=== PATIENT | male | born 1960 | race Caucasian/White ===

== ENCOUNTER 2020-12-25 01:26 | Emergency (ER) | payer MEDICARE, SELFPAY ==
[2020-12-25 01:39] VITALS: BP 120/80; BP 136/82; PULSE 70; PULSE 89; RESP 18; TEMP 37.1; O2SAT 96; O2SAT 98; BMI 26.6
--- NOTE | 2020-12-25 02:12 | ED_ITS ---
HPI - Wound/Laceration General Chief Complaint: Wound/Laceration Stated Complaint: head lac Time Seen by Provider: 12/25/20 02:12 Source: patient and EMS Mode of arrival: EMS History of Present Illness HPI narrative: This is a 60-year-old male who arrives from [facility] via EMS. Patient got out of bed, and was walking and struck his head on the wall without LOC. as per EMS patient is at baseline and ambulated with a steady gait. Patient does not take blood thinners and has no complaints. Related Data Allergies Allergy/AdvReac Type Severity Reaction Status Date / Time No Known Allergies Allergy Unverified 04/05/20 19:36 [No Known Allergies*] Review of Systems Review of Systems: Pertinent positives and negatives as stated in HPI and 10 point review of systems is otherwise negative. 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 Cognitive impairment COPD (chronic obstructive pulmonary disease) COVID-19 Dementia Drug induced subacute dyskinesia Dysphagia Encephalopathy Essential (primary) hypertension Exotropia, alternating, with A pattern Hyperlipidemia Hypermetropia of both eyes Hypothyroidism Palsy (spasm) of conjugate gaze Paranoid schizophrenia Personal history of transient ischemic attack (TIA), and cerebral infarction without residual deficits Ptosis of right eyelid Type 2 diabetes mellitus Surgical History Presence of aortocoronary bypass graft Social History Social History Advance Directives: No Physical Exam Vital Signs: Vital Signs: Last Vital Signs Temp 98.7 F 12/25/20 01:39 Pulse 89 12/25/20 01:39 Resp 18 12/25/20 01:39 BP 136/82 12/25/20 01:39 Pulse Ox 96 12/25/20 01:39 Body Mass Index 26.6 VITAL SIGNS: Reviewed. GENERAL: Well developed, well nourished, in no acute distress. HEAD: Normocephalic/3 cm laceration to the right forehead, hemostatic EYES: PERRLA, EOMI EARS: Ext canals without abnormality NOSE: Nares patent bilateral OROPHARYNX: no oral lesions noted, posterior pharynx clear LUNGS: Normal breath sounds. No adventitious sounds or accessory muscle use. SpO2<96> CARDIOVASCULAR: Regular rate and rhythm without noted murmurs ABDOMEN: Soft, non-tender, non-distended with bowel sounds. NEUROLOGIC: Alert and oriented x 4. Strength and sensation to light touch were grossly intact x 4, noted facial asymmetry with right-sided droop is at baseline, no pronator drift Course Course Course Narrative: This is a 60-year-old male with history and clinical presentation consistent with minor laceration to the right forehead that is hemostatic and was repaired with sutures without complications. He was then discharged back to [facility]. Patient received Tdap. Procedures Laceration Laceration 1: Site: face Side (If applicable): right Size (cm): 3 Description: linear Depth: simple, single layer Local Anesthetic: lidocaine 1% Amount of anesthesia used (mL): 2 Pre-repair: wound explored, irrigated extensively and deep structures intact Skin layer closed with: nylon Size (cm): 4-0 Number of sutures: 6 Technique: simple, interrupted Discharge Plan Discharge Clinical Impression: Laceration Patient Disposition: Home, Self-Care Instructions: Care For Your Stitches (ED), Facial Laceration (ED) Additional Instructions: 1. Resume all home medications as prescribed. 2. May use [id number] Tylenol/ibuprofen as needed for pain control. 3. Sutures should be removed in 5-7 days. May cleanse gently with soap and water and blot dry 4. Follow-up with your primary care provider in next 2-3 days for re-evaluation. Return to the ER for any worsening symptoms. Referrals: Lamonte Jenkins DO [Primary Care Provider] - 2 days (Need suture removal (6))
[2020-12-25 04:00] VITALS: BP 138/71; PULSE 67; RESP 16; O2SAT 98
[2020-12-25] MEDS: Lidocaine HCl 1 % MPF 5 ML VIAL SUBCUT (04:01)
[2020-12-25] MEDS: Diphth,Pertus(ACell),Tet Adult 0.5 ML SYRINGE IM (04:01)
== END 2020-12-25 06:06 | disposition home or self-care (01) ==
PROVIDERS: Emergency Provider Student in an Organized Health Care Education/Training Program; PCP Hospitalist
DX: S01.81XA Laceration without foreign body of other part of head, initial encounter (principal); W22.09XA Striking against other stationary object, initial encounter; I10 Essential (primary) hypertension; E11.9 Type 2 diabetes mellitus without complications; E78.5 Hyperlipidemia, unspecified; Y93.01 Activity, walking, marching and hiking; Y92.129 Unspecified place in nursing home as the place of occurrence of the external cause; Y99.9 Unspecified external cause status; Z86.73 Personal history of transient ischemic attack (TIA), and cerebral infarction without residual deficits
CPT/HCPCS: 12013; 90471; 90715; 99284

== ENCOUNTER 2021-12-13 10:29 | Inpatient (IN) | payer MEDICARE, MEDICAID, SELFPAY ==
[2021-12-13] VITALS (9 sets, daily range): BP systolic 98–136; BP diastolic 50–84; PULSE 75–111; RESP 16–24; TEMP 36.2–36.8; O2SAT 94–99; BMI 25.8; BMI 27.2
--- NOTE | ~2021-12-13 | CT_ITS ---
EXAMINATION: CT CERVICAL SPINE WITHOUT CONTRAST CLINICAL INFORMATION: Fall COMPARISON: None TECHNIQUE: Axial images through the cervical spine without contrast. Sagittal and coronal reconstructions on the technologist workstation were performed. This CT examination was performed using dose optimization techniques as appropriate, variously including the following: *Automated exposure control *Adjustment of mA and/or kV according to patient size (this includes techniques or standardized protocols for targeted exams where dose is matched to indication/reason for exam; i.e. extremities or head) *Use of iterative reconstruction technique DLP: 469 mGy-cm FINDINGS: There is curvature of the lower cervical spine to the left and upper thoracic spine to the right. Bone alignment is otherwise normal. No fracture or dislocation. There is multilevel degenerative spondylosis. Disc spaces are normal. Prevertebral soft tissues are normal. There is atelectasis or consolidation in the posterior right upper lobe. There is evidence of mild emphysema. CT/CT cervical spine wo con IMPRESSION: Degenerative changes. No fracture or dislocation seen. Atelectasis or consolidation in the posterior right upper lobe. Fleischner guidelines were followed.
--- NOTE | ~2021-12-13 | CT_ITS ---
EXAMINATION: CT HEAD WITHOUT CONTRAST CLINICAL INFORMATION: Unwitnessed fall. Lethargy. COMPARISON: None TECHNIQUE: Contiguous axial imaging was performed from the skull base to vertex without intravenous administration of contrast. This CT examination was performed using dose optimization techniques as appropriate, variously including the following: *Automated exposure control *Adjustment of mA and/or kV according to patient size (this includes techniques or standardized protocols for targeted exams where dose is matched to indication/reason for exam; i.e. extremities or head) *Use of iterative reconstruction technique DLP: 692 mGy-cm FINDINGS: There is no evidence of an extra-axial collection. There is no evidence of intra-axial or extra-axial hemorrhage. There is an old left occipital infarct. There is low-attenuation seen at the base of both frontal lobes questionable for changes related to previous trauma, old infarcts or postprocedure changes. [place]-white matter differentiation is normal. No mass or mass effect is seen. Review at bone windows demonstrates no skull fracture. There are mild inflammatory changes in the right maxillary sinus. CT/CT head/brain wo con IMPRESSION: No acute findings. Old left occipital lobe infarct. Low-attenuation seen at the base of both frontal lobes questionable for changes related to previous trauma, old infarcts or postprocedure changes.
--- NOTE | ~2021-12-13 | XR_ITS ---
EXAMINATION: XR CHEST CLINICAL INFORMATION: Shortness of breath. COMPARISON: 11/12/2019 TECHNIQUE: Frontal view of the chest was obtained. FINDINGS: Lungs are symmetrically hypoinflated and grossly clear. No pulmonary edema, consolidation or pleural effusion. No pneumothorax. Cardiac silhouette is normal in size, status post coronary artery bypass graft surgery and coronary artery stenting. The sternotomy wires are intact. The mild gaseous distention of colon is similar in appearance compared to 11/12/2019. XR/XR chest 1V IMPRESSION: No acute pulmonary disease compared to 11/12/2019.
--- NOTE | 2021-12-13 10:59 | ECG_ITS ---
Test Reason : fall Blood Pressure : / mmHG Vent. Rate : 102 BPM Atrial Rate : 000 BPM P-R Int : 000 ms QRS Dur : 092 ms QT Int : 322 ms P-R-T Axes : 000 032 110 degrees QTc Int : 419 ms Atrial fibrillation with rapid ventricular response Nonspecific T wave changes Abnormal ECG When compared with ECG of 12-NOV-2019 11:24, Atrial fibrillation has replaced Sinus rhythm Nonspecific T wave abnormality, improved in Inferior leads Nonspecific T wave abnormality now evident in Lateral leads Referred By: Patricia Andrade Electronically Signed By:Jeb Silveira
--- NOTE | 2021-12-13 11:05 | ED.FALL ---
HPI - Fall General Chief Complaint: Fall Stated Complaint: Fall T-1 Time Seen by Provider: 12/13/21 10:52 Source: EMS, RN notes reviewed and old records reviewed Mode of arrival: EMS Limitations: altered mental status History of Present Illness HPI Narrative: 61 yo male with history of dementia, COPD, DM2, presbyopia, dysphagia, dyskinesia, anemia, hypothyroidism, paranoid schizophrenia, CAD s/p CABG, hx TIA, HLD who presents to the ER from [facility] for evaluation of an unwitnessed fall last night, unknown time. SNF reporting he fell forward out of his wheelchair and patient reported he fell out of his bed. He is lethargic and unable to provide further details. He denies any pain anywhere but has visible abrasions on his head and right wrist. SNF reports this is his baseline mental status. He is not on anticoagulation. complaint: fall Onset (ago): unknown Fall from: out of bed Fall witnessed: no Place fall occurred: long term/SNF Loss of consciousness: unsure Prolonged down time: unclear Location of injury: head Location of injury - extremities: right: forearm and hand Associated symptoms (after fall): denies Related Data Allergies Allergy/AdvReac Type Severity Reaction Status Date / Time No Known Allergies Allergy Unverified 04/05/20 19:36 [No Known Allergies*] Review of Systems Review of Systems: Yes Unobtainable due to mental condition and Unobtainable due to mental status PMFSH Past Medical History Medical History Altered mental status Amblyopia, left eye Anemia 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 Cognitive impairment COPD (chronic obstructive pulmonary disease) COVID-19 Dementia Drug induced subacute dyskinesia Dysphagia Encephalopathy Essential (primary) hypertension Exotropia, alternating, with A pattern Hyperlipidemia Hypermetropia of both eyes Hypothyroidism Palsy (spasm) of conjugate gaze Paranoid schizophrenia Personal history of transient ischemic attack (TIA), and cerebral infarction without residual deficits Ptosis of right eyelid Type 2 diabetes mellitus Surgical History Presence of aortocoronary bypass graft Social History Social History Patient Tobacco Use Status: Tobacco use Unknown Advance Directives: Yes Advance Directives Information Provided: No Advance Directives on File: No Physical Exam Vital Signs: Vital Signs: Last Vital Signs Temp 97.2 F 12/13/21 10:55 Pulse 100 12/13/21 13:00 Resp 17 12/13/21 13:00 BP 99/65 12/13/21 13:00 Pulse Ox 98 12/13/21 13:00 BMI result Body Mass Index 27.2 Appearance: Lethargic elderly male laying in stretcher, c-collar in place. No acute distress. Eyes: Pupils equal, round and reactive to light. left eye deviation ENT: Pharynx normal. Neck: C collar in place, no midline tenderness CVS: tachycardic, irregularly irregular rhythm. Pulses normal. Respiratory: No respiratory distress. Breath sounds normal. Abdomen: Soft and nontender. +BS x4 Skin: Skin warm and dry. Normal skin color. Normal skin turgor. No rashes. Extremities: right dorsal distal forearm and posterior hand with minor abrasions, no joint swelling or point tenderness. No lower extremity edema. No LE trauma visible. Pelvis stable and nontender. Neuro: Oriented X 1. Moves all extremities, follows basic commands intermittently. Course Course Course Narrative: 61 y/o male with history of dementia, paranoid schizophrenia who comes from [facility] for evaluation of an unwitnessed fall. On examination he has minor abrasions to his forehead and scalp, right wrist and hand. He denies any pain. He is lethargic but this is reportedly is baseline mental status. He is found to be new onset AFib with rapid ventricular response, heart rate 1 teens. The blood pressure stable [address] head and neck to rule out traumatic injury, lab workup. Reevaluation(s) Reevaluation #1: Critical result of troponin 466.2. He has a history of CABG, unknown when and where and on what vessel. He denies any shortness of breath or chest pain at this time. Awaiting CT head and neck results prior to initiating heparin for NSTEMI. Given 5 mg IV lopressor with improvement in heart rates to 90s. Blood pressure remained stable. Dr. Silveira has been tired texted for consultation. lactic 2.4. patient not septic at this time. low suspicion for acute infection. UA is still pending, patient currently refusing. IVF infusing, repeat lactic ordered. BP stable. Reevaluation #2: Dr. Silveira agrees with medical management. CT head/neck without acute traumatic findings. IV heparin ordered as well as additional metoprolol, HR back up 110s. Dr. Arguello TT for admission for NSTEMI and new onset afib. Reevaluation #3: 2:30 - converted to NSR. HR 80s. repeat EKG and troponin pending. Consultations Consultation #1: Cardiology - Dr. Silveira [facility] - [facility] Medical Records Attestation: I reviewed the patient's medical records. Lab Data Attestation: I reviewed the patient's lab results. Result diagrams: 12/13/21 11:24 12/13/21 11:24 Labs: Lab Results 12/13/21 12/13/21 12/13/21 Range/Units 11:05 11:23 11:24 WBC 13.8 H (4.8-10.8) X10*3/uL RBC 4.94 (4.60-5.80) X10*6/uL Hgb 14.1 (14.0-18.0) g/dl Hct 42.2 (42.0-52.0) % MCV 85.4 (80.0-98.0) fL MCH 28.5 (27.0-33.0) pg MCHC 33.4 (31.0-36.0) g/dl RDW 15.0 (11.0-16.0) % Plt Count 194 (160-400) X10*3/uL MPV 10.4 (9.4-12.4) fL Immature Gran % (Auto) 0.4 (0.0-0.4) % Neut % (Auto) 75.8 H (45-73) % Lymph % (Auto) 11.7 L (20-40) % [place] % (Auto) 11.9 H (2-11) % Eos % (Auto) 0.1 (0-4) % Baso % (Auto) 0.1 (0-2) % Lymph # (Auto) 1.6 (1.2-4.9) X10*3/uL [place] # (Auto) 1.6 H (0.1-1.2) X10*3/uL Eos # (Auto) 0.0 (0.0-0.4) X10*3/uL Baso # (Auto) 0.0 (0.0-0.2) X10*3/uL Abs Immat Gran (auto) 0.06 H (0.00-0.03) X10*3/uL Absolute Neuts (auto) 10.5 H (2.0-8.3) x10*3/uL Absolute Nucleated RBC 0.000 (0.0-0.012) X10*3/uL Nucleated RBC % (auto) 0.0 (0.0-0.2) /100WBC Smear Tech's Comments VERIFIED PT (9.9-13.0) SEC INR (0.9-1.1) APTT (24.1-38.0) SEC Sodium (135-145) mmol/L Potassium (3.3-5.1) mmol/L Chloride (96-108) mmol/L Carbon Dioxide (22-29) mmol/L Anion Gap (12-20) BUN (9-16) mg/dL Creatinine (0.5-1.4) mg/dL Estim Creat Clear Calc Estimated GFR POC Glucose 148 H (60-115) mg/dL Random Glucose (60-115) mg/dL Lactic Acid (0.5-2.0) mmol/L Calcium (8.4-10.2) mg/dL Magnesium (1.6-2.6) mg/dL Total Bilirubin (0.0-1.0) mg/dL Direct Bilirubin (0.0-0.5) mg/dL AST (5-37) U/L ALT (0-40) U/L Alkaline Phosphatase (39-117) U/L Ammonia 19 (13-55) umol/L Troponin I High Sens (<3.5-35.0) ng/L B-Natriuretic Peptide (<100) pg/mL Total Protein (6.5-8.0) g/dL Albumin (3.5-5.0) g/dL TSH (0.32-4.0) uIU/mL COVID-19 (NEEMA) (Negative) COVID-19 Clin Com Influenza Type A (JORGE L) (Negative) Influenza Type B (JORGE L) (Negative) Influenza A & B Note 12/13/21 12/13/21 12/13/21 Range/Units 11:24 11:24 11:24 WBC (4.8-10.8) X10*3/uL RBC (4.60-5.80) X10*6/uL Hgb (14.0-18.0) g/dl Hct (42.0-52.0) % MCV (80.0-98.0) fL MCH (27.0-33.0) pg MCHC (31.0-36.0) g/dl RDW (11.0-16.0) % Plt Count (160-400) X10*3/uL MPV (9.4-12.4) fL Immature Gran % (Auto) (0.0-0.4) % Neut % (Auto) (45-73) % Lymph % (Auto) (20-40) % [place] % (Auto) (2-11) % Eos % (Auto) (0-4) % Baso % (Auto) (0-2) % Lymph # (Auto) (1.2-4.9) X10*3/uL [place] # (Auto) (0.1-1.2) X10*3/uL Eos # (Auto) (0.0-0.4) X10*3/uL Baso # (Auto) (0.0-0.2) X10*3/uL Abs Immat Gran (auto) (0.00-0.03) X10*3/uL Absolute Neuts (auto) (2.0-8.3) x10*3/uL Absolute Nucleated RBC (0.0-0.012) X10*3/uL Nucleated RBC % (auto) (0.0-0.2) /100WBC Smear Tech's Comments PT 13.5 H (9.9-13.0) SEC INR 1.2 H (0.9-1.1) APTT 35.1 (24.1-38.0) SEC Sodium 136 (135-145) mmol/L Potassium 4.1 (3.3-5.1) mmol/L Chloride 102 (96-108) mmol/L Carbon Dioxide 25 (22-29) mmol/L Anion Gap 13 (12-20) BUN 13 (9-16) mg/dL Creatinine 0.93 (0.5-1.4) mg/dL Estim Creat Clear Calc 79.6 Estimated GFR > 60 POC Glucose (60-115) mg/dL Random Glucose 151 H (60-115) mg/dL Lactic Acid (0.5-2.0) mmol/L Calcium 9.6 (8.4-10.2) mg/dL Magnesium 1.8 (1.6-2.6) mg/dL Total Bilirubin 0.9 (0.0-1.0) mg/dL Direct Bilirubin 0.4 (0.0-0.5) mg/dL AST 58 H (5-37) U/L ALT 25 (0-40) U/L Alkaline Phosphatase 115 (39-117) U/L Ammonia (13-55) umol/L Troponin I High Sens 466.2 H* (<3.5-35.0) ng/L B-Natriuretic Peptide 79 (<100) pg/mL Total Protein 6.8 (6.5-8.0) g/dL Albumin 4.0 (3.5-5.0) g/dL TSH (0.32-4.0) uIU/mL COVID-19 (NEEMA) (Negative) COVID-19 Clin Com Influenza Type A (JORGE L) (Negative) Influenza Type B (JORGE L) (Negative) Influenza A & B Note 12/13/21 12/13/21 12/13/21 Range/Units 11:24 11:25 11:39 WBC (4.8-10.8) X10*3/uL RBC (4.60-5.80) X10*6/uL Hgb (14.0-18.0) g/dl Hct (42.0-52.0) % MCV (80.0-98.0) fL MCH (27.0-33.0) pg MCHC (31.0-36.0) g/dl RDW (11.0-16.0) % Plt Count (160-400) X10*3/uL MPV (9.4-12.4) fL Immature Gran % (Auto) (0.0-0.4) % Neut % (Auto) (45-73) % Lymph % (Auto) (20-40) % [place] % (Auto) (2-11) % Eos % (Auto) (0-4) % Baso % (Auto) (0-2) % Lymph # (Auto) (1.2-4.9) X10*3/uL [place] # (Auto) (0.1-1.2) X10*3/uL Eos # (Auto) (0.0-0.4) X10*3/uL Baso # (Auto) (0.0-0.2) X10*3/uL Abs Immat Gran (auto) (0.00-0.03) X10*3/uL Absolute Neuts (auto) (2.0-8.3) x10*3/uL Absolute Nucleated RBC (0.0-0.012) X10*3/uL Nucleated RBC % (auto) (0.0-0.2) /100WBC Smear Tech's Comments PT (9.9-13.0) SEC INR (0.9-1.1) APTT (24.1-38.0) SEC Sodium (135-145) mmol/L Potassium (3.3-5.1) mmol/L Chloride (96-108) mmol/L Carbon Dioxide (22-29) mmol/L Anion Gap (12-20) BUN (9-16) mg/dL Creatinine (0.5-1.4) mg/dL Estim Creat Clear Calc Estimated GFR POC Glucose (60-115) mg/dL Random Glucose (60-115) mg/dL Lactic Acid 2.4 H* (0.5-2.0) mmol/L Calcium (8.4-10.2) mg/dL Magnesium (1.6-2.6) mg/dL Total Bilirubin (0.0-1.0) mg/dL Direct Bilirubin (0.0-0.5) mg/dL AST (5-37) U/L ALT (0-40) U/L Alkaline Phosphatase (39-117) U/L Ammonia (13-55) umol/L Troponin I High Sens (<3.5-35.0) ng/L B-Natriuretic Peptide (<100) pg/mL Total Protein (6.5-8.0) g/dL Albumin (3.5-5.0) g/dL TSH 0.42 (0.32-4.0) uIU/mL COVID-19 (NEEMA) Negative (Negative) COVID-19 Clin Com See Note Influenza Type A (JORGE L) (Negative) Influenza Type B (JORGE L) (Negative) Influenza A & B Note 12/13/21 Range/Units 11:39 WBC (4.8-10.8) X10*3/uL RBC (4.60-5.80) X10*6/uL Hgb (14.0-18.0) g/dl Hct (42.0-52.0) % MCV (80.0-98.0) fL MCH (27.0-33.0) pg MCHC (31.0-36.0) g/dl RDW (11.0-16.0) % Plt Count (160-400) X10*3/uL MPV (9.4-12.4) fL Immature Gran % (Auto) (0.0-0.4) % Neut % (Auto) (45-73) % Lymph % (Auto) (20-40) % [place] % (Auto) (2-11) % Eos % (Auto) (0-4) % Baso % (Auto) (0-2) % Lymph # (Auto) (1.2-4.9) X10*3/uL [place] # (Auto) (0.1-1.2) X10*3/uL Eos # (Auto) (0.0-0.4) X10*3/uL Baso # (Auto) (0.0-0.2) X10*3/uL Abs Immat Gran (auto) (0.00-0.03) X10*3/uL Absolute Neuts (auto) (2.0-8.3) x10*3/uL Absolute Nucleated RBC (0.0-0.012) X10*3/uL Nucleated RBC % (auto) (0.0-0.2) /100WBC Smear Tech's Comments PT (9.9-13.0) SEC INR (0.9-1.1) APTT (24.1-38.0) SEC Sodium (135-145) mmol/L Potassium (3.3-5.1) mmol/L Chloride (96-108) mmol/L Carbon Dioxide (22-29) mmol/L Anion Gap (12-20) BUN (9-16) mg/dL Creatinine (0.5-1.4) mg/dL Estim Creat Clear Calc Estimated GFR POC Glucose (60-115) mg/dL Random Glucose (60-115) mg/dL Lactic Acid (0.5-2.0) mmol/L Calcium (8.4-10.2) mg/dL Magnesium (1.6-2.6) mg/dL Total Bilirubin (0.0-1.0) mg/dL Direct Bilirubin (0.0-0.5) mg/dL AST (5-37) U/L ALT (0-40) U/L Alkaline Phosphatase (39-117) U/L Ammonia (13-55) umol/L Troponin I High Sens (<3.5-35.0) ng/L B-Natriuretic Peptide (<100) pg/mL Total Protein (6.5-8.0) g/dL Albumin (3.5-5.0) g/dL TSH (0.32-4.0) uIU/mL COVID-19 (NEEMA) (Negative) COVID-19 Clin Com Influenza Type A (JORGE L) Negative (Negative) Influenza Type B (JORGE L) Negative (Negative) Influenza A & B Note See Note ECG Data Attestation: I personally reviewed and interpreted this ECG as follows: ECG interpretation date: 12/13/21 ECG interpretation time: 11:43 Prior ECG tracings: available for review Interpretation: 1st - afib with RVR, HR 102 bpm, no ST segment elevations or depressions, new onset afib from 2019 2nd @ 2:39 - sinus rhythm with sinus arrhythmia, heart rate 75 beats per minute, P-waves present with short run of ?AFib buried within, no ST segment elevations or depressions. Critical Care Time Critical Care Time Critical Care Time: Yes Total Critical Care Time: 48 Attestation: I have personally provided critical care time exclusive of time spent on separately billable procedures. Time includes review of lab data, radiology results, discussion with consultants, and monitoring for potential decompensation. Intervention performed as documented. Discharge Plan Discharge Clinical Impression: Non-ST elevation [place] (NSTEMI), Atrial fibrillation, new onset Patient Disposition: Admitted As Inpatient
[2021-12-13 11:09] LABS: Glucose, Whole Blood 148 mg/dL (60-115)
[2021-12-13] MEDS: 0.9 % Sodium Chloride 1,000 ML 999 ML IVCONT (11:27)
--- NOTE | 2021-12-13 11:30 | PC.NURSE ---
pt very sleepy but does wake up to touch, pt does not open his eyes on his own, when lids lifted pupils pinpoint but reactive to light, abrasions to his right/frontal hear area, but not answering questions will just grunt at this time, pt also slightly tachy cardic around 110-113 a-fib
[2021-12-13 11:32] LABS: Basophils Percent Auto 0.1 % (0-2); Eosinophils Percent Auto 0.1 % (0-4); Hematocrit 42.2 % (42.0-52.0); Hemoglobin 14.1 g/dl (14.0-18.0); Imm Gran Abs Auto 0.06 X10*3/uL (0.00-0.03); Imm Gran Pct Auto 0.4 % (0.0-0.4); Lymphocytes Absolute Auto 1.6 X10*3/uL (1.2-4.9); Lymphocytes Percent Auto 11.7 % (20-40); MANUAL DIFF FLAG SCAN; Mean Corpuscular HGB Conc 33.4 g/dl (31.0-36.0); Mean Corpuscular Hemoglobin 28.5 pg (27.0-33.0); Mean Corpuscular Volume 85.4 fL (80.0-98.0); Mean Platelet Volume 10.4 fL (9.4-12.4); Monocytes Absolute Auto 1.6 X10*3/uL (0.1-1.2); Monocytes Percent Auto 11.9 % (2-11); Neutrophils Absolute Auto 10.5 x10*3/uL (2.0-8.3); Neutrophils Percent Auto 75.8 % (45-73); Platelet Count 194 X10*3/uL (160-400); Red Blood Count 4.94 X10*6/uL (4.60-5.80); SCAN SMEAR FLAG 1; White Blood Count 13.8 X10*3/uL (4.8-10.8)
[2021-12-13 11:37] LABS: INTERNATIONAL NORM RATIO 1.2 (0.9-1.1); Prothrombin Time 13.5 SEC (9.9-13.0)
[2021-12-13 11:38] LABS: Ammonia 19 umol/L (13-55)
[2021-12-13 11:40] LABS: Partial Thromboplastin Time 35.1 SEC (24.1-38.0)
[2021-12-13 11:48] LABS: Alanine Aminotransferase 25 U/L (0-40); Alkaline Phosphatase 115 U/L (39-117); Anion Gap 13 (12-20); Aspartate Amino Transferase 58 U/L (5-37); Bilirubin Direct 0.4 mg/dL (0.0-0.5); Bilirubin Total 0.9 mg/dL (0.0-1.0); Blood Urea Nitrogen 13 mg/dL (9-16); Calcium 9.6 mg/dL (8.4-10.2); Carbon Dioxide 25 mmol/L (22-29); Chloride 102 mmol/L (96-108); Creatinine Clr Calc Pharmacy 79.6; Estimated Glomerular Filt Rate > 60; Glucose Random 151 mg/dL (60-115); Magnesium 1.8 mg/dL (1.6-2.6); Potassium 4.1 mmol/L (3.3-5.1); Sodium 136 mmol/L (135-145); Total Protein 6.8 g/dL (6.5-8.0)
[2021-12-13 11:49] LABS: SLIDE REVIEW VERIFIED
[2021-12-13 11:55] LABS: Troponin-I High Sensitivity 466.2 ng/L (<3.5-35.0)
[2021-12-13 11:56] LABS: Lactic Acid 2.4 mmol/L (0.5-2.0)
[2021-12-13 12:07] LABS: IDNOW Serial# 9DB6401D; Influenza A Negative (Negative); Influenza B2 Negative (Negative)
[2021-12-13 12:09] LABS: COVID-19 Test Negative (Negative); IDNOW Serial# 55D5AD1C
[2021-12-13 12:09] LABS: TSH reflex Free T4 0.42 uIU/mL (0.32-4.0)
[2021-12-13] MEDS: Metoprolol Tartrate 5 MG/5 ML VIAL IVPUSH (12:11)
--- NOTE | 2021-12-13 12:15 | PC.NURSE ---
attempting to strey cath the pt, pt becomes very agitated and combative swinging at this rn aware that unable to obtain a urine sample at this time
[2021-12-13 12:35] LABS: B Type Natriuretic Peptide 79 pg/mL (<100)
[2021-12-13 13:28] LABS: Reflex Lactate? Lactic Acid Added
--- NOTE | 2021-12-13 14:30 | PC.NURSE ---
pt broke the a-fib and is in normal sinus
--- NOTE | 2021-12-13 14:32 | ECG_ITS ---
Test Reason : weakness Blood Pressure : / mmHG Vent. Rate : 075 BPM Atrial Rate : 075 BPM P-R Int : 234 ms QRS Dur : 088 ms QT Int : 346 ms P-R-T Axes : 044 021 066 degrees QTc Int : 386 ms Sinus rhythm Premature atrial complexes with 1st degree A-V block Otherwise normal ECG When compared with ECG of 13-DEC-2021 11:18, Sinus rhythm has replaced Atrial fibrillation Referred By: Patricia Andrade Electronically Signed By:Jeb Silveira
--- NOTE | 2021-12-13 14:57 | P.HPHOSP_ITS ---
History of Present Illness Date of Service: 12/13/21 Chief Complaint: Fall, new Afib 61 yo male from [facility] with history of dementia, paranoid schizophrenia, COPD, DM2, presbyopia, dysphagia, dyskinesia, anemia, hypothyroidism, enia, CAD s/p CABG, hx TIA, HLD brought to ED to be evaluated for an night with unclear circumstance, but believed that he fell forward as he has injury to the forhead while in a wheelchair, although the patient states that he fell out of a bed but he is a very unreliable historian as he is not able to elaborate on any detail. He is found to be in AFIB with RVR given IV metoprolol 5 mg coverted to sinus but then went back into it. His initial troponin is 466, he denies chest pain , ECG show no obvious ischemic changes. Review of Systems Review of Systems: no chest pain baseline confusion no palpitation Yes all other systems are reviewed and are negative ON LICENSE OF [facility] Medical History Altered mental status Amblyopia, left eye Anemia Atherosclerotic heart disease of [place] coronary artery without angina pectoris Boutonniere deformity of finger Cognitive impairment COPD (chronic obstructive pulmonary disease) COVID-19 Dementia Drug induced subacute dyskinesia Dysphagia Encephalopathy Essential (primary) hypertension Exotropia, alternating, with A pattern Hyperlipidemia Hypermetropia of both eyes Hypothyroidism Palsy (spasm) of conjugate gaze Paranoid schizophrenia Personal history of transient ischemic attack (TIA), and cerebral infarction without residual deficits Ptosis of right eyelid Type 2 diabetes mellitus Surgical History Presence of aortocoronary bypass graft Social History Patient Tobacco Use Status: Tobacco use Unknown Advance Directives: Yes Advance Directives Information Provided: No Advance Directives on File: No service: No Current occupational status: disabled Meds Allergies Allergy/AdvReac Type Severity Reaction Status Date / Time No Known Allergies Allergy Unverified 04/05/20 19:36 [No Known Allergies*] Active Medications: Current Medications Heparin Sodium (Porcine) (Heparin Sodium,Porcine 5,000 Unit/Ml Vial) 3,300 unit 40 unit/kg (3300 unit) IVPUSH PROTOCOL BOLUS PRN; Protocol PRN Reason: 40 unit/kg - Heparin Protocol Heparin Sodium (Porcine) (Heparin Sodium,Porcine 5,000 Unit/Ml Vial) 6,500 unit 80 unit/kg (6500 unit) IVPUSH PROTOCOL BOLUS PRN; Protocol PRN Reason: 80 unit/kg - Heparin Protocol Heparin Sodium/Sodium Chloride () 25,000 unit in 250 mls @ 0 mls/hr IVCONT .Q0M COLIN; Protocol Home Medications Medication Instructions Recorded Confirmed Last Taken Type aspirin 81 mg chewable tablet 81 mg PO DAILY 12/13/21 12/13/21 12/12/21 History atorvastatin 80 mg tablet 1 tab PO DAILY 12/13/21 12/13/21 12/12/21 History canagliflozin 100 mg tablet 1 tab PO DAILY 12/13/21 12/13/21 12/12/21 History (Invokana) clozapine 200 mg tablet 1 tab PO BEDTIME 12/13/21 12/13/21 12/12/21 History dulaglutide 0.75 mg/0.5 mL 0.5 ml SUBCUT WE 12/13/21 12/13/21 12/12/21 History subcutaneous pen injector (Trulicity) ferrous sulfate 325 mg (65 mg 325 mg PO DAILY 12/13/21 12/13/21 12/12/21 History iron) tablet insulin glargine 100 unit/mL (3 20 unit SUBCUT BID 12/13/21 12/13/21 12/12/21 History mL) subcutaneous pen (Lantus Solostar U-100 Insulin) lactulose 10 gram/15 mL oral 30 ml PO DAILY 12/13/21 12/13/21 12/12/21 History solution levothyroxine 75 mcg tablet 1 tab PO DAILY 12/13/21 12/13/21 12/12/21 History linagliptin 5 mg tablet (Tradjenta) 1 tab PO DAILY 12/13/21 12/13/21 12/12/21 History metformin 1,000 mg tablet 1 tab PO BID 12/13/21 12/13/21 12/12/21 History omega 3-vma-gpx-fish oil 1,000 mg 1 cap PO BID 12/13/21 12/13/21 12/12/21 History (120 mg-180 mg) capsule (Fish Oil) pantoprazole 40 mg tablet,delayed 1 tab PO BID 12/13/21 12/13/21 12/12/21 History release Physical Exam Vital Signs and Narrative: Vital Signs: Last Vital Signs Temp 97.2 F 12/13/21 10:55 Pulse 100 12/13/21 13:00 Resp 17 12/13/21 13:00 BP 99/65 12/13/21 13:00 Pulse Ox 98 12/13/21 13:00 BMI result Body Mass Index 27.2 Const: Other: Constitutional: Alert, in no distress, overweight. Mental Status: Oriented to person, place and time. Eyes: Pupils are equal, round and reactive to light. Ear, Nose and Throat: Oropharynx clear, mucous membranes moist. Ears and nose without eformities. Trachea midline. Respiratory: Clear to auscultation. No wheezing, rales or rhonchi. Cardiovascular: S1 S2 iregul irregular. No murmurs, rubs or gallops. Gastrointestinal: Abdomen soft, non-tender, non-distended. Normal bowel sounds.? Neurologic: Cranial nerves II-XII grossly intact. No focal neurological deficits. Moves all extremities spontaneously.? Skin: No rashes or lesions.? Musculoskeletal: No cyanosis or clubbing. Psychiatric: Normal mood and affect? Results Labs CBC and Chem 7: 12/13/21 11:24 12/13/21 11:24 Labs: Laboratory Results - last 24 hr 12/13/21 12/13/21 12/13/21 11:05 11:23 11:24 MCV 85.4 MCH 28.5 MCHC 33.4 RDW 15.0 Plt Count 194 MPV 10.4 Immature Gran % (Auto) 0.4 Neut % (Auto) 75.8 H Lymph % (Auto) 11.7 L [place] % (Auto) 11.9 H Eos % (Auto) 0.1 Baso % (Auto) 0.1 Lymph # (Auto) 1.6 [place] # (Auto) 1.6 H Eos # (Auto) 0.0 Baso # (Auto) 0.0 Abs Immat Gran (auto) 0.06 H Absolute Neuts (auto) 10.5 H Absolute Nucleated RBC 0.000 Nucleated RBC % (auto) 0.0 Smear Tech's Comments VERIFIED PT INR APTT Anion Gap Estim Creat Clear Calc Estimated GFR POC Glucose 148 H Random Glucose Lactic Acid Calcium Magnesium Total Bilirubin Direct Bilirubin AST ALT Alkaline Phosphatase Ammonia 19 Troponin I High Sens B-Natriuretic Peptide Total Protein Albumin TSH COVID-19 (NEEMA) COVID-19 Clin Com Influenza Type A (JORGE L) Influenza Type B (JORGE L) Influenza A & B Note 12/13/21 12/13/21 12/13/21 11:24 11:24 11:24 MCV MCH MCHC RDW Plt Count MPV Immature Gran % (Auto) Neut % (Auto) Lymph % (Auto) [place] % (Auto) Eos % (Auto) Baso % (Auto) Lymph # (Auto) [place] # (Auto) Eos # (Auto) Baso # (Auto) Abs Immat Gran (auto) Absolute Neuts (auto) Absolute Nucleated RBC Nucleated RBC % (auto) Smear Tech's Comments PT 13.5 H INR 1.2 H APTT 35.1 Anion Gap 13 Estim Creat Clear Calc 79.6 Estimated GFR > 60 POC Glucose Random Glucose 151 H Lactic Acid Calcium 9.6 Magnesium 1.8 Total Bilirubin 0.9 Direct Bilirubin 0.4 AST 58 H ALT 25 Alkaline Phosphatase 115 Ammonia Troponin I High Sens 466.2 H* B-Natriuretic Peptide 79 Total Protein 6.8 Albumin 4.0 TSH COVID-19 (NEEMA) COVID-19 Clin Com Influenza Type A (JORGE L) Influenza Type B (JORGE L) Influenza A & B Note 12/13/21 12/13/21 12/13/21 11:24 11:25 11:39 MCV MCH MCHC RDW Plt Count MPV Immature Gran % (Auto) Neut % (Auto) Lymph % (Auto) [place] % (Auto) Eos % (Auto) Baso % (Auto) Lymph # (Auto) [place] # (Auto) Eos # (Auto) Baso # (Auto) Abs Immat Gran (auto) Absolute Neuts (auto) Absolute Nucleated RBC Nucleated RBC % (auto) Smear Tech's Comments PT INR APTT Anion Gap Estim Creat Clear Calc Estimated GFR POC Glucose Random Glucose Lactic Acid 2.4 H* Calcium Magnesium Total Bilirubin Direct Bilirubin AST ALT Alkaline Phosphatase Ammonia Troponin I High Sens B-Natriuretic Peptide Total Protein Albumin TSH 0.42 COVID-19 (NEEMA) Negative COVID-19 Clin Com See Note Influenza Type A (JORGE L) Influenza Type B (JORGE L) Influenza A & B Note 12/13/21 11:39 MCV MCH MCHC RDW Plt Count MPV Immature Gran % (Auto) Neut % (Auto) Lymph % (Auto) [place] % (Auto) Eos % (Auto) Baso % (Auto) Lymph # (Auto) [place] # (Auto) Eos # (Auto) Baso # (Auto) Abs Immat Gran (auto) Absolute Neuts (auto) Absolute Nucleated RBC Nucleated RBC % (auto) Smear Tech's Comments PT INR APTT Anion Gap Estim Creat Clear Calc Estimated GFR POC Glucose Random Glucose Lactic Acid Calcium Magnesium Total Bilirubin Direct Bilirubin AST ALT Alkaline Phosphatase Ammonia Troponin I High Sens B-Natriuretic Peptide Total Protein Albumin TSH COVID-19 (NEEMA) COVID-19 Clin Com Influenza Type A (JORGE L) Negative Influenza Type B (JORGE L) Negative Influenza A & B Note See Note Imaging Radiologist's Impressions: Impressions Cervical Spine CT 12/13/21 12:35 IMPRESSION: Degenerative changes. No fracture or dislocation seen. Atelectasis or consolidation in the posterior right upper lobe. Fleischner guidelines were followed. Head CT 12/13/21 12:35 IMPRESSION: No acute findings. Old left occipital lobe infarct. Low-attenuation seen at the base of both frontal lobes questionable for changes related to previous trauma, old infarcts or postprocedure changes. Assessment and Plan (1) Non-ST elevation [place] (NSTEMI): Status: Acute (2) Atrial fibrillation, new onset: Status: Acute Plan 61 yo male from [facility] with history of dementia, paranoid schizophrenia, COPD, DM2, presbyopia, dysphagia, dyskinesia, anemia, hypothyroidism, enia, CAD s/p CABG, hx TIA, HLD being admitted for new onset AFIB, and NSTEMMI and ? syncope #AFIB with RVR--improved with IV metoprolol, will add oral Metoprolol 25 q6, echo tomorrow, anticoagulation with heparin #NSTEMI--Medical management with Heparin, ASA, BB, statin and cardiology to assess #? 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
[2021-12-13] MEDS: Heparin Sodium,Porcine/1/2NS 25,000 UNIT/250 ML IV.SOLN 9.76 UNIT IVCONT (15:20)
--- NOTE | 2021-12-13 15:34 | PC.NURSE ---
mariah perez delayed because pt pulled out his original iv out, hard stick finally gained another iv access pt is back in a-fib but rate controlled in the '
[2021-12-13 15:35] LABS: ~Lactic Acid-LAB USE ONLY 1.7 mmol/L (0.5-2.0)
[2021-12-13] MEDS: 0.9 % Sodium Chloride Flush 3 ML SYRINGE IVFLUSH (15:37)
[2021-12-13 15:47] LABS: Troponin-I High Sensitivity 367.3 ng/L (<3.5-35.0)
[2021-12-13] MEDS: Metoprolol Tartrate 25 MG TABLET PO ×2 (16:27→21:20)
--- NOTE | 2021-12-13 17:03 | PC.NURSE ---
PATIENT WAS INC OF URINE ,CARE WAS GIVEN AND BEDDING CHANGED .
[2021-12-13 17:12] LABS: Glucose, Whole Blood 98 mg/dL (60-115)
--- NOTE | 2021-12-13 17:13 | PHA.MEDREC ---
Pharmacy Consult ? Medication Reconciliation Pharmacy has completed the medication reconciliation. LAST CLOZAPINE DOSE 12/12
[2021-12-13 17:36] LABS: Appearance Urine CLEAR; Color Urine YELLOW; Glucose Urine UA >=1000 MG/DL (NEG); Leukocyte Esterase Urine NEG (NEG); Nitrite Urine NEG (NEG); PH 5.5 (5.0-8.0); UACC Culture Trigger NO; Urine Blood TRACE (NEG); Urine Ketones NEG (NEG); Urine Protein NEG (NEG-TRACE)
[2021-12-13 17:45] LABS: Squamous Epithelial Cell Urine 1+ /LPF; WBC Urine 0 /HPF (0-4)
[2021-12-13] MEDS: Atorvastatin Calcium 40 MG TABLET PO (21:21)
[2021-12-13] MEDS: Docusate Sodium 100 MG CAPSULE PO (21:21)
[2021-12-13 22:13] LABS: PTT Heparin Drip 72.9 SEC (53-77.9)
--- NOTE | 2021-12-13 23:46 | PC.NURSE ---
pt provided perineal care & linen change
[2021-12-14] VITALS (9 sets, daily range): BP systolic 96–122; BP diastolic 56–82; PULSE 77–87; RESP 12–19; TEMP 35.9–36.4; O2SAT 96–100
--- NOTE | 2021-12-14 02:43 | PC.NURSE ---
pt note secondary to pt care, pt found standing out of bed, pt found to have defecated on floor, pt assisted back to bed and provided perineal care, no safety issues,
[2021-12-14 03:55] LABS: PTT Heparin Drip 80.4 SEC (53-77.9)
--- NOTE | 2021-12-14 04:29 | PC.NURSE ---
MD aware of pt BP, plan to hold metoprolol at this time
[2021-12-14] MEDS: Docusate Sodium 100 MG CAPSULE PO ×2 (07:26→21:24)
[2021-12-14] MEDS: Aspirin Enteric Coated 81 MG TABLET.DR PO (07:26)
[2021-12-14] MEDS: 0.9 % Sodium Chloride Flush 3 ML SYRINGE IVFLUSH ×3 (07:26→21:25)
--- NOTE | 2021-12-14 07:32 | PC.NURSE ---
Pt resting in hospital bed. sleeping between care. VSS. no c/o pain. pt took meds whole with water.
--- NOTE | 2021-12-14 09:43 | MHC.CM.PN ---
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
[2021-12-14 09:51] LABS: PTT Heparin Drip 51.1 SEC (53-77.9)
[2021-12-14] MEDS: Heparin Sodium,Porcine 5,000 UNIT/ML VIAL 3300 UNIT IVPUSH (10:05)
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
--- NOTE | 2021-12-14 11:25 | PC.NURSE ---
Heparin gtt stopped per verbal order of Dr. Andersen
--- NOTE | 2021-12-14 11:43 | PM.CNCAR ---
History of Present Illness History of Present Illness Date of Service: 12/14/21 Requesting physician: Yandel Andersen Chief complaint: NSTEMI, AFib with RVR Narrative: 61-year-old gentleman who is from [facility]. We are consulted for new onset atrial fibrillation and NSTEMI. No history is possible from the patient. By chart review he has history of dementia, paranoid schizophrenia, COPD, diabetes, presbyopia, dysphagia, dyskinesis, anemia, hypothyroidism, coronary disease with previous CABG, TIA and hyperlipidemia. It appears he was admitted with a fall with some injury to his forehead. Patient is unable to give any history and is quite agitated when woken up. He was noted to have mildly abnormal high sensitivity troponin levels. He was also noted to have new onset atrial fibrillation. No symptoms reported by patient and is currently back in sinus rhythm. [facility] Past Medical History Medical History Altered mental status Amblyopia, left eye Anemia Atherosclerotic heart disease of [place] coronary artery without angina pectoris Boutonniere deformity of finger Cognitive impairment COPD (chronic obstructive pulmonary disease) COVID-19 Dementia Drug induced subacute dyskinesia Dysphagia Encephalopathy Essential (primary) hypertension Exotropia, alternating, with A pattern Hyperlipidemia Hypermetropia of both eyes Hypothyroidism Palsy (spasm) of conjugate gaze Paranoid schizophrenia Personal history of transient ischemic attack (TIA), and cerebral infarction without residual deficits Ptosis of right eyelid Type 2 diabetes mellitus Surgical History Surgical History Presence of aortocoronary bypass graft Social History Social History Patient Tobacco Use Status: Tobacco use Unknown Advance Directives: Yes Advance Directives Information Provided: No Advance Directives on File: No service: No Current occupational status: disabled Meds Allergies Allergy/AdvReac Type Severity Reaction Status Date / Time No Known Allergies Allergy Unverified 04/05/20 19:36 [No Known Allergies*] Active Medications: Current Medications Acetaminophen (Acetaminophen 325 Mg Tablet) 650 mg PO Q6H PRN PRN Reason: Pain, Mild (Pain Scale 1-3) Aspirin (Aspirin Enteric Coated 81 Mg Tablet.) 81 mg PO DAILY COLIN Last Admin: 12/14/21 07:26 Dose: 81 mg Documented by: Atorvastatin Calcium (Atorvastatin Calcium 40 Mg Tablet) 40 mg PO BEDTIME [facility] Last Admin: 12/13/21 21:21 Dose: 40 mg Documented by: Docusate Sodium (Docusate Sodium 100 Mg Capsule) 100 mg PO BID [facility] Last Admin: 12/14/21 07:26 Dose: 100 mg Documented by: Heparin Sodium (Porcine) (Heparin Sodium,Porcine 5,000 Unit/Ml Vial) 3,300 unit 40 unit/kg (3300 unit) IVPUSH PROTOCOL BOLUS PRN; Protocol PRN Reason: 40 unit/kg - Heparin Protocol Last Admin: 12/14/21 10:05 Dose: 3,300 unit Documented by: Heparin Sodium (Porcine) (Heparin Sodium,Porcine 5,000 Unit/Ml Vial) 6,500 unit 80 unit/kg (6500 unit) IVPUSH PROTOCOL BOLUS PRN; Protocol PRN Reason: 80 unit/kg - Heparin Protocol Heparin Sodium/Sodium Chloride () 25,000 unit in 250 mls @ 0 mls/hr IVCONT .Q0M [facility]; Protocol Last Titration: 12/14/21 11:22 Dose: 0 units/kg/hr, 0 mls/hr Documented by: Magnesium Hydroxide (Milk Of Magnesia 30 Ml Oral.Susp) 30 ml PO DAILY PRN PRN Reason: Constipation Melatonin (Melatonin 3 Mg Tablet) 6 mg PO BEDTIME PRN PRN Reason: Insomnia Metoprolol Tartrate (Metoprolol Tartrate 25 Mg Tablet) 25 mg PO Q6H [facility]; Protocol Last Admin: 12/14/21 10:14 Dose: Not Given Documented by: Sodium Chloride (0.9 % Sodium Chloride Flush 3 Ml Syringe) 3 ml IVFLUSH QSHIFT [facility] Last Admin: 12/14/21 07:26 Dose: 3 ml Documented by: Home Medications Medication Instructions Recorded Confirmed Last Taken Type aspirin 81 mg chewable tablet 81 mg PO DAILY 12/13/21 12/13/21 12/12/21 History atorvastatin 80 mg tablet 1 tab PO DAILY 12/13/21 12/13/21 12/12/21 History canagliflozin 100 mg tablet 1 tab PO DAILY 12/13/21 12/13/21 12/12/21 History (Invokana) clozapine 200 mg tablet 1 tab PO BEDTIME 12/13/21 12/13/21 12/12/21 History dulaglutide 0.75 mg/0.5 mL 0.5 ml SUBCUT WE 12/13/21 12/13/21 12/12/21 History subcutaneous pen injector (Trulicity) ferrous sulfate 325 mg (65 mg 325 mg PO DAILY 12/13/21 12/13/21 12/12/21 History iron) tablet insulin glargine 100 unit/mL (3 20 unit SUBCUT BID 12/13/21 12/13/21 12/12/21 History mL) subcutaneous pen (Lantus Solostar U-100 Insulin) lactulose 10 gram/15 mL oral 30 ml PO DAILY 12/13/21 12/13/21 12/12/21 History solution levothyroxine 75 mcg tablet 1 tab PO DAILY 12/13/21 12/13/21 12/12/21 History linagliptin 5 mg tablet (Tradjenta) 1 tab PO DAILY 12/13/21 12/13/21 12/12/21 History metformin 1,000 mg tablet 1 tab PO BID 12/13/21 12/13/21 12/12/21 History omega 6-nna-edw-fish oil 1,000 mg 1 cap PO BID 12/13/21 12/13/21 12/12/21 History (120 mg-180 mg) capsule (Fish Oil) pantoprazole 40 mg tablet,delayed 1 tab PO BID 12/13/21 12/13/21 12/12/21 History release Physical Exam Vital Signs: Vital Signs: Last Vital Signs Temp 97.9 F 12/13/21 22:27 Pulse 86 12/14/21 10:00 Resp 16 12/14/21 10:00 BP 115/76 12/14/21 10:00 Pulse Ox 100 12/14/21 10:00 BMI result Body Mass Index 27.2 GENERAL APPEARANCE: in no acute distress. NECK: no carotid bruit, no jugular venous distention. SKIN: no suspicious lesions, warm and dry. Three wounds on the forehead. HEART: no murmurs, regular rate and rhythm. LUNGS: clear to auscultation bilaterally. ABDOMEN: soft, nontender. EXTREMITIES: no edema. PERIPHERAL PULSES: equal. Objective Labs and Meds Result diagrams: 12/13/21 11:24 12/13/21 11:24 Lab results: Laboratory Results - last 24 hr 12/13/21 12/13/21 12/13/21 11:24 11:24 11:24 Immature Gran % (Auto) 0.4 Neut % (Auto) 75.8 H Lymph % (Auto) 11.7 L [place] % (Auto) 11.9 H Eos % (Auto) 0.1 Baso % (Auto) 0.1 Lymph # (Auto) 1.6 [place] # (Auto) 1.6 H Eos # (Auto) 0.0 Baso # (Auto) 0.0 Abs Immat Gran (auto) 0.06 H Absolute Neuts (auto) 10.5 H Absolute Nucleated RBC 0.000 Nucleated RBC % (auto) 0.0 Smear Tech's Comments VERIFIED aPTT Heparin Protocol Sodium 136 Potassium 4.1 Chloride 102 Carbon Dioxide 25 Anion Gap 13 BUN 13 Creatinine 0.93 Estim Creat Clear Calc 79.6 Estimated GFR > 60 POC Glucose Random Glucose 151 H Lactic Acid Lactic Acid F/U @ 2Hr Calcium 9.6 Magnesium 1.8 Total Bilirubin 0.9 Direct Bilirubin 0.4 AST 58 H ALT 25 Alkaline Phosphatase 115 Troponin I High Sens 466.2 H* B-Natriuretic Peptide 79 Total Protein 6.8 Albumin 4.0 TSH Urine Color Urine Appearance Urine pH Ur Specific [place] Urine Protein Urine Glucose (UA) Urine Ketones Urine Blood Urine Nitrite Ur Leukocyte Esterase Urine RBC Urine WBC Ur Squamous Epith Cells Urine Bacteria COVID-19 (NEEMA) COVID-19 Clin Com Influenza Type A (JORGE L) Influenza Type B (JORGE L) Influenza A & B Note 12/13/21 12/13/21 12/13/21 11:24 11:25 11:39 Immature Gran % (Auto) Neut % (Auto) Lymph % (Auto) [place] % (Auto) Eos % (Auto) Baso % (Auto) Lymph # (Auto) [place] # (Auto) Eos # (Auto) Baso # (Auto) Abs Immat Gran (auto) Absolute Neuts (auto) Absolute Nucleated RBC Nucleated RBC % (auto) Smear Tech's Comments aPTT Heparin Protocol Sodium Potassium Chloride Carbon Dioxide Anion Gap BUN Creatinine Estim Creat Clear Calc Estimated GFR POC Glucose Random Glucose Lactic Acid 2.4 H* Lactic Acid F/U @ 2Hr Calcium Magnesium Total Bilirubin Direct Bilirubin AST ALT Alkaline Phosphatase Troponin I High Sens B-Natriuretic Peptide Total Protein Albumin TSH 0.42 Urine Color Urine Appearance Urine pH Ur Specific [place] Urine Protein Urine Glucose (UA) Urine Ketones Urine Blood Urine Nitrite Ur Leukocyte Esterase Urine RBC Urine WBC Ur Squamous Epith Cells Urine Bacteria COVID-19 (NEEMA) Negative COVID-19 Clin Com See Note Influenza Type A (JORGE L) Influenza Type B (JORGE L) Influenza A & B Note 12/13/21 12/13/21 12/13/21 11:39 15:17 15:18 Immature Gran % (Auto) Neut % (Auto) Lymph % (Auto) [place] % (Auto) Eos % (Auto) Baso % (Auto) Lymph # (Auto) [place] # (Auto) Eos # (Auto) Baso # (Auto) Abs Immat Gran (auto) Absolute Neuts (auto) Absolute Nucleated RBC Nucleated RBC % (auto) Smear Tech's Comments aPTT Heparin Protocol Sodium Potassium Chloride Carbon Dioxide Anion Gap BUN Creatinine Estim Creat Clear Calc Estimated GFR POC Glucose Random Glucose Lactic Acid Lactic Acid F/U @ 2Hr 1.7 Calcium Magnesium Total Bilirubin Direct Bilirubin AST ALT Alkaline Phosphatase Troponin I High Sens 367.3 H* B-Natriuretic Peptide Total Protein Albumin TSH Urine Color Urine Appearance Urine pH Ur Specific [place] Urine Protein Urine Glucose (UA) Urine Ketones Urine Blood Urine Nitrite Ur Leukocyte Esterase Urine RBC Urine WBC Ur Squamous Epith Cells Urine Bacteria COVID-19 (NEEMA) COVID-19 Clin Com Influenza Type A (JORGE L) Negative Influenza Type B (JORGE L) Negative Influenza A & B Note See Note 12/13/21 12/13/21 12/13/21 17:01 17:09 21:12 Immature Gran % (Auto) Neut % (Auto) Lymph % (Auto) [place] % (Auto) Eos % (Auto) Baso % (Auto) Lymph # (Auto) [place] # (Auto) Eos # (Auto) Baso # (Auto) Abs Immat Gran (auto) Absolute Neuts (auto) Absolute Nucleated RBC Nucleated RBC % (auto) Smear Tech's Comments aPTT Heparin Protocol 72.9 Sodium Potassium Chloride Carbon Dioxide Anion Gap BUN Creatinine Estim Creat Clear Calc Estimated GFR POC Glucose 98 Random Glucose Lactic Acid Lactic Acid F/U @ 2Hr Calcium Magnesium Total Bilirubin Direct Bilirubin AST ALT Alkaline Phosphatase Troponin I High Sens B-Natriuretic Peptide Total Protein Albumin TSH Urine Color YELLOW Urine Appearance CLEAR Urine pH 5.5 Ur Specific [place] 1.010 Urine Protein NEG Urine Glucose (UA) >=1000 H Urine Ketones NEG Urine Blood TRACE Urine Nitrite NEG Ur Leukocyte Esterase NEG Urine RBC 5-9 H Urine WBC 0 Ur Squamous Epith Cells 1+ Urine Bacteria NONE COVID-19 (NEEMA) COVID-19 Clin Com Influenza Type A (JORGE L) Influenza Type B (JORGE L) Influenza A & B Note 12/14/21 12/14/21 03:43 09:28 Immature Gran % (Auto) Neut % (Auto) Lymph % (Auto) [place] % (Auto) Eos % (Auto) Baso % (Auto) Lymph # (Auto) [place] # (Auto) Eos # (Auto) Baso # (Auto) Abs Immat Gran (auto) Absolute Neuts (auto) Absolute Nucleated RBC Nucleated RBC % (auto) Smear Tech's Comments aPTT Heparin Protocol 80.4 H 51.1 L D Sodium Potassium Chloride Carbon Dioxide Anion Gap BUN Creatinine Estim Creat Clear Calc Estimated GFR POC Glucose Random Glucose Lactic Acid Lactic Acid F/U @ 2Hr Calcium Magnesium Total Bilirubin Direct Bilirubin AST ALT Alkaline Phosphatase Troponin I High Sens B-Natriuretic Peptide Total Protein Albumin TSH Urine Color Urine Appearance Urine pH Ur Specific [place] Urine Protein Urine Glucose (UA) Urine Ketones Urine Blood Urine Nitrite Ur Leukocyte Esterase Urine RBC Urine WBC Ur Squamous Epith Cells Urine Bacteria COVID-19 (NEEMA) COVID-19 Clin Com Influenza Type A (JORGE L) Influenza Type B (JORGE L) Influenza A & B Note Imaging Radiologist's impression: Impressions Cervical Spine CT 12/13/21 12:35 IMPRESSION: Degenerative changes. No fracture or dislocation seen. Atelectasis or consolidation in the posterior right upper lobe. Fleischner guidelines were followed. Head CT 12/13/21 12:35 IMPRESSION: No acute findings. Old left occipital lobe infarct. Low-attenuation seen at the base of both frontal lobes questionable for changes related to previous trauma, old infarcts or postprocedure changes. Chest X-Ray 12/13/21 14:40 IMPRESSION: No acute pulmonary disease compared to 11/12/2019. Assessment and Plan (1) Non-ST elevation [place] (NSTEMI): Status: Acute (2) Atrial fibrillation, new onset: Status: Acute Plan 61-year-old gentleman with significant psych issues as well as dementia and has background of bypass surgery who is here for new onset atrial fibrillation. Labs and imaging was reviewed. EKG was also reviewed. High sensitivity troponin level of 466 and 367. By telemetry he is back in sinus rhythm. We should document this with an EKG. Add metoprolol XL 25 mg once a day. Should be anticoagulated for atrial fibrillation as he has high stroke risk. Please stop the baby aspirin once Eliquis or Xarelto is added. Troponins are elevated due to AFib with RVR. Thank you for allowing me to participate in the care of your patient. Please feel free to contact me if you have any questions. Procedures Date of Service Date of Service: 12/14/21
[2021-12-14] MEDS: Apixaban 5 MG TABLET PO ×2 (12:34→21:24)
--- NOTE | 2021-12-14 15:39 | HO.PM.IMPN ---
Subjective Subjective Date of Service: 12/14/21 Interval History: f/u on new onset afib rith rvr interval history: rvr resolved, seem confused Review of Systems confused no palpitations Physical Exam Vital Signs: Vital Signs: Last Vital Signs Temp 97.6 F 12/14/21 12:48 Pulse 81 12/14/21 12:48 Resp 17 12/14/21 12:48 BP 122/82 12/14/21 12:48 Pulse Ox 100 12/14/21 12:48 BMI result Body Mass Index 27.2 Const: Other: General: AO X 1, no acute distress Resp: CTA bilateral CVS: S1,S2,RRR GI: +BS, NT, no distention Skin: No rash Neuro: motor grossly intact Psych: appropriate affect Objective Data Active Medications Acetaminophen (Acetaminophen 325 Mg Tablet) 650 mg PO Q6H PRN PRN Reason: Pain, Mild (Pain Scale 1-3) Apixaban (Apixaban 5 Mg Tablet) 5 mg PO BID [facility] Last Admin: 12/14/21 12:34 Dose: 5 mg Documented by: KAILEE Aspirin (Aspirin Enteric Coated 81 Mg Tablet.Dr) 81 mg PO DAILY [facility] Last Admin: 12/14/21 07:26 Dose: 81 mg Documented by: KAILEE Atorvastatin Calcium (Atorvastatin Calcium 40 Mg Tablet) 40 mg PO BEDTIME [facility] Last Admin: 12/13/21 21:21 Dose: 40 mg Documented by: TEDDY Docusate Sodium (Docusate Sodium 100 Mg Capsule) 100 mg PO BID [facility] Last Admin: 12/14/21 07:26 Dose: 100 mg Documented by: KAILEE Magnesium Hydroxide (Milk Of Magnesia 30 Ml Oral.Susp) 30 ml PO DAILY PRN PRN Reason: Constipation Melatonin (Melatonin 3 Mg Tablet) 6 mg PO BEDTIME PRN PRN Reason: Insomnia Metoprolol Tartrate (Metoprolol Tartrate 25 Mg Tablet) 25 mg PO Q6H [facility]; Protocol Last Admin: 12/14/21 10:14 Dose: Not Given Documented by: KAILEE Non-Admin Reason: Patient Refused Sodium Chloride (0.9 % Sodium Chloride Flush 3 Ml Syringe) 3 ml IVFLUSH QSHIFT [facility] Last Admin: 12/14/21 07:26 Dose: 3 ml Documented by: KAILEE Labs CBC & Chem 7: 12/13/21 11:24 12/13/21 11:24 Labs: Laboratory Results - last 24 hr 12/13/21 12/13/21 12/13/21 15:17 17:01 17:09 aPTT Heparin Protocol POC Glucose 98 Troponin I High Sens 367.3 H* Urine Color YELLOW Urine Appearance CLEAR Urine pH 5.5 Ur Specific [place] 1.010 Urine Protein NEG Urine Glucose (UA) >=1000 H Urine Ketones NEG Urine Blood TRACE Urine Nitrite NEG Ur Leukocyte Esterase NEG Urine RBC 5-9 H Urine WBC 0 Ur Squamous Epith Cells 1+ Urine Bacteria NONE 12/13/21 12/14/21 12/14/21 21:12 03:43 09:28 aPTT Heparin Protocol 72.9 80.4 H 51.1 L D POC Glucose Troponin I High Sens Urine Color Urine Appearance Urine pH Ur Specific [place] Urine Protein Urine Glucose (UA) Urine Ketones Urine Blood Urine Nitrite Ur Leukocyte Esterase Urine RBC Urine WBC Ur Squamous Epith Cells Urine Bacteria Microbiology Microbiology Results: Microbiology 12/13/21 12:03 Blood Culture - Preliminary Blood - Venous No growth after 24 hours. 12/13/21 11:24 Blood Culture - Preliminary Blood - Venous No growth after 24 hours. Assessment and Plan (1) Non-ST elevation [place] (NSTEMI): Status: Acute (2) Atrial fibrillation, new onset: Status: Acute Plan 61 yo male from [facility] with history of dementia, paranoid schizophrenia, COPD, DM2, presbyopia, dysphagia, dyskinesia, anemia, hypothyroidism, enia, CAD s/p CABG, hx TIA, HLD being admitted for new onset AFIB, and NSTEMMI and ? syncope #AFIB with RVR--improved with IV metoprolol, will add oral Metoprolol 25 q6, echo tomorrow, anticoagulation with heparin #NSTEMI--Medical management with Heparin, ASA, BB, statin and cardiology to assess #? Syncoe vs mechanical fall, school bus monitor for arrythmia #Leukocytosis--check UA, rule out UTI #Chronic medical and Psychiatric issues-- to address once med rec completed Inaptient d/t afib with RVR, rat controlled med being adjusted. Quality Stroke Does the patient have a stroke diagnosis?: No VTE Prior VTE?: No VTE Risk Level:: Medical - moderate - high VTE Device Contraindication: Treatment Not Indicated VTE Drug Contraindication: N/A - Med Ordered
[2021-12-14 16:29] LABS: PTT Heparin Drip 40.1 SEC (53-77.9)
[2021-12-14] MEDS: Aspirin 81 MG TAB.CHEW PO (18:28)
[2021-12-14] MEDS: Levothyroxine Sodium 75 MCG TABLET PO (18:28)
[2021-12-14] MEDS: Metoprolol Tartrate 25 MG TABLET PO (18:28)
[2021-12-14] MEDS: Lactulose 20 GM/30 ML SOLUTION PO (18:28)
[2021-12-14 19:35] LABS: Glucose, Whole Blood 128 mg/dL (60-115)
[2021-12-14] MEDS: cloZAPine 100 MG TABLET 200 MG PO (21:24)
[2021-12-14] MEDS: Atorvastatin Calcium 40 MG TABLET PO (21:24)
[2021-12-14] MEDS: metFORMIN HCl 1,000 MG TABLET 1000 MG PO (21:24)
[2021-12-14] MEDS: Insulin Glargine,Hum.rec.anlog 100 UNIT/ML 10 ML VIAL 20 UNIT SUBCUT (21:24)
[2021-12-14] MEDS: Omeprazole 20 MG CAPSULE.DR PO (21:25)
[2021-12-15 03:14] VITALS: BP 100/65; PULSE 76; RESP 20; TEMP 36.4; O2SAT 97
[2021-12-15] MEDS: Levothyroxine Sodium 75 MCG TABLET PO (04:38)
[2021-12-15] MEDS: Metoprolol Tartrate 25 MG TABLET PO (04:38)
[2021-12-15 07:46] VITALS: BP 80/51; PULSE 71; RESP 17; TEMP 36.3; O2SAT 98
[2021-12-15 08:11] LABS: Glucose, Whole Blood 98 mg/dL (60-115)
[2021-12-15] MEDS: metFORMIN HCl 1,000 MG TABLET 1000 MG PO ×2 (09:42→20:48)
[2021-12-15] MEDS: 0.9 % Sodium Chloride Flush 3 ML SYRINGE IVFLUSH ×3 (09:42→20:48)
[2021-12-15] MEDS: Aspirin Enteric Coated 81 MG TABLET.DR PO (09:42)
[2021-12-15] MEDS: Insulin Glargine,Hum.rec.anlog 100 UNIT/ML 10 ML VIAL 20 UNIT SUBCUT ×2 (09:42→20:48)
[2021-12-15] MEDS: Lactulose 20 GM/30 ML SOLUTION PO (09:42)
[2021-12-15] MEDS: Ferrous Sulfate 324 MG TABLET.DR PO (09:43)
[2021-12-15] MEDS: Aspirin 81 MG TAB.CHEW PO (09:43)
[2021-12-15] MEDS: Docusate Sodium 100 MG CAPSULE PO ×2 (09:43→20:48)
[2021-12-15] MEDS: Atorvastatin Calcium 80 MG TABLET PO (09:43)
[2021-12-15] MEDS: Apixaban 5 MG TABLET PO ×2 (09:43→20:48)
[2021-12-15] MEDS: Omeprazole 20 MG CAPSULE.DR PO ×2 (09:43→20:48)
[2021-12-15] MEDS: 0.9 % Sodium Chloride 1,000 ML 999 ML IVCONT (09:57)
--- NOTE | 2021-12-15 10:48 | HO.PM.IMPN ---
Subjective Subjective Date of Service: 12/15/21 Interval History: f/u on new onset afib rith rvr interval history: rvr resolved, drowsy this morning with low BP and being given fluid bolus Review of Systems lethargic, no sob, no palipation Physical Exam Vital Signs: Vital Signs: Last Vital Signs Temp 97.4 F 12/15/21 07:46 Pulse 71 12/15/21 07:46 Resp 17 12/15/21 07:46 BP 80/51 L 12/15/21 07:46 Pulse Ox 98 12/15/21 07:46 BMI result Body Mass Index 27.2 Const: Other: General: AO X 1, no acute distress Resp: CTA bilateral CVS: S1,S2,RRR GI: +BS, NT, no distention Skin: No rash Neuro: motor grossly intact Psych: appropriate affect Objective Data Active Medications Acetaminophen (Acetaminophen 325 Mg Tablet) 650 mg PO Q6H PRN PRN Reason: Pain, Mild (Pain Scale 1-3) Apixaban (Apixaban 5 Mg Tablet) 5 mg PO BID [facility] Last Admin: 12/15/21 09:43 Dose: 5 mg Documented by: ADELA Aspirin (Aspirin Enteric Coated 81 Mg Tablet.) 81 mg PO DAILY [facility] Last Admin: 12/15/21 09:42 Dose: 81 mg Documented by: ADELA Atorvastatin Calcium (Atorvastatin Calcium 40 Mg Tablet) 40 mg PO BEDTIME [facility] Last Admin: 12/14/21 21:24 Dose: 40 mg Documented by: VANESSA Atorvastatin Calcium (Atorvastatin Calcium 80 Mg Tablet) 80 mg PO DAILY [facility] Last Admin: 12/15/21 09:43 Dose: 80 mg Documented by: ADELA Clozapine (Clozapine 100 Mg Tablet) 200 mg PO BEDTIME [facility] Last Admin: 12/14/21 21:24 Dose: 200 mg Documented by: VANESSA Docusate Sodium (Docusate Sodium 100 Mg Capsule) 100 mg PO BID [facility] Last Admin: 12/15/21 09:43 Dose: 100 mg Documented by: ADELA Ferrous Sulfate (Ferrous Sulfate 324 Mg Tablet.) 324 mg PO DAILY [facility] Last Admin: 12/15/21 09:43 Dose: 324 mg Documented by: ADELA Sodium Chloride (Ns) 1,000 mls @ 999 mls/hr IVCONT .Q1H1M [facility] Stop: 12/15/21 11:00 Last Admin: 12/15/21 09:57 Dose: 999 mls/hr Documented by: ADELA Insulin Glargine (Insulin Glargine,Hum.Rec.Anlog 100 Unit/Ml 10 Ml Vial) 20 unit SUBCUT BID [facility] Last Admin: 12/15/21 09:42 Dose: 20 unit Documented by: ADELA Lactulose (Lactulose 20 Gm/30 Ml Solution) 20 gm PO DAILY [facility] Last Admin: 12/15/21 09:42 Dose: 20 gm Documented by: ADELA Levothyroxine Sodium (Levothyroxine Sodium 75 Mcg Tablet) 75 mcg PO DAILY@0600 [facility] Last Admin: 12/15/21 04:38 Dose: 75 mcg Documented by: ABEL Magnesium Hydroxide (Milk Of Magnesia 30 Ml Oral.Susp) 30 ml PO DAILY PRN PRN Reason: Constipation Melatonin (Melatonin 3 Mg Tablet) 6 mg PO BEDTIME PRN PRN Reason: Insomnia Metformin HCl (Metformin Hcl 1,000 Mg Tablet) 1,000 mg PO BID [facility] Last Admin: 12/15/21 09:42 Dose: 1,000 mg Documented by: ADELA Metoprolol Tartrate (Metoprolol Tartrate 25 Mg Tablet) 25 mg PO BID [facility]; Protocol Nicotine Polacrilex (Nicotine Polacrilex 2 Mg Gum) 2 mg BUCCAL Q2H PRN PRN Reason: Nicotine Cravings Omeprazole (Omeprazole 20 Mg Capsule.Dr) 20 mg PO BID [facility] Last Admin: 12/15/21 09:43 Dose: 20 mg Documented by: ADELA Sodium Chloride (0.9 % Sodium Chloride Flush 3 Ml Syringe) 3 ml IVFLUSH QSHIFT [facility] Last Admin: 12/15/21 09:42 Dose: 3 ml Documented by: ADELA Labs CBC & Chem 7: 12/13/21 11:24 12/13/21 11:24 Labs: Laboratory Results - last 24 hr 12/14/21 12/14/21 12/15/21 16:12 19:32 07:50 aPTT Heparin Protocol 40.1 L D POC Glucose 128 H 98 Microbiology Microbiology Results: Microbiology 12/13/21 12:03 Blood Culture - Preliminary Blood - Venous No growth after 24 hours. 12/13/21 11:24 Blood Culture - Preliminary Blood - Venous No growth after 24 hours. Assessment and Plan (1) Non-ST elevation CT (NSTEMI): Status: Acute (2) Atrial fibrillation, new onset: Status: Acute (3) Hypotension: Status: Acute Plan 61 yo male from [facility] with history of dementia, paranoid schizophrenia, COPD, DM2, presbyopia, dysphagia, dyskinesia, anemia, hypothyroidism, enia, CAD s/p CABG, hx TIA, HLD being admitted for new onset AFIB, and NSTEMMI and ? syncope #AFIB with RVR- in sinus rythm, continue oral metoprolol if BP allows, eliquis for anticoagulation #Elevated troponin-- related to afib, no further testing per cardiology #? Syncoe vs mechanical fall, ekg monitor for arrythmia #Leukocytosis--check UA, rule out UTI--repeat CBC, #HypOtension--not due to sepsis, proably from lack intake, fluid bolus and reassess #Chronic medical and Psychiatric issues-- to address once med rec completed Inaptient d/t afib with RVR, rat controlled med being adjusted. Now hypotension that need moniting Quality Stroke Does the patient have a stroke diagnosis?: No VTE Prior VTE?: No VTE Risk Level:: Medical - moderate - high VTE Device Contraindication: Treatment Not Indicated VTE Drug Contraindication: N/A - Med Ordered
[2021-12-15 11:17] LABS: Hematocrit 40.6 % (42.0-52.0); Hemoglobin 13.1 g/dl (14.0-18.0); Mean Corpuscular HGB Conc 32.3 g/dl (31.0-36.0); Mean Corpuscular Hemoglobin 27.6 pg (27.0-33.0); Mean Corpuscular Volume 85.7 fL (80.0-98.0); Mean Platelet Volume 10.3 fL (9.4-12.4); Platelet Count 191 X10*3/uL (160-400); Red Blood Count 4.74 X10*6/uL (4.60-5.80); White Blood Count 8.6 X10*3/uL (4.8-10.8)
[2021-12-15 11:24] VITALS: BP 92/61; PULSE 78; RESP 15; TEMP 36.4; O2SAT 99
[2021-12-15 11:33] LABS: Glucose, Whole Blood 186 mg/dL (60-115)
[2021-12-15 11:37] LABS: Anion Gap 12 (12-20); Blood Urea Nitrogen 15 mg/dL (9-16); Calcium 8.9 mg/dL (8.4-10.2); Carbon Dioxide 25 mmol/L (22-29); Chloride 107 mmol/L (96-108); Creatinine Clr Calc Pharmacy 86.1; Estimated Glomerular Filt Rate > 60; Glucose Random 234 mg/dL (60-115); Potassium 3.8 mmol/L (3.3-5.1); Sodium 140 mmol/L (135-145)
[2021-12-15 15:28] VITALS: BP 94/55; PULSE 82; RESP 17; TEMP 36.6; O2SAT 97
[2021-12-15 16:51] LABS: Glucose, Whole Blood 104 mg/dL (60-115)
[2021-12-15 19:43] VITALS: BP 86/65; PULSE 81; RESP 17; TEMP 37; O2SAT 98
[2021-12-15] MEDS: cloZAPine 100 MG TABLET 200 MG PO (20:48)
[2021-12-15] MEDS: Atorvastatin Calcium 40 MG TABLET PO (20:48)
[2021-12-15 21:22] LABS: Glucose, Whole Blood 168 mg/dL (60-115)
[2021-12-16] VITALS: BP 99/64; PULSE 82; RESP 20; TEMP 36.5; O2SAT 96
[2021-12-16 04:00] VITALS: BP 95/60; PULSE 79; RESP 20; TEMP 36.6; O2SAT 97
[2021-12-16] MEDS: Levothyroxine Sodium 75 MCG TABLET PO (05:38)
[2021-12-16 07:46] VITALS: BP 99/66; PULSE 84; RESP 17; TEMP 36.4; O2SAT 98
[2021-12-16 07:58] LABS: Glucose, Whole Blood 100 mg/dL (60-115)
--- NOTE | 2021-12-16 09:54 | PM.DS ---
DS: Providers Provider Date of Service: 12/16/21 Date of admission: 12/13/21 15:17 Primary care physician: Lamonte Jenkins DO Consults: 12/13/21 13:32 Consult to Cardiology Stat Consulting Provider: Jeb Silveira Reason for consultation: NSTEMI, new onset afib Has provider been notified: Yes DS: Diagnosis Discharge Diagnosis (1) Non-ST elevation PA (NSTEMI): Status: Acute (2) Atrial fibrillation, new onset: Status: Acute (3) Hypotension: Status: Acute DS: Summary Hospital Course Hospital Course: Chief Complaint: Fall, new Afib 61 yo male from [facility]? with history of dementia, paranoid schizophrenia, COPD, DM2, presbyopia, dysphagia, dyskinesia, anemia, hypothyroidism, enia, CAD s/p CABG, hx TIA, HLD brought? to ED to be evaluated for an? night with unclear circumstance, but believed that he fell forward as he has injury to the forhead while in a wheelchair, although the patient states that he fell out of a bed but he is a very unreliable historian as he is not able to elaborate on any detail.? He is found to be in AFIB with RVR given IV metoprolol 5 mg coverted to sinus but then went back into it. ? His initial troponin is 466, he denies chest pain , ECG show no obvious ischemic changes. Hospital course: Patient presented with fall that was mechanical in nature and was found to be in AFIB with RVR and appear to be assymptomatic with this. Troponin I level was elevated and initially raised concern of NSTEMI but went down quickly 466 to 367 and never had chest pain or shortness of breath.. Initially treated with heparin, BB, ASA, Statin for presumed PA but cardiology evaluated and thought rise in troponin was due to AFIB with RVR. AFIB was treated with IV Metoprolol and converted to sinus rythm and cardiology advised Metoprolol 25 bid and elquis for anticoagulation.. He need close supervision to prevent fall and bleeding complications.. PCP aware and he will be on 1: 1 and it is believed that the fall was mechanical in nature and if becomes frequent anticoagulation should discontinued. Had an episode of hpotension on 12/15 given IV and there is no evidence of sepis. BP is presently 99/66, WBC normal, no fever. Negative blood cultures over 48 hours. Time Spent with Patient Time attestation: Total time spent providing and/or coordinating discharge services: Discharge coordination time: Greater than 30 minutes Quality: Safe Use of Opioids Does Pt have an Active Cancer Diagnosis on the Problem List?: No Quality: Stroke Does the patient have a stroke diagnosis?: No Physical Exam Vital Signs: Vital Signs: Last Vital Signs Temp 97.6 F 12/16/21 07:46 Pulse 84 12/16/21 07:46 Resp 17 12/16/21 07:46 BP 99/66 12/16/21 07:46 Pulse Ox 98 12/16/21 07:46 BMI result Body Mass Index 27.2 General: AO X 2, no acute distress Resp: CTA bilateral CVS: S1,S2,RRR GI: +BS, NT, no distention Skin: No rash--bruses on forhead Neuro: motor grossly intact Psych: appropriate affect DS: Data Data Completed and Pending Labs on day of discharge: Laboratory Results - last 24 hr 12/15/21 12/15/21 12/15/21 10:58 10:58 11:26 WBC 8.6 RBC 4.74 Hgb 13.1 L Hct 40.6 L MCV 85.7 MCH 27.6 MCHC 32.3 RDW 15.0 Plt Count 191 MPV 10.3 Absolute Nucleated RBC 0.000 Nucleated RBC % (auto) 0.0 Sodium 140 Potassium 3.8 Chloride 107 Carbon Dioxide 25 Anion Gap 12 BUN 15 Creatinine 0.86 Estim Creat Clear Calc 86.1 Estimated GFR > 60 POC Glucose 186 H Random Glucose 234 H D Calcium 8.9 D 12/15/21 12/15/21 12/16/21 16:34 21:18 07:48 WBC RBC Hgb Hct MCV MCH MCHC RDW Plt Count MPV Absolute Nucleated RBC Nucleated RBC % (auto) Sodium Potassium Chloride Carbon Dioxide Anion Gap BUN Creatinine Estim Creat Clear Calc Estimated GFR POC Glucose 104 168 H 100 Random Glucose Calcium Preliminary micro results at discharge 12/13/21 12:03 Blood Culture - Preliminary Blood - Venous No growth after 48 hours. 12/13/21 11:24 Blood Culture - Preliminary Blood - Venous No growth after 48 hours. Discharge Plan Discharge Anticipated Discharge Date/Time: 12/16/21 09:40 Patient Disposition: Xfer SNF Discharge Diagnosis: AFIB with RVE, Referrals: Lamonte Jenkins DO [Primary Care Provider] - 1 Week Discharge Medications: New Eliquis 5 mg Tablet 5 mg PO BID Qty: 60 0RF metoprolol tartrate 25 mg Tablet 25 mg PO BID Qty: 60 0RF Protocol: Hold for SBP/HR < HOLD for SBP < : 90 HOLD for HR < : 60 Continued atorvastatin 80 mg tablet 1 tab PO DAILY 0RF levothyroxine 75 mcg tablet 1 tab PO DAILY 0RF pantoprazole 40 mg tablet,delayed release (DR/EC) 1 tab PO BID 0RF ferrous sulfate 325 mg (65 mg iron) Tablet 325 mg PO DAILY 0RF metformin 1,000 mg tablet 1 tab PO BID 0RF aspirin 81 mg Tablet,Chewable 81 mg PO DAILY 0RF lactulose 10 gram/15 mL solution 30 ml PO DAILY 0RF clozapine 200 mg tablet 1 tab PO BEDTIME 0RF Lantus Solostar U-100 Insulin 100 unit/mL (3 mL) insulin pen 20 unit subcut BID 0RF omega 3-bxi-nde-fish oil [Fish Oil] 1,000 mg (120 mg-180 mg) Capsule 1 cap PO BID 0RF Tradjenta 5 mg tablet 1 tab PO DAILY 0RF Invokana 100 mg tablet 1 tab PO DAILY 0RF Trulicity 0.75 mg/0.5 mL pen injector 0.5 ml subcut WE 0RF Discharge Orders: Discharge Order (Routine); Ordered 12/16/21 Ordered By: Yandel Andersen Diet: advance to usual diet Activity on Discharge: As tolerated Stand Alone Forms: Patient Portal Discharge page Care Plan Goals: Control of AFIB and stroke prevention with Eliquis Health Concerns: AFIB, fall Plan of Treatment: Take Metoprolol for AFIB and eliquis to prevent stroke Assessment: above
[2021-12-16] MEDS: Aspirin Enteric Coated 81 MG TABLET.DR PO (10:03)
[2021-12-16] MEDS: metFORMIN HCl 1,000 MG TABLET 1000 MG PO (10:03)
[2021-12-16] MEDS: Ferrous Sulfate 324 MG TABLET.DR PO (10:03)
[2021-12-16] MEDS: Docusate Sodium 100 MG CAPSULE PO (10:03)
[2021-12-16] MEDS: Metoprolol Tartrate 25 MG TABLET PO (10:03)
[2021-12-16] MEDS: Omeprazole 20 MG CAPSULE.DR PO (10:03)
[2021-12-16] MEDS: Atorvastatin Calcium 80 MG TABLET PO (10:04)
[2021-12-16] MEDS: Insulin Glargine,Hum.rec.anlog 100 UNIT/ML 10 ML VIAL 20 UNIT SUBCUT (10:04)
[2021-12-16] MEDS: Apixaban 5 MG TABLET PO (10:04)
[2021-12-16] MEDS: 0.9 % Sodium Chloride Flush 3 ML SYRINGE IVFLUSH (10:04)
[2021-12-16] MEDS: Lactulose 20 GM/30 ML SOLUTION PO (10:04)
--- NOTE | 2021-12-16 10:10 | MHC.CM.PN ---
Addendum entered by Ashia Lozano 12/16/21 10:42: [facility] HAS INDICATED THEY ARE ABLE TO TAKE PT BACK AT ANY TIME. REFERRAL SENT TO [facility] REQUESTING TRANSPORT AT 1130 OR NEXT AVAILABLE Original Note: CM INFORMED PT IS READY TO DC. UPDATES AND INTENT TO DC SENT TO [facility] [place]. AWAITING RESPONSE
== END 2021-12-16 12:39 | disposition skilled nursing facility (03) | DRG 309 ==
LOC: HO.ED 13:40 → HO.EDOVER 15:25 → HO.IMC 12-14 14:39
PROVIDERS: Hospitalist; Physician Assistant; Admitting Provider Internal Medicine; Emergency Provider Emergency Medicine; PCP Hospitalist; Visit Provider Internal Medicine
DX: I48.91 Unspecified atrial fibrillation (principal); F20.0 Paranoid schizophrenia; F03.90 Unspecified dementia, unspecified severity, without behavioral disturbance, psychotic disturbance, mood disturbance, and anxiety; I25.10 Atherosclerotic heart disease of native coronary artery without angina pectoris; M20.029 Boutonniere deformity of unspecified finger(s); E03.9 Hypothyroidism, unspecified; Z86.73 Personal history of transient ischemic attack (TIA), and cerebral infarction without residual deficits; Z95.1 Presence of aortocoronary bypass graft; E78.5 Hyperlipidemia, unspecified; D72.829 Elevated white blood cell count, unspecified; I95.9 Hypotension, unspecified; F17.210 Nicotine dependence, cigarettes, uncomplicated; Z71.6 Tobacco abuse counseling; Z20.822 Contact with and (suspected) exposure to COVID-19; Z79.4 Long term (current) use of insulin; Z79.01 Long term (current) use of anticoagulants; Z79.82 Long term (current) use of aspirin; Z79.84 Long term (current) use of oral hypoglycemic drugs; Z79.890 Hormone replacement therapy; Z79.899 Other long term (current) drug therapy
CPT/HCPCS: 36415; 70450; 71045; 72125; 80048; 80076; 81001; 82140; 82947; 83605; 83735; 83880; 84443; 84484; 85025; 85027; 85610; 85730; 87040; 87502; 87635; 93005; 96361; 96365; 96375; 99285; 99291

== ENCOUNTER 2022-12-27 04:04 | Inpatient (IN) | payer MEDICARE, MEDICAID, SELFPAY ==
--- NOTE | ~2022-12-27 | CT_ITS ---
EXAMINATION: NONCONTRAST HEAD CT NONCONTRAST MAXILLOFACIAL CT NONCONTRAST CERVICAL SPINE CT INDICATION INFORMATION: Fall COMPARISON: 12/13/2021 TECHNIQUE: Separate noncontrast CT examinations of the head, maxillofacial bones, and cervical spine were performed. Coronal and sagittal images were created for each examination at the technologist workstation. This CT examination was performed using dose optimization techniques as appropriate, variously including the following: *Automated exposure control *Adjustment of mA and/or kV according to patient size (this includes techniques or standardized protocols for targeted exams where dose is matched to indication/reason for exam; i.e. extremities or head) *Use of iterative reconstruction technique DLP: 1199 mGy-cm FINDINGS: Head: There is no evidence of acute intracranial hemorrhage or territorial infarction. No abnormal mass effect or midline shift is seen. Multiple chronic infarcts involving both frontal lobes in the left occipital lobe. [place] to white matter differentiation is otherwise well preserved. No extra-axial fluid collections are identified. No hydrocephalus. Proportional prominence of the ventricles and sulcal spaces is consistent with mild volume loss. Patchy periventricular and deep white matter hypoattenuation is consistent with mild small vessel ischemic changes. No acute soft tissue abnormality. No calvarial fracture. The mastoid air cells are well aerated. Maxillofacial: Soft tissue swelling over the nose. There is a significantly comminuted nasal bone fracture. Multiple bony fragments are present with impaction as well. There is a buckling fracture of the nasal septum. The pterygoid plates are intact. The lamina papyracea are intact. Zygomatic arches are intact. The orbital rims are intact. The mandible is intact. Mild mucoperiosteal thickening throughout the paranasal sinuses. Partial left infundibulum occlusion. The meati are patent. The mandibular heads are well-seated in the condylar fossa. The orbits demonstrate a normal appearance bilaterally. The globes are intact, and there are no suspicious findings to suggest retrobulbar hemorrhage. There is soft tissue swelling the right periorbital region. Cervical spine: There is anatomic alignment of the vertebral bodies and posterior elements. The atlantoaxial and atlantooccipital articulations are intact. Vertebral body heights are maintained. There is multilevel intervertebral disc space narrowing with endplate osteophyte formation and facet arthropathy. Prominent anterior bridging of osteophytes. Right facet bony fusion at C2-C3. No evidence of acute fracture. No prevertebral soft tissue swelling. Mild centrilobular emphysema at the lung apices. The thyroid gland is unremarkable. CT/CT cervical spine wo IV con IMPRESSION: 1. No acute intracranial finding. 2. Comminuted nasal bone fracture. Buckling fracture of the nasal septum. 3. No acute fracture or malalignment of the cervical spine. Moderate degenerative change.
[2022-12-27 04:17] VITALS: BP 106/68; PULSE 74; RESP 12; TEMP 36.7; O2SAT 97; BMI 27.4
--- NOTE | 2022-12-27 04:17 | ED_ITS ---
HPI - Fall General Chief Complaint: Fall Stated Complaint: Fall Time Seen by Provider: 12/27/22 04:06 Source: EMS Mode of arrival: EMS Limitations: other History of Present Illness HPI Narrative: Patient comes to the emergency room from [facility]. Ring to EMS, the Patient is known to have night terrors, patient got out of bed abruptly, started running, ran into a door. Then, patient continue running, tripped , face planted, landed on the ground. Patient is on blood thinners, Eliquis for AFib. Of note, patient has ecchymosis on the right side of the eyelid, staff reported to EMS that the patient had a ptosis procedure done about a week ago. Related Data Home Medications Medication Instructions Recorded Confirmed aspirin 81 mg chewable tablet 81 mg PO DAILY 12/13/21 12/13/21 atorvastatin 80 mg tablet 1 tab PO DAILY 12/13/21 12/13/21 canagliflozin 100 mg tablet 1 tab PO DAILY 12/13/21 12/13/21 (Invokana) clozapine 200 mg tablet 1 tab PO BEDTIME 12/13/21 12/13/21 dulaglutide 0.75 mg/0.5 mL 0.5 ml subcut WE 12/13/21 12/13/21 subcutaneous pen injector (Trulicity) ferrous sulfate 325 mg (65 mg 325 mg PO DAILY 12/13/21 12/13/21 iron) tablet insulin glargine 100 unit/mL (3 20 unit subcut BID 12/13/21 12/13/21 mL) subcutaneous pen (Lantus Solostar U-100 Insulin) lactulose 10 gram/15 mL oral 30 ml PO DAILY 12/13/21 12/13/21 solution levothyroxine 75 mcg tablet 1 tab PO DAILY 12/13/21 12/13/21 linagliptin 5 mg tablet (Tradjenta) 1 tab PO DAILY 12/13/21 12/13/21 metformin 1,000 mg tablet 1 tab PO BID 12/13/21 12/13/21 omega 7-nkl-boc-fish oil 1,000 mg 1 cap PO BID 12/13/21 12/13/21 (120 mg-180 mg) capsule (Fish Oil) pantoprazole 40 mg tablet,delayed 1 tab PO BID 12/13/21 12/13/21 release Previous Rx's Medication Instructions Recorded apixaban 5 mg tablet (Eliquis) 5 mg PO BID #60 tabs 12/16/21 metoprolol tartrate 25 mg tablet 25 mg PO BID #60 tabs 12/16/21 Allergies Allergy/AdvReac Type Severity Reaction Status Date / Time No Known Allergies Allergy Unverified 04/05/20 19:36 [No Known Allergies*] Review of Systems Review of Systems: Yes Unobtainable due to mental condition PMFSH Past Medical History Medical History Altered mental status Amblyopia, left eye Anemia Atherosclerotic heart disease of [place] coronary artery without angina pectoris Boutonniere deformity of finger Cognitive impairment COPD (chronic obstructive pulmonary disease) COVID-19 Dementia Drug induced subacute dyskinesia Dysphagia Encephalopathy Essential (primary) hypertension Exotropia, alternating, with A pattern Hyperlipidemia Hypermetropia of both eyes Hypothyroidism Palsy (spasm) of conjugate gaze Paranoid schizophrenia Personal history of transient ischemic attack (TIA), and cerebral infarction without residual deficits Ptosis of right eyelid Type 2 diabetes mellitus Surgical History Presence of aortocoronary bypass graft Social History Social History Household Members: Other Household Members Other:: [facility] Housing: [facility] Unable to assess alcohol history related to: Refusing to respond Patient Tobacco Use Status: Current everyday Tobacco user Tobacco use type: Cigarette Years Smoked: SURAJ Advance Directives: Yes Advance Directives on File: Yes Advance Directives Date on File: 12/14/21 service: No Current occupational status: disabled Physical Exam Vital Signs: Vital Signs: Last Vital Signs Temp 98.0 F 12/27/22 04:17 Pulse 77 12/27/22 05:48 Resp 18 12/27/22 05:48 BP 107/76 12/27/22 05:48 Pulse Ox 97 12/27/22 05:48 O2 Del Method Room Air 12/27/22 05:48 BMI result Body Mass Index 27.4 Const: Other: Appearance: Alert. No acute distress. Eyes: Pupils equal, round and reactive to light. Swollen right eyelid with ecchymosis, healing, no cellulitis, ptosis and mild swelling on the right eye from previous surgery ENT: Patient is bleeding profusely from the right [place], the nasal septum is deviated completely to the left side, there is a slow bleed from the left [place], obstructing the view, possibly developing an septal hematoma on the left? There is a laceration on the nasal bridge, likely an open fracture Neck: In C-spine precautions, no palpable step-offs, no C-spine tenderness CVS: Normal heart rate and rhythm. Pulses normal. Normal S1 and S2 Respiratory: No respiratory distress. Breath sounds normal. No Wheezing. No rales Abdomen: Soft and nontender. No rigidity. No distention. Skin: Skin warm and dry. Normal skin color. Normal skin turgor. Extremities: No lower extremity edema. No Lacerations. No Rash Neuro: Oriented X 3. No motor deficit. No sensory deficit. Moving all extremities. No slurred speech. CN 2 through 12 grossly intact Psych: calm, cooperative, normal affect Course Course Course Narrative: -Afrin was applied to both nostrils, the epistaxis stopped on the left nostril. However, there is perfuse bleeding on the right near. TXA was inserted with a gauze in the nostril. This was unsuccessful, patient continued bleeding profusely. Patient needed a rhino rocket. Rhino rocket of the right nostril. The bleeding, likely an anterior bleed. -the nasal septum is deviated almost completely to the left wall of the [place], questionably there is a septal hematoma on the left, scant bleeding on the left near after the above-mentioned treatment -patient has a laceration on the nose, patient has nasal fracture, we will treat as an exposed fracture. Patient getting IV fluids, cefepime 2 g, fentanyl for p ain control, blood pressure on the softer side, 107/76, heart rate 77 -patient's white blood cell count 13.7, likely reactive leukocytosis, H and H stable -I discussed the patient with Dr. Srinivasan from [facility] ED trauma, we are waiting for ENT to call back,. Likely patient will be transferred from ED to ED, 2nd call back pending -I was connected with [facility]illofacial [facility] Dr. Villagran, who recommended talking to ENT -I spoke to ENT doctor Audrey Carr, we discussed the patient, rec ommendations: Close nasal bridge laceration, send the patient on pain medications and Augmentin back to [facility], follow-up on Thursday, patient already has an appointment. -I discussed the patient with Dr. Jenkins, patient will likely need good pain control, patient has significant fractures and a nasal pack on top of it. We will admit the patient here for pain control, patient has an appointment on Thursday at [facility] with ENT -patient has 3 stitches in the nasal bridge, need to be removed between January 03 and January 06. -also, patient's heart rate anywhere between 110 and 130, patient in atrial fibrillation with RVR. Blood pressure still remains a bit soft, given IV push of digoxin 0.125 mg -patient being admitted by Dr. jenkins on the hospitalist team Medications Administered Discontinued Medications Generic Name Dose Route Start Last Admin Trade Name Richard PRN Reason Stop Dose Admin Fentanyl 50 mcg 12/27/22 05:57 12/27/22 06:15 Fentanyl Citrate/Pf 100 Mcg/2 Ml Vial IVPUSH 12/27/22 05:58 50 mcg ONCE ONE Administration Protocol Fentanyl 50 mcg 12/27/22 06:45 12/27/22 07:20 Fentanyl Citrate/Pf 100 Mcg/2 Ml Vial IVPUSH 12/27/22 06:46 Not Given ONCE ONE Protocol Tranexamic Acid 1,000 mg/ 60 mls @ 360 mls/hr 12/27/22 05:28 12/27/22 07:16 Sodium Chloride IV 12/27/22 05:37 Infused ONCE ONE Infusion Cefazolin Sodium/Dextrose 2 gm in 50 mls @ 100 mls/hr 12/27/22 05:56 12/27/22 07:15 Ancef IV 12/27/22 06:25 Infused ONCE ONE Infusion Oxymetazoline HCl 2 spray 12/27/22 04:17 12/27/22 04:29 Oxymetazoline Hcl 0.05 % Nasal 15 Ml [place] NOSTRIL-B 12/27/22 04:18 2 spray ONCE ONE Administration Procedures Laceration Laceration 1: Site: face Size (cm): 1 Description: linear Depth: simple, single layer Local Anesthetic: lidocaine 1% Amount of anesthesia used (mL): 2 Pre-repair: wound explored Skin layer closed with: nylon Size (cm): 5-0 Number of sutures: 3 Medical Decision Making Admission/Observation Consideration of admission/observation: Escalation of care including admission/observation considered Consult Healthcare Provider Management of the patient was discussed with: Hospitalist and [employer] Security Administrator Lab Data MDM Lab Attestation statement: I reviewed the patient's lab results. 12/27/22 06:03 12/27/22 06:03 Labs: Lab Results 12/27/22 12/27/22 12/27/22 Range/Units 06:03 06:03 06:03 WBC 13.7 H (4.8-10.8) X10*3/uL RBC 4.94 (4.60-5.80) X10*6/uL Hgb 14.0 (14.0-18.0) g/dl Hct 42.9 (42.0-52.0) % MCV 86.8 (80.0-98.0) fL MCH 28.3 (27.0-33.0) pg MCHC 32.6 (31.0-36.0) g/dl RDW 14.4 (11.0-16.0) % Plt Count 166 (160-400) X10*3/uL MPV 10.8 (9.4-12.4) fL Immature Gran % (Auto) 0.3 (0.0-0.4) % Neut % (Auto) 67.5 (45-73) % Lymph % (Auto) 22.2 (20-40) % [place] % (Auto) 8.5 (2-11) % Eos % (Auto) 1.1 (0-4) % Baso % (Auto) 0.4 (0-2) % Lymph # (Auto) 3.1 (1.2-4.9) X10*3/uL [place] # (Auto) 1.2 (0.1-1.2) X10*3/uL Eos # (Auto) 0.2 (0.0-0.4) X10*3/uL Baso # (Auto) 0.1 (0.0-0.2) X10*3/uL Abs Immat Gran (auto) 0.04 H (0.00-0.03) X10*3/uL Absolute Neuts (auto) 9.3 H (2.0-8.3) x10*3/uL Absolute Nucleated RBC 0.000 (0.0-0.012) X10*3/uL Nucleated RBC % (auto) 0.0 (0.0-0.2) /100WBC PT 14.6 H (10.0-13.1) SEC INR 1.3 H (0.9-1.1) APTT 39.4 H (26.0-36.4) SEC Sodium 142 (135-145) mmol/L Potassium 4.1 (3.3-5.1) mmol/L Chloride 105 (96-108) mmol/L Carbon Dioxide 27 (22-29) mmol/L Anion Gap 14 (12-20) BUN 15 (9-16) mg/dL Creatinine 0.93 (0.5-1.4) mg/dL Estim Creat Clear Calc 78.6 Estimated GFR > 60 Random Glucose 149 H (60-115) mg/dL Calcium 9.3 (8.4-10.2) mg/dL Radiology Impression Discussion of test interpretation with radiology: I have reviewed the radiologist's reading. Radiologist Impression: FINDINGS: Head: There is no evidence of acute intracranial hemorrhage or territorial infarction. No abnormal mass effect or midline shift is seen. Multiple chronic infarcts involving both frontal lobes in the left occipital lobe. [place] to white matter differentiation is otherwise well preserved. No extra-axial fluid collections are identified. No hydrocephalus. Proportional prominence of the ventricles and sulcal spaces is consistent with mild volume loss. Patchy periventricular and deep white matter hypoattenuation is consistent with mild small vessel ischemic changes. No acute soft tissue abnormality. No calvarial fracture. The mastoid air cells are well aerated. Maxillofacial: Soft tissue swelling over the nose. There is a significantly comminuted nasal bone fracture. Multiple bony fragments are present with impaction as well. There is a buckling fracture of the nasal septum. The pterygoid plates are intact. The lamina papyracea are intact. Zygomatic arches are intact. The orbital rims are intact. The mandible is intact. Mild mucoperiosteal thickening throughout the paranasal sinuses. Partial left infundibulum occlusion. The meati are patent. The mandibular heads are well-seated in the condylar fossa. The orbits demonstrate a normal appearance bilaterally. The globes are intact, and there are no suspicious findings to suggest retrobulbar hemorrhage. There is soft tissue swelling the right periorbital region. Cervical spine: There is anatomic alignment of the vertebral bodies and posterior elements. The atlantoaxial and atlantooccipital articulations are intact. Vertebral body heights are maintained. There is multilevel intervertebral disc space narrowing with endplate osteophyte formation and facet arthropathy. Prominent anterior bridging of osteophytes. Right facet bony fusion at C2-C3. No evidence of acute fracture. No prevertebral soft tissue swelling. Mild centrilobular emphysema at the lung apices. The thyroid gland is unremarkable. CT/CT head/brain wo IV con IMPRESSION: 1.? No acute intracranial finding. 2.? Comminuted nasal bone fracture. Buckling fracture of the nasal septum. 3.? No acute fracture or malalignment of the cervical spine. Moderate degenerative change. ? Critical Care Time Critical Care Time Critical Care Time: Yes Total Critical Care Time: 120 Attestation: I have personally provided critical care time. Time includes review of lab data, radiology results, discussion with consultants, and monitoring for potential decompensation. Intervention performed as documented. Discharge Plan Discharge Clinical Impression: Open displaced fracture of nasal bone, Fracture of nasal septum, Fall, Atrial fibrillation with RVR Patient Disposition: Admitted As Inpatient
[2022-12-27] MEDS: Oxymetazoline HCl 0.05 % Nasal 15 ML SPRAY 2 SPRAY NOSTRIL-B (04:29)
[2022-12-27] MEDS: Tranexamic Acid 1,000 MG in 0.9 % Sodium Chloride 50 ML 360 MG IV (05:43)
[2022-12-27 05:48] VITALS: BP 107/76; PULSE 77; RESP 18; O2SAT 97
[2022-12-27 06:08] LABS: MANUAL DIFF FLAG NO
[2022-12-27 06:12] LABS: Basophils Absolute Auto 0.1 X10*3/uL (0.0-0.2); Basophils Percent Auto 0.4 % (0-2); Eosinophils Absolute Auto 0.2 X10*3/uL (0.0-0.4); Eosinophils Percent Auto 1.1 % (0-4); Hematocrit 42.9 % (42.0-52.0); Imm Gran Abs Auto 0.04 X10*3/uL (0.00-0.03); Imm Gran Pct Auto 0.3 % (0.0-0.4); Lymphocytes Absolute Auto 3.1 X10*3/uL (1.2-4.9); Lymphocytes Percent Auto 22.2 % (20-40); Mean Corpuscular HGB Conc 32.6 g/dl (31.0-36.0); Mean Corpuscular Hemoglobin 28.3 pg (27.0-33.0); Mean Corpuscular Volume 86.8 fL (80.0-98.0); Mean Platelet Volume 10.8 fL (9.4-12.4); Monocytes Absolute Auto 1.2 X10*3/uL (0.1-1.2); Monocytes Percent Auto 8.5 % (2-11); Neutrophils Absolute Auto 9.3 x10*3/uL (2.0-8.3); Neutrophils Percent Auto 67.5 % (45-73); Platelet Count 166 X10*3/uL (160-400); Red Blood Count 4.94 X10*6/uL (4.60-5.80); Red Cell Distribution Width 14.4 % (11.0-16.0); White Blood Count 13.7 X10*3/uL (4.8-10.8)
[2022-12-27] MEDS: fentaNYL citrate/PF 100 MCG/2 ML VIAL 50 MCG IVPUSH (06:15)
[2022-12-27] MEDS: ceFAZolin Sodium/Dextrose,Iso 2 GM/50 ML PIGGYBACK IV ×3 (06:16→22:04)
[2022-12-27 06:19] LABS: INTERNATIONAL NORM RATIO 1.3 (0.9-1.1); Prothrombin Time 14.6 SEC (10.0-13.1)
--- NOTE | 2022-12-27 06:21 | PC.NURSE ---
pt assessed, right nare bleeding, Dr. Chaidez in to assess and placed a rhino rocket in right nare.
[2022-12-27 06:22] LABS: Partial Thromboplastin Time 39.4 SEC (26.0-36.4)
[2022-12-27 06:29] LABS: Anion Gap 14 (12-20); Blood Urea Nitrogen 15 mg/dL (9-16); Calcium 9.3 mg/dL (8.4-10.2); Carbon Dioxide 27 mmol/L (22-29); Chloride 105 mmol/L (96-108); Creatinine Clr Calc Pharmacy 78.6; Estimated Glomerular Filt Rate > 60; Glucose Random 149 mg/dL (60-115); Potassium 4.1 mmol/L (3.3-5.1); Sodium 142 mmol/L (135-145)
--- NOTE | 2022-12-27 06:43 | MHC.EDTECH ---
Call out to [facility]'s [place] line @ [phone] spoke with Dariana gave patient info,awaiting a call back. Md [place]
--- NOTE | 2022-12-27 07:08 | MHC.EDTECH ---
@[phone] [facility] called back. They requested to speak with Dr. Chaidez regarding the transfer. Dr. Chaidez takes the call right away. Dr. Chaidez notifies me they are reaching out to another specialist. We are now waiting for another call back.
--- NOTE | 2022-12-27 07:35 | ECG_ITS ---
Test Reason : FALL Blood Pressure : / mmHG Vent. Rate : 079 BPM Atrial Rate : 079 BPM P-R Int : 242 ms QRS Dur : 092 ms QT Int : 372 ms P-R-T Axes : 058 030 064 degrees QTc Int : 426 ms Sinus rhythm with 1st degree A-V block with occasional Premature ventricular complexes Nonspecific T wave abnormality Abnormal ECG When compared with ECG of 13-DEC-2021 14:28, Premature ventricular complexes are now Present Premature atrial complexes are no longer Present Nonspecific T wave abnormality now evident in Lateral leads Referred By: Lynn Chaidez Electronically Signed By:ANDREW DAVIS MD
--- NOTE | 2022-12-27 08:33 | PM.IMHP ---
History of Present Illness Date of Service: 12/27/22 Chief Complaint: nasal fracture 62-year-old male resident of [facility] with known night terrors awoke abruptly tripped and fell falling flat on his face. Facility denies loss of consciousness. Patient is on Eliquis for history of AFib. In the emergency room workup was consistent with a comminuted nasal fracture treated as exposed fracture. Call placed to [facility] trauma who referred to maxillofacial surgeon who recommended ENT. ENT said they will see patient Thursday as an outpatient. 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 Cognitive impairment COPD (chronic obstructive pulmonary disease) COVID-19 Dementia Drug induced subacute dyskinesia Dysphagia Encephalopathy Essential (primary) hypertension Exotropia, alternating, with A pattern Hyperlipidemia Hypermetropia of both eyes Hypothyroidism Palsy (spasm) of conjugate gaze Paranoid schizophrenia Personal history of transient ischemic attack (TIA), and cerebral infarction without residual deficits Ptosis of right eyelid Type 2 diabetes mellitus Surgical History Presence of aortocoronary bypass graft Social History Household Members: Other Household Members Other:: [facility] Housing: [facility] Unable to assess alcohol history related to: Refusing to respond Patient Tobacco Use Status: Current everyday Tobacco user Tobacco use type: Cigarette Years Smoked: SURAJ Advance Directives: Yes Advance Directives on File: Yes Advance Directives Date on File: 12/14/21 service: No Current occupational status: disabled Meds Allergies Allergy/AdvReac Type Severity Reaction Status Date / Time No Known Allergies Allergy Unverified 04/05/20 19:36 [No Known Allergies*] Active Medications: Current Medications Cefazolin Sodium/Dextrose (Ancef) 2 gm in 50 mls @ 100 mls/hr IV Q8H COLIN Morphine Sulfate (Morphine Sulfate 4 Mg/Ml Cartridge) 4 mg IVPUSH Q4H COLIN; Protocol Pharmacy Consult (Consult Rx Perform Med Rec) 1 each MISCELLANE ONCE PRN PRN Reason: Consult order Sodium Chloride (0.9 % Sodium Chloride Flush 3 Ml Syringe) 3 ml IVFLUSH QSHIFT [facility] Home Medications Medication Instructions Recorded Confirmed Last Taken Type aspirin 81 mg chewable tablet 81 mg PO DAILY 12/13/21 12/13/21 12/12/21 History atorvastatin 80 mg tablet 1 tab PO DAILY 12/13/21 12/13/21 12/12/21 History canagliflozin 100 mg tablet 1 tab PO DAILY 12/13/21 12/13/21 12/12/21 History (Invokana) clozapine 200 mg tablet 1 tab PO BEDTIME 12/13/21 12/13/21 12/12/21 History dulaglutide 0.75 mg/0.5 mL 0.5 ml subcut WE 12/13/21 12/13/21 12/12/21 History subcutaneous pen injector (Trulicity) ferrous sulfate 325 mg (65 mg 325 mg PO DAILY 12/13/21 12/13/21 12/12/21 History iron) tablet insulin glargine 100 unit/mL (3 20 unit subcut BID 12/13/21 12/13/21 12/12/21 History mL) subcutaneous pen (Lantus Solostar U-100 Insulin) lactulose 10 gram/15 mL oral 30 ml PO DAILY 12/13/21 12/13/21 12/12/21 History solution levothyroxine 75 mcg tablet 1 tab PO DAILY 12/13/21 12/13/21 12/12/21 History linagliptin 5 mg tablet (Tradjenta) 1 tab PO DAILY 12/13/21 12/13/21 12/12/21 History metformin 1,000 mg tablet 1 tab PO BID 12/13/21 12/13/21 12/12/21 History omega 8-iyr-tkb-fish oil 1,000 mg 1 cap PO BID 12/13/21 12/13/21 12/12/21 History (120 mg-180 mg) capsule (Fish Oil) pantoprazole 40 mg tablet,delayed 1 tab PO BID 12/13/21 12/13/21 12/12/21 History release Physical Exam Vital Signs and Narrative: Vital Signs: Last Vital Signs Temp 98.0 F 12/27/22 04:17 Pulse 77 12/27/22 05:48 Resp 18 12/27/22 05:48 BP 107/76 12/27/22 05:48 Pulse Ox 97 12/27/22 05:48 O2 Del Method Room Air 12/27/22 05:48 BMI result Body Mass Index 27.4 Const: Other: Awake alert uncomfortable appearing HEENT: Other: Laceration to bridge of nose sutured in ER. Rhino rocket in place Resp: Other: Clear to auscultation bilaterally no rales rhonchi or wheezes Cardio: Other: No S4; positive S1-S2; no S3 murmurs rubs or gallops GI: Other: Soft nontender nondistended normoactive bowel sounds Extrem: Other: No edema bilaterally Results Labs 12/27/22 06:03 12/27/22 06:03 Labs: Laboratory Results - last 24 hr 12/27/22 12/27/22 12/27/22 06:03 06:03 06:03 MCV 86.8 MCH 28.3 MCHC 32.6 RDW 14.4 Plt Count 166 MPV 10.8 Immature Gran % (Auto) 0.3 Neut % (Auto) 67.5 Lymph % (Auto) 22.2 [place] % (Auto) 8.5 Eos % (Auto) 1.1 Baso % (Auto) 0.4 Lymph # (Auto) 3.1 [place] # (Auto) 1.2 Eos # (Auto) 0.2 Baso # (Auto) 0.1 Abs Immat Gran (auto) 0.04 H Absolute Neuts (auto) 9.3 H Absolute Nucleated RBC 0.000 Nucleated RBC % (auto) 0.0 PT 14.6 H INR 1.3 H APTT 39.4 H Anion Gap 14 Estim Creat Clear Calc 78.6 Estimated GFR > 60 Random Glucose 149 H Calcium 9.3 Imaging Radiologist's Impressions: Impressions Cervical Spine CT 12/27/22 05:09 IMPRESSION: 1. No acute intracranial finding. 2. Comminuted nasal bone fracture. Buckling fracture of the nasal septum. 3. No acute fracture or malalignment of the cervical spine. Moderate degenerative change. Face CT 12/27/22 05:09 IMPRESSION: 1. No acute intracranial finding. 2. Comminuted nasal bone fracture. Buckling fracture of the nasal septum. 3. No acute fracture or malalignment of the cervical spine. Moderate degenerative change. Head CT 12/27/22 05:09 IMPRESSION: 1. No acute intracranial finding. 2. Comminuted nasal bone fracture. Buckling fracture of the nasal septum. 3. No acute fracture or malalignment of the cervical spine. Moderate degenerative change. Assessment and Plan (1) Open displaced fracture of nasal bone: Status: Acute (2) Atrial fibrillation with RVR: Status: Acute (3) Paranoid schizophrenia: Status: Acute (4) Essential (primary) hypertension: Status: Acute Plan 62-year-old male resident of [facility] with history of night terrors awoke suddenly tripped and fell directly on face. ER workup consistent with openly displaced fracture of the nasal bone. In ER, developed a rapid ventricular response rate secondary to AFib 1. Open displaced fracture of nasal bone -will cover with cefazolin 2 g q.8 hours given rhino rocket -pain control with morphine; titrate as indicated -has appointment with ENT at [facility] 12/29/2022... Will arrange through [facility] 2. Atrial fibrillation with rapid ventricular response -given dose of digoxin in ER. .. Follow response -treat rate as indicated -telemetry -hold Eliquis in light of displaced fracture of nasal bone 3. Paranoid schizophrenia -has been stable on closet oral at [facility] -behavior should be stable off clozaril for 48 hours -treat as indicated 4. Hypertension -acceptable control off therapies -add back as clinically appropriate Full code Sequentials Patient will require 2 midnights inpatient stay for pain management of open displaced fracture of nasal bone and to monitor for development of septal hematoma. This cannot be achieved a lesser acute setting Time Spent With Patient Time: Total time managing care of this patient today ____ minutes. Quality Stroke Does the patient have a stroke diagnosis?: No VTE Prior VTE?: No VTE Risk Level:: Medical - moderate - high VTE Device Contraindication: N/A - Device Ordered VTE Drug Contraindication: Treatment Not Indicated
--- NOTE | 2022-12-27 08:43 | PC.NURSE ---
assumed care of this pt at 0700. pt a&o, pleasant, calm, and cooperative. pt denied additional pain meds due to previous pain relief and documented per mar. rating 2/10 pain. pt given 3 stitches to bridge of nose by Dr. Chaidez, tolerated well. Admitted for observation with Dr. Jenkins to whom the pt sees at [facility]. pt walked with walker and one assist to bathroom. currently resting quietly on stretcher in no apparent distress. rr even/unlabored. awaiting bed assignment. wctm
[2022-12-27] MEDS: Digoxin 0.5 MG/2 ML AMPUL 0.125 MG IVPUSH ×2 (09:05→11:04)
--- NOTE | 2022-12-27 09:23 | PC.NURSE ---
pt primary nurse from [facility] called and spoke with this RN. update given and phone number taken down, said could call with any questions. TAWANA Flores cell: [phone]
[2022-12-27] MEDS: Lidocaine HCl 1 % MPF 2 ML VIAL INFILTRATI (09:28)
--- NOTE | 2022-12-27 11:16 | PHA.MEDREC ---
Pharmacy Consult ? Medication Reconciliation Pharmacy has completed the medication reconciliation. used list from [facility] in [place] and claim history. Called them to verify levothyroxine and the day that Trulicity is given ().
[2022-12-27 12:00] VITALS: BP 117/66; PULSE 116; RESP 20; TEMP 36.4; O2SAT 98
[2022-12-27] MEDS: Morphine Sulfate 4 MG/ML CARTRIDGE IVPUSH (14:36)
[2022-12-27] MEDS: 0.9 % Sodium Chloride Flush 3 ML SYRINGE IVFLUSH ×2 (14:36→20:21)
--- NOTE | 2022-12-27 15:04 | PC.NURSE ---
Patient arrived to unit approx 1145 oriented to room, call hagen system and staff. Alert to self and hospital only although unsure of which. Follows commands pleasant and cooperative. LING to command 4/5 generalized weakness OOB to bathroom with walker 1 assist very unsteady gait. Denies pain on arrival to unit. Sutures to bridge of nose intact, rhino rocket to right nare. Old dried blood to mouth/nares no active bleeding noted. Right eye orbit with edema/ecchymosis pt able to open eye slightly pupils PERRLA 2B. Lung sounds clear, dim no shortness of breath or chest pain, Afib on tele 100-140. Approx 1345 pt noted to have pulled rhino rocket from nare no bleeding noted at this time, Dr Jenkins notified via [employer]. c/o pain in afternoon IV morphine given with effect, HR remains 100-140 Dr Jenkins notified plan to order Lopressor. IV antibiotics infusing per order. Will continue to monitor and report changes
[2022-12-27 15:12] VITALS: BP 100/59; PULSE 129; RESP 20; TEMP 36.7; O2SAT 97
[2022-12-27] MEDS: Metoprolol Tartrate 5 MG/5 ML VIAL IVPUSH (15:31)
[2022-12-27 19:04] VITALS: BP 100/57; PULSE 101; RESP 20; TEMP 37.1; O2SAT 97
[2022-12-28] VITALS: BP 110/58; PULSE 64; RESP 18; TEMP 37; O2SAT 97
[2022-12-28 04:00] VITALS: BP 112/56; PULSE 86; RESP 18; TEMP 36.8; O2SAT 98
[2022-12-28] MEDS: ceFAZolin Sodium/Dextrose,Iso 2 GM/50 ML PIGGYBACK IV (05:52)
[2022-12-28 07:27] VITALS: BP 126/65; PULSE 79; RESP 20; TEMP 36.1; O2SAT 98
--- NOTE | 2022-12-28 09:38 | PC.NURSE ---
patient has no access, he pulled iv from left hand.
[2022-12-28 11:37] VITALS: BP 122/67; PULSE 85; RESP 20; TEMP 36.6; O2SAT 98
--- NOTE | 2022-12-28 12:18 | MHC.CM.PN ---
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
--- NOTE | 2022-12-28 12:57 | P.DS_ITS ---
DS: Providers Provider Date of Service: 12/28/22 Date of admission: 12/27/22 08:26 Date of discharge: 12/28/22 Primary care physician: Unknown Physician DS: Diagnosis Discharge Diagnosis (1) Open displaced fracture of nasal bone: Status: Acute (2) Atrial fibrillation with RVR: Status: Acute (3) Paranoid schizophrenia: Status: Acute (4) Essential (primary) hypertension: Status: Acute DS: Summary Hospital Course Hospital Course: 62-year-old male resident of [facility] with known night terrors awoke abruptly tripped and fell falling flat on his face.? Facility denies loss of consciousness.? Patient is on Eliquis for history of AFib.? In the emergency room workup was consistent with a comminuted nasal fracture treated as exposed fracture.? Call placed to [facility] trauma who referred to maxillofacial surgeon who recommended ENT.? ENT said they will see patient Thursday as an outpatient.? Given the extent of his injury he will be admitted for pain control and monitoring of septal injury Hospital Course Admitted to general medical floor. The 1st 24 hours he removed his rhino rocket packing without incident. He continued to do well without significant utilization of pain meds. At this point in time he be discharged back to [facility]. Spoke with covered ENT and office will call [facility] in a.m. with appointment time likely in the afternoon. A disc was made with his CT scan that needs to go with him to the ENT appointment Time Spent with Patient Time attestation: Total time managing care of this patient today ____ minutes. Discharge coordination time: Greater than 30 minutes Quality: Safe Use of Opioids Does Pt have an Active Cancer Diagnosis on the Problem List?: No Quality: Stroke Does the patient have a stroke diagnosis?: No Physical Exam Vital Signs: Vital Signs: Last Vital Signs Temp 97.8 F 12/28/22 11:37 Pulse 85 12/28/22 11:37 Resp 20 12/28/22 11:37 BP 122/67 12/28/22 11:37 Pulse Ox 98 12/28/22 11:37 O2 Del Method Room Air 12/28/22 11:37 BMI result Body Mass Index 27.4 Const: Other: Awake alert uncomfortable appearing HEENT: Other: Laceration to bridge of nose sutured in ER. Resp: Other: Clear to auscultation bilaterally no rales rhonchi or wheezes Cardio: Other: No S4; positive S1-S2; no S3 murmurs rubs or gallops GI: Other: Soft nontender nondistended normoactive bowel sounds Extrem: Other: No edema bilaterally Discharge Plan Discharge Anticipated Discharge Date/Time: 12/28/22 12:45 Patient Disposition: er [facility] Discharge Diagnosis: Open displaced fracture of nasal bone Referrals: [facility] [Outside] - 1 Week Physician,Unknown J [Primary Care Provider] - 1 Week Discharge Medications: Continued atorvastatin 80 mg tablet 1 tab PO DAILY levothyroxine 75 mcg tablet 1 tab PO DAILY pantoprazole 40 mg tablet,delayed release (DR/EC) 1 tab PO BID ferrous sulfate 325 mg (65 mg iron) Tablet 325 mg PO DAILY aspirin 81 mg Tablet,Chewable 81 mg PO DAILY lactulose 10 gram/15 mL solution 30 ml PO DAILY clozapine 200 mg tablet 1 tab PO BEDTIME insulin glargine [Lantus Solostar U-100 Insulin] 100 unit/mL (3 mL) insulin pen 20 unit subcut BID omega 3-qhz-yru-fish oil [Fish Oil] 1,000 mg (120 mg-180 mg) Capsule 1 cap PO BID Tradjenta 5 mg tablet 1 tab PO DAILY Invokana 100 mg tablet 1 tab PO DAILY Trulicity 0.75 mg/0.5 mL pen injector 0.5 ml subcut TH Eliquis 5 mg Tablet 5 mg PO BID Qty: 60 0RF metoprolol tartrate 25 mg Tablet 25 mg PO BID Qty: 60 0RF Protocol: Hold for SBP/HR < HOLD for SBP < : 90 HOLD for HR < : 60 metformin 500 mg tablet 500 mg PO BID sennosides [senna] 8.6 mg Tablet 8.6 mg PO DAILY PRN (Reason: Constipation) nystatin 100,000 unit/gram Powder 1 appl TOPICAL DAILY Rx Instructions: apply to heels/bottom of feet nicotine 7 mg/24 hr Patch 24 Hour 1 patch TRANSDERMAL Q24H PRN (Reason: Smoking Cessation) Discharge Orders: Discharge Order (Routine); Ordered 12/28/22 Ordered By: Lamonte Jenkins Diet: Advance to usual diet Activity on Discharge: As tolerated Stand Alone Forms: Patient Portal Discharge page Care Plan Goals: Follow-up with Dr. Carr ;office will call in am with time Health Concerns: Continue Keflex 500 t.i.d. as ordered Plan of Treatment: Further plans as per ENT Assessment: See discharge summary
== END 2022-12-28 15:13 | DRG 155 ==
LOC: HO.ED 08:24 → HO.EDOVER 08:37 → HO.IMC 10:20
PROVIDERS: Admitting Provider Hospitalist; Emergency Provider Emergency Medicine; PCP Hospitalist; Visit Provider Hospitalist
DX: S02.2XXB Fracture of nasal bones, initial encounter for open fracture (principal); F20.0 Paranoid schizophrenia; W22.8XXA Striking against or struck by other objects, initial encounter; I10 Essential (primary) hypertension; Z87.891 Personal history of nicotine dependence; Z79.4 Long term (current) use of insulin; Z79.01 Long term (current) use of anticoagulants; Z79.82 Long term (current) use of aspirin; Z79.84 Long term (current) use of oral hypoglycemic drugs; Z79.899 Other long term (current) drug therapy; I48.91 Unspecified atrial fibrillation
CPT/HCPCS: 36415; 70450; 70486; 72125; 80048; 85025; 85610; 85730; 93005; 96365; 96366; 96368; 96375; 99285; J0690; J1160; J2270; J3010

== ENCOUNTER 2023-02-18 09:03 | Outpatient (REF) | payer MEDICARE, MEDICAID, SELFPAY ==
--- NOTE | ~2023-02-18 | XR_ITS ---
EXAMINATION: XR chest 1V XR abdomen 1V CLINICAL INFORMATION: Reason for Exam VOMITING COMPARISON: 12/13/2021 TECHNIQUE: Portable AP view of the chest AP supine views of the abdomen FINDINGS: Low lung volumes and bibasilar streaky opacities, likely subsegmental atelectasis. There is a streaky opacity in right midlung which could represent atelectasis or infiltrate. No pleural effusion or pneumothorax. Cardiac silhouette s. No acute osseous abnormalities. Massively distended sigmoid colon compatible with sigmoid volvulus. No pneumatosis or supine radiographic evidence of intraperitoneal free air. Moderate constipation. XR/XR abdomen 1V IMPRESSION: * Low lung volumes and bibasilar subsegmental atelectasis. * Right midlung streaky opacity could represent atelectasis or infiltrate. * Sigmoid volvulus. * No pneumatosis or supine radiographic evidence of intraperitoneal free air. This critical result was discussed with Dr Jansen at 02/20/2023 3:19 AM and it was ascertained that the content and urgency of the report was understood at the time of direct communication.
== END 2023-02-18 09:04 | disposition home or self-care (01) ==
LOC: HO.XRAY 09:03
PROVIDERS: PCP Hospitalist; Visit Provider Hospitalist
DX: Z13.89 Encounter for screening for other disorder (principal)
CPT/HCPCS: 74018

== ENCOUNTER 2023-02-20 01:43 | Inpatient (IN) | payer MEDICARE, MEDICAID, SELFPAY ==
[2023-02-20] VITALS (18 sets, daily range): BP systolic 89–151; BP diastolic 52–119; PULSE 68–162; RESP 18–39; TEMP 36.1–37.8; O2SAT 90–99; BMI 24.7
--- NOTE | ~2023-02-20 | XR_ITS ---
EXAMINATION: XR CHEST CLINICAL INFORMATION: Enteric tube placement. COMPARISON: Chest radiograph 03/08/2023. TECHNIQUE: Frontal view of the chest was obtained. FINDINGS: Enteric tube is located more proximally compared to the most recent prior with the side-port at the level of the gastroesophageal junction/gastric fundus. Stable appearance of the cardiomediastinal silhouette with redemonstration of sternal wires and mediastinal surgical clips. Multifocal airspace opacities in the right lung are not significantly changed. No pleural effusion or pneumothorax. No acute osseous abnormalities. XR/XR chest 1V IMPRESSION: 1. Enteric tube is located more proximally compared to the most recent prior with the side-port at the level of the gastroesophageal junction/gastric fundus. Recommend advancement. 2. Unchanged multifocal airspace opacities in the right lung.
--- NOTE | ~2023-02-20 | CT_ITS ---
EXAMINATION: CT ABDOMEN AND PELVIS WITHOUT CONTRAST CLINICAL INFORMATION: Altered mentation. Metabolic acidosis. COMPARISON: Previous CT of the abdomen and pelvis 03/03/2020 TECHNIQUE: Multidetector volumetric imaging was performed from the superior aspect of the liver through the pubic symphysis. Sagittal and coronal reformatted images were obtained on the technologist's workstation. This CT examination was performed using dose optimization techniques as appropriate, variously including the following: *Automated exposure control *Adjustment of mA and/or kV according to patient size (this includes techniques or standardized protocols for targeted exams where dose is matched to indication/reason for exam; i.e. extremities or head) *Use of iterative reconstruction technique DLP: 602 mGy-cm FINDINGS: LUNG BASES: There are small bilateral pleural effusions and bilateral lower lobe atelectasis/pneumonia right greater than left. The visualized thoracic esophagus appears dilated and fluid-filled. There is severe coronary artery calcification. There are median sternotomy wires. LIVER, GALLBLADDER, AND BILIARY TREE: The liver is normal in size, shape, and attenuation. No focal hepatic lesion or biliary ductal dilatation is present. The gallbladder is unremarkable with no evidence of radiopaque gallstones, gallbladder wall thickening, or obvious pericholecystic inflammatory changes. PANCREAS: Unremarkable. SPLEEN: Unremarkable. ADRENAL GLANDS: Unremarkable. KIDNEYS AND URETERS: The kidneys are normal in size, shape, and attenuation. No hydronephrosis, hydroureter, or calculi seen. No perinephric stranding. BLADDER: Bladder is well-distended. The bladder wall is slightly thickened and trabeculated. There is air seen in the bladder. There is air seen outside the bladder adjacent to the left anterior bladder wall. GASTROINTESTINAL TRACT: There are postsurgical changes following Parks pouch and left lower quadrant colostomy. The proximal colon, the right colon and transverse colon, is dilated and filled with stool. The more distal colon, the left colon proximal to the colostomy demonstrates mild wall thickening and appears less dilated. No fluid collection at or adjacent to the the colostomy There is a new G-tube. There is a new small amount of free intraperitoneal air. It is uncertain whether free air is related to interval G-tube placement. Clinical correlation recommended. Trace ascites. ABDOMINAL WALL: There is a irregularly-shaped high attenuation seen deep to the abdominal wall for example axial image 62 series 3, coronal reconstructed image 37 and sagittal reconstructed image 99. Clinical correlation i.e. was mesh placed in the abdominal wall is recommended. Retained foreign body/surgical spines should also be considered. There is a large heterogeneous partially high attenuation low abdominal wall mass or collection. This contains a small amount of air. This is a new finding from preoperative CT 02/20/2023. Extravesicular air adjacent to the bladder abuts this region. High attenuation is questionable for hemorrhage. Fistula either to the bowel or bladder and possible infected hematoma should also be considered. LYMPH NODES: Normal. VASCULAR: Atherosclerotic disease. No aneurysm. PELVIC VISCERA: The prostate gland is slightly enlarged. OSSEOUS STRUCTURES: Degenerative changes of the spine. CT/CT abdomen pelvis wo IV con IMPRESSION: Multiple significant findings. New small amount of free intraperitoneal air. There is a new G-tube. It is uncertain whether the air could be related to G-tube placement. Irregularly-shaped high attenuation material deep to the abdominal wall. Clinically correlate for previous hernia repair with mesh. Retained surgical foreign body/sponge cannot be excluded. Dilated stool-filled proximal colon. Mild wall thickening of the more distal left colon just proximal to the ostomy. Possible colitis and partial large bowel obstruction should be considered. No fluid collection at the ostomy. Slightly thickened trabeculated bladder wall. Air in the bladder and small amount of extravesicular air adjacent to the left anterior bladder wall. Infection, fistula and injury to the bladder should be considered. Large heterogeneous partially high attenuation low midline abdominal wall mass. This contains a small amount of air. Differential would include post operative hemorrhage. Given small amount of air, possible fistula to the bowel or bladder and infected hematoma should also be considered. Bilateral lower lobe atelectasis/small pneumonia and pleural effusions, right greater than left. Fleischner guidelines were followed. Findings will be communicated by the [place] work flow inspector bicycle.
--- NOTE | ~2023-02-20 | XR_ITS ---
EXAMINATION: XR ABDOMEN KUB CLINICAL INDICATION: Follow-up signal involving the COMPARISON: Earlier same date TECHNIQUE: AP view of the abdomen. XR/XR KUB FINDINGS/IMPRESSION: No change in appearance of the sigmoid volvulus with markedly dilated hollow viscus in the right hemiabdomen. Is this a left lateral decubitus image ? No free air. Moderate stool throughout the remainder of the colon upstream from the volvulus. Enteric tube terminates in the stomach.
--- NOTE | ~2023-02-20 | XR_ITS ---
EXAMINATION: XR CHEST CLINICAL INFORMATION: NG tube placement COMPARISON: None available. TECHNIQUE: Frontal view of the chest was obtained. FINDINGS: The tip of the NG tube is beyond the [id number] although the side port is in the proximal body indicative of the fact that the tip is probably in the gastric antrum. Patient status post median sternotomy. Right lung infiltrates and left basilar infiltrate unchanged. XR/XR chest 1V IMPRESSION: The tip of the NG tube is probably in the gastric antrum.
--- NOTE | ~2023-02-20 | XR_ITS ---
EXAMINATION: XR chest 1V XR abdomen 1V CLINICAL INFORMATION: Reason for Exam VOMITING COMPARISON: 12/13/2021 TECHNIQUE: Portable AP view of the chest AP supine views of the abdomen FINDINGS: Low lung volumes and bibasilar streaky opacities, likely subsegmental atelectasis. There is a streaky opacity in right midlung which could represent atelectasis or infiltrate. No pleural effusion or pneumothorax. Cardiac silhouette s. No acute osseous abnormalities. Massively distended sigmoid colon compatible with sigmoid volvulus. No pneumatosis or supine radiographic evidence of intraperitoneal free air. Moderate constipation. XR/XR chest 1V IMPRESSION: * Low lung volumes and bibasilar subsegmental atelectasis. * Right midlung streaky opacity could represent atelectasis or infiltrate. * Sigmoid volvulus. * No pneumatosis or supine radiographic evidence of intraperitoneal free air. This critical result was discussed with Dr Jansen at 02/20/2023 3:19 AM and it was ascertained that the content and urgency of the report was understood at the time of direct communication.
--- NOTE | ~2023-02-20 | XR_ITS ---
EXAMINATION: XR CHEST CLINICAL INFORMATION: NG tube placement COMPARISON: 03/09/2023 TECHNIQUE: Frontal view of the chest was obtained. FINDINGS: Enteric tube tip lies in the region of the body of the stomach. Sternal wires are noted. Lung volumes are symmetric. Mild patchy opacities are noted in the mid to lower right lung. No evidence of pneumothorax or overt pulmonary edema. No appreciable right pneumothorax. The left apex is not fully included on this exam. The cardiomediastinal contour is unremarkable. No acute osseous findings are seen. XR/XR chest 1V IMPRESSION: Enteric tube tip in the region of the body of the stomach. Mild patchy mid to lower right lung opacities.
--- NOTE | ~2023-02-20 | XR_ITS ---
EXAMINATION: XR CHEST CLINICAL INFORMATION: Dyspnea COMPARISON: 03/02/2023 TECHNIQUE: Frontal view of the chest was obtained. FINDINGS: Median sternotomy wires appear intact. Cardiac leads overlie the chest. Lung volumes are low. Increased patchy opacities of the right mid to lower lung. No pleural effusion or pneumothorax. The cardiomediastinal silhouette is unchanged. XR/XR chest 1V IMPRESSION: Increased patchy opacities of the right mid to lower lung could be infectious or inflammatory.
--- NOTE | ~2023-02-20 | XR_ITS ---
EXAMINATION: XR ABDOMEN KUB CLINICAL INDICATION: Sigmoid volvulus. COMPARISON: CT scan of the abdomen and pelvis dated 02/20/2023. TECHNIQUE: AP view of the abdomen. FINDINGS: Again seen is marked gaseous distention of the colon with similar appearance. No significantly dilated loops small bowel. XR/XR KUB IMPRESSION: Persistent marked gaseous distention of the colon correlating with previous CT findings most consistent with sigmoid volvulus.
--- NOTE | ~2023-02-20 | XR_ITS ---
EXAMINATION: XR CHEST CLINICAL INFORMATION: Fever COMPARISON: 03/09/2023 TECHNIQUE: Frontal view of the chest was obtained. FINDINGS: The lungs are mildly hypoinflated. Mild patchy bibasilar opacities appear similar to slightly increased from prior. No evidence of pneumothorax or significant pleural effusion. The cardiomediastinal silhouette is stable. Sternal wires are present. No acute osseous findings are seen. XR/XR chest 1V IMPRESSION: Mild patchy bibasilar opacities appear similar to slightly increased from prior.
--- NOTE | ~2023-02-20 | XR_ITS ---
EXAMINATION: XR CHEST CLINICAL INFORMATION: Coughing. COMPARISON: 02/20/2023 chest radiograph. TECHNIQUE: Frontal view of the chest was obtained. FINDINGS: Hazy opacities are seen inferiorly in the right upper lobe and right perihilar region. The left lung is clear. The heart and mediastinal structures are unremarkable. XR/XR chest 1V IMPRESSION: Hazy opacities in the right upper lobe and right perihilar region appear mildly increased in the previous study suggesting increasing atelectasis/infiltrate.
--- NOTE | ~2023-02-20 | XR_ITS ---
EXAMINATION: XR CHEST CLINICAL INFORMATION: NG tube placement involving disc levels and COMPARISON: Chest x-ray 03/08/2023 at 11:24 AM TECHNIQUE: Frontal view of the chest was obtained. FINDINGS: The enteric tube tip is in distal stomach.. The lungs are expanded with patchy slowly resolving infiltrates in the right lung. Heart size and perivascular is normal. No gross bony abnormality seen there are median sternotomy sutures. XR/XR chest 1V IMPRESSION: Tip of enteric tube has been advanced and lies in the distal stomach. No change in the right lung airspace opacity from early exam.
--- NOTE | ~2023-02-20 | XR_ITS ---
EXAMINATION: XR CHEST CLINICAL INFORMATION: Enteric tube placement COMPARISON: Multiple priors TECHNIQUE: Frontal view of the chest was obtained. FINDINGS: Nasogastric tube terminates below the diaphragm, in the mid abdomen likely within the distal stomach. Persistent colonic dilatation as previously seen. Low lung volumes with left basilar subsegmental atelectasis. Patchy opacities redemonstrated in the right lung, similar to prior remain concerning for multifocal infiltrates. Normal heart size and pulmonary vascularity. No acute osseous abnormalities. XR/XR chest 1V IMPRESSION: * Nasogastric tube terminates within the mid abdomen likely within the distal stomach. * Persistent colonic dilatation. * Stable patchy opacities within the right lung.
--- NOTE | ~2023-02-20 | XR_ITS ---
EXAMINATION: XR CHEST CLINICAL INFORMATION: Fever, rule out aspiration. COMPARISON: Chest radiographs dated 02/22/2023. TECHNIQUE: Frontal view of the chest was obtained. FINDINGS: Support devices: Interval removal of enteric tube. Multilevel sternotomy wires are intact. Mild linear markings are again seen in the right midlung. The left lung is clear. The heart and mediastinal structures are unremarkable. XR/XR chest 1V IMPRESSION: Mild linear atelectasis/scarring without significant change. If symptoms persist or worsen, short-term PA and lateral views of chest are recommended.
--- NOTE | ~2023-02-20 | XR_ITS ---
EXAMINATION: XR CHEST CLINICAL INFORMATION: NG tube placement COMPARISON: Chest radiograph couple of hours ago TECHNIQUE: Frontal view of the chest was obtained. FINDINGS: The NG tube has its tip in the gastric body. No other interval change. XR/XR chest 1V IMPRESSION: NG tube with tip in gastric body.
--- NOTE | ~2023-02-20 | XR_ITS ---
EXAMINATION: XR CHEST CLINICAL INFORMATION: NG tube placement COMPARISON: None available. TECHNIQUE: Frontal view of the chest was obtained. FINDINGS: The lungs are well-expanded with right lower lobe resolving infiltrate. Heart size is normal. Pulmonary vascularity is within normal limits. There is an enteric tube with its tip at the GE junction and needs to be advanced. There is elevated right hemidiaphragm. There are median sternotomy sutures from previous intervention. No gross bony abnormality. XR/XR chest 1V IMPRESSION: Tip of enteric tube at GE junction and needs to be advanced at least by 8 to 10 cm. Slowly resolving right lower lobe infiltrate.
--- NOTE | ~2023-02-20 | CT_ITS ---
EXAMINATION: CT ABDOMEN AND PELVIS WITH CONTRAST CLINICAL INFORMATION: Altered mentation, metabolic acidosis. COMPARISON: CT abdomen and pelvis without IV contrast 02/20/2023. TECHNIQUE: Multidetector volumetric images were obtained from the superior aspect of the liver through the pubic symphysis following administration 85 mL of Omnipaque 350 intravenous contrast. Sagittal and coronal reformatted images were obtained on the technologist's workstation. Oral Contrast: No. This CT examination was performed using dose optimization techniques as appropriate, variously including the following: *Automated exposure control. *Adjustment of mA and/or kV according to patient size (this includes techniques or standardized protocols for targeted exams where dose is matched to indication/reason for exam; i.e. extremities or head). *Use of iterative reconstruction technique. DLP: 1022 mGy-cm FINDINGS: LUNG BASES: Heart size is normal with coronary artery calcifications. There is a right lower lobe infiltrate and likely small left lower lobe infiltrate. There is bilateral small pleural effusions. Suspect small hiatal hernia. LIVER, GALLBLADDER, AND BILIARY TREE: The liver is normal in size, shape, and attenuation. No focal hepatic lesion or biliary ductal dilatation is present. The gallbladder is unremarkable with no evidence of radiopaque gallstones, gallbladder wall thickening, or obvious pericholecystic inflammatory changes. PANCREAS: Unremarkable. SPLEEN: Unremarkable. ADRENAL GLANDS: Unremarkable. KIDNEYS AND URETERS: The kidneys are normal in size, shape, and attenuation. No hydronephrosis, hydroureter, or calculi seen. No perinephric stranding. BLADDER: There is diffuse bladder wall thickening with air-fluid level. This could be secondary to instrumentation or inflammatory process. The prostate gland is normal. GASTROINTESTINAL TRACT: There is large amount of stool in the left transverse, splenic flexure and proximal descending colon extending into the colostomy. This could be secondary to stasis. There is probably sigmoid resection. The small bowel loops are unremarkable. The stomach is nondistended. ABDOMINAL WALL: There is a left lower quadrant colostomy. There is soft tissue heterogeneous density in the midline lower anterior abdominal wall likely previous hernia repair with mesh in place. Inferior to that is diffuse thickening of the abdominal wall, question hematoma. It is best visualized on sagittal images 63/8. It measures approximately 12 cm in craniocaudad length, 8.4 cm wide and 4.22 cm in AP dimension on axial image 83/3. It is new since the last exam. LYMPH NODES: Normal. VASCULAR: Unremarkable. PELVIC VISCERA: There is a small amount of free fluid in the pelvis and right paracolic gutter. The prostate gland appears normal. No inguinal hernia or lymph nodes seen. OSSEOUS STRUCTURES: Mild ventral spondylosis at L2-L3 disc level. No aggressive lytic or sclerotic process seen. There are median sternotomy sutures. CT/CT abdomen pelvis w IV con IMPRESSION: 1. Large amount of stool in the left transverse, splenic flexure and proximal descending colon extending into the left lower quadrant colostomy. This could be secondary to stasis. 2. Diffuse bladder wall thickening with air-fluid level. Question inflammatory process or instrumentation. 3. Bilateral lower lobe infiltrates, right greater than left, with bilateral small pleural effusions. 4. Heterogeneous soft tissue density along lower anterior abdominal wall likely at the site of hernia repair but below the mesh. This is suspicious for hematoma. 5. There is a small amount of free fluid in the pelvis and right paracolic gutter. . 6. Right lower lobe infiltrate with small bilateral pleural effusions. Fleischner guidelines were followed.
--- NOTE | ~2023-02-20 | XR_ITS ---
EXAMINATION: XR CHEST CLINICAL INFORMATION: Fever. COMPARISON: 02/22/2023 TECHNIQUE: Frontal view of the chest was obtained. FINDINGS: The cardiomediastinal silhouette is stable. There as been a previous median sternotomy. Streaky linear densities are seen within the bilateral mid to lower lung davila. There is also mild diffuse increased interstitial markings lower lung davila. There is no focal consolidation or pleural effusion. The bony structures and soft tissues are unremarkable. XR/XR chest 1V IMPRESSION: Streaky linear densities bilateral mid to lower lung field suggests atelectasis and/or scarring. There is also mild increased markings in the lower lung davila suspected to be chronic as similar change was seen previously. There is no definitive active infiltrate or significant pleural effusion.
--- NOTE | ~2023-02-20 | CT_ITS ---
EXAMINATION: CT ABDOMEN AND PELVIS WITHOUT CONTRAST CLINICAL INFORMATION: Abdominal distention. COMPARISON: Abdominal plain films from 02/18/2023 TECHNIQUE: Multidetector volumetric imaging was performed from the superior aspect of the liver through the pubic symphysis. Sagittal and coronal reformatted images were obtained on the technologist's workstation. This CT examination was performed using dose optimization techniques as appropriate, variously including the following: *Automated exposure control *Adjustment of mA and/or kV according to patient size (this includes techniques or standardized protocols for targeted exams where dose is matched to indication/reason for exam; i.e. extremities or head) *Use of iterative reconstruction technique DLP: 827 mGy-cm FINDINGS: LUNG BASES: Images are degraded by motion artifact. There are scattered patchy opacities, which predominate dependently and have a nodular bronchocentric appearance suggestive of aspiration. LIVER, GALLBLADDER, AND BILIARY TREE: The liver is normal in size, shape, and attenuation. No focal hepatic lesion or biliary ductal dilatation is present. Cholelithiasis. PANCREAS: Unremarkable. SPLEEN: Unremarkable. ADRENAL GLANDS: Unremarkable. KIDNEYS AND URETERS: The kidneys are normal in size, shape, and attenuation. No hydronephrosis, hydroureter, or calculi seen. No perinephric stranding. BLADDER: Unremarkable. GASTROINTESTINAL TRACT: There is a sigmoid volvulus with massive dilatation of the involved sigmoid colon measuring up to 12.4 cm in diameter, associated with a large bowel obstruction with large volume stool throughout the ascending and transverse colon. There is no pericolic fat stranding or pneumatosis. No free intraperitoneal free air or portal venous gas. The stomach has been decompressed by a nasogastric tube. Small bowel is nondilated. Normal appendix. ABDOMINAL WALL: No significant hernia is appreciated. LYMPH NODES: Normal. VASCULAR: Aorta mildly atherosclerotic but normal caliber. PELVIC VISCERA: Unremarkable. OSSEOUS STRUCTURES: No acute or suspicious osseous abnormalities. CT/CT abdomen pelvis wo IV con IMPRESSION: * Sigmoid volvulus with massive dilatation of the involved sigmoid colon measuring up to 12.4 cm in diameter, associated with large bowel obstruction. * No evidence of bowel ischemia at this time. * Cholelithiasis. * Dependently predominant patchy pulmonary parenchymal opacity suspicious for aspiration. Multifocal pneumonia could also have this appearance. This critical result was discussed with Dr Jansen at 02/20/2023 3:19 AM and it was ascertained that the content and urgency of the report was understood at the time of direct communication.
[2023-02-20 02:00] LABS: Glucose, Whole Blood 273 mg/dL (60-115)
--- NOTE | 2023-02-20 02:01 | ECG_ITS ---
Test Reason : TACHY/SOB Blood Pressure : / mmHG Vent. Rate : 182 BPM Atrial Rate : 220 BPM P-R Int : 000 ms QRS Dur : 084 ms QT Int : 270 ms P-R-T Axes : 000 062 073 degrees QTc Int : 469 ms Artifact in tracing Undetermined rhythm ; possibly atrial fibrillation with rapid rate Minimal voltage criteria for LVH, may be normal variant ( Edwin product ) Abnormal ECG When compared with ECG of 27-DEC-2022 04:09, rhythm change; increase in ventricular rate Referred By: Generic ED Physician Electronically Signed By:AKTHY RECIO
[2023-02-20 02:14] LABS: MANUAL DIFF FLAG NO
[2023-02-20] MEDS: Metoprolol Tartrate 5 MG/5 ML VIAL IVPUSH ×3 (02:15→09:03)
[2023-02-20 02:16] LABS: Basophils Absolute Auto 0.1 X10*3/uL (0.0-0.2); Basophils Percent Auto 0.3 % (0-2); Eosinophils Absolute Auto 0.1 X10*3/uL (0.0-0.4); Eosinophils Percent Auto 0.3 % (0-4); Hematocrit 45.2 % (42.0-52.0); Hemoglobin 14.7 g/dl (14.0-18.0); Imm Gran Abs Auto 0.12 X10*3/uL (0.00-0.03); Imm Gran Pct Auto 0.6 % (0.0-0.4); Lymphocytes Absolute Auto 1.6 X10*3/uL (1.2-4.9); Lymphocytes Percent Auto 8.3 % (20-40); Mean Corpuscular HGB Conc 32.5 g/dl (31.0-36.0); Mean Corpuscular Hemoglobin 27.4 pg (27.0-33.0); Mean Corpuscular Volume 84.2 fL (80.0-98.0); Mean Platelet Volume 10.9 fL (9.4-12.4); Monocytes Absolute Auto 1.3 X10*3/uL (0.1-1.2); Monocytes Percent Auto 6.9 % (2-11); Neutrophils Absolute Auto 16.1 x10*3/uL (2.0-8.3); Neutrophils Percent Auto 83.6 % (45-73); Platelet Count 307 X10*3/uL (160-400); Red Blood Count 5.37 X10*6/uL (4.60-5.80); Red Cell Distribution Width 15.7 % (11.0-16.0); White Blood Count 19.2 X10*3/uL (4.8-10.8)
[2023-02-20 02:19] LABS: Venous Blood Gas Refer to POC result
[2023-02-20 02:20] LABS: VBG Base Excess -6.3 mmol/L; VBG HCO3 17 mmol/L (22-26); VBG pCO2 28 mmHg; VBG pH 7.38 (7.32-7.43); VBG pO2 71 mmHg
[2023-02-20 02:23] LABS: INTERNATIONAL NORM RATIO 1.7 (0.9-1.1); Prothrombin Time 20.3 SEC (11.1-13.3)
[2023-02-20 02:25] LABS: D Dimer High Sensitivity 237 NG/ML
--- NOTE | 2023-02-20 02:30 | ED_ITS ---
HPI - General Adult General Chief complaint: Dyspnea Stated complaint: ABD DISTENTION,SOB 93% 4LPM FROM SNF PER EMS Time Seen by Provider: 02/20/23 02:12 Source: EMS, RN notes reviewed and old records reviewed Mode of arrival: EMS Limitations: no limitations History of Present Illness HPI narrative: 62-year-old male came in from [facility] for evaluation of distended abdomen and hypoxia. Patient with history of dementia, non historian, COPD, dm 2, dysphagia, dyskinesia, anemia, hypothyroidism, paranoid schizophrenia, CAD s/p CABG, history of TIA. Patient found in the emergency room with abdominal distension, and patient also been having difficulty breathing which is likely secondary to severe abdominal distension and hypoxia, patient with known history of atrial fibrillation and heart rate of 180s. Related Data Home Medications Medication Instructions Recorded Confirmed aspirin 81 mg chewable tablet 81 mg PO DAILY 12/13/21 12/27/22 atorvastatin 80 mg tablet 1 tab PO DAILY 12/13/21 12/27/22 canagliflozin 100 mg tablet 1 tab PO DAILY 12/13/21 12/27/22 (Invokana) clozapine 200 mg tablet 1 tab PO BEDTIME 12/13/21 12/27/22 dulaglutide 0.75 mg/0.5 mL 0.5 ml subcut TH 12/13/21 12/27/22 subcutaneous pen injector (Trulicity) ferrous sulfate 325 mg (65 mg 325 mg PO DAILY 12/13/21 12/27/22 iron) tablet insulin glargine 100 unit/mL (3 20 unit subcut BID 12/13/21 12/27/22 mL) subcutaneous pen (Lantus Solostar U-100 Insulin) lactulose 10 gram/15 mL oral 30 ml PO DAILY 12/13/21 12/27/22 solution levothyroxine 75 mcg tablet 1 tab PO DAILY 12/13/21 12/27/22 linagliptin 5 mg tablet (Tradjenta) 1 tab PO DAILY 12/13/21 12/27/22 omega 3-jwn-dhp-fish oil 1,000 mg 1 cap PO BID 12/13/21 12/27/22 (120 mg-180 mg) capsule (Fish Oil) pantoprazole 40 mg tablet,delayed 1 tab PO BID 12/13/21 12/27/22 release metformin 500 mg tablet 500 mg PO BID 12/27/22 12/27/22 nicotine 7 mg/24 hr daily 1 patch transdermal Q24H PRN 12/27/22 12/27/22 transdermal patch Smoking Cessation nystatin 100,000 unit/gram topical 1 appl topical DAILY 12/27/22 12/27/22 powder sennosides 8.6 mg tablet (senna) 8.6 mg PO DAILY PRN Constipation 12/27/22 12/27/22 Previous Rx's Medication Instructions Recorded apixaban 5 mg tablet (Eliquis) 5 mg PO BID #60 tabs 12/16/21 metoprolol tartrate 25 mg tablet 25 mg PO BID #60 tabs 12/16/21 Allergies Allergy/AdvReac Type Severity Reaction Status Date / Time No Known Allergies Allergy Unverified 04/05/20 19:36 [No Known Allergies*] Review of Systems Review of Systems: Yes Unobtainable due to mental condition PMFSH Past Medical History Medical History Altered mental status Amblyopia, left eye Anemia Atherosclerotic heart disease of [place] coronary artery without angina pectoris Boutonniere deformity of finger Cognitive impairment COPD (chronic obstructive pulmonary disease) COVID-19 Dementia Drug induced subacute dyskinesia Dysphagia Encephalopathy Essential (primary) hypertension Exotropia, alternating, with A pattern Hyperlipidemia Hypermetropia of both eyes Hypothyroidism Palsy (spasm) of conjugate gaze Paranoid schizophrenia Personal history of transient ischemic attack (TIA), and cerebral infarction without residual deficits Ptosis of right eyelid Type 2 diabetes mellitus Surgical History Presence of aortocoronary bypass graft Social History Social History Household Members: None Household Members Other:: [facility] Housing: [facility] Do you presently have visiting nurse or other home services: No Unable to assess alcohol history related to: Refusing to respond Patient Tobacco Use Status: Former Tobacco user Tobacco use type: Cigarette Years Smoked: SURAJ Advance Directives: Yes Advance Directives on File: Yes Advance Directives Date on File: 12/14/21 service: No Current occupational status: disabled Physical Exam ED Vital Signs: Vital Signs - 24 hr 02/20/23 01:52 02/20/23 02:24 08/04/23 02:35 Temperature 96.9 F Pulse Rate 68 162 H 108 H Respiratory Rate 34 H 39 H 39 H Blood Pressure 89/61 L 151/119 H 109/85 Pulse Oximetry 90 L 94 Oxygen Delivery Method Nasal Cannula Non-Rebreather Mask Oxygen Flow Rate 6 02/20/23 04:03 02/20/23 04:11 Temperature 100 F 100.0 F Pulse Rate 117 H Respiratory Rate 30 H Blood Pressure 93/69 Pulse Oximetry 92 Oxygen Delivery Method Non-Rebreather Mask Oxygen Flow Rate BMI result Body Mass Index 24.7 Vital signs have been reviewed as appeared to be correct. Blood pressure elevated. Heart rate normal. Respiration rate normal. Temperature normal. Oxygen saturation normal. Appearance: Non historian,. No acute distress. Head: Normal external exam. Normocephalic. Atraumatic. No Waterman signs noted. No raccoon eyes noted Eyes: PERRLA. EOMI. Conjunctiva and sclera normal. Eyelids normal. ENT: TM's Normal. Pharynx normal. Uvula midline. Moist mucous membranes. No trismus noted. No drooling noted. No muffled voice noted. Neck: Normal inspection. Neck supple. FROM. No adenopathy. Thyroid Normal. No meningeal signs. No neck mass noted. CVS: Normal heart rate and rhythm. Heart sound normal. No murmurs noted. Pulses normal throughout. Respiratory: No respiratory distress. Painless inspiration. Breath sounds normal. Diffuse rales. Chest nontender. No accessory muscle usage noted or decreased air movement noted. Abdomen: Severe distension, mild diffuse abdominal tenderness, no guarding, no rebound tenderness.. Bowel sounds are hyperactive in all 4 quadrants. No organomegaly noted. No visible injury noted. Back: No CVA tenderness. Full range of motion noted. Skin: Skin warm and dry. Normal skin color. Normal skin turgor. No rashes/lesions/lacerations noted. Extremities: No lower extremity edema. Extremities exhibit normal range of mot ion. Extremities nontender. Course Reevaluation(s) Reevaluation #1: 62-year-old male with code status of full code came in from [facility] for evaluation of severely distended abdomen for the past 2 days. Lactic acidosis, sigmoid volvulus, UTI that will enroll the patient into criteria for septic shock now, received a dose of Zosyn,and 1 bolus of 250 cc of normal saline patient cannot get 30 cc/kg in congestive heart failure and acute respiratory distress and tachypnea refer to fluid bolus exclusion form. Rapid atrial fibrillation and shortness of breath with congestive heart failure heart rate was controlled by metoprolol 5 mg IV x2. Two days of abdominal distension CT/x-ray is showing sigmoid volvulus with no obvious ischemic change the case discussed with Dr. Mensah/and Dr. Gill and the plan is to take the patient to the OR for attempt of colonoscopic reduction of the volvulus , NG tube was placed with over a L of gastric content. Case discussed with Dr. Friedman to be admitted to the medical service. Time: 03:30 Reevaluation #2: Focused exam: Patient has looked better, better control of heart rate, and pain. Patient will be going to the OR for emergent colonoscopy in attempt to de torsion the sigmoid colon. With improvement of lactic acidosis, and blood pressure. Time: 05:45 Medications Administered Discontinued Medications Generic Name Dose Route Start Last Admin Trade Name Freq PRN Reason Stop Dose Admin Aspirin 325 mg 02/20/23 02:12 02/20/23 03:41 Aspirin Enteric Coated 325 Mg Tablet.Dr LUGO 02/20/23 02:13 Not Given ONCE ONE Sodium Chloride 250 mls @ 999 mls/hr 02/20/23 03:00 02/20/23 03:20 Ns IV 02/20/23 03:15 Infused .Q16M COLIN Infusion Piperacillin Sod/Tazobactam 50 mls @ 100 mls/hr 02/20/23 03:03 02/20/23 04:16 Sod 3.375 gm/ Sodium Chloride IV 02/20/23 03:32 Infused ONCE ONE Infusion Metoprolol Tartrate 5 mg 02/20/23 02:12 02/20/23 02:15 Metoprolol Tartrate 5 Mg/5 Ml Vial IVPUSH 02/20/23 02:13 5 mg ONCE ONE Administration Metoprolol Tartrate 5 mg 02/20/23 02:23 02/20/23 02:24 Metoprolol Tartrate 5 Mg/5 Ml Vial IVPUSH 02/20/23 02:24 5 mg ONCE ONE Administration Morphine Sulfate 1 mg 02/20/23 04:26 02/20/23 05:03 Morphine Sulfate 2 Mg/Ml Cartridge IVPUSH 02/20/23 04:27 Not Given ONCE ONE Protocol Pantoprazole Sodium 40 mg 02/20/23 03:04 02/20/23 03:41 Pantoprazole Sodium 40 Mg/10 Ml Vial IVPUSH 02/20/23 03:05 40 mg ONCE ONE Administration Medical Decision Making Differential Diagnosis Differential Diagnoses: The differential diagnosis associated with the presentation includes (Small-bowel obstruction, volvulus, ischemic bowel, rapid atrial fibrillation, ACS, congestive heart failure, pneumonia, pleural effusion, severe anemia, electrolyte abnormality, UTI..) Admission/Observation Consideration of admission/observation: Escalation of care including admission/observation considered Consult Healthcare Provider Management of the patient was discussed with: Hospitalist (Dr. Friedman) and Wellness Guide (Dr. Mensah/ Dr. Gill.) Lab Data MDM Lab Attestation statement: I reviewed the patient's lab results. 02/20/23 02:07 02/20/23 02:07 Labs: Lab Results 02/20/23 02/20/23 02/20/23 Range/Units 01:56 02:07 02:07 WBC 19.2 H (4.8-10.8) X10*3/uL RBC 5.37 (4.60-5.80) X10*6/uL Hgb 14.7 (14.0-18.0) g/dl Hct 45.2 (42.0-52.0) % MCV 84.2 (80.0-98.0) fL MCH 27.4 (27.0-33.0) pg MCHC 32.5 (31.0-36.0) g/dl RDW 15.7 (11.0-16.0) % Plt Count 307 D (160-400) X10*3/uL MPV 10.9 (9.4-12.4) fL Immature Gran % (Auto) 0.6 H (0.0-0.4) % Neut % (Auto) 83.6 H (45-73) % Lymph % (Auto) 8.3 L (20-40) % [place] % (Auto) 6.9 (2-11) % Eos % (Auto) 0.3 (0-4) % Baso % (Auto) 0.3 (0-2) % Lymph # (Auto) 1.6 (1.2-4.9) X10*3/uL [place] # (Auto) 1.3 H (0.1-1.2) X10*3/uL Eos # (Auto) 0.1 (0.0-0.4) X10*3/uL Baso # (Auto) 0.1 (0.0-0.2) X10*3/uL Abs Immat Gran (auto) 0.12 H (0.00-0.03) X10*3/uL Absolute Neuts (auto) 16.1 H (2.0-8.3) x10*3/uL Absolute Nucleated RBC 0.000 (0.0-0.012) X10*3/uL Nucleated RBC % (auto) 0.0 (0.0-0.2) /100WBC PT (11.1-13.3) SEC INR (0.9-1.1) D-Dimer High Sensitivty 237 NG/ML VBG pH (7.32-7.43) VBG pCO2 mmHg VBG pO2 mmHg VBG HCO3 (22-26) mmol/L VBG O2 Saturation % VBG Base Excess mmol/L Sodium (135-145) mmol/L Potassium (3.3-5.1) mmol/L Chloride (96-108) mmol/L Carbon Dioxide (22-29) mmol/L Anion Gap (12-20) BUN (9-16) mg/dL Creatinine (0.5-1.4) mg/dL Estim Creat Clear Calc Estimated GFR POC Glucose 273 H (60-115) mg/dL Random Glucose (60-115) mg/dL Lactic Acid (0.5-2.0) mmol/L Lactic Acid F/U @ 2Hr (0.5-2.0) mmol/L Calcium (8.4-10.2) mg/dL Total Bilirubin (0.0-1.0) mg/dL AST (5-37) U/L ALT (0-40) U/L Alkaline Phosphatase (39-117) U/L Troponin I High Sens (<3.5-35.0) ng/L B-Natriuretic Peptide (<100) pg/mL Total Protein (6.5-8.0) g/dL Albumin (3.5-5.0) g/dL Urine Color Urine Appearance Urine pH (5.0-9.0) Ur Specific Center Line (1.005-1.025) Urine Protein (Neg-Trace) mg/dL Urine Glucose (UA) (Negative) mg/dL Urine Ketones (Negative) mg/dL Urine Blood (Negative) Urine Nitrite (Negative) Ur Leukocyte Esterase (Negative) Urine RBC (0-2) /HPF Urine WBC (0-5) /HPF Ur Squamous Epith Cells (0-2) /HPF Urine Bacteria (None Seen) Hyaline Casts (0-2) /LPF Urine Yeast 02/20/23 02/20/23 02/20/23 Range/Units 02:07 02:07 02:07 WBC (4.8-10.8) X10*3/uL RBC (4.60-5.80) X10*6/uL Hgb (14.0-18.0) g/dl Hct (42.0-52.0) % MCV (80.0-98.0) fL MCH (27.0-33.0) pg MCHC (31.0-36.0) g/dl RDW (11.0-16.0) % Plt Count (160-400) X10*3/uL MPV (9.4-12.4) fL Immature Gran % (Auto) (0.0-0.4) % Neut % (Auto) (45-73) % Lymph % (Auto) (20-40) % [place] % (Auto) (2-11) % Eos % (Auto) (0-4) % Baso % (Auto) (0-2) % Lymph # (Auto) (1.2-4.9) X10*3/uL [place] # (Auto) (0.1-1.2) X10*3/uL Eos # (Auto) (0.0-0.4) X10*3/uL Baso # (Auto) (0.0-0.2) X10*3/uL Abs Immat Gran (auto) (0.00-0.03) X10*3/uL Absolute Neuts (auto) (2.0-8.3) x10*3/uL Absolute Nucleated RBC (0.0-0.012) X10*3/uL Nucleated RBC % (auto) (0.0-0.2) /100WBC PT (11.1-13.3) SEC INR (0.9-1.1) D-Dimer High Sensitivty NG/ML VBG pH (7.32-7.43) VBG pCO2 mmHg VBG pO2 mmHg VBG HCO3 (22-26) mmol/L VBG O2 Saturation % VBG Base Excess mmol/L Sodium 141 (135-145) mmol/L Potassium 4.1 (3.3-5.1) mmol/L Chloride 108 (96-108) mmol/L Carbon Dioxide 16 L (22-29) mmol/L Anion Gap 21 H (12-20) BUN 40 H (9-16) mg/dL Creatinine 1.27 (0.5-1.4) mg/dL Estim Creat Clear Calc 63.4 Estimated GFR 57 POC Glucose (60-115) mg/dL Random Glucose 296 H (60-115) mg/dL Lactic Acid 5.4 H* (0.5-2.0) mmol/L Lactic Acid F/U @ 2Hr (0.5-2.0) mmol/L Calcium 10.6 H D (8.4-10.2) mg/dL Total Bilirubin 0.7 (0.0-1.0) mg/dL AST 13 (5-37) U/L ALT 14 (0-40) U/L Alkaline Phosphatase 110 (39-117) U/L Troponin I High Sens < 2.7 (<3.5-35.0) ng/L B-Natriuretic Peptide (<100) pg/mL Total Protein 7.6 (6.5-8.0) g/dL Albumin 4.3 (3.5-5.0) g/dL Urine Color Urine Appearance Urine pH (5.0-9.0) Ur Specific Center Line (1.005-1.025) Urine Protein (Neg-Trace) mg/dL Urine Glucose (UA) (Negative) mg/dL Urine Ketones (Negative) mg/dL Urine Blood (Negative) Urine Nitrite (Negative) Ur Leukocyte Esterase (Negative) Urine RBC (0-2) /HPF Urine WBC (0-5) /HPF Ur Squamous Epith Cells (0-2) /HPF Urine Bacteria (None Seen) Hyaline Casts (0-2) /LPF Urine Yeast 02/20/23 02/20/23 02/20/23 Range/Units 02:07 02:07 02:10 WBC (4.8-10.8) X10*3/uL RBC (4.60-5.80) X10*6/uL Hgb (14.0-18.0) g/dl Hct (42.0-52.0) % MCV (80.0-98.0) fL MCH (27.0-33.0) pg MCHC (31.0-36.0) g/dl RDW (11.0-16.0) % Plt Count (160-400) X10*3/uL MPV (9.4-12.4) fL Immature Gran % (Auto) (0.0-0.4) % Neut % (Auto) (45-73) % Lymph % (Auto) (20-40) % [place] % (Auto) (2-11) % Eos % (Auto) (0-4) % Baso % (Auto) (0-2) % Lymph # (Auto) (1.2-4.9) X10*3/uL [place] # (Auto) (0.1-1.2) X10*3/uL Eos # (Auto) (0.0-0.4) X10*3/uL Baso # (Auto) (0.0-0.2) X10*3/uL Abs Immat Gran (auto) (0.00-0.03) X10*3/uL Absolute Neuts (auto) (2.0-8.3) x10*3/uL Absolute Nucleated RBC (0.0-0.012) X10*3/uL Nucleated RBC % (auto) (0.0-0.2) /100WBC PT 20.3 H (11.1-13.3) SEC INR 1.7 H (0.9-1.1) D-Dimer High Sensitivty NG/ML VBG pH 7.38 (7.32-7.43) VBG pCO2 28 mmHg VBG pO2 71 mmHg VBG HCO3 17 L (22-26) mmol/L VBG O2 Saturation 90.0 % VBG Base Excess -6.3 mmol/L Sodium (135-145) mmol/L Potassium (3.3-5.1) mmol/L Chloride (96-108) mmol/L Carbon Dioxide (22-29) mmol/L Anion Gap (12-20) BUN (9-16) mg/dL Creatinine (0.5-1.4) mg/dL Estim Creat Clear Calc Estimated GFR POC Glucose (60-115) mg/dL Random Glucose (60-115) mg/dL Lactic Acid (0.5-2.0) mmol/L Lactic Acid F/U @ 2Hr (0.5-2.0) mmol/L Calcium (8.4-10.2) mg/dL Total Bilirubin (0.0-1.0) mg/dL AST (5-37) U/L ALT (0-40) U/L Alkaline Phosphatase (39-117) U/L Troponin I High Sens (<3.5-35.0) ng/L B-Natriuretic Peptide 60 (<100) pg/mL Total Protein (6.5-8.0) g/dL Albumin (3.5-5.0) g/dL Urine Color Urine Appearance Urine pH (5.0-9.0) Ur Specific Center Line (1.005-1.025) Urine Protein (Neg-Trace) mg/dL Urine Glucose (UA) (Negative) mg/dL Urine Ketones (Negative) mg/dL Urine Blood (Negative) Urine Nitrite (Negative) Ur Leukocyte Esterase (Negative) Urine RBC (0-2) /HPF Urine WBC (0-5) /HPF Ur Squamous Epith Cells (0-2) /HPF Urine Bacteria (None Seen) Hyaline Casts (0-2) /LPF Urine Yeast 02/20/23 02/20/23 Range/Units 03:27 04:22 WBC (4.8-10.8) X10*3/uL RBC (4.60-5.80) X10*6/uL Hgb (14.0-18.0) g/dl Hct (42.0-52.0) % MCV (80.0-98.0) fL MCH (27.0-33.0) pg MCHC (31.0-36.0) g/dl RDW (11.0-16.0) % Plt Count (160-400) X10*3/uL MPV (9.4-12.4) fL Immature Gran % (Auto) (0.0-0.4) % Neut % (Auto) (45-73) % Lymph % (Auto) (20-40) % [place] % (Auto) (2-11) % Eos % (Auto) (0-4) % Baso % (Auto) (0-2) % Lymph # (Auto) (1.2-4.9) X10*3/uL [place] # (Auto) (0.1-1.2) X10*3/uL Eos # (Auto) (0.0-0.4) X10*3/uL Baso # (Auto) (0.0-0.2) X10*3/uL Abs Immat Gran (auto) (0.00-0.03) X10*3/uL Absolute Neuts (auto) (2.0-8.3) x10*3/uL Absolute Nucleated RBC (0.0-0.012) X10*3/uL Nucleated RBC % (auto) (0.0-0.2) /100WBC PT (11.1-13.3) SEC INR (0.9-1.1) D-Dimer High Sensitivty NG/ML VBG pH (7.32-7.43) VBG pCO2 mmHg VBG pO2 mmHg VBG HCO3 (22-26) mmol/L VBG O2 Saturation % VBG Base Excess mmol/L Sodium (135-145) mmol/L Potassium (3.3-5.1) mmol/L Chloride (96-108) mmol/L Carbon Dioxide (22-29) mmol/L Anion Gap (12-20) BUN (9-16) mg/dL Creatinine (0.5-1.4) mg/dL Estim Creat Clear Calc Estimated GFR POC Glucose (60-115) mg/dL Random Glucose (60-115) mg/dL Lactic Acid (0.5-2.0) mmol/L Lactic Acid F/U @ 2Hr 4.3 H* (0.5-2.0) mmol/L Calcium (8.4-10.2) mg/dL Total Bilirubin (0.0-1.0) mg/dL AST (5-37) U/L ALT (0-40) U/L Alkaline Phosphatase (39-117) U/L Troponin I High Sens (<3.5-35.0) ng/L B-Natriuretic Peptide (<100) pg/mL Total Protein (6.5-8.0) g/dL Albumin (3.5-5.0) g/dL Urine Color Yellow Urine Appearance Cloudy Urine pH 5.5 (5.0-9.0) Ur Specific Center Line >= 1.030 H (1.005-1.025) Urine Protein Negative (Neg-Trace) mg/dL Urine Glucose (UA) >=1000 H (Negative) mg/dL Urine Ketones Negative (Negative) mg/dL Urine Blood Negative (Negative) Urine Nitrite Negative (Negative) Ur Leukocyte Esterase Negative (Negative) Urine RBC 6-10 H (0-2) /HPF Urine WBC 11-20 H (0-5) /HPF Ur Squamous Epith Cells 0-2 (0-2) /HPF Urine Bacteria None Seen (None Seen) Hyaline Casts 0-2 (0-2) /LPF Urine Yeast Present Independent Interpretation I performed an independent interpretation of an: CT Scan (Abdomen and pelvis: Sigmoid volvulus.) Radiology Impression Discussion of test interpretation with radiology: I have reviewed the radiologist's reading. (Sigmoid volvulus with massive dilatation of the involved sigmoid colon measuring up to 12.4 cm in diameter, associated with large bowel obstruction. * No evidence of bowel ischemia at this time. * Cholelithiasis. * Dependently predominant patchy pulmonary parenchymal opacity suspicious for aspira) Critical Care Time Critical Care Time Critical Care Time: Yes Total Critical Care Time: 60 Attestation: I spent 60 minutes providing critical care service to the patient, this including time spent at the bedside to evaluate the patient, reassess the patient, monitoring vital signs, review labs, and radiographic studies, counseling the patient/family, discussing the case with consultants, disposition the patient. Discharge Plan Discharge Clinical Impression: Volvulus of sigmoid colon Patient Disposition: Admitted As Inpatient
[2023-02-20 02:32] LABS: Alanine Aminotransferase 14 U/L (0-40); Albumin Level 4.3 g/dL (3.5-5.0); Alkaline Phosphatase 110 U/L (39-117); Anion Gap 21 (12-20); Aspartate Amino Transferase 13 U/L (5-37); Bilirubin Total 0.7 mg/dL (0.0-1.0); Blood Urea Nitrogen 40 mg/dL (9-16); Calcium 10.6 mg/dL (8.4-10.2); Carbon Dioxide 16 mmol/L (22-29); Chloride 108 mmol/L (96-108); Creatinine Clr Calc Pharmacy 63.4; Estimated Glomerular Filt Rate 57; Glucose Random 296 mg/dL (60-115); Potassium 4.1 mmol/L (3.3-5.1); Sodium 141 mmol/L (135-145); Total Protein 7.6 g/dL (6.5-8.0)
[2023-02-20 02:35] LABS: Troponin-I High Sensitivity < 2.7 ng/L (<3.5-35.0)
--- NOTE | 2023-02-20 02:35 | ECG_ITS ---
Test Reason : REPEAT Blood Pressure : / mmHG Vent. Rate : 108 BPM Atrial Rate : 108 BPM P-R Int : 182 ms QRS Dur : 088 ms QT Int : 320 ms P-R-T Axes : 044 -16 016 degrees QTc Int : 428 ms Artifact in tracing Sinus tachycardia Inferior infarct , age undetermined Abnormal ECG When compared with ECG of 20-FEB-2023 02:10, Sinus rhythm has replaced Atrial fibrillation Vent. rate has decreased BY 70 BPM Inferior infarct is now Present Referred By: Anita Jansen Electronically Signed By:KATHY RECIO
[2023-02-20 02:36] LABS: Lactic Acid 5.4 mmol/L (0.5-2.0)
[2023-02-20] MEDS: 0.9 % Sodium Chloride 250 ML 999 ML IV (02:59)
[2023-02-20 03:33] LABS: Appearance Urine Cloudy; Color Urine Yellow; Glucose Urine UA >=1000 mg/dL (Negative); Leukocyte Esterase Urine Negative (Negative); Nitrite Urine Negative (Negative); PH 5.5 (5.0-9.0); Specific Gravity - Urine >= 1.030 (1.005-1.025); UMIC TRIGGER UACC YES; Urine Blood Negative (Negative); Urine Ketones Negative (Negative); Urine Protein Negative (Neg-Trace)
[2023-02-20 03:39] LABS: B Type Natriuretic Peptide 60 pg/mL (<100)
[2023-02-20] MEDS: Pantoprazole Sodium 40 MG/10 ML VIAL IVPUSH (03:41)
[2023-02-20] MEDS: Piperacillin Sodium/Tazobactam 3.375 GM in 0.9 % Sodium Chloride 50 ML IV ×4 (03:41→22:15)
[2023-02-20 03:46] LABS: Bacteria Urine None Seen (None Seen); Hyaline Casts Urine 0-2 /LPF (0-2); Squamous Epithelial Cell Urine 0-2 /HPF (0-2); UACC Culture Trigger YES
--- NOTE | 2023-02-20 03:47 | PC.NURSE ---
Addendum entered by Ayleen Sauceda RN 02/20/23 05:00: Urine output was 600ml not 800ml. Original Note: Assumed care of pt at approximately 0145, [facility] with c/o abdominal distention, SOB, O2 sats 80's on room air. upon arrival sats were 91-94% on 4L NC, pt Hr 160-180's, 2 IV lines placed,labs drawn, IV push metoprolol 5mg given X2 with positive effect, HR improved 100-110's f/u EKG showed ST, BP stable see vitals, PT has audible rhonchi and abdomen is round, hard and distended. MD ordered CXR and NG tube which was placed with coffee ground emesis drained initially 1100ml. Pt went to CT, and placed on non rebreather sats improved 96-98%. Major cath placed with initially drained 800ml. Red fungal area to groin, and red blanchable buttocks. Per pt is going for colonoscopy with , Lactic elevated, given IV fluids and antibiotics as well as pantoprazole.
[2023-02-20 04:12] LABS: Reflex Lactate? Lactic Acid Added
--- NOTE | 2023-02-20 04:27 | PC.NURSE ---
Patient appears uncomfortable, moaning. Patient confused, unable to rate his pain. RR 16. Dr. Jansen informed, verbal order obtained for Morphine 1 mg IV push.
[2023-02-20 04:41] LABS: ~Lactic Acid-LAB USE ONLY 4.3 mmol/L (0.5-2.0)
--- NOTE | 2023-02-20 04:44 | PM.GICN ---
History of Present Illness Data of Consult Service Date: 02/20/23 Requesting physician: Anita Jansen Primary Care Provider: Unknown Physician HPI Reason for consult: Sigmoid volvulus 62 YM with dementia, COPD, dm 2, dysphagia, dyskinesia, anemia, hypothyroidism, paranoid schizophrenia, CAD s/p CABG, history of TIA?sent from [facility] [place] [facility] [place] for evaluation of distended abdomen, SOB and hypoxia. Patient has a history of dementia and unable to provide any history, COPD, dm 2, dysphagia, dyskinesia, anemia, hypothyroidism, paranoid schizophrenia, CAD s/p CABG, history of TIA. Patient found in the emergency room with a markedly ditended abdomen with difficulty breathing and hypoxia, Patient with known history of atrial fibrillation with heart rate of 180s - controlled with IV metoprolol. Labs showed elevated WBC count of 19 K and elevated lactic acid levels. NG tube was passed and large amount of dark fluid was aspirated. 02/20/[address] SCAN SHOWED; *? Sigmoid volvulus with massive dilatation of the involved sigmoid colon measuring up to 12.4 cm in diameter, associated with large bowel obstruction. *? No evidence of bowel ischemia at this time. *? Cholelithiasis. *? Dependently predominant patchy pulmonary parenchymal opacity suspicious for aspiration. Multifocal pneumonia could also have this appearance. Review of Systems Review of Systems: Yes Unobtainable due to mental status Neurologic: Reports confusion Psychiatric: Psychiatric: Reports confusion [facility] Past Medical History Medical History (Updated 02/26/23 @ 10:31 by Galen Patton MD) Altered mental status Amblyopia, left eye Anemia Atherosclerotic heart disease of [place] coronary artery without angina pectoris Boutonniere deformity of finger Cognitive impairment COPD (chronic obstructive pulmonary disease) COVID-19 Dementia Drug induced subacute dyskinesia Dysphagia Encephalopathy Essential (primary) hypertension Exotropia, alternating, with A pattern Hyperlipidemia Hypermetropia of both eyes Hypothyroidism Palsy (spasm) of conjugate gaze Paranoid schizophrenia Personal history of transient ischemic attack (TIA), and cerebral infarction without residual deficits Ptosis of right eyelid Type 2 diabetes mellitus Surgical History Surgical History (Updated 02/24/23 @ 08:04 by Alanna Vargas PA-C) Presence of aortocoronary bypass graft Social History Social History Household Members: Unknown / Unable to assess Household Members Other:: [facility] Housing: Other Housing Other:: [facility] Do you presently have visiting nurse or other home services: No Unable to assess alcohol history related to: Unknown Patient Tobacco Use Status: Former Tobacco user Tobacco use type: Cigarette Years Smoked: SURAJ Use of substances other than those prescribed or required for medical reasons: No Currently Displaying Signs/Symptoms of Drug Intoxication Withdrawal: No Are you DNR?: No Advance Directives: Yes Advance Directives on File: Yes Advance Directives Date on File: 12/14/21 Do you have thoughts of harming others: None Do you have a plan to hurt others: No Plan service: No Current occupational status: disabled Meds Allergies Allergy/AdvReac Type Severity Reaction Status Date / Time No Known Allergies Allergy Unverified 04/05/20 19:36 [No Known Allergies*] Home Medications Medication Instructions Recorded Confirmed Last Taken Type aspirin 81 mg chewable tablet 81 mg PO DAILY 12/13/21 02/20/23 12/12/21 History atorvastatin 80 mg tablet 1 tab PO BEDTIME 12/13/21 02/20/23 12/12/21 History canagliflozin 100 mg tablet 1 tab PO DAILY 12/13/21 02/20/23 12/12/21 History (Invokana) clozapine 200 mg tablet 1 tab PO BEDTIME 12/13/21 02/20/23 12/12/21 History ferrous sulfate 325 mg (65 mg 325 mg PO DAILY@1700 12/13/21 02/20/23 12/12/21 History iron) tablet insulin glargine 100 unit/mL (3 20 unit subcut BEDTIME 12/13/21 02/20/23 12/12/21 History mL) subcutaneous pen (Lantus Solostar U-100 Insulin) lactulose 10 gram/15 mL oral 30 ml PO DAILY 12/13/21 02/20/23 12/12/21 History solution levothyroxine 75 mcg tablet 1 tab PO DAILY@0600 12/13/21 02/20/23 12/12/21 History linagliptin 5 mg tablet (Tradjenta) 1 tab PO DAILY 12/13/21 02/20/23 12/12/21 History omega 4-qhy-cnd-fish oil 1,000 mg 1 cap PO BID 12/13/21 02/20/23 12/12/21 History (120 mg-180 mg) capsule (Fish Oil) pantoprazole 40 mg tablet,delayed 1 tab PO BID@0630,1630 12/13/21 02/20/23 12/12/21 History release metformin 500 mg tablet 1,000 mg PO BID 12/27/22 02/20/23 Unknown History nicotine 7 mg/24 hr daily 1 patch transdermal Q24H PRN 12/27/22 02/20/23 Unknown History transdermal patch Smoking Cessation nystatin 100,000 unit/gram topical 1 appl topical BID 12/27/22 02/20/23 Unknown History powder sennosides 8.6 mg tablet (senna) 8.6 mg PO DAILY PRN Constipation 12/27/22 02/20/23 Unknown History metoprolol tartrate 25 mg tablet 12.5 mg PO BID 02/20/23 02/20/23 Unknown History zinc oxide 1 appl topical QSHIFT 02/20/23 02/20/23 Unknown History Physical Exam Vital Signs: Vital Signs: Last Vital Signs Temp 100.0 F 02/20/23 04:11 Pulse 117 H 02/20/23 04:03 Resp 30 H 02/20/23 04:03 BP 93/69 02/20/23 04:03 Pulse Ox 92 02/20/23 04:03 O2 Del Method Non-Rebreather Ma sk 02/20/23 04:03 O2 Flow Rate 6 02/20/23 02:24 BMI result Body Mass Index 24.7 Const: General: no acute distress, confusion, ill appearing and lethargic Nutritional Appearance: average body habitus Orientation/consciousness: confusion and lethargic Limitations: altered mental status and physical limitations HEENT: Head: Yes normal to inspection Eyes: Sclerae: sclerae normal Pupils: Equal, round and reactive pupils present Neck: Neck: Yes normal visual inspection Chest: Chest palpation & inspection: normal inspection of the chest Resp: Effort & Inspection: normal respiratory effort Auscultation: clear to auscultation bilaterally Cardio: Palpation: normal PMI Rate: regular rate Rhythm: regular rhythm Heart sounds: S1 normal heart sound present, S2 normal heart sound present and no murmurs GI: Inspection: Yes distended Palpation (GI): No hepatosplenomegaly present Auscultation: Hypoactive bowel sounds present Rectal Exam - Male: Yes deferred Skin: General skin exam: no rashes or lesions noted Neuro: General: confusion Cranial nerves: Yes Equal, round and reactive pupils present Psych: Appearance: disheveled Results Labs 02/20/23 02:07 02/20/23 02:07 Labs: Short CBC 02/20/23 Range/Units 02:07 WBC 19.2 H (4.8-10.8) X10*3/uL Hgb 14.7 (14.0-18.0) g/dl Hct 45.2 (42.0-52.0) % Plt Count 307 D (160-400) X10*3/uL BMP 02/20/23 02:07 Sodium 141 Potassium 4.1 Chloride 108 Carbon Dioxide 16 L BUN 40 H Creatinine 1.27 Calcium 10.6 H D Liver Function 02/20/23 Range/Units 02:07 Total Bilirubin 0.7 (0.0-1.0) mg/dL AST 13 (5-37) U/L ALT 14 (0-40) U/L Alkaline Phosphatase 110 (39-117) U/L Albumin 4.3 (3.5-5.0) g/dL Urine 02/20/23 Range/Units 03:27 Urine Color Yellow Urine Appearance Cloudy Urine pH 5.5 (5.0-9.0) Ur Specific [place] >= 1.030 H (1.005-1.025) Urine Protein Negative (Neg-Trace) mg/dL Urine Glucose (UA) >=1000 H (Negative) mg/dL Assessment and Plan (1) Volvulus of sigmoid colon: Status: Acute Plan 62 YM sent from [facility] [place] [facility] [place] for evaluation of distended abdomen, SOB and hypoxia. Patient has a history of dementia and unable to provide any history, COPD, dm 2, dysphagia, dyskinesia, anemia, hypothyroidism, paranoid schizophrenia, CAD s/p CABG, history of TIA. Patient found in the emergency room with a markedly ditended abdomen with difficulty breathing and hypoxia, NG tube was passed and large amount of dark fluid was aspirated. 02/20/[address] SCAN SHOWED; *? Sigmoid volvulus with massive dilatation of the involved sigmoid colon measuring up to 12.4 cm in diameter, associated with large bowel obstruction. *? No evidence of bowel ischemia at this time. *? Cholelithiasis. *? Dependently predominant patchy pulmonary parenchymal opacity suspicious for aspiration. Multifocal pneumonia could also have this appearance. RECOMMENDATIONS: 1. Proceed with urgent colonoscopy for reduction of sigmoid volvulus. Indications for the procedure and potential complications of bleeding, perforation, reaction to medications and missed diagnosis were discussed with Ke Shetty, patient's brother and HCP over the phone and informed verbal consent was obtained. Time Spent With Patient Time: Total time managing care of this patient today ____ minutes. Procedures Date of Service Date of Service: 02/26/23
--- NOTE | 2023-02-20 05:01 | PC.NURSE ---
Report given to DISPUTE RESOLUTION ANALYST. This RN will bring pt to OR. Pt resting will hold Morphine due to patient going to OR and will also receive anesthesia meds. Discussed with Dr. Gill and agreed to hold Morphine at this time.
--- NOTE | 2023-02-20 05:05 | P.CONAN_ITS ---
HPI - Anesthesia Eval Consult details Narrative: Sigmoid volvulus PMFSH Active Problems Active Problems: All Active Problems (Updated 01/05/23 @ 00:06 by Background Daemon) Open displaced fracture of nasal bone (Acute) Fracture of nasal septum (Acute) Past Medical History Medical History Altered mental status Amblyopia, left eye Anemia Atherosclerotic heart disease of [place] coronary artery without angina pectoris Boutonniere deformity of finger Cognitive impairment COPD (chronic obstructive pulmonary disease) COVID-19 Dementia Drug induced subacute dyskinesia Dysphagia Encephalopathy Essential (primary) hypertension Exotropia, alternating, with A pattern Hyperlipidemia Hypermetropia of both eyes Hypothyroidism Palsy (spasm) of conjugate gaze Paranoid schizophrenia Personal history of transient ischemic attack (TIA), and cerebral infarction without residual deficits Ptosis of right eyelid Type 2 diabetes mellitus Family History Family history of problems with anesthesia: No Surgical History Surgical History Presence of aortocoronary bypass graft History of Problems with Anesthesia: No Social History Social History Household Members: None Household Members Other:: [facility] Housing: [facility] Do you presently have visiting nurse or other home services: No Unable to assess alcohol history related to: Refusing to respond Patient Tobacco Use Status: Former Tobacco user Tobacco use type: Cigarette Years Smoked: SURAJ Advance Directives: Yes Advance Directives on File: Yes Advance Directives Date on File: 12/14/21 service: No Current occupational status: disabled Meds Allergies Allergy/AdvReac Type Severity Reaction Status Date / Time No Known Allergies Allergy Unverified 04/05/20 19:36 [No Known Allergies*] Home Medications Medication Instructions Recorded Confirmed Last Taken Type aspirin 81 mg chewable tablet 81 mg PO DAILY 12/13/21 12/27/22 12/12/21 History atorvastatin 80 mg tablet 1 tab PO DAILY 12/13/21 12/27/22 12/12/21 History canagliflozin 100 mg tablet 1 tab PO DAILY 12/13/21 12/27/22 12/12/21 History (Invokana) clozapine 200 mg tablet 1 tab PO BEDTIME 12/13/21 12/27/22 12/12/21 History dulaglutide 0.75 mg/0.5 mL 0.5 ml subcut TH 12/13/21 12/27/22 12/12/21 History subcutaneous pen injector (Trulicity) ferrous sulfate 325 mg (65 mg 325 mg PO DAILY 12/13/21 12/27/22 12/12/21 History iron) tablet insulin glargine 100 unit/mL (3 20 unit subcut BID 12/13/21 12/27/22 12/12/21 History mL) subcutaneous pen (Lantus Solostar U-100 Insulin) lactulose 10 gram/15 mL oral 30 ml PO DAILY 12/13/21 12/27/22 12/12/21 History solution levothyroxine 75 mcg tablet 1 tab PO DAILY 12/13/21 12/27/22 12/12/21 History linagliptin 5 mg tablet (Tradjenta) 1 tab PO DAILY 12/13/21 12/27/22 12/12/21 History omega 9-gpn-utd-fish oil 1,000 mg 1 cap PO BID 12/13/21 12/27/22 12/12/21 History (120 mg-180 mg) capsule (Fish Oil) pantoprazole 40 mg tablet,delayed 1 tab PO BID 12/13/21 12/27/22 12/12/21 History release metformin 500 mg tablet 500 mg PO BID 12/27/22 12/27/22 Unknown History nicotine 7 mg/24 hr daily 1 patch transdermal Q24H PRN 12/27/22 12/27/22 Unknown History transdermal patch Smoking Cessation nystatin 100,000 unit/gram topical 1 appl topical DAILY 12/27/22 12/27/22 Unknown History powder sennosides 8.6 mg tablet (senna) 8.6 mg PO DAILY PRN Constipation 12/27/22 12/27/22 Unknown History Exam Exam Date and Time: February 20, 2023 0505 Height,Weight and Vital Signs: Height 5 ft 11 in Weight 80.4 kg Last Vital Signs Temp 100.0 F 02/20/23 04:11 Pulse 117 H 02/20/23 04:03 Resp 30 H 02/20/23 04:03 BP 93/69 02/20/23 04:03 Pulse Ox 92 02/20/23 04:03 O2 Del Method Non-Rebreather Mask 02/20/23 04:03 O2 Flow Rate 6 02/20/23 02:24 Pertinent Lab Results Pertinent Lab Results: Laboratory Tests 02/20/23 02/20/23 02/20/23 01:56 02:07 02:07 WBC 19.2 H RBC 5.37 Hgb 14.7 Hct 45.2 MCV 84.2 MCH 27.4 MCHC 32.5 RDW 15.7 Plt Count 307 D MPV 10.9 Immature Gran % (Auto) 0.6 H Neut % (Auto) 83.6 H Lymph % (Auto) 8.3 L [place] % (Auto) 6.9 Eos % (Auto) 0.3 Baso % (Auto) 0.3 Lymph # (Auto) 1.6 [place] # (Auto) 1.3 H Eos # (Auto) 0.1 Baso # (Auto) 0.1 Abs Immat Gran (auto) 0.12 H Absolute Neuts (auto) 16.1 H Absolute Nucleated RBC 0.000 Nucleated RBC % (auto) 0.0 PT INR D-Dimer High Sensitivty 237 VBG pH VBG pCO2 VBG pO2 VBG HCO3 VBG O2 Saturation VBG Base Excess Sodium Potassium Chloride Carbon Dioxide Anion Gap BUN Creatinine Estim Creat Clear Calc Estimated GFR POC Glucose 273 H Random Glucose Lactic Acid Lactic Acid F/U @ 2Hr Calcium Total Bilirubin AST ALT Alkaline Phosphatase Troponin I High Sens B-Natriuretic Peptide Total Protein Albumin Urine Color Urine Appearance Urine pH Ur Specific [place] Urine Protein Urine Glucose (UA) Urine Ketones Urine Blood Urine Nitrite Ur Leukocyte Esterase Urine RBC Urine WBC Ur Squamous Epith Cells Urine Bacteria Hyaline Casts Urine Yeast 02/20/23 02/20/23 02/20/23 02:07 02:07 02:07 WBC RBC Hgb Hct MCV MCH MCHC RDW Plt Count MPV Immature Gran % (Auto) Neut % (Auto) Lymph % (Auto) [place] % (Auto) Eos % (Auto) Baso % (Auto) Lymph # (Auto) [place] # (Auto) Eos # (Auto) Baso # (Auto) Abs Immat Gran (auto) Absolute Neuts (auto) Absolute Nucleated RBC Nucleated RBC % (auto) PT INR D-Dimer High Sensitivty VBG pH VBG pCO2 VBG pO2 VBG HCO3 VBG O2 Saturation VBG Base Excess Sodium 141 Potassium 4.1 Chloride 108 Carbon Dioxide 16 L Anion Gap 21 H BUN 40 H Creatinine 1.27 Estim Creat Clear Calc 63.4 Estimated GFR 57 POC Glucose Random Glucose 296 H Lactic Acid 5.4 H* Lactic Acid F/U @ 2Hr Calcium 10.6 H D Total Bilirubin 0.7 AST 13 ALT 14 Alkaline Phosphatase 110 Troponin I High Sens < 2.7 B-Natriuretic Peptide Total Protein 7.6 Albumin 4.3 Urine Color Urine Appearance Urine pH Ur Specific [place] Urine Protein Urine Glucose (UA) Urine Ketones Urine Blood Urine Nitrite Ur Leukocyte Esterase Urine RBC Urine WBC Ur Squamous Epith Cells Urine Bacteria Hyaline Casts Urine Yeast 02/20/23 02/20/23 02/20/23 02:07 02:07 02:10 WBC RBC Hgb Hct MCV MCH MCHC RDW Plt Count MPV Immature Gran % (Auto) Neut % (Auto) Lymph % (Auto) [place] % (Auto) Eos % (Auto) Baso % (Auto) Lymph # (Auto) [place] # (Auto) Eos # (Auto) Baso # (Auto) Abs Immat Gran (auto) Absolute Neuts (auto) Absolute Nucleated RBC Nucleated RBC % (auto) PT 20.3 H INR 1.7 H D-Dimer High Sensitivty VBG pH 7.38 VBG pCO2 28 VBG pO2 71 VBG HCO3 17 L VBG O2 Saturation 90.0 VBG Base Excess -6.3 Sodium Potassium Chloride Carbon Dioxide Anion Gap BUN Creatinine Estim Creat Clear Calc Estimated GFR POC Glucose Random Glucose Lactic Acid Lactic Acid F/U @ 2Hr Calcium Total Bilirubin AST ALT Alkaline Phosphatase Troponin I High Sens B-Natriuretic Peptide 60 Total Protein Albumin Urine Color Urine Appearance Urine pH Ur Specific [place] Urine Protein Urine Glucose (UA) Urine Ketones Urine Blood Urine Nitrite Ur Leukocyte Esterase Urine RBC Urine WBC Ur Squamous Epith Cells Urine Bacteria Hyaline Casts Urine Yeast 02/20/23 02/20/23 03:27 04:22 WBC RBC Hgb Hct MCV MCH MCHC RDW Plt Count MPV Immature Gran % (Auto) Neut % (Auto) Lymph % (Auto) [place] % (Auto) Eos % (Auto) Baso % (Auto) Lymph # (Auto) [place] # (Auto) Eos # (Auto) Baso # (Auto) Abs Immat Gran (auto) Absolute Neuts (auto) Absolute Nucleated RBC Nucleated RBC % (auto) PT INR D-Dimer High Sensitivty VBG pH VBG pCO2 VBG pO2 VBG HCO3 VBG O2 Saturation VBG Base Excess Sodium Potassium Chloride Carbon Dioxide Anion Gap BUN Creatinine Estim Creat Clear Calc Estimated GFR POC Glucose Random Glucose Lactic Acid Lactic Acid F/U @ 2Hr 4.3 H* Calcium Total Bilirubin AST ALT Alkaline Phosphatase Troponin I High Sens B-Natriuretic Peptide Total Protein Albumin Urine Color Yellow Urine Appearance Cloudy Urine pH 5.5 Ur Specific [place] >= 1.030 H Urine Protein Negative Urine Glucose (UA) >=1000 H Urine Ketones Negative Urine Blood Negative Urine Nitrite Negative Ur Leukocyte Esterase Negative Urine RBC 6-10 H Urine WBC 11-20 H Ur Squamous Epith Cells 0-2 Urine Bacteria None Seen Hyaline Casts 0-2 Urine Yeast Present Airway Mallampati Class: II TM Dist: >3cm Neck ROM: Full Heart: RRR Lungs: CTA Assessment and Plan Assessment Anesthesia Assessment: Anesthesia Plan Discussed and Chart Reviewed Final Anesthetic Review Family History of Problems with Anesthesia: No History of Problems with Anesthesia: No NPO: No ASA Class: III and Emergency Final Preanesthetic Review: No Changes in Pt Med Stat, Meds/Allgs Chart Reviewed, Consent Obtained/Reviewed and Anes Risks/Benef Reviewed Patient Risk: High Procedure Risk: Low Anesthetic Plan Anesthetic Plan: GA Disposition: Standard PACU
--- NOTE | 2023-02-20 05:16 | PC.NURSE ---
Pt brought to [facility] in the OR.
--- NOTE | 2023-02-20 06:03 | W.PM.OPN ---
Operative Note Operative Note Date of Service: 02/20/23 Narrative: COLONOSCOPY TILL TRANSVERSE COLON WITH DETORSION OF SIGMOID VOVULUS Pre-op diagnosis: Abdominal distension due to sigmoid volvulus on CT scan Post-op diagnosis:?sigmoid volvulus, hemorrhoids Endoscopist:? Callie Gill MD Anesthesia:?MAC Consent: Indications for the procedure and potential complications of bleeding, perforation, reaction to medications and missed diagnosis were discussed with Ke Shetty, patient's brother and HCP over the phone and informed verbal consent was obtained. Instrument: Olympus CF H 190 L variable stiffness adult colonoscope Monitoring: Vital signs and clinical assessment, intermittent blood pressure monitoring, continuous EKG monitoring, Pulse oximetry and Carbon Dioxide monitoring were done throughout the procedure. Please see anesthesia flowsheet. Procedure: The patient was placed in the left lateral decubitis position and pre-procedure medications were administered. After a digital rectal examination of the ano-rectum, the video colonoscope was inserted into the rectum and advanced through the colon to 90 cms into the distal transverse colon. The colonoscope was slowly withdrawn in a retrograde panoramic fashion and the colon was suctioned and mucosa was examined including a retroflexed view of the rectum. 440 cc of cloudy fluid was suctioned. Findings and interventions are described below. Procedure Difficulty: LLQ pressure was applied to intubate the transverse colon Findings: Transverse Colon: Dilated colon with normal mucosa. Solid stools visualized in the proximal transverse colon. Descending Colon: Dilated colon with normal mucosa Sigmoid Colon: A twist in the colon noted at 22 cms in the distal sigmoid colon - detorsion was performed with gentle pressure of the colonoscope. Colon above the volvulus appeared dilated with air and fluid which was suctioned. Rectum: Normal Ano-rectum: Small internal hemorrhoids Colon preparation: Good Impression and Post Procedure Diagnosis: Colonoscopy Findings: A twist in the colon noted at 22 cms in the distal sigmoid colon - detorsion was performed with gentle pressure of the colonoscope. Colon above the volvulus appeared dilated with air and fluid which was suctioned. Small hemorrhoids on retroflexed exam. Plan: KUB ordered. Pt is being admitted to the Telemetry unit. Surgical evaluation for sigmoid resection to prevent recurrent volvulus in the future. Above findings were reviewed with the patient's brother, Ke Shetty at [phone].
--- NOTE | 2023-02-20 06:19 | PM.SEPSBOL4 ---
Sepsis Bolus Exclusion Sepsis Bolus Exclusion Date of Occurrence: 02/20/23 This patient met severe sepsis criteria due to the following condition(s):: Hypotension and Lactate>=4mmol/L In my clinical judgement the administration of 30 ml/kg of crystalloid would be detrimental to this patient due to the patient's following conditions:: NYHA class III or IV Heart Failure(symptoms with low exertion or rest) and Concern for fluid overload Replace the 30 mls/kg with (*zero amount not acceptable): *Note: One of the davila must be documented Crystalloids amount given in mls: (rate must be at least 150cc/hr): 250 At a rate of (must be > 125 cchr):: 250
[2023-02-20 06:26] LABS: Reflex Lactate? 2 Y
--- NOTE | 2023-02-20 08:11 | P.CONGS_ITS ---
History of Present Illness Consult details Consult date: 02/20/23 <Alanna Vargas PA-C - Last Filed: 02/20/23 13:19> Reason for consult: other (sigmoid volvulus) <Alanna Vargas PA-C - Last Filed: 02/20/23 13:19> Narrative: History obtained from EMR. 62-year-old male with extensive PMH of dementia, COPD, dm 2, dysphagia, dyskinesia, anemia, hypothyroidism, paranoid schizophrenia, CAD s/p CABG, history of TIA came in from [facility] for evaluation of distended abdomen and hypoxia. Patient was found in the emergency room to have significant abdominal distension and difficulty breathing, hypoxia secondary to severe abdominal distension. Work up included a CT scan which showed sigmoid volvulus with massive dilatation of the involved sigmoid colon measuring up to 12.4 cm in diameter, associated with large bowel obstruction with lactic acidosis of 5.4. NGT was inserted for decompression. He was admitted to the medical service and underwent emergent colonoscopy with detorsion of the sigmoid volvulus. He was also found to have severe sepsis, acute hypoxic respiratory failure and acute metabolic encephalopathy due to aspiration pneumonia. IV zosyn has been initiated. Surgery is consulted for possible sigmoid resection to prevent recurrence. Patient evaluated on the floor following colonoscopy. Remains obtunded and unable to answer questions, obtain ROS. <Alanna Vargas PA-C - Last Filed: 02/20/23 13:19> [facility] Past Medical History Medical History: Medical History Altered mental status Amblyopia, left eye Anemia Atherosclerotic heart disease of [place] coronary artery without angina pectoris Boutonniere deformity of finger Cognitive impairment COPD (chronic obstructive pulmonary disease) COVID-19 Dementia Drug induced subacute dyskinesia Dysphagia Encephalopathy Essential (primary) hypertension Exotropia, alternating, with A pattern Hyperlipidemia Hypermetropia of both eyes Hypothyroidism Palsy (spasm) of conjugate gaze Paranoid schizophrenia Personal history of transient ischemic attack (TIA), and cerebral infarction without residual deficits Ptosis of right eyelid Type 2 diabetes mellitus <Alanna Vargas PA-C - Last Filed: 02/20/23 13:19> Surgical History Surgical History: Surgical History Presence of aortocoronary bypass graft <COLTON Puentes Last Filed: 02/20/23 13:19> Social History Social History: Social History Household Members: Unknown / Unable to assess Household Members Other:: [facility] Housing: Other Housing Other:: [facility] Do you presently have visiting nurse or other home services: No Unable to assess alcohol history related to: Unknown Patient Tobacco Use Status: Former Tobacco user Tobacco use type: Cigarette Years Smoked: SURAJ Use of substances other than those prescribed or required for medical reasons: Unable to respond Advance Directives: Yes Advance Directives on File: Yes Advance Directives Date on File: 12/14/21 Do you have thoughts of harming others: None Do you have a plan to hurt others: No Plan service: No Current occupational status: disabled <COLTON Puentes Last Filed: 02/20/23 13:19> Meds Allergies/Adverse reactions: Allergies Allergy/AdvReac Type Severity Reaction Status Date / Time No Known Allergies Allergy Unverified 04/05/20 19:36 [No Known Allergies*] <COLTON Puentes Last Filed: 02/20/23 13:19> Active Medications: Current Medications Dextrose (Dextrose 50 % 25 Gm/50 Ml Syringe) 25 gm IVPUSH Q15M PRN; Protocol PRN Reason: per Hypoglycemia Standing Ord. Fentanyl (Fentanyl Citrate/Pf 100 Mcg/2 Ml Vial) 25 mcg IVPUSH Q5M PRN; Protocol PRN Reason: Pain, Moderate(Pain Scale 4-6) Glucose (Glucose Gel 15 Gm Gel..Gram.) 15 gm PO Q15M PRN; Protocol PRN Reason: per Hypoglycemia Standing Ord. Insulin Human Lispro (Insulin Lispro 100 Unit/Ml 3 Ml Vial) 0 unit SUBCUT QIDACHS [facility]; Protocol Ondansetron HCl (Ondansetron Hcl 4 Mg/2 Ml Vial) 4 mg IVPUSH ONCE PRN PRN Reason: Nausea and Vomiting Pharmacy Consult (Consult Rx Perform Med Rec) 1 each MISCELLANE ONCE PRN PRN Reason: Consult order <COLTON Puentes Last Filed: 02/20/23 13:19> Home medications: Home Medications Medication Instructions Recorded Confirmed Last Taken Type aspirin 81 mg chewable tablet 81 mg PO DAILY 12/13/21 02/20/23 12/12/21 History atorvastatin 80 mg tablet 1 tab PO BEDTIME 12/13/21 02/20/23 12/12/21 History canagliflozin 100 mg tablet 1 tab PO DAILY 12/13/21 02/20/23 12/12/21 History (Invokana) clozapine 200 mg tablet 1 tab PO BEDTIME 12/13/21 02/20/23 12/12/21 History ferrous sulfate 325 mg (65 mg 325 mg PO DAILY@1700 12/13/21 02/20/23 12/12/21 History iron) tablet insulin glargine 100 unit/mL (3 20 unit subcut BEDTIME 12/13/21 02/20/23 12/12/21 History mL) subcutaneous pen (Lantus Solostar U-100 Insulin) lactulose 10 gram/15 mL oral 30 ml PO DAILY 12/13/21 02/20/23 12/12/21 History solution levothyroxine 75 mcg tablet 1 tab PO DAILY@0600 12/13/21 02/20/23 12/12/21 History linagliptin 5 mg tablet (Tradjenta) 1 tab PO DAILY 12/13/21 02/20/23 12/12/21 History omega 0-zep-aen-fish oil 1,000 mg 1 cap PO BID 12/13/21 02/20/23 12/12/21 History (120 mg-180 mg) capsule (Fish Oil) pantoprazole 40 mg tablet,delayed 1 tab PO BID@0630,1630 12/13/21 02/20/23 12/12/21 History release metformin 500 mg tablet 1,000 mg PO BID 12/27/22 02/20/23 Unknown History nicotine 7 mg/24 hr daily 1 patch transdermal Q24H PRN 12/27/22 02/20/23 Unknown History transdermal patch Smoking Cessation nystatin 100,000 unit/gram topical 1 appl topical BID 12/27/22 02/20/23 Unknown History powder sennosides 8.6 mg tablet (senna) 8.6 mg PO DAILY PRN Constipation 12/27/22 02/20/23 Unknown History metoprolol tartrate 25 mg tablet 12.5 mg PO BID 02/20/23 02/20/23 Unknown History zinc oxide 1 appl topical QSHIFT 02/20/23 02/20/23 Unknown History <COLTON Puentes Last Filed: 02/20/23 13:19> Physical Exam Vital Signs: Vital Signs: Last Vital Signs Temp 97.5 F 02/20/23 06:15 Pulse 103 H 02/20/23 07:00 Resp 23 H 02/20/23 07:00 BP 115/72 02/20/23 07:00 Pulse Ox 94 02/20/23 07:00 O2 Del Method Nasal Cannula wit h Capnography 02/20/23 07:00 O2 Flow Rate 4 02/20/23 07:00 BMI result Body Mass Index 24.7 <Alanna Vargas PA-C - Last Filed: 02/20/23 13:19> Const: General: no acute distress <COLTON Puentes Last Filed: 02/20/23 13:19> Resp: Effort & Inspection: normal respiratory effort <COLTON Puentes Last Filed: 02/20/23 13:19> Cardio: Rate: tachycardic <COLTON Puentes Last Filed: 02/20/23 13:19> GI: Inspection: Yes distended and Yes scar (umbilicus, consistent with hx of umbilical hernia repair ) <COLTON Puentes Last Filed: 02/20/23 13:19> Palpation (GI): Soft to palpation, nontender, no guarding and not rigid <COLTON Puentes Last Filed: 02/20/23 13:19> Percussion: Yes tympanic to percussion <COLTON Puentes Last Filed: 02/20/23 13:19> Skin: General skin exam: no rashes or lesions noted <COLTON Puentes Last Filed: 02/20/23 13:19> Extrem: General: Yes no clubbing, cyanosis or edema <COLTON Puentes Last Filed: 02/20/23 13:19> Results Labs Result diagrams: 02/20/23 02:07 02/20/23 02:07 <Alanna Vargas PA-C - Last Filed: 02/20/23 13:19> Labs: Abnormal lab results 02/20/23 02/20/23 02/20/23 Range/Units 01:56 02:07 02:07 WBC 19.2 H (4.8-10.8) X10*3/uL Immature Gran % (Auto) 0.6 H (0.0-0.4) % Neut % (Auto) 83.6 H (45-73) % Lymph % (Auto) 8.3 L (20-40) % [place] # (Auto) 1.3 H (0.1-1.2) X10*3/uL Abs Immat Gran (auto) 0.12 H (0.00-0.03) X10*3/uL Absolute Neuts (auto) 16.1 H (2.0-8.3) x10*3/uL PT (11.1-13.3) SEC INR (0.9-1.1) VBG HCO3 (22-26) mmol/L Carbon Dioxide 16 L (22-29) mmol/L Anion Gap 21 H (12-20) BUN 40 H (9-16) mg/dL POC Glucose 273 H (60-115) mg/dL Random Glucose 296 H (60-115) mg/dL Lactic Acid (0.5-2.0) mmol/L Lactic Acid F/U @ 2Hr (0.5-2.0) mmol/L Calcium 10.6 H D (8.4-10.2) mg/dL Ur Specific Ross (1.005-1.025) Urine Glucose (UA) (Negative) mg/dL Urine RBC (0-2) /HPF Urine WBC (0-5) /HPF 02/20/23 02/20/23 02/20/23 Range/Units 02:07 02:07 02:10 WBC (4.8-10.8) X10*3/uL Immature Gran % (Auto) (0.0-0.4) % Neut % (Auto) (45-73) % Lymph % (Auto) (20-40) % [place] # (Auto) (0.1-1.2) X10*3/uL Abs Immat Gran (auto) (0.00-0.03) X10*3/uL Absolute Neuts (auto) (2.0-8.3) x10*3/uL PT 20.3 H (11.1-13.3) SEC INR 1.7 H (0.9-1.1) VBG HCO3 17 L (22-26) mmol/L Carbon Dioxide (22-29) mmol/L Anion Gap (12-20) BUN (9-16) mg/dL POC Glucose (60-115) mg/dL Random Glucose (60-115) mg/dL Lactic Acid 5.4 H* (0.5-2.0) mmol/L Lactic Acid F/U @ 2Hr (0.5-2.0) mmol/L Calcium (8.4-10.2) mg/dL Ur Specific Ross (1.005-1.025) Urine Glucose (UA) (Negative) mg/dL Urine RBC (0-2) /HPF Urine WBC (0-5) /HPF 02/20/23 02/20/23 Range/Units 03:27 04:22 WBC (4.8-10.8) X10*3/uL Immature Gran % (Auto) (0.0-0.4) % Neut % (Auto) (45-73) % Lymph % (Auto) (20-40) % [place] # (Auto) (0.1-1.2) X10*3/uL Abs Immat Gran (auto) (0.00-0.03) X10*3/uL Absolute Neuts (auto) (2.0-8.3) x10*3/uL PT (11.1-13.3) SEC INR (0.9-1.1) VBG HCO3 (22-26) mmol/L Carbon Dioxide (22-29) mmol/L Anion Gap (12-20) BUN (9-16) mg/dL POC Glucose (60-115) mg/dL Random Glucose (60-115) mg/dL Lactic Acid (0.5-2.0) mmol/L Lactic Acid F/U @ 2Hr 4.3 H* (0.5-2.0) mmol/L Calcium (8.4-10.2) mg/dL Ur Specific Ross >= 1.030 H (1.005-1.025) Urine Glucose (UA) >=1000 H (Negative) mg/dL Urine RBC 6-10 H (0-2) /HPF Urine WBC 11-20 H (0-5) /HPF Short CBC 02/20/23 Range/Units 02:07 WBC 19.2 H (4.8-10.8) X10*3/uL Hgb 14.7 (14.0-18.0) g/dl Hct 45.2 (42.0-52.0) % Plt Count 307 D (160-400) X10*3/uL BMP 02/20/23 02:07 Sodium 141 Potassium 4.1 Chloride 108 Carbon Dioxide 16 L BUN 40 H Creatinine 1.27 Calcium 10.6 H D Liver Function 02/20/23 Range/Units 02:07 Total Bilirubin 0.7 (0.0-1.0) mg/dL AST 13 (5-37) U/L ALT 14 (0-40) U/L Alkaline Phosphatase 110 (39-117) U/L Albumin 4.3 (3.5-5.0) g/dL Urine 02/20/23 Range/Units 03:27 Urine Color Yellow Urine Appearance Cloudy Urine pH 5.5 (5.0-9.0) Ur Specific Ross >= 1.030 H (1.005-1.025) Urine Protein Negative (Neg-Trace) mg/dL Urine Glucose (UA) >=1000 H (Negative) mg/dL All other labs normal. <Alanna Vargas PA-C - Last Filed: 02/20/23 13:19> Imaging Abdomen CT scan report/results: report reviewed and image reviewed <COLTON Puentes Last Filed: 02/20/23 13:19> Assessment and Plan (1) Volvulus of sigmoid colon: Status: Acute <Alanna Vargas PA-C - Last Filed: 02/20/23 13:19> 62-year-old male with extensive PMH from [facility] for evaluation of distended abdomen and hypoxia found to have sigmoid volvulus, severe sepsis, acute hypoxic respiratory failure and acute metabolic encephalopathy from aspiration PNA. He is now s/p colonoscopy, detorsion of sigmoid volvuvus. Abdomen remains distended but benign without any peritoneal signs. If patient recurs or if family would like, can consider sigmoid resection with end colostomy. Because the patient is senior care bound, this actually may prove to be more hygienic in that the patient will not soil himself and also will not have a recurrence of the sigmoid volvulus. <Alanna Vargas PA-C - Last Filed: 02/20/23 13:19> 62-year-old male with extensive PMH from [facility] for evaluation of distended abdomen and hypoxia found to have sigmoid volvulus, severe sepsis, acute hypoxic respiratory failure and acute metabolic encephalopathy from aspiration PNA. He is now s/p colonoscopy, detorsion of sigmoid volvuvus. Abdomen remains distended but benign without any peritoneal signs. If patient recurs or if family would like, can not consideration can be had for resection with end colostomy. Because the patient is senior care bound, this actually may prove to be more hygienic in that the patient will not soil himself and also will not have a recurrence of the sigmoid volvulus. <Tim Mensah MD - Last Filed: 02/20/23 12:13> Time Spent With Patient Time: Total time managing care of this patient today ____ minutes. <Alanna Vargas PA-C - Last Filed: 02/20/23 13:19> Procedures Date of Service Date of Service: 02/20/23 <Alanna Vargas PA-C - Last Filed: 02/20/23 13:19> 02/20/23 <Tim Mensah MD - Last Filed: 02/20/23 12:13>
[2023-02-20 08:14] LABS: Glucose, Whole Blood 152 mg/dL (60-115)
--- NOTE | 2023-02-20 08:47 | MHC.CM.PN ---
PATIENT IS ASLEEP AND NOT WAKING TO ATTEMPTS TO SPEAK WITH. CALL TO HCP/DAD, LISA @ [phone] (ON FILE AND VERIFIED) PATIENT LIVES AT [facility]. PLAN IS FOR POSSIBLE RESECTION AND THEN RETURN TO FACILITY. REFERRAL PLACED FOR FACILITY TO FOLLOW. IMM 02/20 DISCUSSED. COPY IN CHART AND ORIGINAL TO RETURN TO FACILITY WITH PATIENT (PER DISCUSSION).
--- NOTE | 2023-02-20 08:56 | PM.IMHP ---
History of Present Illness Date of Service: 02/20/23 Chief Complaint: abd pain 62M PMH CAD s/p CABG, paroxysmal afib, COPD, DM2, paranoid schizophrenia, hypothyroid, [facility] presented with abdominal pain, distension, hypoxia. patient unable to provide history. was brought in by ambulance after noticing abdominal distension by staff. hypoxia with o2 sats in the high 80s, in ED noted to have sigmoid volvulus, was taken to OR for sigmoidoscopy, detorsion performed. Review of Systems Review of Systems: Yes Unobtainable due to mental condition [facility] Medical History Altered mental status Amblyopia, left eye Anemia Atherosclerotic heart disease of [place] coronary artery without angina pectoris Boutonniere deformity of finger Cognitive impairment COPD (chronic obstructive pulmonary disease) COVID-19 Dementia Drug induced subacute dyskinesia Dysphagia Encephalopathy Essential (primary) hypertension Exotropia, alternating, with A pattern Hyperlipidemia Hypermetropia of both eyes Hypothyroidism Palsy (spasm) of conjugate gaze Paranoid schizophrenia Personal history of transient ischemic attack (TIA), and cerebral infarction without residual deficits Ptosis of right eyelid Type 2 diabetes mellitus Surgical History Presence of aortocoronary bypass graft Social History Household Members: Unknown / Unable to assess Household Members Other:: [facility] Housing: Other Housing Other:: [facility] Do you presently have visiting nurse or other home services: No Unable to assess alcohol history related to: Unknown Patient Tobacco Use Status: Former Tobacco user Tobacco use type: Cigarette Years Smoked: SURAJ Use of substances other than those prescribed or required for medical reasons: Unable to respond Advance Directives: Yes Advance Directives on File: Yes Advance Directives Date on File: 12/14/21 Do you have thoughts of harming others: None Do you have a plan to hurt others: No Plan service: No Current occupational status: disabled Meds Allergies Allergy/AdvReac Type Severity Reaction Status Date / Time No Known Allergies Allergy Unverified 04/05/20 19:36 [No Known Allergies*] Active Medications: Current Medications Dextrose (Dextrose 50 % 25 Gm/50 Ml Syringe) 25 gm IVPUSH Q15M PRN; Protocol PRN Reason: per Hypoglycemia Standing Ord. Glucose (Glucose Gel 15 Gm Gel..Gram.) 15 gm PO Q15M PRN; Protocol PRN Reason: per Hypoglycemia Standing Ord. Piperacillin Sod/Tazobactam (Sod 3.375 gm/ Sodium Chloride) 50 mls @ 100 mls/hr IV Q6H [facility] Insulin Human Lispro (Insulin Lispro 100 Unit/Ml 3 Ml Vial) 0 unit SUBCUT QIDACHS [facility]; Protocol Metoprolol Tartrate (Metoprolol Tartrate 5 Mg/5 Ml Vial) 5 mg IVPUSH Q6H PRN PRN Reason: Heart Rate >100 Ondansetron HCl (Ondansetron Hcl 4 Mg/2 Ml Vial) 4 mg IVPUSH ONCE PRN PRN Reason: Nausea and Vomiting Pharmacy Consult (Consult Rx Perform Med Rec) 1 each MISCELLANE ONCE PRN PRN Reason: Consult order Sodium Chloride (0.9 % Sodium Chloride Flush 3 Ml Syringe) [facility] Medications Medication Instructions Recorded Confirmed Last Taken Type aspirin 81 mg chewable tablet 81 mg PO DAILY 12/13/21 12/27/22 12/12/21 History atorvastatin 80 mg tablet 1 tab PO DAILY 12/13/21 12/27/22 12/12/21 History canagliflozin 100 mg tablet 1 tab PO DAILY 12/13/21 12/27/22 12/12/21 History (Invokana) clozapine 200 mg tablet 1 tab PO BEDTIME 12/13/21 12/27/22 12/12/21 History dulaglutide 0.75 mg/0.5 mL 0.5 ml subcut TH 12/13/21 12/27/22 12/12/21 History subcutaneous pen injector (Trulicity) ferrous sulfate 325 mg (65 mg 325 mg PO DAILY 12/13/21 12/27/22 12/12/21 History iron) tablet insulin glargine 100 unit/mL (3 20 unit subcut BID 12/13/21 12/27/22 12/12/21 History mL) subcutaneous pen (Lantus Solostar U-100 Insulin) lactulose 10 gram/15 mL oral 30 ml PO DAILY 12/13/21 12/27/22 12/12/21 History solution levothyroxine 75 mcg tablet 1 tab PO DAILY 12/13/21 12/27/22 12/12/21 History linagliptin 5 mg tablet (Tradjenta) 1 tab PO DAILY 12/13/21 12/27/22 12/12/21 History omega 1-hba-gug-fish oil 1,000 mg 1 cap PO BID 12/13/21 12/27/22 12/12/21 History (120 mg-180 mg) capsule (Fish Oil) pantoprazole 40 mg tablet,delayed 1 tab PO BID 12/13/21 12/27/22 12/12/21 History release metformin 500 mg tablet 500 mg PO BID 12/27/22 12/27/22 Unknown History nicotine 7 mg/24 hr daily 1 patch transdermal Q24H PRN 12/27/22 12/27/22 Unknown History transdermal patch Smoking Cessation nystatin 100,000 unit/gram topical 1 appl topical DAILY 12/27/22 12/27/22 Unknown History powder sennosides 8.6 mg tablet (senna) 8.6 mg PO DAILY PRN Constipation 12/27/22 12/27/22 Unknown History Physical Exam Vital Signs and Narrative: Vital Signs: Last Vital Signs Temp 97.1 F 02/20/23 08:00 Pulse 102 H 02/20/23 08:00 Resp 20 02/20/23 08:00 BP 136/69 02/20/23 08:00 Pulse Ox 91 L 02/20/23 08:00 O2 Del Method Nasal Cannula 02/20/23 08:00 O2 Flow Rate 4 02/20/23 08:00 BMI result Body Mass Index 24.7 obtunded, non verbal, crackles bilateral, rapid rhthyem, ngt in place, abd distended Results Labs 02/20/23 02:07 02/20/23 02:07 Labs: Laboratory Results - last 24 hr 02/20/23 02/20/23 02/20/23 01:56 02:07 02:07 MCV 84.2 MCH 27.4 MCHC 32.5 RDW 15.7 Plt Count 307 D MPV 10.9 Immature Gran % (Auto) 0.6 H Neut % (Auto) 83.6 H Lymph % (Auto) 8.3 L [place] % (Auto) 6.9 Eos % (Auto) 0.3 Baso % (Auto) 0.3 Lymph # (Auto) 1.6 [place] # (Auto) 1.3 H Eos # (Auto) 0.1 Baso # (Auto) 0.1 Abs Immat Gran (auto) 0.12 H Absolute Neuts (auto) 16.1 H Absolute Nucleated RBC 0.000 Nucleated RBC % (auto) 0.0 PT INR D-Dimer High Sensitivty 237 VBG pH VBG pCO2 VBG pO2 VBG HCO3 VBG O2 Saturation VBG Base Excess Anion Gap Estim Creat Clear Calc Estimated GFR POC Glucose 273 H Random Glucose Lactic Acid Lactic Acid F/U @ 2Hr Calcium Total Bilirubin AST ALT Alkaline Phosphatase B-Natriuretic Peptide Total Protein Albumin Urine Color Urine Appearance Urine pH Ur Specific Fletcher Urine Protein Urine Glucose (UA) Urine Ketones Urine Blood Urine Nitrite Ur Leukocyte Esterase Urine RBC Urine WBC Ur Squamous Epith Cells Urine Bacteria Hyaline Casts Urine Yeast 02/20/23 02/20/23 02/20/23 02:07 02:07 02:07 MCV MCH MCHC RDW Plt Count MPV Immature Gran % (Auto) Neut % (Auto) Lymph % (Auto) [place] % (Auto) Eos % (Auto) Baso % (Auto) Lymph # (Auto) [place] # (Auto) Eos # (Auto) Baso # (Auto) Abs Immat Gran (auto) Absolute Neuts (auto) Absolute Nucleated RBC Nucleated RBC % (auto) PT 20.3 H INR 1.7 H D-Dimer High Sensitivty VBG pH VBG pCO2 VBG pO2 VBG HCO3 VBG O2 Saturation VBG Base Excess Anion Gap 21 H Estim Creat Clear Calc 63.4 Estimated GFR 57 POC Glucose Random Glucose 296 H Lactic Acid 5.4 H* Lactic Acid F/U @ 2Hr Calcium 10.6 H D Total Bilirubin 0.7 AST 13 ALT 14 Alkaline Phosphatase 110 B-Natriuretic Peptide Total Protein 7.6 Albumin 4.3 Urine Color Urine Appearance Urine pH Ur Specific Fletcher Urine Protein Urine Glucose (UA) Urine Ketones Urine Blood Urine Nitrite Ur Leukocyte Esterase Urine RBC Urine WBC Ur Squamous Epith Cells Urine Bacteria Hyaline Casts Urine Yeast 02/20/23 02/20/23 02/20/23 02:07 02:10 03:27 MCV MCH MCHC RDW Plt Count MPV Immature Gran % (Auto) Neut % (Auto) Lymph % (Auto) [place] % (Auto) Eos % (Auto) Baso % (Auto) Lymph # (Auto) [place] # (Auto) Eos # (Auto) Baso # (Auto) Abs Immat Gran (auto) Absolute Neuts (auto) Absolute Nucleated RBC Nucleated RBC % (auto) PT INR D-Dimer High Sensitivty VBG pH 7.38 VBG pCO2 28 VBG pO2 71 VBG HCO3 17 L VBG O2 Saturation 90.0 VBG Base Excess -6.3 Anion Gap Estim Creat Clear Calc Estimated GFR POC Glucose Random Glucose Lactic Acid Lactic Acid F/U @ 2Hr Calcium Total Bilirubin AST ALT Alkaline Phosphatase B-Natriuretic Peptide 60 Total Protein Albumin Urine Color Yellow Urine Appearance Cloudy Urine pH 5.5 Ur Specific Fletcher >= 1.030 H Urine Protein Negative Urine Glucose (UA) >=1000 H Urine Ketones Negative Urine Blood Negative Urine Nitrite Negative Ur Leukocyte Esterase Negative Urine RBC 6-10 H Urine WBC 11-20 H Ur Squamous Epith Cells 0-2 Urine Bacteria None Seen Hyaline Casts 0-2 Urine Yeast Present 02/20/23 02/20/23 04:22 08:11 MCV MCH MCHC RDW Plt Count MPV Immature Gran % (Auto) Neut % (Auto) Lymph % (Auto) [place] % (Auto) Eos % (Auto) Baso % (Auto) Lymph # (Auto) [place] # (Auto) Eos # (Auto) Baso # (Auto) Abs Immat Gran (auto) Absolute Neuts (auto) Absolute Nucleated RBC Nucleated RBC % (auto) PT INR D-Dimer High Sensitivty VBG pH VBG pCO2 VBG pO2 VBG HCO3 VBG O2 Saturation VBG Base Excess Anion Gap Estim Creat Clear Calc Estimated GFR POC Glucose 152 H Random Glucose Lactic Acid Lactic Acid F/U @ 2Hr 4.3 H* Calcium Total Bilirubin AST ALT Alkaline Phosphatase B-Natriuretic Peptide Total Protein Albumin Urine Color Urine Appearance Urine pH Ur Specific Fletcher Urine Protein Urine Glucose (UA) Urine Ketones Urine Blood Urine Nitrite Ur Leukocyte Esterase Urine RBC Urine WBC Ur Squamous Epith Cells Urine Bacteria Hyaline Casts Urine Yeast Imaging Radiologist's Impressions: Impressions Chest X-Ray 02/20/23 02:20 IMPRESSION: * Low lung volumes and bibasilar subsegmental atelectasis. * Right midlung streaky opacity could represent atelectasis or infiltrate. * Sigmoid volvulus. * No pneumatosis or supine radiographic evidence of intraperitoneal free air. This critical result was discussed with Dr Jansen at 02/20/2023 3:19 AM and it was ascertained that the content and urgency of the report was understood at the time of direct communication. Abdomen/Pelvis CT 02/20/23 03:26 IMPRESSION: * Sigmoid volvulus with massive dilatation of the involved sigmoid colon measuring up to 12.4 cm in diameter, associated with large bowel obstruction. * No evidence of bowel ischemia at this time. * Cholelithiasis. * Dependently predominant patchy pulmonary parenchymal opacity suspicious for aspiration. Multifocal pneumonia could also have this appearance. This critical result was discussed with Dr Jansen at 02/20/2023 3:19 AM and it was ascertained that the content and urgency of the report was understood at the time of direct communication. KUB X-Ray 02/20/23 06:36 FINDINGS/IMPRESSION: No change in appearance of the sigmoid volvulus with markedly dilated hollow viscus in the right hemiabdomen. Is this a left lateral decubitus image ? No free air. Moderate stool throughout the remainder of the colon upstream from the volvulus. Enteric tube terminates in the stomach. Assessment and Plan (1) Volvulus of sigmoid colon: Status: Acute Plan 62M PMH CAD s/p CABG, paroxysmal afib, COPD, DM2, paranoid schizophrenia, hypothyroid, [facility] presented with abdominal pain, distension, hypoxia acute sigmoid volvulus s/p detorsion NGT, ivf, surgery eval severe sepsis and acute hypoxic respiratory failure and acute metabolic encephalopathy due to aspiration pneumonia iv zosyn, wean o2 as tolerated paroxysmal afib with rvr iv lopressor holding eliquis for now DM insulin CAD holding eliquis for possible surgery asa and statin when taking po hypothryoid synthroid paranoid schizophrenia holding meds while obtunded dvt prophylaxis - lovenox while holding eliquis for possible surgery full code patient with multiple severe acute conditions including hypoxia, sepsis, vollvulus, likely to require atleast 2 midnights inpatient Time Spent With Patient Time: Total time managing care of this patient today ____ minutes. Quality Stroke Does the patient have a stroke diagnosis?: No VTE Prior VTE?: No VTE Risk Level:: Medical - moderate - high VTE Device Contraindication: Treatment Not Indicated VTE Drug Contraindication: N/A - Med Ordered
[2023-02-20] MEDS: Insulin Lispro 100 UNIT/ML 3 ML VIAL SUBCUT (09:03)
--- NOTE | 2023-02-20 10:45 | PHA.MEDREC ---
Pharmacy Consult ? Medication Reconciliation Pharmacy has completed the medication reconciliation. Med rec complete using list from [facility].
[2023-02-20] MEDS: 0.9 % Sodium Chloride 1,000 ML 50 ML IVCONT (11:05)
[2023-02-20 11:13] LABS: Glucose, Whole Blood 117 mg/dL (60-115)
[2023-02-20] MEDS: dilTIAZem HCL 125 MG in 0.9 % Sodium Chloride 100 ML 10 MG IVCONT (14:46)
[2023-02-20] MEDS: 0.9 % Sodium Chloride Flush 3 ML SYRINGE IVFLUSH (14:58)
[2023-02-20 16:08] LABS: Glucose, Whole Blood 88 mg/dL (60-115)
[2023-02-20 19:54] LABS: Glucose, Whole Blood 80 mg/dL (60-115)
[2023-02-21] VITALS (7 sets, daily range): BP systolic 81–112; BP diastolic 54–65; PULSE 78–109; RESP 17–20; TEMP 36.1–37.3; O2SAT 93–96
[2023-02-21] MEDS: dilTIAZem HCL 125 MG in 0.9 % Sodium Chloride 100 ML 10 MG IVCONT (00:36)
[2023-02-21] MEDS: Piperacillin Sodium/Tazobactam 3.375 GM in 0.9 % Sodium Chloride 50 ML IV ×4 (04:34→21:43)
[2023-02-21] MEDS: 0.9 % Sodium Chloride 1,000 ML 50 ML IVCONT (05:21)
[2023-02-21 07:46] LABS: Glucose, Whole Blood 67 mg/dL (60-115)
[2023-02-21] MEDS: Dextrose 50 % 25 GM/50 ML SYRINGE IVPUSH (07:53)
[2023-02-21] MEDS: 0.9 % Sodium Chloride Flush 3 ML SYRINGE IVFLUSH ×3 (07:53→19:49)
--- NOTE | 2023-02-21 07:59 | HO.POSTANES ---
Post Anesthesia Evaluation Post Anesthesia Evaluation Date of Service: 02/21/23 Vital Signs: Vital Signs Temp Pulse Resp BP Pulse Ox O2 Del Method O2 Flow Rate 02/21/23 07:13 97.3 F 95 18 111/65 94 Nasal Cannula 2 02/21/23 03:29 97.0 F 92 20 101/62 93 Nasal Cannula 2 02/20/23 23:51 97.1 F 102 H 20 98/53 L 92 Nasal Cannula 2 02/21/23 05:06 93 Nasal Cannula 02/20/23 22:35 110 H Anesthesia: General Endotracheal-GETA Mental Status: Awake Pain Control: Satisfactory Nausea/Vomiting: None Hydration: Adequate Anesthesia-Related Issues: No Anes. Related Issues
[2023-02-21] MEDS: Enoxaparin Sodium 40 MG/0.4 ML SYRINGE SUBCUT (09:19)
[2023-02-21 09:22] LABS: Glucose, Whole Blood 149 mg/dL (60-115)
[2023-02-21] MEDS: Metoprolol Tartrate 12.5 MG HALFTAB PO ×2 (10:44→19:48)
[2023-02-21 11:57] LABS: Glucose, Whole Blood 104 mg/dL (60-115)
[2023-02-21] MEDS: Ferrous Sulfate 324 MG TABLET.DR PO (16:06)
[2023-02-21] MEDS: Insulin Lispro 100 UNIT/ML 3 ML VIAL SUBCUT ×2 (16:06→20:39)
[2023-02-21] MEDS: Omeprazole 20 MG CAPSULE.DR PO (16:06)
[2023-02-21 16:18] LABS: Glucose, Whole Blood 237 mg/dL (60-115)
--- NOTE | 2023-02-21 16:41 | PC.NURSE ---
Addendum entered by Edelmira Aguilar RN 02/21/23 17:49: Pt removed own NGT while eating dinner. aware, OK to leave out. HR beginning to increase into 110-120s, aware. Original Note: Diet ordered this morning. Tolerating liquid diet. NGT clamped at 1045. Pt denies nausea or abdominal pain. Positive bowel sounds in all quadrants. Cardizem gtt was d/c and pt was started on PO lopressor. Pt remains in A Fib, rate controlled. Pt continues on 2L NC. Major catheter remains in place.
[2023-02-21] MEDS: Atorvastatin Calcium 80 MG TABLET PO (19:48)
[2023-02-21] MEDS: cloZAPine 100 MG TABLET 200 MG PO (19:48)
[2023-02-21] MEDS: Apixaban 5 MG TABLET PO (19:49)
[2023-02-21 20:26] LABS: Glucose, Whole Blood 308 mg/dL (60-115)
[2023-02-21] MEDS: Insulin Glargine,Hum.rec.anlog 100 UNIT/ML 10 ML VIAL 20 UNIT SUBCUT (20:40)
[2023-02-22] VITALS (9 sets, daily range): BP systolic 101–114; BP diastolic 54–74; PULSE 58–117; RESP 17–20; TEMP 36.3–37.6; O2SAT 92–97
[2023-02-22] MEDS: 0.9 % Sodium Chloride 1,000 ML 999 ML IV (00:14)
--- NOTE | 2023-02-22 00:25 | PC.NURSE ---
Assumed care at 1900. Pt in bed. Awake and conversant, watching TV. No symptoms. 2214, pt converted to NSR with HR at 90s-100's. notified. BP was slightly low at midnight. 81/60. Pt is arousable. 1 L of NS given. Will recheck after an hour.
[2023-02-22] MEDS: Piperacillin Sodium/Tazobactam 3.375 GM in 0.9 % Sodium Chloride 50 ML IV ×4 (03:40→22:27)
[2023-02-22] MEDS: Omeprazole 20 MG CAPSULE.DR PO (05:20)
[2023-02-22] MEDS: Levothyroxine Sodium 75 MCG TABLET PO (05:20)
[2023-02-22 07:54] LABS: Glucose, Whole Blood 115 mg/dL (60-115)
--- NOTE | 2023-02-22 08:04 | HO.PM.IMPN ---
Subjective Subjective Date of Service: 02/22/23 Interval History: confused, Physical Exam Vital Signs: Vital Signs: Last Vital Signs Temp 97.4 F 02/22/23 07:19 Pulse 98 02/22/23 07:19 Resp 18 02/22/23 07:19 BP 110/74 02/22/23 07:19 Pulse Ox 97 02/22/23 07:19 O2 Del Method Nasal Cannula 02/22/23 07:19 O2 Flow Rate 2 02/22/23 07:19 Oxygen Flow Rate 2 02/22/23 05:00 BMI result Body Mass Index 24.7 Const: General: no acute distress Resp: Effort & Inspection: normal respiratory effort Cardio: Rate: tachycardic GI: Inspection: Yes distended and Yes scar (umbilicus, consistent with hx of umbilical hernia repair ) Palpation (GI): Soft to palpation, nontender, no guarding and not rigid Percussion: Yes tympanic to percussion Skin: General skin exam: no rashes or lesions noted Extrem: General: Yes no clubbing, cyanosis or edema Objective Data Active Medications Apixaban (Apixaban 5 Mg Tablet) 5 mg PO BID [facility] Last Admin: 02/21/23 19:49 Dose: 5 mg Documented By: DANIEL Aspirin (Aspirin 81 Mg Tab.Chew) 81 mg PO DAILY [facility] Atorvastatin Calcium (Atorvastatin Calcium 80 Mg Tablet) 80 mg PO BEDTIME [facility] Last Admin: 02/21/23 19:48 Dose: 80 mg Documented By: DANIEL Clozapine (Clozapine 100 Mg Tablet) 200 mg PO BEDTIME [facility] Last Admin: 02/21/23 19:48 Dose: 200 mg Documented By: DANIEL Dextrose (Dextrose 50 % 25 Gm/50 Ml Syringe) 25 gm IVPUSH Q15M PRN; Protocol PRN Reason: per Hypoglycemia Standing Ord. Last Admin: 02/21/23 07:53 Dose: 25 gm Documented By: PORTIA Comments: bg 67 Ferrous Sulfate (Ferrous Sulfate 324 Mg Tablet.) 324 mg PO DAILY@1700 [facility] Last Admin: 02/21/23 16:06 Dose: 324 mg Documented By: PORTIA Glucose (Glucose Gel 15 Gm Gel..Gram.) 15 gm PO Q15M PRN; Protocol PRN Reason: per Hypoglycemia Standing Ord. Piperacillin Sod/Tazobactam (Sod 3.375 gm/ Sodium Chloride) 50 mls @ 100 mls/hr IV Q6H [facility] Last Infusion: 02/22/23 04:16 Dose: 0 mls/hr Documented By: DANIEL Insulin Glargine (Insulin Glargine,Hum.Rec.Anlog 100 Unit/Ml 10 Ml Vial) 20 unit SUBCUT BEDTIME [facility] Last Admin: 02/21/23 20:40 Dose: 20 unit Documented By: DANIEL Insulin Human Lispro (Insulin Lispro 100 Unit/Ml 3 Ml Vial) 0 unit SUBCUT QIDACHS [facility]; Protocol Last Admin: 02/21/23 20:39 Dose: 8 unit Documented By: DANIEL Lactulose (Lactulose 20 Gm/30 Ml Solution) 20 gm PO DAILY [facility] Levothyroxine Sodium (Levothyroxine Sodium 75 Mcg Tablet) 75 mcg PO DAILY@0600 [facility] Last Admin: 02/22/23 05:20 Dose: 75 mcg Documented By: DANIEL Metoprolol Tartrate (Metoprolol Tartrate 5 Mg/5 Ml Vial) 5 mg IVPUSH Q6H PRN PRN Reason: Heart Rate >100 Last Admin: 02/20/23 09:03 Dose: 5 mg Documented By: MARILYNN Metoprolol Tartrate (Metoprolol Tartrate 12.5 Mg Halftab) 12.5 mg PO BID [facility]; Protocol Last Admin: 02/21/23 19:48 Dose: 12.5 mg Documented By: DANIEL Omeprazole (Omeprazole 20 Mg Christiano.) 20 mg PO BID@0630,1630 [facility] Last Admin: 02/22/23 05:20 Dose: 20 mg Documented By: DANIEL Ondansetron HCl (Ondansetron Hcl 4 Mg/2 Ml Vial) 4 mg IVPUSH ONCE PRN PRN Reason: Nausea and Vomiting Pharmacy Consult (Consult Rx Perform Med Rec) 1 each MISCELLANE ONCE PRN PRN Reason: Consult order Sodium Chloride (0.9 % Sodium Chloride Flush 3 Ml Syringe) 3 ml IVFLUSH QSHIFT [facility] Last Admin: 02/21/23 19:49 Dose: 3 ml Documented By: DANIEL Labs 02/20/23 02:07 02/20/23 02:07 Labs: Laboratory Results - last 24 hr 02/21/23 02/21/23 02/21/23 09:17 11:06 16:00 POC Glucose 149 H 104 237 H 02/21/23 02/22/23 20:22 07:21 POC Glucose 308 H 115 Microbiology Microbiology Results: Microbiology 02/20/23 02:07 Blood Culture - Preliminary Blood - Venous No growth after 48 hours. 02/20/23 02:07 Blood Culture - Preliminary Blood - Venous No growth after 48 hours. 02/20/23 Unknown Urine Culture - Preliminary Urine Catheterized - Straight Catheter Yeast Assessment and Plan (1) Volvulus of sigmoid colon: Status: Acute Plan 62M PMH CAD s/p CABG, paroxysmal afib, COPD, DM2, paranoid schizophrenia, hypothyroid, from [facility] presented with abdominal pain, distension, hypoxia acute sigmoid volvulus s/p detorsion now with NGT removed, started on clears follow up KUB severe sepsis and acute hypoxic respiratory failure and acute metabolic encephalopathy due to aspiration pneumonia iv zosyn, wean o2 as tolerated paroxysmal afib with rvr lopressor, eliquis, better controlled DM insulin CAD asa, statin, eliquis hypothryoid synthroid paranoid schizophrenia clozaril dvt prophylaxis -eliquis full code reason for continued hospitalization:awaiting return of gi function Time Spent With Patient Time: Total time managing care of this patient today ____ minutes. Quality Stroke Does the patient have a stroke diagnosis?: No VTE Prior VTE?: No VTE Risk Level:: Medical - moderate - high VTE Device Contraindication: Treatment Not Indicated VTE Drug Contraindication: N/A - Med Ordered
[2023-02-22] MEDS: Aspirin 81 MG TAB.CHEW PO (08:43)
[2023-02-22] MEDS: Metoprolol Tartrate 12.5 MG HALFTAB PO (08:43)
[2023-02-22] MEDS: Apixaban 5 MG TABLET PO (08:43)
[2023-02-22] MEDS: Lactulose 20 GM/30 ML SOLUTION PO (08:43)
[2023-02-22] MEDS: 0.9 % Sodium Chloride Flush 3 ML SYRINGE IVFLUSH ×3 (08:50→21:01)
[2023-02-22 12:06] LABS: Glucose, Whole Blood 148 mg/dL (60-115)
[2023-02-22] MEDS: Metoprolol Tartrate 5 MG/5 ML VIAL IVPUSH ×2 (12:28→21:01)
[2023-02-22 17:06] LABS: Glucose, Whole Blood 205 mg/dL (60-115)
[2023-02-22] MEDS: Acetaminophen 325 MG TABLET 650 MG PO (18:35)
--- NOTE | 2023-02-22 18:38 | PC.NURSE ---
Patient alert to self and hospital, speech mumbled. Right eye ptosis noted. LS rhonchi this am, patient noted to be coughing with breakfast liquid diet. Dr Ward notified off unit for KUB and chest xray. Again coughing with lunch liquid diet food held at this time. NPO order placed and speech eval ordered. Heart rate afib in am up to 110-150's at lunchtime IV metoprolol given per order with some effect. Elevated again at 1600 to early to give metoprolol Dr Ward notified on unit to see patient. Abdomen distended NG tube placed to right nare per order for decompression xray completed awaiting results. Quinn cath with some blood tinged urine pt pulling at [facility] in afternoon. Temp [address] Ward notified tylenol ordered and given. Will continue to monitor and report changes
[2023-02-22] MEDS: Enoxaparin Sodium 80 MG/0.8 ML SYRINGE SUBCUT (21:00)
[2023-02-22] MEDS: Insulin Glargine,Hum.rec.anlog 100 UNIT/ML 10 ML VIAL 20 UNIT SUBCUT (21:00)
[2023-02-22 22:33] LABS: Glucose, Whole Blood 105 mg/dL (60-115)
[2023-02-23] VITALS (26 sets, daily range): BP systolic 92–121; BP diastolic 46–72; PULSE 90–125; RESP 14–30; TEMP 36.1–37.3; O2SAT 94–99
[2023-02-23] MEDS: Piperacillin Sodium/Tazobactam 3.375 GM in 0.9 % Sodium Chloride 50 ML IV ×4 (03:32→22:26)
--- NOTE | 2023-02-23 03:56 | PC.NURSE ---
NGT in place to the right nare. CXR report results to . NGT placed to LWS, abdomen continues to be distended and firm.
[2023-02-23 07:02] LABS: Hemoglobin 13.4 g/dl (14.0-18.0); Mean Corpuscular HGB Conc 31.9 g/dl (31.0-36.0); Mean Corpuscular Hemoglobin 27.5 pg (27.0-33.0); Mean Corpuscular Volume 86.1 fL (80.0-98.0); Mean Platelet Volume 11.4 fL (9.4-12.4); Platelet Count 184 X10*3/uL (160-400); Red Blood Count 4.88 X10*6/uL (4.60-5.80); Red Cell Distribution Width 15.4 % (11.0-16.0); White Blood Count 12.8 X10*3/uL (4.8-10.8)
[2023-02-23 07:36] LABS: Anion Gap 22 (12-20); Blood Urea Nitrogen 15 mg/dL (9-16); Calcium 9.1 mg/dL (8.4-10.2); Carbon Dioxide 16 mmol/L (22-29); Chloride 115 mmol/L (96-108); Creatinine Clr Calc Pharmacy 113.4; Estimated Glomerular Filt Rate > 60; Glucose Fasting 77 mg/dL (60-99); Potassium 2.6 mmol/L (3.3-5.1); Sodium 150 mmol/L (135-145)
[2023-02-23 07:41] LABS: Glucose, Whole Blood 67 mg/dL (60-115)
--- NOTE | 2023-02-23 08:50 | HO.PM.IMPN ---
Subjective Subjective Date of Service: 02/23/23 Interval History: reports wanting to eat, but abd still distended Physical Exam Vital Signs: Vital Signs: Last Vital Signs Temp 97.5 F 02/23/23 07:10 Pulse 108 H 02/23/23 07:10 Resp 16 02/23/23 07:10 BP 107/66 02/23/23 07:10 Pulse Ox 96 02/23/23 07:10 O2 Del Method Nasal Cannula 02/23/23 07:10 O2 Flow Rate 2 02/23/23 07:10 Oxygen Flow Rate 2 02/23/23 05:00 BMI result Body Mass Index 24.7 alert, talkative, poor insight, ill appearign, ngt in place with minimal yellowish output abd distended, non tender Objective Data Active Medications Acetaminophen (Acetaminophen 325 Mg Tablet) 650 mg PO Q6H PRN PRN Reason: fever, mild pain Last Admin: 02/22/23 18:35 Dose: 650 mg Documented By: MICHAEL Aspirin (Aspirin 81 Mg Tab.Chew) 81 mg PO DAILY [facility] Last Admin: 02/22/23 08:43 Dose: 81 mg Documented By: MICHAEL Atorvastatin Calcium (Atorvastatin Calcium 80 Mg Tablet) 80 mg PO BEDTIME [facility] Last Admin: 02/22/23 20:34 Dose: Not Given Documented By: JOSEPH Non-Admin Reason: NPO Clozapine (Clozapine 100 Mg Tablet) 200 mg PO BEDTIME [facility] Last Admin: 02/22/23 20:56 Dose: Not Given Documented By: JOSEPH Non-Admin Reason: NPO Dextrose (Dextrose 50 % 25 Gm/50 Ml Syringe) 25 gm IVPUSH Q15M PRN; Protocol PRN Reason: per Hypoglycemia Standing Ord. Last Admin: 02/21/23 07:53 Dose: 25 gm Documented By: PORTIA Comments: bg 67 Enoxaparin Sodium (Enoxaparin Sodium 80 Mg/0.8 Ml Syringe) 80 mg 1 mg/kg (80 mg) SUBCUT Q12H [facility] Last Admin: 02/22/23 21:00 Dose: 80 mg Documented By: JOSEPH Ferrous Sulfate (Ferrous Sulfate 324 Mg Tablet.Dr) 324 mg PO DAILY@1700 [facility] Last Admin: 02/22/23 17:37 Dose: Not Given Documented By: MICHAEL Non-Admin Reason: NPO Glucose (Glucose Gel 15 Gm Gel..Gram.) 15 gm PO Q15M PRN; Protocol PRN Reason: per Hypoglycemia Standing Ord. Piperacillin Sod/Tazobactam (Sod 3.375 gm/ Sodium Chloride) 50 mls @ 100 mls/hr IV Q6H [facility] Last Infusion: 02/23/23 04:20 Dose: 0 mls/hr Documented By: JOSEPH Potassium Chloride (Potassium Chloride/H20) 10 meq in 100 mls @ 100 mls/hr IV Q1H [facility] Stop: 02/23/23 12:59 Dextrose/Sodium Chloride (D51/2ns) 1,000 mls @ 125 mls/hr IVCONT .Q8H [facility] Insulin Glargine (Insulin Glargine,Hum.Rec.Anlog 100 Unit/Ml 10 Ml Vial) 20 unit SUBCUT BEDTIME [facility] Last Admin: 02/22/23 21:00 Dose: 10 unit Documented By: JOSEPH Comments: per MD BETANCOURT give 1/2 dose as pt is NPO Insulin Human Lispro (Insulin Lispro 100 Unit/Ml 3 Ml Vial) 0 unit SUBCUT QIDACHS [facility]; Protocol Last Admin: 02/22/23 20:56 Dose: Not Given Documented By: JOSEPH Non-Admin Reason: NPO Lactulose (Lactulose 20 Gm/30 Ml Solution) 20 gm PO DAILY [facility] Last Admin: 02/22/23 08:43 Dose: 20 gm Documented By: MICHAEL Levothyroxine Sodium (Levothyroxine Sodium 75 Mcg Tablet) 75 mcg PO DAILY@0600 [facility] Last Admin: 02/23/23 05:07 Dose: Not Given Documented By: JOSEPH Non-Admin Reason: NPO Metoprolol Tartrate (Metoprolol Tartrate 5 Mg/5 Ml Vial) 5 mg IVPUSH Q6H PRN PRN Reason: Heart Rate >100 Last Admin: 02/22/23 21:01 Dose: 5 mg Documented By: JOSEPH Metoprolol Tartrate (Metoprolol Tartrate 12.5 Mg Halftab) 12.5 mg PO BID [facility]; Protocol Last Admin: 02/22/23 20:56 Dose: Not Given Documented By: JOSEPH Non-Admin Reason: NPO Omeprazole (Omeprazole 20 Mg Capsule.Dr) 20 mg PO BID@1881,6340 [facility] Last Admin: 02/23/23 05:07 Dose: Not Given Documented By: JOSEPH Non-Admin Reason: NPO Ondansetron HCl (Ondansetron Hcl 4 Mg/2 Ml Vial) 4 mg IVPUSH ONCE PRN PRN Reason: Nausea and Vomiting Pharmacy Consult (Consult Rx Perform Med Rec) 1 each MISCELLANE ONCE PRN PRN Reason: Consult order Sodium Chloride (0.9 % Sodium Chloride Flush 3 Ml Syringe) 3 ml IVFLUSH QSHIFT [facility] Last Admin: 02/22/23 21:01 Dose: 3 ml Documented By: JOSEPH Labs 02/23/23 06:03 02/23/23 06:03 Labs: Laboratory Results - last 24 hr 02/22/23 02/22/23 02/22/23 11:20 16:39 21:26 MCV MCH MCHC RDW Plt Count MPV Absolute Nucleated RBC Nucleated RBC % (auto) Anion Gap Estim Creat Clear Calc Estimated GFR POC Glucose 148 H 205 H 105 Fasting Glucose Calcium 02/23/23 02/23/23 02/23/23 06:03 06:03 07:37 MCV 86.1 MCH 27.5 MCHC 31.9 RDW 15.4 Plt Count 184 D MPV 11.4 Absolute Nucleated RBC 0.000 Nucleated RBC % (auto) 0.0 Anion Gap 22 H Estim Creat Clear Calc 113.4 Estimated GFR > 60 POC Glucose 67 Fasting Glucose 77 Calcium 9.1 D Microbiology Microbiology Results: Microbiology 02/20/23 Unknown Urine Culture - Preliminary Urine Catheterized - Straight Catheter Yeast Assessment and Plan (1) Volvulus of sigmoid colon: Status: Acute Plan 62M PMH CAD s/p CABG, paroxysmal afib, COPD, DM2, paranoid schizophrenia, hypothyroid, from [facility] presented with abdominal pain, distension, hypoxia acute sigmoid volvulus s/p detorsion NGT replaced for ongoing distension surgery following severe sepsis and acute hypoxic respiratory failure and acute metabolic encephalopathy due to aspiration pneumonia iv zosyn, wean o2 as tolerated hypernatremia d51/2ns, monitor paroxysmal afib with rvr lopressor, therapeutic lovenox, better controlled DM insulin CAD asa, statin hypothryoid synthroid paranoid schizophrenia clozaril dvt prophylaxis -lovenox full code reason for continued hospitalization:awaiting return of gi function Time Spent With Patient Time: Total time managing care of this patient today ____ minutes. Quality Stroke Does the patient have a stroke diagnosis?: No VTE Prior VTE?: No VTE Risk Level:: Medical - moderate - high VTE Device Contraindication: Treatment Not Indicated VTE Drug Contraindication: N/A - Med Ordered
[2023-02-23] MEDS: Dextrose 5 % and 0.45 % NaCl 1,000 ML 125 ML IVCONT (09:19)
[2023-02-23] MEDS: Potassium Chloride/H20 10 MEQ/100 ML PIGGYBACK 100 MEQ IV ×8 (09:26→20:47)
--- NOTE | 2023-02-23 09:32 | P.PNGS_ITS ---
Subjective Subjective Date of Service: 02/23/23 Interval history: Patient became increasingly distended yesterday per RN and abdomen was hard by the end of shift. No vomiting. NGT therefore reinserted by hospitalist. No flatus or BM since decompression. Physical Exam Vital Signs: Vital Signs: Last Vital Signs Temp 97.5 F 02/23/23 07:10 Pulse 108 H 02/23/23 07:10 Resp 16 02/23/23 07:10 BP 107/66 02/23/23 07:10 Pulse Ox 96 02/23/23 07:10 O2 Del Method Nasal Cannula 02/23/23 07:10 O2 Flow Rate 2 02/23/23 07:10 Oxygen Flow Rate 2 02/23/23 05:00 BMI result Body Mass Index 24.7 Const: General: comfortable, no acute distress and alert Orientation/consciousness: patient oriented x3 Resp: Effort & Inspection: normal respiratory effort GI: Inspection: Yes distended (markedly) Palpation (GI): Soft to palpation, nontender, no guarding and not rigid Percussion: Yes tympanic to percussion Skin: General skin exam: no rashes or lesions noted Neuro: General: patient oriented x3 and moves all extremities Objective Data Active Medications Acetaminophen (Acetaminophen 325 Mg Tablet) 650 mg PO Q6H PRN PRN Reason: fever, mild pain Last Admin: 02/22/23 18:35 Dose: 650 mg Documented By: MICHAEL Aspirin (Aspirin 81 Mg Tab.Chew) 81 mg PO DAILY [facility] Last Admin: 02/23/23 09:19 Dose: Not Given Documented By: MICHAEL Non-Admin Reason: NPO Atorvastatin Calcium (Atorvastatin Calcium 80 Mg Tablet) 80 mg PO BEDTIME [facility] Last Admin: 02/22/23 20:34 Dose: Not Given Documented By: JOSEPH Non-Admin Reason: NPO Clozapine (Clozapine 100 Mg Tablet) 200 mg PO BEDTIME [facility] Last Admin: 02/22/23 20:56 Dose: Not Given Documented By: JOSEPH Non-Admin Reason: NPO Dextrose (Dextrose 50 % 25 Gm/50 Ml Syringe) 25 gm IVPUSH Q15M PRN; Protocol PRN Reason: per Hypoglycemia Standing Ord. Last Admin: 02/21/23 07:53 Dose: 25 gm Documented By: PORTIA Comments: bg 67 Enoxaparin Sodium (Enoxaparin Sodium 80 Mg/0.8 Ml Syringe) 80 mg 1 mg/kg (80 mg) SUBCUT Q12H [facility] Last Admin: 02/22/23 21:00 Dose: 80 mg Documented By: JOSEPH Ferrous Sulfate (Ferrous Sulfate 324 Mg Tablet.Dr) 324 mg PO DAILY@1700 [facility] Last Admin: 02/22/23 17:37 Dose: Not Given Documented By: MICHAEL Non-Admin Reason: NPO Glucose (Glucose Gel 15 Gm Gel..Gram.) 15 gm PO Q15M PRN; Protocol PRN Reason: per Hypoglycemia Standing Ord. Piperacillin Sod/Tazobactam (Sod 3.375 gm/ Sodium Chloride) 50 mls @ 100 mls/hr IV Q6H [facility] Last Admin: 02/23/23 09:27 Dose: 100 mls/hr Documented By: MICHAEL Potassium Chloride (Potassium Chloride/H20) 10 meq in 100 mls @ 100 mls/hr IV Q1H [facility] Stop: 02/23/23 12:59 Last Admin: 02/23/23 09:26 Dose: 100 mls/hr Documented By: MICHAEL Dextrose/Sodium Chloride (D51/2ns) 1,000 mls @ 125 mls/hr IVCONT .Q8H [facility] Last Admin: 02/23/23 09:19 Dose: 125 mls/hr Documented By: MICHAEL Insulin Glargine (Insulin Glargine,Hum.Rec.Anlog 100 Unit/Ml 10 Ml Vial) 20 unit SUBCUT BEDTIME [facility] Last Admin: 02/22/23 21:00 Dose: 10 unit Documented By: JOSEPH Comments: per MD BETANCOURT give 1/2 dose as pt is NPO Insulin Human Lispro (Insulin Lispro 100 Unit/Ml 3 Ml Vial) 0 unit SUBCUT QIDAC HS [facility]; Protocol Last Admin: 02/23/23 09:18 Dose: Not Given Documented By: MICHAEL Non-Admin Reason: No Insulin Coverage Lactulose (Lactulose 20 Gm/30 Ml Solution) 20 gm PO DAILY [facility] Last Admin: 02/23/23 09:19 Dose: Not Given Documented By: MICHAEL Non-Admin Reason: NPO Levothyroxine Sodium (Levothyroxine Sodium 75 Mcg Tablet) 75 mcg PO DAILY@0600 [facility] Last Admin: 02/23/23 05:07 Dose: Not Given Documented By: JOSEPH Non-Admin Reason: NPO Metoprolol Tartrate (Metoprolol Tartrate 5 Mg/5 Ml Vial) 5 mg IVPUSH Q6H PRN PRN Reason: Heart Rate >100 Last Admin: 02/22/23 21:01 Dose: 5 mg Documented By: JOSEPH Metoprolol Tartrate (Metoprolol Tartrate 12.5 Mg Halftab) 12.5 mg PO BID [facility]; Protocol Last Admin: 02/23/23 09:19 Dose: Not Given Documented By: MICHAEL Non-Admin Reason: NPO Omeprazole (Omeprazole 20 Mg Capsule.Dr) 20 mg PO BID@0630,1630 [facility] Last Admin: 02/23/23 05:07 Dose: Not Given Documented By: JOSEPH Non-Admin Reason: NPO Ondansetron HCl (Ondansetron Hcl 4 Mg/2 Ml Vial) 4 mg IVPUSH ONCE PRN PRN Reason: Nausea and Vomiting Pharmacy Consult (Consult Rx Perform Med Rec) 1 each MISCELLANE ONCE PRN PRN Reason: Consult order Sodium Chloride (0.9 % Sodium Chloride Flush 3 Ml Syringe) 3 ml IVFLUSH QSHIFT [facility] Last Admin: 02/23/23 09:15 Dose: Not Given Documented By: MICHAEL Non-Admin Reason: IV Running Labs 02/23/23 06:03 02/23/23 06:03 Labs: Laboratory Results - last 24 hr 02/22/23 02/22/23 02/22/23 11:20 16:39 21:26 MCV MCH MCHC RDW Plt Count MPV Absolute Nucleated RBC Nucleated RBC % (auto) Anion Gap Estim Creat Clear Calc Estimated GFR POC Glucose 148 H 205 H 105 Fasting Glucose Calcium 02/23/23 02/23/23 02/23/23 06:03 06:03 07:37 MCV 86.1 MCH 27.5 MCHC 31.9 RDW 15.4 Plt Count 184 D MPV 11.4 Absolute Nucleated RBC 0.000 Nucleated RBC % (auto) 0.0 Anion Gap 22 H Estim Creat Clear Calc 113.4 Estimated GFR > 60 POC Glucose 67 Fasting Glucose 77 Calcium 9.1 D Microbiology Microbiology Results: Microbiology 02/20/23 Unknown Urine Culture - Preliminary Urine Catheterized - Straight Catheter Yeast Procedures Date of Service Date of Service: 02/23/23 Progress Note: A&P Assessment and plan (1) Volvulus of sigmoid colon: Status: Acute Plan 62 year old male who was admitted for sigmoid volvulus s/p colonoscopy, sigmoid detorsion on 02/20/23. He was initially doing well following and his NGT was removed and started on clear liquids however he had increasing abdominal distention yesterday requiring NGT reinsertion. Sigmoid volvulus likely recurred. His abdomen is markedly distended but soft and this is likely from NGT decompression rather than detorsion. It was therefore recommended to proceed with sigmoid resection, end colostomy today. Arrangements will be made for this. Time Spent With Patient Time: Total time managing care of this patient today ____ minutes. Quality Stroke Does the patient have a stroke diagnosis?: No VTE Prior VTE?: No VTE Risk Level:: Medical - moderate - high VTE Device Contraindication: Treatment Not Indicated VTE Drug Contraindication: N/A - Med Ordered
--- NOTE | 2023-02-23 10:27 | MHC.SLORD ---
Addendum entered and electronically signed by Jesika Diaz MA, CCC-MANAGER EPIC 02/24/23 13:50: Discussed w/ Dr. Rodriguez. Order still deferred until pt is cleared to have PO, as pt is recovering from colostomy, s/p removal of sigmoid. Original Note: Speech Language Pathology Order Status: Order received for bedside swallow. Pt had NGT placed for ongoing distention. On 02/21 pt removed his NGT, was started on a liquid diet. RN noted on 02/22 pt was coughing with breakfast and lunch liquid diet, made NPO and speech consulted. Pt was seen by General Surgery and was recommended to proceed with sigmoid resection, end colostomy today. Discussed w/ Dr. Ward. Pt to be kept NPO for this procedure and MANAGER EPIC consult deferred until after procedure.
--- NOTE | 2023-02-23 10:38 | MHC.CM.PN ---
Per ROUNDS discussion, Patient is not yet medically cleared for dc (IV Zosyn); Returning to SNF/LTC is the goal and CM will continue to follow.
--- NOTE | 2023-02-23 11:17 | PC.NURSE ---
Pt started on IV fluids this am as well as IV potassium replacement per order. NG tube in place to right nare to low wall suction with minimal bile colored output. Abdomen distended semi firm patient denies pain/discomfort. BS hypoactive patient no passing flatus or stool. Lung sounds remain rhonchi all davila continues on 2L oxygen via nasal cannula. NPO since 02/22 afternoon. Major cath with rust colored urine pt occasionally pulling at tubing cath secure replaced. Lovenox held this am patient off unit for surgery at 1100. Will continue to monitor and report changes
[2023-02-23 11:34] LABS: Glucose, Whole Blood 111 mg/dL (60-115)
--- NOTE | 2023-02-23 12:48 | HO.ANESPROP2 ---
HPI - Anesthesia Eval Consult details Narrative: 62 yo M presenting for sigmoid resection due to volvulus of sigmoid colon. Na 150, getting D5 1/2NS on the floor. K was 2.6, getting 40 units of IV repletion. 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 Cognitive impairment COPD (chronic obstructive pulmonary disease) COVID-19 Dementia Drug induced subacute dyskinesia Dysphagia Encephalopathy Essential (primary) hypertension Exotropia, alternating, with A pattern Hyperlipidemia Hypermetropia of both eyes Hypothyroidism Palsy (spasm) of conjugate gaze Paranoid schizophrenia Personal history of transient ischemic attack (TIA), and cerebral infarction without residual deficits Ptosis of right eyelid Type 2 diabetes mellitus Family History Family history of problems with anesthesia: No Surgical History Surgical History Presence of aortocoronary bypass graft History of Problems with Anesthesia: No Social History Social History Household Members: Unknown / Unable to assess Household Members Other:: [facility] Housing: Other Housing Other:: [facility] Do you presently have visiting nurse or other home services: No Unable to assess alcohol history related to: Unknown Patient Tobacco Use Status: Former Tobacco user Tobacco use type: Cigarette Years Smoked: SURAJ Use of substances other than those prescribed or required for medical reasons: No Currently Displaying Signs/Symptoms of Drug Intoxication Withdrawal: No Are you DNR?: No Advance Directives: Yes Advance Directives on File: Yes Advance Directives Date on File: 12/14/21 Do you have thoughts of harming others: None Do you have a plan to hurt others: No Plan service: No Current occupational status: disabled Meds Allergies Allergy/AdvReac Type Severity Reaction Status Date / Time No Known Allergies Allergy Unverified 04/05/20 19:36 [No Known Allergies*] Active Medications: Current Medications Acetaminophen (Acetaminophen 325 Mg Tablet) 650 mg PO Q6H PRN PRN Reason: fever, mild pain Last Admin: 02/22/23 18:35 Dose: 650 mg Aspirin (Aspirin 81 Mg Tab.Chew) 81 mg PO DAILY [facility] Last Admin: 02/23/23 09:19 Dose: Not Given Atorvastatin Calcium (Atorvastatin Calcium 80 Mg Tablet) 80 mg PO BEDTIME [facility] Last Admin: 02/22/23 20:34 Dose: Not Given Clozapine (Clozapine 100 Mg Tablet) 200 mg PO BEDTIME [facility] Last Admin: 02/22/23 20:56 Dose: Not Given Dextrose (Dextrose 50 % 25 Gm/50 Ml Syringe) 25 gm IVPUSH Q15M PRN; Protocol PRN Reason: per Hypoglycemia Standing Ord. Last Admin: 02/21/23 07:53 Dose: 25 gm Enoxaparin Sodium (Enoxaparin Sodium 80 Mg/0.8 Ml Syringe) 80 mg 1 mg/kg (80 mg) SUBCUT Q12H [facility] Last Admin: 02/23/23 10:50 Dose: Not Given Ferrous Sulfate (Ferrous Sulfate 324 Mg Tablet.) 324 mg PO DAILY@1700 [facility] Last Admin: 02/22/23 17:37 Dose: Not Given Glucose (Glucose Gel 15 Gm Gel..Gram.) 15 gm PO Q15M PRN; Protocol PRN Reason: per Hypoglycemia Standing Ord. Piperacillin Sod/Tazobactam (Sod 3.375 gm/ Sodium Chloride) 50 mls @ 100 mls/hr IV Q6H [facility] Last Infusion: 02/23/23 10:00 Dose: Infused Potassium Chloride (Potassium Chloride/H20) 10 meq in 100 mls @ 100 mls/hr IV Q1H [facility] Stop: 02/23/23 12:59 Last Admin: 02/23/23 10:54 Dose: 100 mls/hr Dextrose/Sodium Chloride (D51/2ns) 1,000 mls @ 125 mls/hr IVCONT .Q8H [facility] Last Admin: 02/23/23 09:19 Dose: 125 mls/hr Insulin Glargine (Insulin Glargine,Hum.Rec.Anlog 100 Unit/Ml 10 Ml Vial) 20 unit SUBCUT BEDTIME [facility] Last Admin: 02/22/23 21:00 Dose: 10 unit Insulin Human Lispro (Insulin Lispro 100 Unit/Ml 3 Ml Vial) 0 unit SUBCUT QIDACHS [facility]; Protocol Last Admin: 02/23/23 09:18 Dose: Not Given Lactulose (Lactulose 20 Gm/30 Ml Solution) 20 gm PO DAILY [facility] Last Admin: 02/23/23 09:19 Dose: Not Given Levothyroxine Sodium (Levothyroxine Sodium 75 Mcg Tablet) 75 mcg PO DAILY@0600 [facility] Last Admin: 02/23/23 05:07 Dose: Not Given Metoprolol Tartrate (Metoprolol Tartrate 5 Mg/5 Ml Vial) 5 mg IVPUSH Q6H PRN PRN Reason: Heart Rate >100 Last Admin: 02/22/23 21:01 Dose: 5 mg Metoprolol Tartrate (Metoprolol Tartrate 12.5 Mg Halftab) 12.5 mg PO BID [facility]; Protocol Last Admin: 02/23/23 09:19 Dose: Not Given Omeprazole (Omeprazole 20 Mg Capsule.Dr) 20 mg PO BID@0630,1630 [facility] Last Admin: 02/23/23 05:07 Dose: Not Given Ondansetron HCl (Ondansetron Hcl 4 Mg/2 Ml Vial) 4 mg IVPUSH ONCE PRN PRN Reason: Nausea and Vomiting Pharmacy Consult (Consult Rx Perform Med Rec) 1 each MISCELLANE ONCE PRN PRN Reason: Consult order Sodium Chloride (0.9 % Sodium Chloride Flush 3 Ml Syringe) 3 ml IVFLUSH QSHIFT [facility] Last Admin: 02/23/23 09:15 Dose: Not Given Home Medications Medication Instructions Recorded Confirmed Last Taken Type aspirin 81 mg chewable tablet 81 mg PO DAILY 12/13/21 02/20/23 12/12/21 History atorvastatin 80 mg tablet 1 tab PO BEDTIME 12/13/21 02/20/23 12/12/21 History canagliflozin 100 mg tablet 1 tab PO DAILY 12/13/21 02/20/23 12/12/21 History (Invokana) clozapine 200 mg tablet 1 tab PO BEDTIME 12/13/21 02/20/23 12/12/21 History ferrous sulfate 325 mg (65 mg 325 mg PO DAILY@1700 12/13/21 02/20/23 12/12/21 History iron) tablet insulin glargine 100 unit/mL (3 20 unit subcut BEDTIME 12/13/21 02/20/23 12/12/21 History mL) subcutaneous pen (Lantus Solostar U-100 Insulin) lactulose 10 gram/15 mL oral 30 ml PO DAILY 12/13/21 02/20/23 12/12/21 History solution levothyroxine 75 mcg tablet 1 tab PO DAILY@0600 12/13/21 02/20/23 12/12/21 History linagliptin 5 mg tablet (Tradjenta) 1 tab PO DAILY 12/13/21 02/20/23 12/12/21 History omega [id number]-xzf-nhl-fish oil 1,000 mg 1 cap PO BID 12/13/21 02/20/23 12/12/21 History (120 mg-180 mg) capsule (Fish Oil) pantoprazole 40 mg tablet,delayed 1 tab PO BID@0630,1630 12/13/21 02/20/23 12/12/21 History release metformin 500 mg tablet 1,000 mg PO BID 12/27/22 02/20/23 Unknown History nicotine 7 mg/24 hr daily 1 patch transdermal Q24H PRN 12/27/22 02/20/23 Unknown History transdermal patch Smoking Cessation nystatin 100,000 unit/gram topical 1 appl topical BID 12/27/22 02/20/23 Unknown History powder sennosides 8.6 mg tablet (senna) 8.6 mg PO DAILY PRN Constipation 12/27/22 02/20/23 Unknown History metoprolol tartrate 25 mg tablet 12.5 mg PO BID 02/20/23 02/20/23 Unknown History zinc oxide 1 appl topical QSHIFT 02/20/23 02/20/23 Unknown History Exam Exam Date and Time: February 23, 2023 1115 Height,Weight and Vital Signs: Height 5 ft 11 in Weight 80.4 kg Last Vital Signs Temp 97.8 F 02/23/23 11:20 Pulse 125 H 02/23/23 11:20 Resp 16 02/23/23 11:20 BP 107/70 02/23/23 11:20 Pulse Ox 95 02/23/23 11:20 O2 Del Method Nasal Cannula 02/23/23 11:20 O2 Flow Rate 2 02/23/23 11:20 Oxygen Flow Rate 2 02/23/23 05:00 Pertinent Lab Results Pertinent Lab Results: Laboratory Tests 02/20/23 02/20/23 02/20/23 01:56 02:07 02:07 WBC 19.2 H RBC 5.37 Hgb 14.7 Hct 45.2 MCV 84.2 MCH 27.4 MCHC 32.5 RDW 15.7 Plt Count 307 D MPV 10.9 Immature Gran % (Auto) 0.6 H Neut % (Auto) 83.6 H Lymph % (Auto) 8.3 L [place] % (Auto) 6.9 Eos % (Auto) 0.3 Baso % (Auto) 0.3 Lymph # (Auto) 1.6 [place] # (Auto) 1.3 H Eos # (Auto) 0.1 Baso # (Auto) 0.1 Abs Immat Gran (auto) 0.12 H Absolute Neuts (auto) 16.1 H Absolute Nucleated RBC 0.000 Nucleated RBC % (auto) 0.0 PT INR D-Dimer High Sensitivty 237 VBG pH VBG pCO2 VBG pO2 VBG HCO3 VBG O2 Saturation VBG Base Excess Sodium Potassium Chloride Carbon Dioxide Anion Gap BUN Creatinine Estim Creat Clear Calc Estimated GFR POC Glucose 273 H Random Glucose Fasting Glucose Lactic Acid Lactic Acid F/U @ 2Hr Lactic Acid F/U @ 4Hr Calcium Total Bilirubin AST ALT Alkaline Phosphatase Troponin I High Sens B-Natriuretic Peptide Total Protein Albumin Urine Color Urine Appearance Urine pH Ur Specific [place] Urine Protein Urine Glucose (UA) Urine Ketones Urine Blood Urine Nitrite Ur Leukocyte Esterase Urine RBC Urine WBC Ur Squamous Epith Cells Urine Bacteria Hyaline Casts Urine Yeast Blood Type Antibody Screen 02/20/23 02/20/23 02/20/23 02:07 02:07 02:07 WBC RBC Hgb Hct MCV MCH MCHC RDW Plt Count MPV Immature Gran % (Auto) Neut % (Auto) Lymph % (Auto) [place] % (Auto) Eos % (Auto) Baso % (Auto) Lymph # (Auto) [place] # (Auto) Eos # (Auto) Baso # (Auto) Abs Immat Gran (auto) Absolute Neuts (auto) Absolute Nucleated RBC Nucleated RBC % (auto) PT INR D-Dimer High Sensitivty VBG pH VBG pCO2 VBG pO2 VBG HCO3 VBG O2 Saturation VBG Base Excess Sodium 141 Potassium 4.1 Chloride 108 Carbon Dioxide 16 L Anion Gap 21 H BUN 40 H Creatinine 1.27 Estim Creat Clear Calc 63.4 Estimated GFR 57 POC Glucose Random Glucose 296 H Fasting Glucose Lactic Acid 5.4 H* Lactic Acid F/U @ 2Hr Lactic Acid F/U @ 4Hr Calcium 10.6 H D Total Bilirubin 0.7 AST 13 ALT 14 Alkaline Phosphatase 110 Troponin I High Sens < 2.7 B-Natriuretic Peptide Total Protein 7.6 Albumin 4.3 Urine Color Urine Appearance Urine pH Ur Specific [place] Urine Protein Urine Glucose (UA) Urine Ketones Urine Blood Urine Nitrite Ur Leukocyte Esterase Urine RBC Urine WBC Ur Squamous Epith Cells Urine Bacteria Hyaline Casts Urine Yeast Blood Type Antibody Screen 02/20/23 02/20/23 02/20/23 02:07 02:07 02:10 WBC RBC Hgb Hct MCV MCH MCHC RDW Plt Count MPV Immature Gran % (Auto) Neut % (Auto) Lymph % (Auto) [place] % (Auto) Eos % (Auto) Baso % (Auto) Lymph # (Auto) [place] # (Auto) Eos # (Auto) Baso # (Auto) Abs Immat Gran (auto) Absolute Neuts (auto) Absolute Nucleated RBC Nucleated RBC % (auto) PT 20.3 H INR 1.7 H D-Dimer High Sensitivty VBG pH 7.38 VBG pCO2 28 VBG pO2 71 VBG HCO3 17 L VBG O2 Saturation 90.0 VBG Base Excess -6.3 Sodium Potassium Chloride Carbon Dioxide Anion Gap BUN Creatinine Estim Creat Clear Calc Estimated GFR POC Glucose Random Glucose Fasting Glucose Lactic Acid Lactic Acid F/U @ 2Hr Lactic Acid F/U @ 4Hr Calcium Total Bilirubin AST ALT Alkaline Phosphatase Troponin I High Sens B-Natriuretic Peptide 60 Total Protein Albumin Urine Color Urine Appearance Urine pH Ur Specific [place] Urine Protein Urine Glucose (UA) Urine Ketones Urine Blood Urine Nitrite Ur Leukocyte Esterase Urine RBC Urine WBC Ur Squamous Epith Cells Urine Bacteria Hyaline Casts Urine Yeast Blood Type Antibody Screen 02/20/23 02/20/23 02/20/23 03:27 04:22 08:11 WBC RBC Hgb Hct MCV MCH MCHC RDW Plt Count MPV Immature Gran % (Auto) Neut % (Auto) Lymph % (Auto) [place] % (Auto) Eos % (Auto) Baso % (Auto) Lymph # (Auto) [place] # (Auto) Eos # (Auto) Baso # (Auto) Abs Immat Gran (auto) Absolute Neuts (auto) Absolute Nucleated RBC Nucleated RBC % (auto) PT INR D-Dimer High Sensitivty VBG pH VBG pCO2 VBG pO2 VBG HCO3 VBG O2 Saturation VBG Base Excess Sodium Potassium Chloride Carbon Dioxide Anion Gap BUN Creatinine Estim Creat Clear Calc Estimated GFR POC Glucose 152 H Random Glucose Fasting Glucose Lactic Acid Lactic Acid F/U @ 2Hr 4.3 H* Lactic Acid F/U @ 4Hr Calcium Total Bilirubin AST ALT Alkaline Phosphatase Troponin I High Sens B-Natriuretic Peptide Total Protein Albumin Urine Color Yellow Urine Appearance Cloudy Urine pH 5.5 Ur Specific [place] >= 1.030 H Urine Protein Negative Urine Glucose (UA) >=1000 H Urine Ketones Negative Urine Blood Negative Urine Nitrite Negative Ur Leukocyte Esterase Negative Urine RBC 6-10 H Urine WBC 11-20 H Ur Squamous Epith Cells 0-2 Urine Bacteria None Seen Hyaline Casts 0-2 Urine Yeast Present Blood Type Antibody Screen 02/20/23 02/20/23 02/20/23 08:33 11:05 16:03 WBC RBC Hgb Hct MCV MCH MCHC RDW Plt Count MPV Immature Gran % (Auto) Neut % (Auto) Lymph % (Auto) [place] % (Auto) Eos % (Auto) Baso % (Auto) Lymph # (Auto) [place] # (Auto) Eos # (Auto) Baso # (Auto) Abs Immat Gran (auto) Absolute Neuts (auto) Absolute Nucleated RBC Nucleated RBC % (auto) PT INR D-Dimer High Sensitivty VBG pH VBG pCO2 VBG pO2 VBG HCO3 VBG O2 Saturation VBG Base Excess Sodium Potassium Chloride Carbon Dioxide Anion Gap BUN Creatinine Estim Creat Clear Calc Estimated GFR POC Glucose 117 H 88 Random Glucose Fasting Glucose Lactic Acid Lactic Acid F/U @ 2Hr Lactic Acid F/U @ 4Hr 3.0 H* Calcium Total Bilirubin AST ALT Alkaline Phosphatase Troponin I High Sens B-Natriuretic Peptide Total Protein Albumin Urine Color Urine Appearance Urine pH Ur Specific [place] Urine Protein Urine Glucose (UA) Urine Ketones Urine Blood Urine Nitrite Ur Leukocyte Esterase Urine RBC Urine WBC Ur Squamous Epith Cells Urine Bacteria Hyaline Casts Urine Yeast Blood Type Antibody Screen 02/20/23 02/21/23 02/21/23 19:38 07:16 09:17 WBC RBC Hgb Hct MCV MCH MCHC RDW Plt Count MPV Immature Gran % (Auto) Neut % (Auto) Lymph % (Auto) [place] % (Auto) Eos % (Auto) Baso % (Auto) Lymph # (Auto) [place] # (Auto) Eos # (Auto) Baso # (Auto) Abs Immat Gran (auto) Absolute Neuts (auto) Absolute Nucleated RBC Nucleated RBC % (auto) PT INR D-Dimer High Sensitivty VBG pH VBG pCO2 VBG pO2 VBG HCO3 VBG O2 Saturation VBG Base Excess Sodium Potassium Chloride Carbon Dioxide Anion Gap BUN Creatinine Estim Creat Clear Calc Estimated GFR POC Glucose 80 67 149 H Random Glucose Fasting Glucose Lactic Acid Lactic Acid F/U @ 2Hr Lactic Acid F/U @ 4Hr Calcium Total Bilirubin AST ALT Alkaline Phosphatase Troponin I High Sens B-Natriuretic Peptide Total Protein Albumin Urine Color Urine Appearance Urine pH Ur Specific [place] Urine Protein Urine Glucose (UA) Urine Ketones Urine Blood Urine Nitrite Ur Leukocyte Esterase Urine RBC Urine WBC Ur Squamous Epith Cells Urine Bacteria Hyaline Casts Urine Yeast Blood Type Antibody Screen 02/21/23 02/21/23 02/21/23 11:06 16:00 20:22 WBC RBC Hgb Hct MCV MCH MCHC RDW Plt Count MPV Immature Gran % (Auto) Neut % (Auto) Lymph % (Auto) [place] % (Auto) Eos % (Auto) Baso % (Auto) Lymph # (Auto) [place] # (Auto) Eos # (Auto) Baso # (Auto) Abs Immat Gran (auto) Absolute Neuts (auto) Absolute Nucleated RBC Nucleated RBC % (auto) PT INR D-Dimer High Sensitivty VBG pH VBG pCO2 VBG pO2 VBG HCO3 VBG O2 Saturation VBG Base Excess Sodium Potassium Chloride Carbon Dioxide Anion Gap BUN Creatinine Estim Creat Clear Calc Estimated GFR POC Glucose 104 237 H 308 H Random Glucose Fasting Glucose Lactic Acid Lactic Acid F/U @ 2Hr Lactic Acid F/U @ 4Hr Calcium Total Bilirubin AST ALT Alkaline Phosphatase Troponin I High Sens B-Natriuretic Peptide Total Protein Albumin Urine Color Urine Appearance Urine pH Ur Specific [place] Urine Protein Urine Glucose (UA) Urine Ketones Urine Blood Urine Nitrite Ur Leukocyte Esterase Urine RBC Urine WBC Ur Squamous Epith Cells Urine Bacteria Hyaline Casts Urine Yeast Blood Type Antibody Screen 02/22/23 02/22/23 02/22/23 07:21 11:20 16:39 WBC RBC Hgb Hct MCV MCH MCHC RDW Plt Count MPV Immature Gran % (Auto) Neut % (Auto) Lymph % (Auto) [place] % (Auto) Eos % (Auto) Baso % (Auto) Lymph # (Auto) [place] # (Auto) Eos # (Auto) Baso # (Auto) Abs Immat Gran (auto) Absolute Neuts (auto) Absolute Nucleated RBC Nucleated RBC % (auto) PT INR D-Dimer High Sensitivty VBG pH VBG pCO2 VBG pO2 VBG HCO3 VBG O2 Saturation VBG Base Excess Sodium Potassium Chloride Carbon Dioxide Anion Gap BUN Creatinine Estim Creat Clear Calc Estimated GFR POC Glucose 115 148 H 205 H Random Glucose Fasting Glucose Lactic Acid Lactic Acid F/U @ 2Hr Lactic Acid F/U @ 4Hr Calcium Total Bilirubin AST ALT Alkaline Phosphatase Troponin I High Sens B-Natriuretic Peptide Total Protein Albumin Urine Color Urine Appearance Urine pH Ur Specific [place] Urine Protein Urine Glucose (UA) Urine Ketones Urine Blood Urine Nitrite Ur Leukocyte Esterase Urine RBC Urine WBC Ur Squamous Epith Cells Urine Bacteria Hyaline Casts Urine Yeast Blood Type Antibody Screen 02/22/23 02/23/23 02/23/23 21:26 06:03 06:03 WBC 12.8 H RBC 4.88 Hgb 13.4 L Hct 42.0 MCV 86.1 MCH 27.5 MCHC 31.9 RDW 15.4 Plt Count 184 D MPV 11.4 Immature Gran % (Auto) Neut % (Auto) Lymph % (Auto) [place] % (Auto) Eos % (Auto) Baso % (Auto) Lymph # (Auto) [place] # (Auto) Eos # (Auto) Baso # (Auto) Abs Immat Gran (auto) Absolute Neuts (auto) Absolute Nucleated RBC 0.000 Nucleated RBC % (auto) 0.0 PT INR D-Dimer High Sensitivty VBG pH VBG pCO2 VBG pO2 VBG HCO3 VBG O2 Saturation VBG Base Excess Sodium 150 H Potassium 2.6 L D Chloride 115 H Carbon Dioxide 16 L Anion Gap 22 H BUN 15 Creatinine 0.71 Estim Creat Clear Calc 113.4 Estimated GFR > 60 POC Glucose 105 Random Glucose Fasting Glucose 77 Lactic Acid Lactic Acid F/U @ 2Hr Lactic Acid F/U @ 4Hr Calcium 9.1 D Total Bilirubin AST ALT Alkaline Phosphatase Troponin I High Sens B-Natriuretic Peptide Total Protein Albumin Urine Color Urine Appearance Urine pH Ur Specific [place] Urine Protein Urine Glucose (UA) Urine Ketones Urine Blood Urine Nitrite Ur Leukocyte Esterase Urine RBC Urine WBC Ur Squamous Epith Cells Urine Bacteria Hyaline Casts Urine Yeast Blood Type Antibody Screen 02/23/23 02/23/23 02/23/23 07:37 11:31 11:52 WBC RBC Hgb Hct MCV MCH MCHC RDW Plt Count MPV Immature Gran % (Auto) Neut % (Auto) Lymph % (Auto) [place] % (Auto) Eos % (Auto) Baso % (Auto) Lymph # (Auto) [place] # (Auto) Eos # (Auto) Baso # (Auto) Abs Immat Gran (auto) Absolute Neuts (auto) Absolute Nucleated RBC Nucleated RBC % (auto) PT INR D-Dimer High Sensitivty VBG pH VBG pCO2 VBG pO2 VBG HCO3 VBG O2 Saturation VBG Base Excess Sodium Potassium Chloride Carbon Dioxide Anion Gap BUN Creatinine Estim Creat Clear Calc Estimated GFR POC Glucose 67 111 Random Glucose Fasting Glucose Lactic Acid Lactic Acid F/U @ 2Hr Lactic Acid F/U @ 4Hr Calcium Total Bilirubin AST ALT Alkaline Phosphatase Troponin I High Sens B-Natriuretic Peptide Total Protein Albumin Urine Color Urine Appearance Urine pH Ur Specific [place] Urine Protein Urine Glucose (UA) Urine Ketones Urine Blood Urine Nitrite Ur Leukocyte Esterase Urine RBC Urine WBC Ur Squamous Epith Cells Urine Bacteria Hyaline Casts Urine Yeast Blood Type O Positive Antibody Screen NEGATIVE Airway Mallampati Class: II TM Dist: >3cm Heart: S1S2 Lungs: Bilateral crackles Other: Edentulous Assessment and Plan Assessment Anesthesia Assessment: Anesthesia Plan Discussed and Chart Reviewed Final Anesthetic Review Family History of Problems with Anesthesia: No History of Problems with Anesthesia: No NPO: Yes ASA Class: III and Emergency Final Preanesthetic Review: No Changes in Pt Med Stat, Meds/Allgs Chart Reviewed, Consent Obtained/Reviewed and Anes Risks/Benef Reviewed Patient Risk: Intermediate Procedure Risk: Intermediate Anesthetic Plan Anesthetic Plan: GA and Agree w/ Assess. and Plan Disposition: Standard PACU
--- NOTE | 2023-02-23 13:24 | P.OP_ITS ---
Operative Note Operative Note Date of Service: 02/23/23 Narrative: Preoperative diagnosis: [] sigmoid volvulus, recurrent postop diagnosis same Procedure [] exploratory laparotomy, De torsion of sigmoid volvulus, sigmoid resection, end colostomy, Hafsa's pouch Surgeon: [] Rodrick Splitting Machine Operator: [] angela Vargas Type of Anesthesia: [] general Indication for surgery: [] patient presents with recurrent persistent sigmoid volvulus. Intraoperative findings demonstrated massively dilated and torsion of sigmoid colon. Diameter measured approximately 25-30 cm of sigmoid colon. Patient had a competent ileocecal valve and had dilation to large diameter of his entire colon with decompression into the small bowel. Findings: [] patient is brought to the operating room, placed on the operative table in a supine position, after adequate level of general anesthesia was induced, the patient's abdomen was prepped and draped in usual sterile fashion. Using a lower midline incision, this was carried down through skin, subcutaneous tissue and linea alba. Posterior fascia and peritoneum were opened and extended along the length of incision . Packs and retractors were placed to enhance exposure. Patient had massively dilated entire colon. He had a volvulus involving profoundly massively dilated sigmoid colon where it was literally the size of a truck tire inner tube sigmoid colon with was twisted upon itself at the base of its mesentery. Dissection down to the rectosigmoid was undertaken where a SUNSHINE stapler was used to transect the bowel at this site. Next the sigmoid colon was with much difficulty untwisted and brought onto the field. No other gross abdominal pathology was identified with exploration aside from the markedly dilated colon throughout.. Massively dilated abnormal sigmoid colon mesentery was then taken down using double firing of ligature device on the bowel/ mesenteric border. This was performed up to the sigmoid/descending colon junction. Proximal bowel was then transected using SUNSHINE staplers and the specimen sent to pathology. With adequately mobilized proximal descending colon, a ostomy site was performed in the left lower quadrant using muscle-splitting incision. Abdominal cavity was irrigated secured hemostasis. Ostomy was appropriately oriented and brought out through the ostomy site. Midline wound was closed using running 0. PDS suture followed by interrupted inverted dermal 3-0 Vicryl sutures and Steri-Strips and dressing. Markedly dilated Ostomy was then secured to the ostomy site using seromuscular 2 dermal interrupted 3-0 Vicryl sutures. Because of the significant dilation, this was not fully matured. A completion procedure, ostomy was pink and viable. Ostomy appliance was then placed. Sponge, needle, instrument counts reported correct. Patient tolerated the procedure and emerged from anesthesia stable condition to continue restorative measures. EBL minimal his home off on the weekend were friend was intact I and nurse was sent as or she has a 30 days she is well with the ICU factors have left kidney challenging my shortness then your 10 year genna Fisher used Ativan early
[2023-02-23 13:53] LABS: Anion Gap 23 (12-20); Blood Urea Nitrogen 16 mg/dL (9-16); Calcium 9.1 mg/dL (8.4-10.2); Carbon Dioxide 16 mmol/L (22-29); Chloride 115 mmol/L (96-108); Creatinine Clr Calc Pharmacy 99.4; Estimated Glomerular Filt Rate > 60; Glucose Random 108 mg/dL (60-115); Potassium 3.1 mmol/L (3.3-5.1); Sodium 151 mmol/L (135-145)
--- NOTE | 2023-02-23 16:29 | PM.CCN ---
Critical Care Event Note Summary Date of Service: 02/23/23 Code activated: No Narrative: 62-year-old gentleman with underlying CAD status post CABG, AFib, COPD, diabetes mellitus, hypothyroidism, schizophrenia from [facility] admitted on 02/20/2023 with abdominal distention and hypoxemia secondary to sigmoid volvulus to hospitalist service, initially managed conservatively, now status post sigmoidectomy a with colostomy being monitored in the intensive care unit in the immediate postop period. Critical Care Time (minutes): 0
[2023-02-23] MEDS: Dextrose 5 % and Lactated Ring 1,000 ML 150 ML IVCONT (17:14)
[2023-02-23] MEDS: Acetaminophen 1,000 MG/100 ML PIGGYBACK 400 MG IV ×2 (17:14→22:27)
[2023-02-23] MEDS: 0.9 % Sodium Chloride Flush 3 ML SYRINGE IVFLUSH (17:14)
[2023-02-23 17:46] LABS: Glucose, Whole Blood 125 mg/dL (60-115)
[2023-02-23 20:06] LABS: Glucose, Whole Blood 174 mg/dL (60-115)
[2023-02-23 22:04] LABS: MANUAL DIFF FLAG NO
[2023-02-23 22:09] LABS: Basophils Percent Auto 0.2 % (0-2); Hematocrit 35.2 % (42.0-52.0); Hemoglobin 11.5 g/dl (14.0-18.0); Imm Gran Abs Auto 0.07 X10*3/uL (0.00-0.03); Imm Gran Pct Auto 0.5 % (0.0-0.4); Lymphocytes Absolute Auto 0.6 X10*3/uL (1.2-4.9); Lymphocytes Percent Auto 4.5 % (20-40); Mean Corpuscular HGB Conc 32.7 g/dl (31.0-36.0); Mean Corpuscular Hemoglobin 27.6 pg (27.0-33.0); Mean Corpuscular Volume 84.4 fL (80.0-98.0); Mean Platelet Volume 10.4 fL (9.4-12.4); Monocytes Absolute Auto 0.7 X10*3/uL (0.1-1.2); Monocytes Percent Auto 5.4 % (2-11); Neutrophils Percent Auto 89.4 % (45-73); Platelet Count 192 X10*3/uL (160-400); Red Blood Count 4.17 X10*6/uL (4.60-5.80); Red Cell Distribution Width 15.6 % (11.0-16.0); White Blood Count 13.5 X10*3/uL (4.8-10.8)
[2023-02-23 22:09] LABS: VBG Base Excess -4.7 mmol/L; VBG HCO3 17 mmol/L (22-26); VBG pCO2 22 mmHg; VBG pH 7.47 (7.32-7.43); VBG pO2 112 mmHg
[2023-02-23 22:10] LABS: Venous Blood Gas Refer to POC result
[2023-02-23 22:24] LABS: Alanine Aminotransferase 15 U/L (0-40); Albumin Level 2.8 g/dL (3.5-5.0); Alkaline Phosphatase 67 U/L (39-117); Anion Gap 17 (12-20); Aspartate Amino Transferase 22 U/L (5-37); Bilirubin Total 0.8 mg/dL (0.0-1.0); Blood Urea Nitrogen 16 mg/dL (9-16); Calcium 8.5 mg/dL (8.4-10.2); Carbon Dioxide 18 mmol/L (22-29); Chloride 117 mmol/L (96-108); Creatinine Clr Calc Pharmacy 93.6; Estimated Glomerular Filt Rate > 60; Glucose Random 201 mg/dL (60-115); Potassium 4.2 mmol/L (3.3-5.1); Sodium 148 mmol/L (135-145); Total Protein 5.5 g/dL (6.5-8.0)
[2023-02-24] VITALS (18 sets, daily range): BP systolic 101–132; BP diastolic 60–83; PULSE 92–120; RESP 13–28; TEMP 36–36.9; O2SAT 91–97
[2023-02-24] MEDS: Piperacillin Sodium/Tazobactam 3.375 GM in 0.9 % Sodium Chloride 50 ML IV ×4 (04:28→21:23)
[2023-02-24 04:54] LABS: MANUAL DIFF FLAG NO
[2023-02-24 04:56] LABS: Basophils Percent Auto 0.3 % (0-2); Eosinophils Percent Auto 0.3 % (0-4); Hematocrit 34.8 % (42.0-52.0); Hemoglobin 11.2 g/dl (14.0-18.0); Imm Gran Abs Auto 0.04 X10*3/uL (0.00-0.03); Imm Gran Pct Auto 0.4 % (0.0-0.4); Lymphocytes Percent Auto 10.5 % (20-40); Mean Corpuscular HGB Conc 32.2 g/dl (31.0-36.0); Mean Corpuscular Hemoglobin 27.4 pg (27.0-33.0); Mean Corpuscular Volume 85.1 fL (80.0-98.0); Mean Platelet Volume 10.5 fL (9.4-12.4); Monocytes Absolute Auto 0.9 X10*3/uL (0.1-1.2); Monocytes Percent Auto 8.9 % (2-11); Neutrophils Absolute Auto 7.7 x10*3/uL (2.0-8.3); Neutrophils Percent Auto 79.6 % (45-73); Platelet Count 180 X10*3/uL (160-400); Red Blood Count 4.09 X10*6/uL (4.60-5.80); Red Cell Distribution Width 15.5 % (11.0-16.0); White Blood Count 9.6 X10*3/uL (4.8-10.8)
[2023-02-24 05:01] LABS: VBG Base Excess -0.4 mmol/L; VBG HCO3 21 mmol/L (22-26); VBG pCO2 25 mmHg; VBG pH 7.52 (7.32-7.43); VBG pO2 64 mmHg
[2023-02-24 05:05] LABS: Venous Blood Gas Refer to POC result
[2023-02-24 05:15] LABS: Alanine Aminotransferase 14 U/L (0-40); Albumin Level 2.8 g/dL (3.5-5.0); Alkaline Phosphatase 65 U/L (39-117); Anion Gap 14 (12-20); Aspartate Amino Transferase 20 U/L (5-37); Bilirubin Total 0.8 mg/dL (0.0-1.0); Blood Urea Nitrogen 14 mg/dL (9-16); Carbon Dioxide 21 mmol/L (22-29); Chloride 119 mmol/L (96-108); Creatinine Clr Calc Pharmacy 101.9; Estimated Glomerular Filt Rate > 60; Glucose Fasting 209 mg/dL (60-99); Glucose Random 209 mg/dL (60-115); Magnesium 1.7 mg/dL (1.6-2.6); Phosphorus 2.1 mg/dL (2.7-4.5); Potassium 3.8 mmol/L (3.3-5.1); Sodium 150 mmol/L (135-145); Total Protein 5.6 g/dL (6.5-8.0)
[2023-02-24] MEDS: Acetaminophen 1,000 MG/100 ML PIGGYBACK 400 MG IV ×3 (05:33→16:30)
[2023-02-24] MEDS: Potassium Phosphate/NS 15 MMOL/250 ML PLAST..BAG 62.5 MMOL IV (05:33)
[2023-02-24] MEDS: Dextrose 5 % and Lactated Ring 1,000 ML 150 ML IVCONT ×2 (05:34)
[2023-02-24] MEDS: Albumin Human 25 % 100 ML IV ×4 (05:34→22:36)
[2023-02-24] MEDS: Insulin Lispro 100 UNIT/ML 3 ML VIAL SUBCUT (05:50)
--- NOTE | 2023-02-24 08:00 | PM.PNGS ---
Subjective Subjective Date of Service: 02/24/23 Interval history: Transferred to ICU following sigmoid resection for correction of metabolic imbalances. No events overnight. Patient denies pain this morning. Physical Exam Vital Signs: Vital Signs: Last Vital Signs Temp 98.0 F 02/24/23 01:00 Pulse 96 02/24/23 07:00 Resp 20 02/24/23 07:00 BP 110/64 02/24/23 07:00 Pulse Ox 94 02/24/23 07:00 O2 Del Method Room Air 02/24/23 07:00 O2 Flow Rate 2 02/23/23 15:21 Oxygen Flow Rate 2 02/23/23 05:00 BMI result Body Mass Index 24.7 Const: General: comfortable and no acute distress Resp: Effort & Inspection: normal respiratory effort Cardio: Rate: regular rate GI: Other: ostomy pink, no stool or gas output Inspection: No distended and Yes incision (dressing c/d/i) Palpation (GI): Soft to palpation, Tenderness to palpation present (GI) (incisional), no guarding and not rigid Percussion: Yes tympanic to percussion (mild, improved) Skin: General skin exam: no rashes or lesions noted Neuro: General: moves all extremities Objective Data Active Medications Dextrose (Dextrose 50 % 25 Gm/50 Ml Syringe) 25 gm IVPUSH Q15M PRN; Protocol PRN Reason: per Hypoglycemia Standing Ord. Last Admin: 02/21/23 07:53 Dose: 25 gm Documented By: PORTAI Comments: bg 67 Glucose (Glucose Gel 15 Gm Gel..Gram.) 15 gm PO Q15M PRN; Protocol PRN Reason: per Hypoglycemia Standing Ord. Hydromorphone HCl (Hydromorphone Hcl 0.5 Mg/0.5 Ml Syringe) 0.5 mg IVPUSH Q3H PRN; Protocol PRN Reason: Pain, Severe (Pain Scale 7-10) Piperacillin Sod/Tazobactam (Sod 3.375 gm/ Sodium Chloride) 50 mls @ 100 mls/hr IV Q6H [facility] Last Infusion: 02/24/23 04:40 Dose: 0 mls/hr Documented By: MILO Acetaminophen (Ofirmev) 1,000 mg in 100 mls @ 400 mls/hr IV Q6H [facility] Last Infusion: 02/24/23 05:48 Dose: 0 mls/hr Documented By: MILO Potassium Phosphate (Kphos) 15 mmol in 250 mls @ 62.5 mls/hr IV ONCE ONE Stop: 02/24/23 09:21 Last Admin: 02/24/23 05:33 Dose: 62.5 mls/hr Documented By: MILO Albumin Human (Kedbumin 25 %) 100 mls @ 100 mls/hr IV Q6H [facility] Stop: 02/25/23 00:29 Last Infusion: 02/24/23 06:02 Dose: 0 mls/hr Documented By: MILO Dextrose (D5w) 1,000 mls @ 150 mls/hr IVCONT .Q6H40M [facility] Insulin Human Lispro (Insulin Lispro 100 Unit/Ml 3 Ml Vial) 0 unit SUBCUT Q6H [facility]; Protocol Last Admin: 02/24/23 05:50 Dose: 4 unit Documented By: MILO Metoprolol Tartrate (Metoprolol Tartrate 5 Mg/5 Ml Vial) 5 mg IVPUSH Q6H PRN PRN Reason: Heart Rate >100 Last Admin: 02/22/23 21:01 Dose: 5 mg Documented By: JOSEPH Pharmacy Consult (Consult Rx Perform Med Rec) 1 each MISCELLANE ONCE PRN PRN Reason: Consult order Sodium Chloride (0.9 % Sodium Chloride Flush 3 Ml Syringe) [facility] Last Admin: 02/24/23 07:31 Dose: Not Given Documented By: EYAD Non-Admin Reason: IV Running Labs 02/24/23 04:39 02/24/23 04:39 Labs: Laboratory Results - last 24 hr 02/23/23 02/23/23 02/23/23 11:31 11:52 11:52 MCV MCH MCHC RDW Plt Count MPV Immature Gran % (Auto) Neut % (Auto) Lymph % (Auto) [place] % (Auto) Eos % (Auto) Baso % (Auto) Lymph # (Auto) [place] # (Auto) Eos # (Auto) Baso # (Auto) Abs Immat Gran (auto) Absolute Neuts (auto) Absolute Nucleated RBC Nucleated RBC % (auto) VBG pH VBG pCO2 VBG pO2 VBG HCO3 VBG O2 Saturation VBG Base Excess Anion Gap 23 H Estim Creat Clear Calc 99.4 Estimated GFR > 60 POC Glucose 111 Random Glucose 108 Fasting Glucose Calcium 9.1 Phosphorus Magnesium Total Bilirubin AST ALT Alkaline Phosphatase Total Protein Albumin Blood Type O Positive Antibody Screen NEGATIVE 02/23/23 02/23/23 02/23/23 17:34 20:02 21:59 MCV 84.4 MCH 27.6 MCHC 32.7 RDW 15.6 Plt Count 192 MPV 10.4 Immature Gran % (Auto) 0.5 H Neut % (Auto) 89.4 H Lymph % (Auto) 4.5 L [place] % (Auto) 5.4 Eos % (Auto) 0.0 Baso % (Auto) 0.2 Lymph # (Auto) 0.6 L [place] # (Auto) 0.7 Eos # (Auto) 0.0 Baso # (Auto) 0.0 Abs Immat Gran (auto) 0.07 H Absolute Neuts (auto) 12.0 H Absolute Nucleated RBC 0.000 Nucleated RBC % (auto) 0.0 VBG pH VBG pCO2 VBG pO2 VBG HCO3 VBG O2 Saturation VBG Base Excess Anion Gap Estim Creat Clear Calc Estimated GFR POC Glucose 125 H 174 H Random Glucose Fasting Glucose Calcium Phosphorus Magnesium Total Bilirubin AST ALT Alkaline Phosphatase Total Protein Albumin Blood Type Antibody Screen 02/23/23 02/23/23 02/24/23 21:59 22:02 04:39 MCV MCH MCHC RDW Plt Count MPV Immature Gran % (Auto) Neut % (Auto) Lymph % (Auto) [place] % (Auto) Eos % (Auto) Baso % (Auto) Lymph # (Auto) [place] # (Auto) Eos # (Auto) Baso # (Auto) Abs Immat Gran (auto) Absolute Neuts (auto) Absolute Nucleated RBC Nucleated RBC % (auto) VBG pH 7.47 H VBG pCO2 22 VBG pO2 112 VBG HCO3 17 L VBG O2 Saturation 100.0 VBG Base Excess -4.7 Anion Gap 17 14 Estim Creat Clear Calc 93.6 101.9 Estimated GFR > 60 > 60 POC Glucose Random Glucose 201 H 209 H Fasting Glucose 209 H Calcium 8.5 D 9.0 Phosphorus 2.1 L Magnesium 1.7 Total Bilirubin 0.8 0.8 AST 22 20 ALT 15 14 Alkaline Phosphatase 67 65 Total Protein 5.5 L 5.6 L Albumin 2.8 L 2.8 L Blood Type Antibody Screen 02/24/23 02/24/23 04:39 04:49 MCV 85.1 MCH 27.4 MCHC 32.2 RDW 15.5 Plt Count 180 MPV 10.5 Immature Gran % (Auto) 0.4 Neut % (Auto) 79.6 H Lymph % (Auto) 10.5 L [place] % (Auto) 8.9 Eos % (Auto) 0.3 Baso % (Auto) 0.3 Lymph # (Auto) 1.0 L [place] # (Auto) 0.9 Eos # (Auto) 0.0 Baso # (Auto) 0.0 Abs Immat Gran (auto) 0.04 H Absolute Neuts (auto) 7.7 Absolute Nucleated RBC 0.000 Nucleated RBC % (auto) 0.0 VBG pH 7.52 H VBG pCO2 25 VBG pO2 64 VBG HCO3 21 L VBG O2 Saturation 92.0 VBG Base Excess -0.4 Anion Gap Estim Creat Clear Calc Estimated GFR POC Glucose Random Glucose Fasting Glucose Calcium Phosphorus Magnesium Total Bilirubin AST ALT Alkaline Phosphatase Total Protein Albumin Blood Type Antibody Screen Microbiology Microbiology Results: Microbiology 02/20/23 Unknown Urine Culture - Final Urine Catheterized - Straight Catheter Jessica glabrata Procedures Date of Service Date of Service: 02/24/23 Progress Note: A&P Assessment and plan (1) Volvulus of sigmoid colon: Status: Acute (2) S/P colectomy: Status: Acute Plan 62 year old male admitted with sigmoid volvulus now POD #1 s/p exploratory laparotomy,?detorsion of sigmoid volvulus, sigmoid resection, end colostomy, Hafsa's pouch. Patient doing well post op. Abd less distended this am, dressing c/d/i, ostomy viable appearing. Continue pain control. Await colostomy output. OOB, IS use. Can trial clear liquids. Electrolytes being corrected. Remainder of care per ICU team, likely to telemetry today. Time Spent With Patient Time: Total time managing care of this patient today ____ minutes. Quality Stroke Does the patient have a stroke diagnosis?: No VTE Prior VTE?: No VTE Risk Level:: Medical - moderate - high VTE Device Contraindication: Treatment Not Indicated VTE Drug Contraindication: N/A - Med Ordered
[2023-02-24] MEDS: Dextrose 5 % 1,000 ML 150 ML IVCONT ×3 (08:06→21:29)
--- NOTE | 2023-02-24 09:05 | P.PNCC_ITS ---
Subjective Subjective Date of Service: 02/24/23 Interval History: 62-year-old gentleman with underlying CAD status post CABG, AFib, COPD, diabetes mellitus, hypothyroidism, schizophrenia from [facility] admitted on 02/20/2023 with abdominal distention and hypoxemia secondary to sigmoid volvulus to hospitalist service, initially managed conservatively, now POD #1 status post sigmoidectomy a with colostomy being monitored in the intensive care unit in the immediate postop period, recovering well. No events overnight. Critical Care Time (minutes): 0 Physical Exam Vital Signs: Vital Signs: Last Vital Signs Temp 98.5 F 02/24/23 08:00 Pulse 96 02/24/23 09:00 Resp 25 H 02/24/23 09:00 BP 121/70 02/24/23 09:00 Pulse Ox 94 02/24/23 09:00 O2 Del Method Room Air 02/24/23 09:00 O2 Flow Rate 2 02/23/23 15:21 Oxygen Flow Rate 2 02/23/23 05:00 BMI result Body Mass Index 24.7 Const: General: no acute distress, alert and awake Eyes: Sclerae: sclerae normal EOM: EOMs intact bilaterally Neck: Neck: Yes no lymphadenopathy, Yes trachea midline and Yes supple Resp: Effort & Inspection: normal respiratory effort and no respiratory dis tress Auscultation: clear to auscultation bilaterally Cardio: Rate: regular rate Rhythm: regular rhythm Heart sounds: no gallops, no murmurs and no rubs GI: Palpation (GI): Soft to palpation and Other GI palpation findings present ( Nontender, ostomy with serosanguineous output) Auscultation: Hypoactive bowel sounds present Extrem: General: Yes no pedal edema, No clubbing and No cyanosis Objective Data Labs 02/24/23 04:39 02/24/23 04:39 Labs: Laboratory Results - last 24 hr 02/23/23 02/23/23 02/23/23 11:31 11:52 11:52 WBC RBC Hgb Hct MCV MCH MCHC RDW Plt Count MPV Immature Gran % (Auto) Neut % (Auto) Lymph % (Auto) [place] % (Auto) Eos % (Auto) Baso % (Auto) Lymph # (Auto) [place] # (Auto) Eos # (Auto) Baso # (Auto) Abs Immat Gran (auto) Absolute Neuts (auto) Absolute Nucleated RBC Nucleated RBC % (auto) VBG pH VBG pCO2 VBG pO2 VBG HCO3 VBG O2 Saturation VBG Base Excess Sodium 151 H Potassium 3.1 L Chloride 115 H Carbon Dioxide 16 L Anion Gap 23 H BUN 16 Creatinine 0.81 Estim Creat Clear Calc 99.4 Estimated GFR > 60 POC Glucose 111 Random Glucose 108 Fasting Glucose Calcium 9.1 Phosphorus Magnesium Total Bilirubin AST ALT Alkaline Phosphatase Total Protein Albumin Blood Type O Positive Antibody Screen NEGATIVE 02/23/23 02/23/23 02/23/23 17:34 20:02 21:59 WBC 13.5 H RBC 4.17 L Hgb 11.5 L Hct 35.2 L MCV 84.4 MCH 27.6 MCHC 32.7 RDW 15.6 Plt Count 192 MPV 10.4 Immature Gran % (Auto) 0.5 H Neut % (Auto) 89.4 H Lymph % (Auto) 4.5 L [place] % (Auto) 5.4 Eos % (Auto) 0.0 Baso % (Auto) 0.2 Lymph # (Auto) 0.6 L [place] # (Auto) 0.7 Eos # (Auto) 0.0 Baso # (Auto) 0.0 Abs Immat Gran (auto) 0.07 H Absolute Neuts (auto) 12.0 H Absolute Nucleated RBC 0.000 Nucleated RBC % (auto) 0.0 VBG pH VBG pCO2 VBG pO2 VBG HCO3 VBG O2 Saturation VBG Base Excess Sodium Potassium Chloride Carbon Dioxide Anion Gap BUN Creatinine Estim Creat Clear Calc Estimated GFR POC Glucose 125 H 174 H Random Glucose Fasting Glucose Calcium Phosphorus Magnesium Total Bilirubin AST ALT Alkaline Phosphatase Total Protein Albumin Blood Type Antibody Screen 02/23/23 02/23/23 02/24/23 21:59 22:02 04:39 WBC RBC Hgb Hct MCV MCH MCHC RDW Plt Count MPV Immature Gran % (Auto) Neut % (Auto) Lymph % (Auto) [place] % (Auto) Eos % (Auto) Baso % (Auto) Lymph # (Auto) [place] # (Auto) Eos # (Auto) Baso # (Auto) Abs Immat Gran (auto) Absolute Neuts (auto) Absolute Nucleated RBC Nucleated RBC % (auto) VBG pH 7.47 H VBG pCO2 22 VBG pO2 112 VBG HCO3 17 L VBG O2 Saturation 100.0 VBG Base Excess -4.7 Sodium 148 H 150 H Potassium 4.2 D 3.8 Chloride 117 H 119 H Carbon Dioxide 18 L 21 L Anion Gap 17 14 BUN 16 14 Creatinine 0.86 0.79 Estim Creat Clear Calc 93.6 101.9 Estimated GFR > 60 > 60 POC Glucose Random Glucose 201 H 209 H Fasting Glucose 209 H Calcium 8.5 D 9.0 Phosphorus 2.1 L Magnesium 1.7 Total Bilirubin 0.8 0.8 AST 22 20 ALT 15 14 Alkaline Phosphatase 67 65 Total Protein 5.5 L 5.6 L Albumin 2.8 L 2.8 L Blood Type Antibody Screen 02/24/23 02/24/23 04:39 04:49 WBC 9.6 RBC 4.09 L Hgb 11.2 L Hct 34.8 L MCV 85.1 MCH 27.4 MCHC 32.2 RDW 15.5 Plt Count 180 MPV 10.5 Immature Gran % (Auto) 0.4 Neut % (Auto) 79.6 H Lymph % (Auto) 10.5 L [place] % (Auto) 8.9 Eos % (Auto) 0.3 Baso % (Auto) 0.3 Lymph # (Auto) 1.0 L [place] # (Auto) 0.9 Eos # (Auto) 0.0 Baso # (Auto) 0.0 Abs Immat Gran (auto) 0.04 H Absolute Neuts (auto) 7.7 Absolute Nucleated RBC 0.000 Nucleated RBC % (auto) 0.0 VBG pH 7.52 H VBG pCO2 25 VBG pO2 64 VBG HCO3 21 L VBG O2 Saturation 92.0 VBG Base Excess -0.4 Sodium Potassium Chloride Carbon Dioxide Anion Gap BUN Creatinine Estim Creat Clear Calc Estimated GFR POC Glucose Random Glucose Fasting Glucose Calcium Phosphorus Magnesium Total Bilirubin AST ALT Alkaline Phosphatase Total Protein Albumin Blood Type Antibody Screen Microbiology Microbiology Results: Microbiology 02/20/23 Unknown Urine Catheterized - Straight Catheter Urine Culture - Final Jessica glabrata 02/20/23 02:07 Blood - Venous Blood Culture - Preliminary No growth after 48 hours. 02/20/23 02:07 Blood - Venous Blood Culture - Preliminary No growth after 48 hours. Progress Note: A&P Assessment and plan (1) S/P colectomy: Status: Acute (2) Volvulus of sigmoid colon: Status: Acute (3) Paranoid schizophrenia: Status: Acute (4) Cognitive impairment: Status: Acute (5) Type 2 diabetes mellitus: Status: Acute (6) CAD (coronary artery disease): Status: Acute (7) Afib: Status: Acute Plan Assessment: 62-year-old gentleman admitted with abdominal distention secondary to sigmoid volvulus, now postop day 1 after sigmoidectomy, recovering well Plan: Neuro: No acute issues. Cardiac: No acute issues. Underlying CAD and AFib. Continue beta-blockers. Pulmonary: No acute issues. Renal: No acute issues. Endo: No acute issues. GI: Sigmoid volvulus status post sigmoidectomy ond ostomy. General surgery service care appreciated. Pending return of bowel function. ID: No acute issues. 48 hours of perioperative empiric antibiotics. Heme/Onc: No acute issues. Psych: No acute issues. underlying schizophrenia, restart Clozaril as appro priate Miscellaneous: No acute issues. Prophylaxis: heparin Diet: per general surgery Quality Stroke Does the patient have a stroke diagnosis?: No VTE Prior VTE?: No VTE Risk Level:: Medical - moderate - high VTE Device Contraindication: Treatment Not Indicated VTE Drug Contraindication: N/A - Med Ordered
--- NOTE | 2023-02-24 09:10 | HO.POSTANES ---
Post Anesthesia Evaluation Post Anesthesia Evaluation Date of Service: 02/24/23 Vital Signs: Vital Signs Temp Pulse Resp BP Pulse Ox O2 Del Method 02/24/23 09:00 96 25 H 121/70 94 Room Air 02/24/23 08:00 98.5 F 93 21 H 115/64 94 Room Air 02/24/23 07:00 96 20 110/64 94 Room Air 02/24/23 06:00 103 H 23 H 111/67 96 Room Air 02/24/23 05:00 99 24 H 102/70 96 Room Air 02/24/23 04:00 99 22 H 116/68 96 Room Air 02/24/23 03:00 101 H 19 101/65 96 Room Air 02/24/23 02:00 99 18 105/63 96 Room Air 02/24/23 01:00 98.0 F 102 H 17 102/60 95 Room Air 02/24/23 00:00 97 13 97 Room Air 02/23/23 23:00 103 H 19 121/55 L 98 Room Air 02/23/23 22:00 98.0 F 105 H 14 104/57 L 95 Room Air Anesthesia: General Endotracheal-GETA Mental Status: Awake Pain Control: Satisfactory Nausea/Vomiting: None Hydration: Adequate Anesthesia-Related Issues: No Anes. Related Issues
[2023-02-24] MEDS: Heparin Sodium,Porcine 5,000 UNIT/ML VIAL 5000 UNIT SUBCUT ×2 (11:35→17:04)
[2023-02-24 12:21] LABS: Glucose, Whole Blood 176 mg/dL (60-115)
[2023-02-24] MEDS: 0.9 % Sodium Chloride Flush 3 ML SYRINGE IVFLUSH (15:46)
[2023-02-24 18:00] LABS: Glucose, Whole Blood 180 mg/dL (60-115)
[2023-02-24] MEDS: Metoprolol Tartrate 5 MG/5 ML VIAL IVPUSH (19:42)
[2023-02-24 23:48] LABS: Glucose, Whole Blood 158 mg/dL (60-115)
[2023-02-25] MEDS: 0.9 % Sodium Chloride Flush 3 ML SYRINGE IVFLUSH ×4 (00:39→19:59)
[2023-02-25] MEDS: Heparin Sodium,Porcine 5,000 UNIT/ML VIAL 5000 UNIT SUBCUT ×3 (02:27→19:37)
[2023-02-25 04:00] VITALS: BP 93/53; PULSE 113; RESP 18; TEMP 36.8; O2SAT 96
[2023-02-25] MEDS: Piperacillin Sodium/Tazobactam 3.375 GM in 0.9 % Sodium Chloride 50 ML IV ×4 (04:21→19:58)
[2023-02-25] MEDS: Dextrose 5 % 1,000 ML 150 ML IVCONT ×2 (04:22→11:05)
[2023-02-25] MEDS: Acetaminophen 1,000 MG/100 ML PIGGYBACK 400 MG IV ×4 (05:21→23:49)
[2023-02-25 05:28] LABS: Glucose, Whole Blood 167 mg/dL (60-115)
[2023-02-25 07:08] VITALS: BP 104/61; PULSE 109; RESP 16; TEMP 36.9; O2SAT 91
[2023-02-25 07:29] LABS: MANUAL DIFF FLAG NO
[2023-02-25 07:34] LABS: Basophils Percent Auto 0.3 % (0-2); Eosinophils Absolute Auto 0.1 X10*3/uL (0.0-0.4); Eosinophils Percent Auto 1.2 % (0-4); Hematocrit 30.7 % (42.0-52.0); Hemoglobin 10.1 g/dl (14.0-18.0); Imm Gran Abs Auto 0.08 X10*3/uL (0.00-0.03); Imm Gran Pct Auto 0.7 % (0.0-0.4); Lymphocytes Absolute Auto 1.6 X10*3/uL (1.2-4.9); Lymphocytes Percent Auto 13.6 % (20-40); Mean Corpuscular HGB Conc 32.9 g/dl (31.0-36.0); Mean Corpuscular Hemoglobin 27.2 pg (27.0-33.0); Mean Corpuscular Volume 82.7 fL (80.0-98.0); Mean Platelet Volume 10.4 fL (9.4-12.4); Monocytes Absolute Auto 0.8 X10*3/uL (0.1-1.2); Monocytes Percent Auto 6.9 % (2-11); Neutrophils Absolute Auto 9.1 x10*3/uL (2.0-8.3); Neutrophils Percent Auto 77.3 % (45-73); Platelet Count 159 X10*3/uL (160-400); Red Blood Count 3.71 X10*6/uL (4.60-5.80); Red Cell Distribution Width 15.5 % (11.0-16.0); White Blood Count 11.8 X10*3/uL (4.8-10.8)
[2023-02-25 07:48] LABS: Albumin Level 3.5 g/dL (3.5-5.0); Anion Gap 14 (12-20); Blood Urea Nitrogen 8 mg/dL (9-16); Carbon Dioxide 22 mmol/L (22-29); Chloride 109 mmol/L (96-108); Estimated Glomerular Filt Rate > 60; Glucose Random 171 mg/dL (60-115); Magnesium 1.6 mg/dL (1.6-2.6); Potassium 3.1 mmol/L (3.3-5.1); Sodium 142 mmol/L (135-145)
--- NOTE | 2023-02-25 08:39 | P.PNGS_ITS ---
Subjective Subjective Date of Service: 02/25/23 <Alanna Vargas PA-C - Last Filed: 02/25/23 08:43> 02/25/23 <Tim Mensah MD - Last Filed: 02/25/23 08:48> Interval history: Transferred from ICU to telemetry yesterday. No events overnight. Denies pain or nausea this morning. <Alanna Vargas PA-C - Last Filed: 02/25/23 08:43> Physical Exam Vital Signs: Vital Signs: Last Vital Signs Temp 98.5 F 02/25/23 07:08 Pulse 109 H 02/25/23 07:08 Resp 16 02/25/23 07:08 BP 104/61 02/25/23 07:08 Pulse Ox 91 L 02/25/23 07:08 O2 Del Method Room Air 02/25/23 07:08 O2 Flow Rate 2 02/23/23 15:21 Oxygen Flow Rate 2 02/23/23 05:00 BMI result Body Mass Index 24.7 <Alanna Vargas PA-C - Last Filed: 02/25/23 08:43> Const: General: comfortable, no acute distress and other (drowsy) <COLTON Puentes Last Filed: 02/25/23 08:43> Resp: Effort & Inspection: normal respiratory effort <COLTON Puentes Last Filed: 02/25/23 08:43> GI: Other: ostomy pink, no output in appliance <COLTON Puentes Last Filed: 02/25/23 08:43> Inspection: No distended and Yes incision (clean, steris intact) <COLTON Puentes Last Filed: 02/25/23 08:43> Palpation (GI): Soft to palpation, nontender, no guarding and not rigid <COLTON Puentes Last Filed: 02/25/23 08:43> Skin: General skin exam: no rashes or lesions noted <COLTON Puentes Last Filed: 02/25/23 08:43> Objective Data Active Medications Dextrose (Dextrose 50 % 25 Gm/50 Ml Syringe) 25 gm IVPUSH Q15M PRN; Protocol PRN Reason: per Hypoglycemia Standing Ord. Last Admin: 02/21/23 07:53 Dose: 25 gm Documented By: PORTIA Comments: bg 67 Glucose (Glucose Gel 15 Gm Gel..Gram.) 15 gm PO Q15M PRN; Protocol PRN Reason: per Hypoglycemia Standing Ord. Heparin Sodium (Porcine) (Heparin Sodium,Porcine 5,000 Unit/Ml Vial) 5,000 unit SUBCUT Q8H [facility] Last Admin: 02/25/23 02:27 Dose: 5,000 unit Documented By: TARA Hydromorphone HCl (Hydromorphone Hcl 0.5 Mg/0.5 Ml Syringe) 0.5 mg IVPUSH Q3H PRN; Protocol PRN Reason: Pain, Severe (Pain Scale 7-10) Piperacillin Sod/Tazobactam (Sod 3.375 gm/ Sodium Chloride) 50 mls @ 100 mls/hr IV Q6H [facility] Last Infusion: 02/25/23 05:24 Dose: 0 mls/hr Documented By: TARA Acetaminophen (Ofirmev) 1,000 mg in 100 mls @ 400 mls/hr IV Q6H [facility] Last Infusion: 02/25/23 05:43 Dose: 0 mls/hr Documented By: TARA Dextrose (D5w) 1,000 mls @ 150 mls/hr IVCONT .Q6H40M [facility] Last Admin: 02/25/23 04:22 Dose: 150 mls/hr Documented By: AYLEEN Insulin Human Lispro (Insulin Lispro 100 Unit/Ml 3 Ml Vial) 0 unit SUBCUT Q6H [facility]; Protocol Last Admin: 02/25/23 06:25 Dose: Not Given Documented By: TARA Non-Admin Reason: pt npo Metoprolol Tartrate (Metoprolol Tartrate 5 Mg/5 Ml Vial) 5 mg IVPUSH Q6H PRN PRN Reason: Heart Rate >100 Last Admin: 02/24/23 19:42 Dose: 5 mg Documented By: AYLEEN Pharmacy Consult (Consult Rx Perform Med Rec) 1 each MISCELLANE ONCE PRN PRN Reason: Consult order Sodium Chloride (0.9 % Sodium Chloride Flush 3 Ml Syringe) 3 ml IVFLUSH QSHIFT [facility] Last Admin: 02/25/23 00:39 Dose: 3 ml Documented By: TARA <Alanna Vargas PA-C - Last Filed: 02/25/23 08:43> Labs CBC & Chem 7: 02/25/23 07:15 02/25/23 07:15 <Alanna Vargas PA-C - Last Filed: 02/25/23 08:43> Labs: Laboratory Results - last 24 hr 02/24/23 02/24/23 02/24/23 12:18 17:54 23:38 MCV MCH MCHC RDW Plt Count MPV Immature Gran % (Auto) Neut % (Auto) Lymph % (Auto) [place] % (Auto) Eos % (Auto) Baso % (Auto) Lymph # (Auto) [place] # (Auto) Eos # (Auto) Baso # (Auto) Abs Immat Gran (auto) Absolute Neuts (auto) Absolute Nucleated RBC Nucleated RBC % (auto) Anion Gap Estim Creat Clear Calc Estimated GFR POC Glucose 176 H 180 H 158 H Random Glucose Calcium Phosphorus Magnesium Albumin 02/25/23 02/25/23 02/25/23 05:25 07:15 07:15 MCV 82.7 MCH 27.2 MCHC 32.9 RDW 15.5 Plt Count 159 L MPV 10.4 Immature Gran % (Auto) 0.7 H Neut % (Auto) 77.3 H Lymph % (Auto) 13.6 L [place] % (Auto) 6.9 Eos % (Auto) 1.2 Baso % (Auto) 0.3 Lymph # (Auto) 1.6 [place] # (Auto) 0.8 Eos # (Auto) 0.1 Baso # (Auto) 0.0 Abs Immat Gran (auto) 0.08 H Absolute Neuts (auto) 9.1 H Absolute Nucleated RBC 0.000 Nucleated RBC % (auto) 0.0 Anion Gap 14 Estim Creat Clear Calc 115.0 Estimated GFR > 60 POC Glucose 167 H Random Glucose 171 H Calcium 9.0 Phosphorus 2.0 L Magnesium 1.6 Albumin 3.5 <Alanna Vargas PA-C - Last Filed: 02/25/23 08:43> Microbiology Microbiology Results: Microbiology 02/20/23 02:07 Blood Culture - Final Blood - Venous No growth after 5 days. 02/20/23 02:07 Blood Culture - Final Blood - Venous No growth after 5 days. <Alanna Vargas PA-C - Last Filed: 02/25/23 08:43> Procedures Date of Service Date of Service: 02/25/23 <Alanna Vargas PA-C - Last Filed: 02/25/23 08:43> 02/25/23 <Tim Mensah MD - Last Filed: 02/25/23 08:48> Progress Note: A&P Assessment and plan (1) S/P colectomy: Status: Acute <Alanna Vargas PA-C - Last Filed: 02/25/23 08:43> Assessment and Plan: 62 year old male admitted with sigmoid volvulus now POD #2 s/p exploratory laparotomy, detorsion of sigmoid volvulus, sigmoid resection, end colostomy, Hafsa's pouch. Patient doing well from surgical standpoint. Abd benign with viable appearing colostomy, clean incision. Await output. Was awaiting swallow eval prior to surgery. Will order for today. If ok, can begin clears and advance as tolerated. <Alanna Vargas PA-C - Last Filed: 02/25/23 08:43> 62 year old male admitted with sigmoid volvulus now POD #2 s/p exploratory laparotomy, detorsion of sigmoid volvulus, sigmoid resection, end colostomy, Hafsa's pouch. Patient doing well from surgical standpoint. Abd benign with viable appearing colostomy, clean incision. Await output. Was awaiting swallow eval prior to surgery. Will order for today. If ok, can begin clears and advance as tolerated. Electrolytes much improved. Starting initial output in ostomy. Patient feels clinically much better since surgery. <Tim Mensah MD - Last Filed: 02/25/23 08:48> Time Spent With Patient Time: Total time managing care of this patient today ____ minutes. <Alanna Vargas PA-C - Last Filed: 02/25/23 08:43> Quality Stroke Does the patient have a stroke diagnosis?: No <Alanna Vargas PA-C - Last Filed: 02/25/23 08:43> VTE Prior VTE?: No <Alanna Vargas PA-C - Last Filed: 02/25/23 08:43> VTE Risk Level:: Medical - moderate - high <Alanna Vargas PA-C - Last Filed: 02/25/23 08:43> VTE Device Contraindication: Treatment Not Indicated <Alanna Vargas PA-C - Last Filed: 02/25/23 08:43> VTE Drug Contraindication: N/A - Med Ordered <Alanna Vargas PA-C - Last Filed: 02/25/23 08:43>
--- NOTE | 2023-02-25 09:23 | MHC.SLORD ---
Speech Language Pathology Order Status: Per hospitalist, pt is not yet cleared for PO by surgeon. [employer] will continue to follow.
--- NOTE | 2023-02-25 11:01 | P.PNIM_ITS ---
Subjective Subjective Date of Service: 02/25/23 Interval History: Seen and evaluated more alert and interactive reports pain under fair control colostomy still with no output waiting swallowing evaluation Review of Systems Review of Systems: Yes all other systems are reviewed and are negative Physical Exam Vital Signs: Vital Signs: Last Vital Signs Temp 98.5 F 02/25/23 07:08 Pulse 109 H 02/25/23 07:08 Resp 16 02/25/23 07:08 BP 104/61 02/25/23 07:08 Pulse Ox 91 L 02/25/23 07:08 O2 Del Method Room Air 02/25/23 07:08 O2 Flow Rate 2 02/23/23 15:21 Oxygen Flow Rate 2 02/23/23 05:00 BMI result Body Mass Index 24.7 Const: Other: Constitutional : Awake with stimulation, interactive, not in distress Neck : Normal inspection, Supple Cardiovascular : RRR, no JVP, no lower extremity edema Respiratory : good bilateral air entry, no crackles, wheezes or rhonchi Gastrointestinal: soft, lax, decreased bowel sounds, Non tender, Ostomy place clean with no drainage Skin : Warm, Dry Neurological : Alert & disoriented to place and time, No focal deficit Objective Data Active Medications Dextrose (Dextrose 50 % 25 Gm/50 Ml Syringe) 25 gm IVPUSH Q15M PRN; Protocol PRN Reason: per Hypoglycemia Standing Ord. Last Admin: 02/21/23 07:53 Dose: 25 gm Documented By: PORTIA Comments: bg 67 Glucose (Glucose Gel 15 Gm Gel..Gram.) 15 gm PO Q15M PRN; Protocol PRN Reason: per Hypoglycemia Standing Ord. Heparin Sodium (Porcine) (Heparin Sodium,Porcine 5,000 Unit/Ml Vial) 5,000 unit SUBCUT Q8H [facility] Last Admin: 02/25/23 09:25 Dose: 5,000 unit Documented By: GERTRUDIS Hydromorphone HCl (Hydromorphone Hcl 0.5 Mg/0.5 Ml Syringe) 0.5 mg IVPUSH Q3H PRN; Protocol PRN Reason: Pain, Severe (Pain Scale 7-10) Piperacillin Sod/Tazobactam (Sod 3.375 gm/ Sodium Chloride) 50 mls @ 100 mls/hr IV Q6H [facility] Last Admin: 02/25/23 09:25 Dose: 100 mls/hr Documented By: GERTRUDIS Acetaminophen (Ofirmev) 1,000 mg in 100 mls @ 400 mls/hr IV Q6H [facility] Last Admin: 02/25/23 09:22 Dose: 400 mls/hr Documented By: GERTRUDIS Dextrose (D5w) 1,000 mls @ 150 mls/hr IVCONT .Q6H40M [facility] Last Admin: 02/25/23 04:22 Dose: 150 mls/hr Documented By: AYLEEN Insulin Human Lispro (Insulin Lispro 100 Unit/Ml 3 Ml Vial) 0 unit SUBCUT Q6H [facility]; Protocol Last Admin: 02/25/23 06:25 Dose: Not Given Documented By: TARA Non-Admin Reason: pt npo Metoprolol Tartrate (Metoprolol Tartrate 5 Mg/5 Ml Vial) 5 mg IVPUSH Q6H PRN PRN Reason: Heart Rate >100 Last Admin: 02/24/23 19:42 Dose: 5 mg Documented By: AYLEEN Pharmacy Consult (Consult Rx Perform Med Rec) 1 each MISCELLANE ONCE PRN PRN Reason: Consult order Sodium Chloride (0.9 % Sodium Chloride Flush 3 Ml Syringe) 3 ml IVFLUSH QSHIFT [facility] Last Admin: 02/25/23 09:24 Dose: 3 ml Documented By: GERTRUDIS Labs 02/25/23 07:15 02/25/23 07:15 Labs: Laboratory Results - last 24 hr 02/24/23 02/24/23 02/24/23 12:18 17:54 23:38 MCV MCH MCHC RDW Plt Count MPV Immature Gran % (Auto) Neut % (Auto) Lymph % (Auto) [place] % (Auto) Eos % (Auto) Baso % (Auto) Lymph # (Auto) [place] # (Auto) Eos # (Auto) Baso # (Auto) Abs Immat Gran (auto) Absolute Neuts (auto) Absolute Nucleated RBC Nucleated RBC % (auto) Anion Gap Estim Creat Clear Calc Estimated GFR POC Glucose 176 H 180 H 158 H Random Glucose Calcium Phosphorus Magnesium Albumin 02/25/23 02/25/23 02/25/23 05:25 07:15 07:15 MCV 82.7 MCH 27.2 MCHC 32.9 RDW 15.5 Plt Count 159 L MPV 10.4 Immature Gran % (Auto) 0.7 H Neut % (Auto) 77.3 H Lymph % (Auto) 13.6 L [place] % (Auto) 6.9 Eos % (Auto) 1.2 Baso % (Auto) 0.3 Lymph # (Auto) 1.6 [place] # (Auto) 0.8 Eos # (Auto) 0.1 Baso # (Auto) 0.0 Abs Immat Gran (auto) 0.08 H Absolute Neuts (auto) 9.1 H Absolute Nucleated RBC 0.000 Nucleated RBC % (auto) 0.0 Anion Gap 14 Estim Creat Clear Calc 115.0 Estimated GFR > 60 POC Glucose 167 H Random Glucose 171 H Calcium 9.0 Phosphorus 2.0 L Magnesium 1.6 Albumin 3.5 Microbiology Microbiology Results: Microbiology 02/20/23 02:07 Blood Culture - Final Blood - Venous No growth after 5 days. 02/20/23 02:07 Blood Culture - Final Blood - Venous No growth after 5 days. Assessment and Plan (1) Atrial fibrillation with RVR: Status: Resolved (2) Volvulus of sigmoid colon: Status: Acute (3) S/P colectomy: Status: Acute (4) Cognitive impairment: Status: Acute Plan 62M PMH CAD s/p CABG, paroxysmal afib, COPD, DM2, paranoid schizophrenia, hypothyroid, [facility] presented with abdominal pain, distension, hypoxia acute sigmoid volvulus POD #4 post s/p exploratory laparotomy, detorsion of sigmoid volvulus, sigmoid resection, end colostomy, Hafsa's pouch. 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 following severe sepsis and acute hypoxic respiratory failure and acute metabolic e ncephalopathy due to aspiration pneumonia continue iv zosyn, change to po once able to tolerate weaned o2 to RA hypernatremia resolved continue D5 until he can eat Hypokalemia K 3.1, give replacement and follow BMP paroxysmal afib with rvr still running fast 100-110s IV Metoprolol for now continue therapeutic lovenox DM insulin CAD asa, statin hypothryoid synthroid paranoid schizophrenia clozaril dvt prophylaxis Lovenox full code reason for continued hospitalization: awaiting return of gi function and tolerance to diet Time Spent With Patient Time: Total time managing care of this patient today ____ minutes. Quality Stroke Does the patient have a stroke diagnosis?: No VTE Prior VTE?: No VTE Risk Level:: Medical - moderate - high VTE Device Contraindication: Treatment Not Indicated VTE Drug Contraindication: N/A - Med Ordered
[2023-02-25 11:06] VITALS: BP 100/64; PULSE 105; RESP 16; TEMP 36.9; O2SAT 92
[2023-02-25 11:14] LABS: Glucose, Whole Blood 159 mg/dL (60-115)
--- NOTE | 2023-02-25 12:05 | MHC.CM.PN ---
EMR reviewed and per MD rounds, pt is not medically cleared for D/C due to awaiting return of GI function and tolerance to diet. CM will continue to follow.
[2023-02-25] MEDS: Potassium Chloride/H20 10 MEQ/100 ML PIGGYBACK 100 MEQ IV (13:27)
[2023-02-25] MEDS: Metoprolol Tartrate 5 MG/5 ML VIAL IVPUSH ×3 (13:36→23:50)
--- NOTE | 2023-02-25 13:50 | MHC.SL.SWA ---
Speech Pathologist Impression: Oropharyngeal Dysphagia Risk of Aspiration Due to: Lethargy Neurological Condition Dysphasia Diet Status: UPGRADE to clear liquids (per MD/surgeon) Liquid Consistency and Strategies for Safe Swallow: Liquid Intake Recommendation: Thin Liquid Intake Strategies: Unrestricted Solid Food Consistency: Dietary Recommendations: Pureed (NDD1) Oral Medication Intake: Crushed with Puree Please contact the pharmacy regarding appropriate crushable or liquid drug formulations that are available whenever modified delivery is recommended. Compensatory Strategies and Precautions to be Taken for Safe Swallow: Sitting Upright (90 deg) Small Bites and Sips Alternate Liquids/Solids Rate of Ingestion Change Supervision While Eating and Drinking for Safe Swallow: Total Supervision (1:1) Swallowing Recommended Treatments: Compens. Strategy Educat. Recommendation for Speech: Inpatient Speech Therapy Comment: Recommend PUREE solids (NDD1) and THIN liquids when cleared by MD/surgeon s/p surgery. Per MD, pt is cleared for clear liquid diet at this time. Recommend full 1-1 supervision d/t observed impulsiveness when feeding and [facility] reports that pt requires cues to slow rate of ingestion. Monitor for s/s of aspiration (i.e. coughing, throat clearing, red in face). MD, RN, RD notified via GPal. Recommendations written on pt's board. [facility] baseline is regular solids cut into bite sized pieces w/ thin liquids, meds crushed, and reminders to slow rate of ingestion. Internal Carver Clinican/Clinical Fellow: No Supervisory Statement: I have reviewed and agree with the student/clinical fellow's documentation: No Speech Language Pathologist: Irina Mclaughlin M.A., CCC-CAMP COORDINATOR
[2023-02-25 14:48] VITALS: BP 106/58; PULSE 88; RESP 20; TEMP 36.3; O2SAT 95
[2023-02-25 18:16] LABS: Glucose, Whole Blood 238 mg/dL (60-115)
[2023-02-25 18:56] VITALS: BP 103/52; PULSE 93; RESP 20; TEMP 36.7; O2SAT 92
[2023-02-25] MEDS: Dextrose 5 % 1,000 ML 100 ML IVCONT (19:59)
[2023-02-25 23:43] VITALS: BP 114/66; PULSE 90; RESP 18; TEMP 37.1; O2SAT 93
[2023-02-26] VITALS (7 sets, daily range): BP systolic 87–142; BP diastolic 56–76; PULSE 70–124; RESP 14–18; TEMP 36.1–36.8; O2SAT 92–95
[2023-02-26 00:01] LABS: Glucose, Whole Blood 151 mg/dL (60-115)
[2023-02-26] MEDS: Heparin Sodium,Porcine 5,000 UNIT/ML VIAL 5000 UNIT SUBCUT ×2 (00:56→16:40)
[2023-02-26] MEDS: Piperacillin Sodium/Tazobactam 3.375 GM in 0.9 % Sodium Chloride 50 ML IV ×4 (04:02→22:31)
[2023-02-26] MEDS: Acetaminophen 1,000 MG/100 ML PIGGYBACK 400 MG IV ×2 (04:26→16:42)
[2023-02-26] MEDS: Metoprolol Tartrate 5 MG/5 ML VIAL IVPUSH ×4 (04:26→22:31)
[2023-02-26] MEDS: Dextrose 5 % 1,000 ML 100 ML IVCONT ×2 (06:04→16:04)
[2023-02-26 06:05] LABS: Glucose, Whole Blood 173 mg/dL (60-115)
[2023-02-26] MEDS: Insulin Lispro 100 UNIT/ML 3 ML VIAL SUBCUT ×3 (06:05→17:14)
[2023-02-26 06:39] LABS: Hematocrit 35.3 % (42.0-52.0); Hemoglobin 11.7 g/dl (14.0-18.0); Mean Corpuscular HGB Conc 33.1 g/dl (31.0-36.0); Mean Corpuscular Hemoglobin 27.3 pg (27.0-33.0); Mean Corpuscular Volume 82.5 fL (80.0-98.0); Mean Platelet Volume 10.6 fL (9.4-12.4); Platelet Count 199 X10*3/uL (160-400); Red Blood Count 4.28 X10*6/uL (4.60-5.80); Red Cell Distribution Width 15.3 % (11.0-16.0); White Blood Count 11.1 X10*3/uL (4.8-10.8)
[2023-02-26 06:58] LABS: Anion Gap 13 (12-20); Blood Urea Nitrogen 8 mg/dL (9-16); Calcium 9.4 mg/dL (8.4-10.2); Carbon Dioxide 22 mmol/L (22-29); Chloride 112 mmol/L (96-108); Creatinine Clr Calc Pharmacy 107.3; Estimated Glomerular Filt Rate > 60; Glucose Random 168 mg/dL (60-115); Potassium 3.3 mmol/L (3.3-5.1); Sodium 144 mmol/L (135-145)
--- NOTE | 2023-02-26 08:38 | P.PNGS_ITS ---
Subjective Subjective Date of Service: 02/26/23 Interval history: Denies pain, nausea. Physical Exam Vital Signs: Vital Signs: Last Vital Signs Temp 97.3 F 02/26/23 07:12 Pulse 100 02/26/23 07:12 Resp 18 02/26/23 07:12 BP 116/68 02/26/23 07:12 Pulse Ox 92 02/26/23 07:12 O2 Del Method Room Air 02/26/23 07:12 O2 Flow Rate 2 02/23/23 15:21 Oxygen Flow Rate 2 02/23/23 05:00 BMI result Body Mass Index 24.7 Const: General: comfortable, no acute distress and alert Resp: Effort & Inspection: normal respiratory effort GI: Other: ostomy pink, no stool output Inspection: No distended and Yes incision (clean) Palpation (GI): Soft to palpation, nontender, no guarding and not rigid Skin: General skin exam: no rashes or lesions noted and no jaundice Neuro: General: moves all extremities Objective Data Active Medications Dextrose (Dextrose 50 % 25 Gm/50 Ml Syringe) 25 gm IVPUSH Q15M PRN; Protocol PRN Reason: per Hypoglycemia Standing Ord. Last Admin: 02/21/23 07:53 Dose: 25 gm Documented By: PORTIA Comments: bg 67 Glucose (Glucose Gel 15 Gm Gel..Gram.) 15 gm PO Q15M PRN; Protocol PRN Reason: per Hypoglycemia Standing Ord. Heparin Sodium (Porcine) (Heparin Sodium,Porcine 5,000 Unit/Ml Vial) 5,000 unit SUBCUT Q8H [facility] Last Admin: 02/26/23 00:56 Dose: 5,000 unit Documented By: VANESSA Hydromorphone HCl (Hydromorphone Hcl 0.5 Mg/0.5 Ml Syringe) 0.5 mg IVPUSH Q3H PRN; Protocol PRN Reason: Pain, Severe (Pain Scale 7-10) Piperacillin Sod/Tazobactam (Sod 3.375 gm/ Sodium Chloride) 50 mls @ 100 mls/hr IV Q6H [facility] Last Infusion: 02/26/23 04:32 Dose: 0 mls/hr Documented By: VANESSA Acetaminophen (Ofirmev) 1,000 mg in 100 mls @ 400 mls/hr IV Q6H [facility] Last Infusion: 02/26/23 04:42 Dose: 0 mls/hr Documented By: VANESSA Dextrose (D5w) 1,000 mls @ 100 mls/hr IVCONT .Q10H [facility] Last Admin: 02/26/23 06:04 Dose: 100 mls/hr Documented By: VANESSA Insulin Human Lispro (Insulin Lispro 100 Unit/Ml 3 Ml Vial) 0 unit SUBCUT Q6H [facility]; Protocol Last Admin: 02/26/23 06:05 Dose: 2 unit Documented By: VANESSA Metoprolol Tartrate (Metoprolol Tartrate 5 Mg/5 Ml Vial) 5 mg IVPUSH Q6H [facility]; Protocol Last Admin: 02/26/23 04:26 Dose: 5 mg Documented By: VANESSA Pharmacy Consult (Consult Rx Perform Med Rec) 1 each MISCELLANE ONCE PRN PRN Reason: Consult order Sodium Chloride (0.9 % Sodium Chloride Flush 3 Ml Syringe) 3 ml IVFLUSH QSHIFT [facility] Last Admin: 02/25/23 19:59 Dose: 3 ml Documented By: VANESSA Labs 02/26/23 06:20 02/26/23 06:20 Labs: Laboratory Results - last 24 hr 02/25/23 02/25/23 02/25/23 11:08 18:13 23:44 MCV MCH MCHC RDW Plt Count MPV Absolute Nucleated RBC Nucleated RBC % (auto) Anion Gap Estim Creat Clear Calc Estimated GFR POC Glucose 159 H 238 H 151 H Random Glucose Calcium 02/26/23 02/26/23 02/26/23 05:59 06:20 06:20 MCV 82.5 MCH 27.3 MCHC 33.1 RDW 15.3 Plt Count 199 D MPV 10.6 Absolute Nucleated RBC 0.000 Nucleated RBC % (auto) 0.0 Anion Gap 13 Estim Creat Clear Calc 107.3 Estimated GFR > 60 POC Glucose 173 H Random Glucose 168 H Calcium 9.4 Procedures Date of Service Date of Service: 02/26/23 Progress Note: A&P Assessment and plan (1) S/P colectomy: Status: Acute (2) Volvulus of sigmoid colon: Status: Acute Plan 62 year old male admitted with sigmoid volvulus now POD #3 s/p exploratory laparotomy, detorsion of sigmoid volvulus, sigmoid resection, end colostomy, Hafsa's pouch. Patient continues to do well from surgical standpoint. Diet as tolerated. Abd benign with viable appearing colostomy, clean incision. Await stool output. Unclear baseline function but if he is able to ambulate this should be encouraged to promote GI function. Time Spent With Patient Time: Total time managing care of this patient today ____ minutes. Quality Stroke Does the patient have a stroke diagnosis?: No VTE Prior VTE?: No VTE Risk Level:: Medical - moderate - high VTE Device Contraindication: Treatment Not Indicated VTE Drug Contraindication: N/A - Med Ordered
--- NOTE | 2023-02-26 10:29 | HO.PM.IMPN ---
Subjective Subjective Date of Service: 02/26/23 Interval History: Seen and evaluated alert and interactive but overall confused pulled out the bag of his colostomy pain under fair control tolerating clears Review of Systems Review of Systems: Yes all other systems are reviewed and are negative Physical Exam Vital Signs: Vital Signs: Last Vital Signs Temp 97.3 F 02/26/23 07:12 Pulse 100 02/26/23 07:12 Resp 18 02/26/23 07:12 BP 116/68 02/26/23 07:12 Pulse Ox 92 02/26/23 07:12 O2 Del Method Room Air 02/26/23 07:12 O2 Flow Rate 2 02/23/23 15:21 Oxygen Flow Rate 2 02/23/23 05:00 BMI result Body Mass Index 24.7 Const: Other: Constitutional : Awake with stimulation, interactive, not in distress Neck : Normal inspection, Supple Cardiovascular : RRR, no JVP, no lower extremity edema Respiratory : good bilateral air entry, no crackles, wheezes or rhonchi Gastrointestinal: soft, lax, decreased bowel sounds, Non tender, Ostomy place clean with no drainage Skin : Warm, Dry Neurological : Alert & disoriented to place and time, No focal deficit Objective Data Active Medications Dextrose (Dextrose 50 % 25 Gm/50 Ml Syringe) 25 gm IVPUSH Q15M PRN; Protocol PRN Reason: per Hypoglycemia Standing Ord. Last Admin: 02/21/23 07:53 Dose: 25 gm Documented By: PORTIA Comments: bg 67 Glucose (Glucose Gel 15 Gm Gel..Gram.) 15 gm PO Q15M PRN; Protocol PRN Reason: per Hypoglycemia Standing Ord. Heparin Sodium (Porcine) (Heparin Sodium,Porcine 5,000 Unit/Ml Vial) 5,000 unit SUBCUT Q8H [facility] Last Admin: 02/26/23 00:56 Dose: 5,000 unit Documented By: VANESSA Hydromorphone HCl (Hydromorphone Hcl 0.5 Mg/0.5 Ml Syringe) 0.5 mg IVPUSH Q3H PRN; Protocol PRN Reason: Pain, Severe (Pain Scale 7-10) Piperacillin Sod/Tazobactam (Sod 3.375 gm/ Sodium Chloride) 50 mls @ 100 mls/hr IV Q6H [facility] Last Infusion: 02/26/23 04:32 Dose: 0 mls/hr Documented By: VANESSA Acetaminophen (Ofirmev) 1,000 mg in 100 mls @ 400 mls/hr IV Q6H [facility] Last Infusion: 02/26/23 04:42 Dose: 0 mls/hr Documented By: VANESSA Dextrose (D5w) 1,000 mls @ 100 mls/hr IVCONT .Q10H [facility] Last Admin: 02/26/23 06:04 Dose: 100 mls/hr Documented By: VANESSA Insulin Human Lispro (Insulin Lispro 100 Unit/Ml 3 Ml Vial) 0 unit SUBCUT Q6H [facility]; Protocol Last Admin: 02/26/23 06:05 Dose: 2 unit Documented By: VANESSA Metoprolol Tartrate (Metoprolol Tartrate 5 Mg/5 Ml Vial) 5 mg IVPUSH Q6H [facility]; Protocol Last Admin: 02/26/23 04:26 Dose: 5 mg Documented By: VANESSA Pharmacy Consult (Consult Rx Perform Med Rec) 1 each MISCELLANE ONCE PRN PRN Reason: Consult order Sodium Chloride (0.9 % Sodium Chloride Flush 3 Ml Syringe) 3 ml IVFLUSH QSHIFT [facility] Last Admin: 02/25/23 19:59 Dose: 3 ml Documented By: VANESSA Labs 02/26/23 06:20 02/26/23 06:20 Labs: Laboratory Results - last 24 hr 02/25/23 02/25/23 02/25/23 11:08 18:13 23:44 MCV MCH MCHC RDW Plt Count MPV Absolute Nucleated RBC Nucleated RBC % (auto) Anion Gap Estim Creat Clear Calc Estimated GFR POC Glucose 159 H 238 H 151 H Random Glucose Calcium 02/26/23 02/26/23 02/26/23 05:59 06:20 06:20 MCV 82.5 MCH 27.3 MCHC 33.1 RDW 15.3 Plt Count 199 D MPV 10.6 Absolute Nucleated RBC 0.000 Nucleated RBC % (auto) 0.0 Anion Gap 13 Estim Creat Clear Calc 107.3 Estimated GFR > 60 POC Glucose 173 H Random Glucose 168 H Calcium 9.4 Assessment and Plan (1) Acute hypokalemia: Status: Acute (2) Volvulus of sigmoid colon: Status: Acute (3) S/P colectomy: Status: Acute (4) Acute hypernatremia: Status: Acute Plan 62M PMH CAD s/p CABG, paroxysmal afib, COPD, DM2, paranoid schizophrenia, hypothyroid, [facility] presented with abdominal pain, distension, hypoxia acute sigmoid volvulus POD #4 post s/p exploratory laparotomy, detorsion of sigmoid volvulus, sigmoid resection, end colostomy, Hafsa's pouch. 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 surgery following severe sepsis and acute hypoxic respiratory failure and acute metabolic encephalopathy due to aspiration pneumonia continue iv zosyn, change to po once able to tolerate weaned o2 to RA hypernatremia resolved continue D5 until he can eat Hypokalemia K 3.1, give replacement and follow BMP paroxysmal afib with rvr still running fast 100-110s IV Metoprolol for now continue therapeutic lovenox DM insulin CAD asa, statin hypothryoid synthroid paranoid schizophrenia clozaril dvt prophylaxis Lovenox full code reason for continued hospitalization: awaiting return of gi function and tolerance to diet Time Spent With Patient Time: Total time managing care of this patient today ____ minutes. Quality Stroke Does the patient have a stroke diagnosis?: No VTE Prior VTE?: No VTE Risk Level:: Medical - moderate - high VTE Device Contraindication: Treatment Not Indicated VTE Drug Contraindication: N/A - Med Ordered
--- NOTE | 2023-02-26 10:58 | PC.NURSE ---
pt removed his own colostomy bag. Blood noted on sheets and surrounding tissue, oozing from stoma. Stoma very edematous and red. Surgical PA and HCP notified and called to bedside. New colostomy appliance placed. Pt now has 1:1 sitter. WIll continue to monitor
[2023-02-26 11:36] LABS: Glucose, Whole Blood 176 mg/dL (60-115)
[2023-02-26] MEDS: 0.9 % Sodium Chloride Flush 3 ML SYRINGE IVFLUSH ×2 (11:37→16:07)
--- NOTE | 2023-02-26 13:14 | MHC.SL.SWA ---
Speech Pathologist Impression: Risk of Aspiration Due to: Lethargy Neurological Condition Dysphasia Diet Status: Recommend DOWNGRADE liquids to NECTAR THICK, if allowed by Clear Liquid diet. Recommend 1-1 feeding with liquids by tsp only. If/when cleared by GI for diet advancement, recommend Puree (NDD1) with [place] Thick liquids, pills crushed in puree. Liquid Consistency and Strategies for Safe Swallow: Liquid Intake Recommendation: [place] Thick Liquid Intake Strategies: Liquids by Teaspoon Only Solid Food Consistency: Dietary Recommendations: Pureed (NDD1) Additional Modifications to Solid Foods: Oral Medication Intake: Crushed with Puree Please contact the pharmacy regarding appropriate crushable or liquid drug formulations that are available whenever modified delivery is recommended. Compensatory Strategies and Precautions to be Taken for Safe Swallow: Sitting Upright (90 deg) No Straw Liquids from Spoon Small Bites and Sips Rate of Ingestion Change Supervision While Eating and Drinking for Safe Swallow: Total Assistance (1:1) Foods to Avoid: Avoid hard and tough to chew foods Swallowing Recommended Treatments: Compens. Strategy Educat. Recommendation for Speech: Inpatient Speech Therapy Comment: Patient was seen during lunch. Patient currently on clear liquid diet with thin liquids, which NIGHT ASSISTANT had indicated was appropriate in assessment yesterday. Patient was sitting up in bed with lunch tray in front of him and sitter present in room. At onset, patient had just finished chugging soup from bowl, which was followed by a repeated coughing after swallow. Patient noted to have some upper airway noise, and noted to be coughing on and off throughout meal, but often after swallowing liquids on tray. Patient given broth transferred to cup as a trial for some independent controlled sips. Patient took two quick sips from cup, then again coughed after swallow. Patient given nectar thick juice also initially from controlled cup sip, again noted to cough after swallow. When given nectar thick juice by tsp, patient noted to produce swallow with mildly reduced laryngeal elevation, no coughing or upper airway noise on single and repeat presentations. Patient given jello by spoon, with timely oral phase, timely swallow but reduced laryngeal elevation palpated. Patient did not evidence coughing on this consistency, and consumed entire cup with 1-1 assistance. On [place] ice, when given spoonful, patient again evidenced when cough after swallow (with consistency likely to have dissolved). Per RN coughing on liquids has been chronically observed. Recommend DOWNGRADE liquids to NECTAR THICK, if allowed by Clear Liquid diet. Recommend 1-1 feeding with liquids by tsp only. If/when cleared by GI for diet advancement, recommend Puree (NDD1) with [place] Thick liquids, pills crushed in puree. Communicated recommendation by secure text with MD, discussed in person with RN, white board in patient's room adjusted to reflect recommendations. [facility] baseline is regular solids cut into bite sized pieces w/ thin liquids, meds crushed, and reminders to slow rate of ingestion. Frequency/Duration: Date Range for Service Req: Timeline to reassess: Commercial Artist Clinican/Clinical Fellow: No Supervisory Statement: I have reviewed and agree with the student/clinical fellow's documentation: N/A Speech Language Pathologist: Kierra Johnson M.A., CCC-NIGHT ASSISTANT
[2023-02-26 15:55] LABS: Glucose, Whole Blood 272 mg/dL (60-115)
[2023-02-26 17:47] LABS: Glucose, Whole Blood 297 mg/dL (60-115)
[2023-02-27] VITALS (8 sets, daily range): BP systolic 91–119; BP diastolic 56–76; PULSE 87–137; RESP 14–20; TEMP 36.1–36.9; O2SAT 93–96
[2023-02-27 00:37] LABS: Glucose, Whole Blood 179 mg/dL (60-115)
[2023-02-27] MEDS: Heparin Sodium,Porcine 5,000 UNIT/ML VIAL 5000 UNIT SUBCUT ×2 (01:43→09:21)
[2023-02-27] MEDS: Piperacillin Sodium/Tazobactam 3.375 GM in 0.9 % Sodium Chloride 50 ML IV ×4 (04:19→21:55)
[2023-02-27] MEDS: Dextrose 5 % 1,000 ML 100 ML IVCONT (04:19)
[2023-02-27] MEDS: Metoprolol Tartrate 5 MG/5 ML VIAL IVPUSH ×2 (05:11→12:00)
[2023-02-27] MEDS: Insulin Lispro 100 UNIT/ML 3 ML VIAL SUBCUT ×3 (06:34→18:06)
[2023-02-27 06:37] LABS: Glucose, Whole Blood 227 mg/dL (60-115)
--- NOTE | 2023-02-27 08:31 | P.PNGS_ITS ---
Subjective Subjective Date of Service: 02/27/23 Interval history: Denies pain. Tolerating diet without nausea. Has not been OOB. States he sometimes walks at his facility. Physical Exam Vital Signs: Vital Signs: Last Vital Signs Temp 97.2 F 02/27/23 07:09 Pulse 101 H 02/27/23 08:15 Resp 18 02/27/23 07:09 BP 114/66 02/27/23 08:15 Pulse Ox 94 02/27/23 08:15 O2 Del Method Room Air 02/27/23 07:09 O2 Flow Rate 2 02/23/23 15:21 Oxygen Flow Rate 2 02/23/23 05:00 BMI result Body Mass Index 24.7 Const: General: comfortable, no acute distress and alert Resp: Effort & Inspection: normal respiratory effort GI: Other: ostomy remains edematous but pink, no flatus or stool output Inspection: Yes distended and Yes incision (clean) Palpation (GI): Soft to palpation, nontender, no guarding and not rigid Skin: General skin exam: no rashes or lesions noted Neuro: General: moves all extremities Objective Data Active Medications Dextrose (Dextrose 50 % 25 Gm/50 Ml Syringe) 25 gm IVPUSH Q15M PRN; Protocol PRN Reason: per Hypoglycemia Standing Ord. Last Admin: 02/21/23 07:53 Dose: 25 gm Documented By: PORTIA Comments: bg 67 Glucose (Glucose Gel 15 Gm Gel..Gram.) 15 gm PO Q15M PRN; Protocol PRN Reason: per Hypoglycemia Standing Ord. Heparin Sodium (Porcine) (Heparin Sodium,Porcine 5,000 Unit/Ml Vial) 5,000 unit SUBCUT Q8H [facility] Last Admin: 02/27/23 01:43 Dose: 5,000 unit Documented By: FITO Hydromorphone HCl (Hydromorphone Hcl 0.5 Mg/0.5 Ml Syringe) 0.5 mg IVPUSH Q3H PRN; Protocol PRN Reason: Pain, Severe (Pain Scale 7-10) Piperacillin Sod/Tazobactam (Sod 3.375 gm/ Sodium Chloride) 50 mls @ 100 mls/hr IV Q6H [facility] Last Infusion: 02/27/23 04:49 Dose: 0 mls/hr Documented By: FITO Dextrose (D5w) 1,000 mls @ 100 mls/hr IVCONT .Q10H [facility] Last Admin: 02/27/23 04:19 Dose: 100 mls/hr Documented By: FITO Insulin Human Lispro (Insulin Lispro 100 Unit/Ml 3 Ml Vial) 0 unit SUBCUT Q6H [facility]; Protocol Last Admin: 02/27/23 06:34 Dose: 4 unit Documented By: FITO Metoprolol Tartrate (Metoprolol Tartrate 5 Mg/5 Ml Vial) 5 mg IVPUSH Q6H [facility]; Protocol Last Admin: 02/27/23 05:11 Dose: 5 mg Documented By: FITO Pharmacy Consult (Consult Rx Perform Med Rec) 1 each MISCELLANE ONCE PRN PRN Reason: Consult order Sodium Chloride (0.9 % Sodium Chloride Flush 3 Ml Syringe) 3 ml IVFLUSH QSHIFT [facility] Last Admin: 02/26/23 23:35 Dose: Not Given Documented By: FITO Non-Admin Reason: IV Running Labs 02/26/23 06:20 02/26/23 06:20 Labs: Laboratory Results - last 24 hr 02/26/23 02/26/23 02/26/23 11:29 15:47 17:38 POC Glucose 176 H 272 H 297 H 02/27/23 02/27/23 00:27 06:28 POC Glucose 179 H 227 H Procedures Date of Service Date of Service: 02/27/23 Progress Note: A&P Assessment and plan (1) S/P colectomy: Status: Acute (2) Volvulus of sigmoid colon: Status: Acute Plan 62 year old male admitted with sigmoid volvulus now POD #4 s/p exploratory laparotomy, detorsion of sigmoid volvulus, sigmoid resection, end colostomy, Hafsa's pouch. Patient continues to do well from surgical standpoint. Diet as tolerated. Abd benign with viable appearing colostomy, clean incision. Await ostomy function. Discussed with RN getting patient OOB/ambulating to promote GI function. Time Spent With Patient Time: Total time managing care of this patient today ____ minutes. Quality Stroke Does the patient have a stroke diagnosis?: No VTE Prior VTE?: No VTE Risk Level:: Medical - moderate - high VTE Device Contraindication: Treatment Not Indicated VTE Drug Contraindication: N/A - Med Ordered
[2023-02-27] MEDS: 0.9 % Sodium Chloride Flush 3 ML SYRINGE IVFLUSH ×2 (09:22→12:07)
--- NOTE | 2023-02-27 09:24 | PC.NURSE ---
removed quinn cath at 09:12. pt tolerated procedure well. An external cath was placed on patient as he is typiically incontinent. Pt due to void by 15:12
[2023-02-27 11:09] LABS: Glucose, Whole Blood 178 mg/dL (60-115)
--- NOTE | 2023-02-27 11:58 | HO.PM.IMPN ---
Subjective Subjective Date of Service: 02/27/23 Interval History: Seen and evaluated alert and interactive but overall confused await colostomy function pain under fair control tolerating clears Review of Systems Review of Systems: Yes all other systems are reviewed and are negative Physical Exam Vital Signs: Vital Signs: Last Vital Signs Temp 97.0 F 02/27/23 11:16 Pulse 137 H 02/27/23 11:16 Resp 20 02/27/23 11:16 BP 97/69 02/27/23 11:16 Pulse Ox 94 02/27/23 11:16 O2 Del Method Room Air 02/27/23 11:16 O2 Flow Rate 2 02/23/23 15:21 Oxygen Flow Rate 2 02/23/23 05:00 BMI result Body Mass Index 24.7 Const: Other: Constitutional : Awake with stimulation, interactive, not in distress Neck : Normal inspection, Supple Cardiovascular : RRR, no JVP, no lower extremity edema Respiratory : good bilateral air entry, no crackles, wheezes or rhonchi Gastrointestinal: soft, lax, decreased bowel sounds, Non tender, Ostomy place clean with no drainage Skin : Warm, Dry Neurological : Alert & disoriented to place and time, No focal deficit Objective Data Active Medications Dextrose (Dextrose 50 % 25 Gm/50 Ml Syringe) 25 gm IVPUSH Q15M PRN; Protocol PRN Reason: per Hypoglycemia Standing Ord. Last Admin: 02/21/23 07:53 Dose: 25 gm Documented By: PORTIA Comments: bg 67 Glucose (Glucose Gel 15 Gm Gel..Gram.) 15 gm PO Q15M PRN; Protocol PRN Reason: per Hypoglycemia Standing Ord. Heparin Sodium (Porcine) (Heparin Sodium,Porcine 5,000 Unit/Ml Vial) 5,000 unit SUBCUT Q8H [facility] Last Admin: 02/27/23 09:21 Dose: 5,000 unit Documented By: MATHEUS Hydromorphone HCl (Hydromorphone Hcl 0.5 Mg/0.5 Ml Syringe) 0.5 mg IVPUSH Q3H PRN; Protocol PRN Reason: Pain, Severe (Pain Scale 7-10) Piperacillin Sod/Tazobactam (Sod 3.375 gm/ Sodium Chloride) 50 mls @ 100 mls/hr IV Q6H [facility] Last Infusion: 02/27/23 10:25 Dose: 0 mls/hr Documented By: EVANGELIST Dextrose (D5w) 1,000 mls @ 100 mls/hr IVCONT .Q10H [facility] Last Admin: 02/27/23 04:19 Dose: 100 mls/hr Documented By: FITO Insulin Human Lispro (Insulin Lispro 100 Unit/Ml 3 Ml Vial) 0 unit SUBCUT Q6H [facility]; Protocol Last Admin: 02/27/23 06:34 Dose: 4 unit Documented By: FITO Metoprolol Tartrate (Metoprolol Tartrate 5 Mg/5 Ml Vial) 5 mg IVPUSH Q6H [facility]; Protocol Last Admin: 02/27/23 05:11 Dose: 5 mg Documented By: FITO Pharmacy Consult (Consult Rx Perform Med Rec) 1 each MISCELLANE ONCE PRN PRN Reason: Consult order Sodium Chloride (0.9 % Sodium Chloride Flush 3 Ml Syringe) 3 ml IVFLUSH QSHIFT [facility] Last Admin: 02/27/23 09:22 Dose: 3 ml Documented By: MATHEUS Labs 02/26/23 06:20 02/26/23 06:20 Labs: Laboratory Results - last 24 hr 02/26/23 02/26/23 02/27/23 15:47 17:38 00:27 POC Glucose 272 H 297 H 179 H 02/27/23 02/27/23 06:28 11:06 POC Glucose 227 H 178 H Assessment and Plan (1) Acute hypernatremia: Status: Acute (2) Acute hypokalemia: Status: Acute (3) Cognitive impairment: Status: Acute (4) Volvulus of sigmoid colon: Status: Acute Plan 62M PMH CAD s/p CABG, paroxysmal afib, COPD, DM2, paranoid schizophrenia, hypothyroid, [facility] presented with abdominal pain, distension, hypoxia acute sigmoid volvulus POD #4 post s/p exploratory laparotomy, detorsion of sigmoid volvulus, sigmoid resection, end colostomy, Hafsa's pouch. METROLOGY SPECIALIST eval, NDD1 w nectar thick liquids surgery following severe sepsis and acute hypoxic respiratory failure and acute metabolic encephalopathy due to aspiration pneumonia continue iv zosyn, change to po once able to tolerate weaned o2 to RA hypernatremia resolved continue D5 until he can eat Hypokalemia Resolved, give replacement and follow BMP paroxysmal afib with rvr Start PO Metoprolol IV Metoprolol for now restart Eliquis DM insulin CAD asa, statin hypothryoid synthroid paranoid schizophrenia clozaril dvt prophylaxis Eliquis full code reason for continued hospitalization: awaiting return of gi function and tolerance to diet Time Spent With Patient Time: Total time managing care of this patient today ____ minutes. Quality Stroke Does the patient have a stroke diagnosis?: No VTE Prior VTE?: No VTE Risk Level:: Medical - moderate - high VTE Device Contraindication: Treatment Not Indicated VTE Drug Contraindication: N/A - Med Ordered
--- NOTE | 2023-02-27 12:06 | MHC.CM.PN ---
EMR reviewed and per MD round,s pt is not medically cleared for D/C today due to pts diet advancing, awaiting return of GI function, and tolerance to diet. CM will continue to follow.
[2023-02-27] MEDS: Apixaban 5 MG TABLET PO ×2 (13:06→21:54)
[2023-02-27] MEDS: Levothyroxine Sodium 75 MCG TABLET PO (13:06)
--- NOTE | 2023-02-27 13:33 | MHC.SL.SWA ---
Speech Pathologist Impression: Risk of aspiration, oropharyngeal dysphagia Risk of Aspiration Due to: Lethargy Neurological Condition Dysphasia Diet Status: Recommend NECTAR THICK liquids, if allowed by Clear Liquid diet. Recommend 1-1 feeding with liquids by tsp only. If/when cleared by GI for diet advancement, recommend Puree (NDD1) with [place] Thick liquids, pills crushed in puree. Liquid Consistency and Strategies for Safe Swallow: Liquid Intake Recommendation: [place] Thick Liquid Intake Strategies: Liquids by Teaspoon Only Solid Food Consistency: Dietary Recommendations: Pureed (NDD1) Additional Modifications to Solid Foods: Pt coughing on thin liquid Oral Medication Intake: Crushed with Puree Please contact the pharmacy regarding appropriate crushable or liquid drug formulations that are available whenever modified delivery is recommended. Compensatory Strategies and Precautions to be Taken for Safe Swallow: Sitting Upright (90 deg) No Straw Liquids from Spoon Small Bites and Sips Rate of Ingestion Change Supervision While Eating and Drinking for Safe Swallow: Total Assistance (1:1) Foods to Avoid: Avoid hard and tough to chew foods Swallowing Recommended Treatments: Compens. Strategy Educat. Recommendation for Speech: Inpatient Speech Therapy [facility] baseline is regular solids cut into bite sized pieces w/ thin liquids, meds crushed, and reminders to slow rate of ingestion. Diesel Locomotive Crane Operator Clinican/Clinical Fellow: No Supervisory Statement: I have reviewed and agree with the student/clinical fellow's documentation: N/A Speech Language Pathologist: Jesika Diaz M.A., CCC-PHERESIS SPECIALIST
[2023-02-27 16:52] LABS: Glucose, Whole Blood 321 mg/dL (60-115)
[2023-02-27] MEDS: Metoprolol Tartrate 12.5 MG HALFTAB PO (21:54)
[2023-02-27] MEDS: cloZAPine 25 MG TABLET 12.5 MG PO (21:54)
[2023-02-28] VITALS (9 sets, daily range): BP systolic 90–110; BP diastolic 54–66; PULSE 84–145; RESP 18–22; TEMP 36.1–36.8; O2SAT 92–96
[2023-02-28] MEDS: 0.9 % Sodium Chloride Flush 3 ML SYRINGE IVFLUSH ×3 (00:22→22:50)
[2023-02-28 00:37] LABS: Glucose, Whole Blood 178 mg/dL (60-115)
[2023-02-28] MEDS: Piperacillin Sodium/Tazobactam 3.375 GM in 0.9 % Sodium Chloride 50 ML IV ×4 (03:03→22:50)
[2023-02-28 06:10] LABS: Glucose, Whole Blood 155 mg/dL (60-115)
[2023-02-28] MEDS: Levothyroxine Sodium 75 MCG TABLET PO (06:15)
[2023-02-28 07:31] LABS: Anion Gap 14 (12-20); Blood Urea Nitrogen 10 mg/dL (9-16); Calcium 9.2 mg/dL (8.4-10.2); Carbon Dioxide 22 mmol/L (22-29); Chloride 109 mmol/L (96-108); Creatinine Clr Calc Pharmacy 103.2; Estimated Glomerular Filt Rate > 60; Glucose Random 157 mg/dL (60-115); Potassium 4.3 mmol/L (3.3-5.1); Sodium 141 mmol/L (135-145)
[2023-02-28] MEDS: Metoprolol Tartrate 12.5 MG HALFTAB PO (09:39)
[2023-02-28] MEDS: Apixaban 5 MG TABLET PO ×2 (09:39→19:38)
[2023-02-28 11:39] LABS: Glucose, Whole Blood 178 mg/dL (60-115)
--- NOTE | 2023-02-28 12:04 | HO.PM.IMPN ---
Subjective Subjective Date of Service: 02/28/23 Interval History: Seen and evaluated alert and interactive but overall confused tolerating clears colostomy function still not as targeted pain under fair control tolerating clears Review of Systems Review of Systems: Yes all other systems are reviewed and are negative Physical Exam Vital Signs: Vital Signs: Last Vital Signs Temp 97.8 F 02/28/23 11:33 Pulse 85 02/28/23 11:33 Resp 20 02/28/23 11:33 BP 110/62 02/28/23 11:33 Pulse Ox 95 02/28/23 11:33 O2 Del Method Room Air 02/28/23 11:33 O2 Flow Rate 2 02/23/23 15:21 Oxygen Flow Rate 2 02/23/23 05:00 BMI result Body Mass Index 24.7 Const: Other: Constitutional : Awake with stimulation, interactive, not in distress Neck : Normal inspection, Supple Cardiovascular : RRR, no JVP, no lower extremity edema Respiratory : good bilateral air entry, no crackles, wheezes or rhonchi Gastrointestinal: soft, lax, decreased bowel sounds, Non tender, Ostomy place clean with no drainage Skin : Warm, Dry Neurological : Alert & disoriented to place and time, No focal deficit Objective Data Active Medications Apixaban (Apixaban 5 Mg Tablet) 5 mg PO BID [facility] Last Admin: 02/28/23 09:39 Dose: 5 mg Documented By: ROHIT Clozapine (Clozapine 25 Mg Tablet) 50 mg PO BEDTIME [facility] Stop: 02/28/23 21:01 Clozapine (Clozapine 100 Mg Tablet) 100 mg PO BEDTIME [facility] Stop: 03/01/23 21:01 Clozapine (Clozapine 100 Mg Tablet) 200 mg PO BEDTIME [facility] Dextrose (Dextrose 50 % 25 Gm/50 Ml Syringe) 25 gm IVPUSH Q15M PRN; Protocol PRN Reason: per Hypoglycemia Standing Ord. Last Admin: 02/21/23 07:53 Dose: 25 gm Documented By: PORTIA Comments: bg 67 Glucose (Glucose Gel 15 Gm Gel..Gram.) 15 gm PO Q15M PRN; Protocol PRN Reason: per Hypoglycemia Standing Ord. Hydromorphone HCl (Hydromorphone Hcl 0.5 Mg/0.5 Ml Syringe) 0.5 mg IVPUSH Q3H PRN; Protocol PRN Reason: Pain, Severe (Pain Scale 7-10) Piperacillin Sod/Tazobactam (Sod 3.375 gm/ Sodium Chloride) 50 mls @ 100 mls/hr IV Q6H [facility] Last Infusion: 02/28/23 10:16 Dose: 0 mls/hr Documented By: ROHIT Insulin Human Lispro (Insulin Lispro 100 Unit/Ml 3 Ml Vial) 0 unit SUBCUT Q6H [facility]; Protocol Last Admin: 02/28/23 11:47 Dose: Not Given Documented By: ROHIT Non-Admin Reason: poor PO intake Levothyroxine Sodium (Levothyroxine Sodium 75 Mcg Tablet) 75 mcg PO DAILY@0600 [facility] Last Admin: 02/28/23 06:15 Dose: 75 mcg Documented By: AYLEEN Metoprolol Tartrate (Metoprolol Tartrate 12.5 Mg Halftab) 12.5 mg PO BID [facility]; Protocol Last Admin: 02/28/23 09:39 Dose: 12.5 mg Documented By: ROHIT Metoprolol Tartrate (Metoprolol Tartrate 5 Mg/5 Ml Vial) 5 mg IVPUSH Q6H PRN; Protocol PRN Reason: HR> 120 Pharmacy Consult (Consult Rx Perform Med Rec) 1 each MISCELLANE ONCE PRN PRN Reason: Consult order Sodium Chloride (0.9 % Sodium Chloride Flush 3 Ml Syringe) 3 ml IVFLUSH QSHIFT [facility] Last Admin: 02/28/23 09:39 Dose: 3 ml Documented By: ROHIT Labs 02/26/23 06:20 02/28/23 06:41 Labs: Laboratory Results - last 24 hr 02/27/23 02/28/23 02/28/23 16:47 00:32 06:06 Anion Gap Estim Creat Clear Calc Estimated GFR POC Glucose 321 H 178 H 155 H Random Glucose Calcium 02/28/23 02/28/23 06:41 11:35 Anion Gap 14 Estim Creat Clear Calc 103.2 Estimated GFR > 60 POC Glucose 178 H Random Glucose 157 H Calcium 9.2 Assessment and Plan (1) Acute hypernatremia: Status: Acute (2) Acute hypokalemia: Status: Acute (3) Afib: Status: Acute (4) S/P colectomy: Status: Acute (5) Volvulus of sigmoid colon: Status: Acute Plan 62M PMH CAD s/p CABG, paroxysmal afib, COPD, DM2, paranoid schizophrenia, hypothyroid, [facility] presented with abdominal pain, distension, hypoxia acute sigmoid volvulus POD #5 post s/p exploratory laparotomy, detorsion of sigmoid volvulus, sigmoid resection, end colostomy, Hafsa's pouch. 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 MACHINE OPERATOR eval, NDD1 w nectar thick liquids surgery following severe sepsis and acute hypoxic respiratory failure and acute metabolic encephalopathy due to aspiration pneumonia continue iv zosyn, change to po once able to tolerate weaned o2 to RA hypernatremia resolved DC IVF Hypokalemia Resolved, give replacement and follow BMP paroxysmal afib with rvr PO Metoprolol IV Metoprolol for now as needed restart Eliquis DM insulin CAD asa, statin hypothryoid synthroid paranoid schizophrenia clozaril dvt prophylaxis Eliquis full code reason for continued hospitalization: awaiting return of gi function and tolerance to diet Time Spent With Patient Time: Total time managing care of this patient today ____ minutes. Quality Stroke Does the patient have a stroke diagnosis?: No VTE Prior VTE?: No VTE Risk Level:: Medical - moderate - high VTE Device Contraindication: Treatment Not Indicated VTE Drug Contraindication: N/A - Med Ordered
--- NOTE | 2023-02-28 14:26 | ECG_ITS ---
Test Reason : sinus tachycardia Blood Pressure : / mmHG Vent. Rate : 117 BPM Atrial Rate : 000 BPM P-R Int : 000 ms QRS Dur : 084 ms QT Int : 332 ms P-R-T Axes : 000 056 -82 degrees QTc Int : 463 ms Atrial fibrillation with rapid ventricular response ST & T wave abnormality, consider inferior ischemia Abnormal ECG When compared with ECG of 20-FEB-2023 02:36, Atrial fibrillation has replaced Sinus rhythm Criteria for Inferior infarct are no longer Present Referred By: Galen Patton Electronically Signed By:Jeb Silveira
[2023-02-28 14:53] LABS: Glucose, Whole Blood 175 mg/dL (60-115)
[2023-02-28] MEDS: 0.9 % Sodium Chloride 1,000 ML 999 ML IV ×2 (14:55→16:43)
[2023-02-28] MEDS: Magnesium Sulfate/H2O 2 GM/50 ML PIGGYBACK IV (15:18)
[2023-02-28] MEDS: Digoxin 0.5 MG/2 ML AMPUL 0.25 MG IVPUSH ×2 (15:18→19:35)
[2023-02-28 18:07] LABS: Glucose, Whole Blood 141 mg/dL (60-115)
[2023-02-28] MEDS: Metoprolol Tartrate 5 MG/5 ML VIAL IVPUSH (19:36)
[2023-02-28] MEDS: cloZAPine 25 MG TABLET 50 MG PO (19:38)
[2023-03-01] VITALS: BP 92/54; PULSE 117; RESP 20; TEMP 37; O2SAT 93
[2023-03-01 00:28] LABS: Glucose, Whole Blood 151 mg/dL (60-115)
[2023-03-01 03:08] VITALS: BP 103/59; PULSE 91; RESP 18; TEMP 36.1; O2SAT 95
[2023-03-01] MEDS: Digoxin 0.5 MG/2 ML AMPUL 0.25 MG IVPUSH (03:50)
[2023-03-01] MEDS: Piperacillin Sodium/Tazobactam 3.375 GM in 0.9 % Sodium Chloride 50 ML IV ×4 (03:51→21:54)
[2023-03-01 05:18] LABS: Glucose, Whole Blood 133 mg/dL (60-115)
[2023-03-01] MEDS: Levothyroxine Sodium 75 MCG TABLET PO (05:19)
[2023-03-01 07:18] LABS: Hematocrit 33.9 % (42.0-52.0); Hemoglobin 10.9 g/dl (14.0-18.0); Mean Corpuscular HGB Conc 32.2 g/dl (31.0-36.0); Mean Corpuscular Hemoglobin 27.3 pg (27.0-33.0); Mean Corpuscular Volume 84.8 fL (80.0-98.0); Mean Platelet Volume 10.2 fL (9.4-12.4); Platelet Count 226 X10*3/uL (160-400); Red Cell Distribution Width 15.8 % (11.0-16.0); White Blood Count 13.4 X10*3/uL (4.8-10.8)
[2023-03-01 07:19] VITALS: BP 104/63; PULSE 101; RESP 20; TEMP 36.4; O2SAT 94
[2023-03-01 07:47] LABS: Anion Gap 16 (12-20); Blood Urea Nitrogen 11 mg/dL (9-16); Calcium 8.6 mg/dL (8.4-10.2); Carbon Dioxide 19 mmol/L (22-29); Chloride 113 mmol/L (96-108); Creatinine Clr Calc Pharmacy 108.8; Estimated Glomerular Filt Rate > 60; Glucose Random 143 mg/dL (60-115); Potassium 3.9 mmol/L (3.3-5.1); Sodium 144 mmol/L (135-145)
[2023-03-01 07:51] LABS: Magnesium 1.8 mg/dL (1.6-2.6)
[2023-03-01 08:06] LABS: Thyroid Stimulating Hormone 2.28 uIU/mL (0.32-4.0)
[2023-03-01] MEDS: Apixaban 5 MG TABLET PO ×2 (08:41→21:53)
[2023-03-01] MEDS: Metoprolol Tartrate 25 MG TABLET PO ×2 (08:42→21:53)
[2023-03-01] MEDS: 0.9 % Sodium Chloride Flush 3 ML SYRINGE IVFLUSH ×3 (08:45→21:54)
[2023-03-01 11:04] VITALS: BP 107/63; PULSE 95; RESP 20; TEMP 36.8; O2SAT 94
[2023-03-01 11:15] LABS: Glucose, Whole Blood 208 mg/dL (60-115)
--- NOTE | 2023-03-01 11:16 | P.PNIM_ITS ---
Subjective Subjective Date of Service: 03/01/23 Interval History: Seen and evaluated alert and interactive tolerating clears colostomy functioning well overnight pain under fair control Heart rate better controlled Review of Systems Review of Systems: Yes all other systems are reviewed and are negative Physical Exam Vital Signs: Vital Signs: Last Vital Signs Temp 98.2 F 03/01/23 11:04 Pulse 95 03/01/23 11:04 Resp 20 03/01/23 11:04 BP 107/63 03/01/23 11:04 Pulse Ox 94 03/01/23 11:04 O2 Del Method Room Air 03/01/23 11:04 O2 Flow Rate 2 02/23/23 15:21 Oxygen Flow Rate 2 02/23/23 05:00 BMI result Body Mass Index 24.7 Const: Other: Constitutional : Awake with stimulation, interactive, not in distress Neck : Normal inspection, Supple Cardiovascular : irregular irregular, no JVP, no lower extremity edema Respiratory : good bilateral air entry, no crackles, wheezes or rhonchi Gastrointestinal: soft, lax, fair bowel sounds, Non tender, Ostomy place clean with water dark secretion Skin : Warm, Dry Neurological : Alert & disoriented to place and time, No focal deficit Objective Data Active Medications Apixaban (Apixaban 5 Mg Tablet) 5 mg PO BID [facility] Last Admin: 03/01/23 08:41 Dose: 5 mg Documented By: NATHALY Clozapine (Clozapine 100 Mg Tablet) 100 mg PO BEDTIME [facility] Stop: 03/01/23 21:01 Clozapine (Clozapine 100 Mg Tablet) 200 mg PO BEDTIME [facility] Dextrose (Dextrose 50 % 25 Gm/50 Ml Syringe) 25 gm IVPUSH Q15M PRN; Protocol PRN Reason: per Hypoglycemia Standing Ord. Last Admin: 02/21/23 07:53 Dose: 25 gm Documented By: PORTIA Comments: bg 67 Glucose (Glucose Gel 15 Gm Gel..Gram.) 15 gm PO Q15M PRN; Protocol PRN Reason: per Hypoglycemia Standing Ord. Hydromorphone HCl (Hydromorphone Hcl 0.5 Mg/0.5 Ml Syringe) 0.5 mg IVPUSH Q3H PRN; Protocol PRN Reason: Pain, Severe (Pain Scale 7-10) Piperacillin Sod/Tazobactam (Sod 3.375 gm/ Sodium Chloride) 50 mls @ 100 mls/hr IV Q6H [facility] Last Infusion: 03/01/23 04:39 Dose: 0 mls/hr Documented By: TARA Insulin Human Lispro (Insulin Lispro 100 Unit/Ml 3 Ml Vial) 0 unit SUBCUT Q6H [facility]; Protocol Last Admin: 03/01/23 05:22 Dose: Not Given Documented By: TARA Non-Admin Reason: No Insulin Coverage Levothyroxine Sodium (Levothyroxine Sodium 75 Mcg Tablet) 75 mcg PO DAILY@0600 [facility] Last Admin: 03/01/23 05:19 Dose: 75 mcg Documented By: TARA Metoprolol Tartrate (Metoprolol Tartrate 5 Mg/5 Ml Vial) 5 mg IVPUSH Q6H [facility]; Protocol PRN Reason: HR> 120 Last Admin: 02/28/23 19:36 Dose: 5 mg Documented By: AYLEEN Metoprolol Tartrate (Metoprolol Tartrate 25 Mg Tablet) 25 mg PO BID [facility]; Protocol Last Admin: 03/01/23 08:42 Dose: 25 mg Documented By: NATHALY Pharmacy Consult (Consult Rx Perform Med Rec) 1 each MISCELLANE ONCE PRN PRN Reason: Consult order Sodium Chloride (0.9 % Sodium Chloride Flush 3 Ml Syringe) 3 ml IVFLUSH QSHIFT [facility] Last Admin: 03/01/23 08:45 Dose: 3 ml Documented By: NATHALY Labs 03/01/23 06:39 03/01/23 06:39 Labs: Laboratory Results - last 24 hr 02/28/23 02/28/23 02/28/23 11:35 14:49 18:04 MCV MCH MCHC RDW Plt Count MPV Absolute Nucleated RBC Nucleated RBC % (auto) Anion Gap Estim Creat Clear Calc Estimated GFR POC Glucose 178 H 175 H 141 H Random Glucose Calcium Magnesium TSH 03/01/23 03/01/23 03/01/23 00:24 05:15 06:39 MCV 84.8 MCH 27.3 MCHC 32.2 RDW 15.8 Plt Count 226 MPV 10.2 Absolute Nucleated RBC 0.000 Nucleated RBC % (auto) 0.0 Anion Gap Estim Creat Clear Calc Estimated GFR POC Glucose 151 H 133 H Random Glucose Calcium Magnesium TSH 03/01/23 03/01/23 03/01/23 06:39 06:39 11:05 MCV MCH MCHC RDW Plt Count MPV Absolute Nucleated RBC Nucleated RBC % (auto) Anion Gap 16 Estim Creat Clear Calc 108.8 Estimated GFR > 60 POC Glucose 208 H Random Glucose 143 H Calcium 8.6 D Magnesium 1.8 TSH 2.28 Assessment and Plan (1) Acute hypernatremia: Status: Acute (2) Acute hypokalemia: Status: Acute (3) S/P colectomy: Status: Acute (4) Volvulus of sigmoid colon: Status: Acute (5) Swallowing problem: Status: Acute Plan 62M PMH CAD s/p CABG, paroxysmal afib, COPD, DM2, paranoid schizophrenia, hypothyroid, from [facility] presented with abdominal pain, distension, hypoxia acute sigmoid volvulus POD #6 post s/p exploratory laparotomy, detorsion of sigmoid volvulus, sigmoid resection, end colostomy, Hafsa's pouch. 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 Quality Stroke Does the patient have a stroke diagnosis?: No VTE Prior VTE?: No VTE Risk Level:: Medical - moderate - high VTE Device Contraindication: Treatment Not Indicated VTE Drug Contraindication: N/A - Med Ordered
[2023-03-01] MEDS: Insulin Lispro 100 UNIT/ML 3 ML VIAL SUBCUT ×2 (12:04→17:57)
--- NOTE | 2023-03-01 12:20 | P.CONCA_ITS ---
History of Present Illness History of Present Illness Date of Service: 03/01/23 Chief complaint: Paroxysmal atrial fibrillation. Narrative: 62-year-old gentleman who we have been asked to assess for paroxysmal atrial fibrillation. He has history of coronary disease status post bypass surgery, paroxysmal atrial fibrillation, COPD, diabetes, schizophrenia, hypothyroid who came to hospital with abdominal pain, distension and hypoxia. He was diagnosed with acute sigmoid volvulus and is status post exploratory laparotomy with sigmoid resection and end colostomy with Hafsa pouch. Also had severe sepsis and has been on antibiotics. He was noticed to be in AFib with RVR and we were asked to help management. It appears he has reverted back to sinus rhythm at this point. His known history of AFib. He is on metoprolol 12.5 mg b.i.d. at home. He is on apixaban which was probably had during the surgery. He is denying any chest discomfort or shortness of breath. Denying any abdominal pain. He looks quite sick due to ongoing medical issues as described above. 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 Cognitive impairment COPD (chronic obstructive pulmonary disease) COVID-19 Dementia Drug induced subacute dyskinesia Dysphagia Encephalopathy Essential (primary) hypertension Exotropia, alternating, with A pattern Hyperlipidemia Hypermetropia of both eyes Hypothyroidism Palsy (spasm) of conjugate gaze Paranoid schizophrenia Personal history of transient ischemic attack (TIA), and cerebral infarction without residual deficits Ptosis of right eyelid Type 2 diabetes mellitus Surgical History Surgical History Presence of aortocoronary bypass graft Social History Social History Household Members: Unknown / Unable to assess Household Members Other:: [facility] Housing: Other Housing Other:: [facility] Do you presently have visiting nurse or other home services: No Unable to assess alcohol history related to: Unknown Patient Tobacco Use Status: Former Tobacco user Tobacco use type: Cigarette Years Smoked: SURAJ Use of substances other than those prescribed or required for medical reasons: No Currently Displaying Signs/Symptoms of Drug Intoxication Withdrawal: No Are you DNR?: No Advance Directives: Yes Advance Directives on File: Yes Advance Directives Date on File: 12/14/21 Do you have thoughts of harming others: None Do you have a plan to hurt others: No Plan service: No Current occupational status: disabled Meds Allergies Allergy/AdvReac Type Severity Reaction Status Date / Time No Known Allergies Allergy Unverified 04/05/20 19:36 [No Known Allergies*] Active Medications: Current Medications Apixaban (Apixaban 5 Mg Tablet) 5 mg PO BID [facility] Last Admin: 03/01/23 08:41 Dose: 5 mg Clozapine (Clozapine 100 Mg Tablet) 100 mg PO BEDTIME [facility] Stop: 03/01/23 21:01 Clozapine (Clozapine 100 Mg Tablet) 200 mg PO BEDTIME [facility] Dextrose (Dextrose 50 % 25 Gm/50 Ml Syringe) 25 gm IVPUSH Q15M PRN; Protocol PRN Reason: per Hypoglycemia Standing Ord. Last Admin: 02/21/23 07:53 Dose: 25 gm Glucose (Glucose Gel 15 Gm Gel..Gram.) 15 gm PO Q15M PRN; Protocol PRN Reason: per Hypoglycemia Standing Ord. Hydromorphone HCl (Hydromorphone Hcl 0.5 Mg/0.5 Ml Syringe) 0.5 mg IVPUSH Q3H PRN; Protocol PRN Reason: Pain, Severe (Pain Scale 7-10) Piperacillin Sod/Tazobactam (Sod 3.375 gm/ Sodium Chloride) 50 mls @ 100 mls/hr IV Q6H [facility] Last Infusion: 03/01/23 12:07 Dose: Infused Insulin Human Lispro (Insulin Lispro 100 Unit/Ml 3 Ml Vial) 0 unit SUBCUT Q6H [facility]; Protocol Last Admin: 03/01/23 12:04 Dose: 4 unit Levothyroxine Sodium (Levothyroxine Sodium 75 Mcg Tablet) 75 mcg PO DAILY@0600 [facility] Last Admin: 03/01/23 05:19 Dose: 75 mcg Metoprolol Tartrate (Metoprolol Tartrate 5 Mg/5 Ml Vial) 5 mg IVPUSH Q6H PRN; Protocol PRN Reason: HR> 120 Last Admin: 02/28/23 19:36 Dose: 5 mg Metoprolol Tartrate (Metoprolol Tartrate 25 Mg Tablet) 25 mg PO BID [facility]; Protocol Last Admin: 03/01/23 08:42 Dose: 25 mg Pharmacy Consult (Consult Rx Perform Med Rec) 1 each MISCELLANE ONCE PRN PRN Reason: Consult order Sodium Chloride (0.9 % Sodium Chloride Flush 3 Ml Syringe) [facility] Last Admin: 03/01/23 08:45 Dose: 3 ml Home Medications Medication Instructions Recorded Confirmed Last Taken Type aspirin 81 mg chewable tablet 81 mg PO DAILY 12/13/21 02/20/23 12/12/21 History atorvastatin 80 mg tablet 1 tab PO BEDTIME 12/13/21 02/20/23 12/12/21 History canagliflozin 100 mg tablet 1 tab PO DAILY 12/13/21 02/20/23 12/12/21 History (Invokana) clozapine 200 mg tablet 1 tab PO BEDTIME 12/13/21 02/20/23 12/12/21 History ferrous sulfate 325 mg (65 mg 325 mg PO DAILY@1700 12/13/21 02/20/23 12/12/21 History iron) tablet insulin glargine 100 unit/mL (3 20 unit subcut BEDTIME 12/13/21 02/20/23 12/12/21 History mL) subcutaneous pen (Lantus Solostar U-100 Insulin) lactulose 10 gram/15 mL oral 30 ml PO DAILY 12/13/21 02/20/23 12/12/21 History solution levothyroxine 75 mcg tablet 1 tab PO DAILY@0600 12/13/21 02/20/23 12/12/21 History linagliptin 5 mg tablet (Tradjenta) 1 tab PO DAILY 12/13/21 02/20/23 12/12/21 History omega 1-ahu-tjm-fish oil 1,000 mg 1 cap PO BID 12/13/21 02/20/23 12/12/21 History (120 mg-180 mg) capsule (Fish Oil) pantoprazole 40 mg tablet,delayed 1 tab PO BID@0630,1630 12/13/21 02/20/23 12/12/21 History release metformin 500 mg tablet 1,000 mg PO BID 12/27/22 02/20/23 Unknown History nicotine 7 mg/24 hr daily 1 patch transdermal Q24H PRN 12/27/22 02/20/23 Unknown History transdermal patch Smoking Cessation nystatin 100,000 unit/gram topical 1 appl topical BID 12/27/22 02/20/23 Unknown History powder sennosides 8.6 mg tablet (senna) 8.6 mg PO DAILY PRN Constipation 12/27/22 02/20/23 Unknown History metoprolol tartrate 25 mg tablet 12.5 mg PO BID 02/20/23 02/20/23 Unknown History zinc oxide 1 appl topical QSHIFT 02/20/23 02/20/23 Unknown History Physical Exam Vital Signs: Vital Signs: Last Vital Signs Temp 98.2 F 03/01/23 11:04 Pulse 95 03/01/23 11:04 Resp 20 03/01/23 11:04 BP 107/63 03/01/23 11:04 Pulse Ox 94 03/01/23 11:04 O2 Del Method Room Air 03/01/23 11:04 O2 Flow Rate 2 02/23/23 15:21 Oxygen Flow Rate 2 02/23/23 05:00 BMI result Body Mass Index 24.7 GENERAL APPEARANCE: Ill-appearing. NECK: no carotid bruit, no jugular venous distention. SKIN: no suspicious lesions, warm and dry. HEART: no murmurs, regular rate and rhythm. LUNGS: clear to auscultation bilaterally. ABDOMEN: soft, abdominal binder in place. EXTREMITIES: no edema. PERIPHERAL PULSES: equal. NEUROLOGIC: No gross deficits, AAO X 3 Objective Labs and Meds 03/01/23 06:39 03/01/23 06:39 Lab results: Laboratory Results - last 24 hr 02/28/23 02/28/23 03/01/23 14:49 18:04 00:24 WBC RBC Hgb Hct MCV MCH MCHC RDW Plt Count MPV Absolute Nucleated RBC Nucleated RBC % (auto) Sodium Potassium Chloride Carbon Dioxide Anion Gap BUN Creatinine Estim Creat Clear Calc Estimated GFR POC Glucose 175 H 141 H 151 H Random Glucose Calcium Magnesium TSH 03/01/23 03/01/23 03/01/23 05:15 06:39 06:39 WBC 13.4 H RBC 4.00 L Hgb 10.9 L Hct 33.9 L MCV 84.8 MCH 27.3 MCHC 32.2 RDW 15.8 Plt Count 226 MPV 10.2 Absolute Nucleated RBC 0.000 Nucleated RBC % (auto) 0.0 Sodium 144 Potassium 3.9 Chloride 113 H Carbon Dioxide 19 L Anion Gap 16 BUN 11 Creatinine 0.74 Estim Creat Clear Calc 108.8 Estimated GFR > 60 POC Glucose 133 H Random Glucose 143 H Calcium 8.6 D Magnesium TSH 03/01/23 03/01/23 06:39 11:05 WBC RBC Hgb Hct MCV MCH MCHC RDW Plt Count MPV Absolute Nucleated RBC Nucleated RBC % (auto) Sodium Potassium Chloride Carbon Dioxide Anion Gap BUN Creatinine Estim Creat Clear Calc Estimated GFR POC Glucose 208 H Random Glucose Calcium Magnesium 1.8 TSH 2.28 Assessment and Plan (1) Afib: Status: Acute Plan Pleasant 62 year gentleman with multiple medical issues who presented with sigmoid volvulus now status post surgery. He has severe sepsis and has been on antibiotics. Has known history of paroxysmal atrial fibrillation. Not unusual for him to develop AFib in this setting with Soma stress on his body. If he is able to take oral metoprolol then that can be given to him at 25 mg b.i.d.. Otherwise IV metoprolol can be given to him. If no bleeding concerns and no plan to go back to or then Eliquis should be continued. Thank you for allowing me to participate in the care of your patient. Please feel free to contact me if you have any questions. Time Spent With Patient Time: Total time managing care of this patient today ____ minutes. Procedures Date of Service Date of Service: 03/01/23
[2023-03-01 14:46] VITALS: BP 110/71; PULSE 102; RESP 20; TEMP 36.7; O2SAT 92
[2023-03-01 16:11] LABS: Glucose, Whole Blood 189 mg/dL (60-115)
[2023-03-01 19:38] VITALS: BP 130/74; PULSE 86; RESP 16; TEMP 36.3; O2SAT 93
[2023-03-01] MEDS: cloZAPine 100 MG TABLET PO (21:53)
[2023-03-01] MEDS: Metoprolol Tartrate 5 MG/5 ML VIAL IVPUSH (22:50)
[2023-03-02] VITALS (17 sets, daily range): BP systolic 90–125; BP diastolic 50–68; PULSE 88–138; RESP 16–36; TEMP 35.7–38.2; O2SAT 90–100
[2023-03-02] MEDS: Lactated Ringers 1,000 ML 999 ML IV (00:41)
[2023-03-02] MEDS: Albuterol/Iprat 2.5/0.5MG 3 ML AMPUL.NEB INHALE (00:44)
[2023-03-02] MEDS: dilTIAZem HCL 50 MG/10 ML VIAL IVPUSH (00:45)
[2023-03-02 00:59] LABS: Glucose, Whole Blood 289 mg/dL (60-115)
[2023-03-02] MEDS: Insulin Lispro 100 UNIT/ML 3 ML VIAL SUBCUT ×2 (01:07→05:42)
--- NOTE | 2023-03-02 03:23 | PC.NURSE ---
03/01/23 2250 IV lopressor 5mg given for HR 150's-160's. HR came down low 100's.0045 HR went back up 140's-160's BP-103/57. notified ordered cardizem 5mg iv and LR 1000cc bolus.Also pt has congested non productive cough resp tx's ordered and given with good effect.HR back down low 100's.pt asymptomatic.
[2023-03-02] MEDS: Piperacillin Sodium/Tazobactam 3.375 GM in 0.9 % Sodium Chloride 50 ML IV ×2 (03:56→09:20)
[2023-03-02] MEDS: Metoprolol Tartrate 5 MG/5 ML VIAL IVPUSH ×2 (04:59→07:31)
[2023-03-02 05:38] LABS: Glucose, Whole Blood 160 mg/dL (60-115)
[2023-03-02] MEDS: Acetaminophen 325 MG TABLET 650 MG PO (05:42)
[2023-03-02] MEDS: Levothyroxine Sodium 75 MCG TABLET PO (05:42)
--- NOTE | 2023-03-02 05:58 | PM.EVENT ---
Event Note Date of Service: 03/02/23 Event Note: Patient febrile, will obtain blood cultures, chest x-ray and UA Time Spent With Patient Time: Total time managing care of this patient today ____ minutes.
--- NOTE | 2023-03-02 06:12 | PC.NURSE ---
0500 HR back up 140's-150's IV lopressor 5mg given.0525 temperature 100.8 rectally notified.order tylenol given at 0540 stat CXR,lactic ,blood cultures and ua +c+s.
[2023-03-02] MEDS: 0.9 % Sodium Chloride Flush 3 ML SYRINGE IVFLUSH ×3 (07:31→21:12)
[2023-03-02 08:38] LABS: Lactic Acid 0.8 mmol/L (0.5-2.0)
[2023-03-02] MEDS: Metoprolol Tartrate 25 MG TABLET PO (09:16)
[2023-03-02] MEDS: Apixaban 5 MG TABLET PO (09:16)
[2023-03-02 09:24] LABS: Glucose, Whole Blood 155 mg/dL (60-115)
--- NOTE | 2023-03-02 10:50 | PM.PNCARD ---
Subjective Subjective Date of Service: 03/02/23 Principal diagnosis: Atrial fibrillation Interval history: Patient continues to have intermittent episode of atrial fibrillation requiring intermittent p.r.n. IV parenteral metoprolol dose with conversion. Had episode overnight and did receive metoprolol this morning. Currently in sinus rhythm. Patient not able to provide any history and appears confused. Review of Systems Review of Systems Yes Unobtainable due to mental status Physical Exam Vital Signs: Last Vital Signs Temp 97.0 F 03/02/23 07:10 Pulse 124 H 03/02/23 07:10 Resp 17 03/02/23 07:10 BP 109/63 03/02/23 07:10 Pulse Ox 94 03/02/23 07:10 O2 Del Method Room Air 03/02/23 07:10 O2 Flow Rate 2 02/23/23 15:21 Oxygen Flow Rate 2 02/23/23 05:00 BMI result Body Mass Index 24.7 GENERAL APPEARANCE: Ill-appearing. NECK: no carotid bruit, no jugular venous distention. SKIN: no suspicious lesions, warm and dry. HEART: no murmurs, regular rate and rhythm. LUNGS: clear to auscultation bilaterally. ABDOMEN: soft, abdominal binder in place. EXTREMITIES: no edema. PERIPHERAL PULSES: equal. NEUROLOGIC: No gross deficits, AAO X 3 Objective Labs and Meds 03/01/23 06:39 03/01/23 06:39 Lab results: Laboratory Results - last 24 hr 03/01/23 03/01/23 03/02/23 11:05 16:06 00:53 POC Glucose 208 H 189 H 289 H Lactic Acid 03/02/23 03/02/23 03/02/23 05:33 08:16 09:21 POC Glucose 160 H 155 H Lactic Acid 0.8 Imaging Radiologist's impression: Impressions Chest X-Ray 03/02/23 05:45 IMPRESSION: Streaky linear densities bilateral mid to lower lung field suggests atelectasis and/or scarring. There is also mild increased markings in the lower lung davila suspected to be chronic as similar change was seen previously. There is no definitive active infiltrate or significant pleural effusion. Chest X-Ray 03/02/23 10:34 IMPRESSION: Mild linear atelectasis/scarring without significant change. If symptoms persist or worsen, short-term PA and lateral views of chest are recommended. Progress Note: A&P Assessment and plan (1) Paroxysmal atrial fibrillation: Status: Acute Assessment and Plan: Paroxysmal atrial fibrillation, with recurrent episodes most likely triggered by acute medical/surgical illness. Continues to have intermittent episodes. Consider use of antiarrhythmic drug, can use Multaq 400 mg b.i.d. to suppress atrial fibrillation episode. If surgically okay, could also consider using oral anticoagulation given his significant multiple risk factors and prior history of atrial fibrillation as well. Consider Eliquis 5 mg b.i.d. and can discontinue aspirin therapy. Continue to provide supportive care and treatment for his underlying medical/surgical illness. Will follow with you Time Spent With Patient Time: Total time managing care of this patient today ____ minutes. Progress Note: Quality Stroke Does the patient have a stroke diagnosis?: No Procedures Date of Service Date of Service: 03/02/23
[2023-03-02] MEDS: 0.9 % Sodium Chloride 1,000 ML 999 ML IV ×4 (11:00→17:18)
[2023-03-02 11:06] LABS: Glucose, Whole Blood 136 mg/dL (60-115)
--- NOTE | 2023-03-02 11:13 | HO.PM.IMPN ---
Subjective Subjective Date of Service: 03/02/23 Interval History: Seen and evaluated more sleepy and lethargic, spiked fever overnight tolerating NDD2 colostomy functioning well pain under fair control Heart rate still going up to 130-150s Review of Systems Review of Systems: Yes Unobtainable due to mental status Physical Exam Vital Signs: Vital Signs: Last Vital Signs Temp 97.0 F 03/02/23 07:10 Pulse 124 H 03/02/23 07:10 Resp 17 03/02/23 07:10 BP 109/63 03/02/23 07:10 Pulse Ox 94 03/02/23 07:10 O2 Del Method Room Air 03/02/23 07:10 O2 Flow Rate 2 02/23/23 15:21 Oxygen Flow Rate 2 02/23/23 05:00 BMI result Body Mass Index 24.7 Const: Other: Constitutional : Altered, Awakes with stimulation, not in distress Neck : Normal inspection, Supple Cardiovascular : irregular irregular, tachycardia, no JVP, no lower extremity edema Respiratory : good bilateral air entry, basal crackles Gastrointestinal: soft, lax, fair bowel sounds, Non tender, Ostomy place clean with water dark secretion Skin : Warm, Dry Neurological : Alert & disoriented to place and time, No focal deficit Objective Data Active Medications Acetaminophen (Acetaminophen 325 Mg Tablet) 650 mg PO Q8H PRN PRN Reason: fever Last Admin: 03/02/23 05:42 Dose: 650 mg Documented By: SARAH Albuterol/Ipratropium (Albuterol/Iprat 2.5/0.5mg 3 Ml Ampul.Neb) 3 ml INHALE RQ4H PRN PRN Reason: Shortness of Breath/Wheezing Last Admin: 03/02/23 00:44 Dose: 3 ml Documented By: ADONAY Apixaban (Apixaban 5 Mg Tablet) 5 mg PO BID [facility] Last Admin: 03/02/23 09:16 Dose: 5 mg Documented By: MP Clozapine (Clozapine 100 Mg Tablet) 100 mg PO BEDTIME [facility] Dextrose (Dextrose 50 % 25 Gm/50 Ml Syringe) 25 gm IVPUSH Q15M PRN; Protocol PRN Reason: per Hypoglycemia Standing Ord. Last Admin: 02/21/23 07:53 Dose: 25 gm Documented By: PORTIA Comments: bg 67 Glucose (Glucose Gel 15 Gm Gel..Gram.) 15 gm PO Q15M PRN; Protocol PRN Reason: per Hypoglycemia Standing Ord. Hydromorphone HCl (Hydromorphone Hcl 0.5 Mg/0.5 Ml Syringe) 0.5 mg IVPUSH Q3H PRN; Protocol PRN Reason: Pain, Severe (Pain Scale 7-10) Sodium Chloride (Ns) 1,000 mls @ 999 mls/hr IV .Q1H1M [facility] Stop: 03/02/23 13:15 Ampicillin Sodium/Sulbactam (Sodium 3 gm/ Sodium Chloride) 100 mls @ 200 mls/hr IV Q8H [facility] Insulin Human Lispro (Insulin Lispro 100 Unit/Ml 3 Ml Vial) 0 unit SUBCUT Q6H [facility]; Protocol Last Admin: 03/02/23 05:42 Dose: 2 unit Documented By: SARAH Levothyroxine Sodium (Levothyroxine Sodium 75 Mcg Tablet) 75 mcg PO DAILY@0600 [facility] Last Admin: 03/02/23 05:42 Dose: 75 mcg Documented By: SARAH Metoprolol Tartrate (Metoprolol Tartrate 5 Mg/5 Ml Vial) 5 mg IVPUSH Q6H PRN; Protocol PRN Reason: HR> 120 Last Admin: 03/02/23 07:31 Dose: 5 mg Documented By: MP Metoprolol Tartrate (Metoprolol Tartrate 25 Mg Tablet) 25 mg PO BID [facility]; Protocol Last Admin: 03/02/23 09:16 Dose: 25 mg Documented By: MP Pharmacy Consult (Consult Rx Perform Med Rec) 1 each MISCELLANE ONCE PRN PRN Reason: Consult order Pharmacy Consult (Consult Rx Vancomycin Dosing) 1 each MISCELLANE DAILY PRN PRN Reason: Consult order Sodium Chloride (0.9 % Sodium Chloride Flush 3 Ml Syringe) 3 ml IVFLUSH QSHIFT [facility] Last Admin: 03/02/23 07:31 Dose: 3 ml Documented By: MP Labs 03/01/23 06:39 03/01/23 06:39 Labs: Laboratory Results - last 24 hr 03/01/23 03/01/23 03/02/23 11:05 16:06 00:53 POC Glucose 208 H 189 H 289 H Lactic Acid 03/02/23 03/02/23 03/02/23 05:33 08:16 09:21 POC Glucose 160 H 155 H Lactic Acid 0.8 03/02/23 11:03 POC Glucose 136 H Lactic Acid Assessment and Plan (1) Paroxysmal atrial fibrillation: Status: Acute (2) Swallowing problem: Status: Acute (3) Severe sepsis: Status: Acute (4) Pneumonia: Status: Acute (5) Volvulus of sigmoid colon: Status: Acute Plan 62M PMH CAD s/p CABG, paroxysmal afib, COPD, DM2, paranoid schizophrenia, hypothyroid, [facility] presented with abdominal pain, distension, hypoxia Sepsis 2/2 Pneumonia Seen on CXR this morning Blood cx pending Start broad spectrum of Vancomycin and Unasyn Toxic metabolic encephalopathy could be 2/2 infection, medications Treat with Abx Decrease Clozapine to 100 mg at bedtime recurrent reorientation acute sigmoid volvulus POD #7 post s/p exploratory laparotomy, detorsion of sigmoid volvulus, sigmoid resection, end colostomy, Hafsa's pouch. Ostomy functioning Advance diet to NDD1 now surgery following severe sepsis and acute hypoxic respiratory failure and acute metabolic encephalopathy due to aspiration pneumonia Early during admission, Hypoxia resolved Finished 10 days of Zosyn Swallowing problem COAT AGENT eval, NDD1 w nectar thick liquids hypernatremia resolved DC IVF Hypokalemia Resolved, give replacement and follow BMP paroxysmal afib with rvr better controlled PO Metoprolol Start PO Multaq, QTc 460 IV Metoprolol for now as needed restart Eliquis Cardiology input appreciated DM insulin CAD asa, statin hypothryoid synthroid paranoid schizophrenia clozaril dvt prophylaxis Eliquis full code reason for continued hospitalization: awaiting return of gi function and tolerance to diet Time Spent With Patient Time: Total time managing care of this patient today ____ minutes. Quality Stroke Does the patient have a stroke diagnosis?: No VTE Prior VTE?: No VTE Risk Level:: Medical - moderate - high VTE Device Contraindication: Treatment Not Indicated VTE Drug Contraindication: N/A - Med Ordered
[2023-03-02] MEDS: Ampicillin Sodium/Sulbactam Na 3 GM in 0.9 % Sodium Chloride 100 ML IV ×2 (12:36→21:14)
--- NOTE | 2023-03-02 12:41 | MHC.SLORD ---
Speech Language Pathology Order Status: Attempted to see patient at lunch, patient somnambulant, per RN only intermittently awake, taking very little PO. Not appropriate for PO trials. Over weekend patient was advanced from [place] Thick clear liquids to NDD1 with [place] Thick liquids by TSP only, 1-1 feeding per CYTOGENETIC TECHNICIAN recommendations. Patient currently presenting with fever, change in respiratory status. Recommend NPO at this time, CYTOGENETIC TECHNICIAN will re-assess swallow 03/03, MD notified by secure text.
[2023-03-02] MEDS: vancomycin/NS 2,000 MG/500 ML PLAST..BAG 250 MG IV (13:13)
[2023-03-02] MEDS: Dronedarone HCl 400 MG TABLET PO (13:14)
--- NOTE | 2023-03-02 13:37 | PM.PNGS ---
Subjective Subjective Date of Service: 03/02/23 Interval history: No events over the weekend but developed low grade temp this morning. Ostomy functioning well. Patient actively coughing, seems more lethargic. Physical Exam Vital Signs: Vital Signs: Last Vital Signs Temp 99.1 F 03/02/23 12:40 Pulse 88 03/02/23 11:23 Resp 18 03/02/23 11:23 BP 125/57 L 03/02/23 12:40 Pulse Ox 97 03/02/23 12:40 O2 Del Method Room Air 03/02/23 11:23 O2 Flow Rate 2 02/23/23 15:21 Oxygen Flow Rate 2 02/23/23 05:00 BMI result Body Mass Index 24.7 Const: General: ill appearing and lethargic Orientation/consciousness: lethargic Resp: Effort & Inspection: normal respiratory effort and Actively coughing GI: Other: ostomy pink, soft brown stool in appliance Inspection: Yes distended (minimally) and Yes incision (clean) Palpation (GI): Soft to palpation, nontender, no guarding and not rigid Skin: General skin exam: no rashes or lesions noted and no jaundice Objective Data Active Medications Acetaminophen (Acetaminophen 325 Mg Tablet) 650 mg PO Q8H PRN PRN Reason: fever Last Admin: 03/02/23 05:42 Dose: 650 mg Documented By: SARAH Albuterol/Ipratropium (Albuterol/Iprat 2.5/0.5mg 3 Ml Ampul.Neb) 3 ml INHALE RQ4H PRN PRN Reason: Shortness of Breath/Wheezing Last Admin: 03/02/23 00:44 Dose: 3 ml Documented By: ADONAY Apixaban (Apixaban 5 Mg Tablet) 5 mg PO BID [facility] Last Admin: 03/02/23 09:16 Dose: 5 mg Documented By: MP Clozapine (Clozapine 100 Mg Tablet) 100 mg PO BEDTIME [facility] Dextrose (Dextrose 50 % 25 Gm/50 Ml Syringe) 25 gm IVPUSH Q15M PRN; Protocol PRN Reason: per Hypoglycemia Standing Ord. Last Admin: 02/21/23 07:53 Dose: 25 gm Documented By: PORTIA Comments: bg 67 Dronedarone (Dronedarone Hcl 400 Mg Tablet) 400 mg PO BID [facility] Last Admin: 03/02/23 13:14 Dose: 400 mg Documented By: MP Glucose (Glucose Gel 15 Gm Gel..Gram.) 15 gm PO Q15M PRN; Protocol PRN Reason: per Hypoglycemia Standing Ord. Hydromorphone HCl (Hydromorphone Hcl 0.5 Mg/0.5 Ml Syringe) 0.5 mg IVPUSH Q3H PRN; Protocol PRN Reason: Pain, Severe (Pain Scale 7-10) Ampicillin Sodium/Sulbactam (Sodium 3 gm/ Sodium Chloride) 100 mls @ 200 mls/hr IV Q8H [facility] Last Infusion: 03/02/23 13:14 Dose: 0 mls/hr Documented By: MP Vancomycin HCl (Vancomycin/Ns) 2,000 mg in 500 mls @ 250 mls/hr IV ONCE ONE Stop: 03/02/23 13:51 Last Admin: 03/02/23 13:13 Dose: 250 mls/hr Documented By: MP Insulin Human Lispro (Insulin Lispro 100 Unit/Ml 3 Ml Vial) 0 unit SUBCUT Q6H [facility]; Protocol Last Admin: 03/02/23 11:44 Dose: Not Given Documented By: MARGO Non-Admin Reason: Glucose out of range, POC 136 Levothyroxine Sodium (Levothyroxine Sodium 75 Mcg Tablet) 75 mcg PO DAILY@0600 [facility] Last Admin: 03/02/23 05:42 Dose: 75 mcg Documented By: SARAH Metoprolol Tartrate (Metoprolol Tartrate 5 Mg/5 Ml Vial) 5 mg IVPUSH Q6H PRN; Protocol PRN Reason: HR> 120 Last Admin: 03/02/23 07:31 Dose: 5 mg Documented By: MP Metoprolol Tartrate (Metoprolol Tartrate 25 Mg Tablet) 25 mg PO BID [facility]; Protocol Last Admin: 03/02/23 09:16 Dose: 25 mg Documented By: MP Pharmacy Consult (Consult Rx Perform Med Rec) 1 each MISCELLANE ONCE PRN PRN Reason: Consult order Pharmacy Consult (Consult Rx Vancomycin Dosing) 1 each MISCELLANE DAILY PRN PRN Reason: Consult order Sodium Chloride (0.9 % Sodium Chloride Flush 3 Ml Syringe) 3 ml IVFLUSH QSHIFT [facility] Last Admin: 03/02/23 13:14 Dose: 3 ml Documented By: MP Labs 03/01/23 06:39 03/01/23 06:39 Labs: Laboratory Results - last 24 hr 03/01/23 03/02/23 03/02/23 16:06 00:53 05:33 POC Glucose 189 H 289 H 160 H Lactic Acid 03/02/23 03/02/23 03/02/23 08:16 09:21 11:03 POC Glucose 155 H 136 H Lactic Acid 0.8 Procedures Date of Service Date of Service: 03/02/23 Progress Note: A&P Assessment and plan (1) Pneumonia: Status: Acute (2) Severe sepsis: Status: Acute (3) S/P colectomy: Status: Acute (4) Volvulus of sigmoid colon: Status: Acute Plan s/p ex lap, sigmoid resection end colostomy for sigmoid volvulus. No acute surgical issues. Abdomen very benign today- soft, NTND, ostomy viable appearing and functioning well. Fever likely secondary to PNA, ?aspiration. Started on IV vanco. Encouraged OOB/ambulation as tolerated and IS use to reduce atelectasis. Time Spent With Patient Time: Total time managing care of this patient today ____ minutes. Quality Stroke Does the patient have a stroke diagnosis?: No VTE Prior VTE?: No VTE Risk Level:: Medical - moderate - high VTE Device Contraindication: Treatment Not Indicated VTE Drug Contraindication: N/A - Med Ordered
[2023-03-02] MEDS: Dextrose 5 % and Lactated Ring 1,000 ML 100 ML IVCONT (16:00)
[2023-03-02 16:14] LABS: Glucose, Whole Blood 132 mg/dL (60-115)
[2023-03-02] MEDS: Albumin Human 25 % 100 ML 133.33 ML IV ×2 (16:29→17:18)
[2023-03-02 16:55] LABS: Creatinine Clr Calc Pharmacy 127.8; Estimated Glomerular Filt Rate > 60
[2023-03-02 17:04] LABS: VBG Base Excess -7.7 mmol/L; VBG HCO3 15 mmol/L (22-26); VBG pCO2 22 mmHg; VBG pH 7.42 (7.32-7.43); VBG pO2 107 mmHg
[2023-03-02 17:04] LABS: Venous Blood Gas Refer to POC result
[2023-03-02 17:23] LABS: Alanine Aminotransferase 13 U/L (0-40); Albumin Level 2.7 g/dL (3.5-5.0); Alkaline Phosphatase 66 U/L (39-117); Anion Gap 12 (12-20); Aspartate Amino Transferase 18 U/L (5-37); Bilirubin Direct 0.4 mg/dL (0.0-0.5); Bilirubin Total 0.7 mg/dL (0.0-1.0); Blood Urea Nitrogen 14 mg/dL (9-16); Calcium 7.7 mg/dL (8.4-10.2); Carbon Dioxide 17 mmol/L (22-29); Chloride 121 mmol/L (96-108); Creatinine Clr Calc Pharmacy 127.8; Estimated Glomerular Filt Rate > 60; Glucose Random 143 mg/dL (60-115); Phosphorus 1.7 mg/dL (2.7-4.5); Potassium 3.3 mmol/L (3.3-5.1); Sodium 147 mmol/L (135-145); Total Protein 5.3 g/dL (6.5-8.0)
--- NOTE | 2023-03-02 17:37 | PHA.PROG ---
Admission Date/Time: February 20, 2023 06:16 Indication: Sepsis Weight in k.4 kg Adjusted body weight in Kg: [place] body weight in Kg: Obesity Dosing Indication % IBW: Serum Creatinine - Last 168 Hours 02/23/23 02/24/23 02/25/23 21:59 04:39 07:15 Creatinine 0.86 0.79 0.70 02/26/23 02/28/23 03/01/23 06:20 06:41 06:39 Creatinine 0.75 0.78 0.74 03/02/23 03/02/23 14:58 16:54 Creatinine 0.63 0.63 Estimated CrCl and GFR - Last 168 Hours 02/23/23 02/24/23 02/25/23 21:59 04:39 07:15 Estim Creat Clear Calc 93.6 101.9 115.0 Estimated GFR > 60 > 60 > 60 02/26/23 02/28/23 03/01/23 06:20 06:41 06:39 Estim Creat Clear Calc 107.3 103.2 108.8 Estimated GFR > 60 > 60 > 60 03/02/23 03/02/23 14:58 16:54 Estim Creat Clear Calc 127.8 127.8 Estimated GFR > 60 > 60 Vancomycin Loading Dose: 2000mg x1 Current Vancomycin Dosing Regimen: 1250mg Q12H Vancomycin Monitoring using AUC goal of 400 - 600 range with trough as surrogate marker: 503 mg/L Date and Time for next Vancomycin Level to be drawn: 03/03/23 @2100 Pharmacist Comments on Vancomycin Plan: Predicted trough of 14.9 mg/L Vancomycin dosing will take advantage of [facility] as a clinical decision support tool that uses Bayesian modeling to calculate individual patient's pharmacokinetic parameters and forecast the patient's drug concentration time course with the target goal AUC 24 range of 400 - 600 mg/L/hr.
--- NOTE | 2023-03-02 18:04 | PM.EVENT ---
Event Note Date of Service: 03/02/23 Event Note: Pt timo Time Spent With Patient Time: Total time managing care of this patient today ____ minutes.
[2023-03-02] MEDS: Albumin Human 25 % 100 ML IV ×2 (18:06→18:58)
--- NOTE | 2023-03-02 18:46 | P.CONCC_ITS ---
History of Present Illness Data of Consult Service Date: 03/02/23 Requesting physician: Angelica Alonzo Primary Care Provider: DO CEFERINO Jorge Reason for consult: Level of care 62-year-old gentleman with underlying CAD status post CABG, AFib, COPD, diabetes mellitus, hypothyroidism, [facility]23 with abdominal distention and hypoxemia secondary to sigmoid volvulus to hospitalist service, initially managed conservatively, now POD #7 status post sigmoidectomy with colostomy being monitored on the telemetry garnica. Overnight patient with worsening lethargy and hypotension. Patient evaluate at 16:[address] Patton request - on my exam, SBP 80's, lethargic arousable to sternal rub. No laboratory studies available. BMP, VBG,, albumin level, emp iric albumin supplementaation ordered. VBG essentially normal. Laboratory studies significant for hypophosphatemia and hypoalbuminemia. Of note, patient is also on increasing clozapine dosage. After albumin SBP improved to 100's. Review of Systems Review of Systems: Yes Unobtainable due to mental condition [facility] Past Medical History Medical History (Updated 03/02/23 @ 19:03 by Kevin Rodriguez MD) Altered mental status Amblyopia, left eye Anemia Atherosclerotic heart disease of [place] coronary artery without angina pectoris [place] deformity of finger Cognitive impairment COPD (chronic obstructive pulmonary disease) COVID-19 Dementia Drug induced subacute dyskinesia Dysphagia Encephalopathy Essential (primary) hypertension Exotropia, alternating, with A pattern Hyperlipidemia Hypermetropia of both eyes Hypothyroidism Palsy (spasm) of conjugate gaze Paranoid schizophrenia Personal history of transient ischemic attack (TIA), and cerebral infarction without residual deficits Ptosis of right eyelid Type 2 diabetes mellitus Surgical History Surgical History Presence of aortocoronary bypass graft Social History Social History Household Members: Unknown / Unable to assess Household Members Other:: [facility] Housing: Other Housing Other:: [facility] Do you presently have visiting nurse or other home services: No Unable to assess alcohol history related to: Unknown Patient Tobacco Use Status: Former Tobacco user Tobacco use type: Cigarette Years Smoked: SURAJ Use of substances other than those prescribed or required for medical reasons: No Currently Displaying Signs/Symptoms of Drug Intoxication Withdrawal: No Are you DNR?: No Advance Directives: Yes Advance Directives on File: Yes Advance Directives Date on File: 12/14/21 Do you have thoughts of harming others: None Do you have a plan to hurt others: No Plan service: No Current occupational status: disabled Meds Allergies Allergy/AdvReac Type Severity Reaction Status Date / Time No Known Allergies Allergy Unverified 04/05/20 19:36 [No Known Allergies*] Active Medications: Current Medications Acetaminophen (Acetaminophen 325 Mg Tablet) 650 mg PO Q8H PRN PRN Reason: fever Last Admin: 03/02/23 05:42 Dose: 650 mg Albuterol/Ipratropium (Albuterol/Iprat 2.5/0.5mg 3 Ml Ampul.Neb) 3 ml INHALE RQ4H PRN PRN Reason: Shortness of Breath/Wheezing Last Admin: 03/02/23 00:44 Dose: 3 ml Apixaban (Apixaban 5 Mg Tablet) 5 mg PO BID [facility] Last Admin: 03/02/23 09:16 Dose: 5 mg Clozapine (Clozapine 100 Mg Tablet) 100 mg PO BEDTIME [facility] Dextrose (Dextrose 50 % 25 Gm/50 Ml Syringe) 25 gm IVPUSH Q15M PRN; Protocol PRN Reason: per Hypoglycemia Standing Ord. Last Admin: 02/21/23 07:53 Dose: 25 gm Dronedarone (Dronedarone Hcl 400 Mg Tablet) 400 mg PO BID [facility] Last Admin: 03/02/23 13:14 Dose: 400 mg Glucose (Glucose Gel 15 Gm Gel..Gram.) 15 gm PO Q15M PRN; Protocol PRN Reason: per Hypoglycemia Standing Ord. Hydromorphone HCl (Hydromorphone Hcl 0.5 Mg/0.5 Ml Syringe) 0.5 mg IVPUSH Q3H PRN; Protocol PRN Reason: Pain, Severe (Pain Scale 7-10) Ampicillin Sodium/Sulbactam (Sodium 3 gm/ Sodium Chloride) 100 mls @ 200 mls/hr IV Q8H [facility] Last Infusion: 03/02/23 13:14 Dose: Infused Dextrose/Lactated Ringer's (D5lr) 1,000 mls @ 100 mls/hr IVCONT .Q10H [facility] Last Admin: 03/02/23 16:00 Dose: 100 mls/hr Caspofungin 70 mg/ Sodium (Chloride) 250 mls @ 250 mls/hr IV ONCE ONE Stop: 03/02/23 19:59 Caspofungin 50 mg/ Sodium (Chloride) 250 mls @ 250 mls/hr IV Q24H [facility] Vancomycin HCl 1,250 mg/ (Sodium Chloride) 250 mls @ 166.667 mls/hr IV Q12H [facility] Albumin Human (Kedbumin 25 %) 100 mls @ 100 mls/hr IV Q1H [facility] Stop: 03/02/23 19:59 Last Admin: 03/02/23 18:06 Dose: 100 mls/hr Potassium Phosphate (Kphos) 15 mmol in 250 mls @ 62.5 mls/hr IV Q4H [facility] Stop: 03/03/23 03:59 Insulin Human Lispro (Insulin Lispro 100 Unit/Ml 3 Ml Vial) 0 unit SUBCUT Q6H [facility]; Protocol Last Admin: 03/02/23 15:59 Dose: Not Given Levothyroxine Sodium (Levothyroxine Sodium 75 Mcg Tablet) 75 mcg PO DAILY@0600 [facility] Last Admin: 03/02/23 05:42 Dose: 75 mcg Metoprolol Tartrate (Metoprolol Tartrate 5 Mg/5 Ml Vial) 5 mg IVPUSH Q6H PRN; Protocol PRN Reason: HR> 120 Last Admin: 03/02/23 07:31 Dose: 5 mg Metoprolol Tartrate (Metoprolol Tartrate 25 Mg Tablet) 25 mg PO BID [facility]; Protocol Last Admin: 03/02/23 09:16 Dose: 25 mg Pharmacy Consult (Consult Rx Perform Med Rec) 1 each MISCELLANE ONCE PRN PRN Reason: Consult order Pharmacy Consult (Consult Rx Vancomycin Dosing) 1 each MISCELLANE DAILY PRN PRN Reason: Consult order Sodium Chloride (0.9 % Sodium Chloride Flush 3 Ml Syringe) [facility] Admin: 03/02/23 13:14 Dose: 3 ml Home Medications Medication Instructions Recorded Confirmed Last Taken Type aspirin 81 mg chewable tablet 81 mg PO DAILY 12/13/21 02/20/23 12/12/21 History atorvastatin 80 mg tablet 1 tab PO BEDTIME 12/13/21 02/20/23 12/12/21 History canagliflozin 100 mg tablet 1 tab PO DAILY 12/13/21 02/20/23 12/12/21 History (Invokana) clozapine 200 mg tablet 1 tab PO BEDTIME 12/13/21 02/20/23 12/12/21 History ferrous sulfate 325 mg (65 mg 325 mg PO DAILY@1700 12/13/21 02/20/23 12/12/21 History iron) tablet insulin glargine 100 unit/mL (3 20 unit subcut BEDTIME 12/13/21 02/20/23 12/12/21 History mL) subcutaneous pen (Lantus Solostar U-100 Insulin) lactulose 10 gram/15 mL oral 30 ml PO DAILY 12/13/21 02/20/23 12/12/21 History solution levothyroxine 75 mcg tablet 1 tab PO DAILY@0600 12/13/21 02/20/23 12/12/21 History linagliptin 5 mg tablet (Tradjenta) 1 tab PO DAILY 12/13/21 02/20/23 12/12/21 History omega 1-dqx-zhl-fish oil 1,000 mg 1 cap PO BID 12/13/21 02/20/23 12/12/21 History (120 mg-180 mg) capsule (Fish Oil) pantoprazole 40 mg tablet,delayed 1 tab PO BID@0630,1630 12/13/21 02/20/23 12/12/21 History release metformin 500 mg tablet 1,000 mg PO BID 12/27/22 02/20/23 Unknown History nicotine 7 mg/24 hr daily 1 patch transdermal Q24H PRN 12/27/22 02/20/23 Unknown History transdermal patch Smoking Cessation nystatin 100,000 unit/gram topical 1 appl topical BID 12/27/22 02/20/23 Unknown History powder sennosides 8.6 mg tablet (senna) 8.6 mg PO DAILY PRN Constipation 12/27/22 02/20/23 Unknown History metoprolol tartrate 25 mg tablet 12.5 mg PO BID 02/20/23 02/20/23 Unknown History zinc oxide 1 appl topical QSHIFT 02/20/23 02/20/23 Unknown History Physical Exam Vital Signs: Vital Signs: Last Vital Signs Temp 98.5 F 03/02/23 18:36 Pulse 92 03/02/23 18:36 Resp 20 03/02/23 16:00 BP 98/58 L 03/02/23 18:36 Pulse Ox 94 03/02/23 18:36 O2 Del Method Room Air 03/02/23 18:36 O2 Flow Rate 2 02/23/23 15:21 Oxygen Flow Rate 2 02/23/23 05:00 BMI result Body Mass Index 24.7 Const: General: no acute distress and lethargic (arousable) Orientation/consciousness: lethargic (arousable) Eyes: Sclerae: sclerae normal EOM: EOMs intact bilaterally Neck: Neck: Yes no lymphadenopathy, Yes trachea midline and Yes supple Resp: Effort & Inspection: normal respiratory effort and no respiratory distress Auscultation: clear to auscultation bilaterally Cardio: Rate: regular rate Rhythm: regular rhythm Heart sounds: no gallops, no murmurs and no rubs GI: Inspection: Yes other (ostomy with output) Palpation (GI): Soft to palpation and Other GI palpation findings present ( Nontender) Auscultation: normal bowel sounds Extrem: General: No clubbing, No cyanosis and Yes edema (trace bilateral) Results Labs 03/01/23 06:39 03/02/23 16:54 Labs: BMP 03/02/23 03/02/23 14:58 16:54 Sodium 147 H Potassium 3.3 Chloride 121 H Carbon Dioxide 17 L BUN 14 Creatinine 0.63 0.63 Calcium 7.7 L D Liver Function 03/02/23 Range/Units 16:54 Total Bilirubin 0.7 (0.0-1.0) mg/dL Direct Bilirubin 0.4 (0.0-0.5) mg/dL AST 18 (5-37) U/L ALT 13 (0-40) U/L Alkaline Phosphatase 66 (39-117) U/L Albumin 2.7 L (3.5-5.0) g/dL Microbiology Microbiology Results: Microbiology 02/20/23 02:07 Blood - Venous Blood Culture - Final No growth after 5 days. 02/20/23 02:07 Blood - Venous Blood Culture - Final No growth after 5 days. 02/20/23 Unknown Urine Catheterized - Straight Catheter Urine Culture - Final Jessica glabrata Assessment and Plan (1) Hypophosphatemia: Status: Acute (2) Hypoalbuminemia: Status: Acute (3) Intravascular volume depletion: Status: Acute (4) Adverse effect of clozapine: Status: Acute Plan Impression 62 year-old gentleman with underlying paranoid schizophrenia hospitalized with sigmoid volvulus, now POD #7 after sigmoidectomy with ostomy \, now with intravascular volume depletion secondary to hypoalbuminemia and poor PO intake further exacerbated by malnutrition with hypophosphatemia and lethargy from increased clozapine dosage. Hypotension improving with albumin support. Jessica glabrata in urine from 02/18/2023 appars to be of little clinical significance. Recommendations: Continue colloidal support with additional 2 bottles of albumin. Replace phosphorus. Stop clozapine. Hold metoprolol until BP improves. At this time patient does not require intensive care level of monitoring, please notify for re-evaluation if patient's condition changes. Time Spent With Patient Time: Total time managing care of this patient today ____ minutes.
[2023-03-02] MEDS: Caspofungin Acetate 70 MG in 0.9 % Sodium Chloride 250 ML 250 MG IV (21:14)
[2023-03-02] MEDS: Potassium Phosphate/NS 15 MMOL/250 ML PLAST..BAG 62.5 MMOL IV (22:01)
[2023-03-02] MEDS: vancomycin HCL 1,250 MG in 0.9 % Sodium Chloride 250 ML 166.67 MG IV (23:18)
[2023-03-03] VITALS (7 sets, daily range): BP systolic 97–134; BP diastolic 50–81; PULSE 88–132; RESP 20–24; TEMP 36.1–37.1; O2SAT 93–96
--- NOTE | 2023-03-03 | ECG_ITS ---
Test Reason : PAF Blood Pressure : / mmHG Vent. Rate : 110 BPM Atrial Rate : 000 BPM P-R Int : 000 ms QRS Dur : 078 ms QT Int : 310 ms P-R-T Axes : 000 026 210 degrees QTc Int : 419 ms Atrial fibrillation with rapid ventricular response Low voltage QRS Nonspecific ST and T wave abnormality Abnormal ECG When compared with ECG of 28-FEB-2023 14:25, No significant change was found Referred By: Reece Muñoz Electronically Signed By:RICKI YUEN
[2023-03-03 00:17] LABS: Glucose, Whole Blood 111 mg/dL (60-115)
--- NOTE | 2023-03-03 01:32 | PC.NURSE ---
Addendum entered by Cassidy Tavares RN 03/03/23 06:24: At around 615 pt converted from sinus to AFIB. Pt is asymptomatic with heart rate in 115-130 B/P 107/77 and 95% oxygen saturation. MD was notified Addendum entered by Cassidy Tavares RN 03/03/23 01:54: MD Said to hold all fluids and repeat chest XRAY was ordered. Original Note: Pt was given fluids as a result of low B/P. At around 1:00 pt developed coarse crackles and slightly labored breathing. Md notified
[2023-03-03] MEDS: Ampicillin Sodium/Sulbactam Na 3 GM in 0.9 % Sodium Chloride 100 ML IV ×3 (03:08→21:14)
[2023-03-03] MEDS: Potassium Phosphate/NS 15 MMOL/250 ML PLAST..BAG 62.5 MMOL IV (03:09)
[2023-03-03 06:15] LABS: Glucose, Whole Blood 122 mg/dL (60-115)
[2023-03-03 07:08] LABS: Hematocrit 28.4 % (42.0-52.0); Hemoglobin 8.8 g/dl (14.0-18.0); Mean Corpuscular Hemoglobin 27.2 pg (27.0-33.0); Mean Corpuscular Volume 87.9 fL (80.0-98.0); Mean Platelet Volume 10.3 fL (9.4-12.4); Platelet Count 280 X10*3/uL (160-400); Red Blood Count 3.23 X10*6/uL (4.60-5.80); Red Cell Distribution Width 16.2 % (11.0-16.0); White Blood Count 16.3 X10*3/uL (4.8-10.8)
[2023-03-03 07:27] LABS: Alanine Aminotransferase 11 U/L (0-40); Albumin Level 3.6 g/dL (3.5-5.0); Alkaline Phosphatase 60 U/L (39-117); Aspartate Amino Transferase 24 U/L (5-37); Bilirubin Direct 0.4 mg/dL (0.0-0.5); Bilirubin Total 0.9 mg/dL (0.0-1.0); Creatinine Clr Calc Pharmacy 108.8; Estimated Glomerular Filt Rate > 60
[2023-03-03] MEDS: Metoprolol Tartrate 5 MG/5 ML VIAL IVPUSH (07:34)
[2023-03-03 07:36] LABS: Blood Urea Nitrogen 10 mg/dL (9-16); Calcium 8.4 mg/dL (8.4-10.2); Creatinine Clr Calc Pharmacy 110.3; Estimated Glomerular Filt Rate > 60; Glucose Random 125 mg/dL (60-115)
[2023-03-03] MEDS: 0.9 % Sodium Chloride Flush 3 ML SYRINGE IVFLUSH ×2 (07:38→17:27)
[2023-03-03] MEDS: Dronedarone HCl 400 MG TABLET PO (07:38)
[2023-03-03] MEDS: Apixaban 5 MG TABLET PO (07:39)
[2023-03-03] MEDS: Levothyroxine Sodium 75 MCG TABLET PO (07:39)
[2023-03-03 07:56] LABS: Anion Gap 22 (12-20); Carbon Dioxide 10 mmol/L (22-29); Chloride 120 mmol/L (96-108); Potassium 3.6 mmol/L (3.3-5.1); Sodium 148 mmol/L (135-145)
[2023-03-03 08:18] LABS: ABG Base Excess -15.1 mmol/L; ABG HCO3 8 mmol/L (22-26); ABG pCO2 16 mmHg (32-45); ABG pH 7.31 (7.35-7.45); ABG pO2 92 mmHg (83-108)
[2023-03-03 08:35] LABS: VBG Base Excess -15.2 mmol/L; VBG HCO3 8 mmol/L (22-26); VBG pCO2 14 mmHg; VBG pH 7.34 (7.32-7.43); VBG pO2 165 mmHg
[2023-03-03 08:36] LABS: Venous Blood Gas Refer to POC result
[2023-03-03 08:45] LABS: Lactic Acid 1.7 mmol/L (0.5-2.0)
[2023-03-03] MEDS: Sodium Bicarbonate 8.4% 50 MEQ in Dextrose 5 % 950 ML 100 MEQ IV (09:47)
[2023-03-03 10:39] LABS: Anion Gap 23 (12-20); Blood Urea Nitrogen 12 mg/dL (9-16); Calcium 8.4 mg/dL (8.4-10.2); Chloride 121 mmol/L (96-108); Creatinine Clr Calc Pharmacy 95.8; Estimated Glomerular Filt Rate > 60; Glucose Random 156 mg/dL (60-115); Potassium 3.5 mmol/L (3.3-5.1); Sodium 149 mmol/L (135-145)
[2023-03-03 10:45] LABS: Carbon Dioxide 9 mmol/L (22-29)
--- NOTE | 2023-03-03 11:02 | P.PNCA_ITS ---
Subjective Subjective Date of Service: 03/03/23 Principal diagnosis: Atrial fibrillation Interval history: Patient with persistent tachycardia which appears to more atrial tachycardia/flutter. Patient denies any cardiac symptoms. Denies any palpitations or prolonged irregular heartbeat. Denies any lightheadedness, syncope denies shortness of breath. Yesterday will start on Multaq therapy. Review of Systems Constitutional: Reports no additional constitutional complaints Cardiovascular: Reports no additional cardiovascular complaints Physical Exam Vital Signs: Last Vital Signs Temp 98.6 F 03/03/23 07:44 Pulse 132 H 03/03/23 07:44 Resp 24 H 03/03/23 07:44 BP 134/81 03/03/23 07:44 Pulse Ox 96 03/03/23 07:44 O2 Del Method Room Air 03/03/23 07:44 O2 Flow Rate 2 02/23/23 15:21 Oxygen Flow Rate 2 02/23/23 05:00 BMI result Body Mass Index 24.7 Objective Labs and Meds 03/03/23 06:55 03/03/23 09:55 Lab results: Laboratory Results - last 24 hr 03/02/23 03/02/23 03/02/23 11:03 14:58 15:55 WBC RBC Hgb Hct MCV MCH MCHC RDW Plt Count MPV Absolute Nucleated RBC Nucleated RBC % (auto) O2 Saturation ABG pH at Pt Temp ABG pCO2 at Pt Temp ABG pO2 at Pt Temp ABG HCO3 ABG Base Excess (Actual) VBG pH VBG pCO2 VBG pO2 VBG HCO3 VBG O2 Saturation VBG Base Excess Sodium Potassium Chloride Carbon Dioxide Anion Gap BUN Creatinine 0.63 Estim Creat Clear Calc 127.8 Estimated GFR > 60 POC Glucose 136 H 132 H Random Glucose Lactic Acid Calcium Phosphorus Total Bilirubin Direct Bilirubin AST ALT Alkaline Phosphatase Total Protein Albumin 03/02/23 03/02/23 03/03/23 16:54 16:55 00:13 WBC RBC Hgb Hct MCV MCH MCHC RDW Plt Count MPV Absolute Nucleated RBC Nucleated RBC % (auto) O2 Saturation ABG pH at Pt Temp ABG pCO2 at Pt Temp ABG pO2 at Pt Temp ABG HCO3 ABG Base Excess (Actual) VBG pH 7.42 VBG pCO2 22 VBG pO2 107 VBG HCO3 15 L VBG O2 Saturation 99.0 VBG Base Excess -7.7 Sodium 147 H Potassium 3.3 Chloride 121 H Carbon Dioxide 17 L Anion Gap 12 BUN 14 Creatinine 0.63 Estim Creat Clear Calc 127.8 Estimated GFR > 60 POC Glucose 111 Random Glucose 143 H Lactic Acid Calcium 7.7 L D Phosphorus 1.7 L Total Bilirubin 0.7 Direct Bilirubin 0.4 AST 18 ALT 13 Alkaline Phosphatase 66 Total Protein 5.3 L Albumin 2.7 L 03/03/23 03/03/23 03/03/23 06:11 06:55 06:55 WBC 16.3 H RBC 3.23 L Hgb 8.8 L Hct 28.4 L MCV 87.9 MCH 27.2 MCHC 31.0 RDW 16.2 H Plt Count 280 MPV 10.3 Absolute Nucleated RBC 0.000 Nucleated RBC % (auto) 0.0 O2 Saturation ABG pH at Pt Temp ABG pCO2 at Pt Temp ABG pO2 at Pt Temp ABG HCO3 ABG Base Excess (Actual) VBG pH VBG pCO2 VBG pO2 VBG HCO3 VBG O2 Saturation VBG Base Excess Sodium 148 H Potassium 3.6 Chloride 120 H Carbon Dioxide 10 L* D Anion Gap 22 H BUN 10 Creatinine 0.73 Estim Creat Clear Calc 110.3 Estimated GFR > 60 POC Glucose 122 H Random Glucose 125 H Lactic Acid Calcium 8.4 D Phosphorus Total Bilirubin Direct Bilirubin AST ALT Alkaline Phosphatase Total Protein Albumin 03/03/23 03/03/23 03/03/23 06:55 08:13 08:24 WBC RBC Hgb Hct MCV MCH MCHC RDW Plt Count MPV Absolute Nucleated RBC Nucleated RBC % (auto) O2 Saturation 97.0 ABG pH at Pt Temp 7.31 L ABG pCO2 at Pt Temp 16 L* ABG pO2 at Pt Temp 92 ABG HCO3 8 L ABG Base Excess (Actual) -15.1 VBG pH VBG pCO2 VBG pO2 VBG HCO3 VBG O2 Saturation VBG Base Excess Sodium Potassium Chloride Carbon Dioxide Anion Gap BUN Creatinine 0.74 Estim Creat Clear Calc 108.8 Estimated GFR > 60 POC Glucose Random Glucose Lactic Acid 1.7 Calcium Phosphorus Total Bilirubin 0.9 Direct Bilirubin 0.4 AST 24 ALT 11 Alkaline Phosphatase 60 Total Protein 6.0 L Albumin 3.6 03/03/23 03/03/23 08:28 09:55 WBC RBC Hgb Hct MCV MCH MCHC RDW Plt Count MPV Absolute Nucleated RBC Nucleated RBC % (auto) O2 Saturation ABG pH at Pt Temp ABG pCO2 at Pt Temp ABG pO2 at Pt Temp ABG HCO3 ABG Base Excess (Actual) VBG pH 7.34 VBG pCO2 14 VBG pO2 165 VBG HCO3 8 L VBG O2 Saturation 99.0 VBG Base Excess -15.2 Sodium 149 H Potassium 3.5 Chloride 121 H Carbon Dioxide 9 L* Anion Gap 23 H BUN 12 Creatinine 0.84 Estim Creat Clear Calc 95.8 Estimated GFR > 60 POC Glucose Random Glucose 156 H Lactic Acid Calcium 8.4 Phosphorus Total Bilirubin Direct Bilirubin AST ALT Alkaline Phosphatase Total Protein Albumin Imaging Radiologist's impression: Impressions Chest X-Ray 03/03/23 02:00 IMPRESSION: Increased patchy opacities of the right mid to lower lung could be infectious or inflammatory. Progress Note: A&P Assessment and plan (1) Afib: Status: Acute Assessment and Plan: Atrial fibrillation most likely with prior history of atrial fibrillation, triggered by his acute medical illness at this point time. Difficult control. Currently in atrial tachycardia/flutter. Please perform 12 lead EKG. Not responding to Multaq therapy. Would switch him to IV amiodarone loading and drip for control of his atrial arrhythmias. This is as per the amiodarone protocol in the system. Continue full oral anticoagulation with Eliquis. Co ntinue supportive care and treatment of his underlying medical/surgical illness. Continue replace electrolytes as needed. (2) CAD (coronary artery disease): Status: Acute Assessment and Plan: Prior CAD with no current symptoms of angina or evidence of acute myocardial ischemia. Continue aggressive rate control/rhythm control as above. Continue full oral anticoagulation Eliquis. Continue statin therapy. Continue supportive care. Will continue to follow with you. Time Spent With Patient Time: Total time managing care of this patient today ____ minutes. Progress Note: Quality Stroke Does the patient have a stroke diagnosis?: No Procedures Date of Service Date of Service: 03/03/23
--- NOTE | 2023-03-03 11:05 | PC.NURSE ---
stoma noted to be leaking feces from right side approx 3 mm from abdominal opening, appliance replaced abd pad replaced
[2023-03-03 11:16] LABS: Glucose, Whole Blood 176 mg/dL (60-115)
[2023-03-03] MEDS: vancomycin HCL 1,250 MG in 0.9 % Sodium Chloride 250 ML 166.67 MG IV (11:46)
--- NOTE | 2023-03-03 12:53 | PM.CNNEP ---
History of Present Illness Reason for Consult Consult date: 03/03/23 Chief Complaint Chief complaint: Paroxysmal atrial fibrillation. History of Present Illness Narrative: 62-year-old? gentleman with underlying CAD status post CABG, AFib, COPD, diabetes? mellitus, hypothyroidism, schizophrenia from [facility] admitted on 02/20/2023 with abdominal distention and hypoxemia secondary to sigmoid? volvulus . He was initially managed conservatively, now? POD #7 status post sigmoidectomy with colostomy being monitored . He developed worsening lethargy and hypotension as well as metabolic acidosis.He was aggressively resuscitated but continued to have metabolic acidosis with normal lactate. Nephrology has been consulted to assist in his clinical care during his current hospital stay. Review of Systems Review of Systems Yes all other systems are reviewed and are negative PMFSH Past Medical History Medical History (Updated 03/03/23 @ 12:56 by Desean Saini MD) Altered mental status Amblyopia, left eye Anemia Atherosclerotic heart disease of [place] coronary artery without angina pectoris Boutonniere deformity of finger Cognitive impairment COPD (chronic obstructive pulmonary disease) COVID-19 Dementia Drug induced subacute dyskinesia Dysphagia Encephalopathy Essential (primary) hypertension Exotropia, alternating, with A pattern Hyperlipidemia Hypermetropia of both eyes Hypothyroidism Palsy (spasm) of conjugate gaze Paranoid schizophrenia Personal history of transient ischemic attack (TIA), and cerebral infarction without residual deficits Ptosis of right eyelid Type 2 diabetes mellitus Surgical History Surgical History Presence of aortocoronary bypass graft Social History Social History Household Members: Unknown / Unable to assess Household Members Other:: [facility] Housing: Other Housing Other:: [facility] Do you presently have visiting nurse or other home services: No Unable to assess alcohol history related to: Unknown Patient Tobacco Use Status: Former Tobacco user Tobacco use type: Cigarette Years Smoked: SURAJ Use of substances other than those prescribed or required for medical reasons: No Currently Displaying Signs/Symptoms of Drug Intoxication Withdrawal: No Are you DNR?: No Advance Directives: Yes Advance Directives on File: Yes Advance Directives Date on File: 12/14/21 Do you have thoughts of harming others: None Do you have a plan to hurt others: No Plan service: No Current occupational status: disabled Meds Allergies Allergy/AdvReac Type Severity Reaction Status Date / Time No Known Allergies Allergy Unverified 04/05/20 19:36 [No Known Allergies*] Active Medications: Current Medications Acetaminophen (Acetaminophen 325 Mg Tablet) 650 mg PO Q8H PRN PRN Reason: fever Last Admin: 03/02/23 05:42 Dose: 650 mg Albuterol/Ipratropium (Albuterol/Iprat 2.5/0.5mg 3 Ml Ampul.Neb) 3 ml INHALE RQ4H PRN PRN Reason: Shortness of Breath/Wheezing Last Admin: 03/02/23 00:44 Dose: 3 ml Apixaban (Apixaban 5 Mg Tablet) 5 mg PO BID COLIN Last Admin: 03/03/23 07:39 Dose: 5 mg Clozapine (Clozapine 100 Mg Tablet) 100 mg PO BEDTIME [facility] Dextrose (Dextrose 50 % 25 Gm/50 Ml Syringe) 25 gm IVPUSH Q15M PRN; Protocol PRN Reason: per Hypoglycemia Standing Ord. Last Admin: 02/21/23 07:53 Dose: 25 gm Glucose (Glucose Gel 15 Gm Gel..Gram.) 15 gm PO Q15M PRN; Protocol PRN Reason: per Hypoglycemia Standing Ord. Ampicillin Sodium/Sulbactam (Sodium 3 gm/ Sodium Chloride) 100 mls @ 200 mls/hr IV Q8H [facility] Last Admin: 03/03/23 11:50 Dose: 200 mls/hr Caspofungin 50 mg/ Sodium (Chloride) 250 mls @ 250 mls/hr IV Q24H [facility] Vancomycin HCl 1,250 mg/ (Sodium Chloride) 250 mls @ 166.667 mls/hr IV Q12H [facility] Last Admin: 03/03/23 11:46 Dose: 166.67 mls/hr Amiodarone HCl 900 mg/ Sodium (Chloride) 518 mls @ 34.533 mls/hr IVCONT .Q15H1M [facility]; Protocol Sodium Bicarbonate 100 meq/ (Dextrose) 1,000 mls @ 100 mls/hr IV .Q10H [facility] Insulin Human Lispro (Insulin Lispro 100 Unit/Ml 3 Ml Vial) 0 unit SUBCUT Q6H [facility]; Protocol Last Admin: 03/03/23 06:11 Dose: Not Given Levothyroxine Sodium (Levothyroxine Sodium 75 Mcg Tablet) 75 mcg PO DAILY@0600 [facility] Last Admin: 03/03/23 07:39 Dose: 75 mcg Pharmacy Consult (Consult Rx Perform Med Rec) 1 each MISCELLANE ONCE PRN PRN Reason: Consult order Pharmacy Consult (Consult Rx Vancomycin Dosing) 1 each MISCELLANE DAILY PRN PRN Reason: Consult order Sodium Chloride (0.9 % Sodium Chloride Flush 3 Ml Syringe) 3 ml IVFLUSH QSHIFT [facility] Last Admin: 03/03/23 07:38 Dose: 3 ml Home Medications Medication Instructions Recorded Confirmed Last Taken Type aspirin 81 mg chewable tablet 81 mg PO DAILY 12/13/21 02/20/23 12/12/21 History atorvastatin 80 mg tablet 1 tab PO BEDTIME 12/13/21 02/20/23 12/12/21 History canagliflozin 100 mg tablet 1 tab PO DAILY 12/13/21 02/20/23 12/12/21 History (Invokana) clozapine 200 mg tablet 1 tab PO BEDTIME 12/13/21 02/20/23 12/12/21 History ferrous sulfate 325 mg (65 mg 325 mg PO DAILY@1700 12/13/21 02/20/23 12/12/21 History iron) tablet insulin glargine 100 unit/mL (3 20 unit subcut BEDTIME 12/13/21 02/20/23 12/12/21 History mL) subcutaneous pen (Lantus Solostar U-100 Insulin) lactulose 10 gram/15 mL oral 30 ml PO DAILY 12/13/21 02/20/23 12/12/21 History solution levothyroxine 75 mcg tablet 1 tab PO DAILY@0600 12/13/21 02/20/23 12/12/21 History linagliptin 5 mg tablet (Tradjenta) 1 tab PO DAILY 12/13/21 02/20/23 12/12/21 History omega 2-qvi-pzc-fish oil 1,000 mg 1 cap PO BID 12/13/21 02/20/23 12/12/21 History (120 mg-180 mg) capsule (Fish Oil) pantoprazole 40 mg tablet,delayed 1 tab PO BID@0630,1630 12/13/21 02/20/23 12/12/21 History release metformin 500 mg tablet 1,000 mg PO BID 12/27/22 02/20/23 Unknown History nicotine 7 mg/24 hr daily 1 patch transdermal Q24H PRN 12/27/22 02/20/23 Unknown History transdermal patch Smoking Cessation nystatin 100,000 unit/gram topical 1 appl topical BID 12/27/22 02/20/23 Unknown History powder sennosides 8.6 mg tablet (senna) 8.6 mg PO DAILY PRN Constipation 12/27/22 02/20/23 Unknown History metoprolol tartrate 25 mg tablet 12.5 mg PO BID 02/20/23 02/20/23 Unknown History zinc oxide 1 appl topical QSHIFT 02/20/23 02/20/23 Unknown History Physical Exam Vital Signs: Last Vital Signs Temp 97.6 F 03/03/23 11:19 Pulse 112 H 03/03/23 11:19 Resp 20 03/03/23 11:19 BP 102/59 L 03/03/23 11:19 Pulse Ox 96 03/03/23 11:19 O2 Del Method Room Air 03/03/23 11:19 O2 Flow Rate 2 02/23/23 15:21 Oxygen Flow Rate 2 02/23/23 05:00 BMI result Body Mass Index 24.7 Const General: no acute distress Neck Neck: Yes no JVD Resp Auscultation: diminished lung sounds Cardio Rate: regular rate GI Palpation (GI): Soft to palpation Neuro General: moves all extremities Results Lab Results 03/03/23 06:55 03/03/23 09:55 Lab results: Chemistry 03/01/23 03/02/23 03/02/23 06:39 14:58 16:54 Sodium 144 147 H Potassium 3.9 3.3 Carbon Dioxide 19 L 17 L BUN 11 14 Creatinine 0.74 0.63 0.63 Calcium 8.6 D 7.7 L D Phosphorus 1.7 L 03/03/23 03/03/23 03/03/23 06:55 06:55 09:55 Sodium 148 H 149 H Potassium 3.6 3.5 Carbon Dioxide 10 L* D 9 L* BUN 10 12 Creatinine 0.73 0.74 0.84 Calcium 8.4 D 8.4 Phosphorus Hematology 03/01/23 03/03/23 06:39 06:55 WBC 13.4 H 16.3 H Hgb 10.9 L 8.8 L Plt Count 226 280 Assessment and Plan (1) Metabolic acidosis: Status: Acute Plan Normal renal function ABG reviewed; Lactate normal Beta hydroxy byutrate levels ordered No reason to suspect toxic ingestion Likely has excess HCO3 loss from stoma ICU Colleagues seen him Started IV Bicarbonate; Shall closely F/U Procedures Date of Service Date of Service: 03/03/23
[2023-03-03] MEDS: Amiodarone/Dextrose 150 MG/100 ML PLAST..BAG 600 MG IV (13:13)
[2023-03-03] MEDS: Sodium Bicarbonate 8.4% 100 MEQ in Dextrose 5 % 900 ML IV ×2 (13:14→22:26)
[2023-03-03] MEDS: Amiodarone HCL 900 MG in 0.9 % Sodium Chloride 500 ML 34.53 MG IVCONT (13:22)
[2023-03-03 13:34] LABS: Beta-Hydroxybutyrate 5.69 mmol/L (0.02-0.27)
--- NOTE | 2023-03-03 14:28 | P.PNIM_ITS ---
Subjective Subjective Date of Service: 03/03/23 Interval History: Seen and evaluated sleepy and lethargic, no more fever Metabolic acidosis Heart rate still going up to 130-150s NPO colostomy functioning pain under fair control Review of Systems Review of Systems: Yes all other systems are reviewed and are negative Physical Exam Vital Signs: Vital Signs: Last Vital Signs Temp 97.6 F 03/03/23 11:19 Pulse 112 H 03/03/23 11:19 Resp 20 03/03/23 11:19 BP 102/59 L 03/03/23 11:19 Pulse Ox 96 03/03/23 11:19 O2 Del Method Room Air 03/03/23 11:19 O2 Flow Rate 2 02/23/23 15:21 Oxygen Flow Rate 2 02/23/23 05:00 BMI result Body Mass Index 24.7 Const: Other: Constitutional : Altered, Awakes with stimulation, not in distress Neck : Normal inspection, Supple Cardiovascular : irregular irregular, tachycardia, no JVP, no lower extremity edema Respiratory : good bilateral air entry, basal crackles Gastrointestinal: soft, lax, fair bowel sounds, Non tender, Ostomy place clean with water dark secretion Skin : Warm, Dry Neurological : very difficult to arouse, GCS of 10 , No focal deficit Objective Data Active Medications Acetaminophen (Acetaminophen 325 Mg Tablet) 650 mg PO Q8H PRN PRN Reason: fever Last Admin: 03/02/23 05:42 Dose: 650 mg Documented By: SARAH Albuterol/Ipratropium (Albuterol/Iprat 2.5/0.5mg 3 Ml Ampul.Neb) 3 ml INHALE RQ4H PRN PRN Reason: Shortness of Breath/Wheezing Last Admin: 03/02/23 00:44 Dose: 3 ml Documented By: ADONAY Apixaban (Apixaban 5 Mg Tablet) 5 mg PO BID COLIN Last Admin: 03/03/23 07:39 Dose: 5 mg Documented By: GERTRUDIS Clozapine (Clozapine 100 Mg Tablet) 100 mg PO BEDTIME [facility] Dextrose (Dextrose 50 % 25 Gm/50 Ml Syringe) 25 gm IVPUSH Q15M PRN; Protocol PRN Reason: per Hypoglycemia Standing Ord. Last Admin: 02/21/23 07:53 Dose: 25 gm Documented By: PORTIA Comments: bg 67 Glucose (Glucose Gel 15 Gm Gel..Gram.) 15 gm PO Q15M PRN; Protocol PRN Reason: per Hypoglycemia Standing Ord. Ampicillin Sodium/Sulbactam (Sodium 3 gm/ Sodium Chloride) 100 mls @ 200 mls/hr IV Q8H [facility] Last Infusion: 03/03/23 13:05 Dose: 0 mls/hr Documented By: JOSE Caspofungin 50 mg/ Sodium (Chloride) 250 mls @ 250 mls/hr IV Q24H [facility] Vancomycin HCl 1,250 mg/ (Sodium Chloride) 250 mls @ 166.667 mls/hr IV Q12H [facility] Last Infusion: 03/03/23 13:22 Dose: 0 mls/hr Documented By: JOSE Sodium Bicarbonate 100 meq/ (Dextrose) 1,000 mls @ 100 mls/hr IV .Q10H [facility] Last Admin: 03/03/23 13:14 Dose: 100 mls/hr Documented By: JOSE Amiodarone HCl 900 mg/ Sodium (Chloride) 518 mls @ 34.533 mls/hr IVCONT .Q15H1M [facility]; Protocol Last Admin: 03/03/23 13:22 Dose: 1 mg/min, 34.53 mls/hr Documented By: JOSE Insulin Human Lispro (Insulin Lispro 100 Unit/Ml 3 Ml Vial) 0 unit SUBCUT Q6H S ; Protocol Last Admin: 03/03/23 13:08 Dose: Not Given Documented By: JOSE Non-Admin Reason: NPO Levothyroxine Sodium (Levothyroxine Sodium 75 Mcg Tablet) 75 mcg PO DAILY@0600 [facility] Last Admin: 03/03/23 07:39 Dose: 75 mcg Documented By: GERTRUDIS Pharmacy Consult (Consult Rx Perform Med Rec) 1 each MISCELLANE ONCE PRN PRN Reason: Consult order Pharmacy Consult (Consult Rx Vancomycin Dosing) 1 each MISCELLANE DAILY PRN PRN Reason: Consult order Sodium Chloride (0.9 % Sodium Chloride Flush 3 Ml Syringe) 3 ml IVFLUSH QSHIFT [facility] Last Admin: 03/03/23 07:38 Dose: 3 ml Documented By: GERTRUDIS Labs 03/03/23 06:55 03/03/23 09:55 Labs: Laboratory Results - last 24 hr 03/02/23 03/02/23 03/02/23 14:58 15:55 16:54 MCV MCH MCHC RDW Plt Count MPV Absolute Nucleated RBC Nucleated RBC % (auto) O2 Saturation ABG pH at Pt Temp ABG pCO2 at Pt Temp ABG pO2 at Pt Temp ABG HCO3 ABG Base Excess (Actual) VBG pH VBG pCO2 VBG pO2 VBG HCO3 VBG O2 Saturation VBG Base Excess Anion Gap 12 Estim Creat Clear Calc 127.8 127.8 Estimated GFR > 60 > 60 POC Glucose 132 H Random Glucose 143 H Lactic Acid Calcium 7.7 L D Phosphorus 1.7 L Total Bilirubin 0.7 Direct Bilirubin 0.4 AST 18 ALT 13 Alkaline Phosphatase 66 Total Protein 5.3 L Albumin 2.7 L Beta-Hydroxybutyrate 03/02/23 03/03/23 03/03/23 16:55 00:13 06:11 MCV MCH MCHC RDW Plt Count MPV Absolute Nucleated RBC Nucleated RBC % (auto) O2 Saturation ABG pH at Pt Temp ABG pCO2 at Pt Temp ABG pO2 at Pt Temp ABG HCO3 ABG Base Excess (Actual) VBG pH 7.42 VBG pCO2 22 VBG pO2 107 VBG HCO3 15 L VBG O2 Saturation 99.0 VBG Base Excess -7.7 Anion Gap Estim Creat Clear Calc Estimated GFR POC Glucose 111 122 H Random Glucose Lactic Acid Calcium Phosphorus Total Bilirubin Direct Bilirubin AST ALT Alkaline Phosphatase Total Protein Albumin Beta-Hydroxybutyrate 03/03/23 03/03/23 03/03/23 06:55 06:55 06:55 MCV 87.9 MCH 27.2 MCHC 31.0 RDW 16.2 H Plt Count 280 MPV 10.3 Absolute Nucleated RBC 0.000 Nucleated RBC % (auto) 0.0 O2 Saturation ABG pH at Pt Temp ABG pCO2 at Pt Temp ABG pO2 at Pt Temp ABG HCO3 ABG Base Excess (Actual) VBG pH VBG pCO2 VBG pO2 VBG HCO3 VBG O2 Saturation VBG Base Excess Anion Gap 22 H Estim Creat Clear Calc 110.3 108.8 Estimated GFR > 60 > 60 POC Glucose Random Glucose 125 H Lactic Acid Calcium 8.4 D Phosphorus Total Bilirubin 0.9 Direct Bilirubin 0.4 AST 24 ALT 11 Alkaline Phosphatase 60 Total Protein 6.0 L Albumin 3.6 Beta-Hydroxybutyrate 03/03/23 03/03/23 03/03/23 08:13 08:24 08:28 MCV MCH MCHC RDW Plt Count MPV Absolute Nucleated RBC Nucleated RBC % (auto) O2 Saturation 97.0 ABG pH at Pt Temp 7.31 L ABG pCO2 at Pt Temp 16 L* ABG pO2 at Pt Temp 92 ABG HCO3 8 L ABG Base Excess (Actual) -15.1 VBG pH 7.34 VBG pCO2 14 VBG pO2 165 VBG HCO3 8 L VBG O2 Saturation 99.0 VBG Base Excess -15.2 Anion Gap Estim Creat Clear Calc Estimated GFR POC Glucose Random Glucose Lactic Acid 1.7 Calcium Phosphorus Total Bilirubin Direct Bilirubin AST ALT Alkaline Phosphatase Total Protein Albumin Beta-Hydroxybutyrate 03/03/23 03/03/23 03/03/23 09:55 11:05 13:11 MCV MCH MCHC RDW Plt Count MPV Absolute Nucleated RBC Nucleated RBC % (auto) O2 Saturation ABG pH at Pt Temp ABG pCO2 at Pt Temp ABG pO2 at Pt Temp ABG HCO3 ABG Base Excess (Actual) VBG pH VBG pCO2 VBG pO2 VBG HCO3 VBG O2 Saturation VBG Base Excess Anion Gap 23 H Estim Creat Clear Calc 95.8 Estimated GFR > 60 POC Glucose 176 H Random Glucose 156 H Lactic Acid Calcium 8.4 Phosphorus Total Bilirubin Direct Bilirubin AST ALT Alkaline Phosphatase Total Protein Albumin Beta-Hydroxybutyrate 5.69 H Microbiology Microbiology Results: Microbiology 03/02/23 08:16 Blood Culture - Preliminary Blood - Venous No growth after 24 hours. 03/02/23 08:16 Blood Culture - Preliminary Blood - Venous No growth after 24 hours. Assessment and Plan (1) Metabolic acidosis: Status: Acute (2) Adverse effect of clozapine: Status: Acute (3) Intravascular volume depletion: Status: Acute (4) Hypoalbuminemia: Status: Acute (5) Hypophosphatemia: Status: Acute (6) Pneumonia: Status: Acute (7) Severe sepsis: Status: Acute (8) Paroxysmal atrial fibrillation: Status: Acute (9) Swallowing problem: Status: Acute (10) S/P colectomy: Status: Acute (11) Volvulus of sigmoid colon: Status: Acute Plan 62M PMH CAD s/p CABG, paroxysmal afib, COPD, DM2, paranoid schizophrenia, hypothyroid, from [facility] presented with abdominal pain, distension, hypoxia Metabolic acidosis w Anion gap Likely 2/2 Ostomy output, dehydration, fasting LA negative , high Beta-hydroxybutyrate Start [id number] drip Nephrology consult Follow BMP check CT abdomen Acute hypernatremia 2/2 dehydration D5W for correction Nephro following BMP paroxysmal afib with rvr better controlled PO Metoprolol Start Amidarone drip restart Eliquis Cardiology input appreciated Sepsis 2/2 Pneumonia Seen on CXR Blood cx pending Start broad spectrum of Vancomycin and Unasyn with addition of Caspofungen Get ID eval Toxic metabolic encephalopathy could be 2/2 infection, medications, hypernatremia Treat with Abx Hold Clozapine at bedtime recurrent reorientation NPO now, INSOLE FILLER following acute sigmoid volvulus POD #8 post s/p exploratory laparotomy, detorsion of sigmoid volvulus, sigmoid resection, end colostomy, Hafsa's pouch. Ostomy functioning surgery following severe sepsis and acute hypoxic respiratory failure and acute metabolic encephalopathy due to aspiration pneumonia Early during admission, Hypoxia resolved Finished 10 days of Zosyn Swallowing problem INSOLE FILLER eval, NDD1 w nectar thick liquids hypernatremia resolved DC IVF Hypokalemia Resolved, give replacement and follow BMP DM insulin CAD asa, statin hypothryoid synthroid paranoid schizophrenia clozaril dvt prophylaxis Eliquis full code reason for continued hospitalization: awaiting return of gi function and tolerance to diet Time Spent With Patient Time: Total time managing care of this patient today ____ minutes. Quality Stroke Does the patient have a stroke diagnosis?: No VTE Prior VTE?: No VTE Risk Level:: Medical - moderate - high VTE Device Contraindication: Treatment Not Indicated VTE Drug Contraindication: N/A - Med Ordered
[2023-03-03] MEDS: iohexoL 350 MG/ML 100 ML INFUS..BTL IV (16:22)
[2023-03-03 17:14] LABS: Anion Gap 20 (12-20); Blood Urea Nitrogen 12 mg/dL (9-16); Calcium 8.5 mg/dL (8.4-10.2); Carbon Dioxide 11 mmol/L (22-29); Chloride 121 mmol/L (96-108); Creatinine Clr Calc Pharmacy 91.5; Estimated Glomerular Filt Rate > 60; Glucose Random 180 mg/dL (60-115); Potassium 3.4 mmol/L (3.3-5.1); Sodium 149 mmol/L (135-145)
[2023-03-03] MEDS: Lactated Ringers 1,000 ML 999 ML IV (17:27)
[2023-03-03 17:45] LABS: Glucose, Whole Blood 149 mg/dL (60-115)
[2023-03-03] MEDS: Caspofungin Acetate 50 MG in 0.9 % Sodium Chloride 250 ML 250 MG IV (18:41)
[2023-03-03 21:58] LABS: Anion Gap 16 (12-20); Blood Urea Nitrogen 10 mg/dL (9-16); Calcium 8.6 mg/dL (8.4-10.2); Carbon Dioxide 15 mmol/L (22-29); Chloride 120 mmol/L (96-108); Estimated Glomerular Filt Rate > 60; Glucose Random 164 mg/dL (60-115); Sodium 148 mmol/L (135-145)
--- NOTE | 2023-03-03 22:17 | HE.PHANOTE ---
VANCO DOSE ADJUSTMENT BASED ON SCR AND TROUGH OF 11 TROUGH OVERED FOR 03/04 @ 2100. DOSE CONTINUED AT 1250 Q 12
[2023-03-03 23:53] LABS: Glucose, Whole Blood 159 mg/dL (60-115)
[2023-03-04] VITALS: BP 107/56; PULSE 97; RESP 20; TEMP 36.1; O2SAT 95
[2023-03-04] MEDS: vancomycin HCL 1,250 MG in 0.9 % Sodium Chloride 250 ML 166.7 MG IV ×2 (00:10→11:10)
[2023-03-04] MEDS: Ampicillin Sodium/Sulbactam Na 3 GM in 0.9 % Sodium Chloride 100 ML IV ×3 (02:54→20:05)
[2023-03-04] MEDS: 0.9 % Sodium Chloride Flush 3 ML SYRINGE IVFLUSH ×3 (02:55→17:54)
[2023-03-04 04:00] VITALS: BP 112/63; PULSE 96; RESP 20; TEMP 36.1; O2SAT 94
[2023-03-04] MEDS: Amiodarone HCL 900 MG in 0.9 % Sodium Chloride 500 ML 34.53 MG IVCONT (05:28)
[2023-03-04] MEDS: Sodium Bicarbonate 8.4% 100 MEQ in Dextrose 5 % 900 ML IV (05:29)
[2023-03-04 06:01] LABS: Glucose, Whole Blood 172 mg/dL (60-115)
--- NOTE | 2023-03-04 06:04 | PC.NURSE ---
Pt attempting to pull out IV lines and NG tube, 1: 1 sitter provided. NG tube placed on previous shift, placement verified. Per MD Friedman, do not connect NG tube to suction unless actively vomiting.
[2023-03-04 07:11] LABS: Hematocrit 27.6 % (42.0-52.0); Hemoglobin 8.8 g/dl (14.0-18.0); Mean Corpuscular HGB Conc 31.9 g/dl (31.0-36.0); Mean Corpuscular Hemoglobin 27.2 pg (27.0-33.0); Mean Corpuscular Volume 85.2 fL (80.0-98.0); Mean Platelet Volume 9.9 fL (9.4-12.4); Platelet Count 323 X10*3/uL (160-400); Red Blood Count 3.24 X10*6/uL (4.60-5.80); Red Cell Distribution Width 16.5 % (11.0-16.0); White Blood Count 12.7 X10*3/uL (4.8-10.8)
[2023-03-04 07:29] LABS: Alanine Aminotransferase 12 U/L (0-40); Albumin Level 3.1 g/dL (3.5-5.0); Alkaline Phosphatase 60 U/L (39-117); Aspartate Amino Transferase 23 U/L (5-37); Bilirubin Direct 0.4 mg/dL (0.0-0.5); Bilirubin Total 0.8 mg/dL (0.0-1.0); Creatinine Clr Calc Pharmacy 91.5; Estimated Glomerular Filt Rate > 60; Lactate Dehydrogenase 198 U/L (118-273); Magnesium 1.8 mg/dL (1.6-2.6); Phosphorus 1.5 mg/dL (2.7-4.5); Total Protein 5.5 g/dL (6.5-8.0)
[2023-03-04 07:32] LABS: Anion Gap 16 (12-20); Blood Urea Nitrogen 9 mg/dL (9-16); Calcium 8.6 mg/dL (8.4-10.2); Carbon Dioxide 19 mmol/L (22-29); Chloride 117 mmol/L (96-108); Creatinine Clr Calc Pharmacy 94.7; Estimated Glomerular Filt Rate > 60; Glucose Random 186 mg/dL (60-115); Potassium 2.8 mmol/L (3.3-5.1); Sodium 149 mmol/L (135-145)
[2023-03-04 07:40] LABS: Neut%MD 82.8 %; Neutrophils Absolute Auto 10.4 x10*3/uL (2.0-8.3)
[2023-03-04 07:50] VITALS: BP 110/60; PULSE 78; RESP 16; TEMP 36.2; O2SAT 96
[2023-03-04] MEDS: Dextrose 5 % 1,000 ML 150 ML IVCONT ×2 (09:50→16:45)
--- NOTE | 2023-03-04 09:57 | P.PNCA_ITS ---
Subjective Subjective Date of Service: 03/04/23 Principal diagnosis: Atrial fibrillation Interval history: patient is more somnolent today compared to yesterday. However seems like this might be toxic / metabolic encephalopathy. Patient is not eating well. Status post NG tube. On amiodarone drip and the rate is well controlled Review of Systems Review of Systems Yes Unobtainable due to mental status Physical Exam Vital Signs: Last Vital Signs Temp 97.2 F 03/04/23 07:50 Pulse 78 03/04/23 07:50 Resp 16 03/04/23 07:50 BP 110/60 03/04/23 07:50 Pulse Ox 96 03/04/23 07:50 O2 Del Method Room Air 03/04/23 07:50 O2 Flow Rate 2 02/23/23 15:21 Oxygen Flow Rate 2 02/23/23 05:00 BMI result Body Mass Index 24.7 Const General: ill appearing and lethargic Orientation/consciousness: lethargic Neck Neck: Yes trachea midline, Yes supple and Yes no JVD Cardio Jugular venous distension: no JVD Rhythm: abnormal rhythm irregularly irregular Heart sounds: S1 normal heart sound present and S2 normal heart sound present Extrem General: Yes no clubbing, cyanosis or edema Objective Labs and Meds 03/04/23 06:52 03/04/23 06:52 Lab results: Laboratory Results - last 24 hr 03/03/23 03/03/23 03/03/23 09:55 11:05 13:11 WBC RBC Hgb Hct MCV MCH MCHC RDW Plt Count MPV Absolute Neuts (auto) Absolute Nucleated RBC Nucleated RBC % (auto) Sodium 149 H Potassium 3.5 Chloride 121 H Carbon Dioxide 9 L* Anion Gap 23 H BUN 12 Creatinine 0.84 Estim Creat Clear Calc 95.8 Estimated GFR > 60 POC Glucose 176 H Random Glucose 156 H Calcium 8.4 Phosphorus Magnesium Total Bilirubin Direct Bilirubin AST ALT Alkaline Phosphatase Lactate Dehydrogenase Total Protein Albumin Beta-Hydroxybutyrate 5.69 H Vancomycin Trough 03/03/23 03/03/23 03/03/23 14:59 17:41 21:13 WBC RBC Hgb Hct MCV MCH MCHC RDW Plt Count MPV Absolute Neuts (auto) Absolute Nucleated RBC Nucleated RBC % (auto) Sodium 149 H Potassium 3.4 Chloride 121 H Carbon Dioxide 11 L Anion Gap 20 BUN 12 Creatinine 0.88 Estim Creat Clear Calc 91.5 Estimated GFR > 60 POC Glucose 149 H Random Glucose 180 H Calcium 8.5 Phosphorus Magnesium Total Bilirubin Direct Bilirubin AST ALT Alkaline Phosphatase Lactate Dehydrogenase Total Protein Albumin Beta-Hydroxybutyrate Vancomycin Trough 11.0 03/03/23 03/03/23 03/04/23 21:13 23:41 05:52 WBC RBC Hgb Hct MCV MCH MCHC RDW Plt Count MPV Absolute Neuts (auto) Absolute Nucleated RBC Nucleated RBC % (auto) Sodium 148 H Potassium 3.0 L Chloride 120 H Carbon Dioxide 15 L Anion Gap 16 BUN 10 Creatinine 0.83 Estim Creat Clear Calc 97.0 Estimated GFR > 60 POC Glucose 159 H 172 H Random Glucose 164 H Calcium 8.6 Phosphorus Magnesium Total Bilirubin Direct Bilirubin AST ALT Alkaline Phosphatase Lactate Dehydrogenase Total Protein Albumin Beta-Hydroxybutyrate Vancomycin Trough 03/04/23 03/04/23 03/04/23 06:52 06:52 06:52 WBC 12.7 H RBC 3.24 L Hgb 8.8 L Hct 27.6 L MCV 85.2 MCH 27.2 MCHC 31.9 RDW 16.5 H Plt Count 323 MPV 9.9 Absolute Neuts (auto) 10.4 H Absolute Nucleated RBC 0.000 Nucleated RBC % (auto) 0.0 Sodium 149 H Potassium 2.8 L Chloride 117 H Carbon Dioxide 19 L Anion Gap 16 BUN 9 Creatinine 0.85 0.88 Estim Creat Clear Calc 94.7 91.5 Estimated GFR > 60 > 60 POC Glucose Random Glucose 186 H Calcium 8.6 Phosphorus 1.5 L Magnesium 1.8 Total Bilirubin 0.8 Direct Bilirubin 0.4 AST 23 ALT 12 Alkaline Phosphatase 60 Lactate Dehydrogenase 198 Total Protein 5.5 L Albumin 3.1 L Beta-Hydroxybutyrate Vancomycin Trough Imaging Radiologist's impression: Impressions Abdomen/Pelvis CT 03/03/23 16:26 IMPRESSION: 1. Large amount of stool in the left transverse, splenic flexure and proximal descending colon extending into the left lower quadrant colostomy. This could be secondary to stasis. 2. Diffuse bladder wall thickening with air-fluid level. Question inflammatory process or instrumentation. 3. Bilateral lower lobe infiltrates, right greater than left, with bilateral small pleural effusions. 4. Heterogeneous soft tissue density along lower anterior abdominal wall likely at the site of hernia repair but below the mesh. This is suspicious for hematoma. 5. There is a small amount of free fluid in the pelvis and right paracolic gutter. . 6. Right lower lobe infiltrate with small bilateral pleural effusions. Fleischner guidelines were followed. Chest X-Ray 03/03/23 17:23 IMPRESSION: The tip of the NG tube is probably in the gastric antrum. Chest X-Ray 03/03/23 19:37 IMPRESSION: NG tube with tip in gastric body. Progress Note: A&P Assessment and plan (1) Afib: Status: Acute Assessment and Plan: persistent atrial fibrillation this middle-aged man with multiple comorbidities with acute illness related to sepsis as well as intra-abdominal process. Al tered mental status probably related to metabolic encephalopathy. Rate is adequately control at this point time. Continue IV amiodarone till p.o. route is established and can switch to amiodarone loading 400 mg b.i.d. for 2 weeks followed by 200 mg daily. Continue full oral anticoagulation with Eliquis. Will sign of the case at this point time. Time Spent With Patient Time: Total time managing care of this patient today ____ minutes. Progress Note: Quality Stroke Does the patient have a stroke diagnosis?: No Procedures Date of Service Date of Service: 03/04/23
--- NOTE | 2023-03-04 10:19 | MHC.CM.PN ---
Per ROUNDS discussion, Patient is not yet medically cleared for dc (NGT, multiple IV meds):returning to LTC @ [facility] @ [facility] is the goal and CM will continue to follow.
[2023-03-04 10:20] VITALS: BMI 24.7
--- NOTE | 2023-03-04 10:25 | MHC.CLN ---
RE: CONSULT PT WITH NGT PLACED RECOMMEND TF GLUCERNA AT MAX GOAL RATE 95ML/HR WITH 120ML FWF Q 6 HRS TO PROVIDE 2280KCALS (28KCALS/KG), 95G PROTEIN (1.2G/KG), 2425ML TOTAL FROM FORMULA AND FLUSHES (30ML/KG) START FORMULA AT 20ML/HR AND INCREASE BY 10ML Q 4 HRS UNTIL MAX GOAL IS ACHIEVED MONITOR TOLERANCE, RESIDUALS AND LYTES PT MAY BE AT RISK FOR [id number] K+, MG AND PHOS CLOSELY SEE ALSO FULL CLINICAL NUTRITION ASSESSMENT
[2023-03-04] MEDS: Potassium Chloride/H20 10 MEQ/100 ML PIGGYBACK 100 MEQ IV ×2 (10:31→10:59)
[2023-03-04] MEDS: Potassium Chloride Packet 20 MEQ PACKET 40 MEQ NG-TUBE ×2 (10:59→12:00)
[2023-03-04] MEDS: Sodium Bicarbonate 650 MG TABLET NG-TUBE ×2 (10:59→20:54)
[2023-03-04] MEDS: Apixaban 5 MG TABLET PO ×2 (10:59→20:54)
[2023-03-04 12:00] VITALS: BP 109/62; PULSE 87; RESP 20; TEMP 36.4; O2SAT 97
--- NOTE | 2023-03-04 12:00 | PC.NURSE ---
Tube feeding started around this time (1200). Pt started on Glucerna at the starting rate of 20mls/hr per protocol. Pt received water flush of 120ml, to continue receiving it Q6h. Residual to be checked Q4h with a rate increase of 10ml/hr at 1600.
[2023-03-04 12:07] LABS: Glucose, Whole Blood 173 mg/dL (60-115)
--- NOTE | 2023-03-04 12:09 | PM.PNNEP ---
Subjective Subjective Date of Service: 03/04/23 Principal diagnosis: Atrial fibrillation Interval history: Events noted. All recent data reviewed Physical Exam Vital Signs: Vital Signs: Last Vital Signs Temp 97.5 F 03/04/23 12:00 Pulse 87 03/04/23 12:00 Resp 20 03/04/23 12:00 BP 109/62 03/04/23 12:00 Pulse Ox 97 03/04/23 12:00 O2 Del Method Room Air 03/04/23 12:00 O2 Flow Rate 2 02/23/23 15:21 Oxygen Flow Rate 2 02/23/23 05:00 BMI result Body Mass Index 24.7 Const: General: no acute distress Neck: Neck: Yes supple Resp: Auscultation: diminished lung sounds Cardio: Rate: regular rate GI: Palpation (GI): Soft to palpation Neuro: General: moves all extremities Objective Data Labs 03/04/23 06:52 03/04/23 06:52 Labs: Laboratory Results - last 24 hr 03/03/23 03/03/23 03/03/23 13:11 14:59 17:41 WBC RBC Hgb Hct MCV MCH MCHC RDW Plt Count MPV Absolute Neuts (auto) Absolute Nucleated RBC Nucleated RBC % (auto) Sodium 149 H Potassium 3.4 Chloride 121 H Carbon Dioxide 11 L Anion Gap 20 BUN 12 Creatinine 0.88 Estim Creat Clear Calc 91.5 Estimated GFR > 60 POC Glucose 149 H Random Glucose 180 H Calcium 8.5 Phosphorus Magnesium Total Bilirubin Direct Bilirubin AST ALT Alkaline Phosphatase Lactate Dehydrogenase Total Protein Albumin Beta-Hydroxybutyrate 5.69 H Vancomycin Trough 03/03/23 03/03/23 03/03/23 21:13 21:13 23:41 WBC RBC Hgb Hct MCV MCH MCHC RDW Plt Count MPV Absolute Neuts (auto) Absolute Nucleated RBC Nucleated RBC % (auto) Sodium 148 H Potassium 3.0 L Chloride 120 H Carbon Dioxide 15 L Anion Gap 16 BUN 10 Creatinine 0.83 Estim Creat Clear Calc 97.0 Estimated GFR > 60 POC Glucose 159 H Random Glucose 164 H Calcium 8.6 Phosphorus Magnesium Total Bilirubin Direct Bilirubin AST ALT Alkaline Phosphatase Lactate Dehydrogenase Total Protein Albumin Beta-Hydroxybutyrate Vancomycin Trough 11.0 03/04/23 03/04/23 03/04/23 05:52 06:52 06:52 WBC 12.7 H RBC 3.24 L Hgb 8.8 L Hct 27.6 L MCV 85.2 MCH 27.2 MCHC 31.9 RDW 16.5 H Plt Count 323 MPV 9.9 Absolute Neuts (auto) 10.4 H Absolute Nucleated RBC 0.000 Nucleated RBC % (auto) 0.0 Sodium 149 H Potassium 2.8 L Chloride 117 H Carbon Dioxide 19 L Anion Gap 16 BUN 9 Creatinine 0.85 Estim Creat Clear Calc 94.7 Estimated GFR > 60 POC Glucose 172 H Random Glucose 186 H Calcium 8.6 Phosphorus Magnesium Total Bilirubin Direct Bilirubin AST ALT Alkaline Phosphatase Lactate Dehydrogenase Total Protein Albumin Beta-Hydroxybutyrate Vancomycin Trough 03/04/23 03/04/23 06:52 12:03 WBC RBC Hgb Hct MCV MCH MCHC RDW Plt Count MPV Absolute Neuts (auto) Absolute Nucleated RBC Nucleated RBC % (auto) Sodium Potassium Chloride Carbon Dioxide Anion Gap BUN Creatinine 0.88 Estim Creat Clear Calc 91.5 Estimated GFR > 60 POC Glucose 173 H Random Glucose Calcium Phosphorus 1.5 L Magnesium 1.8 Total Bilirubin 0.8 Direct Bilirubin 0.4 AST 23 ALT 12 Alkaline Phosphatase 60 Lactate Dehydrogenase 198 Total Protein 5.5 L Albumin 3.1 L Beta-Hydroxybutyrate Vancomycin Trough Microbiology Microbiology Results: Microbiology 03/02/23 08:16 Blood - Venous Blood Culture - Preliminary No growth after 48 hours. 03/02/23 08:16 Blood - Venous Blood Culture - Preliminary No growth after 48 hours. 02/20/23 02:07 Blood - Venous Blood Culture - Final No growth after 5 days. 02/20/23 02:07 Blood - Venous Blood Culture - Final No growth after 5 days. 02/20/23 Unknown Urine Catheterized - Straight Catheter Urine Culture - Final Jessica glabrata Procedures Date of Service Date of Service: 03/04/23 Assessment & Plan Assessment and plan (1) Metabolic acidosis: Status: Acute Assessment and Plan: Normal renal function ABG reviewed; Lactate normal No reason to suspect toxic ingestion Likely has excess HCO3 loss from stoma ICU Colleagues had seen him Improved with IV Bicarbonate Switched to PO NaHCO3 Needs K replacement Shall closely F/U Progress Note: Quality Stroke Does the patient have a stroke diagnosis?: No
[2023-03-04] MEDS: Insulin Lispro 100 UNIT/ML 3 ML VIAL SUBCUT ×2 (12:10→18:54)
--- NOTE | 2023-03-04 12:53 | HO.PM.IMPN ---
Subjective Subjective Date of Service: 03/04/23 Interval History: Seen and evaluated More alert and interactive, NG tube in place complaining of weakness and not feeling well NA of 149 Metabolic acidosis improving Heart rate better controlled NPO colostomy functioning pain under fair control Review of Systems Review of Systems: Yes all other systems are reviewed and are negative Physical Exam Vital Signs: Vital Signs: Last Vital Signs Temp 97.5 F 03/04/23 12:00 Pulse 87 03/04/23 12:00 Resp 20 03/04/23 12:00 BP 109/62 03/04/23 12:00 Pulse Ox 97 03/04/23 12:00 O2 Del Method Room Air 03/04/23 12:00 O2 Flow Rate 2 02/23/23 15:21 Oxygen Flow Rate 2 02/23/23 05:00 BMI result Body Mass Index 24.7 Const: Other: Constitutional : Awakes with stimulation and more interactive, not in distress Neck : Normal inspection, Supple, NG tube in place Cardiovascular : irregular irregular, tachycardia, no JVP, no lower extremity edema Respiratory : good bilateral air entry, basal crackles Gastrointestinal: soft, lax, fair bowel sounds, Non tender, Ostomy place clean with water dark secretion Skin : Warm, Dry Neurological : arousable, disoriented, No focal deficit Objective Data Active Medications Acetaminophen (Acetaminophen 325 Mg Tablet) 650 mg PO Q8H PRN PRN Reason: fever Last Admin: 03/02/23 05:42 Dose: 650 mg Documented By: SARAH Albuterol/Ipratropium (Albuterol/Iprat 2.5/0.5mg 3 Ml Ampul.Neb) 3 ml INHALE RQ4H PRN PRN Reason: Shortness of Breath/Wheezing Last Admin: 03/02/23 00:44 Dose: 3 ml Documented By: ADONAY Amiodarone HCl (Amiodarone Hcl 200 Mg Tablet) 400 mg PO BID [facility] Apixaban (Apixaban 5 Mg Tablet) 5 mg PO BID [facility] Last Admin: 03/04/23 10:59 Dose: 5 mg Documented By: RIOSCKAILA Benzonatate (Benzonatate 100 Mg Capsule) 200 mg PO TID PRN PRN Reason: Cough Clozapine (Clozapine 100 Mg Tablet) 100 mg PO BEDTIME [facility] Last Admin: 03/03/23 23:43 Dose: Not Given Documented By: HO.WILLIAC Non-Admin Reason: Physician Held Med Dextrose (Dextrose 50 % 25 Gm/50 Ml Syringe) 25 gm IVPUSH Q15M PRN; Protocol PRN Reason: per Hypoglycemia Standing Ord. Last Admin: 02/21/23 07:53 Dose: 25 gm Documented By: PORTIA Comments: bg 67 Glucose (Glucose Gel 15 Gm Gel..Gram.) 15 gm PO Q15M PRN; Protocol PRN Reason: per Hypoglycemia Standing Ord. Ampicillin Sodium/Sulbactam (Sodium 3 gm/ Sodium Chloride) 100 mls @ 200 mls/hr IV Q8H [facility] Last Infusion: 03/04/23 04:06 Dose: 0 mls/hr Documented By: GRACE Caspofungin 50 mg/ Sodium (Chloride) 250 mls @ 250 mls/hr IV Q24H [facility] Last Infusion: 03/03/23 21:06 Dose: 0 mls/hr Documented By: GRACE Vancomycin HCl 1,250 mg/ (Sodium Chloride) 250 mls @ 166.667 mls/hr IV Q12H [facility] Last Admin: 03/04/23 11:10 Dose: 166.7 mls/hr Documented By: MP Amiodarone HCl 900 mg/ Sodium (Chloride) 518 mls @ 34.533 mls/hr IVCONT .Q15H1M [facility]; Protocol Last Admin: 03/04/23 05:28 Dose: 1 mg/min, 34.53 mls/hr Documented By: GRACE Dextrose (D5w) 1,000 mls @ 150 mls/hr IVCONT .Q6H40M [facility] Last Admin: 03/04/23 09:50 Dose: 150 mls/hr Documented By: MP Insulin Human Lispro (Insulin Lispro 100 Unit/Ml 3 Ml Vial) 0 unit SUBCUT Q6H [facility]; Protocol Last Admin: 03/04/23 12:10 Dose: 2 unit Documented By: MP Levothyroxine Sodium (Levothyroxine Sodium 75 Mcg Tablet) 75 mcg PO DAILY@0600 [facility] Last Admin: 03/03/23 07:39 Dose: 75 mcg Documented By: GERTRUDIS Melatonin (Melatonin 3 Mg Tablet) 6 mg PO BEDTIME PRN PRN Reason: Insomnia Pharmacy Consult (Consult Rx Perform Med Rec) 1 each MISCELLANE ONCE PRN PRN Reason: Consult order Pharmacy Consult (Consult Rx Vancomycin Dosing) 1 each MISCELLANE DAILY PRN PRN Reason: Consult order Sodium Bicarbonate (Sodium Bicarbonate 650 Mg Tablet) 650 mg NG-TUBE BID [facility] Last Admin: 03/04/23 10:59 Dose: 650 mg Documented By: MP Sodium Chloride (0.9 % Sodium Chloride Flush 3 Ml Syringe) 3 ml IVFLUSH QSHIFT [facility] Last Admin: 03/04/23 10:31 Dose: 3 ml Documented By: MP Labs 03/04/23 06:52 03/04/23 06:52 Labs: Laboratory Results - last 24 hr 03/03/23 03/03/23 03/03/23 13:11 14:59 17:41 MCV MCH MCHC RDW Plt Count MPV Absolute Neuts (auto) Absolute Nucleated RBC Nucleated RBC % (auto) Anion Gap 20 Estim Creat Clear Calc 91.5 Estimated GFR > 60 POC Glucose 149 H Random Glucose 180 H Calcium 8.5 Phosphorus Magnesium Total Bilirubin Direct Bilirubin AST ALT Alkaline Phosphatase Lactate Dehydrogenase Total Protein Albumin Beta-Hydroxybutyrate 5.69 H Vancomycin Trough 03/03/23 03/03/23 03/03/23 21:13 21:13 23:41 MCV MCH MCHC RDW Plt Count MPV Absolute Neuts (auto) Absolute Nucleated RBC Nucleated RBC % (auto) Anion Gap 16 Estim Creat Clear Calc 97.0 Estimated GFR > 60 POC Glucose 159 H Random Glucose 164 H Calcium 8.6 Phosphorus Magnesium Total Bilirubin Direct Bilirubin AST ALT Alkaline Phosphatase Lactate Dehydrogenase Total Protein Albumin Beta-Hydroxybutyrate Vancomycin Trough 11.0 03/04/23 03/04/23 03/04/23 05:52 06:52 06:52 MCV 85.2 MCH 27.2 MCHC 31.9 RDW 16.5 H Plt Count 323 MPV 9.9 Absolute Neuts (auto) 10.4 H Absolute Nucleated RBC 0.000 Nucleated RBC % (auto) 0.0 Anion Gap 16 Estim Creat Clear Calc 94.7 Estimated GFR > 60 POC Glucose 172 H Random Glucose 186 H Calcium 8.6 Phosphorus Magnesium Total Bilirubin Direct Bilirubin AST ALT Alkaline Phosphatase Lactate Dehydrogenase Total Protein Albumin Beta-Hydroxybutyrate Vancomycin Trough 03/04/23 03/04/23 06:52 12:03 MCV MCH MCHC RDW Plt Count MPV Absolute Neuts (auto) Absolute Nucleated RBC Nucleated RBC % (auto) Anion Gap Estim Creat Clear Calc 91.5 Estimated GFR > 60 POC Glucose 173 H Random Glucose Calcium Phosphorus 1.5 L Magnesium 1.8 Total Bilirubin 0.8 Direct Bilirubin 0.4 AST 23 ALT 12 Alkaline Phosphatase 60 Lactate Dehydrogenase 198 Total Protein 5.5 L Albumin 3.1 L Beta-Hydroxybutyrate Vancomycin Trough Microbiology Microbiology Results: Microbiology 03/02/23 08:16 Blood Culture - Preliminary Blood - Venous No growth after 48 hours. 03/02/23 08:16 Blood Culture - Preliminary Blood - Venous No growth after 48 hours. Assessment and Plan (1) Metabolic acidosis: Status: Acute (2) Hypoalbuminemia: Status: Acute (3) Intravascular volume depletion: Status: Acute (4) Hypophosphatemia: Status: Acute (5) Pneumonia: Status: Acute (6) Severe sepsis: Status: Acute (7) Paroxysmal atrial fibrillation: Status: Acute (8) Swallowing problem: Status: Acute Plan 62M PMH CAD s/p CABG, paroxysmal afib, COPD, DM2, paranoid schizophrenia, hypothyroid, from [facility] presented with abdominal pain, distension, hypoxia Metabolic acidosis w Anion gap , improving Likely 2/2 Ostomy output, dehydration, fasting status DC [id number] drip PO Sodium bicarb Nephrology consult appreciated Follow BMP check CT abdomen Acute hypernatremia 2/2 dehydration D5W for correction Nephro following BMP Moderate protein malnutrition Plan NG tube start tube feeding paroxysmal afib with rvr better controlled PO Metoprolol Continue Amidarone drip, change to PO 400 mg bid restart Eliquis Cardiology input appreciated Sepsis 2/2 Pneumonia Seen on CXR Blood cx negative On broad spectrum of Vancomycin and Unasyn with addition of Caspofungen ID eval Toxic metabolic encephalopathy could be 2/2 infection, medications, hypernatremia Treat with Abx Hold Clozapine at bedtime recurrent reorientation NPO now, DRY WALL SPRAYER following acute sigmoid volvulus POD #9 post s/p exploratory laparotomy, detorsion of sigmoid volvulus, sigmoid resection, end colostomy, Hafsa's pouch. Ostomy functioning Started on Tube feed for low PO intake surgery following severe sepsis and acute hypoxic respiratory failure and acute metabolic encephalopathy due to aspiration pneumonia Early during admission, Hypoxia resolved Finished 10 days of Zosyn Swallowing problem DRY WALL SPRAYER eval, NPO, will continue to assess hypernatremia resolved DC IVF Hypokalemia Resolved, give replacement and follow BMP DM insulin CAD asa, statin hypothryoid synthroid paranoid schizophrenia clozaril dvt prophylaxis Eliquis full code reason for continued hospitalization: awaiting return of gi function and tolerance to PO diet Time Spent With Patient Time: Total time managing care of this patient today ____ minutes. Quality Stroke Does the patient have a stroke diagnosis?: No VTE Prior VTE?: No VTE Risk Level:: Medical - moderate - high VTE Device Contraindication: Treatment Not Indicated VTE Drug Contraindication: N/A - Med Ordered
--- NOTE | 2023-03-04 14:53 | MHC.SLORD ---
Speech Language Pathology Order Status: CNA HHA attempted to see patient. Per conversation w/ RN, patient not appropriate for PO trials. RN reports patient took meds via NG on this date and crushed in pudding last night. Patient reportedly required suctioning this morning. CNA HHA to continue to follow.
[2023-03-04 16:00] VITALS: BP 111/57; PULSE 88; RESP 18; TEMP 36; O2SAT 97
[2023-03-04 16:05] LABS: Anion Gap 13 (12-20); Blood Urea Nitrogen 6 mg/dL (9-16); Calcium 8.2 mg/dL (8.4-10.2); Carbon Dioxide 20 mmol/L (22-29); Chloride 117 mmol/L (96-108); Creatinine Clr Calc Pharmacy 103.2; Estimated Glomerular Filt Rate > 60; Glucose Random 175 mg/dL (60-115); Sodium 147 mmol/L (135-145)
--- NOTE | 2023-03-04 16:32 | W.PM.IDCN ---
History of Present Illness Data of Consult Service Date: 03/03/23 Requesting physician: Galen Patton Primary Care Provider: DO CEFERINO Jorge Reason for consult: pneumonia,sepsis,boone glabrata urine He presents with weakness for two days and found to have hypotension. CXR shows bilateral infiltrates. He has boone glabrata urine. Review of Systems Review of Systems: Yes Unobtainable due to mental status PMFSH Past Medical History Medical History (Updated 03/04/23 @ 16:34 by Hilda Riley MD) Altered mental status Amblyopia, left eye Anemia Atherosclerotic heart disease of [place] coronary artery without angina pectoris Boutonniere deformity of finger Candidal urinary tract infection Cognitive impairment COPD (chronic obstructive pulmonary disease) COVID-19 Dementia Drug induced subacute dyskinesia Dysphagia Encephalopathy Essential (primary) hypertension Exotropia, alternating, with A pattern Hyperlipidemia Hypermetropia of both eyes Hypothyroidism Palsy (spasm) of conjugate gaze Paranoid schizophrenia Personal history of transient ischemic attack (TIA), and cerebral infarction without residual deficits Ptosis of right eyelid Type 2 diabetes mellitus Family History Family history: reviewed and not pertinent Surgical History Surgical History Presence of aortocoronary bypass graft Social History Social History Household Members: Unknown / Unable to assess Household Members Other:: [facility] Housing: Other Housing Other:: [facility] Do you presently have visiting nurse or other home services: No Unable to assess alcohol history related to: Unknown Patient Tobacco Use Status: Former Tobacco user Tobacco use type: Cigarette Years Smoked: SURAJ Use of substances other than those prescribed or required for medical reasons: No Currently Displaying Signs/Symptoms of Drug Intoxication Withdrawal: No Are you DNR?: No Advance Directives: Yes Advance Directives on File: Yes Advance Directives Date on File: 12/14/21 Do you have thoughts of harming others: None Do you have a plan to hurt others: No Plan service: No Current occupational status: disabled Meds Allergies Allergy/AdvReac Type Severity Reaction Status Date / Time No Known Allergies Allergy Unverified 04/05/20 19:36 [No Known Allergies*] Active Medications: Current Medications Acetaminophen (Acetaminophen 325 Mg Tablet) 650 mg PO Q8H PRN PRN Reason: fever Last Admin: 03/02/23 05:42 Dose: 650 mg Albuterol/Ipratropium (Albuterol/Iprat 2.5/0.5mg 3 Ml Ampul.Neb) 3 ml INHALE RQ4H PRN PRN Reason: Shortness of Breath/Wheezing Last Admin: 03/02/23 00:44 Dose: 3 ml Amiodarone HCl (Amiodarone Hcl 200 Mg Tablet) 400 mg G-TUBE BID [facility] Apixaban (Apixaban 5 Mg Tablet) 5 mg PO BID [facility] Last Admin: 03/04/23 10:59 Dose: 5 mg Benzonatate (Benzonatate 100 Mg Capsule) 200 mg PO TID PRN PRN Reason: Cough Clozapine (Clozapine 100 Mg Tablet) 100 mg PO BEDTIME [facility] Last Admin: 03/03/23 23:43 Dose: Not Given Dextrose (Dextrose 50 % 25 Gm/50 Ml Syringe) 25 gm IVPUSH Q15M PRN; Protocol PRN Reason: per Hypoglycemia Standing Ord. Last Admin: 02/21/23 07:53 Dose: 25 gm Glucose (Glucose Gel 15 Gm Gel..Gram.) 15 gm PO Q15M PRN; Protocol PRN Reason: per Hypoglycemia Standing Ord. Ampicillin Sodium/Sulbactam (Sodium 3 gm/ Sodium Chloride) 100 mls @ 200 mls/hr IV Q8H [facility] Last Infusion: 03/04/23 13:30 Dose: Infused Caspofungin 50 mg/ Sodium (Chloride) 250 mls @ 250 mls/hr IV Q24H [facility] Last Infusion: 03/03/23 21:06 Dose: Infused Vancomycin HCl 1,250 mg/ (Sodium Chloride) 250 mls @ 166.667 mls/hr IV Q12H [facility] Last Infusion: 03/04/23 12:56 Dose: Infused Amiodarone HCl 900 mg/ Sodium (Chloride) 518 mls @ 34.533 mls/hr IVCONT .Q15H1M [facility]; Protocol Stop: 03/04/23 20:59 Last Infusion: 03/04/23 14:55 Dose: 0.5 mg/min, 17.27 mls/hr Dextrose (D5w) 1,000 mls @ 150 mls/hr IVCONT .Q6H40M [facility] Last Admin: 03/04/23 09:50 Dose: 150 mls/hr Insulin Human Lispro (Insulin Lispro 100 Unit/Ml 3 Ml Vial) 0 unit SUBCUT Q6H [facility]; Protocol Last Admin: 03/04/23 12:10 Dose: 2 unit Levothyroxine Sodium (Levothyroxine Sodium 75 Mcg Tablet) 75 mcg PO DAILY@0600 [facility] Last Admin: 03/03/23 07:39 Dose: 75 mcg Melatonin (Melatonin 3 Mg Tablet) 6 mg PO BEDTIME PRN PRN Reason: Insomnia Pharmacy Consult (Consult Rx Perform Med Rec) 1 each MISCELLANE ONCE PRN PRN Reason: Consult order Pharmacy Consult (Consult Rx Vancomycin Dosing) 1 each MISCELLANE DAILY PRN PRN Reason: Consult order Sodium Bicarbonate (Sodium Bicarbonate 650 Mg Tablet) 650 mg NG-TUBE BID [facility] Last Admin: 03/04/23 10:59 Dose: 650 mg Sodium Chloride (0.9 % Sodium Chloride Flush 3 Ml Syringe) 3 ml IVFLUSH QSHIFT [facility] Last Admin: 03/04/23 10:31 Dose: 3 ml Home Medications Medication Instructions Recorded Confirmed Last Taken Type aspirin 81 mg chewable tablet 81 mg PO DAILY 12/13/21 02/20/23 12/12/21 History atorvastatin 80 mg tablet 1 tab PO BEDTIME 12/13/21 02/20/23 12/12/21 History canagliflozin 100 mg tablet 1 tab PO DAILY 12/13/21 02/20/23 12/12/21 History (Invokana) clozapine 200 mg tablet 1 tab PO BEDTIME 12/13/21 02/20/23 12/12/21 History ferrous sulfate 325 mg (65 mg 325 mg PO DAILY@1700 12/13/21 02/20/23 12/12/21 History iron) tablet insulin glargine 100 unit/mL (3 20 unit subcut BEDTIME 12/13/21 02/20/23 12/12/21 History mL) subcutaneous pen (Lantus Solostar U-100 Insulin) lactulose 10 gram/15 mL oral 30 ml PO DAILY 12/13/21 02/20/23 12/12/21 History solution levothyroxine 75 mcg tablet 1 tab PO DAILY@0600 12/13/21 02/20/23 12/12/21 History linagliptin 5 mg tablet (Tradjenta) 1 tab PO DAILY 12/13/21 02/20/23 12/12/21 History omega 1-iah-ann-fish oil 1,000 mg 1 cap PO BID 12/13/21 02/20/23 12/12/21 History (120 mg-180 mg) capsule (Fish Oil) pantoprazole 40 mg tablet,delayed 1 tab PO BID@0630,1630 12/13/21 02/20/23 12/12/21 History release metformin 500 mg tablet 1,000 mg PO BID 12/27/22 02/20/23 Unknown History nicotine 7 mg/24 hr daily 1 patch transdermal Q24H PRN 12/27/22 02/20/23 Unknown History transdermal patch Smoking Cessation nystatin 100,000 unit/gram topical 1 appl topical BID 12/27/22 02/20/23 Unknown History powder sennosides 8.6 mg tablet (senna) 8.6 mg PO DAILY PRN Constipation 12/27/22 02/20/23 Unknown History metoprolol tartrate 25 mg tablet 12.5 mg PO BID 02/20/23 02/20/23 Unknown History zinc oxide 1 appl topical QSHIFT 02/20/23 02/20/23 Unknown History Physical Exam Vital Signs: Vital Signs: Last Vital Signs Temp 96.8 F 03/04/23 16:00 Pulse 88 03/04/23 16:00 Resp 18 03/04/23 16:00 BP 111/57 L 03/04/23 16:00 Pulse Ox 97 03/04/23 16:00 O2 Del Method Room Air 03/04/23 16:00 O2 Flow Rate 2 02/23/23 15:21 Oxygen Flow Rate 2 02/23/23 05:00 BMI result Body Mass Index 24.7 Const: General: cooperative HEENT: Head: Yes normal to inspection Face and sinus: Yes normal facial exam Mouth: Normal oral and palatal mucosa present Teeth and gingiva: dentition normal Eyes: General: appearance normal, both eyes and all related structures Pupils: Equal, round and reactive pupils present Resp: Effort & Inspection: normal respiratory effort Cardio: Rate: regular rate Rhythm: regular rhythm GI: Palpation (GI): Soft to palpation and nontender : General: Yes no CVA tenderness Back/Spine/Pelvis: Back: no CVA tenderness Skin: General skin exam: no rashes or lesions noted Neuro: General: moves all extremities Cranial nerves: Yes Equal, round and reactive pupils present Extrem: General: Yes normal to inspection Psych: Appearance: grossly normal Results Labs 03/04/23 06:52 03/04/23 15:41 Labs: Short CBC 03/04/23 Range/Units 06:52 WBC 12.7 H (4.8-10.8) X10*3/uL Hgb 8.8 L (14.0-18.0) g/dl Hct 27.6 L (42.0-52.0) % Plt Count 323 (160-400) X10*3/uL BMP 03/03/23 03/03/23 03/04/23 14:59 21:13 06:52 Sodium 149 H 148 H 149 H Potassium 3.4 3.0 L 2.8 L Chloride 121 H 120 H 117 H Carbon Dioxide 11 L 15 L 19 L BUN 12 10 9 Creatinine 0.88 0.83 0.85 Calcium 8.5 8.6 8.6 03/04/23 03/04/23 06:52 15:41 Sodium 147 H Potassium 3.0 L Chloride 117 H Carbon Dioxide 20 L BUN 6 L Creatinine 0.88 0.78 Calcium 8.2 L Liver Function 03/04/23 Range/Units 06:52 Total Bilirubin 0.8 (0.0-1.0) mg/dL Direct Bilirubin 0.4 (0.0-0.5) mg/dL AST 23 (5-37) U/L ALT 12 (0-40) U/L Alkaline Phosphatase 60 (39-117) U/L Albumin 3.1 L (3.5-5.0) g/dL Microbiology Microbiology Results: Microbiology 03/02/23 08:16 Blood - Venous Blood Culture - Preliminary No growth after 48 hours. 03/02/23 08:16 Blood - Venous Blood Culture - Preliminary No growth after 48 hours. 02/20/23 02:07 Blood - Venous Blood Culture - Final No growth after 5 days. 02/20/23 02:07 Blood - Venous Blood Culture - Final No growth after 5 days. 02/20/23 Unknown Urine Catheterized - Straight Catheter Urine Culture - Final Boone glabrata Assessment and Plan (1) Pneumonia: Status: Acute Possible aspiration pneumonia,gram negative and anerobes Less likely boone glabrata UTI (2) Severe sepsis: Status: Acute (3) Volvulus of sigmoid colon: Status: Acute Plan 7 day IV Unasyn and Vancomycin. 7 day now day 3 Caspofungin preferable. Time Spent With Patient Time: Total time managing care of this patient today ____ minutes.
[2023-03-04] MEDS: Potassium Chloride Packet 20 MEQ PACKET 40 MEQ G-TUBE ×2 (17:53→20:58)
[2023-03-04] MEDS: Caspofungin Acetate 50 MG in 0.9 % Sodium Chloride 250 ML 250 MG IV (17:54)
[2023-03-04 18:07] LABS: Glucose, Whole Blood 160 mg/dL (60-115)
[2023-03-04 20:00] VITALS: BP 110/76; PULSE 92; RESP 18; TEMP 35.9; O2SAT 98
[2023-03-04] MEDS: cloZAPine 25 MG TABLET 50 MG PO (20:54)
[2023-03-04] MEDS: Amiodarone HCL 200 MG TABLET 400 MG G-TUBE (20:56)
[2023-03-04 21:58] LABS: Vancomycin Random 8.9 mcg/mL (15-20)
[2023-03-04 21:59] LABS: Anion Gap 10 (12-20); Blood Urea Nitrogen 6 mg/dL (9-16); Calcium 7.9 mg/dL (8.4-10.2); Carbon Dioxide 20 mmol/L (22-29); Chloride 113 mmol/L (96-108); Creatinine Clr Calc Pharmacy 103.2; Estimated Glomerular Filt Rate > 60; Glucose Random 371 mg/dL (60-115); Potassium 3.3 mmol/L (3.3-5.1); Sodium 140 mmol/L (135-145)
--- NOTE | 2023-03-04 22:06 | HE.PHANOTE ---
VANCOMYCIN DOSING ADJUSTMENT BASED ON SCR OF 0.85 AND TROUGH OF 8.9 DOSE INCREASED TO 1500 Q 12H. TARGETED AUC OF 546. NEXT TROUGH 03/05 @ 2100
[2023-03-04] MEDS: vancomycin HCL 1,500 MG in 0.9 % Sodium Chloride 500 ML 333.33 MG IV (23:00)
[2023-03-04 23:42] LABS: Glucose, Whole Blood 172 mg/dL (60-115)
[2023-03-05] VITALS (7 sets, daily range): BP systolic 96–107; BP diastolic 53–66; PULSE 80–103; RESP 16–28; TEMP 36.1–37.1; O2SAT 94–98
[2023-03-05] MEDS: Ampicillin Sodium/Sulbactam Na 3 GM in 0.9 % Sodium Chloride 100 ML IV ×3 (02:17→17:20)
[2023-03-05] MEDS: Insulin Lispro 100 UNIT/ML 3 ML VIAL SUBCUT ×3 (05:41→17:21)
[2023-03-05] MEDS: Levothyroxine Sodium 75 MCG TABLET PO (05:42)
[2023-03-05 05:44] LABS: Glucose, Whole Blood 186 mg/dL (60-115)
[2023-03-05 05:50] LABS: Hematocrit 28.3 % (42.0-52.0); Mean Corpuscular HGB Conc 31.8 g/dl (31.0-36.0); Mean Corpuscular Hemoglobin 26.8 pg (27.0-33.0); Mean Corpuscular Volume 84.2 fL (80.0-98.0); NRBC Pct Auto 0.2 /100WBC (0.0-0.2); Platelet Count 339 X10*3/uL (160-400); Red Blood Count 3.36 X10*6/uL (4.60-5.80); Red Cell Distribution Width 16.8 % (11.0-16.0); White Blood Count 11.2 X10*3/uL (4.8-10.8)
[2023-03-05 06:13] LABS: Anion Gap 13 (12-20); Blood Urea Nitrogen 6 mg/dL (9-16); Calcium 8.3 mg/dL (8.4-10.2); Carbon Dioxide 18 mmol/L (22-29); Chloride 118 mmol/L (96-108); Creatinine Clr Calc Pharmacy 113.4; Estimated Glomerular Filt Rate > 60; Glucose Random 189 mg/dL (60-115); Potassium 3.1 mmol/L (3.3-5.1); Sodium 146 mmol/L (135-145)
[2023-03-05 07:11] LABS: Glucose, Whole Blood 169 mg/dL (60-115)
[2023-03-05] MEDS: Potassium Chloride Packet 20 MEQ PACKET 40 MEQ G-TUBE ×3 (09:18→22:09)
[2023-03-05] MEDS: Amiodarone HCL 200 MG TABLET 400 MG G-TUBE ×2 (09:18→22:09)
[2023-03-05] MEDS: Apixaban 5 MG TABLET PO ×2 (09:18→22:08)
[2023-03-05] MEDS: 0.9 % Sodium Chloride Flush 3 ML SYRINGE IVFLUSH ×2 (09:18→15:43)
[2023-03-05] MEDS: Sodium Bicarbonate 650 MG TABLET NG-TUBE ×2 (09:18→22:09)
[2023-03-05] MEDS: vancomycin HCL 1,500 MG in 0.9 % Sodium Chloride 500 ML 333.33 MG IV (10:27)
[2023-03-05 12:01] LABS: Glucose, Whole Blood 172 mg/dL (60-115)
--- NOTE | 2023-03-05 13:22 | MHC.SLORD ---
Speech Language Pathology Order Status: Attempted to see patient to re-assess for swallow/restart PO. Patient asleep at time of visit, per RN continues lethargic throughout day. Not appropriate for treatment today, WATER SYSTEMS DESIGNER will continue to follow.
--- NOTE | 2023-03-05 14:12 | HO.PM.IMPN ---
Subjective Subjective Date of Service: 03/05/23 Interval History: Seen and evaluated Still difficult to arouse but more alert and interactive, NG tube in place w tube diet NA of 146 Metabolic acidosis improving Heart rate better controlled NPO colostomy functioning pain under fair control Review of Systems Review of Systems: Yes Unobtainable due to mental status Physical Exam Vital Signs: Vital Signs: Last Vital Signs Temp 97.0 F 03/05/23 11:41 Pulse 80 03/05/23 11:41 Resp 20 03/05/23 11:41 BP 96/54 L 03/05/23 11:41 Pulse Ox 98 03/05/23 11:41 O2 Del Method Room Air 03/05/23 11:41 O2 Flow Rate 2 02/23/23 15:21 Oxygen Flow Rate 2 02/23/23 05:00 BMI result Body Mass Index 24.7 Const: Other: Constitutional : lethargic, Awakes with stimulation and more interactive, not in distress Neck : Normal inspection, Supple, NG tube in place Cardiovascular : irregular irregular, tachycardia, no JVP, no lower extremity edema Respiratory : good bilateral air entry, basal crackles Gastrointestinal: soft, lax, fair bowel sounds, Non tender, Ostomy place clean with water dark secretion, Tube feed running through NG Skin : Warm, Dry Neurological : arousable, disoriented, No focal deficit Objective Data Active Medications Acetaminophen (Acetaminophen 325 Mg Tablet) 650 mg PO Q8H PRN PRN Reason: fever Last Admin: 03/02/23 05:42 Dose: 650 mg Documented By: SARAH Albuterol/Ipratropium (Albuterol/Iprat 2.5/0.5mg 3 Ml Ampul.Neb) 3 ml INHALE RQ4H PRN PRN Reason: Shortness of Breath/Wheezing Last Admin: 03/02/23 00:44 Dose: 3 ml Documented By: ADONAY Amiodarone HCl (Amiodarone Hcl 200 Mg Tablet) 400 mg G-TUBE BID [facility] Last Admin: 03/05/23 09:18 Dose: 400 mg Documented By: MP Apixaban (Apixaban 5 Mg Tablet) 5 mg PO BID [facility] Last Admin: 03/05/23 09:18 Dose: 5 mg Documented By: MP Benzonatate (Benzonatate 100 Mg Capsule) 200 mg PO TID PRN PRN Reason: Cough Clozapine (Clozapine 25 Mg Tablet) 50 mg PO BEDTIME [facility] Last Admin: 03/04/23 20:54 Dose: 50 mg Documented By: HALLIE Dextrose (Dextrose 50 % 25 Gm/50 Ml Syringe) 25 gm IVPUSH Q15M PRN; Protocol PRN Reason: per Hypoglycemia Standing Ord. Last Admin: 02/21/23 07:53 Dose: 25 gm Documented By: PORTIA Comments: bg 67 Glucose (Glucose Gel 15 Gm Gel..Gram.) 15 gm PO Q15M PRN; Protocol PRN Reason: per Hypoglycemia Standing Ord. Ampicillin Sodium/Sulbactam (Sodium 3 gm/ Sodium Chloride) 100 mls @ 200 mls/hr IV Q8H [facility] Last Infusion: 03/05/23 10:13 Dose: 0 mls/hr Documented By: MP Caspofungin 50 mg/ Sodium (Chloride) 250 mls @ 250 mls/hr IV Q24H [facility] Last Infusion: 03/04/23 19:02 Dose: 0 mls/hr Documented By: HALLIE Vancomycin HCl 1,500 mg/ (Sodium Chloride) 500 mls @ 333.333 mls/hr IV Q12H [facility] Last Infusion: 03/05/23 12:12 Dose: 0 mls/hr Documented By: MP Insulin Human Lispro (Insulin Lispro 100 Unit/Ml 3 Ml Vial) 0 unit SUBCUT Q6H [facility]; Protocol Last Admin: 03/05/23 12:18 Dose: 2 unit Documented By: MP Levothyroxine Sodium (Levothyroxine Sodium 75 Mcg Tablet) 75 mcg PO DAILY@0600 [facility] Last Admin: 03/05/23 05:42 Dose: 75 mcg Documented By: FAITH Melatonin (Melatonin 3 Mg Tablet) 6 mg PO BEDTIME PRN PRN Reason: Insomnia Pharmacy Consult (Consult Rx Perform Med Rec) 1 each MISCELLANE ONCE PRN PRN Reason: Consult order Pharmacy Consult (Consult Rx Vancomycin Dosing) 1 each MISCELLANE DAILY PRN PRN Reason: Consult order Potassium Chloride (Potassium Chloride Packet 20 Meq Packet) 40 meq G-TUBE BID [facility] Last Admin: 03/05/23 09:18 Dose: 40 meq Documented By: MP Sodium Bicarbonate (Sodium Bicarbonate 650 Mg Tablet) 650 mg NG-TUBE BID [facility] Last Admin: 03/05/23 09:18 Dose: 650 mg Documented By: MP Sodium Chloride (0.9 % Sodium Chloride Flush 3 Ml Syringe) 3 ml IVFLUSH QSHIFT [facility] Last Admin: 03/05/23 09:18 Dose: 3 ml Documented By: MP Labs 03/05/23 05:29 03/05/23 05:29 Labs: Laboratory Results - last 24 hr 03/04/23 03/04/23 03/04/23 15:41 18:02 21:35 MCV MCH MCHC RDW Plt Count MPV Absolute Nucleated RBC Nucleated RBC % (auto) Anion Gap 13 Estim Creat Clear Calc 103.2 Estimated GFR > 60 POC Glucose 160 H Random Glucose 175 H Calcium 8.2 L Random Vancomycin 8.9 L 03/04/23 03/04/23 03/05/23 21:35 23:37 05:29 MCV 84.2 MCH 26.8 L MCHC 31.8 RDW 16.8 H Plt Count 339 MPV 10.0 Absolute Nucleated RBC 0.020 H Nucleated RBC % (auto) 0.2 Anion Gap 10 L Estim Creat Clear Calc 103.2 Estimated GFR > 60 POC Glucose 172 H Random Glucose 371 H* Calcium 7.9 L Random Vancomycin 03/05/23 03/05/23 03/05/23 05:29 05:32 07:06 MCV MCH MCHC RDW Plt Count MPV Absolute Nucleated RBC Nucleated RBC % (auto) Anion Gap 13 Estim Creat Clear Calc 113.4 Estimated GFR > 60 POC Glucose 186 H 169 H Random Glucose 189 H Calcium 8.3 L Random Vancomycin 03/05/23 11:58 MCV MCH MCHC RDW Plt Count MPV Absolute Nucleated RBC Nucleated RBC % (auto) Anion Gap Estim Creat Clear Calc Estimated GFR POC Glucose 172 H Random Glucose Calcium Random Vancomycin Microbiology Microbiology Results: Microbiology 03/02/23 08:16 Blood Culture - Preliminary Blood - Venous No growth after 48 hours. 03/02/23 08:16 Blood Culture - Preliminary Blood - Venous No growth after 48 hours. Assessment and Plan (1) Candidal urinary tract infection: Status: Acute (2) Metabolic acidosis: Status: Acute (3) Adverse effect of clozapine: Status: Acute (4) Intravascular volume depletion: Status: Acute (5) Hypoalbuminemia: Status: Acute (6) Hypophosphatemia: Status: Acute (7) Severe sepsis: Status: Acute (8) Pneumonia: Status: Acute (9) Paroxysmal atrial fibrillation: Status: Acute (10) Swallowing problem: Status: Acute Plan 62M PMH CAD s/p CABG, paroxysmal afib, COPD, DM2, paranoid schizophrenia, hypothyroid, from [facility] presented with abdominal pain, distension, hypoxia Toxic metabolic encephalopathy could be 2/2 infection, medications, hypernatremia Treat with Abx for 1 week per ID Decrease Clozapine for 200 to 50 for now, he was obtunded with higher dosage. recurrent reorientation NPO now, YEAST STACKER following Metabolic acidosis w Anion gap , improving Likely 2/2 Ostomy output, dehydration, fasting status DC [id number] drip, PO Sodium bicarb Nephrology consult appreciated Follow BMP Constipation CT abdomen showed large amount of stool burden start Miralax, Senna Acute hypernatremia 2/2 dehydration Na 146 Increase Free water bolus through NG tube Nephro following BMP Moderate protein malnutrition NG tube w tube feeding for now encourage PO intake once more alert paroxysmal afib with rvr better controlled PO Metoprolol Continue Amidarone drip, change to PO 400 mg bid restart Eliquis Cardiology input appreciated Sepsis 2/2 Pneumonia and Candidal UTI Seen on CXR Blood cx negative On broad spectrum of Vancomycin and Unasyn with addition of Caspofungen (1 week per ID eval) acute sigmoid volvulus POD #10 post s/p exploratory laparotomy, detorsion of sigmoid volvulus, sigmoid resection, end colostomy, Hafsa's pouch. Ostomy functioning Started on Tube feed for low PO intake surgery following, dr Mensah. severe sepsis and acute hypoxic respiratory failure and acute metabolic encephalopathy due to aspiration pneumonia Early during admission, Hypoxia resolved Finished 10 days of Zosyn ear;oer this admission Swallowing problem YEAST STACKER eval, NPO, will continue to assess hypernatremia resolved DC IVF Hypokalemia Resolved, give replacement and follow BMP DM insulin CAD asa, statin hypothryoid synthroid paranoid schizophrenia clozaril dvt prophylaxis Eliquis full code reason for continued hospitalization: awaiting return of gi function and tolerance to PO diet Time Spent With Patient Time: Total time managing care of this patient today ____ minutes. Quality Stroke Does the patient have a stroke diagnosis?: No VTE Prior VTE?: No VTE Risk Level:: Medical - moderate - high VTE Device Contraindication: Treatment Not Indicated VTE Drug Contraindication: N/A - Med Ordered
[2023-03-05] MEDS: polyethylene glycoL 3350 17 GM POWD.PACK G-TUBE (15:42)
[2023-03-05 16:20] LABS: Anion Gap 11 (12-20); Blood Urea Nitrogen 6 mg/dL (9-16); Calcium 8.3 mg/dL (8.4-10.2); Carbon Dioxide 22 mmol/L (22-29); Chloride 117 mmol/L (96-108); Creatinine Clr Calc Pharmacy 123.8; Estimated Glomerular Filt Rate > 60; Glucose Random 166 mg/dL (60-115); Potassium 3.1 mmol/L (3.3-5.1); Sodium 147 mmol/L (135-145)
[2023-03-05] MEDS: Caspofungin Acetate 50 MG in 0.9 % Sodium Chloride 250 ML 250 MG IV (16:47)
[2023-03-05 17:19] LABS: Glucose, Whole Blood 179 mg/dL (60-115)
--- NOTE | 2023-03-05 21:35 | HE.PHANOTE ---
RE: VANCO Patients level came back this evening at 12. Continue with 1500 mg Q12H. Predicted AUC 448, next level to be drawn tomorrow 03/06 @2100.
[2023-03-05] MEDS: cloZAPine 25 MG TABLET 50 MG PO (22:08)
[2023-03-06 00:27] LABS: Glucose, Whole Blood 207 mg/dL (60-115)
[2023-03-06] MEDS: vancomycin HCL 1,500 MG in 0.9 % Sodium Chloride 500 ML 333.33 MG IV (00:33)
[2023-03-06] MEDS: Insulin Lispro 100 UNIT/ML 3 ML VIAL SUBCUT ×3 (00:34→18:11)
[2023-03-06] MEDS: 0.9 % Sodium Chloride Flush 3 ML SYRINGE IVFLUSH ×2 (00:34→08:43)
[2023-03-06] MEDS: Ampicillin Sodium/Sulbactam Na 3 GM in 0.9 % Sodium Chloride 100 ML IV ×3 (02:28→21:27)
[2023-03-06 04:00] VITALS: BP 105/59; PULSE 69; RESP 18; TEMP 36.1; O2SAT 97
--- NOTE | 2023-03-06 04:09 | PM.EVENT ---
Event Note Date of Service: 03/06/23 Event Note: Nursing reported that patient bleeding around ostomy site. Will consult General surgery. Noted low blood pressure, will resuscitate with IV crystalloids. Time Spent With Patient Time: Total time managing care of this patient today ____ minutes.
[2023-03-06] MEDS: 0.9 % Sodium Chloride 1,000 ML 999 ML IV (04:28)
--- NOTE | 2023-03-06 05:06 | PC.NURSE ---
P: Patient bleeding around colostomy bag. While bag was being changed, stoma site was noted to be large, red, oozing yellow/clear jelly-like fluid with large blood clot. Patient was also noted to have a blood pressure 85/51, HR 70's. I: Dr. Friedman notified and at bedside to evaluate. Orders for 1L NS bolus and surgery consult placed. Sitter is at bedside to ensure patient does not pull at any tubes. E: Bolus started, patient was repositioned and cleaned. Abdominal DSG and colostomy bag changed and now CDI. BP trended up to 105/59. HR maintains 70's in afib/aflutter. Patient is confused and slightly lethargic at this time. NGT in place. Will continue to monitor and re-assess.
[2023-03-06 05:40] LABS: Glucose, Whole Blood 139 mg/dL (60-115)
[2023-03-06] MEDS: Levothyroxine Sodium 75 MCG TABLET PO (05:40)
[2023-03-06 06:39] LABS: Hematocrit 26.8 % (42.0-52.0); Hemoglobin 8.7 g/dl (14.0-18.0); Mean Corpuscular HGB Conc 32.5 g/dl (31.0-36.0); Mean Corpuscular Volume 83.2 fL (80.0-98.0); Platelet Count 366 X10*3/uL (160-400); Red Blood Count 3.22 X10*6/uL (4.60-5.80); Red Cell Distribution Width 16.8 % (11.0-16.0); White Blood Count 8.4 X10*3/uL (4.8-10.8)
[2023-03-06 06:54] LABS: Anion Gap 10 (12-20); Blood Urea Nitrogen 6 mg/dL (9-16); Calcium 7.9 mg/dL (8.4-10.2); Carbon Dioxide 20 mmol/L (22-29); Chloride 118 mmol/L (96-108); Creatinine Clr Calc Pharmacy 136.4; Creatinine Clr Calc Pharmacy 146.4; Estimated Glomerular Filt Rate > 60; Glucose Random 174 mg/dL (60-115); Potassium 3.4 mmol/L (3.3-5.1); Sodium 145 mmol/L (135-145)
[2023-03-06 07:24] VITALS: BP 109/57; PULSE 93; RESP 22; TEMP 36.2; O2SAT 96
[2023-03-06 07:53] LABS: Glucose, Whole Blood 191 mg/dL (60-115)
--- NOTE | 2023-03-06 07:59 | P.PNGS_ITS ---
Subjective Subjective Date of Service: 03/06/23 Interval history: Patient apparently ripped off ostomy appliance last evening and was handling his ostomy. Patient currently receiving nasogastric tube feeds. Physical Exam Vital Signs: Vital Signs: Last Vital Signs Temp 97.1 F 03/06/23 07:24 Pulse 93 03/06/23 07:24 Resp 22 H 03/06/23 07:24 BP 109/57 L 03/06/23 07:24 Pulse Ox 96 03/06/23 07:24 O2 Del Method Room Air 03/06/23 07:24 O2 Flow Rate 2 02/23/23 15:21 Oxygen Flow Rate 2 02/23/23 05:00 BMI result Body Mass Index 24.7 Const: Other: Patient is semi arousable, bordering obtunded GI: Other: Abdomen moderately distended. Incision clean dry and intact. Ostomy was evaluated and is pink and viable with serous ostomy output. Objective Data Active Medications Acetaminophen (Acetaminophen 325 Mg Tablet) 650 mg PO Q8H PRN PRN Reason: fever Last Admin: 03/02/23 05:42 Dose: 650 mg Documented By: SARAH Albuterol/Ipratropium (Albuterol/Iprat 2.5/0.5mg 3 Ml Ampul.Neb) 3 ml INHALE RQ4H PRN PRN Reason: Shortness of Breath/Wheezing Last Admin: 03/02/23 00:44 Dose: 3 ml Documented By: ADONAY Amiodarone HCl (Amiodarone Hcl 200 Mg Tablet) 400 mg G-TUBE BID [facility] Last Admin: 03/05/23 22:09 Dose: 400 mg Documented By: MED Apixaban (Apixaban 5 Mg Tablet) 5 mg PO BID [facility] Last Admin: 03/05/23 22:08 Dose: 5 mg Documented By: MED Benzonatate (Benzonatate 100 Mg Capsule) 200 mg PO TID PRN PRN Reason: Cough Clozapine (Clozapine 25 Mg Tablet) 50 mg PO BEDTIME [facility] Last Admin: 03/05/23 22:08 Dose: 50 mg Documented By: MED Dextrose (Dextrose 50 % 25 Gm/50 Ml Syringe) 25 gm IVPUSH Q15M PRN; Protocol PRN Reason: per Hypoglycemia Standing Ord. Last Admin: 02/21/23 07:53 Dose: 25 gm Documented By: PORTIA Comments: bg 67 Glucose (Glucose Gel 15 Gm Gel..Gram.) 15 gm PO Q15M PRN; Protocol PRN Reason: per Hypoglycemia Standing Ord. Ampicillin Sodium/Sulbactam (Sodium 3 gm/ Sodium Chloride) 100 mls @ 200 mls/hr IV Q8H [facility] Last Infusion: 03/06/23 03:50 Dose: 0 mls/hr Documented By: LAWRENCE Caspofungin 50 mg/ Sodium (Chloride) 250 mls @ 250 mls/hr IV Q24H [facility] Last Infusion: 03/05/23 18:03 Dose: 0 mls/hr Documented By: MP Vancomycin HCl 1,500 mg/ (Sodium Chloride) 500 mls @ 333.333 mls/hr IV Q12H [facility] Last Infusion: 03/06/23 02:35 Dose: 0 mls/hr Documented By: LAWRENCE Insulin Human Lispro (Insulin Lispro 100 Unit/Ml 3 Ml Vial) 0 unit SUBCUT Q6H [facility]; Protocol Last Admin: 03/06/23 05:38 Dose: Not Given Documented By: LAWRENCE Non-Admin Reason: No Insulin Coverage Levothyroxine Sodium (Levothyroxine Sodium 75 Mcg Tablet) 75 mcg PO DAILY@0600 [facility] Last Admin: 03/06/23 05:40 Dose: 75 mcg Documented By: LAWRENCE Melatonin (Melatonin 3 Mg Tablet) 6 mg PO BEDTIME PRN PRN Reason: Insomnia Pharmacy Consult (Consult Rx Perform Med Rec) 1 each MISCELLANE ONCE PRN PRN Reason: Consult order Pharmacy Consult (Consult Rx Vancomycin Dosing) 1 each MISCELLANE DAILY PRN PRN Reason: Consult order Polyethylene Glycol (Polyethylene Glycol 3350 17 Gm Powd.Pack) 17 gm G-TUBE DAILY [facility] Last Admin: 03/05/23 15:42 Dose: 17 gm Documented By: MP Potassium Chloride (Potassium Chloride Packet 20 Meq Packet) 40 meq G-TUBE BID [facility] Last Admin: 03/05/23 22:09 Dose: 40 meq Documented By: MED Sodium Bicarbonate (Sodium Bicarbonate 650 Mg Tablet) 650 mg NG-TUBE BID [facility] Last Admin: 03/05/23 22:09 Dose: 650 mg Documented By: MED Sodium Chloride (0.9 % Sodium Chloride Flush 3 Ml Syringe) 3 ml IVFLUSH QSHIFT [facility] Last Admin: 03/06/23 00:34 Dose: 3 ml Documented By: J CARLOSOIC Labs 03/06/23 06:17 03/06/23 06:17 Labs: Laboratory Results - last 24 hr 03/05/23 03/05/23 03/05/23 11:58 15:47 17:15 MCV MCH MCHC RDW Plt Count MPV Absolute Nucleated RBC Nucleated RBC % (auto) Anion Gap 11 L Estim Creat Clear Calc 123.8 Estimated GFR > 60 POC Glucose 172 H 179 H Random Glucose 166 H Calcium 8.3 L Random Vancomycin 03/05/23 03/06/23 03/06/23 20:52 00:23 05:36 MCV MCH MCHC RDW Plt Count MPV Absolute Nucleated RBC Nucleated RBC % (auto) Anion Gap Estim Creat Clear Calc Estimated GFR POC Glucose 207 H 139 H Random Glucose Calcium Random Vancomycin 12.0 L 03/06/23 03/06/23 03/06/23 06:17 06:17 06:17 MCV 83.2 MCH 27.0 MCHC 32.5 RDW 16.8 H Plt Count 366 MPV 10.0 Absolute Nucleated RBC 0.000 Nucleated RBC % (auto) 0.0 Anion Gap 10 L Estim Creat Clear Calc 136.4 146.4 Estimated GFR > 60 > 60 POC Glucose Random Glucose 174 H Calcium 7.9 L Random Vancomycin 03/06/23 07:48 MCV MCH MCHC RDW Plt Count MPV Absolute Nucleated RBC Nucleated RBC % (auto) Anion Gap Estim Creat Clear Calc Estimated GFR POC Glucose 191 H Random Glucose Calcium Random Vancomycin Procedures Date of Service Date of Service: 03/06/23 Progress Note: A&P Assessment and plan (1) Volvulus of sigmoid colon: Status: Acute (2) S/P colectomy: Status: Acute Plan Abdominal binder over abdomen to prevent patient from handling his ostomy. Out of bed, incentive spirometry, pulmonary therapy, physical therapy if patient is able. Time Spent With Patient Time: Total time managing care of this patient today ____ minutes. Quality Stroke Does the patient have a stroke diagnosis?: No VTE Prior VTE?: No VTE Risk Level:: Medical - moderate - high VTE Device Contraindication: Treatment Not Indicated VTE Drug Contraindication: N/A - Med Ordered
[2023-03-06] MEDS: Amiodarone HCL 200 MG TABLET 400 MG G-TUBE ×2 (08:41→21:34)
[2023-03-06] MEDS: Apixaban 5 MG TABLET PO (08:42)
[2023-03-06] MEDS: Sodium Bicarbonate 650 MG TABLET NG-TUBE ×2 (08:42→21:34)
[2023-03-06] MEDS: Potassium Chloride Packet 20 MEQ PACKET 40 MEQ G-TUBE ×2 (08:42→22:01)
--- NOTE | 2023-03-06 10:23 | MHC.CM.PN ---
Per ROUNDS discussion, Patient is bleeding around the ostomy site and he is not yet medically cleared for dc;Returning to LTC @ [facility] is the plan and CM will continue to follow.
--- NOTE | 2023-03-06 10:35 | MHC.CLN ---
F/U NGT REMAINS IN PLACE PT RECEIVING TF GLUCERNA AT MAX GOAL RATE 95ML/HR WITH 120ML FWF Q 6 HRS PROVIDES 2280KCALS (28KCALS/KG), 95G PROTEIN (1.2G/KG), 2425ML TOTAL FROM FORMULA AND FLUSHES (30ML/KG) TOLERATING WELL PER NSG MONITOR TOLERANCE, RESIDUALS AND LYTES
[2023-03-06 11:29] VITALS: BP 101/55; PULSE 86; RESP 20; TEMP 36.3; O2SAT 97
[2023-03-06 11:49] LABS: Glucose, Whole Blood 213 mg/dL (60-115)
[2023-03-06] MEDS: vancomycin HCL 1,500 MG in 0.9 % Sodium Chloride 500 ML 333.3 MG IV (12:36)
--- NOTE | 2023-03-06 13:46 | MHC.SL.SWA ---
Speech Pathologist Impression: Risk of aspiration, oropharyngeal dysphagia Risk of Aspiration Due to: Lethargy Neurological Condition Dysphasia Diet Status: Pt coughing on trace ice chips. Weak cough and throat clear. Per RN, no gag reflex. Recommend NPO at this time. Pt has NGT, reportedly is tolerating TFs. OPTOMETRIST ASSISTANT communicated these observations and recommendations w/ RN and MD via [place] Message. Liquid Consistency and Strategies for Safe Swallow: Liquid Intake Recommendation: NPO Solid Food Consistency: Dietary Recommendations: NPO Oral Medication Intake: NPO Please contact the pharmacy regarding appropriate crushable or liquid drug formulations that are available whenever modified delivery is recommended. Supervision While Eating and Drinking for Safe Swallow: PO with OPTOMETRIST ASSISTANT Swallowing Recommended Treatments: Compens. Strategy Educat. Recommendation for Speech: Inpatient Speech Therapy B[employer]ader Clinican/Clinical Fellow: No Supervisory Statement: I have reviewed and agree with the student/clinical fellow's documentation: N/A Speech Language Pathologist: Jesika Diaz M.A., CCC-OPTOMETRIST ASSISTANT
[2023-03-06 14:38] LABS: Hematocrit 24.6 % (42.0-52.0); Hemoglobin 7.7 g/dl (14.0-18.0)
--- NOTE | 2023-03-06 15:19 | HO.PM.IMPN ---
Subjective Subjective Date of Service: 03/06/23 Interval History: Patient awake alert, pleasantly confused, verbalizes, do not make sense, noted to have intermittent which congested cough unable to bring up phlegm, noted to have significant blood in colostomy bag, patient unable to provide meaningful history regarding pain, hemodynamically stable noted to have drop in hemoglobin/hct. Review of Systems Unable to obtain due to mental status. Physical Exam Vital Signs: Vital Signs: Last Vital Signs Temp 97.4 F 03/06/23 11:29 Pulse 86 03/06/23 11:29 Resp 20 03/06/23 11:29 BP 101/55 L 03/06/23 11:29 Pulse Ox 97 03/06/23 11:29 O2 Del Method Room Air 03/06/23 11:29 O2 Flow Rate 2 02/23/23 15:21 Oxygen Flow Rate 2 02/23/23 05:00 BMI result Body Mass Index 24.7 Const: Other: Constitutional : Awake alert, not in distress Neck : Normal inspection, Supple, NG tube in place Cardiovascular : irregular irregular, tachycardia, no JVD Respiratory : good bilateral air entry,? basal crackles Gastrointestinal:? soft, bowel sounds audible , Non tender, Ostomy bag filled with fresh blood , Tube feed running through NG Skin : Warm, Dry Extremities no lower extremity edema Neurological : awake, disoriented, No focal deficit Objective Data Active Medications Acetaminophen (Acetaminophen 325 Mg Tablet) 650 mg PO Q8H PRN PRN Reason: fever Last Admin: 03/02/23 05:42 Dose: 650 mg Documented By: SARAH Albuterol/Ipratropium (Albuterol/Iprat 2.5/0.5mg 3 Ml Ampul.Neb) 3 ml INHALE RQ4H PRN PRN Reason: Shortness of Breath/Wheezing Last Admin: 03/02/23 00:44 Dose: 3 ml Documented By: ADONAY Amiodarone HCl (Amiodarone Hcl 200 Mg Tablet) 400 mg G-TUBE BID [facility] Last Admin: 03/06/23 08:41 Dose: 400 mg Documented By: MICHAEL Benzonatate (Benzonatate 100 Mg Capsule) 200 mg PO TID PRN PRN Reason: Cough Clozapine (Clozapine 25 Mg Tablet) 50 mg PO BEDTIME [facility] Last Admin: 03/05/23 22:08 Dose: 50 mg Documented By: MED Dextrose (Dextrose 50 % 25 Gm/50 Ml Syringe) 25 gm IVPUSH Q15M PRN; Protocol PRN Reason: per Hypoglycemia Standing Ord. Last Admin: 02/21/23 07:53 Dose: 25 gm Documented By: PORTIA Comments: bg 67 Glucose (Glucose Gel 15 Gm Gel..Gram.) 15 gm PO Q15M PRN; Protocol PRN Reason: per Hypoglycemia Standing Ord. Ampicillin Sodium/Sulbactam (Sodium 3 gm/ Sodium Chloride) 100 mls @ 200 mls/hr IV Q8H [facility] Last Infusion: 03/06/23 13:45 Dose: 0 mls/hr Documented By: MICHAEL Caspofungin 50 mg/ Sodium (Chloride) 250 mls @ 250 mls/hr IV Q24H [facility] Last Infusion: 03/05/23 18:03 Dose: 0 mls/hr Documented By: MP Vancomycin HCl 1,500 mg/ (Sodium Chloride) 500 mls @ 333.333 mls/hr IV Q12H [facility] Last Infusion: 03/06/23 14:20 Dose: 0 mls/hr Documented By: MICHAEL Insulin Human Lispro (Insulin Lispro 100 Unit/Ml 3 Ml Vial) 0 unit SUBCUT Q6H [facility]; Protocol Last Admin: 03/06/23 12:37 Dose: 4 unit Documented By: MICHAEL Levothyroxine Sodium (Levothyroxine Sodium 75 Mcg Tablet) 75 mcg PO DAILY@0600 [facility] Last Admin: 03/06/23 05:40 Dose: 75 mcg Documented By: ANTOIC Melatonin (Melatonin 3 Mg Tablet) 6 mg PO BEDTIME PRN PRN Reason: Insomnia Pharmacy Consult (Consult Rx Perform Med Rec) 1 each MISCELLANE ONCE PRN PRN Reason: Consult order Pharmacy Consult (Consult Rx Vancomycin Dosing) 1 each MISCELLANE DAILY PRN PRN Reason: Consult order Polyethylene Glycol (Polyethylene Glycol 3350 17 Gm Powd.Pack) 17 gm G-TUBE DAILY [facility] Last Admin: 03/06/23 08:42 Dose: Not Given Documented By: MICHAEL Non-Admin Reason: pt has liquid stool Potassium Chloride (Potassium Chloride Packet 20 Meq Packet) 40 meq G-TUBE BID [facility] Last Admin: 03/06/23 08:42 Dose: 40 meq Documented By: MICHAEL Sodium Bicarbonate (Sodium Bicarbonate 650 Mg Tablet) 650 mg NG-TUBE BID [facility] Last Admin: 03/06/23 08:42 Dose: 650 mg Documented By: MICHAEL Sodium Chloride (0.9 % Sodium Chloride Flush 3 Ml Syringe) 3 ml IVFLUSH QSHIFT [facility] Last Admin: 03/06/23 08:43 Dose: 3 ml Documented By: MICHAEL Labs 03/06/23 14:24 03/06/23 06:17 Labs: Laboratory Results - last 24 hr 03/05/23 03/05/23 03/05/23 15:47 17:15 20:52 MCV MCH MCHC RDW Plt Count MPV Absolute Nucleated RBC Nucleated RBC % (auto) Anion Gap 11 L Estim Creat Clear Calc 123.8 Estimated GFR > 60 POC Glucose 179 H Random Glucose 166 H Calcium 8.3 L Random Vancomycin 12.0 L 03/06/23 03/06/23 03/06/23 00:23 05:36 06:17 MCV MCH MCHC RDW Plt Count MPV Absolute Nucleated RBC Nucleated RBC % (auto) Anion Gap Estim Creat Clear Calc 136.4 Estimated GFR > 60 POC Glucose 207 H 139 H Random Glucose Calcium Random Vancomycin 03/06/23 03/06/23 03/06/23 06:17 06:17 07:48 MCV 83.2 MCH 27.0 MCHC 32.5 RDW 16.8 H Plt Count 366 MPV 10.0 Absolute Nucleated RBC 0.000 Nucleated RBC % (auto) 0.0 Anion Gap 10 L Estim Creat Clear Calc 146.4 Estimated GFR > 60 POC Glucose 191 H Random Glucose 174 H Calcium 7.9 L Random Vancomycin 03/06/23 11:46 MCV MCH MCHC RDW Plt Count MPV Absolute Nucleated RBC Nucleated RBC % (auto) Anion Gap Estim Creat Clear Calc Estimated GFR POC Glucose 213 H Random Glucose Calcium Random Vancomycin Assessment and Plan (1) Candidal urinary tract infection: Status: Acute (2) Metabolic acidosis: Status: Acute (3) Adverse effect of clozapine: Status: Acute (4) Intravascular volume depletion: Status: Acute (5) Hypoalbuminemia: Status: Acute (6) Hypophosphatemia: Status: Acute (7) Severe sepsis: Status: Acute (8) Pneumonia: Status: Acute (9) Paroxysmal atrial fibrillation: Status: Acute (10) Swallowing problem: Status: Acute Plan 62M PMH CAD s/p CABG, paroxysmal afib, COPD, DM2, paranoid schizophrenia, hypothyroid, [facility] presented with abdominal pain, distension, hypoxia. Toxic metabolic encephalopathy Awake could be 2/2 infection, medications, hypernatremia Treat with Abx for 1 week per ID Dose of Clozapine decreased from 200 to 50 Dysphagia Seen by speech therapy they recommend NPO due to very weak cough and noted to have cough with ice chips and did not clear focal wetness. At baseline patient was tolerating regular diet with thin liquids, cause of dysphagia likely weakness. Currently receiving NG feedings, keep him NPO , spoke with patient's brother Ke Shetty and discussed alternate nutrition he agreed for G-tube placement Acute GI bleed noted in ostomy output Evaluated by General surgery small amount of oozing noted from epiploica of ostomy. Cauterization with silver nitrate done, pressure and then a 3-0 polysorb ligate suture was placed. Good hemostasis achieved. Transfuse 1 unit of packed RBC hematocrit , hold Eliquis , obtain consent for blood transfusion from guardian Metabolic acidosis w Anion gap Gap closed, acidosis Likely 2/2 Ostomy output, dehydration, fasting status s/p [id number] drip, continue PO Sodium bicarb Nephrology consult appreciated Follow BMP Constipation CT abdomen showed large amount of stool burden on Miralax, dc Senna Acute hypernatremia 2/2 dehydration Na normalized continue water bolus through NG tube Moderate protein malnutrition NG tube w tube feeding for now , seen by speech therapy they recommended NPO, spoke with guardian he wishes for G-tube placement paroxysmal afib with rvr better controlled on PO Metoprolol and amiodarone PO 400 mg bid hold Eliquis due to GI bleed Cardiology input appreciated Sepsis 2/2 Pneumonia and Candidal UTI Seen on CXR Blood cx negative On broad spectrum of Vancomycin and Unasyn and IV Caspofungen (1 week per ID eval) is started on 03/02 acute sigmoid volvulus Status post exploratory laparotomy, detorsion of sigmoid volvulus, sigmoid resection, end colostomy, Hafsa's pouch. On 02/23 POD #11 Ostomy functioning Started on Tube feed for low PO intake surgery following, Dr Mensah. severe sepsis and acute hypoxic respiratory failure and acute metabolic encephalopathy due to aspiration pneumonia Early during admission, Hypoxia resolved Finished 10 days of Zosyn Hypokalemia Resolved, give replacement and follow BMP DM Blood sugar in 200 range insulin CAD asa, statin hypothryoid synthroid paranoid schizophrenia clozaril dvt prophylaxis Hold Eliquis due to acute GI bleed/ on compression boots full code reason for continued hospitalization: awaiting return of gi function and tolerance to PO diet Time Spent With Patient Time: Total time managing care of this patient today ____ minutes. Quality Stroke Does the patient have a stroke diagnosis?: No VTE Prior VTE?: No VTE Risk Level:: Medical - moderate - high VTE Device Contraindication: Treatment Not Indicated VTE Drug Contraindication: N/A - Med Ordered
[2023-03-06 15:41] VITALS: BP 100/56; PULSE 92; RESP 20; TEMP 37.2; O2SAT 95
[2023-03-06 16:20] LABS: Glucose, Whole Blood 192 mg/dL (60-115)
--- NOTE | 2023-03-06 17:27 | PC.NURSE ---
Pt alert to self and place. More drowsy today but easily arousable sitter at bedside during shift for safety. Denies pain. LS rhonchi all davila suction provided for secretions pt very little gag reflex. Pt encouraged to cough with good results. BS+X4 dressing to mid abdomen CDI. Colostomy bag with reji blood and clots noted this am Dr Mensah notified on unit to see patient. PA at bedside treated stoma and appliance changed at this time continues with some reji bleeding to site. Continues tube feeds via NG tube tolerating well. IV antibiotics per order. Seen by ST remains strict NPO. Concerns addressed with Dr Arguello about possible need for PEG tube. Labs drawn in afternoon and reported results to Dr Arguello. Type and screen drawn awaiting blood for administration. Will continue to monitor and report changes
[2023-03-06] MEDS: Caspofungin Acetate 50 MG in 0.9 % Sodium Chloride 250 ML 250 MG IV (18:10)
[2023-03-06 18:48] LABS: Glucose, Whole Blood 182 mg/dL (60-115)
[2023-03-06 19:35] VITALS: BP 103/79; PULSE 84; RESP 20; TEMP 36.8; O2SAT 97
[2023-03-06] MEDS: cloZAPine 25 MG TABLET 50 MG PO (22:00)
--- NOTE | 2023-03-06 23:34 | PC.NURSE ---
PT TO GET I UNIT OF LRBC'S. HE HAS 3 IV SITES BUT ALL 3 ARE #[id number]. ATTEMPTED TO START A LARGER IV ANGIO BUT UNSUCCESSFUL. DR BETANCOURT NOTIFIED AND PERMISSION GIVEN TO ADMINISTER THE BLOOD VIA THE #22 ANGIO.
[2023-03-06 23:40] VITALS: BP 101/58; PULSE 84; RESP 18; TEMP 36.8; O2SAT 95
[2023-03-07] VITALS (8 sets, daily range): BP systolic 101–117; BP diastolic 55–74; PULSE 77–86; RESP 16–22; TEMP 36.3–37.2; O2SAT 95–97
[2023-03-07 00:10] LABS: Glucose, Whole Blood 202 mg/dL (60-115)
[2023-03-07] MEDS: vancomycin HCL 1,500 MG in 0.9 % Sodium Chloride 500 ML 333.33 MG IV ×2 (00:15→11:17)
[2023-03-07] MEDS: 0.9 % Sodium Chloride Flush 3 ML SYRINGE IVFLUSH ×2 (00:20→09:26)
[2023-03-07] MEDS: Insulin Lispro 100 UNIT/ML 3 ML VIAL SUBCUT ×4 (00:47→18:36)
[2023-03-07] MEDS: Ampicillin Sodium/Sulbactam Na 3 GM in 0.9 % Sodium Chloride 100 ML IV ×3 (03:18→20:56)
[2023-03-07 06:08] LABS: Glucose, Whole Blood 221 mg/dL (60-115)
[2023-03-07] MEDS: Levothyroxine Sodium 75 MCG TABLET PO (06:13)
[2023-03-07 06:28] LABS: Hematocrit 26.9 % (42.0-52.0); Hemoglobin 8.7 g/dl (14.0-18.0); Mean Corpuscular HGB Conc 32.3 g/dl (31.0-36.0); Mean Corpuscular Hemoglobin 27.2 pg (27.0-33.0); Mean Corpuscular Volume 84.1 fL (80.0-98.0); Mean Platelet Volume 9.9 fL (9.4-12.4); NRBC Pct Auto 0.3 /100WBC (0.0-0.2); Platelet Count 336 X10*3/uL (160-400); Red Cell Distribution Width 16.2 % (11.0-16.0); White Blood Count 7.8 X10*3/uL (4.8-10.8)
--- NOTE | 2023-03-07 06:43 | PC.NURSE ---
ASSUMED CARE OF PT AT 1900. PT CALM, CONFUSED, UNABLE TO FOLLOW DIRECTIONS. PT IS VERY WEAK. VITAL SIGNS STABLE. NONITOR SHOWS NSR, RATE 80'S. AFEBRILE. VANCO TROUGH AT 2100 WAS 15. RECEIVED VANCO AND AMPICILLIN IV. ONE UNIT OF LRBC'S GIVEN OVERNIGHT. COLOSTOMY LEFT SIDE DRAINED 100 ML BLOODY OUTPUT. MIDLINE ABD DSG IS D&I. NGT LEFT NARE WITH TUBE FEEDS AT MAX RATE. PT TOLERATING TUBE FEEDS WELL. LARGE FOAM DSG IS D&I ON COXXYX AND FOAM DSG TO BILAT HEELS INTACT.
[2023-03-07 06:47] LABS: Anion Gap 11 (12-20); Blood Urea Nitrogen 7 mg/dL (9-16); Calcium 8.4 mg/dL (8.4-10.2); Carbon Dioxide 22 mmol/L (22-29); Chloride 113 mmol/L (96-108); Creatinine Clr Calc Pharmacy 113.4; Estimated Glomerular Filt Rate > 60; Glucose Random 233 mg/dL (60-115); Potassium 3.6 mmol/L (3.3-5.1); Sodium 142 mmol/L (135-145)
[2023-03-07] MEDS: Sodium Bicarbonate 650 MG TABLET NG-TUBE ×2 (09:25→21:13)
[2023-03-07] MEDS: polyethylene glycoL 3350 17 GM POWD.PACK G-TUBE (09:25)
[2023-03-07] MEDS: Potassium Chloride Packet 20 MEQ PACKET 40 MEQ G-TUBE ×2 (09:25→21:13)
[2023-03-07] MEDS: Amiodarone HCL 200 MG TABLET 400 MG G-TUBE ×2 (09:25→21:14)
[2023-03-07 12:02] LABS: Glucose, Whole Blood 206 mg/dL (60-115)
--- NOTE | 2023-03-07 15:34 | HO.PM.IMPN ---
Subjective Subjective Date of Service: 03/08/23 Interval History: Awake alert, unable to obtain meaningful history due to history of paranoid schizophrenia and unspecified dementia, patient noted to have intermittent wet cough unable to clear throat, tolerating NG feeds. Review of Systems Unable to obtain review of system due to mental status Physical Exam Vital Signs: Vital Signs: Last Vital Signs Temp 98.6 F 03/07/23 12:00 Pulse 83 03/07/23 12:00 Resp 18 03/07/23 12:00 BP 111/55 L 03/07/23 12:00 Pulse Ox 95 03/07/23 12:00 O2 Del Method Room Air 03/07/23 12:00 O2 Flow Rate 2 03/07/23 08:00 Oxygen Flow Rate 2 02/23/23 05:00 BMI result Body Mass Index 24.7 Const: Other: Constitutional :? Awake alert, not in distress Neck : Normal inspection, Supple, NG tube in place Cardiovascular : irregular irregular, tachycardia, no JVD Respiratory : good bilateral air entry,? basal crackles Gastrointestinal:? soft,? bowel sounds audible , Non tender, Ostomy bag filled with brown liquid no fresh blood, Tube feed running through NG Skin : Warm, Dry Extremities no lower extremity edema Neurological : awake, disoriented, No focal deficit Objective Data Active Medications Acetaminophen (Acetaminophen 325 Mg Tablet) 650 mg PO Q8H PRN PRN Reason: fever Last Admin: 03/02/23 05:42 Dose: 650 mg Documented By: SARAH Albuterol/Ipratropium (Albuterol/Iprat 2.5/0.5mg 3 Ml Ampul.Neb) 3 ml INHALE RQ4H PRN PRN Reason: Shortness of Breath/Wheezing Last Admin: 03/02/23 00:44 Dose: 3 ml Documented By: ADONAY Amiodarone HCl (Amiodarone Hcl 200 Mg Tablet) 400 mg G-TUBE BID [facility] Last Admin: 03/07/23 09:25 Dose: 400 mg Documented By: MICHAEL Benzonatate (Benzonatate 100 Mg Capsule) 200 mg PO TID PRN PRN Reason: Cough Clozapine (Clozapine 25 Mg Tablet) 50 mg PO BEDTIME [facility] Last Admin: 03/06/23 22:00 Dose: 50 mg Documented By: PHAN Dextrose (Dextrose 50 % 25 Gm/50 Ml Syringe) 25 gm IVPUSH Q15M PRN; Protocol PRN Reason: per Hypoglycemia Standing Ord. Last Admin: 02/21/23 07:53 Dose: 25 gm Documented By: PORTIA Comments: bg 67 Glucose (Glucose Gel 15 Gm Gel..Gram.) 15 gm PO Q15M PRN; Protocol PRN Reason: per Hypoglycemia Standing Ord. Ampicillin Sodium/Sulbactam (Sodium 3 gm/ Sodium Chloride) 100 mls @ 200 mls/hr IV Q8H [facility] Last Infusion: 03/07/23 12:32 Dose: 0 mls/hr Documented By: MICHAEL Caspofungin 50 mg/ Sodium (Chloride) 250 mls @ 250 mls/hr IV Q24H [facility] Last Infusion: 03/06/23 22:45 Dose: 0 mls/hr Documented By: PHAN Vancomycin HCl 1,500 mg/ (Sodium Chloride) 500 mls @ 333.333 mls/hr IV Q12H [facility] Last Infusion: 03/07/23 13:00 Dose: 0 mls/hr Documented By: MICHAEL Insulin Human Lispro (Insulin Lispro 100 Unit/Ml 3 Ml Vial) 0 unit SUBCUT Q6H [facility]; Protocol Last Admin: 03/07/23 12:10 Dose: 4 unit Documented By: MICHAEL Levothyroxine Sodium (Levothyroxine Sodium 75 Mcg Tablet) 75 mcg PO DAILY@0600 [facility] Last Admin: 03/07/23 06:13 Dose: 75 mcg Documented By: PHAN Melatonin (Melatonin 3 Mg Tablet) 6 mg PO BEDTIME PRN PRN Reason: Insomnia Pharmacy Consult (Consult Rx Perform Med Rec) 1 each MISCELLANE ONCE PRN PRN Reason: Consult order Pharmacy Consult (Consult Rx Vancomycin Dosing) 1 each MISCELLANE DAILY PRN PRN Reason: Consult order Polyethylene Glycol (Polyethylene Glycol 3350 17 Gm Powd.Pack) 17 gm G-TUBE DAILY [facility] Last Admin: 03/07/23 09:25 Dose: 17 gm Documented By: MICHAEL Potassium Chloride (Potassium Chloride Packet 20 Meq Packet) 40 meq G-TUBE BID [facility] Last Admin: 03/07/23 09:25 Dose: 40 meq Documented By: MICHAEL Sodium Bicarbonate (Sodium Bicarbonate 650 Mg Tablet) 650 mg NG-TUBE BID [facility] Last Admin: 03/07/23 09:25 Dose: 650 mg Documented By: MICHAEL Sodium Chloride (0.9 % Sodium Chloride Flush 3 Ml Syringe) 3 ml IVFLUSH QSHIFT [facility] Last Admin: 03/07/23 09:26 Dose: 3 ml Documented By: MICHAEL Labs 03/07/23 06:10 03/07/23 06:10 Labs: Laboratory Results - last 24 hr 03/06/23 03/06/23 03/06/23 15:50 16:16 17:52 MCV MCH MCHC RDW Plt Count MPV Absolute Nucleated RBC Nucleated RBC % (auto) Anion Gap Estim Creat Clear Calc Estimated GFR POC Glucose 192 H Random Glucose Calcium Random Vancomycin 20.0 Blood Type O Positive Antibody Screen NEGATIVE Crossmatch See Detail 03/06/23 03/06/23 03/07/23 18:45 20:49 00:07 MCV MCH MCHC RDW Plt Count MPV Absolute Nucleated RBC Nucleated RBC % (auto) Anion Gap Estim Creat Clear Calc Estimated GFR POC Glucose 182 H 202 H Random Glucose Calcium Random Vancomycin 15.0 Blood Type Antibody Screen Crossmatch 03/07/23 03/07/23 03/07/23 06:04 06:10 06:10 MCV 84.1 MCH 27.2 MCHC 32.3 RDW 16.2 H Plt Count 336 MPV 9.9 Absolute Nucleated RBC 0.020 H Nucleated RBC % (auto) 0.3 H Anion Gap 11 L Estim Creat Clear Calc 113.4 Estimated GFR > 60 POC Glucose 221 H Random Glucose 233 H Calcium 8.4 D Random Vancomycin Blood Type Antibody Screen Crossmatch 03/07/23 11:57 MCV MCH MCHC RDW Plt Count MPV Absolute Nucleated RBC Nucleated RBC % (auto) Anion Gap Estim Creat Clear Calc Estimated GFR POC Glucose 206 H Random Glucose Calcium Random Vancomycin Blood Type Antibody Screen Crossmatch Microbiology Microbiology Results: Microbiology 03/02/23 08:16 Blood Culture - Final Blood - Venous No growth after 5 days. 03/02/23 08:16 Blood Culture - Final Blood - Venous No growth after 5 days. Assessment and Plan (1) Candidal urinary tract infection: Status: Acute (2) Metabolic acidosis: Status: Acute (3) Adverse effect of clozapine: Status: Acute (4) Intravascular volume depletion: Status: Acute (5) Hypoalbuminemia: Status: Acute (6) Hypophosphatemia: Status: Acute (7) Severe sepsis: Status: Acute (8) Pneumonia: Status: Acute (9) Paroxysmal atrial fibrillation: Status: Acute (10) Swallowing problem: Status: Acute Plan 62M PMH CAD s/p CABG, paroxysmal afib, COPD, DM2, paranoid schizophrenia, hypothyroid, from [facility] presented with abdominal pain, distension, hypoxia. Toxic metabolic encephalopathy Likely at baseline now, Awake awake verbalizing not making sense, following commands, moving all 4 extremities Treat with Abx for 1 week per ID Dose of Clozapine decreased from 200 to 50 mg was likely contributing to somnolent Dysphagia Seen by speech therapy they recommend NPO due to very weak cough and noted to have cough with ice chips and did not clear focal wetness. now with persistent wet cough At baseline patient was tolerating regular diet with thin liquids, cause of dysphagia likely weakness. Currently receiving NG feedings, keep him NPO , spoke with patient's brother Ke Shetty and discussed alternate nutrition he agreed for G-tube placement , will consult General surgery for tube placement Acute GI bleed noted in ostomy output 03/06 Evaluated by General surgery small amount of oozing noted from epiploica of ostomy. Cauterization with silver nitrate done, and suture placed, no recurrent bleeding noted Transfuse 1 unit of packed RBC hematocrit , hold Eliquis , obtain consent for blood transfusion from guardian Metabolic acidosis w Anion gap Gap closed, acidosis Likely 2/2 Ostomy output, dehydration, fasting status s/p [id number] drip, continue PO Sodium bicarb Nephrology consult appreciated Follow BMP Constipation CT abdomen showed large amount of stool burden on Miralax, dc Senna Acute hypernatremia 2/2 dehydration Na normalized continue water bolus through NG tube Moderate protein malnutrition NG tube w tube feeding for now , seen by speech therapy they recommended NPO, spoke with guardian he wishes for G-tube placement paroxysmal afib with rvr better controlled on PO Metoprolol and amiodarone PO 400 mg bid hold Eliquis due to GI bleed Cardiology input appreciated Sepsis 2/2 Pneumonia and Candidal UTI Seen on CXR Blood cx negative On broad spectrum of Vancomycin and Unasyn and IV Caspofungen (1 week per ID eval) is started on 03/02 acute sigmoid volvulus Status post exploratory laparotomy, detorsion of sigmoid volvulus, sigmoid resection, end colostomy, Hafsa's pouch. On 02/23 Ostomy functioning Started on Tube feed for low PO intake surgery following, Dr Mensah. severe sepsis and acute hypoxic respiratory failure and acute metabolic encephalopathy due to aspiration pneumonia Early during admission, Hypoxia resolved Finished 10 days of Zosyn Hypokalemia Resolved, give replacement and follow BMP DM Blood sugar in 200 range insulin CAD asa, statin hypothryoid synthroid paranoid schizophrenia clozaril dvt prophylaxis Hold Eliquis due to acute GI bleed and for possible G-tube placement/ on compression boots full code reason for continued hospitalization: awaiting return of gi function and tolerance to PO diet Time Spent With Patient Time: Total time managing care of this patient today ____ minutes. Quality Stroke Does the patient have a stroke diagnosis?: No VTE Prior VTE?: No VTE Risk Level:: Medical - moderate - high VTE Device Contraindication: Treatment Not Indicated VTE Drug Contraindication: N/A - Med Ordered
[2023-03-07] MEDS: Caspofungin Acetate 50 MG in 0.9 % Sodium Chloride 250 ML 250 MG IV (17:51)
[2023-03-07 18:33] LABS: Glucose, Whole Blood 225 mg/dL (60-115)
[2023-03-07 19:33] LABS: Glucose, Whole Blood 214 mg/dL (60-115)
[2023-03-07] MEDS: cloZAPine 25 MG TABLET 50 MG PO (21:14)
[2023-03-08] VITALS (7 sets, daily range): BP systolic 91–127; BP diastolic 55–72; PULSE 83–93; RESP 16–20; TEMP 36.2–37.6; O2SAT 95–97
[2023-03-08 00:45] LABS: Glucose, Whole Blood 228 mg/dL (60-115)
[2023-03-08] MEDS: vancomycin HCL 1,500 MG in 0.9 % Sodium Chloride 500 ML 333.3 MG IV ×3 (01:35→22:05)
[2023-03-08] MEDS: 0.9 % Sodium Chloride Flush 3 ML SYRINGE IVFLUSH ×4 (01:36→20:46)
[2023-03-08] MEDS: Insulin Lispro 100 UNIT/ML 3 ML VIAL SUBCUT ×5 (01:37→23:47)
[2023-03-08] MEDS: Ampicillin Sodium/Sulbactam Na 3 GM in 0.9 % Sodium Chloride 100 ML IV ×3 (03:36→20:44)
[2023-03-08 06:34] LABS: Glucose, Whole Blood 243 mg/dL (60-115)
[2023-03-08 06:39] LABS: Creatinine Clr Calc Pharmacy 111.8; Estimated Glomerular Filt Rate > 60
[2023-03-08] MEDS: Levothyroxine Sodium 75 MCG TABLET PO (07:50)
[2023-03-08] MEDS: polyethylene glycoL 3350 17 GM POWD.PACK G-TUBE (10:21)
[2023-03-08 11:25] LABS: Glucose, Whole Blood 217 mg/dL (60-115)
--- NOTE | 2023-03-08 14:52 | HO.PM.IMPN ---
Subjective Subjective Date of Service: 03/09/23 Interval History: no change in patient's clinical condition, awake alert following commands, patient pulled NG out partially, otherwise no other acute events overnight no further bleeding noted in colostomy bag. Review of Systems unable to obtain review of system done to mental status. Physical Exam Vital Signs: Vital Signs: Last Vital Signs Temp 98.2 F 03/08/23 11:59 Pulse 83 03/08/23 11:59 Resp 20 03/08/23 11:59 BP 103/62 03/08/23 11:59 Pulse Ox 97 03/08/23 11:59 O2 Del Method Room Air 03/08/23 11:59 O2 Flow Rate 2 03/07/23 08:00 Oxygen Flow Rate 2 02/23/23 05:00 BMI result Body Mass Index 24.7 Const: Other: Constitutional :? Awake alert, not i n distress Neck : Normal inspection, Supple, NG tube i n place Cardiovasc ular : irregular i rregular, tachycar crys, no JVD Respir atory : good bilat eral air entry,? b klarissa crackles Matthew rointestinal:? sof t,? bowel sounds a udible , Non tende r, Ostomy bag with no fresh blood, T ube feed running t hrough NG Skin : W arm, Dry. Extremit ies no lower extre mity edema Neurolo gical : awake, dis oriented, No focal deficit Objective Data Active Medications Acetaminophen (Acetaminophen 325 Mg Tablet) 650 mg PO Q8H PRN PRN Reason: fever Last Admin: 03/02/23 05:42 Dose: 650 mg Documented By: SARAH Albuterol/Ipratropium (Albuterol/Iprat 2.5/0.5mg 3 Ml Ampul.Neb) 3 ml INHALE RQ4H PRN PRN Reason: Shortness of Breath/Wheezing Last Admin: 03/02/23 00:44 Dose: 3 ml Documented By: ADONAY Amiodarone HCl (Amiodarone Hcl 200 Mg Tablet) 400 mg G-TUBE BID [facility] Last Admin: 03/08/23 14:36 Dose: Not Given Documented By: MICHAEL Non-Admin Reason: pulled NG tube Benzonatate (Benzonatate 100 Mg Capsule) 200 mg PO TID PRN PRN Reason: Cough Clozapine (Clozapine 25 Mg Tablet) 50 mg PO BEDTIME [facility] Last Admin: 03/07/23 21:14 Dose: 50 mg Documented By: IRINA Dextrose (Dextrose 50 % 25 Gm/50 Ml Syringe) 25 gm IVPUSH Q15M PRN; Protocol PRN Reason: per Hypoglycemia Standing Ord. Last Admin: 02/21/23 07:53 Dose: 25 gm Documented By: PORTIA Comments: bg 67 Glucose (Glucose Gel 15 Gm Gel..Gram.) 15 gm PO Q15M PRN; Protocol PRN Reason: per Hypoglycemia Standing Ord. Ampicillin Sodium/Sulbactam (Sodium 3 gm/ Sodium Chloride) 100 mls @ 200 mls/hr IV Q8H [facility] Last Infusion: 03/08/23 13:40 Dose: 0 mls/hr Documented By: MICHAEL Caspofungin 50 mg/ Sodium (Chloride) 250 mls @ 250 mls/hr IV Q24H [facility] Last Infusion: 03/07/23 21:00 Dose: 0 mls/hr Documented By: IRINA Vancomycin HCl 1,500 mg/ (Sodium Chloride) 500 mls @ 333.333 mls/hr IV Q12H [facility] Last Infusion: 03/08/23 14:36 Dose: 0 mls/hr Documented By: MICHAEL Insulin Human Lispro (Insulin Lispro 100 Unit/Ml 3 Ml Vial) 0 unit SUBCUT Q6H [facility]; Protocol Last Admin: 03/08/23 13:21 Dose: 4 unit Documented By: MICHAEL Levothyroxine Sodium (Levothyroxine Sodium 75 Mcg Tablet) 75 mcg PO DAILY@0600 [facility] Last Admin: 03/08/23 07:50 Dose: 75 mcg Documented By: IRINA Melatonin (Melatonin 3 Mg Tablet) 6 mg PO BEDTIME PRN PRN Reason: Insomnia Pharmacy Consult (Consult Rx Perform Med Rec) 1 each MISCELLANE ONCE PRN PRN Reason: Consult order Pharmacy Consult (Consult Rx Vancomycin Dosing) 1 each MISCELLANE DAILY PRN PRN Reason: Consult order Polyethylene Glycol (Polyethylene Glycol 3350 17 Gm Powd.Pack) 17 gm G-TUBE DAILY [facility] Last Admin: 03/08/23 10:21 Dose: 17 gm Documented By: MICHAEL Potassium Chloride (Potassium Chloride Packet 20 Meq Packet) 40 meq G-TUBE BID [facility] Last Admin: 03/08/23 14:37 Dose: Not Given Documented By: MICHAEL Non-Admin Reason: pulled NG tube Sodium Bicarbonate (Sodium Bicarbonate 650 Mg Tablet) 650 mg NG-TUBE BID [facility] Last Admin: 03/08/23 14:38 Dose: Not Given Documented By: MICHAEL Non-Admin Reason: pulled out NG tube Sodium Chloride (0.9 % Sodium Chloride Flush 3 Ml Syringe) 3 ml IVFLUSH QSHIFT [facility] Last Admin: 03/08/23 10:21 Dose: 3 ml Documented By: MICHAEL Labs 03/07/23 06:10 03/08/23 06:08 Labs: Laboratory Results - last 24 hr 03/07/23 03/07/23 03/08/23 18:29 19:29 00:41 Estim Creat Clear Calc Estimated GFR POC Glucose 225 H 214 H 228 H 03/08/23 03/08/23 03/08/23 06:08 06:27 11:21 Estim Creat Clear Calc 111.8 Estimated GFR > 60 POC Glucose 243 H 217 H Assessment and Plan (1) Candidal urinary tract infection: Status: Acute (2) Metabolic acidosis: Status: Acute (3) Adverse effect of clozapine: Status: Acute (4) Intravascular volume depletion: Status: Acute (5) Hypoalbuminemia: Status: Acute (6) Hypophosphatemia: Status: Acute (7) Severe sepsis: Status: Acute (8) Pneumonia: Status: Acute (9) Paroxysmal atrial fibrillation: Status: Acute (10) Swallowing problem: Status: Acute Plan 62M PMH CAD s/p CABG, paroxysmal afib, COPD, DM2, paranoid schizophrenia, hypothyroid, from [facility] presented with abdominal pain, distension, hypoxia. Toxic metabolic encephalopathy Awake alertt verbalizing not making sense, following commands, moving all 4 extremities, Will talk to patient's primary physician from [facility] regarding baseline mental status. Dose of Clozapine decreased from 200 to 50 mg was likely contributing to somnolence. Dysphagia Seen by speech therapy they recommend NPO due to very weak cough and noted to have cough with ice chips and unable to clear focal wetness. now with persistent wet cough. At baseline patient was tolerating regular diet with thin liquids, cause of dysphagia likely weakness,no neuro deficit noted. partially pulled NG tube today will replace and check chest x-ray for placement Currently receiving NG feedings, keep him NPO , spoke with patient's brother Ke Shetty and discussed alternate nutrition he agreed for G-tube placement , will consult General surgery for tube placement Acute GI bleed noted in ostomy output 03/06 Evaluated by General surgery small amount of oozing noted from epiploica of ostomy. Cauterization with silver nitrate done, and suture placed, no recurrent bleeding noted Transfuse 1 unit of packed RBC hematocrit , hold Eliquis , obtain consent for blood transfusion from guardian Metabolic acidosis w Anion gap Gap closed, bicarb normalized acidosis Likely 2/2 Ostomy output, dehydration, fasting status s/p [id number] drip, on PO Sodium bicarb Nephrology consult appreciated, Follow BMP Constipation CT abdomen showed large amount of stool burden,resolved, on Miralax, dc Senna Acute hypernatremia 2/2 dehydration Na normalized continue water bolus through NG tube Moderate protein malnutrition NG tube w tube feeding for now , seen by speech therapy they recommended NPO, spoke with guardian he wishes for G-tube placement , will consult General surgery for G-tube placement paroxysmal afib with rvr better controlled on PO Metoprolol and amiodarone PO 400 mg bid x 2 weeks than 200mg daily. hold Eliquis due to GI bleed. Cardiology input appreciated Sepsis 2/2 Pneumonia and Candidal UTI Seen on CXR Blood cx negative On broad spectrum of Vancomycin and Unasyn and IV Caspofungen (1 week per ID eval) is started on 03/02, will DC antibiotic after todays does acute sigmoid volvulus Status post exploratory laparotomy, detorsion of sigmoid volvulus, sigmoid resection, end colostomy, Hafsa's pouch. On 02/23 Ostomy functioning Started on Tube feed for low PO intake Dr Mensah following severe sepsis and acute hypoxic respiratory failure and acute metabolic encephalopathy due to aspiration pneumonia Early during admission, Hypoxia resolved Finished 10 days of Zosyn Hypokalemia Resolved, give replacement and follow BMP DM Blood sugar in 200 range insulin CAD asa, statin hypothryoid synthroid paranoid schizophrenia clozaril dvt prophylaxis Hold Eliquis due to acute GI bleed and for possible G-tube placement/ on compression boots full code reason for continued hospitalization: awaiting return of gi function and tolerance to PO diet Time Spent With Patient Time: Total time managing care of this patient today ____ minutes. Quality Stroke Does the patient have a stroke diagnosis?: No VTE Prior VTE?: No VTE Risk Level:: Medical - moderate - high VTE Device Contraindication: Treatment Not Indicated VTE Drug Contraindication: N/A - Med Ordered
[2023-03-08 17:40] LABS: Glucose, Whole Blood 177 mg/dL (60-115)
[2023-03-08] MEDS: Caspofungin Acetate 50 MG in 0.9 % Sodium Chloride 250 ML 250 MG IV (18:17)
--- NOTE | 2023-03-08 19:56 | PC.NURSE ---
Patient pulled NG tube half way out approx 1015 tube replaced unable to get morning meds, Dr Arguello notified and xray completed. No sitter at bedside at this time. Tube needed to be advanced farther per xray notified tube to left nare pulled and placed to right nare. Xray completed again and verified late afternoon, Per Dr Arguello ok to use NG tube. Tube feeding restarted. Colostomy leaking late afternoon area cleansed and appliance replaced. Pt continues with no gag reflex with suction. LS remain wet patient encouraged to cough suction provided orally as needed as tolerated. Continues IV antibiotics per order. Will continue to monitor and report changes
[2023-03-08] MEDS: Potassium Chloride Packet 20 MEQ PACKET 40 MEQ G-TUBE (20:45)
[2023-03-08] MEDS: Sodium Bicarbonate 650 MG TABLET NG-TUBE (20:45)
[2023-03-08] MEDS: cloZAPine 25 MG TABLET 50 MG PO (20:45)
[2023-03-08] MEDS: Amiodarone HCL 200 MG TABLET 400 MG G-TUBE (20:45)
[2023-03-08 22:06] LABS: Vancomycin Trough 17.8 mcg/mL (10.0-20.0)
[2023-03-08 23:32] LABS: Glucose, Whole Blood 176 mg/dL (60-115)
[2023-03-09] MEDS: OLANZapine 10 MG VIAL 5 MG IM ×2 (03:00→21:54)
[2023-03-09] MEDS: Ampicillin Sodium/Sulbactam Na 3 GM in 0.9 % Sodium Chloride 100 ML IV (03:00)
[2023-03-09 04:00] VITALS: BP 108/59; PULSE 87; RESP 18; TEMP 36.8; O2SAT 96
[2023-03-09] MEDS: Levothyroxine Sodium 75 MCG TABLET PO (06:20)
[2023-03-09 06:27] LABS: Glucose, Whole Blood 223 mg/dL (60-115)
[2023-03-09] MEDS: Insulin Lispro 100 UNIT/ML 3 ML VIAL SUBCUT ×3 (06:30→18:19)
[2023-03-09 07:10] VITALS: BP 99/57; PULSE 84; RESP 20; TEMP 37.2; O2SAT 96
[2023-03-09 07:15] LABS: Creatinine Clr Calc Pharmacy 92.5; Estimated Glomerular Filt Rate > 60
[2023-03-09] MEDS: polyethylene glycoL 3350 17 GM POWD.PACK G-TUBE (09:17)
[2023-03-09] MEDS: Amiodarone HCL 200 MG TABLET 400 MG G-TUBE ×2 (09:18→23:52)
[2023-03-09] MEDS: Potassium Chloride Packet 20 MEQ PACKET 40 MEQ G-TUBE ×2 (09:18→23:52)
[2023-03-09] MEDS: Sodium Bicarbonate 650 MG TABLET NG-TUBE ×2 (09:18→23:52)
[2023-03-09] MEDS: 0.9 % Sodium Chloride Flush 3 ML SYRINGE IVFLUSH ×3 (09:18→23:53)
--- NOTE | 2023-03-09 10:49 | MHC.CM.PN ---
Per ROUNDS discussion, Patient is not yet medically cleared for dc (getting a G-Tube today); returning to LTC is the goal and CM will continue to follow.
[2023-03-09 11:37] VITALS: BP 102/60; PULSE 82; RESP 20; TEMP 37; O2SAT 94
[2023-03-09 11:38] LABS: Glucose, Whole Blood 198 mg/dL (60-115)
--- NOTE | 2023-03-09 12:24 | P.PNGS_ITS ---
Subjective Subjective Date of Service: 03/09/23 Interval history: Patient has a combination of inability to swallow , chronic aspiration, and unable to maintain his nutrition. Physical Exam Vital Signs: Vital Signs: Last Vital Signs Temp 98.6 F 03/09/23 11:37 Pulse 82 03/09/23 11:37 Resp 20 03/09/23 11:37 BP 102/60 03/09/23 11:37 Pulse Ox 94 03/09/23 11:37 O2 Del Method Room Air 03/09/23 07:10 O2 Flow Rate 2 03/07/23 08:00 Oxygen Flow Rate 2 02/23/23 05:00 BMI result Body Mass Index 24.7 Const: Other: Patient obtunded , arousable, minimally communicative Chest: Other: Chest breath sounds bilaterally, HS 1 in 2 GI: Other: Abdomen soft. Incision clean dry and intact. Ostomy functioning well. Objective Data Active Medications Acetaminophen (Acetaminophen 325 Mg Tablet) 650 mg PO Q8H PRN PRN Reason: fever Last Admin: 03/02/23 05:42 Dose: 650 mg Documented By: SARAH Amiodarone HCl (Amiodarone Hcl 200 Mg Tablet) 400 mg G-TUBE BID [facility] Last Admin: 03/09/23 09:18 Dose: 400 mg Documented By: ARIANNAORRYesi Benzonatate (Benzonatate 100 Mg Capsule) 200 mg PO TID PRN PRN Reason: Cough Clozapine (Clozapine 25 Mg Tablet) 50 mg PO BEDTIME [facility] Last Admin: 03/08/23 20:45 Dose: 50 mg Documented By: MATHEUS Dextrose (Dextrose 50 % 25 Gm/50 Ml Syringe) 25 gm IVPUSH Q15M PRN; Protocol PRN Reason: per Hypoglycemia Standing Ord. Last Admin: 02/21/23 07:53 Dose: 25 gm Documented By: PORTIA Comments: bg 67 Glucose (Glucose Gel 15 Gm Gel..Gram.) 15 gm PO Q15M PRN; Protocol PRN Reason: per Hypoglycemia Standing Ord. Insulin Human Lispro (Insulin Lispro 100 Unit/Ml 3 Ml Vial) 0 unit SUBCUT Q6H [facility]; Protocol Last Admin: 03/09/23 06:30 Dose: 4 unit Documented By: MATHEUS Levothyroxine Sodium (Levothyroxine Sodium 75 Mcg Tablet) 75 mcg PO DAILY@0600 [facility] Last Admin: 03/09/23 06:20 Dose: 75 mcg Documented By: MATHEUS Melatonin (Melatonin 3 Mg Tablet) 6 mg PO BEDTIME PRN PRN Reason: Insomnia Polyethylene Glycol (Polyethylene Glycol 3350 17 Gm Powd.Pack) 17 gm G-TUBE DAILY [facility] Last Admin: 03/09/23 09:17 Dose: 17 gm Documented By: WILDER Potassium Chloride (Potassium Chloride Packet 20 Meq Packet) 40 meq G-TUBE BID [facility] Last Admin: 03/09/23 09:18 Dose: 40 meq Documented By: WILDER Sodium Bicarbonate (Sodium Bicarbonate 650 Mg Tablet) 650 mg NG-TUBE BID [facility] Last Admin: 03/09/23 09:18 Dose: 650 mg Documented By: WILDER Sodium Chloride (0.9 % Sodium Chloride Flush 3 Ml Syringe) 3 ml IVFLUSH QSHIFT [facility] Last Admin: 03/09/23 09:18 Dose: 3 ml Documented By: WILDER Labs 03/07/23 06:10 03/09/23 06:52 Labs: Laboratory Results - last 24 hr 03/08/23 03/08/23 03/08/23 17:36 21:12 23:28 Estim Creat Clear Calc Estimated GFR POC Glucose 177 H 176 H Vancomycin Trough 17.8 03/09/23 03/09/23 03/09/23 06:23 06:52 11:22 Estim Creat Clear Calc 92.5 Estimated GFR > 60 POC Glucose 223 H 198 H Vancomycin Trough Procedures Date of Service Date of Service: 03/09/23 Progress Note: A&P Assessment and plan (1) Swallowing problem: Status: Acute Plan Current plan is to arrange for G-tube placement on 03/11. The brother will be called for consent. Time Spent With Patient Time: Total time managing care of this patient today ____ minutes. Quality Stroke Does the patient have a stroke diagnosis?: No VTE Prior VTE?: No VTE Risk Level:: Medical - moderate - high VTE Device Contraindication: Treatment Not Indicated VTE Drug Contraindication: N/A - Med Ordered
--- NOTE | 2023-03-09 14:30 | MHC.CLN ---
F/U NGT REMAINS IN PLACE. SCHEDULED FOR PEG PLACEMENT 03/11. PT RECEIVING TF GLUCERNA AT MAX GOAL RATE 95ML/HR WITH 240ML FWF Q 6 HRS PROVIDES 2280KCALS (28KCALS/KG), 95G PROTEIN (1.2G/KG), 2905ML TOTAL FROM FORMULA AND FLUSHES (36ML/KG). FLUSH INCREASED PER MD ORDER 03/05/23. TOLERATING WELL PER NSG. MONITOR TOLERANCE, RESIDUALS AND LYTES.
[2023-03-09 15:02] VITALS: BP 103/75; PULSE 86; RESP 19; TEMP 36.7; O2SAT 97
--- NOTE | 2023-03-09 15:24 | HO.PM.IMPN ---
Subjective Subjective Date of Service: 03/10/23 Interval History: no change in patient's clinical condition, verbalizes not making sense appears weak follow commands, tolerating NG. Review of Systems unable to obtain review of system due to mental status Physical Exam Vital Signs: Vital Signs: Last Vital Signs Temp 98.0 F 03/09/23 15:02 Pulse 86 03/09/23 15:02 Resp 19 03/09/23 15:02 BP 103/75 03/09/23 15:02 Pulse Ox 97 03/09/23 15:02 O2 Del Method Room Air 03/09/23 15:02 O2 Flow Rate 2 03/07/23 08:00 Oxygen Flow Rate 2 02/23/23 05:00 BMI result Body Mass Index 24.7 Const: Other: Constitutional :? Awake alert, not in distress Neck : Normal inspection, Supple, NG tube in place Cardiovascular : irregular irregular Respiratory : good bilateral air entry,?few basal crackles Gastrointestinal:? soft,? bowel sounds audible , Non tender, Ostomy bag filled with brown stool, no blood, Tube feed running through NG Skin : Warm, Dry Extremities no lower extremity edema Neurological : awake, disoriented, No focal deficit Objective Data Active Medications Acetaminophen (Acetaminophen 325 Mg Tablet) 650 mg PO Q8H PRN PRN Reason: fever Last Admin: 03/02/23 05:42 Dose: 650 mg Documented By: SARAH Amiodarone HCl (Amiodarone Hcl 200 Mg Tablet) 400 mg G-TUBE BID [facility] Last Admin: 03/09/23 09:18 Dose: 400 mg Documented By: ARIANNAORRYesi Benzonatate (Benzonatate 100 Mg Capsule) 200 mg PO TID PRN PRN Reason: Cough Clozapine (Clozapine 25 Mg Tablet) 50 mg PO BEDTIME [facility] Last Admin: 03/08/23 20:45 Dose: 50 mg Documented By: MATHEUS Dextrose (Dextrose 50 % 25 Gm/50 Ml Syringe) 25 gm IVPUSH Q15M PRN; Protocol PRN Reason: per Hypoglycemia Standing Ord. Last Admin: 02/21/23 07:53 Dose: 25 gm Documented By: PORTIA Comments: bg 67 Glucose (Glucose Gel 15 Gm Gel..Gram.) 15 gm PO Q15M PRN; Protocol PRN Reason: per Hypoglycemia Standing Ord. Insulin Human Lispro (Insulin Lispro 100 Unit/Ml 3 Ml Vial) 0 unit SUBCUT Q6H [facility]; Protocol Last Admin: 03/09/23 12:25 Dose: 2 unit Documented By: WILDER Levothyroxine Sodium (Levothyroxine Sodium 75 Mcg Tablet) 75 mcg PO DAILY@0600 [facility] Last Admin: 03/09/23 06:20 Dose: 75 mcg Documented By: ADANJACKSON Melatonin (Melatonin 3 Mg Tablet) 6 mg PO BEDTIME PRN PRN Reason: Insomnia Polyethylene Glycol (Polyethylene Glycol 3350 17 Gm Powd.Pack) 17 gm G-TUBE DAILY [facility] Last Admin: 03/09/23 09:17 Dose: 17 gm Documented By: WILDER Potassium Chloride (Potassium Chloride Packet 20 Meq Packet) 40 meq G-TUBE BID [facility] Last Admin: 03/09/23 09:18 Dose: 40 meq Documented By: WILDER Sodium Bicarbonate (Sodium Bicarbonate 650 Mg Tablet) 650 mg NG-TUBE BID [facility] Last Admin: 03/09/23 09:18 Dose: 650 mg Documented By: WILDER Sodium Chloride (0.9 % Sodium Chloride Flush 3 Ml Syringe) 3 ml IVFLUSH QSHIFT [facility] Last Admin: 03/09/23 09:18 Dose: 3 ml Documented By: WILDER Labs 03/07/23 06:10 03/09/23 06:52 Labs: Laboratory Results - last 24 hr 03/08/23 03/08/23 03/08/23 17:36 21:12 23:28 Estim Creat Clear Calc Estimated GFR POC Glucose 177 H 176 H Vancomycin Trough 17.8 03/09/23 03/09/23 03/09/23 06:23 06:52 11:22 Estim Creat Clear Calc 92.5 Estimated GFR > 60 POC Glucose 223 H 198 H Vancomycin Trough Assessment and Plan (1) Candidal urinary tract infection: Status: Acute (2) Metabolic acidosis: Status: Acute (3) Adverse effect of clozapine: Status: Acute (4) Intravascular volume depletion: Status: Acute (5) Hypoalbuminemia: Status: Acute (6) Hypophosphatemia: Status: Acute (7) Severe sepsis: Status: Acute (8) Pneumonia: Status: Acute (9) Paroxysmal atrial fibrillation: Status: Acute (10) Swallowing problem: Status: Acute Plan 62M PMH CAD s/p CABG, paroxysmal afib, COPD, DM2, paranoid schizophrenia, hypothyroid, [facility] presented with abdominal pain, distension, hypoxia. Toxic metabolic encephalopathy Awake alert verbalizing not making sense, following commands, moving all 4 extremities, spoke with patient's primary physician from [facility] patient is not at his baseline previously he would communicate his needs and more awake alert. Dose of Clozapine decreased from 200 to 50 mg was likely contributing to somnolence. call patient's brother Ke Shetty to update him regarding patient's current clinical status and left message Dysphagia Seen by speech therapy they recommend NPO due to very weak cough and noted to have cough with ice chips and unable to clear focal wetness. now with persistent wet cough. At baseline patient was tolerating regular diet with thin liquids, cause of dysphagia likely weakness,no neuro deficit noted. partially pulled NG tube today will replace and check chest x-ray for placement Currently receiving NG feedings, keep him NPO , spoke with patient's brother Ke Shetty and discussed alternate nutrition he agreed for G-tube placement , spoke with Dr. Mensah he plans on G-tube placement on Thursday. Acute GI bleed noted in ostomy output 03/06 Evaluated by General surgery small amount of oozing noted from epiploica of ostomy. Cauterization with silver nitrate done, and suture placed, no recurrent bleeding noted Transfuse 1 unit of packed RBC hematocrit improved, continue to hold Eliquis follow CBC Metabolic acidosis w Anion gap Gap closed, bicarb normalized acidosis Likely 2/2 Ostomy output, dehydration, fasting status s/p [id number] drip, on PO Sodium bicarb seen by Nephrology , Follow BMP at a.m. Constipation CT abdomen showed large amount of stool burden,resolved, on Miralax, dc Senna Acute hypernatremia 2/2 dehydration Na normalized continue water bolus through NG tube Moderate protein malnutrition NG tube w tube feeding for now , seen by speech therapy they recommended NPO, spoke with guardian he wishes for G-tube placement , will consult General surgery for G-tube placement. requested speech therapy to continue with feeding trials. paroxysmal afib with rvr better controlled on PO Metoprolol and amiodarone PO 400 mg bid x 2 weeks than 200mg daily. hold Eliquis due to GI bleed and for peg placement. Cardiology input appreciated Sepsis 2/2 Pneumonia and Candidal UTI Seen on CXR Blood cx negative finished 1 week of Vancomycin, iv Unasyn and IV Caspofungen acute sigmoid volvulus Status post exploratory laparotomy, detorsion of sigmoid volvulus, sigmoid resection, end colostomy, Hafsa's pouch. On 02/23 Ostomy functioning Started on Tube feed for low PO intake Dr Mensah following severe sepsis and acute hypoxic respiratory failure and acute metabolic encephalopathy due to aspiration pneumonia Early during admission, Hypoxia resolved Finished 10 days of Zosyn Hypokalemia Resolved, give replacement and follow BMP DM Blood sugar in 200 range insulin CAD asa, statin hypothryoid synthroid paranoid schizophrenia clozaril dvt prophylaxis Hold Eliquis due to acute GI bleed and for possible G-tube placement/ on compression boots full code reason for continued hospitalization: awaiting return of gi function and tolerance to PO diet Time Spent With Patient Time: Total time managing care of this patient today ____ minutes. Quality Stroke Does the patient have a stroke diagnosis?: No VTE Prior VTE?: No VTE Risk Level:: Medical - moderate - high VTE Device Contraindication: Treatment Not Indicated VTE Drug Contraindication: N/A - Med Ordered
[2023-03-09 15:43] LABS: Glucose, Whole Blood 220 mg/dL (60-115)
[2023-03-09 18:17] LABS: Glucose, Whole Blood 227 mg/dL (60-115)
[2023-03-09 18:43] VITALS: BP 94/54; PULSE 87; RESP 17; TEMP 36.7; O2SAT 97
[2023-03-09 23:05] VITALS: BP 103/59; PULSE 81; RESP 20; TEMP 36.1; O2SAT 94
--- NOTE | 2023-03-09 23:44 | PM.EVENT ---
Event Note Date of Service: 03/09/23 Event Note: Patient hold NG line out multiple times. Was replaced, x-ray showing NG in the body of the stomach, okay to use. X-rays also showing evidence of right-sided lung infiltrates concerning for aspiration. Will start patient on Unasyn Time Spent With Patient Time: Total time managing care of this patient today ____ minutes.
[2023-03-09] MEDS: cloZAPine 25 MG TABLET 50 MG PO (23:52)
[2023-03-10 00:27] LABS: Glucose, Whole Blood 201 mg/dL (60-115)
[2023-03-10] MEDS: Insulin Lispro 100 UNIT/ML 3 ML VIAL SUBCUT ×2 (00:29→05:48)
[2023-03-10 04:02] VITALS: BP 100/55; PULSE 91; RESP 20; TEMP 37.1; O2SAT 95
[2023-03-10] MEDS: Levothyroxine Sodium 75 MCG TABLET PO (05:41)
[2023-03-10 05:47] LABS: Glucose, Whole Blood 227 mg/dL (60-115)
[2023-03-10 06:42] LABS: Hematocrit 32.6 % (42.0-52.0); Hemoglobin 10.2 g/dl (14.0-18.0); Mean Corpuscular HGB Conc 31.3 g/dl (31.0-36.0); Mean Corpuscular Hemoglobin 27.3 pg (27.0-33.0); Mean Corpuscular Volume 87.2 fL (80.0-98.0); Mean Platelet Volume 9.9 fL (9.4-12.4); Platelet Count 336 X10*3/uL (160-400); Red Blood Count 3.74 X10*6/uL (4.60-5.80); Red Cell Distribution Width 16.8 % (11.0-16.0); White Blood Count 8.6 X10*3/uL (4.8-10.8)
[2023-03-10 06:45] LABS: INTERNATIONAL NORM RATIO 1.1 (0.9-1.1); Prothrombin Time 13.7 SEC (11.1-13.3)
[2023-03-10 06:50] LABS: Anion Gap 13 (12-20); Blood Urea Nitrogen 8 mg/dL (9-16); Calcium 9.7 mg/dL (8.4-10.2); Carbon Dioxide 22 mmol/L (22-29); Chloride 104 mmol/L (96-108); Creatinine Clr Calc Pharmacy 94.7; Estimated Glomerular Filt Rate > 60; Glucose Random 240 mg/dL (60-115); Potassium 4.1 mmol/L (3.3-5.1); Sodium 135 mmol/L (135-145)
[2023-03-10 07:22] VITALS: BP 98/58; PULSE 83; RESP 20; TEMP 36.2; O2SAT 97
--- NOTE | 2023-03-10 09:48 | MHC.SHP ---
Pre-Procedural Eval Section A Date of Service: 03/10/23 The patient is an INPATIENT: Yes Changes since office visit: No Cold of Flu in the past 2 weeks, No New Medical Problems, No Changes in Medication and No Patient answered all questions The History & Physical has been completed within 30 days and I have reviewed it.: Yes Section B Chief Complaint: Paroxysmal atrial fibrillation. Allergies: Allergies Allergy/AdvReac Type Severity Reaction Status Date / Time No Known Allergies Allergy Unverified 04/05/20 19:36 [No Known Allergies*] Plan I have reviewed the history and physical and performed a pertinent physical examination on my patient. No changes have occurred unless specified. Time Spent With Patient Time: Total time managing care of this patient today ____ minutes.
[2023-03-10 10:13] LABS: Neut%MD 55.6 %; Neutrophils Absolute Auto 4.1 x10*3/uL (2.0-8.3); WBCANC 7.4 X10*3/uL
[2023-03-10] MEDS: 0.9 % Sodium Chloride Flush 3 ML SYRINGE IVFLUSH ×2 (10:14→17:34)
--- NOTE | 2023-03-10 10:43 | MHC.SPEECHCO ---
Per RN, Pt pulled his NG tube out again. He is currently NPO for PEG placement tomorrow. MEDICAID NURSE will continue to follow for supplemental PO recommendations as tolerated.
[2023-03-10 11:20] VITALS: BP 107/66; PULSE 77; RESP 20; TEMP 36.8; O2SAT 98
[2023-03-10] MEDS: Lactated Ringers 1,000 ML 80 ML IVCONT (11:31)
[2023-03-10 11:53] LABS: Glucose, Whole Blood 208 mg/dL (60-115)
[2023-03-10 15:12] VITALS: BP 105/59; PULSE 84; RESP 18; TEMP 36.9; O2SAT 97
--- NOTE | 2023-03-10 16:14 | PC.NURSE ---
Pt pulled NG tube around 0915. Provider notified, per provider NG tube left out. Pt kept NPO for PEG tube placement tomorrow.
--- NOTE | 2023-03-10 16:54 | HO.PM.IMPN ---
Subjective Subjective Date of Service: 03/10/23 Interval History: patient pulled NG tube twice last night that was replaced but again pulled NG tube this morning, communicates in few words not making sense, no recurrent GI bleed noted no other acute events overnight vitals remained stable. Review of Systems unable to obtain review of system due to mental status. Physical Exam Vital Signs: Vital Signs: Last Vital Signs Temp 98.4 F 03/10/23 15:12 Pulse 84 03/10/23 15:12 Resp 18 03/10/23 15:12 BP 105/59 L 03/10/23 15:12 Pulse Ox 97 03/10/23 15:12 O2 Del Method Room Air 03/10/23 15:12 O2 Flow Rate 2 03/07/23 08:00 Oxygen Flow Rate 2 02/23/23 05:00 BMI result Body Mass Index 24.7 Const: Other: Constitutional :? Awake alert, weak looking, not in distress Neck : Normal inspection, Supple Cardiovascular : irregular irregular Respiratory : good bilateral air entry,?few basal crackles Gastrointestinal:? soft,? bowel sounds audible , Non tender, Ostomy bag filled with brown stool, no blood Skin : Warm, Dry Extremities no lower extremity edema Neurological : awake, disoriented, No focal deficit Objective Data Active Medications Acetaminophen (Acetaminophen 325 Mg Tablet) 650 mg PO Q8H PRN PRN Reason: fever Last Admin: 03/02/23 05:42 Dose: 650 mg Documented By: SARAH Amiodarone HCl (Amiodarone Hcl 200 Mg Tablet) 400 mg G-TUBE BID [facility] Last Admin: 03/10/23 10:21 Dose: Not Given Documented By: WILDER Non-Admin Reason: NGtube pulled Benzonatate (Benzonatate 100 Mg Capsule) 200 mg PO TID PRN PRN Reason: Cough Clozapine (Clozapine 25 Mg Tablet) 50 mg PO BEDTIME [facility] Last Admin: 03/09/23 23:52 Dose: 50 mg Documented By: MATHEUS Dextrose (Dextrose 50 % 25 Gm/50 Ml Syringe) 25 gm IVPUSH Q15M PRN; Protocol PRN Reason: per Hypoglycemia Standing Ord. Last Admin: 02/21/23 07:53 Dose: 25 gm Documented By: PORTIA Comments: bg 67 Glucose (Glucose Gel 15 Gm Gel..Gram.) 15 gm PO Q15M PRN; Protocol PRN Reason: per Hypoglycemia Standing Ord. Lactated Ringer's (Lr) 1,000 mls @ 80 mls/hr IVCONT .[id number] [facility] Last Infusion: 03/10/23 14:18 Dose: 80 mls/hr Documented By: WILDER Cefazolin Sodium/Dextrose (Ancef) 2 gm in 50 mls @ 100 mls/hr IV PREOP ONE Stop: 03/11/23 07:29 Insulin Human Lispro (Insulin Lispro 100 Unit/Ml 3 Ml Vial) 0 unit SUBCUT Q6H [facility]; Protocol Last Admin: 03/10/23 11:55 Dose: Not Given Documented By: WILDER Non-Admin Reason: NPO Levothyroxine Sodium (Levothyroxine Sodium 75 Mcg Tablet) 75 mcg PO DAILY@0600 [facility] Last Admin: 03/10/23 05:41 Dose: 75 mcg Documented By: ADANJACKSON Melatonin (Melatonin 3 Mg Tablet) 6 mg PO BEDTIME PRN PRN Reason: Insomnia Polyethylene Glycol (Polyethylene Glycol 3350 17 Gm Powd.Pack) 17 gm G-TUBE DAILY [facility] Last Admin: 03/10/23 10:22 Dose: Not Given Documented By: WILDER Non-Admin Reason: NGtube pulled Potassium Chloride (Potassium Chloride Packet 20 Meq Packet) 40 meq G-TUBE BID [facility] Last Admin: 03/10/23 10:22 Dose: Not Given Documented By: WILDER Non-Admin Reason: NGtube pulled Sodium Bicarbonate (Sodium Bicarbonate 650 Mg Tablet) 650 mg NG-TUBE BID [facility] Last Admin: 03/10/23 10:22 Dose: Not Given Documented By: WILDER Non-Admin Reason: Ngtube pulled Sodium Chloride (0.9 % Sodium Chloride Flush 3 Ml Syringe) 3 ml IVFLUSH QSHIFT [facility] Last Admin: 03/10/23 10:14 Dose: 3 ml Documented By: WILDER Labs 03/10/23 06:12 03/10/23 06:12 Labs: Laboratory Results - last 24 hr 03/09/23 03/10/23 03/10/23 18:13 00:23 05:41 MCV MCH MCHC RDW Plt Count MPV Absolute Neuts (auto) Absolute Nucleated RBC Nucleated RBC % (auto) PT INR Anion Gap Estim Creat Clear Calc Estimated GFR POC Glucose 227 H 201 H 227 H Random Glucose Calcium 03/10/23 03/10/23 03/10/23 06:12 06:12 06:12 MCV 87.2 MCH 27.3 MCHC 31.3 RDW 16.8 H Plt Count 336 MPV 9.9 Absolute Neuts (auto) Absolute Nucleated RBC 0.000 Nucleated RBC % (auto) 0.0 PT 13.7 H D INR 1.1 Anion Gap 13 Estim Creat Clear Calc 94.7 Estimated GFR > 60 POC Glucose Random Glucose 240 H Calcium 9.7 D 03/10/23 03/10/23 09:41 11:48 MCV MCH MCHC RDW Plt Count MPV Absolute Neuts (auto) 4.1 Absolute Nucleated RBC Nucleated RBC % (auto) PT INR Anion Gap Estim Creat Clear Calc Estimated GFR POC Glucose 208 H Random Glucose Calcium Assessment and Plan (1) Candidal urinary tract infection: Status: Acute (2) Metabolic acidosis: Status: Acute (3) Adverse effect of clozapine: Status: Acute (4) Intravascular volume depletion: Status: Acute (5) Hypoalbuminemia: Status: Acute (6) Hypophosphatemia: Status: Acute (7) Severe sepsis: Status: Acute (8) Pneumonia: Status: Acute (9) Paroxysmal atrial fibrillation: Status: Acute (10) Swallowing problem: Status: Acute Plan 62M PMH CAD s/p CABG, paroxysmal afib, COPD, DM2, paranoid schizophrenia, hypothyroid, from [facility] presented with abdominal pain, distension, hypoxia. Toxic metabolic encephalopathy Awake alert verbalizing not making sense, following commands, moving all 4 extremities, spoke with patient's primary physician from [facility] patient is not at his baseline previously he would communicate his needs and more awake alert. Dose of Clozapine decreased from 200 to 50 mg was likely contributing to somnolence. normal electrolytes, TSH, no evidence of new infection, H&H stable blood sugars stable, no evidence of neuro deficit called patient's brother Ke Shetty to update him regarding patient's current clinical status and left message Dysphagia Seen by speech therapy they recommend NPO due to very weak cough At baseline patient was tolerating regular diet with thin liquids, cause of dysphagia likely weakness,no neuro deficit noted. pulled NG tube today , we will keep an GI out since scheduled for G-tube placement by Dr. Mensah at a.m. spoke with patient's brother couple days ago Ke Shetty and discussed alternate nutrition he agreed for G-tube placement Acute GI bleed noted in ostomy output 03/06 Evaluated by General surgery small amount of oozing noted from epiploica of ostomy. Cauterization with silver nitrate done, and suture placed, no recurrent bleeding noted Transfuse 1 unit of packed RBC hematocrit improved, continue to hold Eliquis Metabolic acidosis w Anion gap Gap closed, bicarb normalized, acidosis Likely 2/2 Ostomy output, dehydration, fasting status, will DC soda bicarb Acute hypernatremia 2/2 dehydration , sodium normalized Moderate protein malnutrition G-tube placement at a.m. paroxysmal afib with rvr better controlled on PO Metoprolol and amiodarone PO 400 mg bid x 2 weeks is started on 03/04, than 200mg daily. hold Eliquis for G-tube placement Cardiology input appreciated Sepsis 2/2 Pneumonia and Candidal UTI Blood cx negative finished 1 week of Vancomycin, iv Unasyn and IV [place] acute sigmoid volvulus Status post exploratory laparotomy, detorsion of sigmoid volvulus, sigmoid resection, end colostomy, Hafsa's pouch. On 02/23, Ostomy functioning Dr Mensah following severe sepsis and acute hypoxic respiratory failure and acute metabolic encephalopathy due to aspiration pneumonia Early during admission, Hypoxia resolved, Finished 10 days of Zosyn Hypokalemia Resolved, follow BMP, DC potassium replacement DM Blood sugar in 200 range, continue insulin sliding scale, CAD asa, statin, will resume once G-tube placed hypothryoid changed to IV levothyroxine since NG tube pulled out paranoid schizophrenia clozaril dvt prophylaxis Hold Eliquis due to acute GI bleed and for possible G-tube placement/ on compression boots full code reason for continued hospitalization: awaiting G-tube placement. Time Spent With Patient Time: Total time managing care of this patient today ____ minutes. Quality Stroke Does the patient have a stroke diagnosis?: No VTE Prior VTE?: No VTE Risk Level:: Medical - moderate - high VTE Device Contraindication: Treatment Not Indicated VTE Drug Contraindication: N/A - Med Ordered
[2023-03-10 18:00] LABS: Glucose, Whole Blood 201 mg/dL (60-115)
[2023-03-10 18:47] VITALS: BP 119/68; PULSE 77; RESP 18; TEMP 36.1; O2SAT 97
[2023-03-10 23:02] VITALS: BP 110/73; PULSE 76; RESP 14; TEMP 36.1; O2SAT 97
[2023-03-11] VITALS (7 sets, daily range): BP systolic 95–125; BP diastolic 56–76; PULSE 70–89; RESP 16–20; TEMP 36.1–37; O2SAT 95–99
[2023-03-11 00:17] LABS: Glucose, Whole Blood 206 mg/dL (60-115)
[2023-03-11] MEDS: Lactated Ringers 1,000 ML 80 ML IVCONT ×2 (02:13→17:59)
[2023-03-11] MEDS: OLANZapine 10 MG VIAL 5 MG IM (02:14)
[2023-03-11 06:10] LABS: Glucose, Whole Blood 212 mg/dL (60-115)
[2023-03-11 07:19] LABS: Glucose, Whole Blood 204 mg/dL (60-115)
--- NOTE | 2023-03-11 10:02 | MHC.SLORD ---
Speech Language Pathology Order Status: Pt away from room for PEG surgery. RN to send [place] to [facility] if appropriate for PO trials later this date. [facility] to continue to follow.
--- NOTE | 2023-03-11 10:23 | P.CONAN_ITS ---
[facility] Active Problems Active Problems: All Active Problems (Updated 03/04/23 @ 16:34 by Hilda Riley MD) Candidal urinary tract infection (Acute) Metabolic acidosis (Acute) Adverse effect of clozapine (Acute) Intravascular volume depletion (Acute) Hypoalbuminemia (Acute) Hypophosphatemia (Acute) Pneumonia (Acute) Severe sepsis (Acute) Paroxysmal atrial fibrillation (Acute) Swallowing problem (Acute) Acute hypernatremia (Acute) Acute hypokalemia (Acute) Afib (Acute) CAD (coronary artery disease) (Acute) Type 2 diabetes mellitus (Acute) Cognitive impairment (Acute) Paranoid schizophrenia (Acute) S/P colectomy (Acute ~02/23/23) Volvulus of sigmoid colon (Acute) Open displaced fracture of nasal bone (Acute) Fracture of nasal septum (Acute) Past Medical History Medical History (Updated 03/04/23 @ 16:34 by Hilda Riley MD) Altered mental status Amblyopia, left eye Anemia Atherosclerotic heart disease of [place] coronary artery without angina pectoris [place]nie[place] deformity of finger Candidal urinary tract infection Cognitive impairment COPD (chronic obstructive pulmonary disease) COVID-19 Dementia Drug induced subacute dyskinesia Dysphagia Encephalopathy Essential (primary) hypertension Exotropia, alternating, with A pattern Hyperlipidemia Hypermetropia of both eyes Hypothyroidism Palsy (spasm) of conjugate gaze Paranoid schizophrenia Personal history of transient ischemic attack (TIA), and cerebral infarction without residual deficits Ptosis of right eyelid Type 2 diabetes mellitus Family History Family history of problems with anesthesia: No Surgical History Surgical History Presence of aortocoronary bypass graft History of Problems with Anesthesia: No Social History Social History Household Members: Unknown / Unable to assess Household Members Other:: [facility] Housing: Other Housing Other:: [facility] Do you presently have visiting nurse or other home services: No Unable to assess alcohol history related to: Unknown Patient Tobacco Use Status: Former Tobacco user Tobacco use type: Cigarette Years Smoked: SURAJ Use of substances other than those prescribed or required for medical reasons: No Currently Displaying Signs/Symptoms of Drug Intoxication Withdrawal: No Are you DNR?: No Advance Directives: Yes Advance Directives on File: Yes Advance Directives Date on File: 12/14/21 Do you have thoughts of harming others: None Do you have a plan to hurt others: No Plan service: No Current occupational status: disabled Meds Allergies Allergy/AdvReac Type Severity Reaction Status Date / Time No Known Allergies Allergy Unverified 04/05/20 19:36 [No Known Allergies*] Active Medications: Current Medications Acetaminophen (Acetaminophen 325 Mg Tablet) 650 mg PO Q8H PRN PRN Reason: fever Last Admin: 03/02/23 05:42 Dose: 650 mg Amiodarone HCl (Amiodarone Hcl 200 Mg Tablet) 400 mg G-TUBE BID [facility] Last Admin: 03/11/23 10:16 Dose: Not Given Benzonatate (Benzonatate 100 Mg Capsule) 200 mg PO TID PRN PRN Reason: Cough Clozapine (Clozapine 25 Mg Tablet) 50 mg PO BEDTIME [facility] Last Admin: 03/10/23 20:13 Dose: Not Given Dextrose (Dextrose 50 % 25 Gm/50 Ml Syringe) 25 gm IVPUSH Q15M PRN; Protocol PRN Reason: per Hypoglycemia Standing Ord. Last Admin: 02/21/23 07:53 Dose: 25 gm Glucose (Glucose Gel 15 Gm Gel..Gram.) 15 gm PO Q15M PRN; Protocol PRN Reason: per Hypoglycemia Standing Ord. Lactated Ringer's (Lr) 1,000 mls @ 80 mls/hr IVCONT .[id number] [facility] Last Admin: 03/11/23 02:13 Dose: 80 mls/hr Insulin Human Lispro (Insulin Lispro 100 Unit/Ml 3 Ml Vial) 0 unit SUBCUT Q6H [facility]; Protocol Last Admin: 03/11/23 04:46 Dose: Not Given Levothyroxine Sodium (Levothyroxine Sodium 100 Mcg/5 Ml Vial) 37.5 mcg IVPUSH DAILY@0600 [facility] Last Admin: 03/11/23 04:46 Dose: Not Given Melatonin (Melatonin 3 Mg Tablet) 6 mg PO BEDTIME PRN PRN Reason: Insomnia Olanzapine (Olanzapine 10 Mg Vial) 5 mg IM DAILY PRN PRN Reason: agitation Last Admin: 03/11/23 02:14 Dose: 5 mg Polyethylene Glycol (Polyethylene Glycol 3350 17 Gm Powd.Pack) 17 gm G-TUBE DAILY [facility] Last Admin: 03/11/23 10:16 Dose: Not Given Sodium Chloride (0.9 % Sodium Chloride Flush 3 Ml Syringe) 3 ml IVFLUSH QSHIFT [facility] Last Admin: 03/11/23 10:17 Dose: Not Given Home Medications Medication Instructions Recorded Confirmed Last Taken Type aspirin 81 mg chewable tablet 81 mg PO DAILY 12/13/21 02/20/23 12/12/21 History atorvastatin 80 mg tablet 1 tab PO BEDTIME 12/13/21 02/20/23 12/12/21 History canagliflozin 100 mg tablet 1 tab PO DAILY 12/13/21 02/20/23 12/12/21 History (Invokana) clozapine 200 mg tablet 1 tab PO BEDTIME 12/13/21 02/20/23 12/12/21 History ferrous sulfate 325 mg (65 mg 325 mg PO DAILY@1700 12/13/21 02/20/23 12/12/21 History iron) tablet insulin glargine 100 unit/mL (3 20 unit subcut BEDTIME 12/13/21 02/20/23 12/12/21 History mL) subcutaneous pen (Lantus Solostar U-100 Insulin) lactulose 10 gram/15 mL oral 30 ml PO DAILY 12/13/21 02/20/23 12/12/21 History solution levothyroxine 75 mcg tablet 1 tab PO DAILY@0600 12/13/21 02/20/23 12/12/21 History linagliptin 5 mg tablet (Tradjenta) 1 tab PO DAILY 12/13/21 02/20/23 12/12/21 History omega [id number]-[id number]-fish oil 1,000 mg 1 cap PO BID 12/13/21 02/20/23 12/12/21 History (120 mg-180 mg) capsule (Fish Oil) pantoprazole 40 mg tablet,delayed 1 tab PO BID@0630,1630 12/13/21 02/20/23 12/12/21 History release metformin 500 mg tablet 1,000 mg PO BID 12/27/22 02/20/23 Unknown History nicotine 7 mg/24 hr daily 1 patch transdermal Q24H PRN 12/27/22 02/20/23 Unknown History transdermal patch Smoking Cessation nystatin 100,000 unit/gram topical 1 appl topical BID 12/27/22 02/20/23 Unknown History powder sennosides 8.6 mg tablet (senna) 8.6 mg PO DAILY PRN Constipation 12/27/22 02/20/23 Unknown History metoprolol tartrate 25 mg tablet 12.5 mg PO BID 02/20/23 02/20/23 Unknown History zinc oxide 1 appl topical QSHIFT 02/20/23 02/20/23 Unknown History Exam Exam Date and Time: March 11, 2023 1023 Height,Weight and Vital Signs: Height 5 ft 11 in Weight 80.4 kg Last Vital Signs Temp 96.9 F 03/11/23 07:28 Pulse 79 03/11/23 07:28 Resp 20 03/11/23 07:28 BP 95/56 L 03/11/23 07:28 Pulse Ox 96 03/11/23 07:28 O2 Del Method Room Air 03/11/23 07:28 O2 Flow Rate 2 03/07/23 08:00 Oxygen Flow Rate 2 02/23/23 05:00 Pertinent Lab Results Pertinent Lab Results: Laboratory Tests 02/20/23 02/20/23 02/20/23 01:56 02:07 02:07 WBC 19.2 H RBC 5.37 Hgb 14.7 Hct 45.2 MCV 84.2 MCH 27.4 MCHC 32.5 RDW 15.7 Plt Count 307 D MPV 10.9 Immature Gran % (Auto) 0.6 H Neut % (Auto) 83.6 H Lymph % (Auto) 8.3 L [place] % (Auto) 6.9 Eos % (Auto) 0.3 Baso % (Auto) 0.3 Lymph # (Auto) 1.6 [place] # (Auto) 1.3 H Eos # (Auto) 0.1 Baso # (Auto) 0.1 Abs Immat Gran (auto) 0.12 H Absolute Neuts (auto) 16.1 H Absolute Nucleated RBC 0.000 Nucleated RBC % (auto) 0.0 PT INR D-Dimer High Sensitivty 237 O2 Saturation ABG pH at Pt Temp ABG pCO2 at Pt Temp ABG pO2 at Pt Temp ABG HCO3 ABG Base Excess (Actual) VBG pH VBG pCO2 VBG pO2 VBG HCO3 VBG O2 Saturation VBG Base Excess Sodium Potassium Chloride Carbon Dioxide Anion Gap BUN Creatinine Estim Creat Clear Calc Estimated GFR POC Glucose 273 H Random Glucose Fasting Glucose Lactic Acid Lactic Acid F/U @ 2Hr Lactic Acid F/U @ 4Hr Calcium Phosphorus Magnesium Total Bilirubin Direct Bilirubin AST ALT Alkaline Phosphatase Lactate Dehydrogenase Troponin I High Sens B-Natriuretic Peptide Total Protein Albumin Beta-Hydroxybutyrate TSH Urine Color Urine Appearance Urine pH Ur Specific [place] Urine Protein Urine Glucose (UA) Urine Ketones Urine Blood Urine Nitrite Ur Leukocyte Esterase Urine RBC Urine WBC Ur Squamous Epith Cells Urine Bacteria Hyaline Casts Urine Yeast Vancomycin Trough Random Vancomycin Blood Type Antibody Screen Crossmatch 02/20/23 02/20/23 02/20/23 02:07 02:07 02:07 WBC RBC Hgb Hct MCV MCH MCHC RDW Plt Count MPV Immature Gran % (Auto) Neut % (Auto) Lymph % (Auto) [place] % (Auto) Eos % (Auto) Baso % (Auto) Lymph # (Auto) [place] # (Auto) Eos # (Auto) Baso # (Auto) Abs Immat Gran (auto) Absolute Neuts (auto) Absolute Nucleated RBC Nucleated RBC % (auto) PT INR D-Dimer High Sensitivty O2 Saturation ABG pH at Pt Temp ABG pCO2 at Pt Temp ABG pO2 at Pt Temp ABG HCO3 ABG Base Excess (Actual) VBG pH VBG pCO2 VBG pO2 VBG HCO3 VBG O2 Saturation VBG Base Excess Sodium 141 Potassium 4.1 Chloride 108 Carbon Dioxide 16 L Anion Gap 21 H BUN 40 H Creatinine 1.27 Estim Creat Clear Calc 63.4 Estimated GFR 57 POC Glucose Random Glucose 296 H Fasting Glucose Lactic Acid 5.4 H* Lactic Acid F/U @ 2Hr Lactic Acid F/U @ 4Hr Calcium 10.6 H D Phosphorus Magnesium Total Bilirubin 0.7 Direct Bilirubin AST 13 ALT 14 Alkaline Phosphatase 110 Lactate Dehydrogenase Troponin I High Sens < 2.7 B-Natriuretic Peptide Total Protein 7.6 Albumin 4.3 Beta-Hydroxybutyrate TSH Urine Color Urine Appearance Urine pH Ur Specific [place] Urine Protein Urine Glucose (UA) Urine Ketones Urine Blood Urine Nitrite Ur Leukocyte Esterase Urine RBC Urine WBC Ur Squamous Epith Cells Urine Bacteria Hyaline Casts Urine Yeast Vancomycin Trough Random Vancomycin Blood Type Antibody Screen Crossmatch 02/20/23 02/20/23 02/20/23 02:07 02:07 02:10 WBC RBC Hgb Hct MCV MCH MCHC RDW Plt Count MPV Immature Gran % (Auto) Neut % (Auto) Lymph % (Auto) [place] % (Auto) Eos % (Auto) Baso % (Auto) Lymph # (Auto) [place] # (Auto) Eos # (Auto) Baso # (Auto) Abs Immat Gran (auto) Absolute Neuts (auto) Absolute Nucleated RBC Nucleated RBC % (auto) PT 20.3 H INR 1.7 H D-Dimer High Sensitivty O2 Saturation ABG pH at Pt Temp ABG pCO2 at Pt Temp ABG pO2 at Pt Temp ABG HCO3 ABG Base Excess (Actual) VBG pH 7.38 VBG pCO2 28 VBG pO2 71 VBG HCO3 17 L VBG O2 Saturation 90.0 VBG Base Excess -6.3 Sodium Potassium Chloride Carbon Dioxide Anion Gap BUN Creatinine Estim Creat Clear Calc Estimated GFR POC Glucose Random Glucose Fasting Glucose Lactic Acid Lactic Acid F/U @ 2Hr Lactic Acid F/U @ 4Hr Calcium Phosphorus Magnesium Total Bilirubin Direct Bilirubin AST ALT Alkaline Phosphatase Lactate Dehydrogenase Troponin I High Sens B-Natriuretic Peptide 60 Total Protein Albumin Beta-Hydroxybutyrate TSH Urine Color Urine Appearance Urine pH Ur Specific [place] Urine Protein Urine Glucose (UA) Urine Ketones Urine Blood Urine Nitrite Ur Leukocyte Esterase Urine RBC Urine WBC Ur Squamous Epith Cells Urine Bacteria Hyaline Casts Urine Yeast Vancomycin Trough Random Vancomycin Blood Type Antibody Screen Crossmatch 02/20/23 02/20/23 02/20/23 03:27 04:22 08:11 WBC RBC Hgb Hct MCV MCH MCHC RDW Plt Count MPV Immature Gran % (Auto) Neut % (Auto) Lymph % (Auto) [place] % (Auto) Eos % (Auto) Baso % (Auto) Lymph # (Auto) [place] # (Auto) Eos # (Auto) Baso # (Auto) Abs Immat Gran (auto) Absolute Neuts (auto) Absolute Nucleated RBC Nucleated RBC % (auto) PT INR D-Dimer High Sensitivty O2 Saturation ABG pH at Pt Temp ABG pCO2 at Pt Temp ABG pO2 at Pt Temp ABG HCO3 ABG Base Excess (Actual) VBG pH VBG pCO2 VBG pO2 VBG HCO3 VBG O2 Saturation VBG Base Excess Sodium Potassium Chloride Carbon Dioxide Anion Gap BUN Creatinine Estim Creat Clear Calc Estimated GFR POC Glucose 152 H Random Glucose Fasting Glucose Lactic Acid Lactic Acid F/U @ 2Hr 4.3 H* Lactic Acid F/U @ 4Hr Calcium Phosphorus Magnesium Total Bilirubin Direct Bilirubin AST ALT Alkaline Phosphatase Lactate Dehydrogenase Troponin I High Sens B-Natriuretic Peptide Total Protein Albumin Beta-Hydroxybutyrate TSH Urine Color Yellow Urine Appearance Cloudy Urine pH 5.5 Ur Specific [place] >= 1.030 H Urine Protein Negative Urine Glucose (UA) >=1000 H Urine Ketones Negative Urine Blood Negative Urine Nitrite Negative Ur Leukocyte Esterase Negative Urine RBC 6-10 H Urine WBC 11-20 H Ur Squamous Epith Cells 0-2 Urine Bacteria None Seen Hyaline Casts 0-2 Urine Yeast Present Vancomycin Trough Random Vancomycin Blood Type Antibody Screen Crossmatch 02/20/23 02/20/23 02/20/23 08:33 11:05 16:03 WBC RBC Hgb Hct MCV MCH MCHC RDW Plt Count MPV Immature Gran % (Auto) Neut % (Auto) Lymph % (Auto) [place] % (Auto) Eos % (Auto) Baso % (Auto) Lymph # (Auto) [place] # (Auto) Eos # (Auto) Baso # (Auto) Abs Immat Gran (auto) Absolute Neuts (auto) Absolute Nucleated RBC Nucleated RBC % (auto) PT INR D-Dimer High Sensitivty O2 Saturation ABG pH at Pt Temp ABG pCO2 at Pt Temp ABG pO2 at Pt Temp ABG HCO3 ABG Base Excess (Actual) VBG pH VBG pCO2 VBG pO2 VBG HCO3 VBG O2 Saturation VBG Base Excess Sodium Potassium Chloride Carbon Dioxide Anion Gap BUN Creatinine Estim Creat Clear Calc Estimated GFR POC Glucose 117 H 88 Random Glucose Fasting Glucose Lactic Acid Lactic Acid F/U @ 2Hr Lactic Acid F/U @ 4Hr 3.0 H* Calcium Phosphorus Magnesium Total Bilirubin Direct Bilirubin AST ALT Alkaline Phosphatase Lactate Dehydrogenase Troponin I High Sens B-Natriuretic Peptide Total Protein Albumin Beta-Hydroxybutyrate TSH Urine Color Urine Appearance Urine pH Ur Specific [place] Urine Protein Urine Glucose (UA) Urine Ketones Urine Blood Urine Nitrite Ur Leukocyte Esterase Urine RBC Urine WBC Ur Squamous Epith Cells Urine Bacteria Hyaline Casts Urine Yeast Vancomycin Trough Random Vancomycin Blood Type Antibody Screen Crossmatch 02/20/23 02/21/23 02/21/23 19:38 07:16 09:17 WBC RBC Hgb Hct MCV MCH MCHC RDW Plt Count MPV Immature Gran % (Auto) Neut % (Auto) Lymph % (Auto) [place] % (Auto) Eos % (Auto) Baso % (Auto) Lymph # (Auto) [place] # (Auto) Eos # (Auto) Baso # (Auto) Abs Immat Gran (auto) Absolute Neuts (auto) Absolute Nucleated RBC Nucleated RBC % (auto) PT INR D-Dimer High Sensitivty O2 Saturation ABG pH at Pt Temp ABG pCO2 at Pt Temp ABG pO2 at Pt Temp ABG HCO3 ABG Base Excess (Actual) VBG pH VBG pCO2 VBG pO2 VBG HCO3 VBG O2 Saturation VBG Base Excess Sodium Potassium Chloride Carbon Dioxide Anion Gap BUN Creatinine Estim Creat Clear Calc Estimated GFR POC Glucose 80 67 149 H Random Glucose Fasting Glucose Lactic Acid Lactic Acid F/U @ 2Hr Lactic Acid F/U @ 4Hr Calcium Phosphorus Magnesium Total Bilirubin Direct Bilirubin AST ALT Alkaline Phosphatase Lactate Dehydrogenase Troponin I High Sens B-Natriuretic Peptide Total Protein Albumin Beta-Hydroxybutyrate TSH Urine Color Urine Appearance Urine pH Ur Specific [place] Urine Protein Urine Glucose (UA) Urine Ketones Urine Blood Urine Nitrite Ur Leukocyte Esterase Urine RBC Urine WBC Ur Squamous Epith Cells Urine Bacteria Hyaline Casts Urine Yeast Vancomycin Trough Random Vancomycin Blood Type Antibody Screen Crossmatch 02/21/23 02/21/23 02/21/23 11:06 16:00 20:22 WBC RBC Hgb Hct MCV MCH MCHC RDW Plt Count MPV Immature Gran % (Auto) Neut % (Auto) Lymph % (Auto) [place] % (Auto) Eos % (Auto) Baso % (Auto) Lymph # (Auto) [place] # (Auto) Eos # (Auto) Baso # (Auto) Abs Immat Gran (auto) Absolute Neuts (auto) Absolute Nucleated RBC Nucleated RBC % (auto) PT INR D-Dimer High Sensitivty O2 Saturation ABG pH at Pt Temp ABG pCO2 at Pt Temp ABG pO2 at Pt Temp ABG HCO3 ABG Base Excess (Actual) VBG pH VBG pCO2 VBG pO2 VBG HCO3 VBG O2 Saturation VBG Base Excess Sodium Potassium Chloride Carbon Dioxide Anion Gap BUN Creatinine Estim Creat Clear Calc Estimated GFR POC Glucose 104 237 H 308 H Random Glucose Fasting Glucose Lactic Acid Lactic Acid F/U @ 2Hr Lactic Acid F/U @ 4Hr Calcium Phosphorus Magnesium Total Bilirubin Direct Bilirubin AST ALT Alkaline Phosphatase Lactate Dehydrogenase Troponin I High Sens B-Natriuretic Peptide Total Protein Albumin Beta-Hydroxybutyrate TSH Urine Color Urine Appearance Urine pH Ur Specific [place] Urine Protein Urine Glucose (UA) Urine Ketones Urine Blood Urine Nitrite Ur Leukocyte Esterase Urine RBC Urine WBC Ur Squamous Epith Cells Urine Bacteria Hyaline Casts Urine Yeast Vancomycin Trough Random Vancomycin Blood Type Antibody Screen Crossmatch 02/22/23 02/22/23 02/22/23 07:21 11:20 16:39 WBC RBC Hgb Hct MCV MCH MCHC RDW Plt Count MPV Immature Gran % (Auto) Neut % (Auto) Lymph % (Auto) [place] % (Auto) Eos % (Auto) Baso % (Auto) Lymph # (Auto) [place] # (Auto) Eos # (Auto) Baso # (Auto) Abs Immat Gran (auto) Absolute Neuts (auto) Absolute Nucleated RBC Nucleated RBC % (auto) PT INR D-Dimer High Sensitivty O2 Saturation ABG pH at Pt Temp ABG pCO2 at Pt Temp ABG pO2 at Pt Temp ABG HCO3 ABG Base Excess (Actual) VBG pH VBG pCO2 VBG pO2 VBG HCO3 VBG O2 Saturation VBG Base Excess Sodium Potassium Chloride Carbon Dioxide Anion Gap BUN Creatinine Estim Creat Clear Calc Estimated GFR POC Glucose 115 148 H 205 H Random Glucose Fasting Glucose Lactic Acid Lactic Acid F/U @ 2Hr Lactic Acid F/U @ 4Hr Calcium Phosphorus Magnesium Total Bilirubin Direct Bilirubin AST ALT Alkaline Phosphatase Lactate Dehydrogenase Troponin I High Sens B-Natriuretic Peptide Total Protein Albumin Beta-Hydroxybutyrate TSH Urine Color Urine Appearance Urine pH Ur Specific [place] Urine Protein Urine Glucose (UA) Urine Ketones Urine Blood Urine Nitrite Ur Leukocyte Esterase Urine RBC Urine WBC Ur Squamous Epith Cells Urine Bacteria Hyaline Casts Urine Yeast Vancomycin Trough Random Vancomycin Blood Type Antibody Screen Crossmatch 02/22/23 02/23/23 02/23/23 21:26 06:03 06:03 WBC 12.8 H RBC 4.88 Hgb 13.4 L Hct 42.0 MCV 86.1 MCH 27.5 MCHC 31.9 RDW 15.4 Plt Count 184 D MPV 11.4 Immature Gran % (Auto) Neut % (Auto) Lymph % (Auto) [place] % (Auto) Eos % (Auto) Baso % (Auto) Lymph # (Auto) [place] # (Auto) Eos # (Auto) Baso # (Auto) Abs Immat Gran (auto) Absolute Neuts (auto) Absolute Nucleated RBC 0.000 Nucleated RBC % (auto) 0.0 PT INR D-Dimer High Sensitivty O2 Saturation ABG pH at Pt Temp ABG pCO2 at Pt Temp ABG pO2 at Pt Temp ABG HCO3 ABG Base Excess (Actual) VBG pH VBG pCO2 VBG pO2 VBG HCO3 VBG O2 Saturation VBG Base Excess Sodium 150 H Potassium 2.6 L D Chloride 115 H Carbon Dioxide 16 L Anion Gap 22 H BUN 15 Creatinine 0.71 Estim Creat Clear Calc 113.4 Estimated GFR > 60 POC Glucose 105 Random Glucose Fasting Glucose 77 Lactic Acid Lactic Acid F/U @ 2Hr Lactic Acid F/U @ 4Hr Calcium 9.1 D Phosphorus Magnesium Total Bilirubin Direct Bilirubin AST ALT Alkaline Phosphatase Lactate Dehydrogenase Troponin I High Sens B-Natriuretic Peptide Total Protein Albumin Beta-Hydroxybutyrate TSH Urine Color Urine Appearance Urine pH Ur Specific [place] Urine Protein Urine Glucose (UA) Urine Ketones Urine Blood Urine Nitrite Ur Leukocyte Esterase Urine RBC Urine WBC Ur Squamous Epith Cells Urine Bacteria Hyaline Casts Urine Yeast Vancomycin Trough Random Vancomycin Blood Type Antibody Screen Crossmatch 02/23/23 02/23/23 02/23/23 07:37 11:31 11:52 WBC RBC Hgb Hct MCV MCH MCHC RDW Plt Count MPV Immature Gran % (Auto) Neut % (Auto) Lymph % (Auto) [place] % (Auto) Eos % (Auto) Baso % (Auto) Lymph # (Auto) [place] # (Auto) Eos # (Auto) Baso # (Auto) Abs Immat Gran (auto) Absolute Neuts (auto) Absolute Nucleated RBC Nucleated RBC % (auto) PT INR D-Dimer High Sensitivty O2 Saturation ABG pH at Pt Temp ABG pCO2 at Pt Temp ABG pO2 at Pt Temp ABG HCO3 ABG Base Excess (Actual) VBG pH VBG pCO2 VBG pO2 VBG HCO3 VBG O2 Saturation VBG Base Excess Sodium 151 H Potassium 3.1 L Chloride 115 H Carbon Dioxide 16 L Anion Gap 23 H BUN 16 Creatinine 0.81 Estim Creat Clear Calc 99.4 Estimated GFR > 60 POC Glucose 67 111 Random Glucose 108 Fasting Glucose Lactic Acid Lactic Acid F/U @ 2Hr Lactic Acid F/U @ 4Hr Calcium 9.1 Phosphorus Magnesium Total Bilirubin Direct Bilirubin AST ALT Alkaline Phosphatase Lactate Dehydrogenase Troponin I High Sens B-Natriuretic Peptide Total Protein Albumin Beta-Hydroxybutyrate TSH Urine Color Urine Appearance Urine pH Ur Specific [place] Urine Protein Urine Glucose (UA) Urine Ketones Urine Blood Urine Nitrite Ur Leukocyte Esterase Urine RBC Urine WBC Ur Squamous Epith Cells Urine Bacteria Hyaline Casts Urine Yeast Vancomycin Trough Random Vancomycin Blood Type Antibody Screen Crossmatch 02/23/23 02/23/23 02/23/23 11:52 17:34 20:02 WBC RBC Hgb Hct MCV MCH MCHC RDW Plt Count MPV Immature Gran % (Auto) Neut % (Auto) Lymph % (Auto) [place] % (Auto) Eos % (Auto) Baso % (Auto) Lymph # (Auto) [place] # (Auto) Eos # (Auto) Baso # (Auto) Abs Immat Gran (auto) Absolute Neuts (auto) Absolute Nucleated RBC Nucleated RBC % (auto) PT INR D-Dimer High Sensitivty O2 Saturation ABG pH at Pt Temp ABG pCO2 at Pt Temp ABG pO2 at Pt Temp ABG HCO3 ABG Base Excess (Actual) VBG pH VBG pCO2 VBG pO2 VBG HCO3 VBG O2 Saturation VBG Base Excess Sodium Potassium Chloride Carbon Dioxide Anion Gap BUN Creatinine Estim Creat Clear Calc Estimated GFR POC Glucose 125 H 174 H Random Glucose Fasting Glucose Lactic Acid Lactic Acid F/U @ 2Hr Lactic Acid F/U @ 4Hr Calcium Phosphorus Magnesium Total Bilirubin Direct Bilirubin AST ALT Alkaline Phosphatase Lactate Dehydrogenase Troponin I High Sens B-Natriuretic Peptide Total Protein Albumin Beta-Hydroxybutyrate TSH Urine Color Urine Appearance Urine pH Ur Specific [place] Urine Protein Urine Glucose (UA) Urine Ketones Urine Blood Urine Nitrite Ur Leukocyte Esterase Urine RBC Urine WBC Ur Squamous Epith Cells Urine Bacteria Hyaline Casts Urine Yeast Vancomycin Trough Random Vancomycin Blood Type O Positive Antibody Screen NEGATIVE Crossmatch 02/23/23 02/23/23 02/23/23 21:59 21:59 22:02 WBC 13.5 H RBC 4.17 L Hgb 11.5 L Hct 35.2 L MCV 84.4 MCH 27.6 MCHC 32.7 RDW 15.6 Plt Count 192 MPV 10.4 Immature Gran % (Auto) 0.5 H Neut % (Auto) 89.4 H Lymph % (Auto) 4.5 L [place] % (Auto) 5.4 Eos % (Auto) 0.0 Baso % (Auto) 0.2 Lymph # (Auto) 0.6 L [place] # (Auto) 0.7 Eos # (Auto) 0.0 Baso # (Auto) 0.0 Abs Immat Gran (auto) 0.07 H Absolute Neuts (auto) 12.0 H Absolute Nucleated RBC 0.000 Nucleated RBC % (auto) 0.0 PT INR D-Dimer High Sensitivty O2 Saturation ABG pH at Pt Temp ABG pCO2 at Pt Temp ABG pO2 at Pt Temp ABG HCO3 ABG Base Excess (Actual) VBG pH 7.47 H VBG pCO2 22 VBG pO2 112 VBG HCO3 17 L VBG O2 Saturation 100.0 VBG Base Excess -4.7 Sodium 148 H Potassium 4.2 D Chloride 117 H Carbon Dioxide 18 L Anion Gap 17 BUN 16 Creatinine 0.86 Estim Creat Clear Calc 93.6 Estimated GFR > 60 POC Glucose Random Glucose 201 H Fasting Glucose Lactic Acid Lactic Acid F/U @ 2Hr Lactic Acid F/U @ 4Hr Calcium 8.5 D Phosphorus Magnesium Total Bilirubin 0.8 Direct Bilirubin AST 22 ALT 15 Alkaline Phosphatase 67 Lactate Dehydrogenase Troponin I High Sens B-Natriuretic Peptide Total Protein 5.5 L Albumin 2.8 L Beta-Hydroxybutyrate TSH Urine Color Urine Appearance Urine pH Ur Specific [place] Urine Protein Urine Glucose (UA) Urine Ketones Urine Blood Urine Nitrite Ur Leukocyte Esterase Urine RBC Urine WBC Ur Squamous Epith Cells Urine Bacteria Hyaline Casts Urine Yeast Vancomycin Trough Random Vancomycin Blood Type Antibody Screen Crossmatch 02/24/23 02/24/23 02/24/23 04:39 04:39 04:49 WBC 9.6 RBC 4.09 L Hgb 11.2 L Hct 34.8 L MCV 85.1 MCH 27.4 MCHC 32.2 RDW 15.5 Plt Count 180 MPV 10.5 Immature Gran % (Auto) 0.4 Neut % (Auto) 79.6 H Lymph % (Auto) 10.5 L [place] % (Auto) 8.9 Eos % (Auto) 0.3 Baso % (Auto) 0.3 Lymph # (Auto) 1.0 L [place] # (Auto) 0.9 Eos # (Auto) 0.0 Baso # (Auto) 0.0 Abs Immat Gran (auto) 0.04 H Absolute Neuts (auto) 7.7 Absolute Nucleated RBC 0.000 Nucleated RBC % (auto) 0.0 PT INR D-Dimer High Sensitivty O2 Saturation ABG pH at Pt Temp ABG pCO2 at Pt Temp ABG pO2 at Pt Temp ABG HCO3 ABG Base Excess (Actual) VBG pH 7.52 H VBG pCO2 25 VBG pO2 64 VBG HCO3 21 L VBG O2 Saturation 92.0 VBG Base Excess -0.4 Sodium 150 H Potassium 3.8 Chloride 119 H Carbon Dioxide 21 L Anion Gap 14 BUN 14 Creatinine 0.79 Estim Creat Clear Calc 101.9 Estimated GFR > 60 POC Glucose Random Glucose 209 H Fasting Glucose 209 H Lactic Acid Lactic Acid F/U @ 2Hr Lactic Acid F/U @ 4Hr Calcium 9.0 Phosphorus 2.1 L Magnesium 1.7 Total Bilirubin 0.8 Direct Bilirubin AST 20 ALT 14 Alkaline Phosphatase 65 Lactate Dehydrogenase Troponin I High Sens B-Natriuretic Peptide Total Protein 5.6 L Albumin 2.8 L Beta-Hydroxybutyrate TSH Urine Color Urine Appearance Urine pH Ur Specific [place] Urine Protein Urine Glucose (UA) Urine Ketones Urine Blood Urine Nitrite Ur Leukocyte Esterase Urine RBC Urine WBC Ur Squamous Epith Cells Urine Bacteria Hyaline Casts Urine Yeast Vancomycin Trough Random Vancomycin Blood Type Antibody Screen Crossmatch 02/24/23 02/24/23 02/24/23 12:18 17:54 23:38 WBC RBC Hgb Hct MCV MCH MCHC RDW Plt Count MPV Immature Gran % (Auto) Neut % (Auto) Lymph % (Auto) [place] % (Auto) Eos % (Auto) Baso % (Auto) Lymph # (Auto) [place] # (Auto) Eos # (Auto) Baso # (Auto) Abs Immat Gran (auto) Absolute Neuts (auto) Absolute Nucleated RBC Nucleated RBC % (auto) PT INR D-Dimer High Sensitivty O2 Saturation ABG pH at Pt Temp ABG pCO2 at Pt Temp ABG pO2 at Pt Temp ABG HCO3 ABG Base Excess (Actual) VBG pH VBG pCO2 VBG pO2 VBG HCO3 VBG O2 Saturation VBG Base Excess Sodium Potassium Chloride Carbon Dioxide Anion Gap BUN Creatinine Estim Creat Clear Calc Estimated GFR POC Glucose 176 H 180 H 158 H Random Glucose Fasting Glucose Lactic Acid Lactic Acid F/U @ 2Hr Lactic Acid F/U @ 4Hr Calcium Phosphorus Magnesium Total Bilirubin Direct Bilirubin AST ALT Alkaline Phosphatase Lactate Dehydrogenase Troponin I High Sens B-Natriuretic Peptide Total Protein Albumin Beta-Hydroxybutyrate TSH Urine Color Urine Appearance Urine pH Ur Specific [place] Urine Protein Urine Glucose (UA) Urine Ketones Urine Blood Urine Nitrite Ur Leukocyte Esterase Urine RBC Urine WBC Ur Squamous Epith Cells Urine Bacteria Hyaline Casts Urine Yeast Vancomycin Trough Random Vancomycin Blood Type Antibody Screen Crossmatch 02/25/23 02/25/23 02/25/23 05:25 07:15 07:15 WBC 11.8 H RBC 3.71 L Hgb 10.1 L Hct 30.7 L MCV 82.7 MCH 27.2 MCHC 32.9 RDW 15.5 Plt Count 159 L MPV 10.4 Immature Gran % (Auto) 0.7 H Neut % (Auto) 77.3 H Lymph % (Auto) 13.6 L [place] % (Auto) 6.9 Eos % (Auto) 1.2 Baso % (Auto) 0.3 Lymph # (Auto) 1.6 [place] # (Auto) 0.8 Eos # (Auto) 0.1 Baso # (Auto) 0.0 Abs Immat Gran (auto) 0.08 H Absolute Neuts (auto) 9.1 H Absolute Nucleated RBC 0.000 Nucleated RBC % (auto) 0.0 PT INR D-Dimer High Sensitivty O2 Saturation ABG pH at Pt Temp ABG pCO2 at Pt Temp ABG pO2 at Pt Temp ABG HCO3 ABG Base Excess (Actual) VBG pH VBG pCO2 VBG pO2 VBG HCO3 VBG O2 Saturation VBG Base Excess Sodium 142 Potassium 3.1 L Chloride 109 H Carbon Dioxide 22 Anion Gap 14 BUN 8 L Creatinine 0.70 Estim Creat Clear Calc 115.0 Estimated GFR > 60 POC Glucose 167 H Random Glucose 171 H Fasting Glucose Lactic Acid Lactic Acid F/U @ 2Hr Lactic Acid F/U @ 4Hr Calcium 9.0 Phosphorus 2.0 L Magnesium 1.6 Total Bilirubin Direct Bilirubin AST ALT Alkaline Phosphatase Lactate Dehydrogenase Troponin I High Sens B-Natriuretic Peptide Total Protein Albumin 3.5 Beta-Hydroxybutyrate TSH Urine Color Urine Appearance Urine pH Ur Specific [place] Urine Protein Urine Glucose (UA) Urine Ketones Urine Blood Urine Nitrite Ur Leukocyte Esterase Urine RBC Urine WBC Ur Squamous Epith Cells Urine Bacteria Hyaline Casts Urine Yeast Vancomycin Trough Random Vancomycin Blood Type Antibody Screen Crossmatch 02/25/23 02/25/23 02/25/23 11:08 18:13 23:44 WBC RBC Hgb Hct MCV MCH MCHC RDW Plt Count MPV Immature Gran % (Auto) Neut % (Auto) Lymph % (Auto) [place] % (Auto) Eos % (Auto) Baso % (Auto) Lymph # (Auto) [place] # (Auto) Eos # (Auto) Baso # (Auto) Abs Immat Gran (auto) Absolute Neuts (auto) Absolute Nucleated RBC Nucleated RBC % (auto) PT INR D-Dimer High Sensitivty O2 Saturation ABG pH at Pt Temp ABG pCO2 at Pt Temp ABG pO2 at Pt Temp ABG HCO3 ABG Base Excess (Actual) VBG pH VBG pCO2 VBG pO2 VBG HCO3 VBG O2 Saturation VBG Base Excess Sodium Potassium Chloride Carbon Dioxide Anion Gap BUN Creatinine Estim Creat Clear Calc Estimated GFR POC Glucose 159 H 238 H 151 H Random Glucose Fasting Glucose Lactic Acid Lactic Acid F/U @ 2Hr Lactic Acid F/U @ 4Hr Calcium Phosphorus Magnesium Total Bilirubin Direct Bilirubin AST ALT Alkaline Phosphatase Lactate Dehydrogenase Troponin I High Sens B-Natriuretic Peptide Total Protein Albumin Beta-Hydroxybutyrate TSH Urine Color Urine Appearance Urine pH Ur Specific [place] Urine Protein Urine Glucose (UA) Urine Ketones Urine Blood Urine Nitrite Ur Leukocyte Esterase Urine RBC Urine WBC Ur Squamous Epith Cells Urine Bacteria Hyaline Casts Urine Yeast Vancomycin Trough Random Vancomycin Blood Type Antibody Screen Crossmatch 02/26/23 02/26/23 02/26/23 05:59 06:20 06:20 WBC 11.1 H RBC 4.28 L Hgb 11.7 L Hct 35.3 L MCV 82.5 MCH 27.3 MCHC 33.1 RDW 15.3 Plt Count 199 D MPV 10.6 Immature Gran % (Auto) Neut % (Auto) Lymph % (Auto) [place] % (Auto) Eos % (Auto) Baso % (Auto) Lymph # (Auto) [place] # (Auto) Eos # (Auto) Baso # (Auto) Abs Immat Gran (auto) Absolute Neuts (auto) Absolute Nucleated RBC 0.000 Nucleated RBC % (auto) 0.0 PT INR D-Dimer High Sensitivty O2 Saturation ABG pH at Pt Temp ABG pCO2 at Pt Temp ABG pO2 at Pt Temp ABG HCO3 ABG Base Excess (Actual) VBG pH VBG pCO2 VBG pO2 VBG HCO3 VBG O2 Saturation VBG Base Excess Sodium 144 Potassium 3.3 Chloride 112 H Carbon Dioxide 22 Anion Gap 13 BUN 8 L Creatinine 0.75 Estim Creat Clear Calc 107.3 Estimated GFR > 60 POC Glucose 173 H Random Glucose 168 H Fasting Glucose Lactic Acid Lactic Acid F/U @ 2Hr Lactic Acid F/U @ 4Hr Calcium 9.4 Phosphorus Magnesium Total Bilirubin Direct Bilirubin AST ALT Alkaline Phosphatase Lactate Dehydrogenase Troponin I High Sens B-Natriuretic Peptide Total Protein Albumin Beta-Hydroxybutyrate TSH Urine Color Urine Appearance Urine pH Ur Specific [place] Urine Protein Urine Glucose (UA) Urine Ketones Urine Blood Urine Nitrite Ur Leukocyte Esterase Urine RBC Urine WBC Ur Squamous Epith Cells Urine Bacteria Hyaline Casts Urine Yeast Vancomycin Trough Random Vancomycin Blood Type Antibody Screen Crossmatch 02/26/23 02/26/23 02/26/23 11:29 15:47 17:38 WBC RBC Hgb Hct MCV MCH MCHC RDW Plt Count MPV Immature Gran % (Auto) Neut % (Auto) Lymph % (Auto) [place] % (Auto) Eos % (Auto) Baso % (Auto) Lymph # (Auto) [place] # (Auto) Eos # (Auto) Baso # (Auto) Abs Immat Gran (auto) Absolute Neuts (auto) Absolute Nucleated RBC Nucleated RBC % (auto) PT INR D-Dimer High Sensitivty O2 Saturation ABG pH at Pt Temp ABG pCO2 at Pt Temp ABG pO2 at Pt Temp ABG HCO3 ABG Base Excess (Actual) VBG pH VBG pCO2 VBG pO2 VBG HCO3 VBG O2 Saturation VBG Base Excess Sodium Potassium Chloride Carbon Dioxide Anion Gap BUN Creatinine Estim Creat Clear Calc Estimated GFR POC Glucose 176 H 272 H 297 H Random Glucose Fasting Glucose Lactic Acid Lactic Acid F/U @ 2Hr Lactic Acid F/U @ 4Hr Calcium Phosphorus Magnesium Total Bilirubin Direct Bilirubin AST ALT Alkaline Phosphatase Lactate Dehydrogenase Troponin I High Sens B-Natriuretic Peptide Total Protein Albumin Beta-Hydroxybutyrate TSH Urine Color Urine Appearance Urine pH Ur Specific [place] Urine Protein Urine Glucose (UA) Urine Ketones Urine Blood Urine Nitrite Ur Leukocyte Esterase Urine RBC Urine WBC Ur Squamous Epith Cells Urine Bacteria Hyaline Casts Urine Yeast Vancomycin Trough Random Vancomycin Blood Type Antibody Screen Crossmatch 02/27/23 02/27/23 02/27/23 00:27 06:28 11:06 WBC RBC Hgb Hct MCV MCH MCHC RDW Plt Count MPV Immature Gran % (Auto) Neut % (Auto) Lymph % (Auto) [place] % (Auto) Eos % (Auto) Baso % (Auto) Lymph # (Auto) [place] # (Auto) Eos # (Auto) Baso # (Auto) Abs Immat Gran (auto) Absolute Neuts (auto) Absolute Nucleated RBC Nucleated RBC % (auto) PT INR D-Dimer High Sensitivty O2 Saturation ABG pH at Pt Temp ABG pCO2 at Pt Temp ABG pO2 at Pt Temp ABG HCO3 ABG Base Excess (Actual) VBG pH VBG pCO2 VBG pO2 VBG HCO3 VBG O2 Saturation VBG Base Excess Sodium Potassium Chloride Carbon Dioxide Anion Gap BUN Creatinine Estim Creat Clear Calc Estimated GFR POC Glucose 179 H 227 H 178 H Random Glucose Fasting Glucose Lactic Acid Lactic Acid F/U @ 2Hr Lactic Acid F/U @ 4Hr Calcium Phosphorus Magnesium Total Bilirubin Direct Bilirubin AST ALT Alkaline Phosphatase Lactate Dehydrogenase Troponin I High Sens B-Natriuretic Peptide Total Protein Albumin Beta-Hydroxybutyrate TSH Urine Color Urine Appearance Urine pH Ur Specific [place] Urine Protein Urine Glucose (UA) Urine Ketones Urine Blood Urine Nitrite Ur Leukocyte Esterase Urine RBC Urine WBC Ur Squamous Epith Cells Urine Bacteria Hyaline Casts Urine Yeast Vancomycin Trough Random Vancomycin Blood Type Antibody Screen Crossmatch 02/27/23 02/28/23 02/28/23 16:47 00:32 06:06 WBC RBC Hgb Hct MCV MCH MCHC RDW Plt Count MPV Immature Gran % (Auto) Neut % (Auto) Lymph % (Auto) [place] % (Auto) Eos % (Auto) Baso % (Auto) Lymph # (Auto) [place] # (Auto) Eos # (Auto) Baso # (Auto) Abs Immat Gran (auto) Absolute Neuts (auto) Absolute Nucleated RBC Nucleated RBC % (auto) PT INR D-Dimer High Sensitivty O2 Saturation ABG pH at Pt Temp ABG pCO2 at Pt Temp ABG pO2 at Pt Temp ABG HCO3 ABG Base Excess (Actual) VBG pH VBG pCO2 VBG pO2 VBG HCO3 VBG O2 Saturation VBG Base Excess Sodium Potassium Chloride Carbon Dioxide Anion Gap BUN Creatinine Estim Creat Clear Calc Estimated GFR POC Glucose 321 H 178 H 155 H Random Glucose Fasting Glucose Lactic Acid Lactic Acid F/U @ 2Hr Lactic Acid F/U @ 4Hr Calcium Phosphorus Magnesium Total Bilirubin Direct Bilirubin AST ALT Alkaline Phosphatase Lactate Dehydrogenase Troponin I High Sens B-Natriuretic Peptide Total Protein Albumin Beta-Hydroxybutyrate TSH Urine Color Urine Appearance Urine pH Ur Specific [place] Urine Protein Urine Glucose (UA) Urine Ketones Urine Blood Urine Nitrite Ur Leukocyte Esterase Urine RBC Urine WBC Ur Squamous Epith Cells Urine Bacteria Hyaline Casts Urine Yeast Vancomycin Trough Random Vancomycin Blood Type Antibody Screen Crossmatch 02/28/23 02/28/23 02/28/23 06:41 11:35 14:49 WBC RBC Hgb Hct MCV MCH MCHC RDW Plt Count MPV Immature Gran % (Auto) Neut % (Auto) Lymph % (Auto) [place] % (Auto) Eos % (Auto) Baso % (Auto) Lymph # (Auto) [place] # (Auto) Eos # (Auto) Baso # (Auto) Abs Immat Gran (auto) Absolute Neuts (auto) Absolute Nucleated RBC Nucleated RBC % (auto) PT INR D-Dimer High Sensitivty O2 Saturation ABG pH at Pt Temp ABG pCO2 at Pt Temp ABG pO2 at Pt Temp ABG HCO3 ABG Base Excess (Actual) VBG pH VBG pCO2 VBG pO2 VBG HCO3 VBG O2 Saturation VBG Base Excess Sodium 141 Potassium 4.3 D Chloride 109 H Carbon Dioxide 22 Anion Gap 14 BUN 10 Creatinine 0.78 Estim Creat Clear Calc 103.2 Estimated GFR > 60 POC Glucose 178 H 175 H Random Glucose 157 H Fasting Glucose Lactic Acid Lactic Acid F/U @ 2Hr Lactic Acid F/U @ 4Hr Calcium 9.2 Phosphorus Magnesium Total Bilirubin Direct Bilirubin AST ALT Alkaline Phosphatase Lactate Dehydrogenase Troponin I High Sens B-Natriuretic Peptide Total Protein Albumin Beta-Hydroxybutyrate TSH Urine Color Urine Appearance Urine pH Ur Specific [place] Urine Protein Urine Glucose (UA) Urine Ketones Urine Blood Urine Nitrite Ur Leukocyte Esterase Urine RBC Urine WBC Ur Squamous Epith Cells Urine Bacteria Hyaline Casts Urine Yeast Vancomycin Trough Random Vancomycin Blood Type Antibody Screen Crossmatch 02/28/23 03/01/23 03/01/23 18:04 00:24 05:15 WBC RBC Hgb Hct MCV MCH MCHC RDW Plt Count MPV Immature Gran % (Auto) Neut % (Auto) Lymph % (Auto) [place] % (Auto) Eos % (Auto) Baso % (Auto) Lymph # (Auto) [place] # (Auto) Eos # (Auto) Baso # (Auto) Abs Immat Gran (auto) Absolute Neuts (auto) Absolute Nucleated RBC Nucleated RBC % (auto) PT INR D-Dimer High Sensitivty O2 Saturation ABG pH at Pt Temp ABG pCO2 at Pt Temp ABG pO2 at Pt Temp ABG HCO3 ABG Base Excess (Actual) VBG pH VBG pCO2 VBG pO2 VBG HCO3 VBG O2 Saturation VBG Base Excess Sodium Potassium Chloride Carbon Dioxide Anion Gap BUN Creatinine Estim Creat Clear Calc Estimated GFR POC Glucose 141 H 151 H 133 H Random Glucose Fasting Glucose Lactic Acid Lactic Acid F/U @ 2Hr Lactic Acid F/U @ 4Hr Calcium Phosphorus Magnesium Total Bilirubin Direct Bilirubin AST ALT Alkaline Phosphatase Lactate Dehydrogenase Troponin I High Sens B-Natriuretic Peptide Total Protein Albumin Beta-Hydroxybutyrate TSH Urine Color Urine Appearance Urine pH Ur Specific [place] Urine Protein Urine Glucose (UA) Urine Ketones Urine Blood Urine Nitrite Ur Leukocyte Esterase Urine RBC Urine WBC Ur Squamous Epith Cells Urine Bacteria Hyaline Casts Urine Yeast Vancomycin Trough Random Vancomycin Blood Type Antibody Screen Crossmatch 03/01/23 03/01/23 03/01/23 06:39 06:39 06:39 WBC 13.4 H RBC 4.00 L Hgb 10.9 L Hct 33.9 L MCV 84.8 MCH 27.3 MCHC 32.2 RDW 15.8 Plt Count 226 MPV 10.2 Immature Gran % (Auto) Neut % (Auto) Lymph % (Auto) [place] % (Auto) Eos % (Auto) Baso % (Auto) Lymph # (Auto) [place] # (Auto) Eos # (Auto) Baso # (Auto) Abs Immat Gran (auto) Absolute Neuts (auto) Absolute Nucleated RBC 0.000 Nucleated RBC % (auto) 0.0 PT INR D-Dimer High Sensitivty O2 Saturation ABG pH at Pt Temp ABG pCO2 at Pt Temp ABG pO2 at Pt Temp ABG HCO3 ABG Base Excess (Actual) VBG pH VBG pCO2 VBG pO2 VBG HCO3 VBG O2 Saturation VBG Base Excess Sodium 144 Potassium 3.9 Chloride 113 H Carbon Dioxide 19 L Anion Gap 16 BUN 11 Creatinine 0.74 Estim Creat Clear Calc 108.8 Estimated GFR > 60 POC Glucose Random Glucose 143 H Fasting Glucose Lactic Acid Lactic Acid F/U @ 2Hr Lactic Acid F/U @ 4Hr Calcium 8.6 D Phosphorus Magnesium 1.8 Total Bilirubin Direct Bilirubin AST ALT Alkaline Phosphatase Lactate Dehydrogenase Troponin I High Sens B-Natriuretic Peptide Total Protein Albumin Beta-Hydroxybutyrate TSH 2.28 Urine Color Urine Appearance Urine pH Ur Specific [place] Urine Protein Urine Glucose (UA) Urine Ketones Urine Blood Urine Nitrite Ur Leukocyte Esterase Urine RBC Urine WBC Ur Squamous Epith Cells Urine Bacteria Hyaline Casts Urine Yeast Vancomycin Trough Random Vancomycin Blood Type Antibody Screen Crossmatch 03/01/23 03/01/23 03/02/23 11:05 16:06 00:53 WBC RBC Hgb Hct MCV MCH MCHC RDW Plt Count MPV Immature Gran % (Auto) Neut % (Auto) Lymph % (Auto) [place] % (Auto) Eos % (Auto) Baso % (Auto) Lymph # (Auto) [place] # (Auto) Eos # (Auto) Baso # (Auto) Abs Immat Gran (auto) Absolute Neuts (auto) Absolute Nucleated RBC Nucleated RBC % (auto) PT INR D-Dimer High Sensitivty O2 Saturation ABG pH at Pt Temp ABG pCO2 at Pt Temp ABG pO2 at Pt Temp ABG HCO3 ABG Base Excess (Actual) VBG pH VBG pCO2 VBG pO2 VBG HCO3 VBG O2 Saturation VBG Base Excess Sodium Potassium Chloride Carbon Dioxide Anion Gap BUN Creatinine Estim Creat Clear Calc Estimated GFR POC Glucose 208 H 189 H 289 H Random Glucose Fasting Glucose Lactic Acid Lactic Acid F/U @ 2Hr Lactic Acid F/U @ 4Hr Calcium Phosphorus Magnesium Total Bilirubin Direct Bilirubin AST ALT Alkaline Phosphatase Lactate Dehydrogenase Troponin I High Sens B-Natriuretic Peptide Total Protein Albumin Beta-Hydroxybutyrate TSH Urine Color Urine Appearance Urine pH Ur Specific [place] Urine Protein Urine Glucose (UA) Urine Ketones Urine Blood Urine Nitrite Ur Leukocyte Esterase Urine RBC Urine WBC Ur Squamous Epith Cells Urine Bacteria Hyaline Casts Urine Yeast Vancomycin Trough Random Vancomycin Blood Type Antibody Screen Crossmatch 03/02/23 03/02/23 03/02/23 05:33 08:16 09:21 WBC RBC Hgb Hct MCV MCH MCHC RDW Plt Count MPV Immature Gran % (Auto) Neut % (Auto) Lymph % (Auto) [place] % (Auto) Eos % (Auto) Baso % (Auto) Lymph # (Auto) [place] # (Auto) Eos # (Auto) Baso # (Auto) Abs Immat Gran (auto) Absolute Neuts (auto) Absolute Nucleated RBC Nucleated RBC % (auto) PT INR D-Dimer High Sensitivty O2 Saturation ABG pH at Pt Temp ABG pCO2 at Pt Temp ABG pO2 at Pt Temp ABG HCO3 ABG Base Excess (Actual) VBG pH VBG pCO2 VBG pO2 VBG HCO3 VBG O2 Saturation VBG Base Excess Sodium Potassium Chloride Carbon Dioxide Anion Gap BUN Creatinine Estim Creat Clear Calc Estimated GFR POC Glucose 160 H 155 H Random Glucose Fasting Glucose Lactic Acid 0.8 Lactic Acid F/U @ 2Hr Lactic Acid F/U @ 4Hr Calcium Phosphorus Magnesium Total Bilirubin Direct Bilirubin AST ALT Alkaline Phosphatase Lactate Dehydrogenase Troponin I High Sens B-Natriuretic Peptide Total Protein Albumin Beta-Hydroxybutyrate TSH Urine Color Urine Appearance Urine pH Ur Specific [place] Urine Protein Urine Glucose (UA) Urine Ketones Urine Blood Urine Nitrite Ur Leukocyte Esterase Urine RBC Urine WBC Ur Squamous Epith Cells Urine Bacteria Hyaline Casts Urine Yeast Vancomycin Trough Random Vancomycin Blood Type Antibody Screen Crossmatch 03/02/23 03/02/23 03/02/23 11:03 14:58 15:55 WBC RBC Hgb Hct MCV MCH MCHC RDW Plt Count MPV Immature Gran % (Auto) Neut % (Auto) Lymph % (Auto) [place] % (Auto) Eos % (Auto) Baso % (Auto) Lymph # (Auto) [place] # (Auto) Eos # (Auto) Baso # (Auto) Abs Immat Gran (auto) Absolute Neuts (auto) Absolute Nucleated RBC Nucleated RBC % (auto) PT INR D-Dimer High Sensitivty O2 Saturation ABG pH at Pt Temp ABG pCO2 at Pt Temp ABG pO2 at Pt Temp ABG HCO3 ABG Base Excess (Actual) VBG pH VBG pCO2 VBG pO2 VBG HCO3 VBG O2 Saturation VBG Base Excess Sodium Potassium Chloride Carbon Dioxide Anion Gap BUN Creatinine 0.63 Estim Creat Clear Calc 127.8 Estimated GFR > 60 POC Glucose 136 H 132 H Random Glucose Fasting Glucose Lactic Acid Lactic Acid F/U @ 2Hr Lactic Acid F/U @ 4Hr Calcium Phosphorus Magnesium Total Bilirubin Direct Bilirubin AST ALT Alkaline Phosphatase Lactate Dehydrogenase Troponin I High Sens B-Natriuretic Peptide Total Protein Albumin Beta-Hydroxybutyrate TSH Urine Color Urine Appearance Urine pH Ur Specific [place] Urine Protein Urine Glucose (UA) Urine Ketones Urine Blood Urine Nitrite Ur Leukocyte Esterase Urine RBC Urine WBC Ur Squamous Epith Cells Urine Bacteria Hyaline Casts Urine Yeast Vancomycin Trough Random Vancomycin Blood Type Antibody Screen Crossmatch 03/02/23 03/02/23 03/03/23 16:54 16:55 00:13 WBC RBC Hgb Hct MCV MCH MCHC RDW Plt Count MPV Immature Gran % (Auto) Neut % (Auto) Lymph % (Auto) [place] % (Auto) Eos % (Auto) Baso % (Auto) Lymph # (Auto) [place] # (Auto) Eos # (Auto) Baso # (Auto) Abs Immat Gran (auto) Absolute Neuts (auto) Absolute Nucleated RBC Nucleated RBC % (auto) PT INR D-Dimer High Sensitivty O2 Saturation ABG pH at Pt Temp ABG pCO2 at Pt Temp ABG pO2 at Pt Temp ABG HCO3 ABG Base Excess (Actual) VBG pH 7.42 VBG pCO2 22 VBG pO2 107 VBG HCO3 15 L VBG O2 Saturation 99.0 VBG Base Excess -7.7 Sodium 147 H Potassium 3.3 Chloride 121 H Carbon Dioxide 17 L Anion Gap 12 BUN 14 Creatinine 0.63 Estim Creat Clear Calc 127.8 Estimated GFR > 60 POC Glucose 111 Random Glucose 143 H Fasting Glucose Lactic Acid Lactic Acid F/U @ 2Hr Lactic Acid F/U @ 4Hr Calcium 7.7 L D Phosphorus 1.7 L Magnesium Total Bilirubin 0.7 Direct Bilirubin 0.4 AST 18 ALT 13 Alkaline Phosphatase 66 Lactate Dehydrogenase Troponin I High Sens B-Natriuretic Peptide Total Protein 5.3 L Albumin 2.7 L Beta-Hydroxybutyrate TSH Urine Color Urine Appearance Urine pH Ur Specific [place] Urine Protein Urine Glucose (UA) Urine Ketones Urine Blood Urine Nitrite Ur Leukocyte Esterase Urine RBC Urine WBC Ur Squamous Epith Cells Urine Bacteria Hyaline Casts Urine Yeast Vancomycin Trough Random Vancomycin Blood Type Antibody Screen Crossmatch 03/03/23 03/03/23 03/03/23 06:11 06:55 06:55 WBC 16.3 H RBC 3.23 L Hgb 8.8 L Hct 28.4 L MCV 87.9 MCH 27.2 MCHC 31.0 RDW 16.2 H Plt Count 280 MPV 10.3 Immature Gran % (Auto) Neut % (Auto) Lymph % (Auto) [place] % (Auto) Eos % (Auto) Baso % (Auto) Lymph # (Auto) [place] # (Auto) Eos # (Auto) Baso # (Auto) Abs Immat Gran (auto) Absolute Neuts (auto) Absolute Nucleated RBC 0.000 Nucleated RBC % (auto) 0.0 PT INR D-Dimer High Sensitivty O2 Saturation ABG pH at Pt Temp ABG pCO2 at Pt Temp ABG pO2 at Pt Temp ABG HCO3 ABG Base Excess (Actual) VBG pH VBG pCO2 VBG pO2 VBG HCO3 VBG O2 Saturation VBG Base Excess Sodium 148 H Potassium 3.6 Chloride 120 H Carbon Dioxide 10 L* D Anion Gap 22 H BUN 10 Creatinine 0.73 Estim Creat Clear Calc 110.3 Estimated GFR > 60 POC Glucose 122 H Random Glucose 125 H Fasting Glucose Lactic Acid Lactic Acid F/U @ 2Hr Lactic Acid F/U @ 4Hr Calcium 8.4 D Phosphorus Magnesium Total Bilirubin Direct Bilirubin AST ALT Alkaline Phosphatase Lactate Dehydrogenase Troponin I High Sens B-Natriuretic Peptide Total Protein Albumin Beta-Hydroxybutyrate TSH Urine Color Urine Appearance Urine pH Ur Specific [place] Urine Protein Urine Glucose (UA) Urine Ketones Urine Blood Urine Nitrite Ur Leukocyte Esterase Urine RBC Urine WBC Ur Squamous Epith Cells Urine Bacteria Hyaline Casts Urine Yeast Vancomycin Trough Random Vancomycin Blood Type Antibody Screen Crossmatch 03/03/23 03/03/23 03/03/23 06:55 08:13 08:24 WBC RBC Hgb Hct MCV MCH MCHC RDW Plt Count MPV Immature Gran % (Auto) Neut % (Auto) Lymph % (Auto) [place] % (Auto) Eos % (Auto) Baso % (Auto) Lymph # (Auto) [place] # (Auto) Eos # (Auto) Baso # (Auto) Abs Immat Gran (auto) Absolute Neuts (auto) Absolute Nucleated RBC Nucleated RBC % (auto) PT INR D-Dimer High Sensitivty O2 Saturation 97.0 ABG pH at Pt Temp 7.31 L ABG pCO2 at Pt Temp 16 L* ABG pO2 at Pt Temp 92 ABG HCO3 8 L ABG Base Excess (Actual) -15.1 VBG pH VBG pCO2 VBG pO2 VBG HCO3 VBG O2 Saturation VBG Base Excess Sodium Potassium Chloride Carbon Dioxide Anion Gap BUN Creatinine 0.74 Estim Creat Clear Calc 108.8 Estimated GFR > 60 POC Glucose Random Glucose Fasting Glucose Lactic Acid 1.7 Lactic Acid F/U @ 2Hr Lactic Acid F/U @ 4Hr Calcium Phosphorus Magnesium Total Bilirubin 0.9 Direct Bilirubin 0.4 AST 24 ALT 11 Alkaline Phosphatase 60 Lactate Dehydrogenase Troponin I High Sens B-Natriuretic Peptide Total Protein 6.0 L Albumin 3.6 Beta-Hydroxybutyrate TSH Urine Color Urine Appearance Urine pH Ur Specific [place] Urine Protein Urine Glucose (UA) Urine Ketones Urine Blood Urine Nitrite Ur Leukocyte Esterase Urine RBC Urine WBC Ur Squamous Epith Cells Urine Bacteria Hyaline Casts Urine Yeast Vancomycin Trough Random Vancomycin Blood Type Antibody Screen Crossmatch 03/03/23 03/03/23 03/03/23 08:28 09:55 11:05 WBC RBC Hgb Hct MCV MCH MCHC RDW Plt Count MPV Immature Gran % (Auto) Neut % (Auto) Lymph % (Auto) [place] % (Auto) Eos % (Auto) Baso % (Auto) Lymph # (Auto) [place] # (Auto) Eos # (Auto) Baso # (Auto) Abs Immat Gran (auto) Absolute Neuts (auto) Absolute Nucleated RBC Nucleated RBC % (auto) PT INR D-Dimer High Sensitivty O2 Saturation ABG pH at Pt Temp ABG pCO2 at Pt Temp ABG pO2 at Pt Temp ABG HCO3 ABG Base Excess (Actual) VBG pH 7.34 VBG pCO2 14 VBG pO2 165 VBG HCO3 8 L VBG O2 Saturation 99.0 VBG Base Excess -15.2 Sodium 149 H Potassium 3.5 Chloride 121 H Carbon Dioxide 9 L* Anion Gap 23 H BUN 12 Creatinine 0.84 Estim Creat Clear Calc 95.8 Estimated GFR > 60 POC Glucose 176 H Random Glucose 156 H Fasting Glucose Lactic Acid Lactic Acid F/U @ 2Hr Lactic Acid F/U @ 4Hr Calcium 8.4 Phosphorus Magnesium Total Bilirubin Direct Bilirubin AST ALT Alkaline Phosphatase Lactate Dehydrogenase Troponin I High Sens B-Natriuretic Peptide Total Protein Albumin Beta-Hydroxybutyrate TSH Urine Color Urine Appearance Urine pH Ur Specific [place] Urine Protein Urine Glucose (UA) Urine Ketones Urine Blood Urine Nitrite Ur Leukocyte Esterase Urine RBC Urine WBC Ur Squamous Epith Cells Urine Bacteria Hyaline Casts Urine Yeast Vancomycin Trough Random Vancomycin Blood Type Antibody Screen Crossmatch 03/03/23 03/03/23 03/03/23 13:11 14:59 17:41 WBC RBC Hgb Hct MCV MCH MCHC RDW Plt Count MPV Immature Gran % (Auto) Neut % (Auto) Lymph % (Auto) [place] % (Auto) Eos % (Auto) Baso % (Auto) Lymph # (Auto) [place] # (Auto) Eos # (Auto) Baso # (Auto) Abs Immat Gran (auto) Absolute Neuts (auto) Absolute Nucleated RBC Nucleated RBC % (auto) PT INR D-Dimer High Sensitivty O2 Saturation ABG pH at Pt Temp ABG pCO2 at Pt Temp ABG pO2 at Pt Temp ABG HCO3 ABG Base Excess (Actual) VBG pH VBG pCO2 VBG pO2 VBG HCO3 VBG O2 Saturation VBG Base Excess Sodium 149 H Potassium 3.4 Chloride 121 H Carbon Dioxide 11 L Anion Gap 20 BUN 12 Creatinine 0.88 Estim Creat Clear Calc 91.5 Estimated GFR > 60 POC Glucose 149 H Random Glucose 180 H Fasting Glucose Lactic Acid Lactic Acid F/U @ 2Hr Lactic Acid F/U @ 4Hr Calcium 8.5 Phosphorus Magnesium Total Bilirubin Direct Bilirubin AST ALT Alkaline Phosphatase Lactate Dehydrogenase Troponin I High Sens B-Natriuretic Peptide Total Protein Albumin Beta-Hydroxybutyrate 5.69 H TSH Urine Color Urine Appearance Urine pH Ur Specific [place] Urine Protein Urine Glucose (UA) Urine Ketones Urine Blood Urine Nitrite Ur Leukocyte Esterase Urine RBC Urine WBC Ur Squamous Epith Cells Urine Bacteria Hyaline Casts Urine Yeast Vancomycin Trough Random Vancomycin Blood Type Antibody Screen Crossmatch 03/03/23 03/03/23 03/03/23 21:13 21:13 23:41 WBC RBC Hgb Hct MCV MCH MCHC RDW Plt Count MPV Immature Gran % (Auto) Neut % (Auto) Lymph % (Auto) [place] % (Auto) Eos % (Auto) Baso % (Auto) Lymph # (Auto) [place] # (Auto) Eos # (Auto) Baso # (Auto) Abs Immat Gran (auto) Absolute Neuts (auto) Absolute Nucleated RBC Nucleated RBC % (auto) PT INR D-Dimer High Sensitivty O2 Saturation ABG pH at Pt Temp ABG pCO2 at Pt Temp ABG pO2 at Pt Temp ABG HCO3 ABG Base Excess (Actual) VBG pH VBG pCO2 VBG pO2 VBG HCO3 VBG O2 Saturation VBG Base Excess Sodium 148 H Potassium 3.0 L Chloride 120 H Carbon Dioxide 15 L Anion Gap 16 BUN 10 Creatinine 0.83 Estim Creat Clear Calc 97.0 Estimated GFR > 60 POC Glucose 159 H Random Glucose 164 H Fasting Glucose Lactic Acid Lactic Acid F/U @ 2Hr Lactic Acid F/U @ 4Hr Calcium 8.6 Phosphorus Magnesium Total Bilirubin Direct Bilirubin AST ALT Alkaline Phosphatase Lactate Dehydrogenase Troponin I High Sens B-Natriuretic Peptide Total Protein Albumin Beta-Hydroxybutyrate TSH Urine Color Urine Appearance Urine pH Ur Specific [place] Urine Protein Urine Glucose (UA) Urine Ketones Urine Blood Urine Nitrite Ur Leukocyte Esterase Urine RBC Urine WBC Ur Squamous Epith Cells Urine Bacteria Hyaline Casts Urine Yeast Vancomycin Trough 11.0 Random Vancomycin Blood Type Antibody Screen Crossmatch 03/04/23 03/04/23 03/04/23 05:52 06:52 06:52 WBC 12.7 H RBC 3.24 L Hgb 8.8 L Hct 27.6 L MCV 85.2 MCH 27.2 MCHC 31.9 RDW 16.5 H Plt Count 323 MPV 9.9 Immature Gran % (Auto) Neut % (Auto) Lymph % (Auto) [place] % (Auto) Eos % (Auto) Baso % (Auto) Lymph # (Auto) [place] # (Auto) Eos # (Auto) Baso # (Auto) Abs Immat Gran (auto) Absolute Neuts (auto) 10.4 H Absolute Nucleated RBC 0.000 Nucleated RBC % (auto) 0.0 PT INR D-Dimer High Sensitivty O2 Saturation ABG pH at Pt Temp ABG pCO2 at Pt Temp ABG pO2 at Pt Temp ABG HCO3 ABG Base Excess (Actual) VBG pH VBG pCO2 VBG pO2 VBG HCO3 VBG O2 Saturation VBG Base Excess Sodium 149 H Potassium 2.8 L Chloride 117 H Carbon Dioxide 19 L Anion Gap 16 BUN 9 Creatinine 0.85 Estim Creat Clear Calc 94.7 Estimated GFR > 60 POC Glucose 172 H Random Glucose 186 H Fasting Glucose Lactic Acid Lactic Acid F/U @ 2Hr Lactic Acid F/U @ 4Hr Calcium 8.6 Phosphorus Magnesium Total Bilirubin Direct Bilirubin AST ALT Alkaline Phosphatase Lactate Dehydrogenase Troponin I High Sens B-Natriuretic Peptide Total Protein Albumin Beta-Hydroxybutyrate TSH Urine Color Urine Appearance Urine pH Ur Specific [place] Urine Protein Urine Glucose (UA) Urine Ketones Urine Blood Urine Nitrite Ur Leukocyte Esterase Urine RBC Urine WBC Ur Squamous Epith Cells Urine Bacteria Hyaline Casts Urine Yeast Vancomycin Trough Random Vancomycin Blood Type Antibody Screen Crossmatch 03/04/23 03/04/23 03/04/23 06:52 12:03 15:41 WBC RBC Hgb Hct MCV MCH MCHC RDW Plt Count MPV Immature Gran % (Auto) Neut % (Auto) Lymph % (Auto) [place] % (Auto) Eos % (Auto) Baso % (Auto) Lymph # (Auto) [place] # (Auto) Eos # (Auto) Baso # (Auto) Abs Immat Gran (auto) Absolute Neuts (auto) Absolute Nucleated RBC Nucleated RBC % (auto) PT INR D-Dimer High Sensitivty O2 Saturation ABG pH at Pt Temp ABG pCO2 at Pt Temp ABG pO2 at Pt Temp ABG HCO3 ABG Base Excess (Actual) VBG pH VBG pCO2 VBG pO2 VBG HCO3 VBG O2 Saturation VBG Base Excess Sodium 147 H Potassium 3.0 L Chloride 117 H Carbon Dioxide 20 L Anion Gap 13 BUN 6 L Creatinine 0.88 0.78 Estim Creat Clear Calc 91.5 103.2 Estimated GFR > 60 > 60 POC Glucose 173 H Random Glucose 175 H Fasting Glucose Lactic Acid Lactic Acid F/U @ 2Hr Lactic Acid F/U @ 4Hr Calcium 8.2 L Phosphorus 1.5 L Magnesium 1.8 Total Bilirubin 0.8 Direct Bilirubin 0.4 AST 23 ALT 12 Alkaline Phosphatase 60 Lactate Dehydrogenase 198 Troponin I High Sens B-Natriuretic Peptide Total Protein 5.5 L Albumin 3.1 L Beta-Hydroxybutyrate TSH Urine Color Urine Appearance Urine pH Ur Specific [place] Urine Protein Urine Glucose (UA) Urine Ketones Urine Blood Urine Nitrite Ur Leukocyte Esterase Urine RBC Urine WBC Ur Squamous Epith Cells Urine Bacteria Hyaline Casts Urine Yeast Vancomycin Trough Random Vancomycin Blood Type Antibody Screen Crossmatch 03/04/23 03/04/23 03/04/23 18:02 21:35 21:35 WBC RBC Hgb Hct MCV MCH MCHC RDW Plt Count MPV Immature Gran % (Auto) Neut % (Auto) Lymph % (Auto) [place] % (Auto) Eos % (Auto) Baso % (Auto) Lymph # (Auto) [place] # (Auto) Eos # (Auto) Baso # (Auto) Abs Immat Gran (auto) Absolute Neuts (auto) Absolute Nucleated RBC Nucleated RBC % (auto) PT INR D-Dimer High Sensitivty O2 Saturation ABG pH at Pt Temp ABG pCO2 at Pt Temp ABG pO2 at Pt Temp ABG HCO3 ABG Base Excess (Actual) VBG pH VBG pCO2 VBG pO2 VBG HCO3 VBG O2 Saturation VBG Base Excess Sodium 140 Potassium 3.3 Chloride 113 H Carbon Dioxide 20 L Anion Gap 10 L BUN 6 L Creatinine 0.78 Estim Creat Clear Calc 103.2 Estimated GFR > 60 POC Glucose 160 H Random Glucose 371 H* Fasting Glucose Lactic Acid Lactic Acid F/U @ 2Hr Lactic Acid F/U @ 4Hr Calcium 7.9 L Phosphorus Magnesium Total Bilirubin Direct Bilirubin AST ALT Alkaline Phosphatase Lactate Dehydrogenase Troponin I High Sens B-Natriuretic Peptide Total Protein Albumin Beta-Hydroxybutyrate TSH Urine Color Urine Appearance Urine pH Ur Specific [place] Urine Protein Urine Glucose (UA) Urine Ketones Urine Blood Urine Nitrite Ur Leukocyte Esterase Urine RBC Urine WBC Ur Squamous Epith Cells Urine Bacteria Hyaline Casts Urine Yeast Vancomycin Trough Random Vancomycin 8.9 L Blood Type Antibody Screen Crossmatch 03/04/23 03/05/23 03/05/23 23:37 05:29 05:29 WBC 11.2 H RBC 3.36 L Hgb 9.0 L Hct 28.3 L MCV 84.2 MCH 26.8 L MCHC 31.8 RDW 16.8 H Plt Count 339 MPV 10.0 Immature Gran % (Auto) Neut % (Auto) Lymph % (Auto) [place] % (Auto) Eos % (Auto) Baso % (Auto) Lymph # (Auto) [place] # (Auto) Eos # (Auto) Baso # (Auto) Abs Immat Gran (auto) Absolute Neuts (auto) Absolute Nucleated RBC 0.020 H Nucleated RBC % (auto) 0.2 PT INR D-Dimer High Sensitivty O2 Saturation ABG pH at Pt Temp ABG pCO2 at Pt Temp ABG pO2 at Pt Temp ABG HCO3 ABG Base Excess (Actual) VBG pH VBG pCO2 VBG pO2 VBG HCO3 VBG O2 Saturation VBG Base Excess Sodium 146 H Potassium 3.1 L Chloride 118 H Carbon Dioxide 18 L Anion Gap 13 BUN 6 L Creatinine 0.71 Estim Creat Clear Calc 113.4 Estimated GFR > 60 POC Glucose 172 H Random Glucose 189 H Fasting Glucose Lactic Acid Lactic Acid F/U @ 2Hr Lactic Acid F/U @ 4Hr Calcium 8.3 L Phosphorus Magnesium Total Bilirubin Direct Bilirubin AST ALT Alkaline Phosphatase Lactate Dehydrogenase Troponin I High Sens B-Natriuretic Peptide Total Protein Albumin Beta-Hydroxybutyrate TSH Urine Color Urine Appearance Urine pH Ur Specific [place] Urine Protein Urine Glucose (UA) Urine Ketones Urine Blood Urine Nitrite Ur Leukocyte Esterase Urine RBC Urine WBC Ur Squamous Epith Cells Urine Bacteria Hyaline Casts Urine Yeast Vancomycin Trough Random Vancomycin Blood Type Antibody Screen Crossmatch 03/05/23 03/05/23 03/05/23 05:32 07:06 11:58 WBC RBC Hgb Hct MCV MCH MCHC RDW Plt Count MPV Immature Gran % (Auto) Neut % (Auto) Lymph % (Auto) [place] % (Auto) Eos % (Auto) Baso % (Auto) Lymph # (Auto) [place] # (Auto) Eos # (Auto) Baso # (Auto) Abs Immat Gran (auto) Absolute Neuts (auto) Absolute Nucleated RBC Nucleated RBC % (auto) PT INR D-Dimer High Sensitivty O2 Saturation ABG pH at Pt Temp ABG pCO2 at Pt Temp ABG pO2 at Pt Temp ABG HCO3 ABG Base Excess (Actual) VBG pH VBG pCO2 VBG pO2 VBG HCO3 VBG O2 Saturation VBG Base Excess Sodium Potassium Chloride Carbon Dioxide Anion Gap BUN Creatinine Estim Creat Clear Calc Estimated GFR POC Glucose 186 H 169 H 172 H Random Glucose Fasting Glucose Lactic Acid Lactic Acid F/U @ 2Hr Lactic Acid F/U @ 4Hr Calcium Phosphorus Magnesium Total Bilirubin Direct Bilirubin AST ALT Alkaline Phosphatase Lactate Dehydrogenase Troponin I High Sens B-Natriuretic Peptide Total Protein Albumin Beta-Hydroxybutyrate TSH Urine Color Urine Appearance Urine pH Ur Specific [place] Urine Protein Urine Glucose (UA) Urine Ketones Urine Blood Urine Nitrite Ur Leukocyte Esterase Urine RBC Urine WBC Ur Squamous Epith Cells Urine Bacteria Hyaline Casts Urine Yeast Vancomycin Trough Random Vancomycin Blood Type Antibody Screen Crossmatch 03/05/23 03/05/23 03/05/23 15:47 17:15 20:52 WBC RBC Hgb Hct MCV MCH MCHC RDW Plt Count MPV Immature Gran % (Auto) Neut % (Auto) Lymph % (Auto) [place] % (Auto) Eos % (Auto) Baso % (Auto) Lymph # (Auto) [place] # (Auto) Eos # (Auto) Baso # (Auto) Abs Immat Gran (auto) Absolute Neuts (auto) Absolute Nucleated RBC Nucleated RBC % (auto) PT INR D-Dimer High Sensitivty O2 Saturation ABG pH at Pt Temp ABG pCO2 at Pt Temp ABG pO2 at Pt Temp ABG HCO3 ABG Base Excess (Actual) VBG pH VBG pCO2 VBG pO2 VBG HCO3 VBG O2 Saturation VBG Base Excess Sodium 147 H Potassium 3.1 L Chloride 117 H Carbon Dioxide 22 Anion Gap 11 L BUN 6 L Creatinine 0.65 Estim Creat Clear Calc 123.8 Estimated GFR > 60 POC Glucose 179 H Random Glucose 166 H Fasting Glucose Lactic Acid Lactic Acid F/U @ 2Hr Lactic Acid F/U @ 4Hr Calcium 8.3 L Phosphorus Magnesium Total Bilirubin Direct Bilirubin AST ALT Alkaline Phosphatase Lactate Dehydrogenase Troponin I High Sens B-Natriuretic Peptide Total Protein Albumin Beta-Hydroxybutyrate TSH Urine Color Urine Appearance Urine pH Ur Specific [place] Urine Protein Urine Glucose (UA) Urine Ketones Urine Blood Urine Nitrite Ur Leukocyte Esterase Urine RBC Urine WBC Ur Squamous Epith Cells Urine Bacteria Hyaline Casts Urine Yeast Vancomycin Trough Random Vancomycin 12.0 L Blood Type Antibody Screen Crossmatch 03/06/23 03/06/23 03/06/23 00:23 05:36 06:17 WBC RBC Hgb Hct MCV MCH MCHC RDW Plt Count MPV Immature Gran % (Auto) Neut % (Auto) Lymph % (Auto) [place] % (Auto) Eos % (Auto) Baso % (Auto) Lymph # (Auto) [place] # (Auto) Eos # (Auto) Baso # (Auto) Abs Immat Gran (auto) Absolute Neuts (auto) Absolute Nucleated RBC Nucleated RBC % (auto) PT INR D-Dimer High Sensitivty O2 Saturation ABG pH at Pt Temp ABG pCO2 at Pt Temp ABG pO2 at Pt Temp ABG HCO3 ABG Base Excess (Actual) VBG pH VBG pCO2 VBG pO2 VBG HCO3 VBG O2 Saturation VBG Base Excess Sodium Potassium Chloride Carbon Dioxide Anion Gap BUN Creatinine 0.59 Estim Creat Clear Calc 136.4 Estimated GFR > 60 POC Glucose 207 H 139 H Random Glucose Fasting Glucose Lactic Acid Lactic Acid F/U @ 2Hr Lactic Acid F/U @ 4Hr Calcium Phosphorus Magnesium Total Bilirubin Direct Bilirubin AST ALT Alkaline Phosphatase Lactate Dehydrogenase Troponin I High Sens B-Natriuretic Peptide Total Protein Albumin Beta-Hydroxybutyrate TSH Urine Color Urine Appearance Urine pH Ur Specific [place] Urine Protein Urine Glucose (UA) Urine Ketones Urine Blood Urine Nitrite Ur Leukocyte Esterase Urine RBC Urine WBC Ur Squamous Epith Cells Urine Bacteria Hyaline Casts Urine Yeast Vancomycin Trough Random Vancomycin Blood Type Antibody Screen Crossmatch 03/06/23 03/06/23 03/06/23 06:17 06:17 07:48 WBC 8.4 RBC 3.22 L Hgb 8.7 L Hct 26.8 L MCV 83.2 MCH 27.0 MCHC 32.5 RDW 16.8 H Plt Count 366 MPV 10.0 Immature Gran % (Auto) Neut % (Auto) Lymph % (Auto) [place] % (Auto) Eos % (Auto) Baso % (Auto) Lymph # (Auto) [place] # (Auto) Eos # (Auto) Baso # (Auto) Abs Immat Gran (auto) Absolute Neuts (auto) Absolute Nucleated RBC 0.000 Nucleated RBC % (auto) 0.0 PT INR D-Dimer High Sensitivty O2 Saturation ABG pH at Pt Temp ABG pCO2 at Pt Temp ABG pO2 at Pt Temp ABG HCO3 ABG Base Excess (Actual) VBG pH VBG pCO2 VBG pO2 VBG HCO3 VBG O2 Saturation VBG Base Excess Sodium 145 Potassium 3.4 Chloride 118 H Carbon Dioxide 20 L Anion Gap 10 L BUN 6 L Creatinine 0.55 Estim Creat Clear Calc 146.4 Estimated GFR > 60 POC Glucose 191 H Random Glucose 174 H Fasting Glucose Lactic Acid Lactic Acid F/U @ 2Hr Lactic Acid F/U @ 4Hr Calcium 7.9 L Phosphorus Magnesium Total Bilirubin Direct Bilirubin AST ALT Alkaline Phosphatase Lactate Dehydrogenase Troponin I High Sens B-Natriuretic Peptide Total Protein Albumin Beta-Hydroxybutyrate TSH Urine Color Urine Appearance Urine pH Ur Specific [place] Urine Protein Urine Glucose (UA) Urine Ketones Urine Blood Urine Nitrite Ur Leukocyte Esterase Urine RBC Urine WBC Ur Squamous Epith Cells Urine Bacteria Hyaline Casts Urine Yeast Vancomycin Trough Random Vancomycin Blood Type Antibody Screen Crossmatch 03/06/23 03/06/23 03/06/23 11:46 14:24 15:50 WBC RBC Hgb 7.7 L Hct 24.6 L MCV MCH MCHC RDW Plt Count MPV Immature Gran % (Auto) Neut % (Auto) Lymph % (Auto) [place] % (Auto) Eos % (Auto) Baso % (Auto) Lymph # (Auto) [place] # (Auto) Eos # (Auto) Baso # (Auto) Abs Immat Gran (auto) Absolute Neuts (auto) Absolute Nucleated RBC Nucleated RBC % (auto) PT INR D-Dimer High Sensitivty O2 Saturation ABG pH at Pt Temp ABG pCO2 at Pt Temp ABG pO2 at Pt Temp ABG HCO3 ABG Base Excess (Actual) VBG pH VBG pCO2 VBG pO2 VBG HCO3 VBG O2 Saturation VBG Base Excess Sodium Potassium Chloride Carbon Dioxide Anion Gap BUN Creatinine Estim Creat Clear Calc Estimated GFR POC Glucose 213 H Random Glucose Fasting Glucose Lactic Acid Lactic Acid F/U @ 2Hr Lactic Acid F/U @ 4Hr Calcium Phosphorus Magnesium Total Bilirubin Direct Bilirubin AST ALT Alkaline Phosphatase Lactate Dehydrogenase Troponin I High Sens B-Natriuretic Peptide Total Protein Albumin Beta-Hydroxybutyrate TSH Urine Color Urine Appearance Urine pH Ur Specific [place] Urine Protein Urine Glucose (UA) Urine Ketones Urine Blood Urine Nitrite Ur Leukocyte Esterase Urine RBC Urine WBC Ur Squamous Epith Cells Urine Bacteria Hyaline Casts Urine Yeast Vancomycin Trough Random Vancomycin Blood Type O Positive Antibody Screen NEGATIVE Crossmatch See Detail 08/18/23 08/18/23 08/18/23 16:16 17:52 18:45 WBC RBC Hgb Hct MCV MCH MCHC RDW Plt Count MPV Immature Gran % (Auto) Neut % (Auto) Lymph % (Auto) [place] % (Auto) Eos % (Auto) Baso % (Auto) Lymph # (Auto) [place] # (Auto) Eos # (Auto) Baso # (Auto) Abs Immat Gran (auto) Absolute Neuts (auto) Absolute Nucleated RBC Nucleated RBC % (auto) PT INR D-Dimer High Sensitivty O2 Saturation ABG pH at Pt Temp ABG pCO2 at Pt Temp ABG pO2 at Pt Temp ABG HCO3 ABG Base Excess (Actual) VBG pH VBG pCO2 VBG pO2 VBG HCO3 VBG O2 Saturation VBG Base Excess Sodium Potassium Chloride Carbon Dioxide Anion Gap BUN Creatinine Estim Creat Clear Calc Estimated GFR POC Glucose 192 H 182 H Random Glucose Fasting Glucose Lactic Acid Lactic Acid F/U @ 2Hr Lactic Acid F/U @ 4Hr Calcium Phosphorus Magnesium Total Bilirubin Direct Bilirubin AST ALT Alkaline Phosphatase Lactate Dehydrogenase Troponin I High Sens B-Natriuretic Peptide Total Protein Albumin Beta-Hydroxybutyrate TSH Urine Color Urine Appearance Urine pH Ur Specific [place] Urine Protein Urine Glucose (UA) Urine Ketones Urine Blood Urine Nitrite Ur Leukocyte Esterase Urine RBC Urine WBC Ur Squamous Epith Cells Urine Bacteria Hyaline Casts Urine Yeast Vancomycin Trough Random Vancomycin 20.0 Blood Type Antibody Screen Crossmatch 03/06/23 03/07/23 03/07/23 20:49 00:07 06:04 WBC RBC Hgb Hct MCV MCH MCHC RDW Plt Count MPV Immature Gran % (Auto) Neut % (Auto) Lymph % (Auto) [place] % (Auto) Eos % (Auto) Baso % (Auto) Lymph # (Auto) [place] # (Auto) Eos # (Auto) Baso # (Auto) Abs Immat Gran (auto) Absolute Neuts (auto) Absolute Nucleated RBC Nucleated RBC % (auto) PT INR D-Dimer High Sensitivty O2 Saturation ABG pH at Pt Temp ABG pCO2 at Pt Temp ABG pO2 at Pt Temp ABG HCO3 ABG Base Excess (Actual) VBG pH VBG pCO2 VBG pO2 VBG HCO3 VBG O2 Saturation VBG Base Excess Sodium Potassium Chloride Carbon Dioxide Anion Gap BUN Creatinine Estim Creat Clear Calc Estimated GFR POC Glucose 202 H 221 H Random Glucose Fasting Glucose Lactic Acid Lactic Acid F/U @ 2Hr Lactic Acid F/U @ 4Hr Calcium Phosphorus Magnesium Total Bilirubin Direct Bilirubin AST ALT Alkaline Phosphatase Lactate Dehydrogenase Troponin I High Sens B-Natriuretic Peptide Total Protein Albumin Beta-Hydroxybutyrate TSH Urine Color Urine Appearance Urine pH Ur Specific [place] Urine Protein Urine Glucose (UA) Urine Ketones Urine Blood Urine Nitrite Ur Leukocyte Esterase Urine RBC Urine WBC Ur Squamous Epith Cells Urine Bacteria Hyaline Casts Urine Yeast Vancomycin Trough Random Vancomycin 15.0 Blood Type Antibody Screen Crossmatch 03/07/23 03/07/23 03/07/23 06:10 06:10 11:57 WBC 7.8 RBC 3.20 L Hgb 8.7 L Hct 26.9 L MCV 84.1 MCH 27.2 MCHC 32.3 RDW 16.2 H Plt Count 336 MPV 9.9 Immature Gran % (Auto) Neut % (Auto) Lymph % (Auto) [place] % (Auto) Eos % (Auto) Baso % (Auto) Lymph # (Auto) [place] # (Auto) Eos # (Auto) Baso # (Auto) Abs Immat Gran (auto) Absolute Neuts (auto) Absolute Nucleated RBC 0.020 H Nucleated RBC % (auto) 0.3 H PT INR D-Dimer High Sensitivty O2 Saturation ABG pH at Pt Temp ABG pCO2 at Pt Temp ABG pO2 at Pt Temp ABG HCO3 ABG Base Excess (Actual) VBG pH VBG pCO2 VBG pO2 VBG HCO3 VBG O2 Saturation VBG Base Excess Sodium 142 Potassium 3.6 Chloride 113 H Carbon Dioxide 22 Anion Gap 11 L BUN 7 L Creatinine 0.71 Estim Creat Clear Calc 113.4 Estimated GFR > 60 POC Glucose 206 H Random Glucose 233 H Fasting Glucose Lactic Acid Lactic Acid F/U @ 2Hr Lactic Acid F/U @ 4Hr Calcium 8.4 D Phosphorus Magnesium Total Bilirubin Direct Bilirubin AST ALT Alkaline Phosphatase Lactate Dehydrogenase Troponin I High Sens B-Natriuretic Peptide Total Protein Albumin Beta-Hydroxybutyrate TSH Urine Color Urine Appearance Urine pH Ur Specific [place] Urine Protein Urine Glucose (UA) Urine Ketones Urine Blood Urine Nitrite Ur Leukocyte Esterase Urine RBC Urine WBC Ur Squamous Epith Cells Urine Bacteria Hyaline Casts Urine Yeast Vancomycin Trough Random Vancomycin Blood Type Antibody Screen Crossmatch 03/07/23 03/07/23 03/08/23 18:29 19:29 00:41 WBC RBC Hgb Hct MCV MCH MCHC RDW Plt Count MPV Immature Gran % (Auto) Neut % (Auto) Lymph % (Auto) [place] % (Auto) Eos % (Auto) Baso % (Auto) Lymph # (Auto) [place] # (Auto) Eos # (Auto) Baso # (Auto) Abs Immat Gran (auto) Absolute Neuts (auto) Absolute Nucleated RBC Nucleated RBC % (auto) PT INR D-Dimer High Sensitivty O2 Saturation ABG pH at Pt Temp ABG pCO2 at Pt Temp ABG pO2 at Pt Temp ABG HCO3 ABG Base Excess (Actual) VBG pH VBG pCO2 VBG pO2 VBG HCO3 VBG O2 Saturation VBG Base Excess Sodium Potassium Chloride Carbon Dioxide Anion Gap BUN Creatinine Estim Creat Clear Calc Estimated GFR POC Glucose 225 H 214 H 228 H Random Glucose Fasting Glucose Lactic Acid Lactic Acid F/U @ 2Hr Lactic Acid F/U @ 4Hr Calcium Phosphorus Magnesium Total Bilirubin Direct Bilirubin AST ALT Alkaline Phosphatase Lactate Dehydrogenase Troponin I High Sens B-Natriuretic Peptide Total Protein Albumin Beta-Hydroxybutyrate TSH Urine Color Urine Appearance Urine pH Ur Specific [place] Urine Protein Urine Glucose (UA) Urine Ketones Urine Blood Urine Nitrite Ur Leukocyte Esterase Urine RBC Urine WBC Ur Squamous Epith Cells Urine Bacteria Hyaline Casts Urine Yeast Vancomycin Trough Random Vancomycin Blood Type Antibody Screen Crossmatch 03/08/23 03/08/23 03/08/23 06:08 06:27 11:21 WBC RBC Hgb Hct MCV MCH MCHC RDW Plt Count MPV Immature Gran % (Auto) Neut % (Auto) Lymph % (Auto) [place] % (Auto) Eos % (Auto) Baso % (Auto) Lymph # (Auto) [place] # (Auto) Eos # (Auto) Baso # (Auto) Abs Immat Gran (auto) Absolute Neuts (auto) Absolute Nucleated RBC Nucleated RBC % (auto) PT INR D-Dimer High Sensitivty O2 Saturation ABG pH at Pt Temp ABG pCO2 at Pt Temp ABG pO2 at Pt Temp ABG HCO3 ABG Base Excess (Actual) VBG pH VBG pCO2 VBG pO2 VBG HCO3 VBG O2 Saturation VBG Base Excess Sodium Potassium Chloride Carbon Dioxide Anion Gap BUN Creatinine 0.72 Estim Creat Clear Calc 111.8 Estimated GFR > 60 POC Glucose 243 H 217 H Random Glucose Fasting Glucose Lactic Acid Lactic Acid F/U @ 2Hr Lactic Acid F/U @ 4Hr Calcium Phosphorus Magnesium Total Bilirubin Direct Bilirubin AST ALT Alkaline Phosphatase Lactate Dehydrogenase Troponin I High Sens B-Natriuretic Peptide Total Protein Albumin Beta-Hydroxybutyrate TSH Urine Color Urine Appearance Urine pH Ur Specific [place] Urine Protein Urine Glucose (UA) Urine Ketones Urine Blood Urine Nitrite Ur Leukocyte Esterase Urine RBC Urine WBC Ur Squamous Epith Cells Urine Bacteria Hyaline Casts Urine Yeast Vancomycin Trough Random Vancomycin Blood Type Antibody Screen Crossmatch 03/08/23 03/08/23 03/08/23 17:36 21:12 23:28 WBC RBC Hgb Hct MCV MCH MCHC RDW Plt Count MPV Immature Gran % (Auto) Neut % (Auto) Lymph % (Auto) [place] % (Auto) Eos % (Auto) Baso % (Auto) Lymph # (Auto) [place] # (Auto) Eos # (Auto) Baso # (Auto) Abs Immat Gran (auto) Absolute Neuts (auto) Absolute Nucleated RBC Nucleated RBC % (auto) PT INR D-Dimer High Sensitivty O2 Saturation ABG pH at Pt Temp ABG pCO2 at Pt Temp ABG pO2 at Pt Temp ABG HCO3 ABG Base Excess (Actual) VBG pH VBG pCO2 VBG pO2 VBG HCO3 VBG O2 Saturation VBG Base Excess Sodium Potassium Chloride Carbon Dioxide Anion Gap BUN Creatinine Estim Creat Clear Calc Estimated GFR POC Glucose 177 H 176 H Random Glucose Fasting Glucose Lactic Acid Lactic Acid F/U @ 2Hr Lactic Acid F/U @ 4Hr Calcium Phosphorus Magnesium Total Bilirubin Direct Bilirubin AST ALT Alkaline Phosphatase Lactate Dehydrogenase Troponin I High Sens B-Natriuretic Peptide Total Protein Albumin Beta-Hydroxybutyrate TSH Urine Color Urine Appearance Urine pH Ur Specific [place] Urine Protein Urine Glucose (UA) Urine Ketones Urine Blood Urine Nitrite Ur Leukocyte Esterase Urine RBC Urine WBC Ur Squamous Epith Cells Urine Bacteria Hyaline Casts Urine Yeast Vancomycin Trough 17.8 Random Vancomycin Blood Type Antibody Screen Crossmatch 03/09/23 03/09/23 03/09/23 06:23 06:52 11:22 WBC RBC Hgb Hct MCV MCH MCHC RDW Plt Count MPV Immature Gran % (Auto) Neut % (Auto) Lymph % (Auto) [place] % (Auto) Eos % (Auto) Baso % (Auto) Lymph # (Auto) [place] # (Auto) Eos # (Auto) Baso # (Auto) Abs Immat Gran (auto) Absolute Neuts (auto) Absolute Nucleated RBC Nucleated RBC % (auto) PT INR D-Dimer High Sensitivty O2 Saturation ABG pH at Pt Temp ABG pCO2 at Pt Temp ABG pO2 at Pt Temp ABG HCO3 ABG Base Excess (Actual) VBG pH VBG pCO2 VBG pO2 VBG HCO3 VBG O2 Saturation VBG Base Excess Sodium Potassium Chloride Carbon Dioxide Anion Gap BUN Creatinine 0.87 Estim Creat Clear Calc 92.5 Estimated GFR > 60 POC Glucose 223 H 198 H Random Glucose Fasting Glucose Lactic Acid Lactic Acid F/U @ 2Hr Lactic Acid F/U @ 4Hr Calcium Phosphorus Magnesium Total Bilirubin Direct Bilirubin AST ALT Alkaline Phosphatase Lactate Dehydrogenase Troponin I High Sens B-Natriuretic Peptide Total Protein Albumin Beta-Hydroxybutyrate TSH Urine Color Urine Appearance Urine pH Ur Specific [place] Urine Protein Urine Glucose (UA) Urine Ketones Urine Blood Urine Nitrite Ur Leukocyte Esterase Urine RBC Urine WBC Ur Squamous Epith Cells Urine Bacteria Hyaline Casts Urine Yeast Vancomycin Trough Random Vancomycin Blood Type Antibody Screen Crossmatch 03/09/23 03/09/23 03/10/23 15:37 18:13 00:23 WBC RBC Hgb Hct MCV MCH MCHC RDW Plt Count MPV Immature Gran % (Auto) Neut % (Auto) Lymph % (Auto) [place] % (Auto) Eos % (Auto) Baso % (Auto) Lymph # (Auto) [place] # (Auto) Eos # (Auto) Baso # (Auto) Abs Immat Gran (auto) Absolute Neuts (auto) Absolute Nucleated RBC Nucleated RBC % (auto) PT INR D-Dimer High Sensitivty O2 Saturation ABG pH at Pt Temp ABG pCO2 at Pt Temp ABG pO2 at Pt Temp ABG HCO3 ABG Base Excess (Actual) VBG pH VBG pCO2 VBG pO2 VBG HCO3 VBG O2 Saturation VBG Base Excess Sodium Potassium Chloride Carbon Dioxide Anion Gap BUN Creatinine Estim Creat Clear Calc Estimated GFR POC Glucose 220 H 227 H 201 H Random Glucose Fasting Glucose Lactic Acid Lactic Acid F/U @ 2Hr Lactic Acid F/U @ 4Hr Calcium Phosphorus Magnesium Total Bilirubin Direct Bilirubin AST ALT Alkaline Phosphatase Lactate Dehydrogenase Troponin I High Sens B-Natriuretic Peptide Total Protein Albumin Beta-Hydroxybutyrate TSH Urine Color Urine Appearance Urine pH Ur Specific [place] Urine Protein Urine Glucose (UA) Urine Ketones Urine Blood Urine Nitrite Ur Leukocyte Esterase Urine RBC Urine WBC Ur Squamous Epith Cells Urine Bacteria Hyaline Casts Urine Yeast Vancomycin Trough Random Vancomycin Blood Type Antibody Screen Crossmatch 03/10/23 03/10/23 03/10/23 05:41 06:12 06:12 WBC 8.6 RBC 3.74 L Hgb 10.2 L Hct 32.6 L D MCV 87.2 MCH 27.3 MCHC 31.3 RDW 16.8 H Plt Count 336 MPV 9.9 Immature Gran % (Auto) Neut % (Auto) Lymph % (Auto) [place] % (Auto) Eos % (Auto) Baso % (Auto) Lymph # (Auto) [place] # (Auto) Eos # (Auto) Baso # (Auto) Abs Immat Gran (auto) Absolute Neuts (auto) Absolute Nucleated RBC 0.000 Nucleated RBC % (auto) 0.0 PT 13.7 H D INR 1.1 D-Dimer High Sensitivty O2 Saturation ABG pH at Pt Temp ABG pCO2 at Pt Temp ABG pO2 at Pt Temp ABG HCO3 ABG Base Excess (Actual) VBG pH VBG pCO2 VBG pO2 VBG HCO3 VBG O2 Saturation VBG Base Excess Sodium Potassium Chloride Carbon Dioxide Anion Gap BUN Creatinine Estim Creat Clear Calc Estimated GFR POC Glucose 227 H Random Glucose Fasting Glucose Lactic Acid Lactic Acid F/U @ 2Hr Lactic Acid F/U @ 4Hr Calcium Phosphorus Magnesium Total Bilirubin Direct Bilirubin AST ALT Alkaline Phosphatase Lactate Dehydrogenase Troponin I High Sens B-Natriuretic Peptide Total Protein Albumin Beta-Hydroxybutyrate TSH Urine Color Urine Appearance Urine pH Ur Specific [place] Urine Protein Urine Glucose (UA) Urine Ketones Urine Blood Urine Nitrite Ur Leukocyte Esterase Urine RBC Urine WBC Ur Squamous Epith Cells Urine Bacteria Hyaline Casts Urine Yeast Vancomycin Trough Random Vancomycin Blood Type Antibody Screen Crossmatch 03/10/23 03/10/23 03/10/23 06:12 09:41 11:48 WBC RBC Hgb Hct MCV MCH MCHC RDW Plt Count MPV Immature Gran % (Auto) Neut % (Auto) Lymph % (Auto) [place] % (Auto) Eos % (Auto) Baso % (Auto) Lymph # (Auto) [place] # (Auto) Eos # (Auto) Baso # (Auto) Abs Immat Gran (auto) Absolute Neuts (auto) 4.1 Absolute Nucleated RBC Nucleated RBC % (auto) PT INR D-Dimer High Sensitivty O2 Saturation ABG pH at Pt Temp ABG pCO2 at Pt Temp ABG pO2 at Pt Temp ABG HCO3 ABG Base Excess (Actual) VBG pH VBG pCO2 VBG pO2 VBG HCO3 VBG O2 Saturation VBG Base Excess Sodium 135 Potassium 4.1 Chloride 104 Carbon Dioxide 22 Anion Gap 13 BUN 8 L Creatinine 0.85 Estim Creat Clear Calc 94.7 Estimated GFR > 60 POC Glucose 208 H Random Glucose 240 H Fasting Glucose Lactic Acid Lactic Acid F/U @ 2Hr Lactic Acid F/U @ 4Hr Calcium 9.7 D Phosphorus Magnesium Total Bilirubin Direct Bilirubin AST ALT Alkaline Phosphatase Lactate Dehydrogenase Troponin I High Sens B-Natriuretic Peptide Total Protein Albumin Beta-Hydroxybutyrate TSH Urine Color Urine Appearance Urine pH Ur Specific [place] Urine Protein Urine Glucose (UA) Urine Ketones Urine Blood Urine Nitrite Ur Leukocyte Esterase Urine RBC Urine WBC Ur Squamous Epith Cells Urine Bacteria Hyaline Casts Urine Yeast Vancomycin Trough Random Vancomycin Blood Type Antibody Screen Crossmatch 03/10/23 03/11/23 03/11/23 17:56 00:13 06:06 WBC RBC Hgb Hct MCV MCH MCHC RDW Plt Count MPV Immature Gran % (Auto) Neut % (Auto) Lymph % (Auto) [place] % (Auto) Eos % (Auto) Baso % (Auto) Lymph # (Auto) [place] # (Auto) Eos # (Auto) Baso # (Auto) Abs Immat Gran (auto) Absolute Neuts (auto) Absolute Nucleated RBC Nucleated RBC % (auto) PT INR D-Dimer High Sensitivty O2 Saturation ABG pH at Pt Temp ABG pCO2 at Pt Temp ABG pO2 at Pt Temp ABG HCO3 ABG Base Excess (Actual) VBG pH VBG pCO2 VBG pO2 VBG HCO3 VBG O2 Saturation VBG Base Excess Sodium Potassium Chloride Carbon Dioxide Anion Gap BUN Creatinine Estim Creat Clear Calc Estimated GFR POC Glucose 201 H 206 H 212 H Random Glucose Fasting Glucose Lactic Acid Lactic Acid F/U @ 2Hr Lactic Acid F/U @ 4Hr Calcium Phosphorus Magnesium Total Bilirubin Direct Bilirubin AST ALT Alkaline Phosphatase Lactate Dehydrogenase Troponin I High Sens B-Natriuretic Peptide Total Protein Albumin Beta-Hydroxybutyrate TSH Urine Color Urine Appearance Urine pH Ur Specific [place] Urine Protein Urine Glucose (UA) Urine Ketones Urine Blood Urine Nitrite Ur Leukocyte Esterase Urine RBC Urine WBC Ur Squamous Epith Cells Urine Bacteria Hyaline Casts Urine Yeast Vancomycin Trough Random Vancomycin Blood Type Antibody Screen Crossmatch 03/11/23 07:15 WBC RBC Hgb Hct MCV MCH MCHC RDW Plt Count MPV Immature Gran % (Auto) Neut % (Auto) Lymph % (Auto) [place] % (Auto) Eos % (Auto) Baso % (Auto) Lymph # (Auto) [place] # (Auto) Eos # (Auto) Baso # (Auto) Abs Immat Gran (auto) Absolute Neuts (auto) Absolute Nucleated RBC Nucleated RBC % (auto) PT INR D-Dimer High Sensitivty O2 Saturation ABG pH at Pt Temp ABG pCO2 at Pt Temp ABG pO2 at Pt Temp ABG HCO3 ABG Base Excess (Actual) VBG pH VBG pCO2 VBG pO2 VBG HCO3 VBG O2 Saturation VBG Base Excess Sodium Potassium Chloride Carbon Dioxide Anion Gap BUN Creatinine Estim Creat Clear Calc Estimated GFR POC Glucose 204 H Random Glucose Fasting Glucose Lactic Acid Lactic Acid F/U @ 2Hr Lactic Acid F/U @ 4Hr Calcium Phosphorus Magnesium Total Bilirubin Direct Bilirubin AST ALT Alkaline Phosphatase Lactate Dehydrogenase Troponin I High Sens B-Natriuretic Peptide Total Protein Albumin Beta-Hydroxybutyrate TSH Urine Color Urine Appearance Urine pH Ur Specific [place] Urine Protein Urine Glucose (UA) Urine Ketones Urine Blood Urine Nitrite Ur Leukocyte Esterase Urine RBC Urine WBC Ur Squamous Epith Cells Urine Bacteria Hyaline Casts Urine Yeast Vancomycin Trough Random Vancomycin Blood Type Antibody Screen Crossmatch Airway Mallampati Class: II TM Dist: >3cm Neck ROM: Full Heart: rrr Lungs: cta Assessment and Plan Assessment Anesthesia Assessment: Anesthesia Plan Discussed Final Anesthetic Review Family History of Problems with Anesthesia: No History of Problems with Anesthesia: No NPO: Yes ASA Class: III Final Preanesthetic Review: No Changes in Pt Med Stat, Meds/Allgs Chart Reviewed and Consent Obtained/Reviewed Patient Risk: Intermediate Procedure Risk: Intermediate Anesthetic Plan Anesthetic Plan: MAC: Disposition: Standard PACU
--- NOTE | 2023-03-11 11:03 | MHC.CLN ---
F/U PATIENT CURRENTLY NPO FOR G TUBE PLACEMENT. RECOMMMEND RESUME GLUCERNA TUBE FEED WHEN ABLE. RD TO FOLLOW FOR TUBE FEED RE START.
--- NOTE | 2023-03-11 11:08 | W.PM.OPN ---
Operative Note Operative Note Date of Service: 03/11/23 Narrative: Preoperative diagnosis: [] Chronic aspiration , could difficulty swallowing, status post recent exploratory laparotomy Postop diagnosis: [] Same Procedure [] open G-tube placement Surgeon: [] Rodrick Supervisor Travel Trailer: [] Sam GARRETT Type of Anesthesia: [] MAC Indication for surgery: [] Difficulty swallowing, chronic aspiration, malnutrition Findings: [] Patient is brought to the operating room, placed on the operative table in supine position, after adequate level of MAC anesthesia was induced, the patient's upper abdomen was prepped and draped in usual sterile fashion. Using a small upper midline incision which was infiltrated with 0.5% Marcaine/1% lidocaine,, this carried down through skin, subcutaneous tissue, and linea alba. Posterior fascia and perineum were opened and extended along the length of the incision. Stomach was identified and brought onto the field. Two pursestring sutures of 2-0 silk were placed on the anterior gastric wall. Through a separate left upper quadrant stab wound incision, 24 Palestinian feeding tube was entered into the abdominal cavity. A gastrotomy was made in the center of the 2 pursestring suture using Bovie, and the feeding tube was advanced into the distal stomach. Approximately 2 cc was in insufflated into the balloon. Inner followed by outer pursestring sutures were then tied. Stomach was then pexied to the peritoneum using interrupted 2-0 silk seromuscular to peritoneum sutures. G-tube present secured to the skin using 2-0 nylon suture. Wound was irrigated, secured hemostasis. The wound Was closed in the following manner; mass closed using 1. Maxon suture used to close perineum and fascia. Interrupted inverted deep dermal 3-0 Vicryl sutures followed by running subcuticular 4-0 Vicryl suture were placed. Steri-Strips and sterile dressings were applied. G-tube was flushed easily and gastric contents retrieved easily as well. Sponge, needle, instrument counts reported correct. Patient tolerated the procedure well and emerged anesthesia stable condition. EBL minimal
[2023-03-11 11:57] LABS: Glucose, Whole Blood 216 mg/dL (60-115)
--- NOTE | 2023-03-11 13:56 | MHC.CM.PN ---
EMR reviewed and per MD rounds, pt is not medically cleared for D/C today, as he had his g-tube placed today. CM will continue to follow.
--- NOTE | 2023-03-11 15:54 | HO.PM.IMPN ---
Subjective Subjective Date of Service: 03/11/23 Interval History: Doing well post open G-tube placement. Pain control adequate Review of Systems Denies chest pain Denies shortness of breath Denies nausea vomiting diarrhea Denies abdomen pain Physical Exam Vital Signs: Vital Signs: Last Vital Signs Temp 97.7 F 03/11/23 15:49 Pulse 87 03/11/23 15:49 Resp 18 03/11/23 15:49 BP 125/76 03/11/23 15:49 Pulse Ox 96 03/11/23 15:49 O2 Del Method Room Air 03/11/23 15:49 O2 Flow Rate 2 03/07/23 08:00 Oxygen Flow Rate 2 02/23/23 05:00 BMI result Body Mass Index 24.7 Const: Other: Awake alert lying comfortable Resp: Other: Clear to auscultation bilaterally no rales rhonchi or wheezes Cardio: Other: No S4; positive S1-S2; no S3 murmurs rubs or gallops GI: Other: Soft nontender. G-tube site dressing clean dry and intact Extrem: Other: No edema bilaterally Objective Data Active Medications Acetaminophen (Acetaminophen 325 Mg Tablet) 650 mg PO Q8H PRN PRN Reason: fever Last Admin: 03/02/23 05:42 Dose: 650 mg Documented By: SARAH Amiodarone HCl (Amiodarone Hcl 200 Mg Tablet) 400 mg G-TUBE BID [facility] Last Admin: 03/11/23 10:16 Dose: Not Given Documented By: WILDER Non-Admin Reason: Off Unit: Surgery Benzonatate (Benzonatate 100 Mg Capsule) 200 mg PO TID PRN PRN Reason: Cough Clozapine (Clozapine 25 Mg Tablet) 50 mg PO BEDTIME [facility] Last Admin: 03/10/23 20:13 Dose: Not Given Documented By: JOSEPH Non-Admin Reason: NPO Dextrose (Dextrose 50 % 25 Gm/50 Ml Syringe) 25 gm IVPUSH Q15M PRN; Protocol PRN Reason: per Hypoglycemia Standing Ord. Last Admin: 02/21/23 07:53 Dose: 25 gm Documented By: PORTIA Comments: bg 67 Glucose (Glucose Gel 15 Gm Gel..Gram.) 15 gm PO Q15M PRN; Protocol PRN Reason: per Hypoglycemia Standing Ord. Lactated Ringer's (Lr) 1,000 mls @ 80 mls/hr IVCONT .[id number] [facility] Last Admin: 03/11/23 02:13 Dose: 80 mls/hr Documented By: JOSEPH Insulin Human Lispro (Insulin Lispro 100 Unit/Ml 3 Ml Vial) 0 unit SUBCUT Q6H [facility]; Protocol Last Admin: 03/11/23 12:49 Dose: Not Given Documented By: WILDER Non-Admin Reason: No Insulin Coverage Levothyroxine Sodium (Levothyroxine Sodium 100 Mcg/5 Ml Vial) 37.5 mcg IVPUSH DAILY@0600 [facility] Last Admin: 03/11/23 04:46 Dose: Not Given Documented By: JOSEPH Non-Admin Reason: NPO Melatonin (Melatonin 3 Mg Tablet) 6 mg PO BEDTIME PRN PRN Reason: Insomnia Morphine Sulfate (Morphine Sulfate 4 Mg/Ml Cartridge) 3 mg IVPUSH Q4H PRN; Protocol PRN Reason: Pain, Severe (Pain Scale 7-10) Olanzapine (Olanzapine 10 Mg Vial) 5 mg IM DAILY PRN PRN Reason: agitation Last Admin: 03/11/23 02:14 Dose: 5 mg Documented By: JOSEPH Polyethylene Glycol (Polyethylene Glycol 3350 17 Gm Powd.Pack) 17 gm G-TUBE DAILY [facility] Last Admin: 03/11/23 10:16 Dose: Not Given Documented By: WILDER Non-Admin Reason: Off Unit: Surgery Sodium Chloride (0.9 % Sodium Chloride Flush 3 Ml Syringe) 3 ml IVFLUSH QSHIFT [facility] Last Admin: 03/11/23 10:17 Dose: Not Given Documented By: WILDER Non-Admin Reason: Off Unit: Surgery Labs 03/10/23 06:12 03/10/23 06:12 Labs: Laboratory Results - last 24 hr 03/10/23 03/11/23 03/11/23 17:56 00:13 06:06 POC Glucose 201 H 206 H 212 H 03/11/23 03/11/23 07:15 11:39 POC Glucose 204 H 216 H Assessment and Plan (1) Dysphagia: Status: Acute (2) Paroxysmal atrial fibrillation: Status: Acute (3) Type 2 diabetes mellitus: Status: Acute Plan 62M PMH CAD s/p CABG, paroxysmal afib, COPD, DM2, paranoid schizophrenia, hypothyroid, from [facility] presented with abdominal pain, distension, hypoxia. 1.Toxic metabolic encephalopathy -resolved -continue current medical regimen; will adjust at [facility] 2.Dysphagia -doing well post open G-tube insertion this a.m. -as per surgery will start feedings in a.m. -if tolerated return to [facility] tomorrow afternoon 3.Paroxysmal afib -Metoprolol/amiodarone PO 400 mg bid x 2 weeks(end 03/18)...200mg daily(start 03/19) -if okay with surgery restart Eliquis in a.m. 4.Sepsis 2/2 Pneumonia and Candidal UTI(resolved) 5. Dm II -acceptable control on basal insulin/lispro correctional scale -adjust as indicated -add back orals after returns to [facility] 6.Paranoid schizophrenia -clozaril changes noted -adjust as indicated a [facility] Full code Requires ongoing hospitalization to monitor response to open G-tube. Time Spent With Patient Time: Total time managing care of this patient today ____ minutes. Quality Stroke Does the patient have a stroke diagnosis?: No VTE Prior VTE?: No VTE Risk Level:: Medical - moderate - high VTE Device Contraindication: Treatment Not Indicated VTE Drug Contraindication: N/A - Med Ordered
[2023-03-11] MEDS: 0.9 % Sodium Chloride Flush 3 ML SYRINGE IVFLUSH (18:01)
[2023-03-11 20:14] LABS: Glucose, Whole Blood 267 mg/dL (60-115)
[2023-03-11 23:21] LABS: Glucose, Whole Blood 251 mg/dL (60-115)
[2023-03-12] VITALS (7 sets, daily range): BP systolic 118–129; BP diastolic 61–73; PULSE 71–92; RESP 16–20; TEMP 36–37.1; O2SAT 97–99
[2023-03-12] MEDS: 0.9 % Sodium Chloride Flush 3 ML SYRINGE IVFLUSH ×2 (01:30→23:02)
[2023-03-12] MEDS: Insulin Lispro 100 UNIT/ML 3 ML VIAL SUBCUT ×4 (01:30→17:53)
[2023-03-12 04:53] LABS: Glucose, Whole Blood 228 mg/dL (60-115)
[2023-03-12] MEDS: Lactated Ringers 1,000 ML 80 ML IVCONT (05:25)
[2023-03-12 06:05] LABS: Glucose, Whole Blood 196 mg/dL (60-115)
[2023-03-12] MEDS: Levothyroxine Sodium 100 MCG/5 ML VIAL 37.5 MCG IVPUSH (06:55)
[2023-03-12] MEDS: Amiodarone HCL 200 MG TABLET 400 MG G-TUBE ×2 (08:16→23:01)
[2023-03-12] MEDS: polyethylene glycoL 3350 17 GM POWD.PACK G-TUBE (08:17)
--- NOTE | 2023-03-12 08:51 | P.PNGS_ITS ---
Subjective Subjective Date of Service: 03/12/23 Interval history: No events overnight. Lying comfortably in bed. Physical Exam Vital Signs: Vital Signs: Last Vital Signs Temp 98.7 F 03/12/23 07:35 Pulse 79 03/12/23 07:35 Resp 19 03/12/23 07:35 BP 126/73 03/12/23 07:35 Pulse Ox 97 03/12/23 07:35 O2 Del Method Room Air 03/12/23 07:35 O2 Flow Rate 2 03/07/23 08:00 Oxygen Flow Rate 2 02/23/23 05:00 BMI result Body Mass Index 24.7 Const: General: comfortable, no acute distress and alert Resp: Effort & Inspection: normal respiratory effort GI: Other: G tube in place, no drainage noted, abd soft and nontender dressing to incision clean and intact some scant sanguineous drainage from lower midline incision with hematoma on right ostomy pink, soft stool in appliance Skin: General skin exam: no rashes or lesions noted Objective Data Active Medications Acetaminophen (Acetaminophen 325 Mg Tablet) 650 mg PO Q8H PRN PRN Reason: fever Last Admin: 03/02/23 05:42 Dose: 650 mg Documented By: SARAH Amiodarone HCl (Amiodarone Hcl 200 Mg Tablet) 400 mg G-TUBE BID [facility] Last Admin: 03/12/23 08:16 Dose: 400 mg Documented By: JORGE Benzonatate (Benzonatate 100 Mg Capsule) 200 mg PO TID PRN PRN Reason: Cough Clozapine (Clozapine 25 Mg Tablet) 50 mg PO BEDTIME [facility] Last Admin: 03/11/23 23:28 Dose: Not Given Documented By: IRINA Non-Admin Reason: NPO Dextrose (Dextrose 50 % 25 Gm/50 Ml Syringe) 25 gm IVPUSH Q15M PRN; Protocol PRN Reason: per Hypoglycemia Standing Ord. Last Admin: 02/21/23 07:53 Dose: 25 gm Documented By: PORTIA Comments: bg 67 Glucose (Glucose Gel 15 Gm Gel..Gram.) 15 gm PO Q15M PRN; Protocol PRN Reason: per Hypoglycemia Standing Ord. Lactated Ringer's (Lr) 1,000 mls @ 80 mls/hr IVCONT .[id number] [facility] Last Admin: 03/11/23 17:59 Dose: 80 mls/hr Documented By: WILDER Insulin Human Lispro (Insulin Lispro 100 Unit/Ml 3 Ml Vial) 0 unit SUBCUT Q6H [facility]; Protocol Last Admin: 03/12/23 06:53 Dose: 2 unit Documented By: IRINA Levothyroxine Sodium (Levothyroxine Sodium 100 Mcg/5 Ml Vial) 37.5 mcg IVPUSH DAILY@0600 [facility] Last Admin: 03/12/23 06:55 Dose: 37.5 mcg Documented By: IRINA Melatonin (Melatonin 3 Mg Tablet) 6 mg PO BEDTIME PRN PRN Reason: Insomnia Morphine Sulfate (Morphine Sulfate 4 Mg/Ml Cartridge) 3 mg IVPUSH Q4H PRN; Protocol PRN Reason: Pain, Severe (Pain Scale 7-10) Olanzapine (Olanzapine 10 Mg Vial) 5 mg IM DAILY PRN PRN Reason: agitation Last Admin: 03/11/23 02:14 Dose: 5 mg Documented By: JOSEPH Polyethylene Glycol (Polyethylene Glycol 3350 17 Gm Powd.Pack) 17 gm G-TUBE DAILY [facility] Last Admin: 03/12/23 08:17 Dose: 17 gm Documented By: JORGE Sodium Chloride (0.9 % Sodium Chloride Flush 3 Ml Syringe) 3 ml IVFLUSH QSHIFT [facility] Last Admin: 03/12/23 08:17 Dose: Not Given Documented By: JORGE Non-Admin Reason: IV Running Labs 03/10/23 06:12 03/10/23 06:12 Labs: Laboratory Results - last 24 hr 03/11/23 03/11/23 03/11/23 11:39 20:00 23:16 POC Glucose 216 H 267 H 251 H 03/12/23 03/12/23 01:18 06:01 POC Glucose 228 H 196 H Procedures Date of Service Date of Service: 03/12/23 Progress Note: A&P Assessment and plan (1) Dysphagia: Status: Acute (2) Volvulus of sigmoid colon: Status: Acute (3) S/P colectomy: Status: Acute Plan POD #1 s/p open G tube placement for dysphagia, chronic aspiration, malnutrition. Tolerated procedure well, no acute surgical issues. Abd benign with G tube in place, incision dressing c/d/i. Ok to begin tube feeds, check residual. Keep abd binder in place as patient has tendency to pull tubes/ostomy appliance. Time Spent With Patient Time: Total time managing care of this patient today ____ minutes. Quality Stroke Does the patient have a stroke diagnosis?: No VTE Prior VTE?: No VTE Risk Level:: Medical - moderate - high VTE Device Contraindication: Treatment Not Indicated VTE Drug Contraindication: N/A - Med Ordered
--- NOTE | 2023-03-12 10:03 | HO.POSTANES ---
Post Anesthesia Evaluation Post Anesthesia Evaluation Date of Service: 03/12/23 Vital Signs: Vital Signs Temp Pulse Resp BP Pulse Ox O2 Del Method 03/12/23 07:35 98.7 F 79 19 126/73 97 Room Air 03/12/23 00:08 97.8 F 84 16 118/66 99 Room Air 03/12/23 04:00 98.7 F 79 16 122/71 98 Room Air Anesthesia: Monitored Mental Status: Awake Pain Control: Satisfactory Nausea/Vomiting: None Hydration: Adequate Anesthesia-Related Issues: No Anes. Related Issues
--- NOTE | 2023-03-12 11:10 | MHC.CLN ---
F/U PEG PLACED 03/11/23. PER SURGERY NOTE, OK TO START TUBE FEEDING. RECOMMEND TUBE FEED GLUCERNA AT MAX GOAL RATE 95ML/HR WITH 240ML FWF Q 6 HRS. PROVIDES 2280KCALS (28KCALS/KG), 95G PROTEIN (1.2G/KG), 2905ML TOTAL FROM FORMULA AND FLUSHES (36ML/KG). MONITOR TOLERANCE, RESIDUALS AND LYTES.
[2023-03-12 11:53] LABS: Glucose, Whole Blood 161 mg/dL (60-115)
--- NOTE | 2023-03-12 12:34 | MHC.CM.PN ---
EMR reviewed and per MD, pt is not medically cleared for D/C and will be monitored for a day while he received his tube feedings, pt will need a kangaroo pump for D/C back to [facility]. CM will continue to follow.
--- NOTE | 2023-03-12 13:18 | P.PNIM_ITS ---
Subjective Subjective Date of Service: 03/12/23 Interval History: Tolerant of G-tube feeding thus far; appears comfortable Review of Systems Denies chest pain Denies shortness of breath Denies nausea vomiting diarrhea Denies abdomen pain Physical Exam Vital Signs: Vital Signs: Last Vital Signs Temp 98.1 F 03/12/23 11:36 Pulse 71 03/12/23 11:36 Resp 19 03/12/23 11:36 BP 123/71 03/12/23 11:36 Pulse Ox 99 03/12/23 11:36 O2 Del Method Room Air 03/12/23 11:36 O2 Flow Rate 2 03/07/23 08:00 Oxygen Flow Rate 2 02/23/23 05:00 BMI result Body Mass Index 24.7 Const: Other: Awake alert lying comfortable Resp: Other: Clear to auscultation bilaterally no rales rhonchi or wheezes Cardio: Other: No S4; positive S1-S2; no S3 murmurs rubs or gallops GI: Other: Soft nontender. G-tube site dressing clean dry and intact Extrem: Other: No edema bilaterally Objective Data Active Medications Acetaminophen (Acetaminophen 325 Mg Tablet) 650 mg PO Q8H PRN PRN Reason: fever Last Admin: 03/02/23 05:42 Dose: 650 mg Documented By: SARAH Amiodarone HCl (Amiodarone Hcl 200 Mg Tablet) 400 mg G-TUBE BID [facility] Last Admin: 03/12/23 08:16 Dose: 400 mg Documented By: SUDHIRNLHELEN Benzonatate (Benzonatate 100 Mg Capsule) 200 mg PO TID PRN PRN Reason: Cough Clozapine (Clozapine 25 Mg Tablet) 50 mg PO BEDTIME [facility] Last Admin: 03/11/23 23:28 Dose: Not Given Documented By: IRINA Non-Admin Reason: NPO Dextrose (Dextrose 50 % 25 Gm/50 Ml Syringe) 25 gm IVPUSH Q15M PRN; Protocol PRN Reason: per Hypoglycemia Standing Ord. Last Admin: 02/21/23 07:53 Dose: 25 gm Documented By: PORTIA Comments: bg 67 Glucose (Glucose Gel 15 Gm Gel..Gram.) 15 gm PO Q15M PRN; Protocol PRN Reason: per Hypoglycemia Standing Ord. Insulin Human Lispro (Insulin Lispro 100 Unit/Ml 3 Ml Vial) 0 unit SUBCUT Q6H [facility]; Protocol Last Admin: 03/12/23 12:07 Dose: 2 unit Documented By: JORGE Levothyroxine Sodium (Levothyroxine Sodium 100 Mcg/5 Ml Vial) 37.5 mcg IVPUSH DAILY@0600 [facility] Last Admin: 03/12/23 06:55 Dose: 37.5 mcg Documented By: IRINA Melatonin (Melatonin 3 Mg Tablet) 6 mg PO BEDTIME PRN PRN Reason: Insomnia Morphine Sulfate (Morphine Sulfate 4 Mg/Ml Cartridge) 3 mg IVPUSH Q4H PRN; Protocol PRN Reason: Pain, Severe (Pain Scale 7-10) Olanzapine (Olanzapine 10 Mg Vial) 5 mg IM DAILY PRN PRN Reason: agitation Last Admin: 03/11/23 02:14 Dose: 5 mg Documented By: JOSEPH Polyethylene Glycol (Polyethylene Glycol 3350 17 Gm Powd.Pack) 17 gm G-TUBE DAILY [facility] Last Admin: 03/12/23 08:17 Dose: 17 gm Documented By: JORGE Sodium Chloride (0.9 % Sodium Chloride Flush 3 Ml Syringe) 3 ml IVFLUSH QSHIFT [facility] Last Admin: 03/12/23 08:17 Dose: Not Given Documented By: JORGE Non-Admin Reason: IV Running Labs 03/10/23 06:12 03/10/23 06:12 Labs: Laboratory Results - last 24 hr 03/11/23 03/11/23 03/12/23 20:00 23:16 01:18 POC Glucose 267 H 251 H 228 H 03/12/23 03/12/23 06:01 11:44 POC Glucose 196 H 161 H Assessment and Plan (1) Dysphagia: Status: Acute (2) Paroxysmal atrial fibrillation: Status: Acute Plan 62M PMH CAD s/p CABG, paroxysmal afib, COPD, DM2, paranoid schizophrenia, hypothyroid, from [facility] presented with abdominal pain, distension, hypoxia. 1.Toxic metabolic encephalopathy -resolved -continue current medical regimen; will adjust at [facility] 2.Dysphagia -doing well post open G-tube insertion this a.m. -feeding started; will titrate as per dietary -if tolerated return to [facility] tomorrow afternoon 3.Paroxysmal afib -Metoprolol/amiodarone PO 400 mg bid x 2 weeks(end 8/30)...200mg daily(start 03/19) -if okay with surgery restart Eliquis in a.m. 4.Sepsis 2/2 Pneumonia and Candidal UTI(resolved) 5. Dm II -acceptable control on basal insulin/lispro correctional scale -adjust as indicated -add back orals after returns to [facility] 6.Paranoid schizophrenia -clozaril changes noted -adjust as indicated a [facility] Full code Requires ongoing hospitalization to monitor response to open G-tube. Time Spent With Patient Time: Total time managing care of this patient today ____ minutes. Quality Stroke Does the patient have a stroke diagnosis?: No VTE Prior VTE?: No VTE Risk Level:: Medical - moderate - high VTE Device Contraindication: Treatment Not Indicated VTE Drug Contraindication: N/A - Med Ordered
--- NOTE | 2023-03-12 14:36 | HE.PHANOTE ---
RE: clozapine Spoke to Dr. Jenkins about 2 missed doses of clozaril on 03/10 and 03/11. Patient was npo and had g tube placed today so will be resuming clozaril likely this evening 03/12. Dr. Jenkins says patient will most likely be returning back to [facility] tomorrow 03/13.
[2023-03-12 17:12] LABS: Glucose, Whole Blood 224 mg/dL (60-115)
[2023-03-12] MEDS: cloZAPine 25 MG TABLET 50 MG PO (23:01)
[2023-03-12 23:54] LABS: Glucose, Whole Blood 212 mg/dL (60-115)
[2023-03-13] VITALS (12 sets, daily range): BP systolic 83–132; BP diastolic 40–77; PULSE 60–129; RESP 12–22; TEMP 36–37.9; O2SAT 94–99
[2023-03-13] MEDS: Insulin Lispro 100 UNIT/ML 3 ML VIAL SUBCUT ×4 (00:09→16:51)
--- NOTE | 2023-03-13 03:44 | PM.EVENT ---
Event Note Date of Service: 03/13/23 Event Note: Patient noted to have small amount of bright red blood in ostomy NG tube has some dark flecks that look coffee-ground. Will hold feet right now, will obtain CBC, and started on pantoprazole IV. GI are ready on consult Time Spent With Patient Time: Total time managing care of this patient today ____ minutes.
[2023-03-13] MEDS: Pantoprazole Sodium 40 MG/10 ML VIAL IVPUSH ×2 (04:10→16:07)
[2023-03-13] MEDS: Lactated Ringers 1,000 ML 999 ML IV ×2 (04:14→05:20)
[2023-03-13 04:52] LABS: Basophils Absolute Auto 0.1 X10*3/uL (0.0-0.2); Basophils Percent Auto 0.5 % (0-2); Eosinophils Absolute Auto 0.3 X10*3/uL (0.0-0.4); Eosinophils Percent Auto 1.4 % (0-4); Hematocrit 34.7 % (42.0-52.0); Hemoglobin 11.1 g/dl (14.0-18.0); Imm Gran Abs Auto 0.12 X10*3/uL (0.00-0.03); Imm Gran Pct Auto 0.6 % (0.0-0.4); Lymphocytes Absolute Auto 1.7 X10*3/uL (1.2-4.9); Lymphocytes Percent Auto 8.5 % (20-40); MANUAL DIFF FLAG SCAN; Mean Corpuscular Hemoglobin 27.7 pg (27.0-33.0); Mean Corpuscular Volume 86.5 fL (80.0-98.0); Mean Platelet Volume 10.3 fL (9.4-12.4); Monocytes Absolute Auto 2.6 X10*3/uL (0.1-1.2); Monocytes Percent Auto 13.2 % (2-11); Neutrophils Absolute Auto 15.2 x10*3/uL (2.0-8.3); Neutrophils Percent Auto 75.8 % (45-73); Platelet Count 379 X10*3/uL (160-400); Red Blood Count 4.01 X10*6/uL (4.60-5.80); Red Cell Distribution Width 16.2 % (11.0-16.0); SCAN SMEAR FLAG 1
[2023-03-13 05:16] LABS: SLIDE REVIEW VERIFIED
--- NOTE | 2023-03-13 05:30 | PM.EVENT ---
Event Note Date of Service: 03/13/23 Event Note: Patient significantly hypotensive, with readings in the 80s over 50s and 60s and had sudden increase in his heart rate to the 120s 130s AFib. received 2 L of IV fluids, with improvement in his BP . Lactic acid normal, CBCs obtained showed WBC count of 20,000 which is significantly increased from recent labs. Chest x-ray showing worsening infiltrate concerning for worsening pneumonia Patient started on IV antibiotics CBC stable Time Spent With Patient Time: Total time managing care of this patient today ____ minutes.
[2023-03-13 05:32] LABS: Lactic Acid 1.3 mmol/L (0.5-2.0)
[2023-03-13 06:12] LABS: Glucose, Whole Blood 188 mg/dL (60-115)
[2023-03-13] MEDS: Piperacillin Sodium/Tazobactam 3.375 GM in 0.9 % Sodium Chloride 50 ML IV ×4 (06:13→22:31)
[2023-03-13 07:30] LABS: Anion Gap 13 (12-20); Blood Urea Nitrogen 12 mg/dL (9-16); Calcium 9.2 mg/dL (8.4-10.2); Carbon Dioxide 20 mmol/L (22-29); Chloride 105 mmol/L (96-108); Creatinine Clr Calc Pharmacy 104.5; Estimated Glomerular Filt Rate > 60; Glucose Random 203 mg/dL (60-115); Potassium 4.1 mmol/L (3.3-5.1); Sodium 134 mmol/L (135-145)
[2023-03-13 07:35] LABS: OBS Int Ctl Valid YES; OBS1 POSITIVE (NEGATIVE)
[2023-03-13] MEDS: Levothyroxine Sodium 100 MCG/5 ML VIAL 37.5 MCG IVPUSH (07:40)
[2023-03-13] MEDS: vancomycin/NS 2,000 MG/500 ML PLAST..BAG 250 MG IV (07:42)
[2023-03-13 07:43] LABS: Appearance Urine Clear; Color Urine Yellow; Glucose Urine UA 100 mg/dL (Negative); Leukocyte Esterase Urine Moderate (2+) (Negative); Nitrite Urine Negative (Negative); PH 6.5 (5.0-9.0); Specific Gravity - Urine 1.015 (1.005-1.025); UMIC TRIGGER UACC YES; Urine Blood Negative (Negative); Urine Ketones Trace mg/dL (Negative); Urine Protein Negative (Neg-Trace)
[2023-03-13 08:02] LABS: Bacteria Urine None Seen (None Seen); Hyaline Casts Urine 0-2 /LPF (0-2); Squamous Epithelial Cell Urine 0-2 /HPF (0-2); UACC Culture Trigger YES; WBC Urine >50 /HPF (0-5)
--- NOTE | 2023-03-13 08:05 | PC.NURSE ---
Pt with residual 325 from Gtube- dark brown and bilious smelling. feeds on hold. Pt placed on R side to facilitate gastric emptying. Upon recheck pt with 150 residual continues dark brown now with some scattered black specks noted. Ostomy initially with scant amt watery brown stool. upon recheck he was noted to have small amt reji red blood. Dr. Retana aware and tube feeds continued to be held. at approx 0350 pt converted back to afib with rate 120-130's, bp noted to be 93/77, other arm 83/73 and manual of 85/40. Upon recheck of bleeding a creamy white purulent drainage noted directly from stoma. bag contents now creamy/pinkish/garcia purulent appearing and stoma somewhat hard to touch. temporal temp 98.2-99.8, per keaton whitehead for rectal temp which was 100.3. Pt bolused with 2L LR, zoxyn and vanco given, IV protonix given. bp up to 99/69 after 1st bolus and 113/72 after 2nd bolus. stool and urine specs sent, Lab draws as ordered. Pt more drowsy this am but still very fidgety, difficult to get xray due to fidgetyness, MD aware re CT scan and concerns for falling/staying still for CT. Oncoming RN and charge aware.
[2023-03-13] MEDS: Amiodarone HCL 200 MG TABLET 400 MG G-TUBE ×2 (08:21→20:24)
[2023-03-13] MEDS: polyethylene glycoL 3350 17 GM POWD.PACK G-TUBE (08:21)
--- NOTE | 2023-03-13 08:25 | HE.PHANOTE ---
RE VANCO PT RESTARTED ON VANCO AND LOADED Again with 2000mg. then will resume last dose of 1500 q12h. next level due 03/14 @1800 sarah
--- NOTE | 2023-03-13 10:10 | MHC.CLN ---
F/U PEG PLACED 03/11/23. TUBE FEEDING STARTED 03/12. TF ON HOLD DUE TO HIGH RESIDUALS. WHEN ABLE TO RESUME TUBE FEEDING, RECOMMEND TUBE FEED GLUCERNA AT MAX GOAL RATE 95ML/HR WITH 240ML FWF Q 6 HRS. PROVIDES 2280KCALS (28KCALS/KG), 95G PROTEIN (1.2G/KG), 2905ML TOTAL FROM FORMULA AND FLUSHES (36ML/KG). MONITOR TOLERANCE, RESIDUALS AND LYTES.
[2023-03-13 11:07] LABS: Glucose, Whole Blood 211 mg/dL (60-115)
--- NOTE | 2023-03-13 13:05 | MHC.SLORD ---
Addendum entered and electronically signed by Jesika Diaz MA, [employer] 03/13/23 14:45: Pt still sleeping, lethargic & not appropriate for PO trials. Original Note: Speech Language Pathology Order Status: Pt sleeping, not waking to sternal rub. No PO trials given d/t lethargic state.
--- NOTE | 2023-03-13 15:06 | MHC.CM.PN ---
EMR reviewed and per MD rounds, pt is not medically cleared for discharge due to hypotension, and chest x-ray showing worsening infiltrate concerning for worsening pneumonia with pt started on IV abx. CM will continue to follow.
[2023-03-13 15:46] LABS: Glucose, Whole Blood 174 mg/dL (60-115)
[2023-03-13] MEDS: 0.9 % Sodium Chloride 1,000 ML 999 ML IVCONT ×2 (15:57→17:03)
[2023-03-13] MEDS: 0.9 % Sodium Chloride Flush 3 ML SYRINGE IVFLUSH ×2 (16:00→20:24)
--- NOTE | 2023-03-13 16:38 | HO.PM.IMPN ---
Subjective Subjective Date of Service: 03/13/23 Interval History: Continues to decline. This afternoon pressures 80 systolic with minimal urine output. Minimally responsive Review of Systems Unable to obtain Physical Exam Vital Signs: Vital Signs: Last Vital Signs Temp 97.3 F 03/13/23 15:30 Pulse 102 H 03/13/23 15:30 Resp 12 03/13/23 15:30 BP 87/58 L 03/13/23 15:30 Pulse Ox 95 03/13/23 15:30 O2 Del Method Room Air 03/13/23 15:30 O2 Flow Rate 2 03/07/23 08:00 Oxygen Flow Rate 2 02/23/23 05:00 BMI result Body Mass Index 24.7 Const: Other: Somnolent; minimally arousable Resp: Other: Clear to auscultation bilaterally no rales rhonchi or wheezes Cardio: Other: No S4; positive S1-S2; no S3 murmurs rubs or gallops GI: Other: Ostomy bag with small amounts of bright red blood; feedings held. Some oozing from distal scar line. Bowel sounds quiet Extrem: Other: No edema Objective Data Active Medications Acetaminophen (Acetaminophen 325 Mg Tablet) 650 mg PO Q8H PRN PRN Reason: fever Last Admin: 03/02/23 05:42 Dose: 650 mg Documented By: SARAH Amiodarone HCl (Amiodarone Hcl 200 Mg Tablet) 400 mg G-TUBE BID [facility] Last Admin: 03/13/23 08:21 Dose: 400 mg Documented By: JORGE Benzonatate (Benzonatate 100 Mg Capsule) 200 mg PO TID PRN PRN Reason: Cough Clozapine (Clozapine 25 Mg Tablet) 50 mg PO BEDTIME [facility] Last Admin: 03/12/23 23:01 Dose: 50 mg Documented By: IRINA Dextrose (Dextrose 50 % 25 Gm/50 Ml Syringe) 25 gm IVPUSH Q15M PRN; Protocol PRN Reason: per Hypoglycemia Standing Ord. Last Admin: 02/21/23 07:53 Dose: 25 gm Documented By: PORTIA Comments: bg 67 Glucose (Glucose Gel 15 Gm Gel..Gram.) 15 gm PO Q15M PRN; Protocol PRN Reason: per Hypoglycemia Standing Ord. Piperacillin Sod/Tazobactam (Sod 3.375 gm/ Sodium Chloride) 50 mls @ 100 mls/hr IV Q6H [facility] Last Infusion: 03/13/23 12:31 Dose: 0 mls/hr Documented By: JORGE Vancomycin HCl 1,500 mg/ (Sodium Chloride) 500 mls @ 333.333 mls/hr IV Q12H [facility] Sodium Chloride (Ns) 1,000 mls @ 999 mls/hr IVCONT .Q1H1M [facility] Stop: 03/13/23 17:45 Last Admin: 03/13/23 15:57 Dose: 999 mls/hr Documented By: JORGE Insulin Human Lispro (Insulin Lispro 100 Unit/Ml 3 Ml Vial) 0 unit SUBCUT Q6H [facility]; Protocol Last Admin: 03/13/23 11:54 Dose: 4 unit Documented By: JORGE Levothyroxine Sodium (Levothyroxine Sodium 100 Mcg/5 Ml Vial) 37.5 mcg IVPUSH DAILY@0600 [facility] Last Admin: 03/13/23 07:40 Dose: 37.5 mcg Documented By: IRINA Melatonin (Melatonin 3 Mg Tablet) 6 mg PO BEDTIME PRN PRN Reason: Insomnia Morphine Sulfate (Morphine Sulfate 4 Mg/Ml Cartridge) 3 mg IVPUSH Q4H PRN; Protocol PRN Reason: Pain, Severe (Pain Scale 7-10) Olanzapine (Olanzapine 10 Mg Vial) 5 mg IM DAILY PRN PRN Reason: agitation Last Admin: 03/11/23 02:14 Dose: 5 mg Documented By: JOSEPH Pantoprazole Sodium (Pantoprazole Sodium 40 Mg/10 Ml Vial) 40 mg IVPUSH BID@0630,1630 [facility] Last Admin: 03/13/23 16:07 Dose: 40 mg Documented By: JORGE Pharmacy Consult (Consult Rx Vancomycin Dosing) 1 each MISCELLANE DAILY PRN PRN Reason: Consult order Polyethylene Glycol (Polyethylene Glycol 3350 17 Gm Powd.Pack) 17 gm G-TUBE DAILY [facility] Last Admin: 03/13/23 08:21 Dose: 17 gm Documented By: JORGE Sodium Chloride (0.9 % Sodium Chloride Flush 3 Ml Syringe) 3 ml IVFLUSH QSHIFT [facility] Last Admin: 03/13/23 16:00 Dose: 3 ml Documented By: JORGE Labs 03/13/23 04:27 03/13/23 Unknown Labs: Laboratory Results - last 24 hr 03/12/23 03/12/23 03/13/23 17:07 23:40 04:27 MCV 86.5 MCH 27.7 MCHC 32.0 RDW 16.2 H Plt Count 379 MPV 10.3 Immature Gran % (Auto) 0.6 H Neut % (Auto) 75.8 H Lymph % (Auto) 8.5 L [place] % (Auto) 13.2 H Eos % (Auto) 1.4 Baso % (Auto) 0.5 Lymph # (Auto) 1.7 [place] # (Auto) 2.6 H Eos # (Auto) 0.3 Baso # (Auto) 0.1 Abs Immat Gran (auto) 0.12 H Absolute Neuts (auto) 15.2 H Absolute Nucleated RBC 0.000 Nucleated RBC % (auto) 0.0 Smear Tech's Comments VERIFIED Anion Gap Estim Creat Clear Calc Estimated GFR POC Glucose 224 H 212 H Random Glucose Lactic Acid Calcium Urine Color Urine Appearance Urine pH Ur Specific [place] Urine Protein Urine Glucose (UA) Urine Ketones Urine Blood Urine Nitrite Ur Leukocyte Esterase Urine RBC Urine WBC Ur Squamous Epith Cells Urine Bacteria Hyaline Casts Stool Occult Blood 03/13/23 03/13/23 03/13/23 04:27 06:08 07:29 MCV MCH MCHC RDW Plt Count MPV Immature Gran % (Auto) Neut % (Auto) Lymph % (Auto) [place] % (Auto) Eos % (Auto) Baso % (Auto) Lymph # (Auto) [place] # (Auto) Eos # (Auto) Baso # (Auto) Abs Immat Gran (auto) Absolute Neuts (auto) Absolute Nucleated RBC Nucleated RBC % (auto) Smear Tech's Comments Anion Gap Estim Creat Clear Calc Estimated GFR POC Glucose 188 H Random Glucose Lactic Acid 1.3 Calcium Urine Color Yellow Urine Appearance Clear Urine pH 6.5 Ur Specific [place] 1.015 Urine Protein Negative Urine Glucose (UA) 100 H Urine Ketones Trace Urine Blood Negative Urine Nitrite Negative Ur Leukocyte Esterase Moderate (2+) H Urine RBC 6-10 H Urine WBC >50 H Ur Squamous Epith Cells 0-2 Urine Bacteria None Seen Hyaline Casts 0-2 Stool Occult Blood 03/13/23 03/13/23 03/13/23 07:29 11:03 15:41 MCV MCH MCHC RDW Plt Count MPV Immature Gran % (Auto) Neut % (Auto) Lymph % (Auto) [place] % (Auto) Eos % (Auto) Baso % (Auto) Lymph # (Auto) [place] # (Auto) Eos # (Auto) Baso # (Auto) Abs Immat Gran (auto) Absolute Neuts (auto) Absolute Nucleated RBC Nucleated RBC % (auto) Smear Tech's Comments Anion Gap Estim Creat Clear Calc Estimated GFR POC Glucose 211 H 174 H Random Glucose Lactic Acid Calcium Urine Color Urine Appearance Urine pH Ur Specific [place] Urine Protein Urine Glucose (UA) Urine Ketones Urine Blood Urine Nitrite Ur Leukocyte Esterase Urine RBC Urine WBC Ur Squamous Epith Cells Urine Bacteria Hyaline Casts Stool Occult Blood POSITIVE 03/13/23 Unknown MCV MCH MCHC RDW Plt Count MPV Immature Gran % (Auto) Neut % (Auto) Lymph % (Auto) [place] % (Auto) Eos % (Auto) Baso % (Auto) Lymph # (Auto) [place] # (Auto) Eos # (Auto) Baso # (Auto) Abs Immat Gran (auto) Absolute Neuts (auto) Absolute Nucleated RBC Nucleated RBC % (auto) Smear Tech's Comments Anion Gap 13 Estim Creat Clear Calc 104.5 Estimated GFR > 60 POC Glucose Random Glucose 203 H Lactic Acid Calcium 9.2 Urine Color Urine Appearance Urine pH Ur Specific [place] Urine Protein Urine Glucose (UA) Urine Ketones Urine Blood Urine Nitrite Ur Leukocyte Esterase Urine RBC Urine WBC Ur Squamous Epith Cells Urine Bacteria Hyaline Casts Stool Occult Blood Assessment and Plan (1) Dysphagia: Status: Acute (2) UGIB (upper gastrointestinal bleed): Status: Acute Plan 62M PMH CAD s/p CABG, paroxysmal afib, COPD, DM2, paranoid schizophrenia, hypothyroid, from [facility] presented with abdominal pain, distension, hypoxia. 1. Possible upper GI bleed -hold feedings at this time -continue to hold Xarelto -mildly hypotensive.... 2 L bolus of normal saline and follow 2.Dysphagia -will continue to hold feedings as per 1. 3.Paroxysmal afib -Metoprolol/amiodarone PO 400 mg bid x 2 weeks(end 03/18)...200mg daily(start 03/19) -hold Eliquis 4. Dm II -acceptable control on basal insulin/lispro correctional scale -adjust as indicated -add back orals after returns to [facility] 6.Paranoid schizophrenia -clozaril changes noted -adjust as indicated a [facility] Full code (call placed to family given change in status. Will call back related to DNR status) Requires ongoing hospitalization to monitor response to open G-tube. Time Spent With Patient Time: Total time managing care of this patient today ____ minutes. Quality Stroke Does the patient have a stroke diagnosis?: No VTE Prior VTE?: No VTE Risk Level:: Medical - moderate - high VTE Device Contraindication: Treatment Not Indicated VTE Drug Contraindication: N/A - Med Ordered
[2023-03-13] MEDS: vancomycin HCL 1,500 MG in 0.9 % Sodium Chloride 500 ML 333.33 MG IV (20:24)
[2023-03-13] MEDS: cloZAPine 25 MG TABLET 50 MG PO (20:24)
[2023-03-13 23:21] LABS: Glucose, Whole Blood 183 mg/dL (60-115)
[2023-03-14] MEDS: Insulin Lispro 100 UNIT/ML 3 ML VIAL SUBCUT ×4 (01:20→18:16)
[2023-03-14 03:40] VITALS: BP 115/62; PULSE 82; RESP 19; TEMP 36; O2SAT 95
[2023-03-14 05:46] LABS: Glucose, Whole Blood 163 mg/dL (60-115)
[2023-03-14] MEDS: Piperacillin Sodium/Tazobactam 3.375 GM in 0.9 % Sodium Chloride 50 ML IV ×3 (06:03→17:48)
[2023-03-14] MEDS: Pantoprazole Sodium 40 MG/10 ML VIAL IVPUSH ×2 (06:04→16:39)
[2023-03-14] MEDS: Levothyroxine Sodium 100 MCG/5 ML VIAL 37.5 MCG IVPUSH (06:05)
[2023-03-14 06:26] LABS: MANUAL DIFF FLAG NO
[2023-03-14 06:31] LABS: Basophils Absolute Auto 0.1 X10*3/uL (0.0-0.2); Basophils Percent Auto 0.5 % (0-2); Eosinophils Absolute Auto 0.5 X10*3/uL (0.0-0.4); Hematocrit 29.3 % (42.0-52.0); Hemoglobin 9.3 g/dl (14.0-18.0); Imm Gran Abs Auto 0.08 X10*3/uL (0.00-0.03); Imm Gran Pct Auto 0.7 % (0.0-0.4); Lymphocytes Absolute Auto 1.3 X10*3/uL (1.2-4.9); Lymphocytes Percent Auto 11.7 % (20-40); Mean Corpuscular HGB Conc 31.7 g/dl (31.0-36.0); Mean Corpuscular Hemoglobin 27.1 pg (27.0-33.0); Mean Corpuscular Volume 85.4 fL (80.0-98.0); Monocytes Absolute Auto 1.2 X10*3/uL (0.1-1.2); Monocytes Percent Auto 10.6 % (2-11); Neutrophils Absolute Auto 8.2 x10*3/uL (2.0-8.3); Neutrophils Percent Auto 72.5 % (45-73); Platelet Count 307 X10*3/uL (160-400); Red Blood Count 3.43 X10*6/uL (4.60-5.80); Red Cell Distribution Width 16.3 % (11.0-16.0); White Blood Count 11.4 X10*3/uL (4.8-10.8)
[2023-03-14 06:51] LABS: Alanine Aminotransferase 9 U/L (0-40); Albumin Level 2.8 g/dL (3.5-5.0); Alkaline Phosphatase 82 U/L (39-117); Anion Gap 11 (12-20); Aspartate Amino Transferase 15 U/L (5-37); Bilirubin Total 0.7 mg/dL (0.0-1.0); Blood Urea Nitrogen 7 mg/dL (9-16); Calcium 8.4 mg/dL (8.4-10.2); Carbon Dioxide 21 mmol/L (22-29); Chloride 108 mmol/L (96-108); Creatinine Clr Calc Pharmacy 118.4; Estimated Glomerular Filt Rate > 60; Glucose Fasting 179 mg/dL (60-99); Potassium 3.5 mmol/L (3.3-5.1); Sodium 136 mmol/L (135-145); Total Protein 5.7 g/dL (6.5-8.0)
[2023-03-14 07:44] VITALS: BP 101/59; PULSE 77; RESP 20; TEMP 36.7; O2SAT 97
[2023-03-14] MEDS: polyethylene glycoL 3350 17 GM POWD.PACK G-TUBE (08:07)
[2023-03-14] MEDS: Amiodarone HCL 200 MG TABLET 400 MG G-TUBE ×2 (08:08→22:14)
[2023-03-14] MEDS: 0.9 % Sodium Chloride Flush 3 ML SYRINGE IVFLUSH ×3 (08:09→22:15)
[2023-03-14] MEDS: vancomycin HCL 1,500 MG in 0.9 % Sodium Chloride 500 ML 333.33 MG IV ×2 (08:13→22:14)
[2023-03-14 11:49] LABS: Glucose, Whole Blood 168 mg/dL (60-115)
[2023-03-14 11:50] VITALS: BP 127/58; PULSE 77; RESP 20; TEMP 36.5; O2SAT 98
--- NOTE | 2023-03-14 13:11 | HO.PM.IMPN ---
Subjective Subjective Date of Service: 03/14/23 Interval History: Much more alert this a.m.. Good response to volume repletion Review of Systems Unable to obtain Physical Exam Vital Signs: Vital Signs: Last Vital Signs Temp 97.7 F 03/14/23 11:50 Pulse 77 03/14/23 11:50 Resp 20 03/14/23 11:50 BP 127/58 L 03/14/23 11:50 Pulse Ox 98 03/14/23 11:50 O2 Del Method Room Air 03/14/23 11:50 O2 Flow Rate 2 03/07/23 08:00 Oxygen Flow Rate 2 02/23/23 05:00 BMI result Body Mass Index 24.7 Const: Other: Somnolent; minimally arousable Resp: Other: Clear to auscultation bilaterally no rales rhonchi or wheezes Cardio: Other: No S4; positive S1-S2; no S3 murmurs rubs or gallops GI: Other: Ostomy bag with small amounts of bright red blood; feedings held. Some oozing from distal scar line. Bowel sounds quiet Extrem: Other: No edema Objective Data Active Medications Acetaminophen (Acetaminophen 325 Mg Tablet) 650 mg PO Q8H PRN PRN Reason: fever Last Admin: 03/02/23 05:42 Dose: 650 mg Documented By: SARAH Amiodarone HCl (Amiodarone Hcl 200 Mg Tablet) 400 mg G-TUBE BID [facility] Last Admin: 03/14/23 08:08 Dose: 400 mg Documented By: ARIANNAORRYesi Benzonatate (Benzonatate 100 Mg Capsule) 200 mg PO TID PRN PRN Reason: Cough Clozapine (Clozapine 25 Mg Tablet) 50 mg PO BEDTIME [facility] Last Admin: 03/13/23 20:24 Dose: 50 mg Documented By: BRANDON Dextrose (Dextrose 50 % 25 Gm/50 Ml Syringe) 25 gm IVPUSH Q15M PRN; Protocol PRN Reason: per Hypoglycemia Standing Ord. Last Admin: 02/21/23 07:53 Dose: 25 gm Documented By: PORTIA Comments: bg 67 Glucose (Glucose Gel 15 Gm Gel..Gram.) 15 gm PO Q15M PRN; Protocol PRN Reason: per Hypoglycemia Standing Ord. Piperacillin Sod/Tazobactam (Sod 3.375 gm/ Sodium Chloride) 50 mls @ 100 mls/hr IV Q6H [facility] Last Admin: 03/14/23 12:18 Dose: 100 mls/hr Documented By: WILDER Vancomycin HCl 1,500 mg/ (Sodium Chloride) 500 mls @ 333.333 mls/hr IV Q12H [facility] Last Infusion: 03/14/23 11:21 Dose: 0 mls/hr Documented By: WILDER Insulin Human Lispro (Insulin Lispro 100 Unit/Ml 3 Ml Vial) 0 unit SUBCUT Q6H [facility]; Protocol Last Admin: 03/14/23 12:15 Dose: 2 unit Documented By: WILDER Levothyroxine Sodium (Levothyroxine Sodium 100 Mcg/5 Ml Vial) 37.5 mcg IVPUSH DAILY@0600 [facility] Last Admin: 03/14/23 06:05 Dose: 37.5 mcg Documented By: BRANDON Melatonin (Melatonin 3 Mg Tablet) 6 mg PO BEDTIME PRN PRN Reason: Insomnia Morphine Sulfate (Morphine Sulfate 4 Mg/Ml Cartridge) 3 mg IVPUSH Q4H PRN; Protocol PRN Reason: Pain, Severe (Pain Scale 7-10) Olanzapine (Olanzapine 10 Mg Vial) 5 mg IM DAILY PRN PRN Reason: agitation Last Admin: 03/11/23 02:14 Dose: 5 mg Documented By: JOSEPH Pantoprazole Sodium (Pantoprazole Sodium 40 Mg/10 Ml Vial) 40 mg IVPUSH BID@0630,1630 [facility] Last Admin: 03/14/23 06:04 Dose: 40 mg Documented By: BRANDON Pharmacy Consult (Consult Rx Vancomycin Dosing) 1 each MISCELLANE DAILY PRN PRN Reason: Consult order Polyethylene Glycol (Polyethylene Glycol 3350 17 Gm Powd.Pack) 17 gm G-TUBE DAILY [facility] Last Admin: 03/14/23 08:07 Dose: 17 gm Documented By: WILDER Sodium Chloride (0.9 % Sodium Chloride Flush 3 Ml Syringe) 3 ml IVFLUSH QSHIFT ON [facility] Last Admin: 03/14/23 08:09 Dose: 3 ml Documented By: WILDER Labs 03/14/23 06:06 03/14/23 06:06 Labs: Laboratory Results - last 24 hr 03/13/23 03/13/23 03/14/23 15:41 23:18 05:43 MCV MCH MCHC RDW Plt Count MPV Immature Gran % (Auto) Neut % (Auto) Lymph % (Auto) [place] % (Auto) Eos % (Auto) Baso % (Auto) Lymph # (Auto) [place] # (Auto) Eos # (Auto) Baso # (Auto) Abs Immat Gran (auto) Absolute Neuts (auto) Absolute Nucleated RBC Nucleated RBC % (auto) Anion Gap Estim Creat Clear Calc Estimated GFR POC Glucose 174 H 183 H 163 H Fasting Glucose Calcium Total Bilirubin AST ALT Alkaline Phosphatase Total Protein Albumin 03/14/23 03/14/23 03/14/23 06:06 06:06 11:45 MCV 85.4 MCH 27.1 MCHC 31.7 RDW 16.3 H Plt Count 307 MPV 10.0 Immature Gran % (Auto) 0.7 H Neut % (Auto) 72.5 Lymph % (Auto) 11.[address] [place] % (Auto) 10.6 Eos % (Auto) 4.0 Baso % (Auto) 0.5 Lymph # (Auto) 1.3 [place] # (Auto) 1.2 Eos # (Auto) 0.5 H Baso # (Auto) 0.1 Abs Immat Gran (auto) 0.08 H Absolute Neuts (auto) 8.2 Absolute Nucleated RBC 0.000 Nucleated RBC % (auto) 0.0 Anion Gap 11 L Estim Creat Clear Calc 118.4 Estimated GFR > 60 POC Glucose 168 H Fasting Glucose 179 H Calcium 8.4 D Total Bilirubin 0.7 AST 15 ALT 9 Alkaline Phosphatase 82 Total Protein 5.7 L Albumin 2.8 L Microbiology Microbiology Results: Microbiology 03/13/23 06:50 Urine Culture - Preliminary Urine Catheterized - Straight Catheter No growth to date. 03/13/23 05:48 Blood Culture - Preliminary Blood - Venous No growth after 24 hours. 03/13/23 05:48 Blood Culture - Preliminary Blood - Venous No growth after 24 hours. Assessment and Plan (1) UGIB (upper gastrointestinal bleed): Status: Acute (2) Dysphagia: Status: Acute (3) Paroxysmal atrial fibrillation: Status: Acute Plan 62M PMH CAD s/p CABG, paroxysmal afib, COPD, DM2, paranoid schizophrenia, hypothyroid, from [facility] presented with abdominal pain, distension, hypoxia. 1. Possible upper GI bleed (self-limiting) -tube feedings restarted without issue -restart Eliquis in a.m. if no further bleeding 2.Dysphagia -restart feedings and follow clinically 3.Paroxysmal afib -Metoprolol/amiodarone PO 400 mg bid x 2 weeks(end 03/18)...200mg daily(start 03/19) -hold Eliquis 4. Dm II -acceptable control on basal insulin/lispro correctional scale -adjust as indicated -add back orals after returns to [facility] 6.Paranoid schizophrenia -clozaril changes noted -adjust as indicated a [facility] Full code (call placed to family given change in status. Will call back related to DNR status) Requires ongoing hospitalization to monitor response to open G-tube. Time Spent With Patient Time: Total time managing care of this patient today ____ minutes. Quality Stroke Does the patient have a stroke diagnosis?: No VTE Prior VTE?: No VTE Risk Level:: Medical - moderate - high VTE Device Contraindication: Treatment Not Indicated VTE Drug Contraindication: N/A - Med Ordered
[2023-03-14 15:44] VITALS: BP 127/68; PULSE 80; RESP 24; TEMP 37.2; O2SAT 96
[2023-03-14 18:15] LABS: Glucose, Whole Blood 176 mg/dL (60-115)
[2023-03-14 18:22] LABS: Vancomycin Random 15.6 mcg/mL (15-20)
[2023-03-14 20:00] VITALS: BP 101/66; PULSE 78; RESP 16; TEMP 36.4; O2SAT 98
[2023-03-14] MEDS: cloZAPine 25 MG TABLET 50 MG PO (22:14)
[2023-03-14 22:18] LABS: Glucose, Whole Blood 148 mg/dL (60-115)
[2023-03-14 23:37] VITALS: BP 107/65; PULSE 76; RESP 20; TEMP 36.7; O2SAT 97
[2023-03-15] MEDS: Piperacillin Sodium/Tazobactam 3.375 GM in 0.9 % Sodium Chloride 50 ML IV ×4 (00:34→17:07)
[2023-03-15 03:58] VITALS: BP 92/69; PULSE 65; RESP 20; TEMP 36.6; O2SAT 95
[2023-03-15] MEDS: Levothyroxine Sodium 100 MCG/5 ML VIAL 37.5 MCG IVPUSH (05:00)
[2023-03-15] MEDS: Pantoprazole Sodium 40 MG/10 ML VIAL IVPUSH ×2 (05:00→17:08)
[2023-03-15 06:16] LABS: MANUAL DIFF FLAG NO
[2023-03-15 06:43] LABS: Alanine Aminotransferase 13 U/L (0-40); Albumin Level 2.8 g/dL (3.5-5.0); Alkaline Phosphatase 82 U/L (39-117); Anion Gap 12 (12-20); Aspartate Amino Transferase 17 U/L (5-37); Bilirubin Total 0.8 mg/dL (0.0-1.0); Blood Urea Nitrogen 6 mg/dL (9-16); Calcium 8.6 mg/dL (8.4-10.2); Carbon Dioxide 21 mmol/L (22-29); Chloride 108 mmol/L (96-108); Estimated Glomerular Filt Rate > 60; Glucose Fasting 201 mg/dL (60-99); Potassium 3.5 mmol/L (3.3-5.1); Sodium 137 mmol/L (135-145); Total Protein 5.8 g/dL (6.5-8.0)
[2023-03-15 06:55] LABS: Glucose, Whole Blood 189 mg/dL (60-115)
[2023-03-15] MEDS: Insulin Lispro 100 UNIT/ML 3 ML VIAL SUBCUT (06:55)
[2023-03-15 07:14] LABS: Basophils Percent Auto 0.5 % (0-2); Eosinophils Absolute Auto 0.4 X10*3/uL (0.0-0.4); Eosinophils Percent Auto 4.7 % (0-4); Hematocrit 30.1 % (42.0-52.0); Hemoglobin 9.7 g/dl (14.0-18.0); Imm Gran Abs Auto 0.05 X10*3/uL (0.00-0.03); Imm Gran Pct Auto 0.6 % (0.0-0.4); Lymphocytes Absolute Auto 1.3 X10*3/uL (1.2-4.9); Lymphocytes Percent Auto 15.3 % (20-40); Mean Corpuscular HGB Conc 32.2 g/dl (31.0-36.0); Mean Corpuscular Hemoglobin 27.3 pg (27.0-33.0); Mean Corpuscular Volume 84.8 fL (80.0-98.0); Mean Platelet Volume 10.6 fL (9.4-12.4); Monocytes Absolute Auto 0.8 X10*3/uL (0.1-1.2); Monocytes Percent Auto 9.5 % (2-11); Neutrophils Percent Auto 69.4 % (45-73); Platelet Count 309 X10*3/uL (160-400); Red Blood Count 3.55 X10*6/uL (4.60-5.80); Red Cell Distribution Width 15.9 % (11.0-16.0); White Blood Count 8.6 X10*3/uL (4.8-10.8)
[2023-03-15 07:16] VITALS: BP 91/65; PULSE 86; RESP 20; TEMP 36.4; O2SAT 96
[2023-03-15] MEDS: 0.9 % Sodium Chloride Flush 3 ML SYRINGE IVFLUSH ×2 (08:36→17:08)
[2023-03-15] MEDS: vancomycin HCL 1,500 MG in 0.9 % Sodium Chloride 500 ML 333.33 MG IV ×2 (08:37→20:22)
[2023-03-15] MEDS: Amiodarone HCL 200 MG TABLET 400 MG G-TUBE ×2 (08:38→20:26)
[2023-03-15] MEDS: polyethylene glycoL 3350 17 GM POWD.PACK G-TUBE (09:11)
[2023-03-15 11:07] VITALS: BP 108/62; PULSE 80; RESP 20; TEMP 36.6; O2SAT 96
[2023-03-15 11:25] LABS: Glucose, Whole Blood 168 mg/dL (60-115)
--- NOTE | 2023-03-15 12:43 | P.PNIM_ITS ---
Subjective Subjective Date of Service: 03/15/23 Interval History: Doing better today. Appears at baseline as compared to [facility]. Family at bedside. All in agreement with code status Review of Systems Unable to obtain Physical Exam Vital Signs: Vital Signs: Last Vital Signs Temp 97.9 F 03/15/23 11:07 Pulse 80 03/15/23 11:07 Resp 20 03/15/23 11:07 BP 108/62 03/15/23 11:07 Pulse Ox 96 03/15/23 11:07 O2 Del Method Room Air 03/15/23 11:07 O2 Flow Rate 2 03/07/23 08:00 Oxygen Flow Rate 2 02/23/23 05:00 BMI result Body Mass Index 24.7 Const: Other: Somnolent; minimally arousable Resp: Other: Clear to auscultation bilaterally no rales rhonchi or wheezes Cardio: Other: No S4; positive S1-S2; no S3 murmurs rubs or gallops GI: Other: Ostomy bag with small amounts of bright red blood; feedings held. Some oozing from distal scar line. Bowel sounds quiet Extrem: Other: No edema Objective Data Active Medications Acetaminophen (Acetaminophen 325 Mg Tablet) 650 mg PO Q8H PRN PRN Reason: fever Last Admin: 03/02/23 05:42 Dose: 650 mg Documented By: SARAH Amiodarone HCl (Amiodarone Hcl 200 Mg Tablet) 400 mg G-TUBE BID [facility] Last Admin: 03/15/23 08:38 Dose: 400 mg Documented By: ARIANNAORRYesi Benzonatate (Benzonatate 100 Mg Capsule) 200 mg PO TID PRN PRN Reason: Cough Clozapine (Clozapine 25 Mg Tablet) 50 mg PO BEDTIME [facility] Last Admin: 03/14/23 22:14 Dose: 50 mg Documented By: BRANDON Dextrose (Dextrose 50 % 25 Gm/50 Ml Syringe) 25 gm IVPUSH Q15M PRN; Protocol PRN Reason: per Hypoglycemia Standing Ord. Last Admin: 02/21/23 07:53 Dose: 25 gm Documented By: PORTIA Comments: bg 67 Glucose (Glucose Gel 15 Gm Gel..Gram.) 15 gm PO Q15M PRN; Protocol PRN Reason: per Hypoglycemia Standing Ord. Piperacillin Sod/Tazobactam (Sod 3.375 gm/ Sodium Chloride) 50 mls @ 100 mls/hr IV Q6H [facility] Last Admin: 03/15/23 12:06 Dose: 100 mls/hr Documented By: WILDER Vancomycin HCl 1,500 mg/ (Sodium Chloride) 500 mls @ 333.333 mls/hr IV Q12H [facility] Last Infusion: 03/15/23 11:49 Dose: 0 mls/hr Documented By: WILDER Insulin Human Lispro (Insulin Lispro 100 Unit/Ml 3 Ml Vial) 0 unit SUBCUT Q6H [facility]; Protocol Last Admin: 03/15/23 12:04 Dose: Not Given Documented By: WILDER Non-Admin Reason: tube feeding paused Levothyroxine Sodium (Levothyroxine Sodium 100 Mcg/5 Ml Vial) 37.5 mcg IVPUSH DAILY@0600 [facility] Last Admin: 03/15/23 05:00 Dose: 37.5 mcg Documented By: BRANDON Comments: Melatonin (Melatonin 3 Mg Tablet) 6 mg PO BEDTIME PRN PRN Reason: Insomnia Morphine Sulfate (Morphine Sulfate 4 Mg/Ml Cartridge) 3 mg IVPUSH Q4H PRN; Protocol PRN Reason: Pain, Severe (Pain Scale 7-10) Olanzapine (Olanzapine 10 Mg Vial) 5 mg IM DAILY PRN PRN Reason: agitation Last Admin: 03/11/23 02:14 Dose: 5 mg Documented By: JOSEPH Pantoprazole Sodium (Pantoprazole Sodium 40 Mg/10 Ml Vial) 40 mg IVPUSH BID@0630,1630 [facility] Last Admin: 03/15/23 05:00 Dose: 40 mg Documented By: BRANDON Pharmacy Consult (Consult Rx Vancomycin Dosing) 1 each MISCELLANE DAILY PRN PRN Reason: Consult order Polyethylene Glycol (Polyethylene Glycol 3350 17 Gm Powd.Pack) 17 gm G-TUBE DAILY [facility] Last Admin: 03/15/23 09:11 Dose: 17 gm Documented By: WILDER Sodium Chloride (0.9 % Sodium Chloride Flush 3 Ml Syringe) 3 ml IVFLUSH QSHIFT [facility] Last Admin: 03/15/23 08:36 Dose: 3 ml Documented By: WILDER Labs 03/15/23 06:11 03/15/23 06:11 Labs: Laboratory Results - last 24 hr 08/03/14/23 03/14/23 17:52 18:12 22:12 MCV MCH MCHC RDW Plt Count MPV Immature Gran % (Auto) Neut % (Auto) Lymph % (Auto) [place] % (Auto) Eos % (Auto) Baso % (Auto) Lymph # (Auto) [place] # (Auto) Eos # (Auto) Baso # (Auto) Abs Immat Gran (auto) Absolute Neuts (auto) Absolute Nucleated RBC Nucleated RBC % (auto) Anion Gap Estim Creat Clear Calc Estimated GFR POC Glucose 176 H 148 H Fasting Glucose Calcium Total Bilirubin AST ALT Alkaline Phosphatase Total Protein Albumin Random Vancomycin 15.6 03/14/23 03/15/23 03/15/23 22:12 06:11 06:11 MCV 84.8 MCH 27.3 MCHC 32.2 RDW 15.9 Plt Count 309 MPV 10.6 Immature Gran % (Auto) 0.6 H Neut % (Auto) 69.4 Lymph % (Auto) 15.3 L [place] % (Auto) 9.5 Eos % (Auto) 4.7 H Baso % (Auto) 0.5 Lymph # (Auto) 1.3 [place] # (Auto) 0.8 Eos # (Auto) 0.4 Baso # (Auto) 0.0 Abs Immat Gran (auto) 0.05 H Absolute Neuts (auto) 6.0 Absolute Nucleated RBC 0.000 Nucleated RBC % (auto) 0.0 Anion Gap 12 Estim Creat Clear Calc 115.0 Estimated GFR > 60 POC Glucose 148 H Fasting Glucose 201 H Calcium 8.6 Total Bilirubin 0.8 AST 17 ALT 13 Alkaline Phosphatase 82 Total Protein 5.8 L Albumin 2.8 L Random Vancomycin 03/15/23 03/15/23 06:51 11:22 MCV MCH MCHC RDW Plt Count MPV Immature Gran % (Auto) Neut % (Auto) Lymph % (Auto) [place] % (Auto) Eos % (Auto) Baso % (Auto) Lymph # (Auto) [place] # (Auto) Eos # (Auto) Baso # (Auto) Abs Immat Gran (auto) Absolute Neuts (auto) Absolute Nucleated RBC Nucleated RBC % (auto) Anion Gap Estim Creat Clear Calc Estimated GFR POC Glucose 189 H 168 H Fasting Glucose Calcium Total Bilirubin AST ALT Alkaline Phosphatase Total Protein Albumin Random Vancomycin Microbiology Microbiology Results: Microbiology 03/13/23 06:50 Urine Culture - Final Urine Catheterized - Straight Catheter No growth. 03/13/23 05:48 Blood Culture - Preliminary Blood - Venous No growth after 48 hours. 03/13/23 05:48 Blood Culture - Preliminary Blood - Venous No growth after 48 hours. Assessment and Plan (1) UGIB (upper gastrointestinal bleed): Status: Acute (2) Pneumonia: Status: Acute (3) Type 2 diabetes mellitus: Status: Acute Plan 62M PMH CAD s/p CABG, paroxysmal afib, COPD, DM2, paranoid schizophrenia, hypothyroid, from [facility] presented with abdominal pain, distension, hypoxia. 1. Possible upper GI bleed (self-limiting) -tube feedings restarted .. Somewhat rhonchorous this a.m. -will hold tube feedings and follow clinically. -hopefully return to [facility] tomorrow; will start bolus feedings and avoid feedings 3-4 hours prior to HS 2. Bilateral patchy infiltrates -vancomycin/Zosyn (3) 3.Paroxysmal afib -Metoprolol/amiodarone PO 400 mg bid x 2 weeks(end 03/18)...200mg daily(start 03/19) -Eliquis 5 mg b.i.d. 4. Dm II -acceptable control on basal insulin/lispro correctional scale -adjust as indicated -add back orals after returns to [facility] 6.Paranoid schizophrenia -clozaril changes noted -adjust as indicated a [facility] DNR DNI. Discussed length with family Requires ongoing hospitalization Time Spent With Patient Time: Total time managing care of this patient today ____ minutes. Quality Stroke Does the patient have a stroke diagnosis?: No VTE Prior VTE?: No VTE Risk Level:: Medical - moderate - high VTE Device Contraindication: Treatment Not Indicated VTE Drug Contraindication: N/A - Med Ordered
--- NOTE | 2023-03-15 15:21 | PC.NURSE ---
On assessment this morning, pt lung sounds crackles throughout. Provider notified and per provider, tube feedings were held. Reassessed around 1300, with improvement to lung sounds. Provider notified and per provider, tube feedings to be held overnight.
[2023-03-15 15:36] VITALS: BP 104/62; PULSE 80; RESP 18; TEMP 37; O2SAT 96
[2023-03-15 17:44] LABS: Glucose, Whole Blood 148 mg/dL (60-115)
[2023-03-15 18:36] LABS: Vancomycin Random 17.1 mcg/mL (15-20)
[2023-03-15 19:32] VITALS: BP 112/64; PULSE 79; RESP 18; TEMP 37; O2SAT 98
[2023-03-15] MEDS: cloZAPine 25 MG TABLET 50 MG PO (20:26)
[2023-03-15 23:55] VITALS: BP 124/70; PULSE 77; RESP 18; TEMP 37; O2SAT 96
[2023-03-16 00:18] LABS: Glucose, Whole Blood 140 mg/dL (60-115)
[2023-03-16] MEDS: Piperacillin Sodium/Tazobactam 3.375 GM in 0.9 % Sodium Chloride 50 ML IV ×5 (01:33→22:46)
[2023-03-16] MEDS: 0.9 % Sodium Chloride Flush 3 ML SYRINGE IVFLUSH ×4 (01:33→22:46)
[2023-03-16 03:25] VITALS: BP 106/61; PULSE 75; RESP 20; TEMP 36.2; O2SAT 94
[2023-03-16] MEDS: Levothyroxine Sodium 100 MCG/5 ML VIAL 37.5 MCG IVPUSH (05:52)
[2023-03-16 06:07] LABS: MANUAL DIFF FLAG NO
[2023-03-16 06:09] LABS: Basophils Percent Auto 0.4 % (0-2); Eosinophils Absolute Auto 0.4 X10*3/uL (0.0-0.4); Eosinophils Percent Auto 4.6 % (0-4); Hemoglobin 9.9 g/dl (14.0-18.0); Imm Gran Abs Auto 0.03 X10*3/uL (0.00-0.03); Imm Gran Pct Auto 0.4 % (0.0-0.4); Lymphocytes Absolute Auto 1.4 X10*3/uL (1.2-4.9); Lymphocytes Percent Auto 17.7 % (20-40); Mean Corpuscular HGB Conc 31.9 g/dl (31.0-36.0); Mean Corpuscular Hemoglobin 27.3 pg (27.0-33.0); Mean Corpuscular Volume 85.4 fL (80.0-98.0); Mean Platelet Volume 9.5 fL (9.4-12.4); Monocytes Absolute Auto 0.7 X10*3/uL (0.1-1.2); Neutrophils Absolute Auto 5.2 x10*3/uL (2.0-8.3); Neutrophils Percent Auto 67.9 % (45-73); Platelet Count 304 X10*3/uL (160-400); Red Blood Count 3.63 X10*6/uL (4.60-5.80); Red Cell Distribution Width 15.9 % (11.0-16.0); White Blood Count 7.6 X10*3/uL (4.8-10.8)
[2023-03-16 06:11] LABS: Glucose, Whole Blood 177 mg/dL (60-115)
[2023-03-16] MEDS: Insulin Lispro 100 UNIT/ML 3 ML VIAL SUBCUT ×2 (06:17→12:12)
[2023-03-16 06:25] LABS: Alanine Aminotransferase 13 U/L (0-40); Alkaline Phosphatase 76 U/L (39-117); Anion Gap 13 (12-20); Aspartate Amino Transferase 15 U/L (5-37); Bilirubin Total 0.8 mg/dL (0.0-1.0); Blood Urea Nitrogen 6 mg/dL (9-16); Calcium 8.8 mg/dL (8.4-10.2); Carbon Dioxide 21 mmol/L (22-29); Chloride 110 mmol/L (96-108); Creatinine Clr Calc Pharmacy 113.4; Estimated Glomerular Filt Rate > 60; Glucose Fasting 179 mg/dL (60-99); Potassium 3.5 mmol/L (3.3-5.1); Sodium 140 mmol/L (135-145)
[2023-03-16 07:39] VITALS: BP 101/62; PULSE 91; RESP 16; TEMP 36.7; O2SAT 93
[2023-03-16] MEDS: Amiodarone HCL 200 MG TABLET 400 MG G-TUBE ×2 (08:15→22:45)
[2023-03-16] MEDS: polyethylene glycoL 3350 17 GM POWD.PACK G-TUBE (08:15)
[2023-03-16] MEDS: vancomycin HCL 1,500 MG in 0.9 % Sodium Chloride 500 ML 333.3 MG IV (08:15)
--- NOTE | 2023-03-16 10:48 | MHC.CM.PN ---
Per ROUNDS discussion, Patient is not yet medically cleared for dc (2 IV ABT & needs a Nutritional Consult); Returning to LTC is the goal and CM will continue to follow.
[2023-03-16 11:12] VITALS: BP 105/65; PULSE 82; RESP 16; TEMP 36.6; O2SAT 98
[2023-03-16 11:30] LABS: Glucose, Whole Blood 153 mg/dL (60-115)
--- NOTE | 2023-03-16 11:44 | MHC.CLN ---
F/U AND CONSULT TF ON HOLD R/T NOTED POSSIBLE UGIB CONSULT TO SWITCH TF TO BOLUS WHEN ABLE TO RESUME TUBE FEEDING, RECOMMEND TUBE FEED GLUCERNA BOLUS 380ML Q 4 HRS WITH 240ML FWF Q 6 HRS TO PROVIDE 2280KCALS (28KCALS/KG), 95G PROTEIN (1.2G/KG), 2905ML TOTAL FROM FORMULA AND FLUSHES (36ML/KG) MONITOR TOLERANCE, RESIDUALS AND LYTES
--- NOTE | 2023-03-16 13:28 | PC.NURSE ---
Bladder scanned patient at 1215 for 975cc. Patient able to void 350cc in urinal. Attempted to insert straight catheter to empty bladder at 1300. Unable to advance catheter due to increased resistance. MD notified. MD order to continue to monitor and re bladder scan q shift.
--- NOTE | 2023-03-16 13:57 | MHC.SLORD ---
Speech Language Pathology Order Status: Yesterday RN noted lung sounds crackles throughout. TF currently on hold per provider. Hold [employer] re-eval.
[2023-03-16 15:20] VITALS: BP 117/61; PULSE 83; RESP 14; TEMP 36.8; O2SAT 97
--- NOTE | 2023-03-16 16:58 | HO.PM.IMPN ---
Subjective Subjective Date of Service: 03/16/23 Interval History: somnolent arousable appears comfortable, offers no acute complaints, G-tube feedings on hold due to bilateral rhonchi no recent fevers, no chills, stable oxygenation, no acute issues overnight. Review of Systems Unobtainable due to mental status. Physical Exam Vital Signs: Vital Signs: Last Vital Signs Temp 98.3 F 03/16/23 15:20 Pulse 83 03/16/23 15:20 Resp 14 03/16/23 15:20 BP 117/61 03/16/23 15:20 Pulse Ox 97 03/16/23 15:20 O2 Del Method Room Air 03/16/23 15:20 O2 Flow Rate 2 03/07/23 08:00 Oxygen Flow Rate 2 02/23/23 05:00 BMI result Body Mass Index 24.7 Const: Other: Constitutional :? somnolent arousable, not in distress Neck : Normal inspection, Supple Cardiovascular : irregular irregular Respiratory : good bilateral air entry,?few basal crackles Gastrointestinal:? soft,? bowel sounds audible , Non tender, Ostomy bag no bleeding noted Skin : Warm, Dry Extremities no lower extremity edema Neurological : awake, disoriented, No focal deficit Objective Data Active Medications Acetaminophen (Acetaminophen 325 Mg Tablet) 650 mg PO Q8H PRN PRN Reason: fever Last Admin: 03/02/23 05:42 Dose: 650 mg Documented By: SARAH Amiodarone HCl (Amiodarone Hcl 200 Mg Tablet) 400 mg G-TUBE BID [facility] Last Admin: 03/16/23 08:15 Dose: 400 mg Documented By: REG Benzonatate (Benzonatate 100 Mg Capsule) 200 mg PO TID PRN PRN Reason: Cough Clozapine (Clozapine 25 Mg Tablet) 50 mg PO BEDTIME [facility] Last Admin: 03/15/23 20:26 Dose: 50 mg Documented By: HALLIE Dextrose (Dextrose 50 % 25 Gm/50 Ml Syringe) 25 gm IVPUSH Q15M PRN; Protocol PRN Reason: per Hypoglycemia Standing Ord. Last Admin: 02/21/23 07:53 Dose: 25 gm Documented By: PORTIA Comments: bg 67 Glucose (Glucose Gel 15 Gm Gel..Gram.) 15 gm PO Q15M PRN; Protocol PRN Reason: per Hypoglycemia Standing Ord. Piperacillin Sod/Tazobactam (Sod 3.375 gm/ Sodium Chloride) 50 mls @ 100 mls/hr IV Q6H [facility] Last Admin: 03/16/23 16:25 Dose: 100 mls/hr Documented By: JORGE Insulin Human Lispro (Insulin Lispro 100 Unit/Ml 3 Ml Vial) 0 unit SUBCUT Q6H [facility]; Protocol Last Admin: 03/16/23 12:12 Dose: 2 unit Documented By: REG Levothyroxine Sodium (Levothyroxine Sodium 100 Mcg/5 Ml Vial) 37.5 mcg IVPUSH DAILY@0600 [facility] Last Admin: 03/16/23 05:52 Dose: 37.5 mcg Documented By: ABEL Melatonin (Melatonin 3 Mg Tablet) 6 mg PO BEDTIME PRN PRN Reason: Insomnia Olanzapine (Olanzapine 10 Mg Vial) 5 mg IM DAILY PRN PRN Reason: agitation Last Admin: 03/11/23 02:14 Dose: 5 mg Documented By: JOSEPH Pharmacy Consult (Consult Rx Vancomycin Dosing) 1 each MISCELLANE DAILY PRN PRN Reason: Consult order Polyethylene Glycol (Polyethylene Glycol 3350 17 Gm Powd.Pack) 17 gm G-TUBE DAILY [facility] Last Admin: 03/16/23 08:15 Dose: 17 gm Documented By: REG Sodium Chloride (0.9 % Sodium Chloride Flush 3 Ml Syringe) 3 ml IVFLUSH QSHIFT [facility] Last Admin: 03/16/23 12:12 Dose: 3 ml Documented By: REG Labs 03/16/23 05:53 03/16/23 05:53 Labs: Laboratory Results - last 24 hr 03/15/23 03/15/23 03/16/23 17:39 18:15 00:14 MCV MCH MCHC RDW Plt Count MPV Immature Gran % (Auto) Neut % (Auto) Lymph % (Auto) [place] % (Auto) Eos % (Auto) Baso % (Auto) Lymph # (Auto) [place] # (Auto) Eos # (Auto) Baso # (Auto) Abs Immat Gran (auto) Absolute Neuts (auto) Absolute Nucleated RBC Nucleated RBC % (auto) Anion Gap Estim Creat Clear Calc Estimated GFR POC Glucose 148 H 140 H Fasting Glucose Calcium Total Bilirubin AST ALT Alkaline Phosphatase Total Protein Albumin Random Vancomycin 17.1 03/16/23 03/16/23 03/16/23 05:53 05:53 06:07 MCV 85.4 MCH 27.3 MCHC 31.9 RDW 15.9 Plt Count 304 MPV 9.5 Immature Gran % (Auto) 0.4 Neut % (Auto) 67.9 Lymph % (Auto) 17.7 L [place] % (Auto) 9.0 Eos % (Auto) 4.6 H Baso % (Auto) 0.4 Lymph # (Auto) 1.4 [place] # (Auto) 0.7 Eos # (Auto) 0.4 Baso # (Auto) 0.0 Abs Immat Gran (auto) 0.03 Absolute Neuts (auto) 5.2 Absolute Nucleated RBC 0.000 Nucleated RBC % (auto) 0.0 Anion Gap 13 Estim Creat Clear Calc 113.4 Estimated GFR > 60 POC Glucose 177 H Fasting Glucose 179 H Calcium 8.8 Total Bilirubin 0.8 AST 15 ALT 13 Alkaline Phosphatase 76 Total Protein 6.0 L Albumin 3.0 L Random Vancomycin 03/16/23 11:10 MCV MCH MCHC RDW Plt Count MPV Immature Gran % (Auto) Neut % (Auto) Lymph % (Auto) [place] % (Auto) Eos % (Auto) Baso % (Auto) Lymph # (Auto) [place] # (Auto) Eos # (Auto) Baso # (Auto) Abs Immat Gran (auto) Absolute Neuts (auto) Absolute Nucleated RBC Nucleated RBC % (auto) Anion Gap Estim Creat Clear Calc Estimated GFR POC Glucose 153 H Fasting Glucose Calcium Total Bilirubin AST ALT Alkaline Phosphatase Total Protein Albumin Random Vancomycin Assessment and Plan (1) UGIB (upper gastrointestinal bleed): Status: Acute (2) Pneumonia: Status: Acute (3) Type 2 diabetes mellitus: Status: Acute Plan 62M PMH CAD s/p CABG, paroxysmal afib, COPD, DM2, paranoid schizophrenia, hypothyroid, [facility] presented with abdominal pain, distension, hypoxia. 1. Possible upper GI bleed (self-limiting) -tube feedings on hold due to rhonchi, will obtain nutrition consultation for bolus feedings will plan to discharge back to [facility] 2. Bilateral patchy infiltrates - stable oxygenation has chronic infiltrates will DC IV vancomycin, continue IV Zosyn day 4 for 1 more day and transition to by mouth Augmentin to cover for aspiration pneumonia , transient leukocytosis resolved 3.Paroxysmal afib -Metoprolol/amiodarone PO 400 mg bid x 2 weeks(end 03/18)...200mg daily(start 03/19) -Eliquis 5 mg b.i.d. 4. Dm II -acceptable control on basal insulin/lispro correctional scale -adjust as indicated -add back orals after returns to [facility] 6.Paranoid schizophrenia -clozaril 50 mg at bedtime further medication adjustment as per PCP in [facility] 7. DVT prophylaxis with compression Boots DNR DNI. Requires ongoing hospitalization for nutrition adjustment and IV antibiotics, possible discharge to [facility] in 24 hours Time Spent With Patient Time: Total time managing care of this patient today ____ minutes. Quality Stroke Does the patient have a stroke diagnosis?: No VTE Prior VTE?: No VTE Risk Level:: Medical - moderate - high VTE Device Contraindication: Treatment Not Indicated VTE Drug Contraindication: N/A - Med Ordered
[2023-03-16 17:20] LABS: Glucose, Whole Blood 148 mg/dL (60-115)
[2023-03-16 18:39] LABS: Vancomycin Random 19.1 mcg/mL (15-20)
[2023-03-16 20:00] VITALS: BP 129/67; PULSE 90; RESP 15; TEMP 36.9; O2SAT 94
[2023-03-16] MEDS: cloZAPine 25 MG TABLET 50 MG PO (22:45)
[2023-03-16 23:54] LABS: Glucose, Whole Blood 147 mg/dL (60-115)
[2023-03-17] VITALS: BP 156/70; PULSE 73; RESP 18; TEMP 37.1; O2SAT 97
[2023-03-17 03:49] VITALS: BP 135/71; PULSE 82; RESP 20; TEMP 36.6; O2SAT 96
[2023-03-17] MEDS: Piperacillin Sodium/Tazobactam 3.375 GM in 0.9 % Sodium Chloride 50 ML IV ×2 (05:01→12:09)
[2023-03-17] MEDS: Levothyroxine Sodium 100 MCG/5 ML VIAL 37.5 MCG IVPUSH (05:07)
[2023-03-17 06:05] LABS: Neut%MD 57.9 %
[2023-03-17 06:15] LABS: Creatinine Clr Calc Pharmacy 95.8; Estimated Glomerular Filt Rate > 60
[2023-03-17] MEDS: Insulin Lispro 100 UNIT/ML 3 ML VIAL SUBCUT ×2 (06:23→12:23)
[2023-03-17 06:27] LABS: Glucose, Whole Blood 228 mg/dL (60-115)
[2023-03-17 07:45] VITALS: BP 117/61; PULSE 79; RESP 20; TEMP 36.7; O2SAT 99
[2023-03-17] MEDS: Amiodarone HCL 200 MG TABLET 400 MG G-TUBE (10:26)
[2023-03-17] MEDS: polyethylene glycoL 3350 17 GM POWD.PACK G-TUBE (10:26)
[2023-03-17] MEDS: 0.9 % Sodium Chloride Flush 3 ML SYRINGE IVFLUSH (10:26)
--- NOTE | 2023-03-17 11:16 | MHC.CLN ---
F/U TF RE-STARTED BOLUS FEED REVIEWED LABS PT RECEIVING TUBE FEED GLUCERNA BOLUS 375ML Q 4 HRS WITH 240ML FWF Q 6 HRS PROVIDES 2250KCALS (28KCALS/KG), 94G PROTEIN (1.2G/KG), 2879ML TOTAL FROM FORMULA AND FLUSHES (36ML/KG) MONITOR TOLERANCE, RESIDUALS AND LYTES
[2023-03-17 11:22] VITALS: BP 115/64; PULSE 74; RESP 20; TEMP 36.8; O2SAT 99
--- NOTE | 2023-03-17 11:44 | P.DS_ITS ---
DS: Providers Provider Date of Service: 03/17/23 Date of admission: 02/20/23 06:16 Primary care physician: Lamonte Jenkins DO Consults: 02/20/23 06:23 Consult to Gastroenterology Stat Consulting Provider: Callie Gill Reason for consultation: Sigmoid volvulus Has provider been notified: Yes Consult to General Surgery Stat Consulting Provider: [facility] [place] [facility] Reason for consultation: Sigmoid volvulus Has provider been notified: Yes 02/28/23 15:00 Consult to Cardiology Routine Consulting Provider: [facility] [place] [facility] Reason for consultation: Afib rvr, post colectomy , eval and rec 03/02/23 17:08 Consult to Infectious Diseases Routine Consulting Provider: [facility] [place] [facility] Reason for consultation: CANDIDIASIS 03/02/23 18:29 Consult to Critical Care Routine Consulting Provider: Kevin Rodriguez Reason for consultation: soft bps, sepsis 03/03/23 10:35 Consult to Nephrology Routine Consulting Provider: Desean Saini Reason for consultation: Metabolic acidosis, hypernatremia for eval and rec. 03/06/23 04:09 Consult to General Surgery Routine Consulting Provider: [facility] [place] [facility] Reason for consultation: bleeding around ostomy site DS: Diagnosis Discharge Diagnosis (1) UGIB (upper gastrointestinal bleed): Status: Acute (2) Pneumonia: Status: Acute (3) Type 2 diabetes mellitus: Status: Acute DS: Summary Hospital Course Hospital Course: History of presenting illness: Date of Service: 02/20/23 Chief Complaint: abd pain 62M PMH CAD s/p CABG, paroxysmal afib, COPD, DM2, paranoid schizophrenia, hypothyroid, from [facility] presented with abdominal pain, distension, hypoxia. patient unable to provide history. was brought in by ambulance after noticing abdominal distension by staff. hypoxia with o2 sats in the high 80s, in ED noted to have sigmoid volvulus, was taken to OR for sigmoidoscopy, detorsion performed. Hospital course: 62M PMH CAD s/p CABG, paroxysmal afib, COPD, DM2, paranoid schizophrenia, hypothyroid, from [facility] presented with abdominal pain, distension, hypoxia patient taken to OR with a diagnosis of sigmoid volvulus, underwent torsion and placement of colostomy postprocedure patient noted to have multiple medical issues with prolonged hospitalization. Toxic metabolic encephalopathy post surgery noted to have have confusion likely related to high dose of clozapine ,dose was reduced to 50 mg, had normal TSH, electrolytes ,there was no evidence of neuro deficit , patient was noted to have significant dysphagia with no gag reflex therefore was made NPO by speech therapy recommendation, and subsequently underwent G-tube placement by Dr. Mensah post G-tube placement patient was placed on continuous G-tube feedings but due to concern for aspiration with coughing , feedings have been changed to bolus feeds, patient blood sugars are stable therefore placed back on metformin recommend to monitor blood sugars closely and continue G-tube care. Ostomy is functioning fine patient was noted to have couple episodes of bleeding in the ostomy therefore Eliquis was temporarily held, since no bleeding noted in last few days patient has been placed back on Eliquis, recommend to hold aspirin for 1 week and if there is no bleeding recommend to resume aspirin. Metabolic acidosis w Anion gap, treated with IV soda bicarb drip, Gap closed, bicarb normalized, acidosis Likely 2/2 Ostomy output, dehydration, fasting status. Acute hypernatremia due to dehydration normalized with IV D5W Moderate protein malnutrition continue feeding tube. paroxysmal afib with rvr? better controlled on PO Metoprolol and amiodarone PO 400 mg bid x 2 weeks? is started on 03/04, end date 830th than 200mg daily. Sepsis 2/2 Pneumonia and Candidal UTI, patient finished course of IV antibiotics, blood cultures negative. Hypokalemia resolved CAD continue statins and metoprolol through G tube aspirin held due to bleeding noted in colostomy bag, resume aspirin if no bleeding noted on Eliquis. hypothryoid continue levothyroxine through feeding tube. paranoid schizophrenia no behavioral issues noted in-house continue Clozaril dose reduced. Time Spent with Patient Time attestation: Total time managing care of this patient today ____ minutes. Discharge coordination time: Greater than 30 minutes Quality: Safe Use of Opioids Does Pt have an Active Cancer Diagnosis on the Problem List?: No Quality: Stroke Does the patient have a stroke diagnosis?: No Physical Exam Vital Signs: Vital Signs: Last Vital Signs Temp 98.2 F 03/17/23 11:22 Pulse 74 03/17/23 11:22 Resp 20 03/17/23 11:22 BP 115/64 03/17/23 11:22 Pulse Ox 99 03/17/23 11:22 O2 Del Method Room Air 03/17/23 11:22 O2 Flow Rate 2 03/07/23 08:00 Oxygen Flow Rate 2 02/23/23 05:00 BMI result Body Mass Index 24.7 Const: Other: Constitutional :?s omnolent arousable , not in distress Neck : Normal insp ection, Supple Car diovascular : irre gular irregular Re spiratory : good b ilateral air entry ,?no resp distress Gastrointestinal: ? soft,? bowel ramsey nds audible , Non tender, Ostomy bag filled with light brown stool, no b lood Skin : Warm, Dry Extremities no lower extremity e casey Neurological : No focal deficit ,speech clear DS: Data Data Completed and Pending Completed studies during hospitalization [Text1]: Pending at discharge 02/23/23 12:54 Surgical [PTH] Routine Procedures Repair Face Skin, External Approach (12/27/22) Labs on day of discharge: Laboratory Results - last 24 hr 03/16/23 03/16/23 03/16/23 17:16 18:11 23:43 Absolute Neuts (auto) Creatinine Estim Creat Clear Calc Estimated GFR POC Glucose 148 H 147 H Random Vancomycin 19.1 03/17/23 03/17/23 03/17/23 05:38 05:38 06:22 Absolute Neuts (auto) 4.0 Creatinine 0.84 Estim Creat Clear Calc 95.8 Estimated GFR > 60 POC Glucose 228 H Random Vancomycin Preliminary micro results at discharge 03/13/23 05:48 Blood Culture - Preliminary Blood - Venous No growth after 48 hours. 03/13/23 05:48 Blood Culture - Preliminary Blood - Venous No growth after 48 hours. Discharge Plan Discharge Anticipated Discharge Date/Time: 03/17/23 10:38 Patient Disposition: Xfer SNF Discharge Diagnosis: Paroxysmal atrial fibrillation with RVR Pneumonia Referrals: Tim Mensah MD [Physician] - 1 Week Lamonte Jenkins DO [Primary Care Provider] - 1 Week Discharge Medications: New amiodarone 200 mg Tablet 400 mg G-tube BID Qty: 60 0RF Rx Instructions: Take amiodarone 400 mg (2 tablets) twice daily through 03/18 Then take amiodarone 200 mg 1 tablet daily starting 03/19 clozapine 25 mg Tablet 50 mg PO BEDTIME Qty: 30 0RF Prilosec 10 mg susp,delayed release for recon 20 mg feeding tube BID Qty: 30 0RF Continued lactulose 10 gram/15 mL solution 30 ml PO DAILY insulin glargine [Lantus Solostar U-100 Insulin] 100 unit/mL (3 mL) insulin pen 20 unit subcut BEDTIME Eliquis 5 mg Tablet 5 mg PO BID Qty: 60 0RF sennosides [senna] 8.6 mg Tablet 8.6 mg PO DAILY PRN (Reason: Constipation) nicotine 7 mg/24 hr Patch 24 Hour 1 patch TRANSDERMAL Q24H PRN (Reason: Smoking Cessation) zinc oxide Cream 1 appl TOPICAL QSHIFT metoprolol tartrate 25 mg tablet 12.5 mg PO BID Protocol: Hold for SBP/HR < HOLD for SBP < : 90 HOLD for HR < : 60 Changed atorvastatin 80 mg tablet 80 mg feeding tube BEDTIME Qty: 30 0RF levothyroxine 75 mcg tablet 75 mcg feeding tube DAILY@0600 Qty: 30 0RF ferrous sulfate 325 mg (65 mg iron) Tablet 325 mg feeding tube DAILY@1700 Qty: 20 0RF metformin 500 mg tablet 500 mg feeding tube BID Qty: 60 0RF Discontinued pantoprazole 40 mg tablet,delayed release (DR/EC) 1 tab PO BID@0630,1630 aspirin 81 mg Tablet,Chewable 81 mg PO DAILY clozapine 200 mg tablet 1 tab PO BEDTIME omega [id number]-urd-tqj-fish oil [Fish Oil] 1,000 mg (120 mg-180 mg) Capsule 1 cap PO BID Tradjenta 5 mg tablet 1 tab PO DAILY Invokana 100 mg tablet 1 tab PO DAILY nystatin 100,000 unit/gram Powder 1 appl TOPICAL BID Rx Instructions: apply to groin Discharge Orders: Discharge Order (Routine); Ordered 03/17/23 Ordered By: Alejandrina Arguello Diet: feeding bolus Activity on Discharge: As tolerated Stand Alone Forms: Patient Portal Discharge page Care Plan Goals: Continue bolus feedings as recommended, monitor blood sugar and adjust oral hypoglycemic, all medications through feeding tube Colostomy care Take amiodarone as directed Take all home medications as prescribed. Health Concerns: Diabetes mellitus/hyperlipidemia Plan of Treatment: Outpatient follow-up with primary care physician Assessment: As above
[2023-03-17 11:45] LABS: Glucose, Whole Blood 196 mg/dL (60-115)
--- NOTE | 2023-03-17 13:18 | MHC.CM.PN ---
DP: PT HAS BEEN MEDICALLY CLEARED FOR DC BACK TO [facility]. [facility] NOTIFIED. RN AWARE. IMM ADDRESSED AND WHITE COPY SENT TO [facility]. BLS TRANSPORT BOOKED VIA [facility] FOR 2 PM.
== END 2023-03-17 14:44 | disposition skilled nursing facility (03) | DRG 853 ==
LOC: HO.ED 05:23 → HO.EDOVER 06:18 → HO.S3 07:30 → HO.IMC 12:55 → HO.ICU 02-23 15:12 → HO.IMC 02-24 14:39
PROVIDERS: Internal Medicine; Internal Medicine Gastroenterology; Internal Medicine Pulmonary Disease; Registered Nurse Community Health; Student in an Organized Health Care Education/Training Program; Surgery; Admitting Provider Student in an Organized Health Care Education/Training Program; Emergency Provider Emergency Medicine; PCP Hospitalist; Visit Provider Hospitalist
PROC: 0DJD8ZZ Inspection of Lower Intestinal Tract, Via Natural or Artificial Opening Endoscopic (ICD-10-PCS; CPT 45378; principal; 2023-02-20 04:30)
PROC: 0D1N0Z4 Bypass Sigmoid Colon to Cutaneous, Open Approach (ICD-10-PCS; principal; 2023-02-23 10:30)
PROC: 0DH60UZ Insertion of Feeding Device into Stomach, Open Approach (ICD-10-PCS; principal; 2023-03-11 08:50)
DX: A41.9 Sepsis, unspecified organism (principal); G92.8 Other toxic encephalopathy; J69.0 Pneumonitis due to inhalation of food and vomit; K56.2 Volvulus; J96.01 Acute respiratory failure with hypoxia; F20.0 Paranoid schizophrenia; E87.0 Hyperosmolality and hypernatremia; E87.20 Acidosis, unspecified; E44.0 Moderate protein-calorie malnutrition; K94.01 Colostomy hemorrhage; K92.2 Gastrointestinal hemorrhage, unspecified; I25.10 Atherosclerotic heart disease of native coronary artery without angina pectoris; J44.9 Chronic obstructive pulmonary disease, unspecified; F03.90 Unspecified dementia, unspecified severity, without behavioral disturbance, psychotic disturbance, mood disturbance, and anxiety; E03.9 Hypothyroidism, unspecified; E11.9 Type 2 diabetes mellitus without complications; K64.9 Unspecified hemorrhoids; I48.0 Paroxysmal atrial fibrillation; K80.20 Calculus of gallbladder without cholecystitis without obstruction; R65.20 Severe sepsis without septic shock; E88.09 Other disorders of plasma-protein metabolism, not elsewhere classified; Z68.24 Body mass index [BMI] 24.0-24.9, adult; E87.6 Hypokalemia; E83.39 Other disorders of phosphorus metabolism; K59.00 Constipation, unspecified; R13.10 Dysphagia, unspecified; T42.4X5A Adverse effect of benzodiazepines, initial encounter; E86.0 Dehydration; Z87.891 Personal history of nicotine dependence; Z95.1 Presence of aortocoronary bypass graft; Z79.01 Long term (current) use of anticoagulants; Z79.4 Long term (current) use of insulin; Z79.890 Hormone replacement therapy; Z79.899 Other long term (current) drug therapy
CPT/HCPCS: 36415; 36600; 71045; 74018; 74176; 74177; 80048; 80053; 80076; 80202; 81001; 82010; 82040; 82272; 82565; 82803; 82947; 83605; 83615; 83735; 83880; 84100; 84443; 84484; 85014; 85018; 85025; 85027; 85048; 85379; 85610; 86850; 86900; 86901; 86923; 87040; 87086; 87088; 88304; 88307; 92526; 92610; 92950; 93005; 94640; 97162; 99285; C1758; J0131; J0282; J0283; J0295; J0330; J0637; J0690; J1160; J1170; J1643; J1650; J2250; J2371; J2405; J2543; J2795; J3010; J3370; J3371; J3475; P9016; P9047; Q9967

== ENCOUNTER → 2023-02-20 02:01 | Outpatient (BNV) | payer MEDICARE, MEDICAID, SELFPAY | PROVIDERS: Admitting Provider Student in an Organized Health Care Education/Training Program; Emergency Provider Emergency Medicine; Visit Provider Internal Medicine | DX: R00.0 Tachycardia, unspecified (principal) | CPT/HCPCS: 93010 ==

== ENCOUNTER 2023-02-20 06:16 | Outpatient (BNV) | payer MEDICARE, MEDICAID, SELFPAY | END 2023-02-28 14:26 | PROVIDERS: Admitting Provider Student in an Organized Health Care Education/Training Program; Emergency Provider Emergency Medicine; PCP Hospitalist; Visit Provider Internal Medicine Cardiovascular Disease | DX: I48.91 Unspecified atrial fibrillation (principal); R94.31 Abnormal electrocardiogram [ECG] [EKG] | CPT/HCPCS: 93010 ==

== ENCOUNTER → 2023-02-20 06:16 | Outpatient (BNV) | payer MEDICARE, MEDICAID, SELFPAY | PROVIDERS: Admitting Provider Student in an Organized Health Care Education/Training Program; Emergency Provider Emergency Medicine; PCP Hospitalist; Visit Provider Internal Medicine Pulmonary Disease | DX: E83.39 Other disorders of phosphorus metabolism (principal); E88.09 Other disorders of plasma-protein metabolism, not elsewhere classified; E86.1 Hypovolemia; T42.4X5A Adverse effect of benzodiazepines, initial encounter | CPT/HCPCS: 99232; 99499 ==

== ENCOUNTER → 2023-02-20 06:16 | Outpatient (BNV) | payer MEDICARE, MEDICAID, SELFPAY | PROVIDERS: Admitting Provider Student in an Organized Health Care Education/Training Program; Emergency Provider Emergency Medicine; Visit Provider Physician Assistant Surgical | DX: R13.10 Dysphagia, unspecified (principal); Y84.4 Aspiration of fluid as the cause of abnormal reaction of the patient, or of later complication, without mention of misadventure at the time of the procedure | CPT/HCPCS: 43832; 44143; 99024; 99222; 99232 ==

== ENCOUNTER → 2023-02-20 06:16 | Outpatient (BNV) | payer MEDICARE, MEDICAID, SELFPAY | PROVIDERS: Admitting Provider Student in an Organized Health Care Education/Training Program; Emergency Provider Emergency Medicine; Visit Provider Internal Medicine | DX: R13.10 Dysphagia, unspecified (principal); I48.0 Paroxysmal atrial fibrillation; E11.9 Type 2 diabetes mellitus without complications | CPT/HCPCS: 99223; 99232; 99233; 99239; 99499 ==

== ENCOUNTER → 2023-02-20 06:16 | Outpatient (BNV) | payer MEDICARE, MEDICAID, SELFPAY | PROVIDERS: Admitting Provider Student in an Organized Health Care Education/Training Program; Emergency Provider Emergency Medicine; PCP Hospitalist; Visit Provider Internal Medicine Cardiovascular Disease | DX: I48.91 Unspecified atrial fibrillation (principal) | CPT/HCPCS: 99222; 99233 ==

== ENCOUNTER → 2023-02-20 06:16 | Outpatient (BNV) | payer MEDICARE, MEDICAID, SELFPAY | PROVIDERS: Admitting Provider Student in an Organized Health Care Education/Training Program; Emergency Provider Emergency Medicine; PCP Hospitalist; Visit Provider Internal Medicine | DX: J18.9 Pneumonia, unspecified organism (principal); A41.9 Sepsis, unspecified organism; R65.20 Severe sepsis without septic shock; K56.2 Volvulus | CPT/HCPCS: 99222 ==

== ENCOUNTER → 2023-02-20 06:16 | Outpatient (BNV) | payer MEDICARE, MEDICAID, SELFPAY | PROVIDERS: Admitting Provider Student in an Organized Health Care Education/Training Program; Emergency Provider Emergency Medicine; PCP Hospitalist; Visit Provider Internal Medicine Gastroenterology | DX: K56.2 Volvulus (principal) | CPT/HCPCS: 45393; 99232 ==

== ENCOUNTER 2023-03-20 01:56 | Inpatient (IN) | payer MEDICARE, MEDICAID, SELFPAY ==
[2023-03-20] VITALS (40 sets, daily range): BP systolic 58–136; BP diastolic 29–68; PULSE 54–104; RESP 16–24; TEMP 33.9–39.5; O2SAT 95–100; BMI 24.8; BMI 25.0; BMI 23.6
--- NOTE | ~2023-03-20 | CT_ITS ---
EXAMINATION: CT CHEST WITHOUT CONTRAST CLINICAL INFORMATION: Questionable aspiration COMPARISON: None available. TECHNIQUE: Multidetector volumetric CT imaging of the chest was done. Axial MIP volume rendering provided. Sagittal and coronal reformatted images were obtained. This CT examination was performed using dose optimization techniques as appropriate, variously including the following: *Automated exposure control *Adjustment of mA and/or kV according to patient size (this includes techniques or standardized protocols for targeted exams where dose is matched to indication/reason for exam; i.e. extremities or head) *Use of iterative reconstruction technique DLP: 373.55 mGy-cm FINDINGS: SELLING UNDERWRITER: Patient is status post median sternotomy, intubated LUNGS: There are areas of dense consolidation in the right lower lobe and left lower lobe as well as scattered patchy airspace disease seen through the right upper lobe and left upper lobe. Findings suggestive for pneumonia. Patient is intubated with well-positioned endotracheal tube MEDIASTINUM: There is mild mediastinal lymphadenopathy and no hilar lymphadenopathy seen. Patient is status post CABG. CORONARY ARTERY CALCIFICATION: Patient is status post CABG and there are no calcified coronary arteries. PLEURA: There is no pleural effusion. No pleural mass or thickening. AXILLA: No lymphadenopathy. UPPER ABDOMEN: There is cholelithiasis. OSSEOUS STRUCTURES: Patient is status post median sternotomy. There is mild wedge-shaped deformity of T3 vertebral body indeterminate age. There is diffuse osteopenia. CT/CT chest wo IV con IMPRESSION: 1. Bilateral lower lobe pneumonia and patchy airspace disease in the right upper lobe and left upper lobe. 2. Cholelithiasis. 3. Mild wedge-shaped deformity of T3 vertebral body, indeterminate age. Fleischner guidelines were followed.
--- NOTE | ~2023-03-20 | CT_ITS ---
EXAMINATION: CT ABDOMEN AND PELVIS WITHOUT CONTRAST CLINICAL INFORMATION: Abdominal pain. Postoperative. COMPARISON: 03/13/2023 TECHNIQUE: Multidetector volumetric imaging was performed from the superior aspect of the liver through the pubic symphysis. Sagittal and coronal reformatted images were obtained on the technologist's workstation. This CT examination was performed using dose optimization techniques as appropriate, variously including the following: *Automated exposure control *Adjustment of mA and/or kV according to patient size (this includes techniques or standardized protocols for targeted exams where dose is matched to indication/reason for exam; i.e. extremities or head) *Use of iterative reconstruction technique DLP: 849 mGy-cm FINDINGS: LUNG BASES: There are bilateral lower lobe infiltrates. There is right lower lobe bronchial opacification. LIVER, GALLBLADDER, AND BILIARY TREE: The liver is normal in size, shape, and attenuation. No focal hepatic lesion or biliary ductal dilatation is present. A single gallstone is noted. PANCREAS: Unremarkable. SPLEEN: Unremarkable. ADRENAL GLANDS: Unremarkable. KIDNEYS AND URETERS: The kidneys are normal in size, shape, and attenuation. No hydronephrosis, hydroureter, or calculi seen. No perinephric stranding. BLADDER: The bladder is trabeculated and thickened. GASTROINTESTINAL TRACT: A left colostomy is noted. There is retained stool. Prominent fluid-filled small bowel loops are noted. A G-tube is in place. The cecum is in the upper abdomen. The appendix is visualized and is within normal limits. There is minimal residual intraperitoneal air. ABDOMINAL WALL: There is a heterogeneous collection along the lower midline abdominal wall musculature measuring up to 5 cm with mild surrounding infiltration. There has been a prior umbilical region hernia repair. LYMPH NODES: Normal. VASCULAR: There is mild atherosclerotic plaque of the abdominal aorta. PELVIC VISCERA: Unremarkable. OSSEOUS STRUCTURES: Unremarkable. CT/CT abdomen pelvis wo IV con IMPRESSION: 1. Bilateral lower lobe infiltrates. Suspect pneumonia. There is right lower lobe bronchial opacification. 2. Left colostomy. 3. Prominent small bowel loops containing fluid possibly related to an ileus. 4. Lower abdominal midline 5 cm collection with some associated gas possibly postoperative hemorrhage. Infection or developing infection is a consideration. A similar finding was present previously. Fleischner guidelines were followed.
--- NOTE | ~2023-03-20 | XR_ITS ---
EXAMINATION: XR CHEST CLINICAL INFORMATION: Shortness of breath. COMPARISON: 03/13/2023 TECHNIQUE: Frontal view of the chest was obtained. FINDINGS: The cardiomediastinal silhouette is stable. There has been a previous median sternotomy. There is diffuse right-sided increased interstitial markings/coarsening. There is similar increase markings/interstitial coarsening at the left lung base. No focal consolidation is seen. There is no pleural effusion. The bony structures are unremarkable. The soft tissues are unremarkable. XR/XR chest 1V IMPRESSION: Right-sided diffuse increased markings/coarsening with similar change at the left lung base. Similar findings were present previously and possibly representing residual infiltrates.
--- NOTE | ~2023-03-20 | CT_ITS ---
EXAMINATION: CT HEAD WITHOUT CONTRAST CLINICAL INFORMATION: Fixed pupils COMPARISON: Previous dated 12/27/2022 TECHNIQUE: Contiguous axial imaging was performed from the skull base to vertex without intravenous administration of contrast. This CT examination was performed using dose optimization techniques as appropriate, variously including the following: *Automated exposure control *Adjustment of mA and/or kV according to patient size (this includes techniques or standardized protocols for targeted exams where dose is matched to indication/reason for exam; i.e. extremities or head) *Use of iterative reconstruction technique DLP: 694 mGy-cm FINDINGS: There is no midline shift. There is no mass effect. There is no hemorrhage. The basal cisterns appear patent. The posterior fossa is grossly within normal limits. No extra-axial collection. The deviation of the trachea to the right of midline by the tongue structure versus other is noted. Areas of old infarct are noted. Atrophy is seen. The sinuses are grossly clear and the bone windows. CT/CT head/brain wo IV con IMPRESSION: No acute finding. Areas of old infarct and white matter ischemic change are noted. There is no midline shift. There is no mass effect. There is no hemorrhage. Other findings are as noted above.
--- NOTE | ~2023-03-20 | XR_ITS ---
EXAMINATION: XR CHEST CLINICAL INFORMATION: Endotracheal tube placement. COMPARISON: Previous of the same day. TECHNIQUE: Frontal view of the chest was obtained. FINDINGS: Low lung volumes limits evaluation. There is an endotracheal tube in adequate position above the ganga. A right central line extends to the lower SVC. There is patchy right [id number]-[id number] lung field infiltrates. There are increased markings at the left base. The bony structures and soft tissues are unremarkable. XR/XR chest 1V IMPRESSION: Low lung volumes limits evaluation. 1. Tracheal tube and right central line in place. 2. Patchy right wbo-vq-hlhev lung field changes. Increased markings at the left base.
--- NOTE | ~2023-03-20 | XR_ITS ---
EXAMINATION: XR CHEST CLINICAL INFORMATION: Fever. Possible aspiration pneumonia. COMPARISON: Previous chest x-ray and chest CT 03/20/2023 TECHNIQUE: Frontal view of the chest was obtained. FINDINGS: The endotracheal tube and right jugular line have been removed. There is improving bilateral airspace disease suggestive of improving pneumonia. There is no pleural effusion or pneumothorax. Median sternotomy wires. Degenerative changes of the spine. XR/XR chest 1V IMPRESSION: Improving bilateral airspace disease probably representing improving pneumonia.
--- NOTE | 2023-03-20 02:17 | ECG_ITS ---
Test Reason : SEPSIS Blood Pressure : / mmHG Vent. Rate : 098 BPM Atrial Rate : 098 BPM P-R Int : 218 ms QRS Dur : 094 ms QT Int : 366 ms P-R-T Axes : 052 043 060 degrees QTc Int : 467 ms Sinus rhythm with 1st degree A-V block ST & T wave abnormality, consider anterolateral ischemia Abnormal ECG When compared with ECG of 03-MAR-2023 12:22, Sinus rhythm has replaced Atrial fibrillation Referred By: Suman Friedman Electronically Signed By:RICKI YUEN
--- NOTE | 2023-03-20 02:17 | ED.GENADULT ---
HPI - General Adult General Chief complaint: General Medical Stated complaint: Weakness Time Seen by Provider: 03/20/23 02:15 Source: patient Mode of arrival: EMS Limitations: altered mental status History of Present Illness HPI narrative: 62M PMH CAD s/p CABG, paroxysmal afib, COPD, DM2, paranoid schizophrenia, hypothyroid, just discharged on 03/17 after 3 weeks of admission for sigmoid volvulus and sepsis came back from [facility] long term is lethargic and shortness of breath saturating 70% at room air patient noted to have fever 103.1 on arrival patient denied significant complaint Related Data Home Medications Medication Instructions Recorded Confirmed insulin glargine 100 unit/mL (3 20 unit subcut BEDTIME 12/13/21 02/20/23 mL) subcutaneous pen (Lantus Solostar U-100 Insulin) lactulose 10 gram/15 mL oral 30 ml PO DAILY 12/13/21 02/20/23 solution nicotine 7 mg/24 hr daily 1 patch transdermal Q24H PRN 12/27/22 02/20/23 transdermal patch Smoking Cessation sennosides 8.6 mg tablet (senna) 8.6 mg PO DAILY PRN Constipation 12/27/22 02/20/23 metoprolol tartrate 25 mg tablet 12.5 mg PO BID 02/20/23 02/20/23 zinc oxide 1 appl topical QSHIFT 02/20/23 02/20/23 Previous Rx's Medication Instructions Recorded apixaban 5 mg tablet (Eliquis) 5 mg PO BID #60 tabs 12/16/21 amiodarone 200 mg tablet 400 mg G-tube BID #60 tabs 03/17/23 atorvastatin 80 mg tablet 80 mg feeding tube BEDTIME #30 tabs 03/17/23 clozapine 25 mg tablet 50 mg PO BEDTIME #30 tabs 03/17/23 ferrous sulfate 325 mg (65 mg 325 mg feeding tube DAILY@1700 #20 03/17/23 iron) tablet tabs levothyroxine 75 mcg tablet 75 mcg feeding tube DAILY@0600 #30 03/17/23 tabs metformin 500 mg tablet 500 mg feeding tube BID #60 tabs 03/17/23 omeprazole magnesium 10 mg oral 20 mg feeding tube BID #30 ea 03/17/23 suspension,delayed release (Prilosec) Allergies Allergy/AdvReac Type Severity Reaction Status Date / Time No Known Allergies Allergy Unverified 04/05/20 19:36 [No Known Allergies*] Review of Systems Review of Systems: Yes all other systems are reviewed and are negative [facility] Past Medical History Medical History Altered mental status Amblyopia, left eye Anemia Atherosclerotic heart disease of havasupai coronary artery without angina pectoris Boutonniere deformity of finger Candidal urinary tract infection Cognitive impairment COPD (chronic obstructive pulmonary disease) COVID-19 Dementia Drug induced subacute dyskinesia Dysphagia Encephalopathy Essential (primary) hypertension Exotropia, alternating, with A pattern Hyperlipidemia Hypermetropia of both eyes Hypothyroidism Palsy (spasm) of conjugate gaze Paranoid schizophrenia Personal history of transient ischemic attack (TIA), and cerebral infarction without residual deficits Ptosis of right eyelid Type 2 diabetes mellitus Surgical History Presence of aortocoronary bypass graft Social History Social History Household Members: Unknown / Unable to assess Household Members Other:: [facility] Housing: Other Housing Other:: [facility] Do you presently have visiting nurse or other home services: No Unable to assess alcohol history related to: Unknown Patient Tobacco Use Status: Former Tobacco user Tobacco use type: Cigarette Years Smoked: SURAJ Smoked in Last 30 Days: No Use of substances other than those prescribed or required for medical reasons: No Advance Directives: Yes Advance Directives on File: Yes Advance Directives Date on File: 12/14/21 service: No Current occupational status: disabled Physical Exam ED Vital Signs: Vital Signs - 24 hr 03/20/23 02:06 03/20/23 02:09 03/20/23 03:17 Temperature 103.1 F H 102.6 F H Pulse Rate 94 97 97 Respiratory Rate 16 16 24 H Blood Pressure 99/55 L 99/55 L 83/48 L Pulse Oximetry 95 95 95 Oxygen Delivery Method Nasal Cannula Nasal Cannula Nasal Cannula Oxygen Flow Rate 2 2 03/20/23 04:07 Temperature Pulse Rate 78 Respiratory Rate 17 Blood Pressure 85/38 L Pulse Oximetry 99 Oxygen Delivery Method Room Air Oxygen Flow Rate BMI result Body Mass Index 24.8 Appearance: Lethargic No acute distress. Eyes: PERRLA, No Nystagmus ENT: Pharynx normal. Oral Mucosa moist Neck: Normal inspection. Neck supple. CVS: Normal heart rate and rhythm. Pulses normal. Respiratory: No respiratory distress. Equal air entry bilateral, no wheezing/rales/rhonchi bilateral conducted sounds Abdomen: Soft and nontender. Bowel sounds are present, no mass palpable, no CVA tenderness, G-tube in place Skin: Skin warm and dry. Normal skin color. Normal skin turgor. Extremities: No lower extremity edema. No calf tenderness Neuro: Lethargic axo 1-2 No motor deficit. No sensory deficit.No cerebellar signs , cranial nerves II-XII intact Medications Administered Generic Name Dose Route Start Last Admin Trade Name Freq PRN Reason Stop Dose Admin Norepinephrine Bitartrate 8 mg in 250 mls @ 0 mls/hr 03/20/23 04:30 03/20/23 05:59 Levophed IV 0.65 mcg/kg/min .Q0M COLIN 85.02 mls/hr Titration Protocol Per Protocol Propofol 1,000 mg in 100 mls @ 0 mls/hr 03/20/23 06:00 03/20/23 06:07 Diprivan IVCONT 40 mcg/kg/min .Q0M COLIN 16.9 mls/hr Administration Protocol Per Protocol Discontinued Medications Generic Name Dose Route Start Last Admin Trade Name Freq PRN Reason Stop Dose Admin Acetaminophen 975 mg 03/20/23 02:23 03/20/23 02:33 Acetaminophen 325 Mg Tablet PO 03/20/23 02:24 975 mg ONCE ONE Administration Sodium Chloride 1,000 mls @ 999 mls/hr 03/20/23 02:17 03/20/23 05:26 Ns IV 03/20/23 03:17 Infused .Q1H1M ONE Infusion Ceftriaxone Sodium 1 gm/ 50 mls @ 100 mls/hr 03/20/23 02:50 03/20/23 04:15 Sodium Chloride IV 03/20/23 03:19 Infused ONCE ONE Infusion Sodium Chloride 2,000 mls @ 2,000 mls/hr 03/20/23 03:23 03/20/23 05:26 Ns IV 03/20/23 04:22 Infused .Q1H STA Infusion Piperacillin Sod/Tazobactam 50 mls @ 100 mls/hr 03/20/23 03:25 03/20/23 04:05 Sod 3.375 gm/ Sodium Chloride IV 03/20/23 03:54 Infused ONCE ONE Infusion Ibuprofen 600 mg 03/20/23 02:23 03/20/23 02:34 Ibuprofen 600 Mg Tablet PO 03/20/23 02:24 600 mg ONCE ONE Administration Ketorolac Tromethamine 30 mg 03/20/23 03:25 03/20/23 03:32 Ketorolac Tromethamine 30 Mg/Ml Vial IVPUSH 03/20/23 03:26 30 mg ONCE ONE Administration Propofol 70 mg 03/20/23 05:59 03/20/23 06:07 Propofol 200 Mg/20 Ml Vial IVPUSH 03/20/23 06:00 70 mg ONCE ONE Administration Sodium Bicarbonate 50 meq 03/20/23 06:15 03/20/23 06:07 Sodium Bicarbonate 8.4% 50 Meq/50 Ml Vial IVPUSH 03/20/23 06:16 50 meq ONCE ONE Administration Medical Decision Making Medical Decision Making [facility] Narrative: Patient with high fever with leukocytosis and lactic acidosis with hypotension with bilateral pneumonia received IV fluids 30 cc per kg body weight and IV antibiotics is still continued to have low blood pressure started on Levophed drip. 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 03/20/23 02:52 03/20/23 02:52 Labs: Lab Results 03/20/23 03/20/23 03/20/23 Range/Units 02:38 02:52 02:52 WBC 13.3 H (4.8-10.8) X10*3/uL RBC 4.07 L (4.60-5.80) X10*6/uL Hgb 11.2 L (14.0-18.0) g/dl Hct 34.5 L (42.0-52.0) % MCV 84.8 (80.0-98.0) fL MCH 27.5 (27.0-33.0) pg MCHC 32.5 (31.0-36.0) g/dl RDW 16.1 H (11.0-16.0) % Plt Count 264 (160-400) X10*3/uL MPV 9.5 (9.4-12.4) fL Immature Gran % (Auto) 0.5 H (0.0-0.4) % Neut % (Auto) 81.2 H (45-73) % Lymph % (Auto) 11.9 L (20-40) % [place] % (Auto) 6.0 (2-11) % Eos % (Auto) 0.1 (0-4) % Baso % (Auto) 0.3 (0-2) % Lymph # (Auto) 1.6 (1.2-4.9) X10*3/uL [place] # (Auto) 0.8 (0.1-1.2) X10*3/uL Eos # (Auto) 0.0 (0.0-0.4) X10*3/uL Baso # (Auto) 0.0 (0.0-0.2) X10*3/uL Abs Immat Gran (auto) 0.07 H (0.00-0.03) X10*3/uL Absolute Neuts (auto) 10.8 H (2.0-8.3) x10*3/uL Absolute Nucleated RBC 0.000 (0.0-0.012) X10*3/uL Nucleated RBC % (auto) 0.0 (0.0-0.2) /100WBC PT 25.6 H D (11.1-13.3) SEC INR 2.1 H (0.9-1.1) VBG pH (7.32-7.43) VBG pCO2 mmHg VBG pO2 mmHg VBG HCO3 (22-26) mmol/L VBG O2 Saturation % VBG Base Excess mmol/L Sodium (135-145) mmol/L Potassium (3.3-5.1) mmol/L Chloride (96-108) mmol/L Carbon Dioxide (22-29) mmol/L Anion Gap (12-20) BUN (9-16) mg/dL Creatinine (0.5-1.4) mg/dL Estim Creat Clear Calc Estimated GFR POC Glucose (60-115) mg/dL Random Glucose (60-115) mg/dL Lactic Acid (0.5-2.0) mmol/L Calcium (8.4-10.2) mg/dL Phosphorus (2.7-4.5) mg/dL Magnesium (1.6-2.6) mg/dL Total Bilirubin (0.0-1.0) mg/dL AST (5-37) U/L ALT (0-40) U/L Alkaline Phosphatase (39-117) U/L Troponin I High Sens (<3.5-35.0) ng/L B-Natriuretic Peptide (<100) pg/mL Total Protein (6.5-8.0) g/dL Albumin (3.5-5.0) g/dL COVID-19 ([facility]) Negative (Negative) COVID-19 Clin Com See Note 03/20/23 03/20/23 03/20/23 Range/Units 02:52 02:52 02:52 WBC (4.8-10.8) X10*3/uL RBC (4.60-5.80) X10*6/uL Hgb (14.0-18.0) g/dl Hct (42.0-52.0) % MCV (80.0-98.0) fL MCH (27.0-33.0) pg MCHC (31.0-36.0) g/dl RDW (11.0-16.0) % Plt Count (160-400) X10*3/uL MPV (9.4-12.4) fL Immature Gran % (Auto) (0.0-0.4) % Neut % (Auto) (45-73) % Lymph % (Auto) (20-40) % [place] % (Auto) (2-11) % Eos % (Auto) (0-4) % Baso % (Auto) (0-2) % Lymph # (Auto) (1.2-4.9) X10*3/uL [place] # (Auto) (0.1-1.2) X10*3/uL Eos # (Auto) (0.0-0.4) X10*3/uL Baso # (Auto) (0.0-0.2) X10*3/uL Abs Immat Gran (auto) (0.00-0.03) X10*3/uL Absolute Neuts (auto) (2.0-8.3) x10*3/uL Absolute Nucleated RBC (0.0-0.012) X10*3/uL Nucleated RBC % (auto) (0.0-0.2) /100WBC PT (11.1-13.3) SEC INR (0.9-1.1) VBG pH (7.32-7.43) VBG pCO2 mmHg VBG pO2 mmHg VBG HCO3 (22-26) mmol/L VBG O2 Saturation % VBG Base Excess mmol/L Sodium 134 L (135-145) mmol/L Potassium 4.0 (3.3-5.1) mmol/L Chloride 102 (96-108) mmol/L Carbon Dioxide 18 L (22-29) mmol/L Anion Gap 18 (12-20) BUN 14 (9-16) mg/dL Creatinine 1.08 (0.5-1.4) mg/dL Estim Creat Clear Calc 63.1 Estimated GFR > 60 POC Glucose (60-115) mg/dL Random Glucose 239 H (60-115) mg/dL Lactic Acid 2.0 (0.5-2.0) mmol/L Calcium 9.9 D (8.4-10.2) mg/dL Phosphorus 2.5 L (2.7-4.5) mg/dL Magnesium 1.5 L (1.6-2.6) mg/dL Total Bilirubin 0.8 (0.0-1.0) mg/dL AST 26 (5-37) U/L ALT 15 (0-40) U/L Alkaline Phosphatase 106 (39-117) U/L Troponin I High Sens 13.3 D (<3.5-35.0) ng/L B-Natriuretic Peptide (<100) pg/mL Total Protein 7.2 (6.5-8.0) g/dL Albumin 3.6 (3.5-5.0) g/dL COVID-19 ([facility]EMA) (Negative) COVID-19 Clin Com 03/20/23 03/20/23 03/20/23 Range/Units 02:52 03:00 03:26 WBC (4.8-10.8) X10*3/uL RBC (4.60-5.80) X10*6/uL Hgb (14.0-18.0) g/dl Hct (42.0-52.0) % MCV (80.0-98.0) fL MCH (27.0-33.0) pg MCHC (31.0-36.0) g/dl RDW (11.0-16.0) % Plt Count (160-400) X10*3/uL MPV (9.4-12.4) fL Immature Gran % (Auto) (0.0-0.4) % Neut % (Auto) (45-73) % Lymph % (Auto) (20-40) % [place] % (Auto) (2-11) % Eos % (Auto) (0-4) % Baso % (Auto) (0-2) % Lymph # (Auto) (1.2-4.9) X10*3/uL [place] # (Auto) (0.1-1.2) X10*3/uL Eos # (Auto) (0.0-0.4) X10*3/uL Baso # (Auto) (0.0-0.2) X10*3/uL Abs Immat Gran (auto) (0.00-0.03) X10*3/uL Absolute Neuts (auto) (2.0-8.3) x10*3/uL Absolute Nucleated RBC (0.0-0.012) X10*3/uL Nucleated RBC % (auto) (0.0-0.2) /100WBC PT (11.1-13.3) SEC INR (0.9-1.1) VBG pH 7.47 H (7.32-7.43) VBG pCO2 31 mmHg VBG pO2 47 mmHg VBG HCO3 23 (22-26) mmol/L VBG O2 Saturation 77.0 % VBG Base Excess 0.4 mmol/L Sodium (135-145) mmol/L Potassium (3.3-5.1) mmol/L Chloride (96-108) mmol/L Carbon Dioxide (22-29) mmol/L Anion Gap (12-20) BUN (9-16) mg/dL Creatinine (0.5-1.4) mg/dL Estim Creat Clear Calc Estimated GFR POC Glucose 227 H (60-115) mg/dL Random Glucose (60-115) mg/dL Lactic Acid (0.5-2.0) mmol/L Calcium (8.4-10.2) mg/dL Phosphorus (2.7-4.5) mg/dL Magnesium (1.6-2.6) mg/dL Total Bilirubin (0.0-1.0) mg/dL AST (5-37) U/L ALT (0-40) U/L Alkaline Phosphatase (39-117) U/L Troponin I High Sens (<3.5-35.0) ng/L B-Natriuretic Peptide 71 (<100) pg/mL Total Protein (6.5-8.0) g/dL Albumin (3.5-5.0) g/dL COVID-19 ([facility]) (Negative) COVID-19 Clin Com 03/20/23 03/20/23 Range/Units 04:29 04:29 WBC (4.8-10.8) X10*3/uL RBC (4.60-5.80) X10*6/uL Hgb (14.0-18.0) g/dl Hct (42.0-52.0) % MCV (80.0-98.0) fL MCH (27.0-33.0) pg MCHC (31.0-36.0) g/dl RDW (11.0-16.0) % Plt Count (160-400) X10*3/uL MPV (9.4-12.4) fL Immature Gran % (Auto) (0.0-0.4) % Neut % (Auto) (45-73) % Lymph % (Auto) (20-40) % [place] % (Auto) (2-11) % Eos % (Auto) (0-4) % Baso % (Auto) (0-2) % Lymph # (Auto) (1.2-4.9) X10*3/uL [place] # (Auto) (0.1-1.2) X10*3/uL Eos # (Auto) (0.0-0.4) X10*3/uL Baso # (Auto) (0.0-0.2) X10*3/uL Abs Immat Gran (auto) (0.00-0.03) X10*3/uL Absolute Neuts (auto) (2.0-8.3) x10*3/uL Absolute Nucleated RBC (0.0-0.012) X10*3/uL Nucleated RBC % (auto) (0.0-0.2) /100WBC PT (11.1-13.3) SEC INR (0.9-1.1) VBG pH (7.32-7.43) VBG pCO2 mmHg VBG pO2 mmHg VBG HCO3 (22-26) mmol/L VBG O2 Saturation % VBG Base Excess mmol/L Sodium (135-145) mmol/L Potassium (3.3-5.1) mmol/L Chloride (96-108) mmol/L Carbon Dioxide (22-29) mmol/L Anion Gap (12-20) BUN (9-16) mg/dL Creatinine (0.5-1.4) mg/dL Estim Creat Clear Calc Estimated GFR POC Glucose (60-115) mg/dL Random Glucose (60-115) mg/dL Lactic Acid 1.4 (0.5-2.0) mmol/L Calcium (8.4-10.2) mg/dL Phosphorus (2.7-4.5) mg/dL Magnesium (1.6-2.6) mg/dL Total Bilirubin (0.0-1.0) mg/dL AST (5-37) U/L ALT (0-40) U/L Alkaline Phosphatase (39-117) U/L Troponin I High Sens 13.6 (<3.5-35.0) ng/L B-Natriuretic Peptide (<100) pg/mL Total Protein (6.5-8.0) g/dL Albumin (3.5-5.0) g/dL COVID-19 ([facility]) (Negative) COVID-19 Clin Com Independent Interpretation I performed an independent interpretation of an: EKG Interpretation: sinus rhythm heart rate 98 beats per minute first-degree heart block nonspecific ST wave changes no acute ischemia no ST elevation Radiology Impression Discussion of test interpretation with radiology: I have reviewed the radiologist's reading. Radiologist Impression: CT/CT abdomen pelvis wo IV con IMPRESSION: ? 1. Bilateral lower lobe infiltrates. Suspect pneumonia. There is right lower lobe bronchial opacification. ? 2. Left colostomy. ? 3. Prominent small bowel loops containing fluid possibly related to an ileus. ? 4. Lower abdominal midline 5 cm collection with some associated gas possibly postoperative hemorrhage. Infection or developing infection is a consideration. A similar finding was present previously. ? Fleischner guidelines were followed. Critical Care Time Critical Care Time Critical Care Time: Yes Total Critical Care Time: 65 Attestation: The patient was critically ill with a high probability of imminent or life threatening deterioration. I spent greater than 70 minutes of discontinuous time evaluating the patient,delivering critical care at the bedside, discussing and evaluating pertinent data with consultants. Critical care time does not include time spent performing separately billable procedures or teaching. Total time spent performing critical care was 65 minutes. Discharge Plan Discharge Clinical Impression: Sepsis, Pneumonia Patient Disposition: Admitted As Inpatient Interventions: Admission Worksheet (ED) Last Done: 03/20/23 05:25 Discharge Date/Time: 03/20/23 05:26
--- NOTE | 2023-03-20 02:20 | PC.NURSE ---
Pt lethargic but responds to verbal command. Vitals stable Provider in with pt. Plan of care ongoing.
--- NOTE | 2023-03-20 02:28 | PC.NURSE ---
Covid test collected and sent EKG done
[2023-03-20] MEDS: Acetaminophen 325 MG TABLET 975 MG PO (02:33)
[2023-03-20] MEDS: Ibuprofen 600 MG TABLET PO (02:34)
[2023-03-20 02:49] LABS: COVID-19 Test Negative (Negative); IDNOW Serial# 6674DD1D
[2023-03-20 03:01] LABS: MANUAL DIFF FLAG NO
[2023-03-20 03:03] LABS: Basophils Percent Auto 0.3 % (0-2); Eosinophils Percent Auto 0.1 % (0-4); Hematocrit 34.5 % (42.0-52.0); Hemoglobin 11.2 g/dl (14.0-18.0); Imm Gran Abs Auto 0.07 X10*3/uL (0.00-0.03); Imm Gran Pct Auto 0.5 % (0.0-0.4); Lymphocytes Absolute Auto 1.6 X10*3/uL (1.2-4.9); Lymphocytes Percent Auto 11.9 % (20-40); Mean Corpuscular HGB Conc 32.5 g/dl (31.0-36.0); Mean Corpuscular Hemoglobin 27.5 pg (27.0-33.0); Mean Corpuscular Volume 84.8 fL (80.0-98.0); Mean Platelet Volume 9.5 fL (9.4-12.4); Monocytes Absolute Auto 0.8 X10*3/uL (0.1-1.2); Neutrophils Absolute Auto 10.8 x10*3/uL (2.0-8.3); Neutrophils Percent Auto 81.2 % (45-73); Platelet Count 264 X10*3/uL (160-400); Red Blood Count 4.07 X10*6/uL (4.60-5.80); Red Cell Distribution Width 16.1 % (11.0-16.0); White Blood Count 13.3 X10*3/uL (4.8-10.8)
[2023-03-20 03:06] LABS: Venous Blood Gas Refer to POC result
[2023-03-20 03:07] LABS: VBG Base Excess 0.4 mmol/L; VBG HCO3 23 mmol/L (22-26); VBG pCO2 31 mmHg; VBG pH 7.47 (7.32-7.43); VBG pO2 47 mmHg
[2023-03-20 03:09] LABS: INTERNATIONAL NORM RATIO 2.1 (0.9-1.1); Prothrombin Time 25.6 SEC (11.1-13.3)
[2023-03-20] MEDS: 0.9 % Sodium Chloride 1,000 ML 999 ML IV (03:11)
[2023-03-20] MEDS: cefTRIAXone sodium 1 GM in 0.9 % Sodium Chloride 50 ML IV (03:16)
[2023-03-20 03:21] LABS: Alanine Aminotransferase 15 U/L (0-40); Albumin Level 3.6 g/dL (3.5-5.0); Alkaline Phosphatase 106 U/L (39-117); Anion Gap 18 (12-20); Aspartate Amino Transferase 26 U/L (5-37); Bilirubin Total 0.8 mg/dL (0.0-1.0); Blood Urea Nitrogen 14 mg/dL (9-16); Calcium 9.9 mg/dL (8.4-10.2); Carbon Dioxide 18 mmol/L (22-29); Chloride 102 mmol/L (96-108); Creatinine Clr Calc Pharmacy 63.1; Estimated Glomerular Filt Rate > 60; Glucose Random 239 mg/dL (60-115); Magnesium 1.5 mg/dL (1.6-2.6); Sodium 134 mmol/L (135-145); Total Protein 7.2 g/dL (6.5-8.0)
--- NOTE | 2023-03-20 03:22 | PC.NURSE ---
resp therapy in to suction pt.
[2023-03-20 03:26] LABS: Troponin-I High Sensitivity 13.3 ng/L (<3.5-35.0)
[2023-03-20 03:27] LABS: B Type Natriuretic Peptide 71 pg/mL (<100)
[2023-03-20] MEDS: 0.9 % Sodium Chloride 2,000 ML 2000 ML IV (03:29)
[2023-03-20 03:30] LABS: Glucose, Whole Blood 227 mg/dL (60-115)
[2023-03-20] MEDS: Ketorolac Tromethamine 30 MG/ML VIAL IVPUSH (03:32)
[2023-03-20] MEDS: Piperacillin Sodium/Tazobactam 3.375 GM in 0.9 % Sodium Chloride 50 ML IV (03:33)
[2023-03-20 04:44] LABS: Lactic Acid 1.4 mmol/L (0.5-2.0)
[2023-03-20 04:53] LABS: Troponin-I High Sensitivity 13.6 ng/L (<3.5-35.0)
[2023-03-20] MEDS: Norepinephrine Bitartrate/D5W 8 MG/250 ML PLAST..BAG 39.24 MG IV (05:25)
[2023-03-20 05:30] LABS: ABG Base Excess -2.9 mmol/L; ABG HCO3 19 mmol/L (22-26); ABG pCO2 25 mmHg (32-45); ABG pH 7.48 (7.35-7.45); ABG pO2 146 mmHg (83-108)
[2023-03-20 05:58] LABS: ABG Refer to POC result
[2023-03-20 06:05] LABS: Appearance Urine Clear; Color Urine Yellow; Glucose Urine UA Negative (Negative); Leukocyte Esterase Urine Negative (Negative); Nitrite Urine Negative (Negative); Specific Gravity - Urine 1.015 (1.005-1.025); UMIC TRIGGER UACC YES; Urine Blood Trace (Negative); Urine Ketones Negative (Negative); Urine Protein 30 (1+) mg/dL (Neg-Trace)
[2023-03-20] MEDS: Sodium Bicarbonate 8.4% 50 MEQ/50 ML VIAL IVPUSH (06:07)
[2023-03-20] MEDS: propofoL 200 MG/20 ML VIAL 70 MG IVPUSH (06:07)
[2023-03-20] MEDS: propofoL 1,000 MG/100 ML VIAL 16.9 MG IVCONT (06:07)
[2023-03-20 06:09] LABS: Bacteria Urine None Seen (None Seen); Hyaline Casts Urine 0-2 /LPF (0-2); Squamous Epithelial Cell Urine 0-2 /HPF (0-2); WBC Urine 0-5 /HPF (0-5)
[2023-03-20 06:15] LABS: Phosphorus 2.5 mg/dL (2.7-4.5)
--- NOTE | 2023-03-20 06:17 | W.PM.CCHP ---
Procedures Date of Service Date of Service: 03/20/23 Central Line Placement Right IJ: Central Line Comments: Emergent Right internal jugular triple lumen central venous catheter placed in usual sterile conditions under ultrasound guidance for appropriate vascular access without immediate complications. Central line position verified with Chest XRAY. Consent for Procedure: Emergent-no informed consent obtained Time out performed: Yes Sterile Technique Used: Yes Patient placed on monitor/pulse ox: Yes MD prep: mask, gown and gloves Central line prep: Povidone-Iodine 1% Local anesthesia used: other anesthetic (On Prop for sedation ) Ultrasound used for placement: Yes Central line lumen inserted: triple Post procedure: sutured in place, good blood return, all ports aspirated, flushed, capped and sterile dressing applied Post procedure x-ray: tip of catheter in good position and no pneumothorax seen Patient tolerated procedure: well and no complications Complications: none
--- NOTE | 2023-03-20 06:19 | W.PM.CCHP ---
Procedures Date of Service Date of Service: 03/20/23 Intubation Intubation Comments: Patient require emergent intubation for airway protection.Patient intubated with 7.5 cuffed ET tube under glide scope guidance with visualization of vocal cords, without immediate complications. ET tube position verified with Chest XRAY. Consent for Procedure: Emergent-no informed consent obtained Time out performed: Yes Sedative: propofol Mg given: 70 ET tube size: 7.5 ET tube uncuffed: No Tube secured depth (cm): 23 Tube secured location: lips Tube placement confirmation: visualized tube passing through cords Patient tolerated procedure: well and no complications Intubation complications: none
[2023-03-20] MEDS: Magnesium Sulfate/H2O 2 GM/50 ML PIGGYBACK IV (06:32)
[2023-03-20] MEDS: vancomycin HCL 1,500 MG in 0.9 % Sodium Chloride 500 ML 333.33 MG IV (06:33)
[2023-03-20] MEDS: Potassium Phosphate/NS 15 MMOL/250 ML PLAST..BAG 62.5 MMOL IV (06:39)
--- NOTE | 2023-03-20 07:14 | PC.NURSE ---
Pt admitted to ICU at approx 0530 from ED. Upon initial assessment- pt unresponsive to painful stimuli. ABG done by RT. Decision made to intubate for airway protection per PRODUCTION SCHEDULER Delfina. Given total of Propofol 70 mg IVP for intubation, no paralytics given. ETT #7.5, 23 cm at lip. On AC/VC settings. TLC inserted to R IJ. pCXR confirmed lines/tubes. Levophed ordered and titrated to maintain MAP > 65. 1 amp of bicarb given IVP. Major ordered and placed. Brought to CT scan per order without incident at 0600. [facility] called and updated on pt status. Report given to oncoming RN.
--- NOTE | 2023-03-20 07:17 | PHA.PROG ---
Admission Date/Time: March 20, 2023 05:15 Indication: OTHER Weight in k.4 kg Adjusted body weight in K.44 [place] body weight in K.8 Obesity Dosing Indication % IBW: 25.1 Serum Creatinine - Last 168 Hours 03/20/23 02:52 Creatinine 1.08 Estimated CrCl and GFR - Last 168 Hours 03/20/23 02:52 Estim Creat Clear Calc 63.1 Estimated GFR > 60 Vancomycin Loading Dose: 1500 MG Current Vancomycin Dosing Regimen: 750 Q12 Vancomycin Monitoring using AUC goal of 400 - 600 range with trough as surrogate marker: 499 Date and Time for next Vancomycin Level to be drawn: 03/21 @0500 Pharmacist Comments on Vancomycin Plan: PT WAS ON VANCO AT RECENT VISIT. DISCONTINUED ON 03/15 WITH DISCHARGE. RELOADED TODAY BUT WILL PROBABLY NEED HIGHER DOSING THAN INSIGHT BELIEVES BASED ON HIS PREVIOUS DOSES. HE WAS AT 1500 MG Q12 WITH A TROUGH OF 19.1 ON 03/15. Vancomycin dosing will take advantage of [employer] as a clinical decision support tool that uses Bayesian modeling to calculate individual patient's pharmacokinetic parameters and forecast the patient's drug concentration time course with the target goal AUC 24 range of 400 - 600 mg/L/hr.
--- NOTE | 2023-03-20 07:17 | PHA.MEDREC ---
Pharmacy Consult ? Medication Reconciliation Pharmacy has completed the medication reconciliation. Patient was just discharged on 03/17/23
[2023-03-20] MEDS: Norepinephrine Bitartrate/D5W 8 MG/250 ML PLAST..BAG 85.02 MG IV (08:16)
[2023-03-20 08:23] LABS: MANUAL DIFF FLAG NO
[2023-03-20 08:24] LABS: VBG Base Excess -3.7 mmol/L; VBG HCO3 20 mmol/L (22-26); VBG pCO2 30 mmHg; VBG pH 7.41 (7.32-7.43); VBG pO2 49 mmHg
[2023-03-20 08:31] LABS: Basophils Percent Auto 0.2 % (0-2); Hemoglobin 8.4 g/dl (14.0-18.0); Imm Gran Abs Auto 0.08 X10*3/uL (0.00-0.03); Imm Gran Pct Auto 0.6 % (0.0-0.4); Lymphocytes Absolute Auto 1.6 X10*3/uL (1.2-4.9); Lymphocytes Percent Auto 12.5 % (20-40); Mean Corpuscular HGB Conc 31.1 g/dl (31.0-36.0); Mean Corpuscular Hemoglobin 26.8 pg (27.0-33.0); Mean Platelet Volume 9.8 fL (9.4-12.4); Monocytes Absolute Auto 0.8 X10*3/uL (0.1-1.2); Neutrophils Absolute Auto 10.4 x10*3/uL (2.0-8.3); Neutrophils Percent Auto 80.7 % (45-73); Platelet Count 253 X10*3/uL (160-400); Red Blood Count 3.14 X10*6/uL (4.60-5.80); Red Cell Distribution Width 16.1 % (11.0-16.0)
[2023-03-20] MEDS: Chlorhexidine Gluc Oral Rinse 15 ML MOUTHWASH BUCCAL ×3 (08:31→19:50)
[2023-03-20 08:32] LABS: White Blood Count 12.9 X10*3/uL (4.8-10.8)
[2023-03-20 08:40] LABS: Venous Blood Gas Refer to POC result
[2023-03-20 08:48] LABS: Anion Gap 15 (12-20); Blood Urea Nitrogen 14 mg/dL (9-16); Carbon Dioxide 19 mmol/L (22-29); Chloride 108 mmol/L (96-108); Creatinine Clr Calc Pharmacy 77.5; Estimated Glomerular Filt Rate > 60; Glucose Random 357 mg/dL (60-115); Magnesium 1.9 mg/dL (1.6-2.6); Phosphorus 4.3 mg/dL (2.7-4.5); Potassium 3.8 mmol/L (3.3-5.1); Sodium 138 mmol/L (135-145)
[2023-03-20 08:57] LABS: Glucose, Whole Blood 337 mg/dL (60-115)
[2023-03-20] MEDS: Insulin Lispro 100 UNIT/ML 3 ML VIAL SUBCUT ×2 (09:08→15:30)
[2023-03-20] MEDS: Insulin Glargine,Hum.rec.anlog 100 UNIT/ML 10 ML VIAL 20 UNIT SUBCUT (09:08)
[2023-03-20] MEDS: propofoL 1,000 MG/100 ML VIAL 8.45 MG IVCONT ×2 (10:15→19:02)
--- NOTE | 2023-03-20 10:22 | MHC.CM.PN ---
IMM DELIVERED, EXPLAINED TO FATHER/HCP LISA VIA TELEPHONE, WHITE COPY TO BE MAILED. + HCP ON FILE. 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 PLAN WILL BE TO RETURN THERE UPON RECOVERY VIA BLS. CM WILL CONTINUE TO FOLLOW FOR ANY CHANGE IN DC PLAN/NEEDS.
[2023-03-20] MEDS: Norepinephrine Bitartrate/D5W 8 MG/250 ML PLAST..BAG 82.41 MG IV (10:48)
--- NOTE | 2023-03-20 11:06 | MHC.CLN ---
RE: CONSULT PT IS INTUBATED AND SEDATED FAMILIAR TO PT FROM PREVIOUS ADMISSION PT WITH G TUBE IN PLACE CURRENTLY NPO IF TF NEEDED; RECOMMEND GLUCERNA AT MAX GAOL RATE 85ML/HR WITH 120ML FREE WATER FLUSHES Q 8 HRS TO PROVIDE 2040KCALS (29KCALS/KG), 85G PROTEIN (1.2G/KG), 2100ML TOTAL FREE WATER FROM FORMULA AND FLUSHES (30ML/KG) MONITOR TOLERANCE, RESIDUALS AND LYTES SEE ALSO FULL CLINICAL NUTRITION ASSESSMENT
[2023-03-20 11:58] LABS: Glucose, Whole Blood 345 mg/dL (60-115)
[2023-03-20 12:15] LABS: MANUAL DIFF FLAG NO
[2023-03-20 12:18] LABS: Basophils Absolute Auto 0.1 X10*3/uL (0.0-0.2); Basophils Percent Auto 0.5 % (0-2); Hematocrit 28.8 % (42.0-52.0); Imm Gran Abs Auto 0.09 X10*3/uL (0.00-0.03); Imm Gran Pct Auto 0.7 % (0.0-0.4); Lymphocytes Absolute Auto 1.2 X10*3/uL (1.2-4.9); Lymphocytes Percent Auto 9.5 % (20-40); Mean Corpuscular HGB Conc 31.3 g/dl (31.0-36.0); Mean Corpuscular Hemoglobin 26.9 pg (27.0-33.0); Mean Platelet Volume 10.1 fL (9.4-12.4); Monocytes Absolute Auto 0.9 X10*3/uL (0.1-1.2); Monocytes Percent Auto 7.2 % (2-11); Neutrophils Absolute Auto 10.5 x10*3/uL (2.0-8.3); Neutrophils Percent Auto 82.1 % (45-73); Platelet Count 267 X10*3/uL (160-400); Red Blood Count 3.35 X10*6/uL (4.60-5.80); White Blood Count 12.8 X10*3/uL (4.8-10.8)
[2023-03-20] MEDS: Piperacillin Sodium/Tazobactam 4.5 GM in 0.9 % Sodium Chloride 100 ML IV ×2 (12:25→19:50)
[2023-03-20] MEDS: Norepinephrine Bitartrate/D5W 8 MG/250 ML PLAST..BAG 77.18 MG IV (13:34)
[2023-03-20 15:31] LABS: Glucose, Whole Blood 380 mg/dL (60-115)
[2023-03-20] MEDS: Norepinephrine Bitartrate/D5W 8 MG/250 ML PLAST..BAG 71.94 MG IV (16:45)
[2023-03-20] MEDS: vancomycin HCL 750 MG in 0.9 % Sodium Chloride 250 ML 265 MG IV (18:38)
--- NOTE | 2023-03-20 18:53 | P.HPCC_ITS ---
History of Present Illness Date of Service: 03/20/23 Attending physician on admission: Kevin Rodriguez Chief Complaint: weakness The patient is a 62-year-old? gentleman with underlying CAD status post CABG, AFib, COPD, diabetes? 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 to emergency department for weakness.? On arrival to emergency room patient was lethargic, saturation 70% on room air,? hypotensive and febrile to 103.1.? ?Laboratory data was significant for WBC? 13.3, hemoglobin 11.2, crit 34.5, 0 sodium 134, serum bicarbonate 18,? phos 2.5, PC 1.5, ?Initial blood gas 7.47/ ?Imaging:? ?Abdominal CT: Prominent small bowel loops containing fluid possibly related to an ileus.? Lower abdominal midline 5 cm collection with some associated gas possi dionisio postoperative hemorrhage. Infection or developing infection is a consideration. A similar finding was present previously. ? ED course:? ?Patient received? Tylenol 975 , [id number] , ceftriaxone 1 g,? ? Zosyn, and a total of 3 L of saline will continue to be hypotensive requiring admission to t he ICU ?Upon arrival to ICU concern for airway protection, ? patient responding to painful stimuli,? intubated emergently. Review of Systems Review of Systems: Yes unobtainable due to endotracheal tube and Unobtainable due to mental condition PMFSH Past Medical History Medical History (Updated 03/20/23 @ 19:29 by Mark Mathis NP) Altered mental status Amblyopia, left eye Anemia Atherosclerotic heart disease of [place] coronary artery without angina pectoris Boutonniere deformity of finger Candidal urinary tract infection Cognitive impairment COPD (chronic obstructive pulmonary disease) COVID-19 Dementia Drug induced subacute dyskinesia Dysphagia Encephalopathy Essential (primary) hypertension Exotropia, alternating, with A pattern Hyperlipidemia Hypermetropia of both eyes Hypothyroidism Palsy (spasm) of conjugate gaze Paranoid schizophrenia Personal history of transient ischemic attack (TIA), and cerebral infarction without residual deficits Ptosis of right eyelid Type 2 diabetes mellitus Surgical History Surgical History Presence of aortocoronary bypass graft Social History Social History Household Members: Unknown / Unable to assess Household Members Other:: [facility] Housing: Custodial Housing Other:: [facility] Do you presently have visiting nurse or other home services: No Unable to assess alcohol history related to: Unable to respond Patient Tobacco Use Status: Former Tobacco user Tobacco use type: Cigarette Years Smoked: SURAJ Smoked in Last 30 Days: No Use of substances other than those prescribed or required for medical reasons: Unable to respond Currently Displaying Signs/Symptoms of Drug Intoxication Withdrawal: No Advance Directives: Yes Advance Directives on File: Yes Advance Directives Date on File: 12/14/21 Do you have thoughts of harming others: None Do you have a plan to hurt others: No Plan Recently lost weight without trying: Unsure Nutrition Risks: On aspiration precautions Poor oral hygiene: Yes service: No Current occupational status: disabled Meds Allergies Allergy/AdvReac Type Severity Reaction Status Date / Time No Known Allergies Allergy Unverified 04/05/20 19:36 [No Known Allergies*] Active Medications: Current Medications Chlorhexidine Gluconate (Chlorhexidine Gluc Oral Rinse 15 Ml Mouthwash) 15 ml BUCCAL TID [facility] Last Admin: 03/20/23 15:18 Dose: 15 ml Propofol (Diprivan) 1,000 mg in 100 mls @ 0 mls/hr IVCONT .Q0M [facility]; Protocol Last Admin: 03/20/23 10:15 Dose: 20 mcg/kg/min, 8.45 mls/hr Piperacillin Sod/Tazobactam (Sod 4.5 gm/ Sodium Chloride) 100 mls @ 200 mls/hr IV Q8H [facility] Last Infusion: 03/20/23 13:21 Dose: Infused Vancomycin HCl 750 mg/ Sodium (Chloride) 265 mls @ 265 mls/hr IV Q12H [facility] Last Admin: 03/20/23 18:38 Dose: 265 mls/hr Erythromycin Lactobionate 500 (mg/ Sodium Chloride) 100 mls @ 100 mls/hr IV Q6H [facility] Last Infusion: 03/20/23 16:43 Dose: Infused Norepinephrine Bitartrate 8 mg (/ Sodium Chloride) 250 mls @ 0 mls/hr IVCONT .Q0M [facility]; Protocol Norepinephrine Bitartrate (Levophed) 8 mg in 250 mls @ 0 mls/hr IVCONT .Q0M [facility] Insulin Glargine (Insulin Glargine,Hum.Rec.Anlog 100 Unit/Ml 10 Ml Vial) 20 unit SUBCUT DAILY [facility] Last Admin: 03/20/23 09:08 Dose: 20 unit Insulin Human Lispro (Insulin Lispro 100 Unit/Ml 3 Ml Vial) 0 unit SUBCUT Q6H [facility]; Protocol Last Admin: 03/20/23 15:30 Dose: 10 unit Pharmacy Consult (Consult Rx Vancomycin Dosing) 1 each MISCELLANE DAILY PRN PRN Reason: Consult order Home Medications Medication Instructions Recorded Confirmed Last Taken Type insulin glargine 100 unit/mL (3 20 unit subcut BEDTIME 12/13/21 03/20/23 12/12/21 History mL) subcutaneous pen (Lantus Solostar U-100 Insulin) lactulose 10 gram/15 mL oral 30 ml PO DAILY 12/13/21 03/20/23 12/12/21 History solution nicotine 7 mg/24 hr daily 1 patch transdermal Q24H PRN 12/27/22 03/20/23 Unknown History transdermal patch Smoking Cessation sennosides 8.6 mg tablet (senna) 8.6 mg PO DAILY PRN Constipation 12/27/22 03/20/23 Unknown History metoprolol tartrate 25 mg tablet 12.5 mg PO BID 02/20/23 03/20/23 Unknown History amiodarone 200 mg tablet 200 mg G-tube DAILY 03/20/23 03/20/23 Unknown History Physical Exam Vital Signs: Vital Signs: Last Vital Signs Temp 96.6 F L 03/20/23 15:00 Pulse 54 03/20/23 16:45 Resp 19 03/20/23 15:00 BP 119/58 L 03/20/23 16:45 Pulse Ox 99 03/20/23 15:00 O2 Del Method Mechanical Ventil ation 03/20/23 15:00 O2 Flow Rate 30 03/20/23 13:00 FiO2 21 03/20/23 18:39 BMI result Body Mass Index 23.6 ?General:? obtunded, not responding to painful stimuli ?HEENT:? Head is normocephalic, atraumatic, pupils equal round but fixed bilaterally.?Buccal mucosa is dry, Neck is supple ?Cardiac:? sinus rhythm. Clear S1-S2, no murmurs rubs or gallops. ?Pulmonary:? Clear to auscultation, no wheezes, rales or rhonchi. ?Abdomen:? ?Abdomen soft, non-tender, non-distended. Left colostomy and Gtube present ?Neurologic:?withdrawing arms to painful stimuli only. Pupils fixed. ?Skin:?no clubbing or cyanosis.? Vascular:? 2+ pulses upper and lower extremities distally.? Results Labs 03/20/23 12:10 03/20/23 08:20 Labs: Laboratory Results - last 24 hr 03/20/23 03/20/23 03/20/23 02:38 02:52 02:52 MCV 84.8 MCH 27.5 MCHC 32.5 RDW 16.1 H Plt Count 264 MPV 9.5 Immature Gran % (Auto) 0.5 H Neut % (Auto) 81.2 H Lymph % (Auto) 11.9 L [place] % (Auto) 6.0 Eos % (Auto) 0.1 Baso % (Auto) 0.3 Lymph # (Auto) 1.6 [place] # (Auto) 0.8 Eos # (Auto) 0.0 Baso # (Auto) 0.0 Abs Immat Gran (auto) 0.07 H Absolute Neuts (auto) 10.8 H Absolute Nucleated RBC 0.000 Nucleated RBC % (auto) 0.0 PT 25.6 H D INR 2.1 H O2 Saturation ABG pH at Pt Temp ABG pCO2 at Pt Temp ABG pO2 at Pt Temp ABG HCO3 ABG Base Excess (Actual) VBG pH VBG pCO2 VBG pO2 VBG HCO3 VBG O2 Saturation VBG Base Excess Anion Gap Estim Creat Clear Calc Estimated GFR POC Glucose Random Glucose Lactic Acid Calcium Phosphorus Magnesium Total Bilirubin AST ALT Alkaline Phosphatase B-Natriuretic Peptide Total Protein Albumin Urine Color Urine Appearance Urine pH Ur Specific [place] Path Urine Protein Urine Glucose (UA) Urine Ketones Urine Blood Urine Nitrite Ur Leukocyte Esterase Urine RBC Urine WBC Ur Squamous Epith Cells Urine Bacteria Hyaline Casts COVID-19 ([facility]) Negative COVID-19 Clin Com See Note 03/20/23 03/20/23 03/20/23 02:52 02:52 02:52 MCV MCH MCHC RDW Plt Count MPV Immature Gran % (Auto) Neut % (Auto) Lymph % (Auto) [place] % (Auto) Eos % (Auto) Baso % (Auto) Lymph # (Auto) [place] # (Auto) Eos # (Auto) Baso # (Auto) Abs Immat Gran (auto) Absolute Neuts (auto) Absolute Nucleated RBC Nucleated RBC % (auto) PT INR O2 Saturation ABG pH at Pt Temp ABG pCO2 at Pt Temp ABG pO2 at Pt Temp ABG HCO3 ABG Base Excess (Actual) VBG pH VBG pCO2 VBG pO2 VBG HCO3 VBG O2 Saturation VBG Base Excess Anion Gap 18 Estim Creat Clear Calc 63.1 Estimated GFR > 60 POC Glucose Random Glucose 239 H Lactic Acid 2.0 Calcium 9.9 D Phosphorus 2.5 L Magnesium 1.5 L Total Bilirubin 0.8 AST 26 ALT 15 Alkaline Phosphatase 106 B-Natriuretic Peptide 71 Total Protein 7.2 Albumin 3.6 Urine Color Urine Appearance Urine pH Ur Specific [place] Path Urine Protein Urine Glucose (UA) Urine Ketones Urine Blood Urine Nitrite Ur Leukocyte Esterase Urine RBC Urine WBC Ur Squamous Epith Cells Urine Bacteria Hyaline Casts COVID-19 ([facility]EMA) COVID-19 [employer] 03/20/23 03/20/23 03/20/23 03:00 03:26 04:29 MCV MCH MCHC RDW Plt Count MPV Immature Gran % (Auto) Neut % (Auto) Lymph % (Auto) [place] % (Auto) Eos % (Auto) Baso % (Auto) Lymph # (Auto) [place] # (Auto) Eos # (Auto) Baso # (Auto) Abs Immat Gran (auto) Absolute Neuts (auto) Absolute Nucleated RBC Nucleated RBC % (auto) PT INR O2 Saturation ABG pH at Pt Temp ABG pCO2 at Pt Temp ABG pO2 at Pt Temp ABG HCO3 ABG Base Excess (Actual) VBG pH 7.47 H VBG pCO2 31 VBG pO2 47 VBG HCO3 23 VBG O2 Saturation 77.0 VBG Base Excess 0.4 Anion Gap Estim Creat Clear Calc Estimated GFR POC Glucose 227 H Random Glucose Lactic Acid 1.4 Calcium Phosphorus Magnesium Total Bilirubin AST ALT Alkaline Phosphatase B-Natriuretic Peptide Total Protein Albumin Urine Color Urine Appearance Urine pH Ur Specific [place] Path Urine Protein Urine Glucose (UA) Urine Ketones Urine Blood Urine Nitrite Ur Leukocyte Esterase Urine RBC Urine WBC Ur Squamous Epith Cells Urine Bacteria Hyaline Casts COVID-19 ([facility]EMA) COVID-19 [employer] 03/20/23 03/20/2303/20/23 05:24 05:54 08:20 MCV 86.0 MCH 26.8 L MCHC 31.1 RDW 16.1 H Plt Count 253 MPV 9.8 Immature Gran % (Auto) 0.6 H Neut % (Auto) 80.7 H Lymph % (Auto) 12.5 L [place] % (Auto) 6.0 Eos % (Auto) 0.0 Baso % (Auto) 0.2 Lymph # (Auto) 1.6 [place] # (Auto) 0.8 Eos # (Auto) 0.0 Baso # (Auto) 0.0 Abs Immat Gran (auto) 0.08 H Absolute Neuts (auto) 10.4 H Absolute Nucleated RBC 0.000 Nucleated RBC % (auto) 0.0 PT INR O2 Saturation 100.0 ABG pH at Pt Temp 7.48 H ABG pCO2 at Pt Temp 25 L ABG pO2 at Pt Temp 146 H ABG HCO3 19 L ABG Base Excess (Actual) -2.9 VBG pH VBG pCO2 VBG pO2 VBG HCO3 VBG O2 Saturation VBG Base Excess Anion Gap Estim Creat Clear Calc Estimated GFR POC Glucose Random Glucose Lactic Acid Calcium Phosphorus Magnesium Total Bilirubin AST ALT Alkaline Phosphatase B-Natriuretic Peptide Total Protein Albumin Urine Color Yellow Urine Appearance Clear Urine pH 6.[address] [address] 1.015 Urine Protein 30 (1+) H Urine Glucose (UA) Negative Urine Ketones Negative Urine Blood Trace H Urine Nitrite Negative Ur Leukocyte Esterase Negative Urine RBC 6-10 H Urine WBC 0-5 Ur Squamous Epith Cells 0-2 Urine Bacteria None Seen Hyaline Casts 0-2 COVID-19 ([facility]) COVID-19 Clin Com 03/20/23 03/20/23 03/20/23 08:20 08:20 08:53 MCV MCH MCHC RDW Plt Count MPV Immature Gran % (Auto) Neut % (Auto) Lymph % (Auto) [place] % (Auto) Eos % (Auto) Baso % (Auto) Lymph # (Auto) [place] # (Auto) Eos # (Auto) Baso # (Auto) Abs Immat Gran (auto) Absolute Neuts (auto) Absolute Nucleated RBC Nucleated RBC % (auto) PT INR O2 Saturation ABG pH at Pt Temp ABG pCO2 at Pt Temp ABG pO2 at Pt Temp ABG HCO3 ABG Base Excess (Actual) VBG pH 7.41 VBG pCO2 30 VBG pO2 49 VBG HCO3 20 L VBG O2 Saturation 77.0 VBG Base Excess -3.7 Anion Gap 15 Estim Creat Clear Calc 77.5 Estimated GFR > 60 POC Glucose 337 H Random Glucose 357 H* Lactic Acid Calcium 8.0 L D Phosphorus 4.3 Magnesium 1.9 Total Bilirubin AST ALT Alkaline Phosphatase B-Natriuretic Peptide Total Protein Albumin Urine Color Urine Appearance Urine pH Ur Specific [place] Path Urine Protein Urine Glucose (UA) Urine Ketones Urine Blood Urine Nitrite Ur Leukocyte Esterase Urine RBC Urine WBC Ur Squamous Epith Cells Urine Bacteria Hyaline Casts COVID-19 ([facility]EMA) COVID-19 [employer] Com 03/20/23 03/20/23 03/20/23 11:55 12:10 15:27 MCV 86.0 MCH 26.9 L MCHC 31.3 RDW 16.0 Plt Count 267 MPV 10.1 Immature Gran % (Auto) 0.7 H Neut % (Auto) 82.1 H Lymph % (Auto) 9.5 L [place] % (Auto) 7.2 Eos % (Auto) 0.0 Baso % (Auto) 0.5 Lymph # (Auto) 1.2 [place] # (Auto) 0.9 Eos # (Auto) 0.0 Baso # (Auto) 0.1 Abs Immat Gran (auto) 0.09 H Absolute Neuts (auto) 10.5 H Absolute Nucleated RBC 0.000 Nucleated RBC % (auto) 0.0 PT INR O2 Saturation ABG pH at Pt Temp ABG pCO2 at Pt Temp ABG pO2 at Pt Temp ABG HCO3 ABG Base Excess (Actual) VBG pH VBG pCO2 VBG pO2 VBG HCO3 VBG O2 Saturation VBG Base Excess Anion Gap Estim Creat Clear Calc Estimated GFR POC Glucose 345 H 380 H* Random Glucose Lactic Acid Calcium Phosphorus Magnesium Total Bilirubin AST ALT Alkaline Phosphatase B-Natriuretic Peptide Total Protein Albumin Urine Color Urine Appearance Urine pH Ur Specific [place] Path Urine Protein Urine Glucose (UA) Urine Ketones Urine Blood Urine Nitrite Ur Leukocyte Esterase Urine RBC Urine WBC Ur Squamous Epith Cells Urine Bacteria Hyaline Casts COVID-19 ([facility]) COVID-19 [employer] Com Imaging Radiologist's Impressions: Impressions Chest X-Ray 03/20/23 02:29 IMPRESSION: Right-sided diffuse increased markings/coarsening with similar change at the left lung base. Similar findings were present previously and possibly representing residual infiltrates. Abdomen/Pelvis CT 03/20/23 04:55 IMPRESSION: 1. Bilateral lower lobe infiltrates. Suspect pneumonia. There is right lower lobe bronchial opacification. 2. Left colostomy. 3. Prominent small bowel loops containing fluid possibly related to an ileus. 4. Lower abdominal midline 5 cm collection with some associated gas possibly postoperative hemorrhage. Infection or developing infection is a consideration. A similar finding was present previously. Fleischner guidelines were followed. Chest X-Ray 03/20/23 06:05 IMPRESSION: Low lung volumes limits evaluation. 1. Tracheal tube and right central line in place. 2. Patchy right wao-ah-ohxzv lung field changes. Increased markings at the left base. Head CT 03/20/23 06:46 IMPRESSION: No acute finding. Areas of old infarct and white matter ischemic change are noted. There is no midline shift. There is no mass effect. There is no hemorrhage. Other findings are as noted above. Chest CT 03/20/23 06:47 IMPRESSION: 1. Bilateral lower lobe pneumonia and patchy airspace disease in the right upper lobe and left upper lobe. 2. Cholelithiasis. 3. Mild wedge-shaped deformity of T3 vertebral body, indeterminate age. Fleischner guidelines were followed. Assessment and Plan (1) Severe sepsis: Status: Acute (2) Pneumonia: Status: Acute (3) Dysphagia: Status: Acute (4) Hypophosphatemia: Status: Acute (5) SYEDA (acute kidney injury): Status: Acute (6) Aspiration into airway: Status: Acute Plan Neuro:?Altered mental status-? patient is usually alter her baseline, ? but on arrival to ICU patient now mentating,? not responding to painful stimuli,? pupils fixed.? Require emergent? intubation.? Head CT ordered Cardiac:?? ?Severe sepsis-? no evidence of septic shock as a patient lactic was never elevated,? likely from aspiration /pneumonia.? Continue? antibiotics.? ?hypotension-? likely related to severe sepsis,? requiring pressors.? Weaned off pressors as tolerated Pulmonary:?? Acute hypoxic? respiratory failure-? patient? low probability for PE,? CT of the abdomen showing bilateral lower lobe pneumonia and questionable aspiration. Will add a chest CT. ? Intubated for airway protection? Will add broad-spectrum antibiotics.? Wean off ventilator as tolerated.? Keep 02 saturation 88-92%.?? Renal:?? ?SYEDA- most likely related to hypoperfusion.? Nonoliguric. ? Received 3 L normal saline in the emergency room. Continue to check renal induces and urine output Endo:?? ?No acute issues GI:? No acute issues? ID:? multi lobe pneumonia/ aspiration- ? no evidence of septic shock, ? lactic is normal.? Cultures are pending.? Patient received ceftriaxone and? Zosyn in the ED. will broaden coverage vancomycin Heme/Onc:? No acute issues. Psych:? No acute issues. Miscellaneous:? No acute issues. Prophylaxis: Eliquis, IV pepcid? Critical care time spent:? 120 minutes case discussed with Dr Rodriguez Time Spent With Patient Time: Total time managing care of this patient today ____ minutes.
[2023-03-20 19:20] LABS: Glucose, Whole Blood 299 mg/dL (60-115)
[2023-03-20] MEDS: Apixaban 5 MG TABLET PO (20:43)
[2023-03-20 23:59] LABS: Glucose, Whole Blood 213 mg/dL (60-115)
[2023-03-21] VITALS (30 sets, daily range): BP systolic 92–133; BP diastolic 48–73; PULSE 55–69; RESP 18–29; TEMP 34.2–37.9; O2SAT 96–99; BMI 22.1
[2023-03-21] MEDS: propofoL 1,000 MG/100 ML VIAL 12.67 MG IVCONT ×2 (00:02→04:58)
[2023-03-21] MEDS: Insulin Lispro 100 UNIT/ML 3 ML VIAL SUBCUT (00:02)
[2023-03-21] MEDS: Piperacillin Sodium/Tazobactam 4.5 GM in 0.9 % Sodium Chloride 100 ML IV ×3 (03:45→19:41)
[2023-03-21 05:06] LABS: MANUAL DIFF FLAG NO
[2023-03-21 05:07] LABS: VBG Base Excess -1.2 mmol/L; VBG HCO3 21 mmol/L (22-26); VBG pCO2 29 mmHg; VBG pH 7.46 (7.32-7.43); VBG pO2 75 mmHg
[2023-03-21 05:08] LABS: Basophils Percent Auto 0.4 % (0-2); Eosinophils Absolute Auto 0.1 X10*3/uL (0.0-0.4); Eosinophils Percent Auto 1.1 % (0-4); Hematocrit 28.2 % (42.0-52.0); Imm Gran Abs Auto 0.06 X10*3/uL (0.00-0.03); Imm Gran Pct Auto 0.5 % (0.0-0.4); Lymphocytes Absolute Auto 1.5 X10*3/uL (1.2-4.9); Mean Corpuscular HGB Conc 31.9 g/dl (31.0-36.0); Mean Corpuscular Hemoglobin 27.1 pg (27.0-33.0); Mean Corpuscular Volume 84.9 fL (80.0-98.0); Mean Platelet Volume 9.7 fL (9.4-12.4); Monocytes Percent Auto 8.6 % (2-11); Neutrophils Absolute Auto 8.6 x10*3/uL (2.0-8.3); Neutrophils Percent Auto 76.4 % (45-73); Platelet Count 207 X10*3/uL (160-400); Red Blood Count 3.32 X10*6/uL (4.60-5.80); White Blood Count 11.3 X10*3/uL (4.8-10.8)
[2023-03-21 05:17] LABS: Venous Blood Gas Refer to POC result
[2023-03-21 05:23] LABS: Vancomycin Random 10.1 mcg/mL (15-20)
[2023-03-21 05:26] LABS: Anion Gap 14 (12-20); Blood Urea Nitrogen 7 mg/dL (9-16); Calcium 8.2 mg/dL (8.4-10.2); Carbon Dioxide 20 mmol/L (22-29); Chloride 116 mmol/L (96-108); Creatinine Clr Calc Pharmacy 109.1; Estimated Glomerular Filt Rate > 60; Glucose Random 136 mg/dL (60-115); Magnesium 1.8 mg/dL (1.6-2.6); Phosphorus 2.8 mg/dL (2.7-4.5); Potassium 3.5 mmol/L (3.3-5.1); Sodium 146 mmol/L (135-145)
[2023-03-21 06:22] LABS: Albumin Level 2.8 g/dL (3.5-5.0)
--- NOTE | 2023-03-21 06:24 | HE.PHANOTE ---
RE: TATYANAO Patient has recieved a proper load and 1 dose of 750 mg so far, level is 10.1. Patients renal function has improved greatly, Scr at 0.67 today down from 1.08 yesterday, increasing to 1250 mg Q12H. Predicted AUC 498. Next draw 03/22 @1700
[2023-03-21] MEDS: vancomycin HCL 1,250 MG in 0.9 % Sodium Chloride 250 ML 166.67 MG IV ×2 (06:29→18:14)
[2023-03-21] MEDS: Potassium Phosphate/NS 15 MMOL/250 ML PLAST..BAG 62.5 MMOL IV (07:09)
[2023-03-21] MEDS: Albumin Human 25 % 100 ML IV ×3 (07:09→19:34)
[2023-03-21] MEDS: Famotidine/PF 20 MG/2 ML VIAL IVPUSH (07:58)
[2023-03-21] MEDS: Insulin Glargine,Hum.rec.anlog 100 UNIT/ML 10 ML VIAL 20 UNIT SUBCUT (07:58)
[2023-03-21] MEDS: Chlorhexidine Gluc Oral Rinse 15 ML MOUTHWASH BUCCAL (07:58)
[2023-03-21] MEDS: Apixaban 5 MG TABLET PO ×2 (07:59→21:13)
[2023-03-21] MEDS: Metoclopramide HCl 10 MG/2 ML VIAL IVPUSH ×3 (09:33→21:13)
--- NOTE | 2023-03-21 10:50 | P.PNCC_ITS ---
Subjective Subjective Date of Service: 03/21/23 Interval History: 62-year-old gentleman with underlying CAD status post CABG, AFib, COPD, diabetes mellitus, hypothyroidism, schizophrenia from [facility] with recent admission for sigmoid follows, now admitted on 03/20/2023 with weakness, let hargy, acute respiratory failure and shock requiring intubation and ventilatory support, and pressor support. No events overnight, no output from ostomy. Critical Care Time (minutes): 60 Physical Exam Vital Signs: Vital Signs: Last Vital Signs Temp 97.9 F 03/21/23 10:00 Pulse 59 03/21/23 10:00 Resp 21 H 03/21/23 10:00 BP 117/54 L 03/21/23 10:00 Pulse Ox 98 03/21/23 10:00 O2 Del Method Mechanical Ventil ation 03/21/23 10:00 O2 Flow Rate 30 03/20/23 13:00 FiO2 21 03/21/23 10:00 BMI result Body Mass Index 22.1 Const: General: no acute distress and other ( Sedated on the vent) Eyes: Sclerae: sclerae normal EOM: EOMs intact bilaterally Neck: Neck: Yes no lymphadenopathy, Yes trachea midline and Yes supple Resp: Effort & Inspection: normal respiratory effort and no respiratory distress Auscultation: clear to auscultation bilaterally Cardio: Rate: regular rate Rhythm: regular rhythm Heart sounds: no gallops, no murmurs and no rubs GI: Inspection: Yes other ( ostomy with no output) Palpation (GI): Soft to palpation and Other GI palpation findings present ( Nontender) Auscultation: normal bowel sounds Extrem: General: Yes no pedal edema, No clubbing and No cyanosis Objective Data Labs 03/21/23 04:58 03/21/23 04:58 Labs: Laboratory Results - last 24 hr 03/20/23 03/20/23 03/20/23 11:55 12:10 15:27 WBC 12.8 H RBC 3.35 L Hgb 9.0 L Hct 28.8 L MCV 86.0 MCH 26.9 L MCHC 31.3 RDW 16.0 Plt Count 267 MPV 10.1 Immature Gran % (Auto) 0.7 H Neut % (Auto) 82.1 H Lymph % (Auto) 9.5 L [place] % (Auto) 7.2 Eos % (Auto) 0.0 Baso % (Auto) 0.5 Lymph # (Auto) 1.2 [place] # (Auto) 0.9 Eos # (Auto) 0.0 Baso # (Auto) 0.1 Abs Immat Gran (auto) 0.09 H Absolute Neuts (auto) 10.5 H Absolute Nucleated RBC 0.000 Nucleated RBC % (auto) 0.0 VBG pH VBG pCO2 VBG pO2 VBG HCO3 VBG O2 Saturation VBG Base Excess Sodium Potassium Chloride Carbon Dioxide Anion Gap BUN Creatinine Estim Creat Clear Calc Estimated GFR POC Glucose 345 H 380 H* Random Glucose Calcium Phosphorus Magnesium Albumin Random Vancomycin 03/20/23 03/20/23 03/21/23 19:16 23:55 04:58 WBC RBC Hgb Hct MCV MCH MCHC RDW Plt Count MPV Immature Gran % (Auto) Neut % (Auto) Lymph % (Auto) [place] % (Auto) Eos % (Auto) Baso % (Auto) Lymph # (Auto) [place] # (Auto) Eos # (Auto) Baso # (Auto) Abs Immat Gran (auto) Absolute Neuts (auto) Absolute Nucleated RBC Nucleated RBC % (auto) VBG pH VBG pCO2 VBG pO2 VBG HCO3 VBG O2 Saturation VBG Base Excess Sodium Potassium Chloride Carbon Dioxide Anion Gap BUN Creatinine Estim Creat Clear Calc Estimated GFR POC Glucose 299 H 213 H Random Glucose Calcium Phosphorus Magnesium Albumin Random Vancomycin 10.1 L 03/21/23 03/21/23 03/21/23 04:58 04:58 05:02 WBC 11.3 H RBC 3.32 L Hgb 9.0 L Hct 28.2 L MCV 84.9 MCH 27.1 MCHC 31.9 RDW 16.0 Plt Count 207 MPV 9.7 Immature Gran % (Auto) 0.5 H Neut % (Auto) 76.4 H Lymph % (Auto) 13.0 L [place] % (Auto) 8.6 Eos % (Auto) 1.1 Baso % (Auto) 0.4 Lymph # (Auto) 1.5 [place] # (Auto) 1.0 Eos # (Auto) 0.1 Baso # (Auto) 0.0 Abs Immat Gran (auto) 0.06 H Absolute Neuts (auto) 8.6 H Absolute Nucleated RBC 0.000 Nucleated RBC % (auto) 0.0 VBG pH 7.46 H VBG pCO2 29 VBG pO2 75 VBG HCO3 21 L VBG O2 Saturation 96.0 VBG Base Excess -1.2 Sodium 146 H Potassium 3.5 Chloride 116 H Carbon Dioxide 20 L Anion Gap 14 BUN 7 L Creatinine 0.67 Estim Creat Clear Calc 109.1 Estimated GFR > 60 POC Glucose Random Glucose 136 H Calcium 8.2 L Phosphorus 2.8 Magnesium 1.8 Albumin 2.8 L Random Vancomycin Microbiology Microbiology Results: Microbiology 03/20/23 02:52 Blood - Venous Blood Culture - Preliminary No growth after 24 hours. 03/20/23 02:52 Blood - Venous Blood Culture - Preliminary No growth after 24 hours. Progress Note: A&P Assessment and plan (1) Ileus: Status: Acute (2) Aspiration into airway: Status: Acute (3) SYEDA (acute kidney injury): Status: Acute (4) Severe sepsis: Status: Acute (5) Paroxysmal atrial fibrillation: Status: Acute (6) CAD (coronary artery disease): Status: Acute (7) Type 2 diabetes mellitus: Status: Acute (8) Paranoid schizophrenia: Status: Acute (9) Acute respiratory failure with hypoxia: Status: Acute Plan Assessment: 62-year-old gentleman with recent admission for sigmoid or is status post sigmoidectomy and placement of ostomy, now admitted with issues, acute respiratory failure, and septic shock of unclear etiology Plan: Neuro: No acute issues. Cardiac: shock is improving, continue to titrate off pressors as tolerated. Pulmonary: Acute respiratory failure secondary to pulmonary aspiration on background of ileus requiring ventilatory support, improving. Continue to titrate off ventilatory support as tolerated. Renal: No acute issues. Endo: No acute issues. GI: Ileus, possible stenotic ostomy. Continue on promotility agents. ID: cultures negative to date, continue broad-spectrum antibiotics. Heme/Onc: No acute issues. Psych: No acute issues. Miscellaneous: No acute issues. Prophylaxis: Heparin Diet: nothing by mouth Critical care time spent: 60 minutes Quality Stroke Does the patient have a stroke diagnosis?: No VTE Prior VTE?: No VTE Risk Level:: Medical - moderate - high VTE Device Contraindication: N/A - Device Ordered VTE Drug Contraindication: Treatment Not Tolerated
[2023-03-21 11:44] LABS: Glucose, Whole Blood 142 mg/dL (60-115)
--- NOTE | 2023-03-21 12:53 | PC.NURSE ---
MD requested sedation vacation. Propofol was turned off at 1210. at 1220, pt would squeeze designer/writer's hands, open eyes, and wiggle feet on command. Pt able to turn head on command. Pt demonstrated positive cough response. Moderate amount of thick garcia secretions suctioned from ET tube. MD placed order for extubation. At 1235 with RT at bedside, pt was placed on PSV vent settings at 18/8 quickly followed by 18/5 to good effect. Pt extubated at 1243. Moderate amount of thick garcia secretions suctioned orally. Pt was initially placed on 3L via NC, but was quickly titrated down to room air. restraints removed at 1247.
--- NOTE | 2023-03-21 15:23 | MHC.CM.PN ---
Pt from [facility]: extubated today in ICU: call placed to [facility] who will fax an updated HCP naming pt's brother Ke and primary proxy. [facility] states they do not have an updated [facility] and the copy they have from 2017 (which is the one [facility] has) shows pt as a full code. CM updated JACK WINDER on above: will wait for HCP fax
[2023-03-21 18:14] LABS: Glucose, Whole Blood 119 mg/dL (60-115)
[2023-03-21 23:40] LABS: Glucose, Whole Blood 91 mg/dL (60-115)
[2023-03-22] VITALS (19 sets, daily range): BP systolic 88–119; BP diastolic 48–61; PULSE 61–69; RESP 12–29; TEMP 36.1–37.7; O2SAT 94–100; BMI 21.1
[2023-03-22] MEDS: Albumin Human 25 % 100 ML IV (02:09)
[2023-03-22] MEDS: Piperacillin Sodium/Tazobactam 4.5 GM in 0.9 % Sodium Chloride 100 ML IV ×3 (03:21→20:37)
[2023-03-22] MEDS: Metoclopramide HCl 10 MG/2 ML VIAL IVPUSH ×4 (03:21→20:36)
[2023-03-22 04:23] LABS: Glucose, Whole Blood 81 mg/dL (60-115)
[2023-03-22 04:52] LABS: VBG Base Excess 0.9 mmol/L; VBG HCO3 22 mmol/L (22-26); VBG pCO2 26 mmHg; VBG pH 7.53 (7.32-7.43); VBG pO2 111 mmHg
[2023-03-22 04:53] LABS: MANUAL DIFF FLAG NO
[2023-03-22 04:55] LABS: Venous Blood Gas Refer to POC result
[2023-03-22 04:55] LABS: Basophils Percent Auto 0.4 % (0-2); Eosinophils Absolute Auto 0.1 X10*3/uL (0.0-0.4); Eosinophils Percent Auto 1.1 % (0-4); Hematocrit 25.8 % (42.0-52.0); Hemoglobin 8.2 g/dl (14.0-18.0); Imm Gran Abs Auto 0.05 X10*3/uL (0.00-0.03); Imm Gran Pct Auto 0.6 % (0.0-0.4); Lymphocytes Absolute Auto 1.9 X10*3/uL (1.2-4.9); Lymphocytes Percent Auto 24.5 % (20-40); Mean Corpuscular HGB Conc 31.8 g/dl (31.0-36.0); Mean Corpuscular Hemoglobin 26.6 pg (27.0-33.0); Mean Corpuscular Volume 83.8 fL (80.0-98.0); Monocytes Absolute Auto 0.8 X10*3/uL (0.1-1.2); Monocytes Percent Auto 9.5 % (2-11); Neutrophils Percent Auto 63.9 % (45-73); Platelet Count 150 X10*3/uL (160-400); Red Blood Count 3.08 X10*6/uL (4.60-5.80); Red Cell Distribution Width 16.1 % (11.0-16.0); White Blood Count 7.9 X10*3/uL (4.8-10.8)
[2023-03-22 05:17] LABS: Alanine Aminotransferase 14 U/L (0-40); Albumin Level 3.9 g/dL (3.5-5.0); Alkaline Phosphatase 70 U/L (39-117); Anion Gap 11 (12-20); Aspartate Amino Transferase 24 U/L (5-37); Bilirubin Total 0.9 mg/dL (0.0-1.0); Blood Urea Nitrogen 6 mg/dL (9-16); Calcium 9.1 mg/dL (8.4-10.2); Carbon Dioxide 23 mmol/L (22-29); Chloride 117 mmol/L (96-108); Creatinine Clr Calc Pharmacy 87.1; Estimated Glomerular Filt Rate > 60; Glucose Random 77 mg/dL (60-115); Magnesium 1.6 mg/dL (1.6-2.6); Phosphorus 2.5 mg/dL (2.7-4.5); Potassium 3.5 mmol/L (3.3-5.1); Sodium 147 mmol/L (135-145); Total Protein 6.2 g/dL (6.5-8.0)
[2023-03-22 05:57] LABS: Glucose, Whole Blood 75 mg/dL (60-115)
[2023-03-22] MEDS: Dextrose 50 % 25 GM/50 ML SYRINGE IVPUSH (06:01)
[2023-03-22] MEDS: Potassium Phosphate/NS 15 MMOL/250 ML PLAST..BAG 62.5 MMOL IV (06:05)
[2023-03-22] MEDS: Magnesium Sulfate/D5W 1 GM/100 ML PIGGYBACK IV (06:11)
[2023-03-22] MEDS: Dextrose 5 % 1,000 ML 50 ML IVCONT (06:22)
[2023-03-22 06:45] LABS: Glucose, Whole Blood 203 mg/dL (60-115)
[2023-03-22 06:45] LABS: Glucose, Whole Blood 189 mg/dL (60-115)
[2023-03-22 06:45] LABS: Glucose, Whole Blood 204 mg/dL (60-115)
[2023-03-22] MEDS: vancomycin HCL 1,250 MG in 0.9 % Sodium Chloride 250 ML 166.67 MG IV (07:27)
[2023-03-22] MEDS: Famotidine/PF 20 MG/2 ML VIAL IVPUSH (08:40)
[2023-03-22] MEDS: Apixaban 5 MG TABLET PO ×2 (08:40→21:33)
--- NOTE | 2023-03-22 10:22 | P.PNCC_ITS ---
Subjective Subjective Date of Service: 03/22/23 Interval History: 62-year-old gentleman with underlying CAD status post CABG, AFib, COPD, diabetes mellitus, hypothyroidism, schizophrenia from [facility] with recent admission for sigmoid follows, now admitted on 03/20/2023 with weakness, let hargy, acute respiratory failure and shock requiring intubation and ventilatory support, and pressor support. Extubated 03/21/2023. No events overnight. Titrated off pressors. Minimal output from ostomy. Critical Care Time (minutes): 30 Physical Exam Vital Signs: Vital Signs: Last Vital Signs Temp 98.8 F 03/22/23 09:56 Pulse 66 03/22/23 09:56 Resp 12 03/22/23 09:56 BP 103/56 L 03/22/23 09:56 Pulse Ox 100 03/22/23 09:56 O2 Del Method Room Air 03/22/23 09:56 O2 Flow Rate 30 03/20/23 13:00 FiO2 21 03/21/23 11:53 BMI result Body Mass Index 21.1 Const: General: no acute distress, alert and awake Eyes: Sclerae: sclerae normal EOM: EOMs intact bilaterally Neck: Neck: Yes no lymphadenopathy, Yes trachea midline and Yes supple Resp: Effort & Inspection: normal respiratory effort and no respiratory distress Auscultation: clear to auscultation bilaterally Cardio: Rate: regular rate Rhythm: regular rhythm Heart sounds: no gallops, no murmurs and no rubs GI: Inspection: Yes other (ostomy with minimal output) Palpation (GI): Soft to palpation and Other GI palpation findings present ( Nontender) Auscultation: normal bowel sounds Extrem: General: Yes no pedal edema, No clubbing and No cyanosis Objective Data Labs 03/22/23 04:42 03/22/23 04:42 Labs: Laboratory Results - last 24 hr 03/21/23 03/21/23 03/21/23 11:40 18:10 23:34 WBC RBC Hgb Hct MCV MCH MCHC RDW Plt Count MPV Immature Gran % (Auto) Neut % (Auto) Lymph % (Auto) [place] % (Auto) Eos % (Auto) Baso % (Auto) Lymph # (Auto) [place] # (Auto) Eos # (Auto) Baso # (Auto) Abs Immat Gran (auto) Absolute Neuts (auto) Absolute Nucleated RBC Nucleated RBC % (auto) VBG pH VBG pCO2 VBG pO2 VBG HCO3 VBG O2 Saturation VBG Base Excess Sodium Potassium Chloride Carbon Dioxide Anion Gap BUN Creatinine Estim Creat Clear Calc Estimated GFR POC Glucose 142 H 119 H 91 Random Glucose Calcium Phosphorus Magnesium Total Bilirubin AST ALT Alkaline Phosphatase Total Protein Albumin 03/22/23 03/22/23 03/22/23 04:16 04:42 04:42 WBC 7.9 RBC 3.08 L Hgb 8.2 L Hct 25.8 L MCV 83.8 MCH 26.6 L MCHC 31.8 RDW 16.1 H Plt Count 150 L D MPV 10.0 Immature Gran % (Auto) 0.6 H Neut % (Auto) 63.9 Lymph % (Auto) 24.5 [place] % (Auto) 9.5 Eos % (Auto) 1.1 Baso % (Auto) 0.4 Lymph # (Auto) 1.9 [place] # (Auto) 0.8 Eos # (Auto) 0.1 Baso # (Auto) 0.0 Abs Immat Gran (auto) 0.05 H Absolute Neuts (auto) 5.0 Absolute Nucleated RBC 0.000 Nucleated RBC % (auto) 0.0 VBG pH VBG pCO2 VBG pO2 VBG HCO3 VBG O2 Saturation VBG Base Excess Sodium 147 H Potassium 3.5 Chloride 117 H Carbon Dioxide 23 Anion Gap 11 L BUN 6 L Creatinine 0.81 Estim Creat Clear Calc 87.1 Estimated GFR > 60 POC Glucose 81 Random Glucose 77 Calcium 9.1 D Phosphorus 2.5 L Magnesium 1.6 Total Bilirubin 0.9 AST 24 ALT 14 Alkaline Phosphatase 70 Total Protein 6.2 L Albumin 3.9 03/22/23 03/22/23 03/22/23 04:48 05:54 06:17 WBC RBC Hgb Hct MCV MCH MCHC RDW Plt Count MPV Immature Gran % (Auto) Neut % (Auto) Lymph % (Auto) [place] % (Auto) Eos % (Auto) Baso % (Auto) Lymph # (Auto) [place] # (Auto) Eos # (Auto) Baso # (Auto) Abs Immat Gran (auto) Absolute Neuts (auto) Absolute Nucleated RBC Nucleated RBC % (auto) VBG pH 7.53 H VBG pCO2 26 VBG pO2 111 VBG HCO3 22 VBG O2 Saturation 100.0 VBG Base Excess 0.9 Sodium Potassium Chloride Carbon Dioxide Anion Gap BUN Creatinine Estim Creat Clear Calc Estimated GFR POC Glucose 75 204 H Random Glucose Calcium Phosphorus Magnesium Total Bilirubin AST ALT Alkaline Phosphatase Total Protein Albumin 03/22/23 03/22/23 06:29 06:42 WBC RBC Hgb Hct MCV MCH MCHC RDW Plt Count MPV Immature Gran % (Auto) Neut % (Auto) Lymph % (Auto) [place] % (Auto) Eos % (Auto) Baso % (Auto) Lymph # (Auto) [place] # (Auto) Eos # (Auto) Baso # (Auto) Abs Immat Gran (auto) Absolute Neuts (auto) Absolute Nucleated RBC Nucleated RBC % (auto) VBG pH VBG pCO2 VBG pO2 VBG HCO3 VBG O2 Saturation VBG Base Excess Sodium Potassium Chloride Carbon Dioxide Anion Gap BUN Creatinine Estim Creat Clear Calc Estimated GFR POC Glucose 189 H 203 H Random Glucose Calcium Phosphorus Magnesium Total Bilirubin AST ALT Alkaline Phosphatase Total Protein Albumin Microbiology Microbiology Results: Microbiology 03/20/23 02:52 Blood - Venous Blood Culture - Preliminary No growth after 48 hours. 03/20/23 02:52 Blood - Venous Blood Culture - Preliminary No growth after 48 hours. Progress Note: A&P Assessment and plan (1) Ileus: Status: Acute (2) Afib: Status: Acute (3) CAD (coronary artery disease): Status: Acute (4) Type 2 diabetes mellitus: Status: Acute (5) Paranoid schizophrenia: Status: Acute (6) Cognitive impairment: Status: Acute Plan Assessment: 62-year-old gentleman with recent admission for sigmoid or is status post sigmoidectomy and placement of ostomy, now admitted with issues, acute respiratory failure, and septic shock of unclear etiology Plan: Neuro: No acute issues. Cardiac: shock resolved, titrated off pressors. Pulmonary: Acute respiratory failure secondary to pulmonary aspiration on background of ileus requiring ventilatory support, Resolved. Extubated on 03/21/2023. Renal: No acute issues. Endo: No acute issues. GI: Ileus, possible stenotic ostomy. Continue on promotility agents. ID: cultures negative to date, continue broad-spectrum antibiotics. Heme/Onc: No acute issues. Psych: No acute issues. Miscellaneous: No acute issues. Prophylaxis: Heparin Diet: nothing by mouth Critical care time spent: 30 minutes Quality Stroke Does the patient have a stroke diagnosis?: No VTE Prior VTE?: No VTE Risk Level:: Medical - moderate - high VTE Device Contraindication: N/A - Device Ordered VTE Drug Contraindication: Treatment Not Tolerated
[2023-03-22 12:00] LABS: Glucose, Whole Blood 144 mg/dL (60-115)
[2023-03-22 17:32] LABS: Vancomycin Random 7.9 mcg/mL (15-20)
[2023-03-22 18:14] LABS: Glucose, Whole Blood 110 mg/dL (60-115)
[2023-03-22] MEDS: Nicotine 14 MG PATCH.TD24 TRANSDERMA (20:39)
[2023-03-22 23:46] LABS: Glucose, Whole Blood 108 mg/dL (60-115)
[2023-03-23] MEDS: Dextrose 5 % 1,000 ML 50 ML IVCONT ×2 (00:55→21:12)
[2023-03-23 02:57] VITALS: BP 104/52; PULSE 72; RESP 20; TEMP 36.1; O2SAT 98
[2023-03-23] MEDS: Metoclopramide HCl 10 MG/2 ML VIAL IVPUSH ×4 (02:57→21:09)
[2023-03-23] MEDS: Piperacillin Sodium/Tazobactam 4.5 GM in 0.9 % Sodium Chloride 100 ML IV ×3 (04:13→21:07)
[2023-03-23 06:01] LABS: Glucose, Whole Blood 112 mg/dL (60-115)
[2023-03-23 06:51] LABS: MANUAL DIFF FLAG NO
[2023-03-23 07:02] LABS: Basophils Percent Auto 0.5 % (0-2); Eosinophils Absolute Auto 0.1 X10*3/uL (0.0-0.4); Eosinophils Percent Auto 2.1 % (0-4); Hematocrit 28.7 % (42.0-52.0); Imm Gran Abs Auto 0.03 X10*3/uL (0.00-0.03); Imm Gran Pct Auto 0.5 % (0.0-0.4); Lymphocytes Percent Auto 29.9 % (20-40); Mean Corpuscular HGB Conc 31.4 g/dl (31.0-36.0); Mean Corpuscular Hemoglobin 26.4 pg (27.0-33.0); Mean Corpuscular Volume 84.2 fL (80.0-98.0); Mean Platelet Volume 10.7 fL (9.4-12.4); Monocytes Absolute Auto 0.5 X10*3/uL (0.1-1.2); Monocytes Percent Auto 8.1 % (2-11); Neutrophils Absolute Auto 3.9 x10*3/uL (2.0-8.3); Neutrophils Percent Auto 58.9 % (45-73); Platelet Count 184 X10*3/uL (160-400); Red Blood Count 3.41 X10*6/uL (4.60-5.80); Red Cell Distribution Width 15.8 % (11.0-16.0); White Blood Count 6.7 X10*3/uL (4.8-10.8)
[2023-03-23 07:14] LABS: Albumin Level 3.5 g/dL (3.5-5.0); Anion Gap 11 (12-20); Blood Urea Nitrogen 6 mg/dL (9-16); Carbon Dioxide 21 mmol/L (22-29); Chloride 113 mmol/L (96-108); Estimated Glomerular Filt Rate > 60; Glucose Random 130 mg/dL (60-115); Magnesium 1.5 mg/dL (1.6-2.6); Phosphorus 2.4 mg/dL (2.7-4.5); Potassium 3.3 mmol/L (3.3-5.1); Sodium 142 mmol/L (135-145)
[2023-03-23 07:20] LABS: VBG HCO3 21 mmol/L (22-26); VBG pCO2 23 mmHg; VBG pH 7.57 (7.32-7.43); VBG pO2 180 mmHg
[2023-03-23 07:25] LABS: Venous Blood Gas Refer to POC result
[2023-03-23 07:27] VITALS: BP 125/55; PULSE 119; RESP 18; TEMP 35.9; O2SAT 99
[2023-03-23 08:00] VITALS: BMI 20.7
[2023-03-23] MEDS: Apixaban 5 MG TABLET PO ×2 (09:24→21:09)
[2023-03-23 11:22] LABS: Glucose, Whole Blood 137 mg/dL (60-115)
[2023-03-23 11:28] VITALS: BP 117/71; PULSE 102; RESP 17; TEMP 36.1; O2SAT 98
--- NOTE | 2023-03-23 13:22 | P.PNIM_ITS ---
Subjective Subjective Date of Service: 03/23/23 Interval History: Awake alert interactive. 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 Appears back to baseline as seen at [facility] Review of Systems Denies chest pain Denies shortness of breath Denies nausea vomiting diarrhea Denies fever chills Physical Exam Vital Signs: Vital Signs: Last Vital Signs Temp 97.0 F 03/23/23 11:28 Pulse 102 H 03/23/23 11:28 Resp 17 03/23/23 11:28 BP 117/71 03/23/23 11:28 Pulse Ox 98 03/23/23 11:28 O2 Del Method Room Air 03/23/23 11:28 O2 Flow Rate 30 03/20/23 13:00 FiO2 21 03/21/23 11:53 BMI result Body Mass Index 20.7 Const: Other: Awake alert interactive (baseline) Resp: Other: Coarse rhonchi throughout that clear with cough Cardio: Other: No S4; positive S1-S2; no S3 murmurs rubs or gallops GI: Other: Soft nontender nondistended normoactive bowel sounds. Colostomy bag appears to be functioning normally Extrem: Other: No edema bilaterally Objective Data Active Medications Apixaban (Apixaban 5 Mg Tablet) 5 mg PO BID [facility] Last Admin: 03/23/23 09:24 Dose: 5 mg Documented By: EVANGELIST Dextrose (Dextrose 50 % 25 Gm/50 Ml Syringe) 25 gm IVPUSH STAT PRN; Protocol PRN Reason: Hypoglycemia Last Admin: 03/22/23 06:01 Dose: 25 gm Documented By: SHAMIR Piperacillin Sod/Tazobactam (Sod 4.5 gm/ Sodium Chloride) 100 mls @ 200 mls/hr IV Q8H [facility] Last Infusion: 03/23/23 12:45 Dose: 0 mls/hr Documented By: EVANGELIST Erythromycin Lactobionate 500 (mg/ Sodium Chloride) 100 mls @ 100 mls/hr IV Q6H [facility] Last Infusion: 03/23/23 10:53 Dose: 0 mls/hr Documented By: EVANGELIST Dextrose (D5w) 1,000 mls @ 50 mls/hr IVCONT .Q20H [facility] Last Admin: 03/23/23 00:55 Dose: 50 mls/hr Documented By: GRACE Insulin Human Lispro (Insulin Lispro 100 Unit/Ml 3 Ml Vial) 0 unit SUBCUT Q6H [facility]; Protocol Last Admin: 03/23/23 11:23 Dose: Not Given Documented By: EVANGELIST Non-Admin Reason: No Insulin Coverage Metoclopramide HCl (Metoclopramide Hcl 10 Mg/2 Ml Vial) 10 mg IVPUSH Q6H [facility] Last Admin: 03/23/23 09:24 Dose: 10 mg Documented By: EVANGELIST Labs 03/23/23 06:44 03/23/23 06:44 Labs: Laboratory Results - last 24 hr 03/22/23 03/22/23 03/22/23 17:11 18:09 23:41 MCV MCH MCHC RDW Plt Count MPV Immature Gran % (Auto) Neut % (Auto) Lymph % (Auto) [place] % (Auto) Eos % (Auto) Baso % (Auto) Lymph # (Auto) [place] # (Auto) Eos # (Auto) Baso # (Auto) Abs Immat Gran (auto) Absolute Neuts (auto) Absolute Nucleated RBC Nucleated RBC % (auto) VBG pH VBG pCO2 VBG pO2 VBG HCO3 VBG O2 Saturation VBG Base Excess Anion Gap Estim Creat Clear Calc Estimated GFR POC Glucose 110 108 Random Glucose Calcium Phosphorus Magnesium Albumin Random Vancomycin 7.9 L 03/23/23 03/23/23 03/23/23 05:55 06:44 06:44 MCV 84.2 MCH 26.4 L MCHC 31.4 RDW 15.8 Plt Count 184 MPV 10.7 Immature Gran % (Auto) 0.5 H Neut % (Auto) 58.9 Lymph % (Auto) 29.9 [place] % (Auto) 8.1 Eos % (Auto) 2.1 Baso % (Auto) 0.5 Lymph # (Auto) 2.0 [place] # (Auto) 0.5 Eos # (Auto) 0.1 Baso # (Auto) 0.0 Abs Immat Gran (auto) 0.03 Absolute Neuts (auto) 3.9 Absolute Nucleated RBC 0.000 Nucleated RBC % (auto) 0.0 VBG pH VBG pCO2 VBG pO2 VBG HCO3 VBG O2 Saturation VBG Base Excess Anion Gap 11 L Estim Creat Clear Calc 82.0 Estimated GFR > 60 POC Glucose 112 Random Glucose 130 H Calcium 9.0 Phosphorus 2.4 L Magnesium 1.5 L Albumin 3.5 Random Vancomycin 03/23/23 03/23/23 07:16 11:17 MCV MCH MCHC RDW Plt Count MPV Immature Gran % (Auto) Neut % (Auto) Lymph % (Auto) [place] % (Auto) Eos % (Auto) Baso % (Auto) Lymph # (Auto) [place] # (Auto) Eos # (Auto) Baso # (Auto) Abs Immat Gran (auto) Absolute Neuts (auto) Absolute Nucleated RBC Nucleated RBC % (auto) VBG pH 7.57 H VBG pCO2 23 VBG pO2 180 VBG HCO3 21 L VBG O2 Saturation 99.0 VBG Base Excess 1.0 Anion Gap Estim Creat Clear Calc Estimated GFR POC Glucose 137 H Random Glucose Calcium Phosphorus Magnesium Albumin Random Vancomycin Microbiology Microbiology Results: Microbiology 03/20/23 02:52 Blood Culture - Preliminary Blood - Venous Prelim: Yeast Gram Stain only Assessment and Plan (1) Acute respiratory failure with hypoxia: Status: Acute (2) Dysphagia: Status: Acute (3) Pneumonia: Status: Acute (4) Type 2 diabetes mellitus: Status: Acute (5) Paranoid schizophrenia: Status: Acute Plan 62-year-old male with past medical history significant for coronary artery disease status post CABG, paroxysmal AFib, COPD, dm 2 in the backdrop of paranoid schizophrenia presents with what likely represented aspiration from [facility]. Was intubated in emergency room and transferred to ICU. Feedings were stopped at that time. During ICU stay, supervisor grower noted that there was scant output from colostomy bag. Concern was for stricture. Patient was maintained on NPO status and broad-spectrum antibiotics were initiated. Patient was subsequently extubated without issue and did well in the immediate post extubation period. He was transferred to telemetry and by my observation is back to his baseline as he was at [facility]. Feedings continue to be held. 1. Acute hypoxic respiratory failure likely secondary to aspiration pneumonia -continue Zosyn (4) -wean O2 as tolerated 2. Dysphagia (query secondary to dysmotility) -likely secondary to overall constellation of comorbidities at the time of admission; no overt neurological event -will restart tube feedings at 30 cc/hour and follow up closely -patient started on erythromycin IV along with Reglan to increase motility in ICU -will DC erythromycin and follow clinically... Can be discharged to [facility] on oral metoclopramide -[facility], he will receive a speech eval to assess swallow -encourage out of bed while feedings on 3. Type 2 diabetes - continue lispro correctional scale while in-house -adjust therapies as indicated 4. Paranoid schizophrenia -patient has been off clozaril for approximately 1week... Behaviors stable -will reassess need when returns to [facility]. .. Sooner as clinically indicated 5. Paroxysmal atrial fibrillation -acceptable rate control presently -continue Eliquis -adjust therapies as clinically indicated DNR/DNI Eliquis Patient will require ongoing hospitalization for IV antibiotics to treat aspiration pneumonia pending evaluation of G-tube feeding tolerance Time Spent With Patient Time: Total time managing care of this patient today ____ minutes. Quality Stroke Does the patient have a stroke diagnosis?: No VTE Prior VTE?: No VTE Risk Level:: Medical - moderate - high VTE Device Contraindication: N/A - Device Ordered VTE Drug Contraindication: Treatment Not Tolerated
--- NOTE | 2023-03-23 14:13 | MHC.CLN ---
F/U EXTUBATED 03/21. STARTING TUBE FEEDING AT GLUCERNA 30 ML PER HOUR; FLUSH 120 ML Q 8 HOURS. PROVIDES 720 KCALS, 39 G PROTEIN, 974 ML FREE WATER FROM FORMULA AND FLUSH. PLAN PER PROVIDER IS TO RETURN TO [facility] IF TOLERATES 30 ML PER HOUR RATE. MONITOR TOLERANCE, RESIDUALS AND LYTES. FOLLOW FOR PLAN OF CARE.
[2023-03-23 15:09] VITALS: BP 90/60; PULSE 108; RESP 16; TEMP 36; O2SAT 96
[2023-03-23 17:32] LABS: Glucose, Whole Blood 151 mg/dL (60-115)
--- NOTE | 2023-03-23 17:43 | PC.NURSE ---
Jevity started @ 17:53 with a rate of 30mL/hr per order. pt tolerating well
[2023-03-23 19:06] VITALS: BP 102/55; PULSE 111; RESP 20; TEMP 35.8; O2SAT 100
[2023-03-23 23:20] VITALS: BP 100/57; PULSE 99; RESP 18; TEMP 36.4; O2SAT 98
[2023-03-23 23:58] LABS: Glucose, Whole Blood 158 mg/dL (60-115)
[2023-03-24] VITALS (10 sets, daily range): BP systolic 87–135; BP diastolic 51–87; PULSE 70–118; RESP 18–20; TEMP 36.2–38.8; O2SAT 95–98; BMI 20.7
[2023-03-24] MEDS: Metoclopramide HCl 10 MG/2 ML VIAL IVPUSH ×4 (03:02→20:32)
[2023-03-24] MEDS: Piperacillin Sodium/Tazobactam 4.5 GM in 0.9 % Sodium Chloride 100 ML IV ×2 (03:02→12:57)
[2023-03-24 06:01] LABS: Glucose, Whole Blood 145 mg/dL (60-115)
[2023-03-24 07:29] LABS: Creatinine Clr Calc Pharmacy 66.7; Estimated Glomerular Filt Rate > 60
[2023-03-24 08:44] LABS: Magnesium 1.5 mg/dL (1.6-2.6)
[2023-03-24] MEDS: Acetaminophen 325 MG TABLET 650 MG G-TUBE ×2 (08:52→13:09)
[2023-03-24] MEDS: Apixaban 5 MG TABLET PO ×2 (08:52→20:31)
--- NOTE | 2023-03-24 11:44 | MHC.CLN ---
F/U PT CURRENTLY TOLERATING JEVITY AT 30ML/HR TF FORMULA CHANGED YESTERDAY R/T SUPPLY CHAIN SHORTAGE POSSIBLE D/C TO [facility] TODAY PER MD RECOMMEND TF JEVITY 1.0 AT MAX GOAL RATE 85ML/HR WITH 120ML Q 8 HR TO PROVIDE 2162KCALS (35KCALS/KG), 90G PROTEIN (1.5G/KG), 2063ML TOTAL WATER FROM FORMULA AND FLUSHES (33ML/KG) MONITOR TOLERANCE, RESIDUALS, BS AND LYTES CAN SWITCH BACK TO DM FORMULA UPON DISCHARGE AT DISCRETION OF FACILITY'S RD
[2023-03-24 12:05] LABS: Glucose, Whole Blood 149 mg/dL (60-115)
--- NOTE | 2023-03-24 13:06 | PC.NURSE ---
pt. temp 100.9 axillary. notified, per MD give q6 tylenol early to bring down fever
[2023-03-24 14:05] LABS: Potassium 3.5 mmol/L (3.3-5.1)
--- NOTE | 2023-03-24 15:29 | HO.PM.IMPN ---
Subjective Subjective Date of Service: 03/24/23 Interval History: intermittent fevers Review of Systems has some dry cough Physical Exam Vital Signs: Vital Signs: Last Vital Signs Temp 97.1 F 03/24/23 15:01 Pulse 81 03/24/23 15:01 Resp 20 03/24/23 15:01 BP 135/87 03/24/23 15:01 Pulse Ox 95 03/24/23 15:01 O2 Del Method Room Air 03/24/23 15:01 O2 Flow Rate 30 03/20/23 13:00 FiO2 21 03/21/23 11:53 BMI result Body Mass Index 20.7 Appearance: Awake alert interactive (baseline). cvs: [id number], [id number] . res: air entry fair , few scattered rhonchii abd: soft,nt, bs present.Colostomy bag appears to be functioning normally ext pulses present , no cyanosis . Objective Data Active Medications Acetaminophen (Acetaminophen 325 Mg Tablet) 650 mg G-TUBE Q6H PRN PRN Reason: Fever Last Admin: 03/24/23 13:09 Dose: 650 mg Documented By: SAIDA Apixaban (Apixaban 5 Mg Tablet) 5 mg PO BID [facility] Last Admin: 03/24/23 08:52 Dose: 5 mg Documented By: SAIDA Dextrose (Dextrose 50 % 25 Gm/50 Ml Syringe) 25 gm IVPUSH STAT PRN; Protocol PRN Reason: Hypoglycemia Last Admin: 03/22/23 06:01 Dose: 25 gm Documented By: SHAMIR Piperacillin Sod/Tazobactam (Sod 4.5 gm/ Sodium Chloride) 100 mls @ 200 mls/hr IV Q8H [facility] Last Infusion: 03/24/23 13:31 Dose: 0 mls/hr Documented By: SAIDA Magnesium Sulfate (Magnesium Sulfate/H2o) 2 gm in 50 mls @ 25 mls/hr IV ONCE ONE Stop: 03/24/23 15:43 Insulin Human Lispro (Insulin Lispro 100 Unit/Ml 3 Ml Vial) 0 unit SUBCUT Q6H [facility]; Protocol Last Admin: 03/24/23 12:11 Dose: Not Given Documented By: SAIDA Non-Admin Reason: No Insulin Coverage Metoclopramide HCl (Metoclopramide Hcl 10 Mg/2 Ml Vial) 10 mg IVPUSH Q6H [facility] Last Admin: 03/24/23 08:52 Dose: 10 mg Documented By: SAIDA Labs 03/23/23 06:44 03/24/23 07:05 Labs: Laboratory Results - last 24 hr 03/23/23 03/23/23 03/24/23 17:24 23:54 05:58 Estim Creat Clear Calc Estimated GFR POC Glucose 151 H 158 H 145 H Magnesium 03/24/23 03/24/23 07:05 12:02 Estim Creat Clear Calc 66.7 Estimated GFR > 60 POC Glucose 149 H Magnesium 1.5 L Microbiology Microbiology Results: Microbiology 03/20/23 02:52 Blood Culture - Preliminary Blood - Venous Yeast Assessment and Plan (1) Aspiration into airway: Status: Acute (2) Pneumonia: Status: Acute Plan 62-year-old male with past medical history significant for coronary artery disease status post CABG, paroxysmal AFib, COPD, dm 2 in the backdrop of paranoid schizophrenia presents with what likely represented aspiration from [facility].? Was intubated in emergency room and transferred to ICU.? Feedings were stopped at that time.? During ICU stay, punchboard inserter noted that there was scant output from colostomy bag.? Concern was for stricture.? Patient was maintained on NPO status and broad-spectrum antibiotics were initiated.? Patient was subsequently extubated without issue and did well in the immediate post extubation period.? He was transferred to telemetry and by my observation is back to his baseline as he was at [facility].? Feedings continue to be held. Acute hypoxic respiratory failure likely secondary to aspiration pneumonia intermittent fevers , has cough cxr showin -slightly improving air space dis . res panel and blood cultures added -continue Zosyn (5),tylenol prn for fevers -wean O2 as tolerated Dysphagia (query secondary to dysmotility)-likely secondary to overall constellation of comorbidities at the time of admission; no overt neurological event on tube feedings, follow up closely -patient started on erythromycin IV along with Reglan to increase motility in ICU off erythromycin and follow clinically. Reglan switched to PEG tube -upon return to [facility], he will receive a speech eval to assess swallow -encourage out of bed while feedings on Type 2 diabetes - continue lispro correctional scale while in-house -adjust therapies as indicated Paranoid schizophrenia -patient has been off clozaril for approximately 1week...? Behaviors stable -will reassess need when returns to [facility]. Paroxysmal atrial fibrillation -acceptable rate control presently -continue Eliquis -adjust therapies as clinically indicated DNR/DNI Eliquis ongoing hospitalization for IV antibiotics to treat aspiration pneumonia pending evaluation of G-tube feeding toleranc Time Spent With Patient Time: Total time managing care of this patient today ____ minutes. Quality Stroke Does the patient have a stroke diagnosis?: No VTE Prior VTE?: No VTE Risk Level:: Medical - moderate - high VTE Device Contraindication: N/A - Device Ordered VTE Drug Contraindication: Treatment Not Tolerated
[2023-03-24] MEDS: Magnesium Sulfate/H2O 2 GM/50 ML PIGGYBACK IV (15:41)
[2023-03-24] MEDS: Ibuprofen 200 MG TABLET G-TUBE (15:42)
[2023-03-24] MEDS: Potassium Chloride Packet 20 MEQ PACKET G-TUBE (15:42)
[2023-03-24 16:26] LABS: Adenovirus PCR Not Detected (Not Detect.); Bordetella parapertussis PCR Not Detected (Not Detect.); Bordetella pertussis PCR Not Detected (Not Detect.); Chlamydia pneumoniae PCR Not Detected (Not Detect.); Coronavirus 229E PCR Not Detected (Not Detect.); Coronavirus HKU1 PCR Not Detected (Not Detect.); Coronavirus NL63 PCR Not Detected (Not Detect.); Coronavirus OC43 PCR Not Detected (Not Detect.); Human metapneumovirus PCR Not Detected (Not Detect.); Influenza A PCR Not Detected (Not Detect.); Influenza B PCR Not Detected (Not Detect.); Mycoplasma pneumoniae PCR Not Detected (Not Detect.); Parainfluenza 1 PCR Not Detected (Not Detect.); Parainfluenza 2 PCR Not Detected (Not Detect.); Parainfluenza 3 PCR Not Detected (Not Detect.); Parainfluenza 4 PCR Not Detected (Not Detect.); RSV PCR Not Detected (Not Detect.); Rhino/Enterovirus PCR Not Detected (Not Detect.); SARS-CoV-2 PCR Not Detected (Not Detect.)
[2023-03-24 17:58] LABS: Glucose, Whole Blood 203 mg/dL (60-115)
[2023-03-24] MEDS: Insulin Lispro 100 UNIT/ML 3 ML VIAL SUBCUT (18:34)
[2023-03-24] MEDS: levalbuterol HCL 1.25 MG/3 ML VIAL.NEB INHALE (19:19)
[2023-03-24] MEDS: Caspofungin Acetate 70 MG in 0.9 % Sodium Chloride 250 ML 250 MG IV (19:40)
[2023-03-25] VITALS (13 sets, daily range): BP systolic 84–109; BP diastolic 41–56; PULSE 65–75; RESP 14–20; TEMP 36.2–37.3; O2SAT 94–99; BMI 25.7
[2023-03-25 00:10] LABS: Glucose, Whole Blood 161 mg/dL (60-115)
[2023-03-25] MEDS: Acetaminophen 325 MG TABLET 650 MG G-TUBE ×2 (00:37→09:29)
[2023-03-25] MEDS: Insulin Lispro 100 UNIT/ML 3 ML VIAL SUBCUT ×4 (00:37→17:37)
[2023-03-25] MEDS: Metoclopramide HCl 10 MG/2 ML VIAL IVPUSH ×4 (04:13→21:22)
[2023-03-25 06:07] LABS: Creatinine Clr Calc Pharmacy 87.9; Estimated Glomerular Filt Rate > 60
[2023-03-25 07:11] LABS: Glucose, Whole Blood 151 mg/dL (60-115)
[2023-03-25] MEDS: levalbuterol HCL 1.25 MG/3 ML VIAL.NEB INHALE ×3 (07:25→19:27)
[2023-03-25] MEDS: Apixaban 5 MG TABLET PO ×2 (09:30→21:22)
[2023-03-25 09:34] LABS: Magnesium 1.7 mg/dL (1.6-2.6); Potassium 3.4 mmol/L (3.3-5.1)
--- NOTE | 2023-03-25 10:13 | MHC.CM.PN ---
Per ROUNDS discussion, Patient is not yet medically cleared for dc (IV Caspofungin, IV Zosyn);returning to LTC is the plan and CM will continue to follow.
[2023-03-25] MEDS: Famotidine 20 MG TABLET G-TUBE ×2 (10:44→21:22)
[2023-03-25] MEDS: Lactated Ringers 1,000 ML 80 ML IVCONT (10:44)
--- NOTE | 2023-03-25 11:32 | MHC.CLN ---
F/U PT CURRENTLY TOLERATING JEVITY AT 80ML/HR TF FORMULA CHANGED R/T SUPPLY CHAIN SHORTAGE RECOMMEND INCREASE TF JEVITY 1.0 AT MAX GOAL RATE 85ML/HR WITH 120ML Q 8 HR TO PROVIDE 2162KCALS (35KCALS/KG), 90G PROTEIN (1.5G/KG), 2063ML TOTAL WATER FROM FORMULA AND FLUSHES (33ML/KG) MONITOR TOLERANCE, RESIDUALS, BS AND LYTES CAN SWITCH BACK TO DM FORMULA UPON DISCHARGE AT DISCRETION OF FACILITY'S RD
--- NOTE | 2023-03-25 11:33 | P.CDIM_ITS ---
PROVIDER RESPONSE TEXT: To clarify, the appropriate diagnosis supported by the clinical indicators: Other: severe sepsis QUERY TEXT: PHYSICIAN'S DOCUMENTATION REQUEST Date of Query: 03/25/2023 09:52 AM EDT Patient Name: Alejo Shetty Admit Date: 03/20/2023 Dear Karen Boyce, A review of the medical record indicates additional documentation may be needed. Please review below and update the documentation accordingly. Clinical indicators: ED 03/20 - Altered mental status, lethargic, temperatures of 103.1 - Clinical impression: Sepsis and Pn eumonia ICU H&P 03/20 - On arrival in Ed patient was lethargic, saturation 70% on RA, hypotensive and febrile t o 103.1. Patient received Tylenol, Ibuprofen, Ceftriaxone, Zosyn and total of 3 L of saline. ICU note 03/20 - Assessment and plan: Severe sepsis, acute hypoxic respiratory failure, pneumonia, radha, pressor support. WBC 13.3 Temp 103.1/102.6 RR 28 BP 58/29 L LA 5.4 ICU note 03/21 - Patient with Acute respiratory failure and shock requiring intubation and ventilatory support along with pressor support. Based on the above information and the recognized standard for sepsis, could you please clarify if th is diagnoses is still accurate and reflective of the patient's condition to ensure quality of the medical record. Sepsis: Severe sepsis with septic shock with organ failure, resolved Other please specify if known Other (explain)Clinically unable to determine (explain)Thank you, Earline Tobar, CCS, CDIS Use of terms such as suspected, likely, concern for, or probable (associated with a specific diagnosi s that is being evaluated, monitored, or treated as if it exists) are acceptable and can be coded in the inpatient se tting, when documented at the time of discharge. Please use your independent medical judgment in providing your response. THIS QUERY IS PART OF THE PERMANENT MEDICAL RECORD
[2023-03-25 12:00] LABS: Glucose, Whole Blood 167 mg/dL (60-115)
[2023-03-25 12:58] LABS: Albumin Level 3.2 g/dL (3.5-5.0)
[2023-03-25 14:05] LABS: Glucose, Whole Blood 194 mg/dL (60-115)
[2023-03-25 16:13] LABS: Glucose, Whole Blood 201 mg/dL (60-115)
--- NOTE | 2023-03-25 17:00 | P.CNID_ITS ---
History of Present Illness Data of Consult Service Date: 03/25/23 Requesting physician: Karen Boyce Primary Care Provider: DO CEFERINO Jorge Reason for consult: fungemia He presents with lethargy and temperature to 103 at [facility]. He had just been discharged after three week stay for sigmoid volvulus and colostomy. Healing area looks well. Review of Systems Review of Systems: Yes Unobtainable due to mental condition [facility] Past Medical History Medical History (Updated 03/25/23 @ 17:02 by Hilda Riley MD) Afib Altered mental status Amblyopia, left eye Anemia Atherosclerotic heart disease of [place] coronary artery without angina pectoris Boutonniere deformity of finger CAD (coronary artery disease) Candidal urinary tract infection Cognitive impairment COPD (chronic obstructive pulmonary disease) COVID-19 Dementia Drug induced subacute dyskinesia Dysphagia Encephalopathy Essential (primary) hypertension Exotropia, alternating, with A pattern Fungemia Hyperlipidemia Hypermetropia of both eyes Hypothyroidism Palsy (spasm) of conjugate gaze Paranoid schizophrenia Paroxysmal atrial fibrillation Personal history of transient ischemic attack (TIA), and cerebral infarction without residual deficits Ptosis of right eyelid Type 2 diabetes mellitus Family History Family history: reviewed and not pertinent Surgical History Surgical History Presence of aortocoronary bypass graft Social History Social History Household Members: Unknown / Unable to assess Household Members Other:: [facility] Housing: [facility] Housing Other:: [facility] Do you presently have visiting nurse or other home services: No Unable to assess alcohol history related to: Unable to respond Patient Tobacco Use Status: Former Tobacco user Tobacco use type: Cigarette Years Smoked: SURAJ Smoked in Last 30 Days: No Use of substances other than those prescribed or required for medical reasons: Unable to respond Currently Displaying Signs/Symptoms of Drug Intoxication Withdrawal: No Advance Directives: Yes Advance Directives on File: Yes Advance Directives Date on File: 12/14/21 Do you have thoughts of harming others: None Do you have a plan to hurt others: No Plan Recently lost weight without trying: Unsure Nutrition Risks: On aspiration precautions Poor oral hygiene: Yes service: No Current occupational status: disabled Meds Allergies Allergy/AdvReac Type Severity Reaction Status Date / Time No Known Allergies Allergy Unverified 04/05/20 19:36 [No Known Allergies*] Active Medications: Current Medications Acetaminophen (Acetaminophen 325 Mg Tablet) 650 mg G-TUBE Q6H PRN PRN Reason: Fever Last Admin: 03/25/23 09:29 Dose: 650 mg Apixaban (Apixaban 5 Mg Tablet) 5 mg PO BID [facility] Last Admin: 03/25/23 09:30 Dose: 5 mg Dextrose (Dextrose 50 % 25 Gm/50 Ml Syringe) 25 gm IVPUSH STAT PRN; Protocol PRN Reason: Hypoglycemia Last Admin: 03/22/23 06:01 Dose: 25 gm Famotidine (Famotidine 20 Mg Tablet) 20 mg G-TUBE BID [facility] Last Admin: 03/25/23 10:44 Dose: 20 mg Piperacillin Sod/Tazobactam (Sod 4.5 gm/ Sodium Chloride) 100 mls @ 200 mls/hr IV Q8H [facility] Last Infusion: 03/24/23 13:31 Dose: Infused Caspofungin 50 mg/ Sodium (Chloride) 250 mls @ 250 mls/hr IV Q24H [facility] Albumin Human (Kedbumin 25 %) 100 mls @ 100 mls/hr IV Q1H [facility] Stop: 03/25/23 18:44 Sodium Chloride (Ns) 1,000 mls @ 999 mls/hr IVCONT .Q1H1M [facility] Stop: 03/25/23 19:00 Insulin Human Lispro (Insulin Lispro 100 Unit/Ml 3 Ml Vial) 0 unit SUBCUT Q6H [facility]; Protocol Last Admin: 03/25/23 14:15 Dose: 2 unit Levalbuterol HCl (Levalbuterol Hcl 1.25 Mg/3 Ml Vial.Neb) 1.25 mg INHALE RTID [facility] Last Admin: 03/25/23 13:09 Dose: 1.25 mg Metoclopramide HCl (Metoclopramide Hcl 10 Mg/2 Ml Vial) 10 mg IVPUSH Q6H [facility] Last Admin: 03/25/23 14:15 Dose: 10 mg Home Medications Medication Instructions Recorded Confirmed Last Taken Type insulin glargine 100 unit/mL (3 20 unit subcut BEDTIME 12/13/21 03/20/23 12/12/21 History mL) subcutaneous pen (Lantus Solostar U-100 Insulin) lactulose 10 gram/15 mL oral 30 ml PO DAILY 12/13/21 03/20/23 12/12/21 History solution nicotine 7 mg/24 hr daily 1 patch transdermal Q24H PRN 12/27/22 03/20/23 Unknown History transdermal patch Smoking Cessation sennosides 8.6 mg tablet (senna) 8.6 mg PO DAILY PRN Constipation 12/27/22 03/20/23 Unknown History metoprolol tartrate 25 mg tablet 12.5 mg PO BID 02/20/23 03/20/23 Unknown History amiodarone 200 mg tablet 200 mg G-tube DAILY 03/20/23 03/20/23 Unknown History Physical Exam Vital Signs: Vital Signs: Last Vital Signs Temp 98.5 F 03/25/23 15:31 Pulse 69 03/25/23 15:31 Resp 14 03/25/23 15:31 BP 84/50 L 03/25/23 15:31 Pulse Ox 98 03/25/23 15:31 O2 Del Method Room Air 03/25/23 15:31 O2 Flow Rate 30 03/20/23 13:00 FiO2 21 03/21/23 11:53 BMI result Body Mass Index 25.7 Const: General: cooperative HEENT: Head: Yes normal to inspection Face and sinus: Yes normal facial exam Mouth: Normal oral and palatal mucosa present Teeth and gingiva: dentition normal Eyes: General: appearance normal, both eyes and all related structures Pupils: Equal, round and reactive pupils present Resp: Effort & Inspection: normal respiratory effort Cardio: Rate: regular rate Rhythm: regular rhythm GI: Palpation (GI): Soft to palpation and nontender : General: Yes no CVA tenderness Back/Spine/Pelvis: Back: no CVA tenderness Skin: General skin exam: no rashes or lesions noted Neuro: General: moves all extremities Cranial nerves: Yes Equal, round and reactive pupils present Extrem: General: Yes normal to inspection Psych: Other: confusion Results Labs 03/23/23 06:44 03/25/23 05:38 Labs: BMP 03/25/23 05:38 Potassium 3.4 Creatinine 0.75 Liver Function 03/25/23 Range/Units 05:38 Albumin 3.2 L (3.5-5.0) g/dL Microbiology Microbiology Results: Microbiology 03/24/23 14:23 Blood - Venous Blood Culture - Preliminary No growth after 24 hours. 03/24/23 14:23 Blood - Venous Blood Culture - Preliminary No growth after 24 hours. 03/20/23 02:52 Blood - Venous Blood Culture - Preliminary Yeast 03/20/23 02:52 Blood - Venous Blood Culture - Final No growth after 5 days. Assessment and Plan (1) Encephalopathy: Status: Acute (2) Fungemia: Status: Acute This is likely source of sepsis. He may have immunocompromised source due to sepsis. Plan Cancidas for now,probable 21 days. Await final culture. Eye eval for endopthalmitis as outpatient. Echo. Time Spent With Patient Time: Total time managing care of this patient today ____ minutes.
[2023-03-25] MEDS: Caspofungin Acetate 50 MG in 0.9 % Sodium Chloride 250 ML 250 MG IV (17:36)
[2023-03-25] MEDS: Albumin Human 25 % 100 ML IV ×3 (17:36→22:54)
[2023-03-25 17:47] LABS: Lactic Acid 1.4 mmol/L (0.5-2.0)
--- NOTE | 2023-03-25 17:56 | HO.PM.IMPN ---
Subjective Subjective Date of Service: 03/25/23 Interval History: possible fungal bacteremia Review of Systems denies new c/o fevers improving blood pressure boderline Physical Exam Vital Signs: Vital Signs: Last Vital Signs Temp 98.5 F 03/25/23 15:31 Pulse 69 03/25/23 15:31 Resp 14 03/25/23 15:31 BP 84/50 L 03/25/23 15:31 Pulse Ox 98 03/25/23 15:31 O2 Del Method Room Air 03/25/23 15:31 O2 Flow Rate 30 03/20/23 13:00 FiO2 21 03/21/23 11:53 BMI result Body Mass Index 25.7 Appearance: Awake alert interactive (baseline). cvs: rrr, [id number] . res: air entry fair , few scattered rhonchii abd: soft,nt, bs present.Colostomy bag appears to be functioning normally ext pulses present , no cyanosis . Objective Data Active Medications Acetaminophen (Acetaminophen 325 Mg Tablet) 650 mg G-TUBE Q6H PRN PRN Reason: Fever Last Admin: 03/25/23 09:29 Dose: 650 mg Documented By: LOUANN Apixaban (Apixaban 5 Mg Tablet) 5 mg PO BID [facility] Last Admin: 03/25/23 09:30 Dose: 5 mg Documented By: LOUANN Dextrose (Dextrose 50 % 25 Gm/50 Ml Syringe) 25 gm IVPUSH STAT PRN; Protocol PRN Reason: Hypoglycemia Last Admin: 03/22/23 06:01 Dose: 25 gm Documented By: SHAMIR Famotidine (Famotidine 20 Mg Tablet) 20 mg G-TUBE BID [facility] Last Admin: 03/25/23 10:44 Dose: 20 mg Documented By: SAIDA Piperacillin Sod/Tazobactam (Sod 4.5 gm/ Sodium Chloride) 100 mls @ 200 mls/hr IV Q8H [facility] Last Infusion: 03/24/23 13:31 Dose: 0 mls/hr Documented By: SAIDA Caspofungin 50 mg/ Sodium (Chloride) 250 mls @ 250 mls/hr IV Q24H [facility] Last Admin: 03/25/23 17:36 Dose: 250 mls/hr Documented By: LOUANN Albumin Human (Kedbumin 25 %) 100 mls @ 100 mls/hr IV Q1H [facility] Stop: 03/25/23 18:44 Last Admin: 03/25/23 17:36 Dose: 100 mls/hr Documented By: LOUANN Sodium Chloride (Ns) 1,000 mls @ 999 mls/hr IVCONT .Q1H1M [facility] Stop: 03/25/23 19:00 Insulin Human Lispro (Insulin Lispro 100 Unit/Ml 3 Ml Vial) 0 unit SUBCUT Q6H [facility]; Protocol Last Admin: 03/25/23 17:37 Dose: 4 unit Documented By: LOUANN Levalbuterol HCl (Levalbuterol Hcl 1.25 Mg/3 Ml Vial.Neb) 1.25 mg INHALE RTID [facility] Last Admin: 03/25/23 13:09 Dose: 1.25 mg Documented By: MIGUEL Metoclopramide HCl (Metoclopramide Hcl 10 Mg/2 Ml Vial) 10 mg IVPUSH Q6H [facility] Last Admin: 03/25/23 14:15 Dose: 10 mg Documented By: SAIDA Labs 03/23/23 06:44 03/25/23 05:38 Labs: Laboratory Results - last 24 hr 03/24/23 03/25/23 03/25/23 17:55 00:07 05:38 Estim Creat Clear Calc 87.9 Estimated GFR > 60 POC Glucose 203 H 161 H Lactic Acid Magnesium 1.7 Albumin 3.2 L 03/25/23 03/25/23 03/25/23 07:08 11:54 14:02 Estim Creat Clear Calc Estimated GFR POC Glucose 151 H 167 H 194 H Lactic Acid Magnesium Albumin 03/25/23 03/25/23 16:09 17:28 Estim Creat Clear Calc Estimated GFR POC Glucose 201 H Lactic Acid 1.4 Magnesium Albumin Microbiology Microbiology Results: Microbiology 03/24/23 14:23 Blood Culture - Preliminary Blood - Venous No growth after 24 hours. 03/24/23 14:23 Blood Culture - Preliminary Blood - Venous No growth after 24 hours. 03/20/23 02:52 Blood Culture - Preliminary Blood - Venous Yeast 03/20/23 02:52 Blood Culture - Final Blood - Venous No growth after 5 days. Assessment and Plan (1) Aspiration into airway: Status: Acute (2) Pneumonia: Status: Acute Plan 62-year-old male with past medical history significant for coronary artery disease status post CABG, paroxysmal AFib, COPD, dm 2 in the backdrop of paranoid schizophrenia presents with what likely represented aspiration from [facility].? Was intubated in emergency room and transferred to ICU.? Feedings were stopped at that time.? During ICU stay, escalator attendant noted that there was scant output from colostomy bag.? Concern was for stricture.? Patient was maintained on NPO status and broad-spectrum antibiotics were initiated.? Patient was subsequently extubated without issue and did well in the immediate post extubation period.? He was transferred to telemetry and by my observation is back to his baseline as he was at [facility].? Feedings continue to be held. Acute hypoxic respiratory failure likely secondary to aspiration pneumonia intermittent fevers , has cough cxr showin -slightly improving air space dis . res panel neg d/w Id dc continue Zosyn (5 days total got),tylenol prn for fevers -wean O2 as tolerated Possible fungemia added repeat blood culture -neg@24hrs,echo started on caspofungin bodelrine bp-likely due to dec po intake /hypoalbuminemia -added albumin/ns bolus , lactic acid normal moniter blood pressure Icu follow up. Dysphagia (query secondary to dysmotility)-likely secondary to overall constellation of comorbidities at the time of admission; no overt neurological event on tube feedings, follow up closely -patient started on erythromycin IV along with Reglan to increase motility in ICU off erythromycin and follow clinically. Reglan switched to PEG tube -upon return to [facility], he will receive a speech eval to assess swallow -encourage out of bed while feedings on Type 2 diabetes - continue lispro correctional scale while in-house -adjust therapies as indicated Paranoid schizophrenia -patient has been off clozaril for approximately 1week...? Behaviors stable -will reassess need when returns to [facility]. Paroxysmal atrial fibrillation -acceptable rate control presently -continue Eliquis -adjust therapies as clinically indicated DNR/DNI Eliquis. ongoing hospitalization for IV antibiotics to treat aspiration pneumonia pending evaluation of G-tube feeding tolerance. Time Spent With Patient Time: Total time managing care of this patient today ____ minutes. Quality Stroke Does the patient have a stroke diagnosis?: No VTE Prior VTE?: No VTE Risk Level:: Medical - moderate - high VTE Device Contraindication: N/A - Device Ordered VTE Drug Contraindication: Treatment Not Tolerated
[2023-03-25] MEDS: 0.9 % Sodium Chloride 1,000 ML 999 ML IVCONT ×2 (18:52→20:28)
--- NOTE | 2023-03-25 20:57 | PC.NURSE ---
Assumed care for patient at 190, pt accepted to ICU, bed placement at approx 1944. Report given to Stuart RN at approx 2029. 2nd NS Bolus given as ordered. TF continue to be on hold per day team. Patient transferred down to ICU at approx 2039.
[2023-03-25] MEDS: Piperacillin Sodium/Tazobactam 4.5 GM in 0.9 % Sodium Chloride 100 ML IV (21:23)
--- NOTE | 2023-03-25 21:46 | P.CONCC_ITS ---
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 ? The patient was originally admitted to this hospital ICU on 03/20/2023 due to severe sepsis without shock in the setting of a nosocomial versus aspiration pneumonia, he had been hypoxic in due to concerns for airway protection he had been intubated, he had require pressors at the time and was started on Zosyn IV, vancomycin. ?Subsequently had been extubated on 03/21/2023, pressors were discontinued and the patient was transferred up to the floor; where he has been seen by infectious disease who recommended finishing 5 days worth of Zosyn and continuing with antifungal for a total of 21 days. ?Has been treated with Reglan resulting in good output from his colostomy. ? However he ?presents to us via consult from the floor as the patient has ongoing hypotension for the past 24 hours.? He has remained afebrile since 13:00 on 03/24/2023, however became hypotensive around 19:00 on the same date, IV fluids and albumin had been given without much improvement.? Patient is unable to communicate any symptomatology, review of his records show me that he has been becoming more and more anemic however we do not have a CBC in the last 2 days, he appears pale, will transfer to the ICU for further investigation care. ? ROS:? Unable to obtain ? Past Medical History:? As above ? Past Surgical History:? As above ? Family history:? Noncontributory ? Social History:? Lives at a local retirement facility ([facility]), per chart he is a former tobacco user, no history of drug or alcohol use. ? CODE STATUS: DNR/DNI ? Allergies: NKDA ? Home Medications: See Med Rec ? PHYSICAL EXAM: VS: ?86/52, 69, 15, 94, 98.1 F. General:? Alert but no oriented. ?Unable to follow commands Skin:? Intact, no lesions, edema, erythema, clubbing or cyanosis.? No ulcers. HEENT:? Head is normocephalic, atraumatic, pupils equal round reactive to light accommodation bilaterally.? Extraocular movements appear intact.? Buccal mucosa is moist, Neck is supple without lymphadenopathy. Cardiac:? Clear S1-S2, no murmurs rubs or gallops. Pulmonary:? Clear to auscultation, no wheezes, rales or rhonchi. Abdomen:? Protuberant, positive bowel sounds in all 4 quadrants.? Soft, nontender, . Musculoskeletal:? Unable to move extremities upon request, passive range of motion of all 4 extremities at the major joints reveal no cogwheeling, no crepitus, there is no leg edema and no asymmetry. Neurologic:? As above, otherwise unable to assess.? Vascular:? 2+ pulses upper and lower extremities distally. ?Less than 2 seconds capillary refill finger and toes bilaterally ? SIGNIFICANT LABORATORY DATA:? Reviewed, new ones will be obtained ? REVIEW OF IMAGES: ?All admission images reviewed New chest x-ray 03/24/2023 ?impression shows improving bilateral airspace disease probably representing improving pneumonia ? EKG REVIEW:? Admission EKG to my view shows sinus rhythm rate of 90 beats per minute with first-degree AV block.? Anterior lateral ST and T-wave changes of unknown etiology or chronicity.? This was compared to 03/03/2023 at which time the rhythm was atrial fibrillation. ? ASSESSMENT : 1. Hypotension due to a known Jessica septic process and new hypovolemia in the setting of anemia 2. Hypovolemia due to acute on chronic anemia in the setting of upper GI bleed 3. Suspected upper GI bleed in the setting of underlying history of Rivers's esophagus and Eliquis administration via the G-tube 4. Illness related thrombocytopenia 5. Chronic coagulopathy with INR of 2.3 rule out vitamin K deficiency given lack of known liver disease 6. Mild metabolic acidosis without lactic acidosis 7. Borderline hypomagnesemia 8. Acute hypophosphatemia 9. Improving nosocomial pneumonia of bilateral lungs 10. Multifactorial metabolic encephalopathy rule out hepatic involvement 11. Pseudo hypocalcemia with corrected calcium of 8.5 ? PLAN OF CARE: Patient was transferred to the ICU given his ongoing hypotension despite of IV fluids and albumin administration.? Patient has not had a CBC in 2 days, given that he is on Eliquis, and that he has been receiving small doses of ibuprofen via G-tube, has history of Rivers's esophagus and has a guaiac-positive stool study from 2 weeks ago, my concern is that he may be having an upper GI bleed.? Stat labs will be done, if needed transfusion of packed red blood cells, Protonix 80 mg IV load followed by a drip. ?Electrolyte replacement, further albumin replacement, if the above is verified, GI consult; will check a random cortisol level to rule out possible adrenal insufficiency. Coagulation profile shows an INR of 2.3, will give vitamin K x1, replace magnesium, phosphorus and potassium.? Continue with Zosyn until tonight for he has been seen by infectious disease who recommended a total of 5 day course of antibiotics along with 21 days total of Caspofungin, awaiting final culture. ?Will add ammonia levels. ? GI PROPHYLAXIS: ?On IV Protonix ggt DVT PROPHYLAXIS: ?Hold Eliquis, apply pneumatic stockings ? Clinical update 2230 White blood cells 5.1, hemoglobin 7.2, hematocrit 22.5 (baseline H&H upon admission was 11.2 and 34.5), platelets 157 there is no left shift.? INR 2.2.? Sodium 142, potassium 3.4, chloride 114, carbon dioxide 20, anion gap 11, BUN 6, creatinine 0.69, lactic acid 1.4, phosphorus 2.3, magnesium 1.7, albumin 3.5. At this point given that his lactic acid is normal, no concern about hypotension representing a worsening sepsis, rather I do believe this is directly related to volume. Will go ahead with transfusion of 2 units of packed red blood cells, vitamin K administration, IV PPI and GI consult, will recheck his stool for occult blood. Clinical update # 2 02:00 03/26/2023 patient's blood pressure has not improved significantly after some albumin and 1 unit packed red blood cells currently his blood pressure is 118/64, heart rate 70, respirations 22, O2 sat 98% on room air, his urine output is 160 cc an hour, lungs are clear and otherwise appears well. Will continue to monitor recheck labs in the morning. I also did discuss the case with the torsion spring coiling machine setter coroner technician Dr. Lauren who is aware of the situation in case the patient bleeds acutely, otherwise the patient will be seen by Dr. Jairo Ledesma who had seen him about a month ago. ? ? Critical care time used for critical evaluation of this patient, diagnosis, treatment and coordination of care, review her records and documentation TOTAL CRITICAL CARE TIME 90 MIN . discussion and coordination with consultants, completely separate from any procedures performed. Patient's care was discussed in detail with Dr. Jaeger.? She is aware of all the above as well as the plan of care for this patient. 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 Paranoid schizophrenia Hyperlipidemia Hypothyroidism Anemia Encephalopathy Drug induced subacute dyskinesia Cognitive impairment Exotropia, alternating, with A pattern Hypermetropia of both eyes Dysphagia Boutonniere deformity of finger COVID-19 Type 2 diabetes mellitus COPD (chronic obstructive pulmonary disease) Dementia Family History Family history: reviewed and not pertinent Surgical History Surgical History Presence of aortocoronary bypass graft Social History Social History Household Members: Unknown / Unable to assess Household Members Other:: [facility] Housing: Correction Housing Other:: [facility] Do you presently have visiting nurse or other home services: No Unable to assess alcohol history related to: Unable to respond Patient Tobacco Use Status: Former Tobacco user Tobacco use type: Cigarette Years Smoked: SURAJ Smoked in Last 30 Days: No Use of substances other than those prescribed or required for medical reasons: Unable to respond Currently Displaying Signs/Symptoms of Drug Intoxication Withdrawal: No Advance Directives: Yes Advance Directives on File: Yes Advance Directives Date on File: 12/14/21 Do you have thoughts of harming others: None Do you have a plan to hurt others: No Plan Recently lost weight without trying: Unsure Nutrition Risks: On aspiration precautions Poor oral hygiene: Yes service: No Current occupational status: disabled Meds Allergies Allergy/AdvReac Type Severity Reaction Status Date / Time No Known Allergies Allergy Unverified 04/05/20 19:36 [No Known Allergies*] Active Medications: Current Medications Acetaminophen (Acetaminophen 325 Mg Tablet) 650 mg G-TUBE Q6H PRN PRN Reason: Fever Last Admin: 03/25/23 09:29 Dose: 650 mg Apixaban (Apixaban 5 Mg Tablet) 5 mg PO BID COLIN Last Admin: 03/25/23 21:22 Dose: 5 mg Dextrose (Dextrose 50 % 25 Gm/50 Ml Syringe) 25 gm IVPUSH STAT PRN; Protocol PRN Reason: Hypoglycemia Last Admin: 03/22/23 06:01 Dose: 25 gm Famotidine (Famotidine 20 Mg Tablet) 20 mg G-TUBE BID COLIN Last Admin: 03/25/23 21:22 Dose: 20 mg Piperacillin Sod/Tazobactam (Sod 4.5 gm/ Sodium Chloride) 100 mls @ 200 mls/hr IV Q8H COLIN Last Admin: 03/25/23 21:23 Dose: 200 mls/hr Caspofungin 50 mg/ Sodium (Chloride) 250 mls @ 250 mls/hr IV Q24H COLIN Last Infusion: 03/25/23 18:45 Dose: Infused Insulin Human Lispro (Insulin Lispro 100 Unit/Ml 3 Ml Vial) 0 unit SUBCUT Q6H COLIN; Protocol Last Admin: 03/25/23 17:37 Dose: 4 unit Levalbuterol HCl (Levalbuterol Hcl 1.25 Mg/3 Ml Vial.Neb) 1.25 mg INHALE RTID COLIN Last Admin: 03/25/23 19:27 Dose: 1.25 mg Metoclopramide HCl (Metoclopramide Hcl 10 Mg/2 Ml Vial) 10 mg IVPUSH Q6H COLIN Last Admin: 03/25/23 21:22 Dose: 10 mg Home Medications Medication Instructions Recorded Confirmed Last Taken Type insulin glargine 100 unit/mL (3 20 unit subcut BEDTIME 12/13/21 03/20/23 12/12/21 History mL) subcutaneous pen (Lantus Solostar U-100 Insulin) lactulose 10 gram/15 mL oral 30 ml PO DAILY 12/13/21 03/20/23 12/12/21 History solution nicotine 7 mg/24 hr daily 1 patch transdermal Q24H PRN 12/27/22 03/20/23 Unknown History transdermal patch Smoking Cessation sennosides 8.6 mg tablet (senna) 8.6 mg PO DAILY PRN Constipation 12/27/22 03/20/23 Unknown History metoprolol tartrate 25 mg tablet 12.5 mg PO BID 02/20/23 03/20/23 Unknown History amiodarone 200 mg tablet 200 mg G-tube DAILY 03/20/23 03/20/23 Unknown History Physical Exam 2 Vital Signs: Vital Signs: Last Vital Signs Temp 98.0 F 03/25/23 21:20 Pulse 72 03/25/23 21:20 Resp 16 03/25/23 21:20 BP 96/51 L 03/25/23 21:20 Pulse Ox 98 03/25/23 21:20 O2 Del Method Room Air 03/25/23 21:20 O2 Flow Rate 30 03/20/23 13:00 FiO2 21 03/21/23 11:53 BMI result Body Mass Index 25.7 Results Labs 03/26/23 12:04 03/26/23 05:40 Labs: BMP 03/25/23 05:38 Potassium 3.4 Creatinine 0.75 Liver Function 03/25/23 Range/Units 05:38 Albumin 3.2 L (3.5-5.0) g/dL Microbiology Microbiology Results: Microbiology 03/24/23 14:23 Blood - Venous Blood Culture - Preliminary No growth after 24 hours. 03/24/23 14:23 Blood - Venous Blood Culture - Preliminary No growth after 24 hours. 03/20/23 02:52 Blood - Venous Blood Culture - Preliminary Yeast 03/20/23 02:52 Blood - Venous Blood Culture - Final No growth after 5 days. Assessment and Plan Time Spent With Patient Time: Total time managing care of this patient today ____ minutes.
[2023-03-25 22:05] LABS: MANUAL DIFF FLAG NO
[2023-03-25 22:06] LABS: Basophils Percent Auto 0.4 % (0-2); Eosinophils Absolute Auto 0.1 X10*3/uL (0.0-0.4); Hematocrit 22.5 % (42.0-52.0); Hemoglobin 7.2 g/dl (14.0-18.0); Imm Gran Abs Auto 0.03 X10*3/uL (0.00-0.03); Imm Gran Pct Auto 0.6 % (0.0-0.4); Lymphocytes Absolute Auto 1.8 X10*3/uL (1.2-4.9); Lymphocytes Percent Auto 35.4 % (20-40); Mean Corpuscular Hemoglobin 26.9 pg (27.0-33.0); Mean Platelet Volume 10.5 fL (9.4-12.4); Monocytes Absolute Auto 0.7 X10*3/uL (0.1-1.2); Monocytes Percent Auto 13.3 % (2-11); Neutrophils Absolute Auto 2.5 x10*3/uL (2.0-8.3); Neutrophils Percent Auto 49.3 % (45-73); Platelet Count 157 X10*3/uL (160-400); Red Blood Count 2.68 X10*6/uL (4.60-5.80); White Blood Count 5.1 X10*3/uL (4.8-10.8)
[2023-03-25 22:19] LABS: Alanine Aminotransferase 13 U/L (0-40); Albumin Level 3.5 g/dL (3.5-5.0); Alkaline Phosphatase 65 U/L (39-117); Anion Gap 11 (12-20); Aspartate Amino Transferase 19 U/L (5-37); Bilirubin Total 0.5 mg/dL (0.0-1.0); Blood Urea Nitrogen 6 mg/dL (9-16); Calcium 8.1 mg/dL (8.4-10.2); Carbon Dioxide 20 mmol/L (22-29); Chloride 114 mmol/L (96-108); Estimated Glomerular Filt Rate > 60; Glucose Random 84 mg/dL (60-115); Potassium 3.4 mmol/L (3.3-5.1); Sodium 142 mmol/L (135-145); Total Protein 5.7 g/dL (6.5-8.0)
[2023-03-25] MEDS: Pantoprazole Sodium 40 MG/10 ML VIAL 80 MG IVPUSH (22:54)
[2023-03-25] MEDS: Sodium Bicarbonate 8.4% 50 MEQ/50 ML VIAL 100 MEQ IVPUSH (22:54)
[2023-03-25] MEDS: Potassium Chloride Packet 20 MEQ PACKET 40 MEQ PO (22:54)
[2023-03-25 23:35] LABS: Glucose, Whole Blood 87 mg/dL (60-115)
[2023-03-25 23:58] LABS: INTERNATIONAL NORM RATIO 2.2 (0.9-1.1); Prothrombin Time 26.6 SEC (11.1-13.3)
[2023-03-26] VITALS (26 sets, daily range): BP systolic 87–128; BP diastolic 47–65; PULSE 66–91; RESP 12–28; TEMP 36.1–36.7; O2SAT 94–99; BMI 25.8
[2023-03-26 00:01] LABS: Partial Thromboplastin Time 24.4 SEC (26.0-36.4)
[2023-03-26] MEDS: Albumin Human 25 % 100 ML 200 ML IV (00:04)
[2023-03-26] MEDS: Pantoprazole Sodium 80 MG in 0.9 % Sodium Chloride 80 ML 10 MG IV ×2 (00:12→10:05)
--- NOTE | 2023-03-26 00:19 | PC.NURSE ---
Addendum entered by Joseph Nguyen RN 03/26/23 00:29: Major catheter (Coude, 30 cc balloon and 16 Fr) was drained for 550 ccs pale yellow urine since arrival to ICU, and colostomy emptied for about 200 ccs of thick pasty light brown stool . Original Note: Assumed care at 20:45, patient arrived from med/tele. Patient is alert to drowsy and easily arousable to voice. Only oriented to name, date of , and his room number at [facility]. Patient follows commands, moves all extremities, denies pain, equal bee rancher strength. Initially ? of right sided facial droop on arrival, but patient can correct this and has history of right sided ptosis and Palsy (spasm) of conjugate gaze. PERRL. Patient does continuously kick both legs in a rhythmic steady motion. Patient with small amount of oral secretions suctioned, has a loose moist cough with minimal secretions noted. Patient LS are diminished throughout, on room air, breathing shallow respirations unlabored. Patient with distant heart sounds and hypotensive blood pressures as low as 80's/40's. PA aware, Patient completed 2 liter NS boluses and albumin per emar, and hypotension was refractory to this treatment. Patient was medicated per emar including Eliquis upon arrival. Patient also arrived with TF on hold due to reported high residual of 250 ccs at 1000 per nursing report, and discussed with PA current residual of 50 ccs light green thin secretions with sediment, and per PA started TF slowly at 10 cc/hour, and also gave 120 ccs of water flush per diet order. Labs checked per PA and question of GIB with respect to recent drop in Hgb, and history of +OB stool, so TF stopped per PA, patient medicated with 2 amps bicarb, 80 mg IVP protonix, 40 MeQ Peg tube Kcl, and 1/2 bottles of albumin. 20G placed in RUE with good blood return, and 22G present in Left hand. Some pitting edema to distal L forearm. Redness to buttocks with coccygeal dressing intact. Report given to night nurse.
[2023-03-26 01:07] LABS: Phosphorus 2.3 mg/dL (2.7-4.5)
[2023-03-26] MEDS: Magnesium Sulfate/H2O 2 GM/50 ML PIGGYBACK IV (02:04)
[2023-03-26] MEDS: Sodium,Potassium Phosphates POWD.PACK 2 PACKET PO (02:44)
[2023-03-26 03:30] LABS: OBS Int Ctl Valid YES; OBS1 NEGATIVE (NEGATIVE)
[2023-03-26 05:44] LABS: VBG Base Excess -0.6 mmol/L; VBG HCO3 21 mmol/L (22-26); VBG pCO2 27 mmHg; VBG pO2 83 mmHg
[2023-03-26 06:18] LABS: Glucose, Whole Blood 107 mg/dL (60-115)
[2023-03-26] MEDS: Metoclopramide HCl 10 MG TABLET PO ×3 (06:38→17:04)
[2023-03-26 06:39] LABS: Alanine Aminotransferase 15 U/L (0-40); Albumin Level 4.2 g/dL (3.5-5.0); Alkaline Phosphatase 68 U/L (39-117); Anion Gap 12 (12-20); Aspartate Amino Transferase 18 U/L (5-37); Bilirubin Total 1.2 mg/dL (0.0-1.0); Blood Urea Nitrogen 4 mg/dL (9-16); Calcium 9.1 mg/dL (8.4-10.2); Carbon Dioxide 22 mmol/L (22-29); Chloride 114 mmol/L (96-108); Creatinine Clr Calc Pharmacy 100.2; Estimated Glomerular Filt Rate > 60; Glucose Random 118 mg/dL (60-115); Potassium 3.8 mmol/L (3.3-5.1); Sodium 144 mmol/L (135-145); Total Protein 6.3 g/dL (6.5-8.0)
[2023-03-26 06:42] LABS: Basophils Percent Auto 0.5 % (0-2); Eosinophils Absolute Auto 0.1 X10*3/uL (0.0-0.4); Eosinophils Percent Auto 0.7 % (0-4); Hematocrit 29.1 % (42.0-52.0); Hemoglobin 9.5 g/dl (14.0-18.0); Imm Gran Abs Auto 0.04 X10*3/uL (0.00-0.03); Imm Gran Pct Auto 0.5 % (0.0-0.4); Lymphocytes Absolute Auto 2.3 X10*3/uL (1.2-4.9); Lymphocytes Percent Auto 25.4 % (20-40); MANUAL DIFF FLAG SCAN; Mean Corpuscular HGB Conc 32.6 g/dl (31.0-36.0); Mean Corpuscular Hemoglobin 27.9 pg (27.0-33.0); Mean Corpuscular Volume 85.3 fL (80.0-98.0); Mean Platelet Volume 10.9 fL (9.4-12.4); Monocytes Percent Auto 11.1 % (2-11); Neutrophils Absolute Auto 5.5 x10*3/uL (2.0-8.3); Neutrophils Percent Auto 61.8 % (45-73); Platelet Count 173 X10*3/uL (160-400); Red Blood Count 3.41 X10*6/uL (4.60-5.80); Red Cell Distribution Width 15.9 % (11.0-16.0); SCAN SMEAR FLAG 1; White Blood Count 8.9 X10*3/uL (4.8-10.8)
[2023-03-26 06:44] LABS: SLIDE REVIEW VERIFIED
[2023-03-26 08:06] LABS: Venous Blood Gas Refer to POC result
[2023-03-26] MEDS: levalbuterol HCL 1.25 MG/3 ML VIAL.NEB INHALE ×3 (08:24→19:58)
[2023-03-26 08:58] LABS: OBS Int Ctl Valid YES; OBS1 NEGATIVE (NEGATIVE)
[2023-03-26 09:23] LABS: Ammonia 33 umol/L (13-55)
--- NOTE | 2023-03-26 10:55 | MHC.CLN ---
F/U PT TRANSFERRED TO ICU TF CURRENTLY ON HOLD R/T HIGH RESIDUALS IF TF TO RESTART; RECOMMEND JEVITY 1.0 AT 20ML/HR AND INCREASE BY 10ML Q 4 HRS UNTIL MAX GOAL IS ACHIEVED MAX GOAL RATE JEVITY 1.0 AT 85ML/HR WITH 120ML Q 8 HR TO PROVIDE 2162KCALS (35KCALS/KG), 90G PROTEIN (1.5G/KG), 2063ML TOTAL WATER FROM FORMULA AND FLUSHES (33ML/KG) MONITOR TOLERANCE, RESIDUALS, BS AND LYTES FOLLOWING WITH TEAM
--- NOTE | 2023-03-26 11:07 | P.PNCC_ITS ---
Subjective Subjective Date of Service: 03/26/23 Interval History: improvement of hypotension with fluid resuscitation, transfusions Critical Care Time (minutes): 90 Physical Exam 2 Vital Signs: Vital Signs: Last Vital Signs Temp 98.0 F 03/26/23 09:00 Pulse 73 03/26/23 10:00 Resp 26 H 03/26/23 10:00 BP 99/60 03/26/23 10:00 Pulse Ox 94 03/26/23 10:00 O2 Del Method Room Air 03/26/23 10:00 O2 Flow Rate 30 03/20/23 13:00 FiO2 21 03/21/23 11:53 BMI result Body Mass Index 25.8 Const: General: cooperative, comfortable and no acute distress O rientation/consciousness: No oriented to person, No oriented to place and No oriented to time HEENT: Head: Yes normal to inspection, Yes normocephalic and Yes atraumatic Eyes: General: appearance normal, both eyes and all related structures P upils: Equal, round and reactive pupils present Neck: Neck: Yes normal visual inspection and Yes supple Chest: Chest palpation & inspection: normal inspection of the chest Resp: Effort & Inspection: normal respiratory effort Auscultation: clear to auscultation bilaterally Cardio: Rate: regular rate Rhythm: regular rhythm GI: Other: soft, no appreciable tenderness to palpation throughout; appreciable G tube, clean dry, intact; midline incision with overlying bandage with dry, yellow discharge Inspection: Yes normal to inspection : General: Yes deferred Skin: General skin exam: no rashes or lesions noted Neuro: Other: speaks simple sentences, such as asking for water; easily redirectable; no appreciable gross neurological deficits General: No oriented to person, No oriented to place and No oriented to time Cranial nerves: Yes Equal, round and reactive pupils present Extrem: General: Yes normal to inspection, Yes no clubbing, cyanosis or edema, Yes clubbing, Yes cyanosis and Yes edema Objective Data Labs 03/26/23 05:40 03/26/23 05:40 Labs: Laboratory Results - last 24 hr 03/25/23 03/25/23 03/25/23 05:38 11:54 14:02 WBC RBC Hgb Hct MCV MCH MCHC RDW Plt Count MPV Immature Gran % (Auto) Neut % (Auto) Lymph % (Auto) [place] % (Auto) Eos % (Auto) Baso % (Auto) Lymph # (Auto) [place] # (Auto) Eos # (Auto) Baso # (Auto) Abs Immat Gran (auto) Absolute Neuts (auto) Absolute Nucleated RBC Nucleated RBC % (auto) Smear Tech's Comments PT INR APTT VBG pH VBG pCO2 VBG pO2 VBG HCO3 VBG O2 Saturation VBG Base Excess Sodium Potassium Chloride Carbon Dioxide Anion Gap BUN Creatinine Estim Creat Clear Calc Estimated GFR POC Glucose 167 H 194 H Random Glucose Lactic Acid Calcium Phosphorus Total Bilirubin AST ALT Alkaline Phosphatase Ammonia Total Protein Albumin 3.2 L Random Cortisol Stool Occult Blood Blood Type Antibody Screen Crossmatch 03/25/23 03/25/23 03/25/23 16:09 17:28 22:00 WBC 5.1 RBC 2.68 L D Hgb 7.2 L Hct 22.5 L D MCV 84.0 MCH 26.9 L MCHC 32.0 RDW 16.0 Plt Count 157 L MPV 10.5 Immature Gran % (Auto) 0.6 H Neut % (Auto) 49.3 Lymph % (Auto) 35.4 [place] % (Auto) 13.3 H Eos % (Auto) 1.0 Baso % (Auto) 0.4 Lymph # (Auto) 1.8 [place] # (Auto) 0.7 Eos # (Auto) 0.1 Baso # (Auto) 0.0 Abs Immat Gran (auto) 0.03 Absolute Neuts (auto) 2.5 Absolute Nucleated RBC 0.000 Nucleated RBC % (auto) 0.0 Smear Tech's Comments PT INR APTT VBG pH VBG pCO2 VBG pO2 VBG HCO3 VBG O2 Saturation VBG Base Excess Sodium 142 Potassium 3.4 Chloride 114 H Carbon Dioxide 20 L Anion Gap 11 L BUN 6 L Creatinine 0.69 Estim Creat Clear Calc 106.0 Estimated GFR > 60 POC Glucose 201 H Random Glucose 84 Lactic Acid 1.4 Calcium 8.1 L D Phosphorus 2.3 L Total Bilirubin 0.5 AST 19 ALT 13 Alkaline Phosphatase 65 Ammonia Total Protein 5.7 L Albumin 3.5 Random Cortisol 7.0 Stool Occult Blood Blood Type Antibody Screen Crossmatch 03/25/23 03/25/23 03/25/23 22:53 23:31 23:45 WBC RBC Hgb Hct MCV MCH MCHC RDW Plt Count MPV Immature Gran % (Auto) Neut % (Auto) Lymph % (Auto) [place] % (Auto) Eos % (Auto) Baso % (Auto) Lymph # (Auto) [place] # (Auto) Eos # (Auto) Baso # (Auto) Abs Immat Gran (auto) Absolute Neuts (auto) Absolute Nucleated RBC Nucleated RBC % (auto) Smear Tech's Comments PT 26.6 H INR 2.2 H APTT 24.4 L D VBG pH VBG pCO2 VBG pO2 VBG HCO3 VBG O2 Saturation VBG Base Excess Sodium Potassium Chloride Carbon Dioxide Anion Gap BUN Creatinine Estim Creat Clear Calc Estimated GFR POC Glucose 87 Random Glucose Lactic Acid Calcium Phosphorus Total Bilirubin AST ALT Alkaline Phosphatase Ammonia Total Protein Albumin Random Cortisol Stool Occult Blood Blood Type O Positive Antibody Screen NEGATIVE Crossmatch See Detail 03/26/23 03/26/23 03/26/23 03:00 05:39 05:40 WBC 8.9 RBC 3.41 L D Hgb 9.5 L D Hct 29.1 L D MCV 85.3 MCH 27.9 MCHC 32.6 RDW 15.9 Plt Count 173 MPV 10.9 Immature Gran % (Auto) 0.5 H Neut % (Auto) 61.8 Lymph % (Auto) 25.4 [place] % (Auto) 11.1 H Eos % (Auto) 0.7 Baso % (Auto) 0.5 Lymph # (Auto) 2.3 [place] # (Auto) 1.0 Eos # (Auto) 0.1 Baso # (Auto) 0.0 Abs Immat Gran (auto) 0.04 H Absolute Neuts (auto) 5.5 Absolute Nucleated RBC 0.000 Nucleated RBC % (auto) 0.0 Smear Tech's Comments VERIFIED PT INR APTT VBG pH 7.50 H VBG pCO2 27 VBG pO2 83 VBG HCO3 21 L VBG O2 Saturation 98.0 VBG Base Excess -0.6 Sodium 144 Potassium 3.8 Chloride 114 H Carbon Dioxide 22 Anion Gap 12 BUN 4 L Creatinine 0.73 Estim Creat Clear Calc 100.2 Estimated GFR > 60 POC Glucose Random Glucose 118 H Lactic Acid Calcium 9.1 D Phosphorus Total Bilirubin 1.2 H AST 18 ALT 15 Alkaline Phosphatase 68 Ammonia Total Protein 6.3 L Albumin 4.2 Random Cortisol Stool Occult Blood NEGATIVE Blood Type Antibody Screen Crossmatch 09/07/23 09/07/23 09/07/23 06:13 07:39 09:04 WBC RBC Hgb Hct MCV MCH MCHC RDW Plt Count MPV Immature Gran % (Auto) Neut % (Auto) Lymph % (Auto) [place] % (Auto) Eos % (Auto) Baso % (Auto) Lymph # (Auto) [place] # (Auto) Eos # (Auto) Baso # (Auto) Abs Immat Gran (auto) Absolute Neuts (auto) Absolute Nucleated RBC Nucleated RBC % (auto) Smear Tech's Comments PT INR APTT VBG pH VBG pCO2 VBG pO2 VBG HCO3 VBG O2 Saturation VBG Base Excess Sodium Potassium Chloride Carbon Dioxide Anion Gap BUN Creatinine Estim Creat Clear Calc Estimated GFR POC Glucose 107 Random Glucose Lactic Acid Calcium Phosphorus Total Bilirubin AST ALT Alkaline Phosphatase Ammonia 33 Total Protein Albumin Random Cortisol Stool Occult Blood NEGATIVE Blood Type Antibody Screen Crossmatch Microbiology Microbiology Results: Microbiology 03/20/23 02:52 Blood - Venous Blood Culture - Preliminary Jessica glabrata 03/24/23 14:23 Blood - Venous Blood Culture - Preliminary Prelim: Yeast Gram Stain only 03/24/23 14:23 Blood - Venous Blood Culture - Preliminary Prelim: Yeast Gram Stain only 03/20/23 02:52 Blood - Venous Blood Culture - Final No growth after 5 days. Progress Note: A&P Assessment and plan (1) Fungemia: Status: Acute (2) S/P colectomy: Status: Acute (3) Acute respiratory failure with hypoxia: Status: Acute (4) Severe sepsis: Status: Acute (5) SYEDA (acute kidney injury): Status: Acute Plan Patient is a 62 Y M with metabolic syndrome, atrial fibrillation, dementia, prior sigmoid volvulus, s/p sigmodectomy with ostomy placement, initially presenting 03/20 w/ pnuemonia, c/b septic shock, intubated, extubated, transferred to floor; hospital course c/b fungemia, started on caspofungin; ICU consulted for hypotension N: baseline dementia; upon initial evaluation, appeared lethargic, now significantly more alert, asking for water CV: hypotension; initial concern for GI bleeding in setting of anemia, started on empiric pantoprazole gtt, transitioned to BID dosing pending gastroenterology recommendations R: no acute issues GI: initial concern for GI bleeding, as described above; guiac negative x2; of note, patient s/p sigmoidectomy w/ ostomy placement w/ moderate ostomy output; to start LR at 150mL/hr H: anemia, s/p 2 pRBC with appropriate response; elevated INR of unclear etiology, given vitamin K; continue to monitor ID: [email or web address], to continue caspofungion; appreciate ID recommendations E: DM, hyperglycemia, on insulin sliding scale Quality Stroke Does the patient have a stroke diagnosis?: No VTE Prior VTE?: No VTE Risk Level:: Medical - moderate - high VTE Device Contraindication: N/A - Device Ordered VTE Drug Contraindication: Treatment Not Tolerated
[2023-03-26] MEDS: Lactated Ringers 1,000 ML 150 ML IVCONT ×2 (11:45→17:02)
[2023-03-26 12:08] LABS: Glucose, Whole Blood 137 mg/dL (60-115)
[2023-03-26 12:28] LABS: MANUAL DIFF FLAG NO
--- NOTE | 2023-03-26 12:36 | PM.UROCN ---
History of Present Illness Consult details Consult date: 03/26/23 Narrative: 62M PMH CAD s/p CABG, paroxysmal afib, COPD, DM2, paranoid schizophrenia, hypothyroid, from [facility] seen and admitted on 03/20/23 for lethargy and shortness of breath and noted to have fever 103.1. He was recently discharged on 03/17 after 3 weeks of admission for sigmoid volvulus. Urology Called due to urinary retention. 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 Paranoid schizophrenia Hyperlipidemia Hypothyroidism Anemia Encephalopathy Drug induced subacute dyskinesia Cognitive impairment Exotropia, alternating, with A pattern Hypermetropia of both eyes Dysphagia Boutonniere deformity of finger COVID-19 Type 2 diabetes mellitus COPD (chronic obstructive pulmonary disease) Dementia Family History Family history: reviewed and not pertinent Surgical History Surgical History Presence of aortocoronary bypass graft Social History Social History Household Members: Unknown / Unable to assess Household Members Other:: [facility] Housing: [facility] Other:: [facility] Do you presently have visiting nurse or other home services: No Unable to assess alcohol history related to: Unable to respond Patient Tobacco Use Status: Former Tobacco user Tobacco use type: Cigarette Years Smoked: SURAJ Smoked in Last 30 Days: No Use of substances other than those prescribed or required for medical reasons: Unable to respond Currently Displaying Signs/Symptoms of Drug Intoxication Withdrawal: No Advance Directives: Yes Advance Directives on File: Yes Advance Directives Date on File: 12/14/21 Do you have thoughts of harming others: None Do you have a plan to hurt others: No Plan Recently lost weight without trying: Unsure Nutrition Risks: On aspiration precautions Poor oral hygiene: Yes service: No Current occupational status: disabled Meds Allergies Allergy/AdvReac Type Severity Reaction Status Date / Time No Known Allergies Allergy Unverified 04/05/20 19:36 [No Known Allergies*] Active Medications: Current Medications Acetaminophen (Acetaminophen 325 Mg Tablet) 650 mg G-TUBE Q6H PRN PRN Reason: Fever Last Admin: 03/25/23 09:29 Dose: 650 mg Dextrose (Dextrose 50 % 25 Gm/50 Ml Syringe) 25 gm IVPUSH STAT PRN; Protocol PRN Reason: Hypoglycemia Last Admin: 03/22/23 06:01 Dose: 25 gm Caspofungin 50 mg/ Sodium (Chloride) 250 mls @ 250 mls/hr IV Q24H [facility] Last Infusion: 03/25/23 18:45 Dose: Infused Lactated Ringer's (Lr) 1,000 mls @ 150 mls/hr IVCONT .Q6H40M [facility] Insulin Human Lispro (Insulin Lispro 100 Unit/Ml 3 Ml Vial) 0 unit SUBCUT Q6H [facility]; Protocol Last Admin: 03/26/23 12:18 Dose: Not Given Levalbuterol HCl (Levalbuterol Hcl 1.25 Mg/3 Ml Vial.Neb) 1.25 mg INHALE RTID [facility] Last Admin: 03/26/23 08:24 Dose: 1.25 mg Metoclopramide HCl (Metoclopramide Hcl 10 Mg Tablet) 10 mg PO Q6H [facility] Last Admin: 03/26/23 11:33 Dose: 10 mg Pantoprazole Sodium (Pantoprazole Sodium 40 Mg/10 Ml Vial) 40 mg IVPUSH BID@0630,1630 [facility] Home Medications Medication Instructions Recorded Confirmed Last Taken Type insulin glargine 100 unit/mL (3 20 unit subcut BEDTIME 12/13/21 03/20/23 12/12/21 History mL) subcutaneous pen (Lantus Solostar U-100 Insulin) lactulose 10 gram/15 mL oral 30 ml PO DAILY 12/13/21 03/20/23 12/12/21 History solution nicotine 7 mg/24 hr daily 1 patch transdermal Q24H PRN 12/27/22 03/20/23 Unknown History transdermal patch Smoking Cessation sennosides 8.6 mg tablet (senna) 8.6 mg PO DAILY PRN Constipation 12/27/22 03/20/23 Unknown History metoprolol tartrate 25 mg tablet 12.5 mg PO BID 02/20/23 03/20/23 Unknown History amiodarone 200 mg tablet 200 mg G-tube DAILY 03/20/23 03/20/23 Unknown History Physical Exam Vital Signs: Vital Signs: Last Vital Signs Temp 96.9 F 03/26/23 12:00 Pulse 71 03/26/23 12:00 Resp 20 03/26/23 12:00 BP 106/48 L 03/26/23 12:00 Pulse Ox 95 03/26/23 12:00 O2 Del Method Room Air 03/26/23 12:00 O2 Flow Rate 30 03/20/23 13:00 FiO2 21 03/21/23 11:53 BMI result Body Mass Index 25.8 HEENT: Head: Yes normocephalic and Yes atraumatic Neck: Neck: Yes normal visual inspection Chest: Chest palpation & inspection: normal inspection of the chest Resp: Other: Coarse rhonchi throughout that clear with cough Effort & Inspection: normal respiratory effort GI: Other: Soft nontender nondistended normoactive bowel sounds. Colostomy bag appears to be functioning normally : Other: quinn in place draining yellow colored urine Penis: normal penis Scrotum: scrotum normal Skin: General skin exam: no rashes or lesions noted Extrem: Other: No edema bilaterally General: No pedal edema Psych: Appearance: grossly normal Affect: normal affect Results Labs 03/28/23 06:16 03/27/23 06:00 Labs: Abnormal lab results 03/25/23 03/25/23 03/25/23 Range/Units 05:38 14:02 16:09 RBC (4.60-5.80) X10*6/uL Hgb (14.0-18.0) g/dl Hct (42.0-52.0) % MCH (27.0-33.0) pg Plt Count (160-400) X10*3/uL Immature Gran % (Auto) (0.0-0.4) % [place] % (Auto) (2-11) % Abs Immat Gran (auto) (0.00-0.03) X10*3/uL PT (11.1-13.3) SEC INR (0.9-1.1) APTT (26.0-36.4) SEC VBG pH (7.32-7.43) VBG HCO3 (22-26) mmol/L Chloride (96-108) mmol/L Carbon Dioxide (22-29) mmol/L Anion Gap (12-20) BUN (9-16) mg/dL POC Glucose 194 H 201 H (60-115) mg/dL Random Glucose (60-115) mg/dL Calcium (8.4-10.2) mg/dL Phosphorus (2.7-4.5) mg/dL Total Bilirubin (0.0-1.0) mg/dL Total Protein (6.5-8.0) g/dL Albumin 3.2 L (3.5-5.0) g/dL Crossmatch 03/25/23 03/25/23 03/25/23 Range/Units 22:00 22:53 23:45 RBC 2.68 L D (4.60-5.80) X10*6/uL Hgb 7.2 L (14.0-18.0) g/dl Hct 22.5 L D (42.0-52.0) % MCH 26.9 L (27.0-33.0) pg Plt Count 157 L (160-400) X10*3/uL Immature Gran % (Auto) 0.6 H (0.0-0.4) % [place] % (Auto) 13.3 H (2-11) % Abs Immat Gran (auto) (0.00-0.03) X10*3/uL PT 26.6 H (11.1-13.3) SEC INR 2.2 H (0.9-1.1) APTT 24.4 L D (26.0-36.4) SEC VBG pH (7.32-7.43) VBG HCO3 (22-26) mmol/L Chloride 114 H (96-108) mmol/L Carbon Dioxide 20 L (22-29) mmol/L Anion Gap 11 L (12-20) BUN 6 L (9-16) mg/dL POC Glucose (60-115) mg/dL Random Glucose (60-115) mg/dL Calcium 8.1 L D (8.4-10.2) mg/dL Phosphorus 2.3 L (2.7-4.5) mg/dL Total Bilirubin (0.0-1.0) mg/dL Total Protein 5.7 L (6.5-8.0) g/dL Albumin (3.5-5.0) g/dL Crossmatch See Detail 03/26/23 03/26/23 03/26/23 Range/Units 05:39 05:40 12:05 RBC 3.41 L D (4.60-5.80) X10*6/uL Hgb 9.5 L D (14.0-18.0) g/dl Hct 29.1 L D (42.0-52.0) % MCH (27.0-33.0) pg Plt Count (160-400) X10*3/uL Immature Gran % (Auto) 0.5 H (0.0-0.4) % [place] % (Auto) 11.1 H (2-11) % Abs Immat Gran (auto) 0.04 H (0.00-0.03) X10*3/uL PT (11.1-13.3) SEC INR (0.9-1.1) APTT (26.0-36.4) SEC VBG pH 7.50 H (7.32-7.43) VBG HCO3 21 L (22-26) mmol/L Chloride 114 H (96-108) mmol/L Carbon Dioxide (22-29) mmol/L Anion Gap (12-20) BUN 4 L (9-16) mg/dL POC Glucose 137 H (60-115) mg/dL Random Glucose 118 H (60-115) mg/dL Calcium (8.4-10.2) mg/dL Phosphorus (2.7-4.5) mg/dL Total Bilirubin 1.2 H (0.0-1.0) mg/dL Total Protein 6.3 L (6.5-8.0) g/dL Albumin (3.5-5.0) g/dL Crossmatch Short CBC 03/25/23 03/26/23 Range/Units 22:00 05:40 WBC 5.1 8.9 (4.8-10.8) X10*3/uL Hgb 7.2 L 9.5 L D (14.0-18.0) g/dl Hct 22.5 L D 29.1 L D (42.0-52.0) % Plt Count 157 L 173 (160-400) X10*3/uL BMP 03/25/23 03/26/23 22:00 05:40 Sodium 142 144 Potassium 3.4 3.8 Chloride 114 H 114 H Carbon Dioxide 20 L 22 BUN 6 L 4 L Creatinine 0.69 0.73 Calcium 8.1 L D 9.1 D Liver Function 03/25/23 03/25/23 03/26/23 Range/Units 05:38 22:00 05:40 Total Bilirubin 0.5 1.2 H (0.0-1.0) mg/dL AST 19 18 (5-37) U/L ALT 13 15 (0-40) U/L Alkaline Phosphatase 65 68 (39-117) U/L Albumin 3.2 L 3.5 4.2 (3.5-5.0) g/dL Urine 03/20/23 Range/Units 05:54 Urine Color Yellow Urine Appearance Clear Urine pH 6.0 (5.0-9.0) Ur Specific [place] 1.015 (1.005-1.025) Urine Protein 30 (1+) H (Neg-Trace) mg/dL Urine Glucose (UA) Negative (Negative) mg/dL All other labs normal. Imaging Additional studies: Date of Service: 03/20/23 Procedure(s): CT abdomen pelvis wo IV con Accession Number(s): [id number] cc: Lamonte Jenkins DO; Suman Friedman MD~ EXAMINATION: CT ABDOMEN AND PELVIS WITHOUT CONTRAST CLINICAL INFORMATION: Abdominal pain. Postoperative. COMPARISON: 03/13/2023 TECHNIQUE: Multidetector volumetric imaging was performed from the superior aspect of the liver through the pubic symphysis. Sagittal and coronal reformatted images were obtained on the technologist's workstation. This CT examination was performed using dose optimization techniques as appropriate, variously including the following: *Automated exposure control *Adjustment of mA and/or kV according to patient size (this includes techniques or standardized protocols for targeted exams where dose is matched to indication/reason for exam; i.e. extremities or head) *Use of iterative reconstruction technique DLP: 849 mGy-cm FINDINGS: LUNG BASES: There are bilateral lower lobe infiltrates. There is right lower lobe bronchial opacification. LIVER, GALLBLADDER, AND BILIARY TREE: The liver is normal in size, shape, and attenuation. No focal hepatic lesion or biliary ductal dilatation is present. A single gallstone is noted. PANCREAS: Unremarkable. SPLEEN: Unremarkable. ADRENAL GLANDS: Unremarkable. KIDNEYS AND URETERS: The kidneys are normal in size, shape, and attenuation. No hydronephrosis, hydroureter, or calculi seen. No perinephric stranding. BLADDER: The bladder is trabeculated and thickened. GASTROINTESTINAL TRACT: A left colostomy is noted. There is retained stool. Prominent fluid-filled small bowel loops are noted. A G-tube is in place. The cecum is in the upper abdomen. The appendix is visualized and is within normal limits. There is minimal residual intraperitoneal air. ABDOMINAL WALL: There is a heterogeneous collection along the lower midline abdominal wall musculature measuring up to 5 cm with mild surrounding infiltration. There has been a prior umbilical region hernia repair. LYMPH NODES: Normal. VASCULAR: There is mild atherosclerotic plaque of the abdominal aorta. PELVIC VISCERA: Unremarkable. OSSEOUS STRUCTURES: Unremarkable. CT/CT abdomen pelvis wo IV con IMPRESSION: 1. Bilateral lower lobe infiltrates. Suspect pneumonia. There is right lower lobe bronchial opacification. 2. Left colostomy. 3. Prominent small bowel loops containing fluid possibly related to an ileus. 4. Lower abdominal midline 5 cm collection with some associated gas possibly postoperative hemorrhage. Infection or developing infection is a consideration. A similar finding was present previously. Assessment and Plan (1) Urinary retention: Status: Acute Plan Patient noted to have Large PVR on Bladder scan. Nursing noted was difficult to straight cath the patient Coude quinn able to be placed by nursing staff Cont quinn Time Spent With Patient Time: Total time managing care of this patient today ____ minutes. Procedures Date of Service Date of Service: 03/28/23
[2023-03-26 12:38] LABS: Basophils Percent Auto 0.3 % (0-2); Eosinophils Percent Auto 0.2 % (0-4); Hematocrit 29.3 % (42.0-52.0); Hemoglobin 9.5 g/dl (14.0-18.0); Imm Gran Abs Auto 0.06 X10*3/uL (0.00-0.03); Imm Gran Pct Auto 0.6 % (0.0-0.4); Lymphocytes Absolute Auto 1.8 X10*3/uL (1.2-4.9); Lymphocytes Percent Auto 17.1 % (20-40); Mean Corpuscular HGB Conc 32.4 g/dl (31.0-36.0); Mean Corpuscular Hemoglobin 27.4 pg (27.0-33.0); Mean Corpuscular Volume 84.4 fL (80.0-98.0); Monocytes Absolute Auto 1.1 X10*3/uL (0.1-1.2); Monocytes Percent Auto 10.4 % (2-11); Neutrophils Absolute Auto 7.4 x10*3/uL (2.0-8.3); Neutrophils Percent Auto 71.4 % (45-73); Platelet Count 188 X10*3/uL (160-400); Red Blood Count 3.47 X10*6/uL (4.60-5.80); White Blood Count 10.4 X10*3/uL (4.8-10.8)
[2023-03-26 12:43] LABS: Lactic Acid 0.8 mmol/L (0.5-2.0)
--- NOTE | 2023-03-26 13:18 | PM.GICN ---
History of Present Illness Data of Consult Service Date: 03/26/23 Primary Care Provider: Lamonte Jenkins, DO HPI Reason for consult: Anemia, ? GI bleeding 62M PMH CAD s/p CABG, paroxysmal afib, COPD, DM2, paranoid schizophrenia, hypothyroid, just discharged on 03/17 after 3 weeks of admission for sigmoid volvulus and sepsis and readmitted on 03/20/23 from [facility] senior living with lethargy, fever and shortness of breath (saturating 70% at room air). Hospital course c/b fungemia, started on caspofungin; Pt was transferred to ICU evening of 03/25/23 for hypotension and a decrease in H & H. Initial concern for GI bleeding in setting of anemia and pt was started on empiric pantoprazole gtt and transitioned to BID dosing. Stool was guiac negative x2; of note, patient s/p sigmoidectomy w/ ostomy placement w/ moderate ostomy output. Pt was transfused 2 pRBC with appropriate response Review of Systems Review of Systems: Yes Unobtainable due to mental condition Neurologic: Reports confusion Psychiatric: Psychiatric: Reports confusion [facility] Past Medical History Medical History (Updated 03/27/23 @ 17:46 by Callie Gill MD) Fungemia Candidal urinary tract infection Paroxysmal atrial fibrillation Afib CAD (coronary artery disease) Personal history of transient ischemic attack (TIA), and cerebral infarction without residual deficits Altered mental status Atherosclerotic heart disease of [place] coronary artery without angina pectoris Essential (primary) hypertension Amblyopia, 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 Paranoid schizophrenia Hyperlipidemia Hypothyroidism Anemia Encephalopathy Drug induced subacute dyskinesia Cognitive impairment Exotropia, alternating, with A pattern Hypermetropia of both eyes Dysphagia Boutonniere deformity of finger COVID-19 Type 2 diabetes mellitus COPD (chronic obstructive pulmonary disease) Dementia Family History Family history: reviewed and not pertinent Surgical History Surgical History Presence of aortocoronary bypass graft Social History Social History Household Members: Unknown / Unable to assess Household Members Other:: [facility] Housing: [facility] Housing Other:: [facility] Do you presently have visiting nurse or other home services: No Unable to assess alcohol history related to: Unable to respond Patient Tobacco Use Status: Former Tobacco user Tobacco use type: Cigarette Years Smoked: SURAJ Smoked in Last 30 Days: No Use of substances other than those prescribed or required for medical reasons: Unable to respond Currently Displaying Signs/Symptoms of Drug Intoxication Withdrawal: No Advance Directives: Yes Advance Directives on File: Yes Advance Directives Date on File: 12/14/21 Do you have thoughts of harming others: None Do you have a plan to hurt others: No Plan Recently lost weight without trying: Unsure Nutrition Risks: On aspiration precautions Poor oral hygiene: Yes service: No Current occupational status: disabled Meds Allergies Allergy/AdvReac Type Severity Reaction Status Date / Time No Known Allergies Allergy Unverified 04/05/20 19:36 [No Known Allergies*] Active Medications: Current Medications Acetaminophen (Acetaminophen 325 Mg Tablet) 650 mg G-TUBE Q6H PRN PRN Reason: Fever Last Admin: 03/25/23 09:29 Dose: 650 mg Dextrose (Dextrose 50 % 25 Gm/50 Ml Syringe) 25 gm IVPUSH STAT PRN; Protocol PRN Reason: Hypoglycemia Last Admin: 03/22/23 06:01 Dose: 25 gm Caspofungin 50 mg/ Sodium (Chloride) 250 mls @ 250 mls/hr IV Q24H [facility] Last Infusion: 03/25/23 18:45 Dose: Infused Lactated Ringer's (Lr) 1,000 mls @ 150 mls/hr IVCONT .Q6H40M [facility] Last Admin: 03/26/23 11:45 Dose: 150 mls/hr Insulin Human Lispro (Insulin Lispro 100 Unit/Ml 3 Ml Vial) 0 unit SUBCUT Q6H [facility]; Protocol Last Admin: 03/26/23 12:18 Dose: Not Given Levalbuterol HCl (Levalbuterol Hcl 1.25 Mg/3 Ml Vial.Neb) 1.25 mg INHALE RTID [facility] Last Admin: 03/26/23 08:24 Dose: 1.25 mg Metoclopramide HCl (Metoclopramide Hcl 10 Mg Tablet) 10 mg PO Q6H [facility] Last Admin: 03/26/23 11:33 Dose: 10 mg Pantoprazole Sodium (Pantoprazole Sodium 40 Mg/10 Ml Vial) 40 mg IVPUSH BID@0630,1630 [facility] Home Medications Medication Instructions Recorded Confirmed Last Taken Type insulin glargine 100 unit/mL (3 20 unit subcut BEDTIME 12/13/21 03/20/23 12/12/21 History mL) subcutaneous pen (Lantus Solostar U-100 Insulin) lactulose 10 gram/15 mL oral 30 ml PO DAILY 12/13/21 03/20/23 12/12/21 History solution nicotine 7 mg/24 hr daily 1 patch transdermal Q24H PRN 12/27/22 03/20/23 Unknown History transdermal patch Smoking Cessation sennosides 8.6 mg tablet (senna) 8.6 mg PO DAILY PRN Constipation 12/27/22 03/20/23 Unknown History metoprolol tartrate 25 mg tablet 12.5 mg PO BID 02/20/23 03/20/23 Unknown History amiodarone 200 mg tablet 200 mg G-tube DAILY 03/20/23 03/20/23 Unknown History Physical Exam Vital Signs: Vital Signs: Last Vital Signs Temp 96.9 F 03/26/23 12:00 Pulse 71 03/26/23 12:00 Resp 20 03/26/23 12:00 BP 106/48 L 03/26/23 12:00 Pulse Ox 95 03/26/23 12:00 O2 Del Method Room Air 03/26/23 12:00 O2 Flow Rate 30 03/20/23 13:00 FiO2 21 03/21/23 11:53 BMI result Body Mass Index 25.8 Const: General: no acute distress, confusion and ill appearing Orientation/consciousness: confusion HEENT: Head: Yes normal to inspection Ears: hearing grossly normal bilaterally Mouth: Normal oral and palatal mucosa present Eyes: Sclerae: sclerae normal Pupils: Equal, round and reactive pupils present Neck: Neck: Yes normal visual inspection Chest: Chest palpation & inspection: normal inspection of the chest Resp: Effort & Inspection: normal respiratory effort Auscultation: clear to auscultation bilaterally Cardio: Palpation: normal PMI Rate: regular rate Rhythm: regular rhythm Heart sounds: S1 normal heart sound present, S2 normal heart sound present and no murmurs GI: Inspection: Yes other (colostomy bag in place in LUQ with brown stools) Palpation (GI): Soft to palpation, nontender and No hepatosplenomegaly present Auscultation: normal bowel sounds Rectal Exam - Male: Yes deferred Skin: General skin exam: no rashes or lesions noted Neuro: General: gait normal, moves all extremities and confusion Cranial nerves: Yes Equal, round and reactive pupils present Psych: Speech and movement: Other speech and movement exam findings present (Psych) (demented and confused) Results Labs 03/27/23 06:00 03/27/23 06:00 Labs: Short CBC 03/25/23 03/26/23 03/26/23 Range/Units 22:00 05:40 12:04 WBC 5.1 8.9 10.4 (4.8-10.8) X10*3/uL Hgb 7.2 L 9.5 L D 9.5 L (14.0-18.0) g/dl Hct 22.5 L D 29.1 L D 29.3 L (42.0-52.0) % Plt Count 157 L 173 188 (160-400) X10*3/uL BMP 03/25/23 03/26/23 22:00 05:40 Sodium 142 144 Potassium 3.4 3.8 Chloride 114 H 114 H Carbon Dioxide 20 L 22 BUN 6 L 4 L Creatinine 0.69 0.73 Calcium 8.1 L D 9.1 D Liver Function 03/25/23 03/26/23 Range/Units 22:00 05:40 Total Bilirubin 0.5 1.2 H (0.0-1.0) mg/dL AST 19 18 (5-37) U/L ALT 13 15 (0-40) U/L Alkaline Phosphatase 65 68 (39-117) U/L Albumin 3.5 4.2 (3.5-5.0) g/dL Microbiology Microbiology Results: Microbiology 03/20/23 02:52 Blood - Venous Blood Culture - Preliminary Jessica glabrata 03/24/23 14:23 Blood - Venous Blood Culture - Preliminary Prelim: Yeast Gram Stain only 03/24/23 14:23 Blood - Venous Blood Culture - Preliminary Prelim: Yeast Gram Stain only 03/20/23 02:52 Blood - Venous Blood Culture - Final No growth after 5 days. Assessment and Plan (1) Anemia: Status: Acute Plan 62M PMH CAD s/p CABG, paroxysmal afib, COPD, DM2, paranoid schizophrenia, hypothyroid, just discharged on 03/17 after 3 weeks of admission for sigmoid volvulus and sepsis and readmitted on 03/20/23 from [facility] with lethargy, fever and shortness of breath (saturating 70% at room air). Hospital course c/b fungemia, started on caspofungin; Pt was transferred to ICU evening of 03/25/23 for hypotension and a decrease in H & H. Initial concern for GI bleeding in setting of anemia and pt was started on empiric pantoprazole gtt and transitioned to BID dosing. No evidence of GI bleeding. Brown stools in colostomy bag and Stool was guiac negative x2. RECOMMENDATIONS: 1. Agree with IV PPI twice daily 2. Monitor H & H over the next 2-3 days and if stable resume oral anticoagulation next week. 3. EGD can be considered if there is evidence of active GI bleeding. Time Spent With Patient Time: Total time managing care of this patient today ____ minutes. Procedures Date of Service Date of Service: 03/27/23
--- NOTE | 2023-03-26 15:07 | P.CDIM_ITS ---
PROVIDER RESPONSE TEXT: To clarify, the appropriate diagnosis supported by the clinical indicators: Acute blood loss anemia with baseline chronic anemia: unclear etiology QUERY TEXT: PHYSICIAN'S DOCUMENTATION REQUEST Date of Query: 03/26/2023 08:07 AM EDT Patient Name: Alejo Shetty Admit Date: 03/20/2023 Dear Karen Boyce, A review of the medical record indicates additional documentation may be needed. Please review below and update the documentation accordingly. Clinical Indicators: ICU note: Hypovolemia due to acute on chronic anemia in the setting of upper GI bleed. HGB 7.2 HCT 22.5 BP 85/32 Transfused 2 units of PRBC Based on the above, could you clarify which of the following is the most likely type of anemia you ar e evaluating, treating, and/or monitoring? Acute blood loss anemia Acute blood loss anemia with baseline chronic anemia (specify type) Acute blood loss anemia due to please specify if known Other (explain)Clinically unable to determine (explain)Thank you, Earline Tobar, CCS, CDIS Use of terms such as suspected, likely, concern for, or probable (associated with a specific diagnosi s that is being evaluated, monitored, or treated as if it exists) are acceptable and can be coded in the inpatient se tting, when documented at the time of discharge. Please use your independent medical judgment in providing your response. THIS QUERY IS PART OF THE PERMANENT MEDICAL RECORD
[2023-03-26] MEDS: Pantoprazole Sodium 40 MG/10 ML VIAL IVPUSH (16:09)
[2023-03-26] MEDS: Caspofungin Acetate 50 MG in 0.9 % Sodium Chloride 250 ML 250 MG IV (16:49)
--- NOTE | 2023-03-26 17:14 | P.EN_ITS ---
Event Note Date of Service: 03/27/23 Event Note: Patient seen and examined already seen by ICU (transfer of the afternoon) Seems awake, more arousable Vital seems fine Physical exam unchanged -please see ICU note For assessment and plan coordinated in ICU note Patient has fungemia possibly urinary source Acute blood loss anemia on chronic anemia-patient received 2 and PC H&H is stable around 9.5 Stool occult blood negative, seen by GI recommended start feeding no planned for EGD or colonoscopy for now since occult blood is negative. Monitor H&H Patient had recent sigmoid surgery due to volvulus-surgery incision area has says minimum oozing blood Seen by Dr. mix-no acute surgical intervention. Recommend to start feeding. Regional Education Coordinator evaluation Time Spent With Patient Time: Total time managing care of this patient today ____ minutes.
[2023-03-26 20:20] LABS: Glucose, Whole Blood 126 mg/dL (60-115)
[2023-03-27] VITALS (8 sets, daily range): BP systolic 100–135; BP diastolic 56–67; PULSE 60–73; RESP 14–20; TEMP 36.5–37.1; O2SAT 94–97; BMI 25.8
[2023-03-27] MEDS: Metoclopramide HCl 10 MG TABLET PO ×5 (00:18→23:47)
[2023-03-27] MEDS: Lactated Ringers 1,000 ML 150 ML IVCONT ×4 (00:20→23:37)
[2023-03-27 00:22] LABS: Glucose, Whole Blood 145 mg/dL (60-115)
[2023-03-27 06:08] LABS: Glucose, Whole Blood 154 mg/dL (60-115)
[2023-03-27] MEDS: Insulin Lispro 100 UNIT/ML 3 ML VIAL SUBCUT ×2 (06:36→18:12)
[2023-03-27] MEDS: Pantoprazole Sodium 40 MG/10 ML VIAL IVPUSH ×2 (06:37→18:13)
[2023-03-27 06:38] LABS: MANUAL DIFF FLAG NO
[2023-03-27 06:42] LABS: Basophils Percent Auto 0.3 % (0-2); Eosinophils Absolute Auto 0.1 X10*3/uL (0.0-0.4); Eosinophils Percent Auto 1.2 % (0-4); Hematocrit 28.7 % (42.0-52.0); Hemoglobin 9.3 g/dl (14.0-18.0); Imm Gran Abs Auto 0.03 X10*3/uL (0.00-0.03); Imm Gran Pct Auto 0.4 % (0.0-0.4); Lymphocytes Absolute Auto 2.2 X10*3/uL (1.2-4.9); Lymphocytes Percent Auto 32.4 % (20-40); Mean Corpuscular HGB Conc 32.4 g/dl (31.0-36.0); Mean Corpuscular Hemoglobin 27.2 pg (27.0-33.0); Mean Corpuscular Volume 83.9 fL (80.0-98.0); Mean Platelet Volume 10.9 fL (9.4-12.4); Monocytes Absolute Auto 0.9 X10*3/uL (0.1-1.2); Monocytes Percent Auto 12.5 % (2-11); Neutrophils Absolute Auto 3.7 x10*3/uL (2.0-8.3); Neutrophils Percent Auto 53.2 % (45-73); Platelet Count 199 X10*3/uL (160-400); Red Blood Count 3.42 X10*6/uL (4.60-5.80); White Blood Count 6.9 X10*3/uL (4.8-10.8)
[2023-03-27 06:57] LABS: Anion Gap 11 (12-20); Blood Urea Nitrogen 6 mg/dL (9-16); Calcium 8.9 mg/dL (8.4-10.2); Carbon Dioxide 22 mmol/L (22-29); Chloride 110 mmol/L (96-108); Creatinine Clr Calc Pharmacy 101.5; Estimated Glomerular Filt Rate > 60; Glucose Random 148 mg/dL (60-115); Potassium 3.6 mmol/L (3.3-5.1); Sodium 139 mmol/L (135-145)
--- NOTE | 2023-03-27 07:00 | CA_ITS ---
Transthoracic Echocardiogram Patient (Last, First, Middle): Alejo Shetty, Gender: Male Date of : 1960 Age: 62 Procedure Date: 03/27/2023 Procedure Type: Transthoracic Echocardiogram Location: [facility] [place] Height: 172.72 cm Weight: 76.2 kg BSA: 1.90 m2 Heart Rate: bpm BP: 91 / 53 mmHg Poolroom Table Attendant: Referring MD: Karen Boyce MD Cover Operator: Reece Muñoz MD Symptoms: fungemia, bacteremia Study Quality: Fair ECG Rhythm: Sinus Conclusions: - 1. No obvious vegetations seen on this study 2. Normal LV ejection fraction 55-60% with grade 2 diastolic dysfunction 3. Mildly dilated left atrium 4. Normal cardiac valvular Doppler 5. Normal measured RV systolic pressure 6. No gross pericardial effusion Findings Left Ventricle Normal left ventricular size, thickness, and systolic function. The visually estimated ejection fraction is between 55-60%. Spectral Doppler is indicative of a pseudonormal filling pattern. E/E prime ratio is >15, consistent with elevated filling pressures. Evidence suggests grade II (moderate) diastolic dysfunction. Right Ventricle Mildly increased right ventricular cavity size. There is normal right ventricular systolic function. Atria The left atrium is mildly dilated. Interatrial shunt cannot be excluded. The right atrium is likely dilated. Aortic Valve Normal aortic valve structure and function. There is no aortic valve stenosis. There is no aortic valve regurgitation. Mitral Valve There is mild anterior and posterior mitral leaflet thickening. There is mild mitral annular calcification. There is trace mitral valve regurgitation. There is no mitral valve stenosis. Pulmonic Valve The pulmonic valve was not well visualized. Tricuspid Valve Likely normal tricuspid valve structure and function. There is trace tricuspid valve regurgitation. The right ventricular systolic pressure is normal. The right ventricular systolic pressure is 25 mmHg. There is no evidence of pulmonary hypertension. Great Vessels The aorta was not well visualized. The pulmonary artery was not well visualized. Venous The inferior vena cava was not well visualized. Pericardium/Pleural There is no evidence of pericardial effusion. Prior Study Comparison No prior study available for comparison. Measurements 2D Linear Measurements IVSd: 1.03 0.6-0.9/0.6-1.0 cm LVIDd: 3.75 3.9-5.3/4.2-5.9 cm LVIDd Index: 1.97 2.4-3.2/2.2-3.1 cm/m2 LVIDs: 2.73 2.0-3.6 cm LVPWd: 1.05 0.7-1.1 cm Ao Root: 3.50 2.1-3.5 cm LA Diam: 4.60 2.7-3.8/3.0-4.0 cm LAIDs Index: 2.42 1.5-2.3 cm/m2 LV Mass: 151.24 67-162/88-224 g LV Mass Index: 79.60 43-95/49-115 g/m2 LVOT Diam: 2.10 3.0+(-)1.3 cm Mitral Valve MV Pk E: 1.20 MV PK A: 0.68 MV Decel Time: 202.00 E/A: 1.80 E'Lateral: 6.64 E'Medial: 6.85 E/E' Med: 17.50 E/E' Lat: 18.10 PHT: 59.00 MVA PHT: 3.73 Decel Walker: 5.91 Aortic Valve AoV Pk Junior: 1.23 AoV Mn Junior: 0.80 AoV VTI: 0.30 AoV Pk Grad: 6.00 Aov Mn Grad: 3.00 CRIS Cont.VTI: 1.96 LVOT LVOT Pk Junior: 0.72 LVOT Mn Junior: 0.46 LVOT VTI: 0.17 LVOT Pk Grad: 2.00 LVOT Mn Grad: 1.00 LVOT Diam: 2.10 LVOT Area: 3.46 Diastolic Function MV Pk E: 1.20 MV Pk A: 0.68 E/A: 1.80 E'Medial: 6.85 E/E' Med: 17.50 E' Laterial: 6.64 E/E' Lat: 18.10 Right Ventricle TAPSE (mm): 23.00 Tricuspid Valve TR Pk Junior: 2.36 TR Pk Grad: 22.00 RA Press: 3.00 RVSP: 25.00 Great Vessels Aorta Ao Root-2D: 3.50 2.0-3.7 cm Ao Asc: 3.20 2.1-3.4 cm Pulmonary Valve PV Pk Junior: 1.00 Peak PV Grad: 4.00 Updated in Other Vendor System with Status of Final Reece Muñoz MD electronically signed on 03/27/2023 5:06:48 PM with status of Final
[2023-03-27] MEDS: levalbuterol HCL 1.25 MG/3 ML VIAL.NEB INHALE ×2 (08:07→20:19)
--- NOTE | 2023-03-27 09:41 | PM.CNGS ---
History of Present Illness Consult details Consult date: 03/26/23 Narrative: Patient is very well known to me from recent past surgical intervention. Consult for surgery to evaluate patient's incision. Most inferior aspect of his incision is draining serous drainage. 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 Paranoid schizophrenia Hyperlipidemia Hypothyroidism Anemia Encephalopathy Drug induced subacute dyskinesia Cognitive impairment Exotropia, alternating, with A pattern Hypermetropia of both eyes Dysphagia Boutonniere deformity of finger COVID-19 Type 2 diabetes mellitus COPD (chronic obstructive pulmonary disease) Dementia Family History Family history: reviewed and not pertinent Surgical History Surgical History Presence of aortocoronary bypass graft Social History Social History Household Members: Unknown / Unable to assess Household Members Other:: [facility] Housing: Retirement Housing Other:: [facility] Do you presently have visiting nurse or other home services: No Unable to assess alcohol history related to: Unable to respond Patient Tobacco Use Status: Former Tobacco user Tobacco use type: Cigarette Years Smoked: SURAJ Smoked in Last 30 Days: No Use of substances other than those prescribed or required for medical reasons: Unable to respond Currently Displaying Signs/Symptoms of Drug Intoxication Withdrawal: No Advance Directives: Yes Advance Directives on File: Yes Advance Directives Date on File: 12/14/21 Do you have thoughts of harming others: None Do you have a plan to hurt others: No Plan Recently lost weight without trying: Unsure Nutrition Risks: On aspiration precautions Poor oral hygiene: Yes service: No Current occupational status: disabled Meds Allergies Allergy/AdvReac Type Severity Reaction Status Date / Time No Known Allergies Allergy Unverified 04/05/20 19:36 [No Known Allergies*] Active Medications: Current Medications Acetaminophen (Acetaminophen 325 Mg Tablet) 650 mg G-TUBE Q6H PRN PRN Reason: Fever Last Admin: 03/25/23 09:29 Dose: 650 mg Dextrose (Dextrose 50 % 25 Gm/50 Ml Syringe) 25 gm IVPUSH STAT PRN; Protocol PRN Reason: Hypoglycemia Last Admin: 03/22/23 06:01 Dose: 25 gm Caspofungin 50 mg/ Sodium (Chloride) 250 mls @ 250 mls/hr IV Q24H [facility] Last Infusion: 03/26/23 17:55 Dose: Infused Lactated Ringer's (Lr) 1,000 mls @ 150 mls/hr IVCONT .Q6H40M [facility] Last Admin: 03/27/23 08:14 Dose: 150 mls/hr Insulin Human Lispro (Insulin Lispro 100 Unit/Ml 3 Ml Vial) 0 unit SUBCUT Q6H [facility]; Protocol Last Admin: 03/27/23 06:36 Dose: 2 unit Levalbuterol HCl (Levalbuterol Hcl 1.25 Mg/3 Ml Vial.Neb) 1.25 mg INHALE RTID [facility] Last Admin: 03/27/23 08:07 Dose: 1.25 mg Metoclopramide HCl (Metoclopramide Hcl 10 Mg Tablet) 10 mg PO Q6H [facility] Last Admin: 03/27/23 06:37 Dose: 10 mg Pantoprazole Sodium (Pantoprazole Sodium 40 Mg/10 Ml Vial) 40 mg IVPUSH BID@0630,1630 [facility] Last Admin: 03/27/23 06:37 Dose: 40 mg Home Medications Medication Instructions Recorded Confirmed Last Taken Type insulin glargine 100 unit/mL (3 20 unit subcut BEDTIME 12/13/21 03/20/23 12/12/21 History mL) subcutaneous pen (Lantus Solostar U-100 Insulin) lactulose 10 gram/15 mL oral 30 ml PO DAILY 12/13/21 03/20/23 12/12/21 History solution nicotine 7 mg/24 hr daily 1 patch transdermal Q24H PRN 12/27/22 03/20/23 Unknown History transdermal patch Smoking Cessation sennosides 8.6 mg tablet (senna) 8.6 mg PO DAILY PRN Constipation 12/27/22 03/20/23 Unknown History metoprolol tartrate 25 mg tablet 12.5 mg PO BID 02/20/23 03/20/23 Unknown History amiodarone 200 mg tablet 200 mg G-tube DAILY 03/20/23 03/20/23 Unknown History Physical Exam Vital Signs: Vital Signs: Last Vital Signs Temp 98.2 F 03/27/23 07:00 Pulse 70 03/27/23 08:08 Resp 18 03/27/23 08:08 BP 100/56 L 03/27/23 07:00 Pulse Ox 96 03/27/23 07:00 O2 Del Method Room Air 03/27/23 07:00 O2 Flow Rate 30 03/20/23 13:00 FiO2 21 03/21/23 11:53 BMI result Body Mass Index 25.8 GI: Other: Abdomen soft. G-tube in place functioning. Ostomy functioning well. Lower midline incision is well healed with good 1st intention and all but the most inferior aspect which has approximately 1 cm draining area. This was explored with a Q-tip and only serous material was retrieved of the granulating wound. No obvious collection or abscess. Results Labs 03/27/23 06:00 03/27/23 06:00 Labs: Abnormal lab results 03/26/23 03/26/23 03/26/23 Range/Units 12:04 12:05 20:17 RBC 3.47 L (4.60-5.80) X10*6/uL Hgb 9.5 L (14.0-18.0) g/dl Hct 29.3 L (42.0-52.0) % Immature Gran % (Auto) 0.6 H (0.0-0.4) % Lymph % (Auto) 17.1 L (20-40) % Williamson % (Auto) (2-11) % Abs Immat Gran (auto) 0.06 H (0.00-0.03) X10*3/uL Chloride (96-108) mmol/L Anion Gap (12-20) BUN (9-16) mg/dL POC Glucose 137 H 126 H (60-115) mg/dL Random Glucose (60-115) mg/dL 03/27/23 03/27/23 03/27/23 Range/Units 00:18 06:00 06:04 RBC 3.42 L (4.60-5.80) X10*6/uL Hgb 9.3 L (14.0-18.0) g/dl Hct 28.7 L (42.0-52.0) % Immature Gran % (Auto) (0.0-0.4) % Lymph % (Auto) (20-40) % Williamson % (Auto) 12.5 H (2-11) % Abs Immat Gran (auto) (0.00-0.03) X10*3/uL Chloride 110 H (96-108) mmol/L Anion Gap 11 L (12-20) BUN 6 L (9-16) mg/dL POC Glucose 145 H 154 H (60-115) mg/dL Random Glucose 148 H (60-115) mg/dL Short CBC 03/26/23 03/27/23 Range/Units 12:04 06:00 WBC 10.4 6.9 (4.8-10.8) X10*3/uL Hgb 9.5 L 9.3 L (14.0-18.0) g/dl Hct 29.3 L 28.7 L (42.0-52.0) % Plt Count 188 199 (160-400) X10*3/uL BMP 03/27/23 06:00 Sodium 139 Potassium 3.6 Chloride 110 H Carbon Dioxide 22 BUN 6 L Creatinine 0.72 Calcium 8.9 Urine 03/20/23 Range/Units 05:54 Urine Color Yellow Urine Appearance Clear Urine pH 6.0 (5.0-9.0) Ur Specific Turner 1.015 (1.005-1.025) Urine Protein 30 (1+) H (Neg-Trace) mg/dL Urine Glucose (UA) Negative (Negative) mg/dL All other labs normal. Assessment and Plan (1) Drainage from wound: Status: Acute Plan Current recommendation is to undergo local wound care in the form of of packing changes sterile dressing each day. Hopefully this will uneventfully heal by secondary intention. Will follow-up p.r.n.. Time Spent With Patient Time: Total time managing care of this patient today ____ minutes. Procedures Date of Service Date of Service: 03/27/23
--- NOTE | 2023-03-27 10:25 | MHC.CM.PN ---
PER MD ROUNDS, PT NOT YET MEDICALLY CLEARED DCP: RETURN TO [facility]
[2023-03-27 11:26] LABS: Glucose, Whole Blood 116 mg/dL (60-115)
--- NOTE | 2023-03-27 13:24 | MHC.CLN ---
F/U PT TRANSFERRED BACK TO MEDICAL FLOOR FROM ICU TF CURRENTLY RUNNING JEVITY 1.0 AT 60ML /HR TF WAS RECENTLY CHANGED DUE TO SUPPLE CHAIN SHORTAGE GLUCERNA TUBE FEEDING AVAILABLE AND CAN BE SWITCHED BACK ONCE JEVITY 1.0 BOTTLE IS DEPLETED RECOMMEND CHANGE FORMULA BACK TO GLUCERNA MAX GOAL RATE AT 85ML/HR WITH 120ML Q 8 HR TO PROVIDE 2040KCALS (29KCALS/KG), 85G PROTEIN (1.2G/KG), 2100ML TOTAL WATER FROM FORMULA AND FLUSHES (30ML/KG) MONITOR TOLERANCE, RESIDUALS, BS AND LYTES
--- NOTE | 2023-03-27 14:40 | PC.NURSE ---
Per surgeon order, packing and DSD applied to mid lower wound. Patient tolerated well. Moderate amount of bloody/garcia drainage noted to old dressing when removing.
--- NOTE | 2023-03-27 15:03 | HO.PM.IMPN ---
Subjective Subjective Date of Service: 03/28/23 Interval History: Fungemia ,anemia Review of Systems seems more awake no fevers Physical Exam Vital Signs: Vital Signs: Last Vital Signs Temp 98.7 F 03/27/23 11:00 Pulse 68 03/27/23 11:00 Resp 20 03/27/23 11:00 BP 113/62 03/27/23 11:00 Pulse Ox 97 03/27/23 11:00 O2 Del Method Room Air 03/27/23 11:00 O2 Flow Rate 30 03/20/23 13:00 FiO2 21 03/21/23 11:53 BMI result Body Mass Index 25.8 Appearance: Awake alert interactive (baseline). cvs: [id number], [id number] . res: air entry fair , few scattered rhonchii abd: soft,nt, bs present.Colostomy bag appears to be functioning normally no more oozing from abd incison area ext pulses present , no cyanosis . Objective Data Active Medications Acetaminophen (Acetaminophen 325 Mg Tablet) 650 mg G-TUBE Q6H PRN PRN Reason: Fever Last Admin: 03/25/23 09:29 Dose: 650 mg Documented By: LOUANN Dextrose (Dextrose 50 % 25 Gm/50 Ml Syringe) 25 gm IVPUSH STAT PRN; Protocol PRN Reason: Hypoglycemia Last Admin: 03/22/23 06:01 Dose: 25 gm Documented By: SHAMIR Caspofungin 50 mg/ Sodium (Chloride) 250 mls @ 250 mls/hr IV Q24H [facility] Last Infusion: 03/26/23 17:55 Dose: Infused Documented By: [place] Lactated Ringer's (Lr) 1,000 mls @ 150 mls/hr IVCONT .Q6H40M [facility] Last Admin: 03/27/23 14:37 Dose: 150 mls/hr Documented By: REG Insulin Human Lispro (Insulin Lispro 100 Unit/Ml 3 Ml Vial) 0 unit SUBCUT Q6H [facility]; Protocol Last Admin: 03/27/23 13:47 Dose: Not Given Documented By: REG Non-Admin Reason: No Insulin Coverage Levalbuterol HCl (Levalbuterol Hcl 1.25 Mg/3 Ml Vial.Neb) 1.25 mg INHALE RTID [facility] Last Admin: 03/27/23 08:07 Dose: 1.25 mg Documented By: ALFRED Metoclopramide HCl (Metoclopramide Hcl 10 Mg Tablet) 10 mg PO Q6H [facility] Last Admin: 03/27/23 13:53 Dose: 10 mg Documented By: REG Pantoprazole Sodium (Pantoprazole Sodium 40 Mg/10 Ml Vial) 40 mg IVPUSH BID@0630,1630 [facility] Last Admin: 03/27/23 06:37 Dose: 40 mg Documented By: AGUILAR Labs 03/28/23 06:16 03/27/23 06:00 Labs: Laboratory Results - last 24 hr 03/26/23 03/27/23 03/27/23 20:17 00:18 06:00 MCV 83.9 MCH 27.2 MCHC 32.4 RDW 16.0 Plt Count 199 MPV 10.9 Immature Gran % (Auto) 0.4 Neut % (Auto) 53.2 Lymph % (Auto) 32.4 [place] % (Auto) 12.5 H Eos % (Auto) 1.2 Baso % (Auto) 0.3 Lymph # (Auto) 2.2 [place] # (Auto) 0.9 Eos # (Auto) 0.1 Baso # (Auto) 0.0 Abs Immat Gran (auto) 0.03 Absolute Neuts (auto) 3.7 Absolute Nucleated RBC 0.000 Nucleated RBC % (auto) 0.0 Anion Gap 11 L Estim Creat Clear Calc 101.5 Estimated GFR > 60 POC Glucose 126 H 145 H Random Glucose 148 H Calcium 8.9 03/27/23 03/27/23 06:04 11:09 MCV MCH MCHC RDW Plt Count MPV Immature Gran % (Auto) Neut % (Auto) Lymph % (Auto) [place] % (Auto) Eos % (Auto) Baso % (Auto) Lymph # (Auto) [place] # (Auto) Eos # (Auto) Baso # (Auto) Abs Immat Gran (auto) Absolute Neuts (auto) Absolute Nucleated RBC Nucleated RBC % (auto) Anion Gap Estim Creat Clear Calc Estimated GFR POC Glucose 154 H 116 H Random Glucose Calcium Microbiology Microbiology Results: Microbiology 03/24/23 14:23 Blood Culture - Preliminary Blood - Venous Yeast 03/24/23 14:23 Blood Culture - Preliminary Blood - Venous Yeast 03/26/23 15:30 Gram Stain - Final Abdomen - Wound Routine Culture - Preliminary No growth to date. Assessment and Plan (1) Drainage from wound: Status: Acute (2) Urinary retention: Status: Acute (3) Fungemia: Status: Acute (4) Anemia: Status: Acute Plan 62-year-old male with past medical history significant for coronary artery disease status post CABG, paroxysmal AFib, COPD, dm 2 in the backdrop of paranoid schizophrenia presents with what likely represented aspiration from [facility].? Was intubated in emergency room and transferred to ICU.? Feedings were stopped at that time.? During ICU stay, chicken boner noted that there was scant output from colostomy bag.? Concern was for stricture.? Patient was maintained on NPO status and broad-spectrum antibiotics were initiated.? Patient was subsequently extubated without issue and did well in the immediate post extubation period.? He was transferred to telemetry and by my observation is back to his baseline as he was at [facility].? Feedings continue to be held. Patient back went to ICU on 03/25/23 -03/26/23: bodelrine blood pressure -multifactorial ( high colostomy out , ? anemia -some slow oozing from his surgery incison area) Pressure improved with IV fluids and also received 2 PRBC. Subsequently patient was sent to floor on 03/26/2023. Acute hypoxic respiratory failure likely secondary to aspiration pneumonia intermittent fevers , has cough cxr showin -slightly improving air space dis . res panel neg d/w Id dc continue Zosyn (5 days total got),tylenol prn for fevers ,wean off O2. Possible fungemia previously 02/20 urine culture grew boone glabrata-( given caspofungin for 1 week-as per 03/05/23 hospitalist note). blood culture x3 -grew yeast, added another blood cultures trenasthoracic echo : 1. No obvious vegetations seen on this study 2. Normal LV ejection fraction 55-60% with grade 2 diastolic dysfunction 3. Mildly dilated left atrium 4. Normal cardiac valvular Doppler 5. Normal measured RV systolic pressure 6. No gross pericardial effusion . started on caspofungin(started on 03/25/23),bodelrine bp-likely due to dec po intake /hypoalbuminemia ,lactic acid normal moniter blood pressure closely. Dysphagia (query secondary to dysmotility)-likely secondary to overall constellation of comorbidities at the time of admission; no overt neurological event on tube feedings, follow up closely -patient started on erythromycin IV along with Reglan to increase motility in ICU off erythromycin and follow clinically. Reglan switched to PEG tube high output colostomy -on ivf LR @ 150 ml/hr -[facility] will receive a speech eval to assess swallow -encourage out of bed while feedings. Acute blood loss anemia on chronic anemia- may be slow oozing from surgery colostomy side/iv fluids contributing(dilutional) occult blood neg x2 patient received 2 and PC H&H is stable around 9.5 Gi- no acute intervention. moniter h/h tomorrow and hold eliquis . Type 2 diabetes - continue lispro correctional scale while in-house -adjust therapies as indicated Paranoid schizophrenia -patient has been off clozaril for approximately 1week...? Behaviors stable -will reassess need when returns to [facility]. Paroxysmal atrial fibrillation -acceptable rate control presently -continue Eliquis -adjust therapies as clinically indicated DNR/DNI Eliquis. ongoing hospitalization Fungemia:need iv cospofungin , repeat blood cultures added . Time Spent With Patient Time: Total time managing care of this patient today ____ minutes. Quality Stroke Does the patient have a stroke diagnosis?: No VTE Prior VTE?: No VTE Risk Level:: Medical - moderate - high VTE Device Contraindication: N/A - Device Ordered VTE Drug Contraindication: Treatment Not Tolerated
[2023-03-27 18:00] LABS: Glucose, Whole Blood 190 mg/dL (60-115)
[2023-03-27] MEDS: Caspofungin Acetate 50 MG in 0.9 % Sodium Chloride 250 ML 250 MG IV (18:14)
[2023-03-28] VITALS (9 sets, daily range): BP systolic 106–133; BP diastolic 61–78; PULSE 75–100; RESP 16–20; TEMP 36.2–37; O2SAT 94–97; BMI 26.9
[2023-03-28 00:15] LABS: Glucose, Whole Blood 169 mg/dL (60-115)
[2023-03-28] MEDS: Insulin Lispro 100 UNIT/ML 3 ML VIAL SUBCUT ×3 (00:15→17:50)
[2023-03-28] MEDS: Metoclopramide HCl 10 MG TABLET PO ×3 (05:21→17:43)
[2023-03-28] MEDS: Pantoprazole Sodium 40 MG/10 ML VIAL IVPUSH (05:23)
[2023-03-28] MEDS: Lactated Ringers 1,000 ML 150 ML IVCONT ×3 (05:27→16:53)
[2023-03-28 06:22] LABS: Glucose, Whole Blood 125 mg/dL (60-115)
[2023-03-28 06:33] LABS: Hemoglobin 10.5 g/dl (14.0-18.0)
[2023-03-28] MEDS: levalbuterol HCL 1.25 MG/3 ML VIAL.NEB INHALE ×3 (08:14→19:52)
[2023-03-28 12:09] LABS: Glucose, Whole Blood 168 mg/dL (60-115)
--- NOTE | 2023-03-28 15:59 | P.PNIM_ITS ---
Subjective Subjective Date of Service: 03/28/23 Interval History: Fungemia ,anemia Review of Systems seems more awake no fevers Physical Exam 2 Vital Signs: Vital Signs: Last Vital Signs Temp 98.6 F 03/28/23 15:00 Pulse 81 03/28/23 15:00 Resp 18 03/28/23 15:00 BP 126/61 03/28/23 15:00 Pulse Ox 94 03/28/23 15:00 O2 Del Method Room Air 03/28/23 15:00 O2 Flow Rate 30 03/20/23 13:00 FiO2 21 03/21/23 11:53 BMI result Body Mass Index 26.9 Appearance: Awake alert interactive (baseline). cvs: [id number], [id number] . res: air entry fair , few scattered rhonchii abd: soft,nt, bs present.Colostomy bag appears to be functioning normally no more oozing from abd incison area ext pulses present , no cyanosis . Objective Data Active Medications Acetaminophen (Acetaminophen 325 Mg Tablet) 650 mg G-TUBE Q6H PRN PRN Reason: Fever Last Admin: 03/25/23 09:29 Dose: 650 mg Documented By: LOUANN Dextrose (Dextrose 50 % 25 Gm/50 Ml Syringe) 25 gm IVPUSH STAT PRN; Protocol PRN Reason: Hypoglycemia Last Admin: 03/22/23 06:01 Dose: 25 gm Documented By: SHAMIR Caspofungin 50 mg/ Sodium (Chloride) 250 mls @ 250 mls/hr IV Q24H [facility] Last Infusion: 03/27/23 19:36 Dose: Infused Documented By: BRANDON Lactated Ringer's (Lr) 1,000 mls @ 150 mls/hr IVCONT .Q6H40M [facility] Last Admin: 03/28/23 10:11 Dose: 150 mls/hr Documented By: MIGUEL ANGEL Insulin Human Lispro (Insulin Lispro 100 Unit/Ml 3 Ml Vial) 0 unit SUBCUT Q6H [facility]; Protocol Last Admin: 03/28/23 12:31 Dose: 2 unit Documented By: MIGUEL ANGEL Levalbuterol HCl (Levalbuterol Hcl 1.25 Mg/3 Ml Vial.Neb) 1.25 mg INHALE RTID [facility] Last Admin: 03/28/23 11:26 Dose: 1.25 mg Documented By: HO.ARIASKI Metoclopramide HCl (Metoclopramide Hcl 10 Mg Tablet) 10 mg PO Q6H [facility] Last Admin: 03/28/23 12:31 Dose: 10 mg Documented By: MIGUEL ANGEL Pantoprazole Sodium (Pantoprazole Sodium 40 Mg/10 Ml Vial) 40 mg IVPUSH BID@0630,1630 [facility] Last Admin: 03/28/23 05:23 Dose: 40 mg Documented By: BRANDON Labs 03/28/23 06:16 03/27/23 06:00 Labs: Laboratory Results - last 24 hr 03/27/23 03/28/23 03/28/23 17:56 00:10 05:40 POC Glucose 190 H 169 H 125 H 03/28/23 12:05 POC Glucose 168 H Microbiology Microbiology Results: Microbiology 03/24/23 14:23 Blood Culture - Preliminary Blood - Venous Boone glabrata 03/24/23 14:23 Blood Culture - Preliminary Blood - Venous Bo[place] glabrata 03/26/23 15:30 Gram Stain - Final Abdomen - Wound Routine Culture - Preliminary No growth to date. Assessment and Plan (1) Drainage from wound: Status: Acute (2) Urinary retention: Status: Acute (3) Fungemia: Status: Acute (4) Anemia: Status: Acute Plan 62-year-old male with past medical history significant for coronary artery disease status post CABG, paroxysmal AFib, COPD, dm 2 in the backdrop of paranoid schizophrenia presents with what likely represented aspiration from [facility].? Was intubated in emergency room and transferred to ICU.? Feedings were stopped at that time.? During ICU stay, market research lead noted that there was scant output from colostomy bag.? Concern was for stricture.? Patient was maintained on NPO status and broad-spectrum antibiotics were initiated.? Patient was subsequently extubated without issue and did well in the immediate post extubation period.? He was transferred to telemetry and by my observation is back to his baseline as he was at [facility].? Feedings continue to be held. Patient back went to ICU on 03/25/23 -03/26/23: bodelrine blood pressure -multifactorial ( high colostomy out , ? anemia -some slow oozing from his surgery incison area) Pressure improved with IV fluids and also received 2 PRBC. Subsequently patient was sent to floor on 03/26/2023. Acute hypoxic respiratory failure likely secondary to aspiration pneumonia intermittent fevers , has cough cxr showin -slightly improving air space dis . res panel neg d/w Id dc continue Zosyn (5 days total got),tylenol prn for fevers ,wean off O2. Possible fungemia previously 02/20 urine culture grew boone glabrata-( given caspofungin for 1 week-as per 03/05/23 hospitalist note). blood culture x3 -grew yeast, added another blood cultures trenasthoracic echo : 1. No obvious vegetations seen on this study 2. Normal LV ejection fraction 55-60% with grade 2 diastolic dysfunction 3. Mildly dilated left atrium 4. Normal cardiac valvular Doppler 5. Normal measured RV systolic pressure 6. No gross pericardial effusion . started on caspofungin(started on 03/25/23),bodelrine bp-likely due to dec po intake /hypoalbuminemia ,lactic acid normal moniter blood pressure closely. Dysphagia (query secondary to dysmotility)-likely secondary to overall constellation of comorbidities at the time of admission; no overt neurological event on tube feedings, follow up closely -patient started on erythromycin IV along with Reglan to increase motility in ICU off erythromycin and follow clinically. Reglan switched to PEG tube high output colostomy -on ivf LR @ 150 ml/hr -upon return to [facility], he will receive a speech eval to assess swallow -encourage out of bed while feedings. Acute blood loss anemia on chronic anemia- may be slow oozing from surgery colostomy side/iv fluids contributing(dilutional) occult blood neg x2 patient received 2 and PC H&H is stable around 9.5 Gi- no acute intervention. moniter h/h is around 10.5 range ,will start eliquis. Type 2 diabetes - continue lispro correctional scale while in-house -adjust therapies as indicated Paranoid schizophrenia -patient has been off clozaril for approximately 1week...? Behaviors stable -will reassess need when returns to [facility]. Paroxysmal atrial fibrillation -acceptable rate control presently -continue Eliquis -adjust therapies as clinically indicated DNR/DNI Eliquis. ongoing hospitalization Fungemia:need iv cospofungin , repeat blood cultures added . Time Spent With Patient Time: Total time managing care of this patient today ____ minutes. Quality Stroke Does the patient have a stroke diagnosis?: No VTE Prior VTE?: No VTE Risk Level:: Medical - moderate - high VTE Device Contraindication: N/A - Device Ordered VTE Drug Contraindication: Treatment Not Tolerated
[2023-03-28] MEDS: Caspofungin Acetate 50 MG in 0.9 % Sodium Chloride 250 ML 250 MG IV (16:52)
[2023-03-28] MEDS: Omeprazole/Na Bicarb Oral Susp 20 MG/10 ML UD Cup G-TUBE (16:53)
[2023-03-28 17:43] LABS: Glucose, Whole Blood 163 mg/dL (60-115)
[2023-03-28] MEDS: Apixaban 5 MG TABLET G-TUBE (21:09)
[2023-03-28 23:57] LABS: Glucose, Whole Blood 153 mg/dL (60-115)
[2023-03-29] VITALS (9 sets, daily range): BP systolic 109–131; BP diastolic 57–75; PULSE 72–91; RESP 16–20; TEMP 36.3–37.1; O2SAT 91–98; BMI 27.5
[2023-03-29] MEDS: Lactated Ringers 1,000 ML 150 ML IVCONT ×2 (00:16→05:06)
[2023-03-29] MEDS: Insulin Lispro 100 UNIT/ML 3 ML VIAL SUBCUT ×2 (00:18→17:59)
[2023-03-29] MEDS: Metoclopramide HCl 10 MG TABLET PO ×5 (00:19→23:30)
[2023-03-29] MEDS: Omeprazole/Na Bicarb Oral Susp 20 MG/10 ML UD Cup G-TUBE ×2 (05:05→15:37)
[2023-03-29 05:24] LABS: Glucose, Whole Blood 139 mg/dL (60-115)
[2023-03-29 06:31] LABS: Hematocrit 32.5 % (42.0-52.0); Hemoglobin 10.6 g/dl (14.0-18.0)
[2023-03-29] MEDS: levalbuterol HCL 1.25 MG/3 ML VIAL.NEB INHALE ×3 (08:47→19:21)
[2023-03-29] MEDS: Apixaban 5 MG TABLET G-TUBE ×2 (09:33→20:09)
[2023-03-29 12:19] LABS: Glucose, Whole Blood 144 mg/dL (60-115)
[2023-03-29] MEDS: Lactated Ringers 1,000 ML 100 ML IVCONT ×2 (12:53→23:30)
--- NOTE | 2023-03-29 13:13 | HO.PM.IMPN ---
Subjective Subjective Date of Service: 03/29/23 Interval History: Fungemia ,anemia Review of Systems seems more awake no fevers Physical Exam Vital Signs: Vital Signs: Last Vital Signs Temp 97.8 F 03/29/23 11:00 Pulse 72 03/29/23 11:00 Resp 20 03/29/23 11:00 BP 109/59 L 03/29/23 11:00 Pulse Ox 95 03/29/23 11:00 O2 Del Method Room Air 03/29/23 11:00 O2 Flow Rate 30 03/20/23 13:00 FiO2 21 03/21/23 11:53 BMI result Body Mass Index 27.5 Appearance: Awake alert interactive (baseline). cvs: rrr, [id number] . res: air entry fair , few scattered rhonchii abd: soft,nt, bs present.Colostomy bag appears to be functioning normally no more oozing from abd incison area ext pulses present , no cyanosis . Objective Data Active Medications Acetaminophen (Acetaminophen 325 Mg Tablet) 650 mg G-TUBE Q6H PRN PRN Reason: Fever Last Admin: 03/25/23 09:29 Dose: 650 mg Documented By: LOUANN Apixaban (Apixaban 5 Mg Tablet) 5 mg G-TUBE BID [facility] Last Admin: 03/29/23 09:33 Dose: 5 mg Documented By: MIGUEL ANGEL Dextrose (Dextrose 50 % 25 Gm/50 Ml Syringe) 25 gm IVPUSH STAT PRN; Protocol PRN Reason: Hypoglycemia Last Admin: 03/22/23 06:01 Dose: 25 gm Documented By: SHAMIR Caspofungin 50 mg/ Sodium (Chloride) 250 mls @ 250 mls/hr IV Q24H [facility] Last Infusion: 03/28/23 17:55 Dose: Infused Documented By: HALLIE Lactated Ringer's (Lr) 1,000 mls @ 100 mls/hr IVCONT .Q10H [facility] Last Admin: 03/29/23 12:53 Dose: 100 mls/hr Documented By: MIGUEL ANGEL Insulin Human Lispro (Insulin Lispro 100 Unit/Ml 3 Ml Vial) 0 unit SUBCUT Q6H [facility]; Protocol Last Admin: 03/29/23 12:34 Dose: Not Given Documented By: MIGUEL ANGEL Non-Admin Reason: No Insulin Coverage Comments: per sliding scale Levalbuterol HCl (Levalbuterol Hcl 1.25 Mg/3 Ml Vial.Neb) 1.25 mg INHALE RTID [facility] Last Admin: 03/29/23 08:47 Dose: 1.25 mg Documented By: ALFRED Metoclopramide HCl (Metoclopramide Hcl 10 Mg Tablet) 10 mg PO Q6H [facility] Last Admin: 03/29/23 12:04 Dose: 10 mg Documented By: MIGUEL ANGEL Omeprazole (Omeprazole/Na Bicarb Oral Susp 20 Mg/10 Ml Ud Cup) 20 mg G-TUBE BID@0630,1630 [facility] Last Admin: 03/29/23 05:05 Dose: 20 mg Documented By: DESIREE Labs 03/29/23 06:11 03/27/23 06:00 Labs: Laboratory Results - last 24 hr 03/28/23 03/28/23 03/29/23 17:39 23:53 05:12 POC Glucose 163 H 153 H 139 H 03/29/23 12:16 POC Glucose 144 H Microbiology Microbiology Results: Microbiology 03/26/23 15:30 Gram Stain - Final Abdomen - Wound Routine Culture - Final No growth after 2 days 03/27/23 15:41 Blood Culture - Preliminary Blood - Venous No growth after 24 hours. 03/27/23 15:42 Blood Culture - Preliminary Blood - Venous No growth after 24 hours. 03/24/23 14:23 Blood Culture - Preliminary Blood - Venous Boone glabrata 03/24/23 14:23 Blood Culture - Preliminary Blood - Venous Boone glabrata Assessment and Plan (1) Drainage from wound: Status: Acute (2) Urinary retention: Status: Acute (3) Fungemia: Status: Acute (4) Anemia: Status: Acute Plan 62-year-old male with past medical history significant for coronary artery disease status post CABG, paroxysmal AFib, COPD, dm 2 in the backdrop of paranoid schizophrenia presents with what likely represented aspiration from [facility].? Was intubated in emergency room and transferred to ICU.? Feedings were stopped at that time.? During ICU stay, seo professional noted that there was scant output from colostomy bag.? Concern was for stricture.? Patient was maintained on NPO status and broad-spectrum antibiotics were initiated.? Patient was subsequently extubated without issue and did well in the immediate post extubation period.? He was transferred to telemetry and by my observation is back to his baseline as he was at [facility].? Feedings continue to be held. Patient back went to ICU on 03/25/23 -03/26/23: bodelrine blood pressure -multifactorial ( high colostomy out , ? anemia -some slow oozing from his surgery incison area) Pressure improved with IV fluids and also received 2 PRBC. Subsequently patient was sent to floor on 03/26/2023. Acute hypoxic respiratory failure likely secondary to aspiration pneumonia intermittent fevers , has cough cxr showin -slightly improving air space dis . res panel neg d/w Id dc continue Zosyn (5 days total got),tylenol prn for fevers ,wean off O2. Possible fungemia previously 02/20 urine culture grew boone glabrata-( given caspofungin for 1 week-as per 03/05/23 hospitalist note). blood culture x3 -grew yeast, added another blood cultures trenasthoracic echo : 1. No obvious vegetations seen on this study 2. Normal LV ejection fraction 55-60% with grade 2 diastolic dysfunction 3. Mildly dilated left atrium 4. Normal cardiac valvular Doppler 5. Normal measured RV systolic pressure 6. No gross pericardial effusion . started on caspofungin(started on 03/25/23) moniter blood pressure closely. Dysphagia (query secondary to dysmotility)-likely secondary to overall constellation of comorbidities at the time of admission; no overt neurological event on tube feedings, follow up closely -patient started on erythromycin IV along with Reglan to increase motility in ICU off erythromycin and follow clinically. Reglan switched to PEG tube high output colostomy -on ivf LR @ 100 ml/hr -upon return to [facility], he will receive a speech eval to assess swallow -encourage out of bed while feedings. Acute blood loss anemia on chronic anemia- may be slow oozing from surgery colostomy side/iv fluids contributing(dilutional) occult blood neg x2 patient received 2 and PC H&H is stable around 9.5 d/w Gi- no acute intervention. moniter h/h is around 10.5 range , eliquis started . Type 2 diabetes - continue lispro correctional scale while in-house -adjust therapies as indicated Paranoid schizophrenia -patient has been off clozaril for approximately 1week...? Behaviors stable -will reassess need when returns to [facility]. Paroxysmal atrial fibrillation -acceptable rate control presently -continue Eliquis -adjust therapies as clinically indicated DNR/DNI Eliquis. ongoing hospitalization Fungemia:need iv cospofungin , repeat blood cultures pending . Time Spent With Patient Time: Total time managing care of this patient today ____ minutes. Quality Stroke Does the patient have a stroke diagnosis?: No VTE Prior VTE?: No VTE Risk Level:: Medical - moderate - high VTE Device Contraindication: N/A - Device Ordered VTE Drug Contraindication: Treatment Not Tolerated
[2023-03-29 17:39] LABS: Glucose, Whole Blood 172 mg/dL (60-115)
[2023-03-29] MEDS: Caspofungin Acetate 50 MG in 0.9 % Sodium Chloride 250 ML 250 MG IV (17:59)
[2023-03-29 23:43] LABS: Glucose, Whole Blood 140 mg/dL (60-115)
[2023-03-30] VITALS (9 sets, daily range): BP systolic 119–138; BP diastolic 57–66; PULSE 73–101; RESP 14–18; TEMP 36.5–37.2; O2SAT 92–95; BMI 27.6
[2023-03-30 05:47] LABS: Glucose, Whole Blood 156 mg/dL (60-115)
[2023-03-30] MEDS: Omeprazole/Na Bicarb Oral Susp 20 MG/10 ML UD Cup G-TUBE ×2 (06:09→16:53)
[2023-03-30] MEDS: Metoclopramide HCl 10 MG TABLET PO (06:09)
[2023-03-30] MEDS: Insulin Lispro 100 UNIT/ML 3 ML VIAL SUBCUT ×2 (06:09→17:57)
[2023-03-30] MEDS: levalbuterol HCL 1.25 MG/3 ML VIAL.NEB INHALE ×3 (07:50→19:09)
[2023-03-30 09:04] LABS: Anion Gap 9 (12-20); Blood Urea Nitrogen 6 mg/dL (9-16); Carbon Dioxide 24 mmol/L (22-29); Chloride 109 mmol/L (96-108); Creatinine Clr Calc Pharmacy 111.4; Estimated Glomerular Filt Rate > 60; Glucose Random 109 mg/dL (60-115); Potassium 3.4 mmol/L (3.3-5.1); Sodium 139 mmol/L (135-145)
[2023-03-30] MEDS: Lactated Ringers 1,000 ML 100 ML IVCONT ×2 (09:35→20:11)
[2023-03-30] MEDS: Apixaban 5 MG TABLET G-TUBE ×2 (09:36→20:12)
--- NOTE | 2023-03-30 10:53 | W.PM.OPN ---
Operative Note Operative Note Date of Service: 03/30/23 Narrative: PreOperative Diagnosis:?neurogenic bladder Post Operative Diagnosis:?neurogenic bladder Procedure:? 1. Cystoscopy 2. Suprapubic tube placement Surgeon: Dr Tono Hyde Anesthesia:?Sedation plus local Indications for procedure: Failed Quinn catheter voiding trial x2. cystoscopy with open bladder neck Procedure: After informed consent was verified the patient was brought to the operating room and placed in a supine position.? Anesthesia was administered per protocol. The patient was placed in a modified dorsal lithotomy position and prepped and draped in a sterile fashion. A safety pause was performed confirming patient identity, procedure and antibiotics. A 22 Kinyarwanda cystoscope was inserted per urethra. Bladder was examined in its entirety. No abnormalities seen. Air bubble was located at the dome of the bladder. A finder needle was inserted 2 fingerbreaths above the symphysis pubis on the abdomen into the bladder.? The needle was visualized in the bladder via cystoscopy. Local anesthetic was infiltrated subcutaneously around the needle introduction site. A small, 1cm horizontal incision was made.? A trocar introducer was advanced through the abdominal wall into the bladder under visualization. The obturator was removed and a 16 Fr quinn catheter placed. 7cc was used to inflate the balloon. The external portion of the trocar was removed. Dressing was placed, the bladder was emptied, and a drainage bag was attached. The patient tolerated the procedure and was transferred in stable condition to the recovery area. Suprapubic tube will be changed in 1 month with a follow-up office visit.
--- NOTE | 2023-03-30 11:05 | MHC.CM.PN ---
EMR reviewed and per MD rounds, pt is not medically cleared for D/C today, pt underwent a cystoscopy and suprapubic tube placement today. CM will continue to follow.
[2023-03-30 12:23] LABS: Glucose, Whole Blood 142 mg/dL (60-115)
[2023-03-30] MEDS: Metoclopramide HCl 10 MG TABLET G-TUBE ×2 (12:28→17:57)
--- NOTE | 2023-03-30 13:27 | MHC.CLN ---
F/U PT TRANSFERRED BACK TO MEDICAL FLOOR FROM ICU TF CURRENTLY TOLERATING GLUCERNA AT MAX GOAL RATE AT 85ML/HR WITH 120ML Q 8 HR PROVIDES 2040KCALS (29KCALS/KG), 85G PROTEIN (1.2G/KG), 2100ML TOTAL WATER FROM FORMULA AND FLUSHES (30ML/KG) MONITOR TOLERANCE, RESIDUALS, AND LYTES
--- NOTE | 2023-03-30 14:37 | P.PNIM_ITS ---
Subjective Subjective Date of Service: 03/30/23 Interval History: Fungemia ,anemia Review of Systems seems more awake no fevers Physical Exam 2 Vital Signs: Vital Signs: Last Vital Signs Temp 97.8 F 03/30/23 14:00 Pulse 84 03/30/23 14:06 Resp 18 03/30/23 14:06 BP 126/58 L 03/30/23 14:00 Pulse Ox 95 03/30/23 14:00 O2 Del Method Room Air 03/30/23 14:00 O2 Flow Rate 30 03/20/23 13:00 FiO2 21 03/21/23 11:53 BMI result Body Mass Index 27.6 Appearance: Awake alert interactive (baseline). cvs: rrr, [id number] . res: air entry fair , few scattered rhonchii abd: soft,nt, bs present.Colostomy bag appears to be functioning (site is clean ,bag little liquid stool) no more oozing from abd incison area ext pulses present , no cyanosis . Objective Data Active Medications Acetaminophen (Acetaminophen 325 Mg Tablet) 650 mg G-TUBE Q6H PRN PRN Reason: Fever Last Admin: 03/25/23 09:29 Dose: 650 mg Documented By: LOUANN Apixaban (Apixaban 5 Mg Tablet) 5 mg G-TUBE BID [facility] Last Admin: 03/30/23 09:36 Dose: 5 mg Documented By: SYED Dextrose (Dextrose 50 % 25 Gm/50 Ml Syringe) 25 gm IVPUSH STAT PRN; Protocol PRN Reason: Hypoglycemia Last Admin: 03/22/23 06:01 Dose: 25 gm Documented By: SHAMIR Caspofungin 50 mg/ Sodium (Chloride) 250 mls @ 250 mls/hr IV Q24H [facility] Last Infusion: 03/29/23 19:10 Dose: Infused Documented By: MIGUEL ANGEL Lactated Ringer's (Lr) 1,000 mls @ 100 mls/hr IVCONT .Q10H [facility] Last Admin: 03/30/23 09:35 Dose: 100 mls/hr Documented By: SYED Insulin Human Lispro (Insulin Lispro 100 Unit/Ml 3 Ml Vial) 0 unit SUBCUT Q6H [facility]; Protocol Last Admin: 03/30/23 12:26 Dose: Not Given Documented By: HO.DOBROB Non-Admin Reason: No Insulin Coverage Levalbuterol HCl (Levalbuterol Hcl 1.25 Mg/3 Ml Vial.Neb) 1.25 mg INHALE RTID [facility] Last Admin: 03/30/23 14:05 Dose: 1.25 mg Documented By: BLASCL Metoclopramide HCl (Metoclopramide Hcl 10 Mg Tablet) 10 mg G-TUBE Q6H [facility] Last Admin: 03/30/23 12:28 Dose: 10 mg Documented By: DOBROB Omeprazole (Omeprazole/Na Bicarb Oral Susp 20 Mg/10 Ml Ud Cup) 20 mg G-TUBE BID@0630,1630 [facility] Last Admin: 03/30/23 06:09 Dose: 20 mg Documented By: LYSZ Labs 03/30/23 08:17 03/30/23 08:17 Labs: Laboratory Results - last 24 hr 03/29/23 03/29/23 03/30/23 17:35 23:38 05:44 Anion Gap Estim Creat Clear Calc Estimated GFR POC Glucose 172 H 140 H 156 H Random Glucose Calcium 03/30/23 03/30/23 08:17 12:19 Anion Gap 9 L Estim Creat Clear Calc 111.4 Estimated GFR > 60 POC Glucose 142 H Random Glucose 109 Calcium 9.0 Microbiology Microbiology Results: Microbiology 03/27/23 15:41 Blood Culture - Preliminary Blood - Venous No growth after 48 hours. 03/27/23 15:42 Blood Culture - Preliminary Blood - Venous No growth after 48 hours. Assessment and Plan (1) Anemia: Status: Acute (2) Fungemia: Status: Acute Plan 62-year-old male with past medical history significant for coronary artery disease status post CABG, paroxysmal AFib, COPD, dm 2 in the backdrop of paranoid schizophrenia presents with what likely represented aspiration from [facility].? Was intubated in emergency room and transferred to ICU.? Feedings were stopped at that time.? During ICU stay, accounts receivable associate noted that there was scant output from colostomy bag.? Concern was for stricture.? Patient was maintained on NPO status and broad-spectrum antibiotics were initiated.? Patient was subsequently extubated without issue and did well in the immediate post extubation period.? He was transferred to telemetry and by my observation is back to his baseline as he was at [facility].? Feedings continue to be held. Patient back went to ICU on 03/25/23 -03/26/23: bodelrine blood pressure -multifactorial ( high colostomy out , ? anemia -some slow oozing from his surgery incison area) Pressure improved with IV fluids and also received 2 PRBC. Subsequently patient was sent to floor on 03/26/2023. Acute hypoxic respiratory failure likely secondary to aspiration pneumonia intermittent fevers , has cough cxr (03/24) -slightly improving air space dis . res panel neg d/w Id dc continue Zosyn (5 days total got),tylenol prn for fevers ,wean off O2. Possible fungemia-question urinary source. previously 02/20 urine culture grew boone glabrata-( given caspofungin for 1 week-as per 03/05/23 hospitalist note). blood culture x3 -grew yeast, repeat blood cultures @48hrs trenasthoracic echo : 1. No obvious vegetations seen on this study 2. Normal LV ejection fraction 55-60% with grade 2 diastolic dysfunction 3. Mildly dilated left atrium 4. Normal cardiac valvular Doppler 5. Normal measured RV systolic pressure 6. No gross pericardial effusion . started on caspofungin(started on 03/25/23), id recomended -urology eval ,also further duration of antibiotics needs to decide after blood cultures neg 48hrs, also patient will need opthalomology exam outpatient considering fungemia . moniter blood pressure closely. Dysphagia (query secondary to dysmotility)-likely secondary to overall constellation of comorbidities at the time of admission; no overt neurological event patient started on erythromycin IV along with Reglan to increase motility in ICU off erythromycin and follow clinically. Reglan switched to PEG tube-start slow on tube feedings high output colostomy -on ivf LR @ 100 ml/hr ,moniter colostomy output as per dr hope's note:upon return to [facility],speech eval to assess swallow. encourage out of bed while feedings. Acute blood loss anemia on chronic anemia- may be slow oozing from surgery colostomy side/iv fluids contributing(dilutional) occult blood neg x2 patient received 2 and PC H&H is stable around 9.5 d/w Gi- no acute intervention. moniter h/h is around 10.5 range , eliquis started . Type 2 diabetes- continue lispro correctional scale while in-house adjust therapies as indicated Paranoid schizophrenia-patient has been off clozaril for approximately 1- 2week...? Behaviors stable reassess need when returns to [facility]. Paroxysmal atrial fibrillation-acceptable rate control presently continue Eliquis,adjust therapies as clinically indicated DNR/DNI Eliquis. ongoing hospitalization Fungemia:need iv cospofungin , repeat blood cultures pending , moniter colostomy output , urology eval for recurrent fugemia and catheter change Time Spent With Patient Time: Total time managing care of this patient today ____ minutes. Quality Stroke Does the patient have a stroke diagnosis?: No VTE Prior VTE?: No VTE Risk Level:: Medical - moderate - high VTE Device Contraindication: N/A - Device Ordered VTE Drug Contraindication: Treatment Not Tolerated
[2023-03-30] MEDS: Caspofungin Acetate 50 MG in 0.9 % Sodium Chloride 250 ML 250 MG IV (16:53)
[2023-03-30 17:49] LABS: Glucose, Whole Blood 169 mg/dL (60-115)
[2023-03-30 23:59] LABS: Glucose, Whole Blood 178 mg/dL (60-115)
[2023-03-31] VITALS (8 sets, daily range): BP systolic 120–129; BP diastolic 64–81; PULSE 73–109; RESP 13–18; TEMP 36.1–37.3; O2SAT 93–96; BMI 27.2
[2023-03-31] MEDS: Insulin Lispro 100 UNIT/ML 3 ML VIAL SUBCUT ×4 (02:33→18:10)
[2023-03-31] MEDS: Metoclopramide HCl 10 MG TABLET G-TUBE ×4 (02:34→18:10)
[2023-03-31 06:04] LABS: Glucose, Whole Blood 166 mg/dL (60-115)
[2023-03-31 06:43] LABS: Hematocrit 32.1 % (42.0-52.0); Hemoglobin 10.4 g/dl (14.0-18.0)
[2023-03-31] MEDS: Omeprazole/Na Bicarb Oral Susp 20 MG/10 ML UD Cup G-TUBE ×2 (08:01→15:55)
[2023-03-31] MEDS: levalbuterol HCL 1.25 MG/3 ML VIAL.NEB INHALE ×2 (08:35→19:55)
[2023-03-31] MEDS: Lactated Ringers 1,000 ML 100 ML IVCONT ×2 (09:05→18:13)
[2023-03-31] MEDS: Apixaban 5 MG TABLET G-TUBE ×2 (09:07→21:32)
--- NOTE | 2023-03-31 09:50 | P.PNIM_ITS ---
Subjective Subjective Date of Service: 03/31/23 Interval History: No new issue Physical Exam 2 Vital Signs: Vital Signs: Last Vital Signs Temp 98.6 F 03/31/23 08:17 Pulse 95 03/31/23 08:35 Resp 15 03/31/23 08:35 BP 126/72 03/31/23 08:17 Pulse Ox 94 03/31/23 08:17 O2 Del Method Room Air 03/31/23 08:17 O2 Flow Rate 30 03/20/23 13:00 FiO2 21 03/21/23 11:53 BMI result Body Mass Index 27.2 Appearance: Awake alert interactive (baseline). cvs: rrr, [id number] . res: air entry fair , few scattered rhonchii abd: soft,nt, bs present.Colostomy bag appears to be functioning (site is clean ,bag little liquid stool) no more oozing from abd incison area ext pulses present , no cyanosis . Objective Data Active Medications Acetaminophen (Acetaminophen 325 Mg Tablet) 650 mg G-TUBE Q6H PRN PRN Reason: Fever Last Admin: 03/25/23 09:29 Dose: 650 mg Documented By: LOUANN Apixaban (Apixaban 5 Mg Tablet) 5 mg G-TUBE BID [facility] Last Admin: 03/31/23 09:07 Dose: 5 mg Documented By: RAMIRO Dextrose (Dextrose 50 % 25 Gm/50 Ml Syringe) 25 gm IVPUSH STAT PRN; Protocol PRN Reason: Hypoglycemia Last Admin: 03/22/23 06:01 Dose: 25 gm Documented By: SHAMIR Caspofungin 50 mg/ Sodium (Chloride) 250 mls @ 250 mls/hr IV Q24H [facility] Last Infusion: 03/30/23 18:04 Dose: Infused Documented By: SYED Lactated Ringer's (Lr) 1,000 mls @ 100 mls/hr IVCONT .Q10H [facility] Last Admin: 03/31/23 09:05 Dose: 100 mls/hr Documented By: RAMIRO Insulin Human Lispro (Insulin Lispro 100 Unit/Ml 3 Ml Vial) 0 unit SUBCUT Q6H [facility]; Protocol Last Admin: 03/31/23 08:01 Dose: 2 unit Documented By: IRINA Levalbuterol HCl (Levalbuterol Hcl 1.25 Mg/3 Ml Vial.Neb) 1.25 mg INHALE RTID [facility] Last Admin: 03/31/23 08:35 Dose: 1.25 mg Documented By: AVA Metoclopramide HCl (Metoclopramide Hcl 10 Mg Tablet) 10 mg G-TUBE Q6H [facility] Last Admin: 03/31/23 08:01 Dose: 10 mg Documented By: IRINA Omeprazole (Omeprazole/Na Bicarb Oral Susp 20 Mg/10 Ml Ud Cup) 20 mg G-TUBE BID@0630,1630 [facility] Last Admin: 03/31/23 08:01 Dose: 20 mg Documented By: IRINA Labs 03/31/23 06:24 03/30/23 08:17 Labs: Laboratory Results - last 24 hr 03/30/23 03/30/23 03/30/23 12:19 17:45 23:54 POC Glucose 142 H 169 H 178 H 03/31/23 05:59 POC Glucose 166 H Assessment and Plan (1) Anemia: Status: Acute (2) Fungemia: Status: Acute Plan 62-year-old male with past medical history significant for coronary artery disease status post CABG, paroxysmal AFib, COPD, dm 2 in the backdrop of paranoid schizophrenia presents with what likely represented aspiration from [facility].? Was intubated in emergency room and transferred to ICU.? Feedings were stopped at that time.? During ICU stay, tour consultant noted that there was scant output from colostomy bag.? Concern was for stricture.? Patient was maintained on NPO status and broad-spectrum antibiotics were initiated.? Patient was subsequently extubated without issue and did well in the immediate post extubation period.? Patient went back to ICU on 03/25/23 -03/26/23: bodelrine blood pressure -multifactorial ( high colostomy out , ? anemia -some slow oozing from his surgery incison area) Pressure improved with IV fluids and also received 2 PRBC. Subsequently patient was sent to floor on 03/26/2023. Acute hypoxic respiratory failure likely secondary to aspiration pneumonia intermittent fevers , has cough cxr (03/24) -slightly improving air space dis . res panel neg d/w Id dc continue Zosyn (5 days total got),tylenol prn for fevers ,wean off O2. Possible fungemia-question urinary source. previously 8/04 urine culture grew boone glabrata-( given caspofungin for 1 week-as per 03/05/23 hospitalist note). blood culture x3 -grew yeast, repeat blood cultures @48hrs trenasthoracic echo : 1. No obvious vegetations seen on this study 2. Normal LV ejection fraction 55-60% with grade 2 diastolic dysfunction 3. Mildly dilated left atrium 4. Normal cardiac valvular Doppler 5. Normal measured RV systolic pressure 6. No gross pericardial effusion . started on caspofungin(started on 03/25/23), id recomended -urology eval ,also further duration of antibiotics needs to decide after blood cultures neg 48hrs, also patient will need opthalomology exam outpatient considering fungemia . moniter blood pressure closely. Dysphagia (query secondary to dysmotility)-likely secondary to overall constellation of comorbidities at the time of admission; no overt neurological event patient started on erythromycin IV along with Reglan to increase motility in ICU off erythromycin and follow clinically. Reglan switched to PEG tube-start slow on tube feedings high output colostomy -on ivf LR @ 100 ml/hr ,moniter colostomy output as per dr hope's note:upon return to [facility],speech eval to assess swallow. encourage out of bed while feedings. Acute blood loss anemia on chronic anemia- may be slow oozing from surgery colostomy side/iv fluids contributing(dilutional) occult blood neg x2 patient received 2 and PC H&H is stable around 9.5 d/w Gi- no acute intervention. moniter h/h is around 10.5 range , eliquis started . Type 2 diabetes- continue lispro correctional scale while in-house adjust therapies as indicated Paranoid schizophrenia-patient has been off clozaril for approximately 1- 2week...? Behaviors stable reassess need when returns to [facility]. Paroxysmal atrial fibrillation-acceptable rate control presently continue Eliquis,adjust therapies as clinically indicated DNR/DNI Eliquis. ongoing hospitalization Fungemia:need iv cospofungin , repeat blood cultures pending , moniter colostomy output , urology eval for recurrent fugemia and catheter change Time Spent With Patient Time: Total time managing care of this patient today ____ minutes. Quality Stroke Does the patient have a stroke diagnosis?: No VTE Prior VTE?: No VTE Risk Level:: Medical - moderate - high VTE Device Contraindication: N/A - Device Ordered VTE Drug Contraindication: Treatment Not Tolerated
[2023-03-31 11:45] LABS: Glucose, Whole Blood 152 mg/dL (60-115)
--- NOTE | 2023-03-31 13:52 | P.PNUR_ITS ---
Subjective Subjective Date of Service: 03/31/23 Interval history: Called to reevaluated due to fungemia. the patient had quinn placed on this admission for urinary retention s/p exploratory laparotomy, De torsion of sigmoid volvulus, sigmoid resection, end colostomy, Hafsa's pouch by general surgery 02/23/23 on recent admission urine c/s 03/13/23 no growth Abd wound c/s 03/26/23 no growth blood c/s 03/20/23 and 03/24/23 Jessica Infectious Disease following Exam - opening of inferior portion of abdominal incision near the pubis. Recommend cont quinn Physical Exam 2 Vital Signs: Vital Signs: Last Vital Signs Temp 99.2 F 03/31/23 11:39 Pulse 100 03/31/23 11:39 Resp 15 03/31/23 11:39 BP 120/75 03/31/23 11:39 Pulse Ox 96 03/31/23 11:39 O2 Del Method Room Air 03/31/23 11:39 O2 Flow Rate 30 03/20/23 13:00 FiO2 21 03/21/23 11:53 BMI result Body Mass Index 27.2 Urology Results Labs 03/31/23 06:24 03/30/23 08:17 Labs: Laboratory Results - last 24 hr 03/30/23 03/30/23 03/31/23 17:45 23:54 05:59 Hgb Hct POC Glucose 169 H 178 H 166 H 03/31/23 03/31/23 06:24 11:37 Hgb 10.4 L Hct 32.1 L POC Glucose 152 H Progress Note: A&P Assessment and plan (1) Fungemia: Status: Acute (2) Urinary retention: Status: Acute Plan urine c/s 03/13/23 no growth Abd wound c/s --03/26/23 -no growth blood c/s 03/20/23 and 03/24/23 Jessica Abx per ID Recommend cont quinn Time Spent With Patient Time: Total time managing care of this patient today ____ minutes. Progress Note: Quality Stroke Does the patient have a stroke diagnosis?: No
[2023-03-31] MEDS: Acetaminophen 325 MG TABLET 650 MG G-TUBE (16:17)
[2023-03-31 16:27] LABS: Glucose, Whole Blood 168 mg/dL (60-115)
--- NOTE | 2023-03-31 17:08 | PC.NURSE ---
Bridge Engineer on previous shift emptied but did not chart. RN aware
[2023-03-31] MEDS: Caspofungin Acetate 50 MG in 0.9 % Sodium Chloride 250 ML 250 MG IV (17:18)
[2023-03-31 23:39] LABS: Glucose, Whole Blood 180 mg/dL (60-115)
[2023-04-01] MEDS: Insulin Lispro 100 UNIT/ML 3 ML VIAL SUBCUT ×3 (00:48→17:15)
[2023-04-01] MEDS: Metoclopramide HCl 10 MG TABLET G-TUBE ×4 (00:48→17:15)
[2023-04-01 03:48] VITALS: BP 124/65; PULSE 73; RESP 18; TEMP 36.6; O2SAT 94
[2023-04-01] MEDS: Lactated Ringers 1,000 ML 100 ML IVCONT (04:25)
[2023-04-01] MEDS: Omeprazole/Na Bicarb Oral Susp 20 MG/10 ML UD Cup G-TUBE ×2 (05:09→17:15)
[2023-04-01 05:55] LABS: Glucose, Whole Blood 142 mg/dL (60-115)
[2023-04-01 07:27] VITALS: BP 113/63; PULSE 82; RESP 20; TEMP 36.3; O2SAT 97
[2023-04-01 08:00] VITALS: BMI 27.6
--- NOTE | 2023-04-01 09:24 | P.PNIM_ITS ---
Subjective Subjective Date of Service: 04/01/23 Interval History: Stable , no new issues Physical Exam 2 Vital Signs: Vital Signs: Last Vital Signs Temp 97.4 F 04/01/23 07:27 Pulse 82 04/01/23 07:27 Resp 20 04/01/23 07:27 BP 113/63 04/01/23 07:27 Pulse Ox 97 04/01/23 07:27 O2 Del Method Room Air 04/01/23 07:27 O2 Flow Rate 30 03/20/23 13:00 FiO2 21 03/21/23 11:53 BMI result Body Mass Index 27.2 Objective Data Active Medications Acetaminophen (Acetaminophen 325 Mg Tablet) 650 mg G-TUBE Q6H PRN PRN Reason: Fever Last Admin: 03/31/23 16:17 Dose: 650 mg Documented By: RAMIRO Apixaban (Apixaban 5 Mg Tablet) 5 mg G-TUBE BID [facility] Last Admin: 03/31/23 21:32 Dose: 5 mg Documented By: MORGAN Dextrose (Dextrose 50 % 25 Gm/50 Ml Syringe) 25 gm IVPUSH STAT PRN; Protocol PRN Reason: Hypoglycemia Last Admin: 03/22/23 06:01 Dose: 25 gm Documented By: SHAMIR Caspofungin 50 mg/ Sodium (Chloride) 250 mls @ 250 mls/hr IV Q24H [facility] Last Infusion: 03/31/23 18:23 Dose: Infused Documented By: RAMIRO Insulin Human Lispro (Insulin Lispro 100 Unit/Ml 3 Ml Vial) 0 unit SUBCUT Q6H [facility]; Protocol Last Admin: 04/01/23 05:57 Dose: Not Given Documented By: MORGAN Non-Admin Reason: No Insulin Coverage Metoclopramide HCl (Metoclopramide Hcl 10 Mg Tablet) 10 mg G-TUBE Q6H [facility] Last Admin: 04/01/23 05:09 Dose: 10 mg Documented By: MORGAN Omeprazole (Omeprazole/Na Bicarb Oral Susp 20 Mg/10 Ml Ud Cup) 20 mg G-TUBE BID@0630,1630 [facility] Last Admin: 04/01/23 05:09 Dose: 20 mg Documented By: MORGAN Labs 03/31/23 06:24 03/30/23 08:17 Labs: Laboratory Results - last 24 hr 03/31/23 03/31/2323 11:37 16:24 23:35 POC Glucose 152 H 168 H 180 H 04/01/23 05:50 POC Glucose 142 H Assessment and Plan (1) Anemia: Status: Acute (2) Fungemia: Status: Acute Plan 62-year-old male with past medical history significant for coronary artery disease status post CABG, paroxysmal AFib, COPD, dm 2 in the backdrop of paranoid schizophrenia presents with what likely represented aspiration from [facility].? Was intubated in emergency room and transferred to ICU.? Feedings were stopped at that time.? During ICU stay, shipping associate noted that there was scant output from colostomy bag.? Concern was for stricture.? Patient was maintained on NPO status and broad-spectrum antibiotics were initiated.? Patient was subsequently extubated without issue and did well in the immediate post extubation period.? Patient went back to ICU on 03/25/23 -03/26/23: bodelrine blood pressure -multifactorial ( high colostomy out , ? anemia -some slow oozing from his surgery incison area) Pressure improved with IV fluids and also received 2 PRBC. Subsequently patient was sent to floor on 03/26/2023. Acute hypoxic respiratory failure likely secondary to aspiration pneumonia intermittent fevers , has cough cxr (03/24) -slightly improving air space dis . res panel neg d/w Id dc continue Zosyn (5 days total got),tylenol prn for fevers ,wean off O2. Fungemia--likely urinary source, has had it in urine before and was treated for 1 week in February. Repeat culture negative, will get a PICC line for 21 days total per ID Open wound in abdomen, source unclear, willhave surgery look at it, might need CT of abdomen Dysphagia (query secondary to dysmotility)-likely secondary to overall constellation of comorbidities at the time of admission; no overt neurological event has PEG, tolerating feed Acute blood loss anemia on chronic anemia- may be slow oozing from surgery colostomy side/iv fluids contributing(dilutional) occult blood neg x2 patient received 2 and PC H&H is stable around 9.5 d/w Gi- no acute intervention. moniter h/h is around 10.5 range , eliquis started . Type 2 diabetes- continue lispro correctional scale while in-house adjust therapies as indicated Paranoid schizophrenia-patient has been off clozaril for approximately 1- 2week...? Behaviors stable reassess need when returns to [facility]. Paroxysmal atrial fibrillation-acceptable rate control presently continue Eliquis,adjust therapies as clinically indicated DNR/DNI Eliquis. ongoing hospitalization Fungemia:need iv cospofungin , repeat blood cultures pending , moniter colostomy output , urology eval for recurrent fugemia and catheter change Time Spent With Patient Time: Total time managing care of this patient today ____ minutes. Quality Stroke Does the patient have a stroke diagnosis?: No VTE Prior VTE?: No VTE Risk Level:: Medical - moderate - high VTE Device Contraindication: N/A - Device Ordered VTE Drug Contraindication: Treatment Not Tolerated
--- NOTE | 2023-04-01 10:38 | MHC.CLN ---
F/U REVIEWED LABS PT CURRENTLY TOLERATING GLUCERNA AT MAX GOAL RATE AT 85ML/HR WITH 120ML Q 8 HR PROVIDES 2040KCALS (29KCALS/KG), 85G PROTEIN (1.2G/KG), 2100ML TOTAL WATER FROM FORMULA AND FLUSHES (30ML/KG) CONTINUE TO MONITOR TOLERANCE, RESIDUALS, AND LYTES
[2023-04-01] MEDS: Apixaban 5 MG TABLET G-TUBE (10:40)
[2023-04-01 11:13] VITALS: BP 133/74; PULSE 81; RESP 20; TEMP 36.3; O2SAT 97
[2023-04-01 11:57] LABS: Glucose, Whole Blood 187 mg/dL (60-115)
--- NOTE | 2023-04-01 13:15 | HO.SKINPHOTO ---
Location: coccyx Category: Stage: stage 1 L buttock, stage 2 coccyx Length: Width: Depth: cm Location: Category: Stage: Length: Width: Depth: cm Location: Category: Stage: Length: Width: Depth: cm Location: Category: Stage: Length: Width: Depth: cm Location: Category: Stage: Length: Width: Depth: cm Location: Category: Stage: Length: Width: Depth: cm
[2023-04-01 15:32] VITALS: BP 109/58; PULSE 82; RESP 24; TEMP 36.9; O2SAT 96
[2023-04-01 16:20] LABS: Glucose, Whole Blood 193 mg/dL (60-115)
[2023-04-01] MEDS: Caspofungin Acetate 50 MG in 0.9 % Sodium Chloride 250 ML 250 MG IV (17:15)
[2023-04-01 19:49] VITALS: BP 145/68; PULSE 89; RESP 18; TEMP 37.1; O2SAT 93
[2023-04-01 23:24] VITALS: BP 98/74; PULSE 86; RESP 18; TEMP 36.4; O2SAT 94
--- NOTE | 2023-04-01 23:36 | P.CONWO_ITS ---
History of Present Illness Data of Consult Service Date: 04/01/23 [facility] Provider: Lamonte Jenkins DO HPI Reason for consult: sacral wound 62-year-old male with past medical history significant for coronary artery disease status post CABG, paroxysmal AFib, COPD, dm 2 in the backdrop of paranoid schizophrenia presents with what likely represented aspiration from [facility].? Was intubated in emergency room and transferred to ICU.? Feedings were stopped at that time.? During ICU stay, business taxes specialist noted that there was scant output from colostomy bag.? Concern was for stricture.? Patient was maintained on NPO status and broad-spectrum antibiotics were initiated.? Patient was subsequently extubated without issue and did well in the immediate post extubation period.? Pt has developed erythema and superficial skin breakdown in one area of his sacrum. 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 Paranoid schizophrenia Hyperlipidemia Hypothyroidism Anemia Encephalopathy Drug induced subacute dyskinesia Cognitive impairment Exotropia, alternating, with A pattern Hypermetropia of both eyes Dysphagia Boutonniere deformity of finger COVID-19 Type 2 diabetes mellitus COPD (chronic obstructive pulmonary disease) Dementia Surgical History Presence of aortocoronary bypass graft Social History Household Members: Unknown / Unable to assess Household Members Other:: [facility] Housing: [facility] Housing Other:: [facility] Do you presently have visiting nurse or other home services: No Unable to assess alcohol history related to: Unable to respond Patient Tobacco Use Status: Former Tobacco user Tobacco use type: Cigarette Years Smoked: SURAJ Smoked in Last 30 Days: No Use of substances other than those prescribed or required for medical reasons: Unable to respond Currently Displaying Signs/Symptoms of Drug Intoxication Withdrawal: No Advance Directives: Yes Advance Directives on File: Yes Advance Directives Date on File: 12/14/21 Do you have thoughts of harming others: None Do you have a plan to hurt others: No Plan Recently lost weight without trying: Unsure Nutrition Risks: On aspiration precautions Poor oral hygiene: Yes service: No Current occupational status: disabled Meds Allergies Allergy/AdvReac Type Severity Reaction Status Date / Time No Known Allergies Allergy Unverified 04/05/20 19:36 [No Known Allergies*] Active Medications: Current Medications Acetaminophen (Acetaminophen 325 Mg Tablet) 650 mg G-TUBE Q6H PRN PRN Reason: Fever Last Admin: 03/31/23 16:17 Dose: 650 mg Apixaban (Apixaban 5 Mg Tablet) 5 mg G-TUBE BID [facility] Last Admin: 04/01/23 10:40 Dose: 5 mg Dextrose (Dextrose 50 % 25 Gm/50 Ml Syringe) 25 gm IVPUSH STAT PRN; Protocol PRN Reason: Hypoglycemia Last Admin: 03/22/23 06:01 Dose: 25 gm Caspofungin 50 mg/ Sodium (Chloride) 250 mls @ 250 mls/hr IV Q24H [facility] Last Infusion: 04/01/23 18:26 Dose: Infused Insulin Human Lispro (Insulin Lispro 100 Unit/Ml 3 Ml Vial) 0 unit SUBCUT Q6H [facility]; Protocol Last Admin: 04/01/23 17:15 Dose: 2 unit Metoclopramide HCl (Metoclopramide Hcl 10 Mg Tablet) 10 mg G-TUBE Q6H [facility] Last Admin: 04/01/23 17:15 Dose: 10 mg Omeprazole (Omeprazole/Na Bicarb Oral Susp 20 Mg/10 Ml Ud Cup) 20 mg G-TUBE BID@0630,1630 [facility] Last Admin: 04/01/23 17:15 Dose: 20 mg Home Medications Medication Instructions Recorded Confirmed Last Taken Type insulin glargine 100 unit/mL (3 20 unit subcut BEDTIME 12/13/21 03/20/23 12/12/21 History mL) subcutaneous pen (Lantus Solostar U-100 Insulin) lactulose 10 gram/15 mL oral 30 ml PO DAILY 12/13/21 03/20/23 12/12/21 History solution nicotine 7 mg/24 hr daily 1 patch transdermal Q24H PRN 12/27/22 03/20/23 Unknown History transdermal patch Smoking Cessation sennosides 8.6 mg tablet (senna) 8.6 mg PO DAILY PRN Constipation 12/27/22 03/20/23 Unknown History metoprolol tartrate 25 mg tablet 12.5 mg PO BID 02/20/23 03/20/23 Unknown History amiodarone 200 mg tablet 200 mg G-tube DAILY 03/20/23 03/20/23 Unknown History Physical Exam 2 Vital Signs and Narrative: Vital Signs: Last Vital Signs Temp 97.5 F 04/01/23 23:24 Pulse 86 04/01/23 23:24 Resp 18 04/01/23 23:24 BP 98/74 04/01/23 23:24 Pulse Ox 94 04/01/23 23:24 O2 Del Method Room Air 04/01/23 23:24 O2 Flow Rate 30 03/20/23 13:00 FiO2 21 03/21/23 11:53 BMI result Body Mass Index 27.6 Skin: Other: sacral area of eythema looks improved with small area of skin breakdown to dermis. zinc oxide around Results Labs 03/31/23 06:24 03/30/23 08:17 Labs: Laboratory Results - last 24 hr 03/31/23 04/01/23 04/01/23 23:35 05:50 11:53 POC Glucose 180 H 142 H 187 H 04/01/23 16:17 POC Glucose 193 H Assessment and Plan (1) Pressure injury of sacral region, stage 2: Status: Acute Plan More erythema than actual skin breakdown recommend off loading and turning - pt with air mattress increase protein for malnution - getting tube feeds med management zinc oxide over the area and keep area dry - quinn cath in Time Spent With Patient Time: Total time managing care of this patient today ____ minutes.
[2023-04-01 23:47] LABS: Glucose, Whole Blood 179 mg/dL (60-115)
[2023-04-02] MEDS: Metoclopramide HCl 10 MG TABLET G-TUBE ×4 (00:44→17:48)
[2023-04-02] MEDS: Apixaban 5 MG TABLET G-TUBE ×3 (00:44→21:27)
[2023-04-02] MEDS: Insulin Lispro 100 UNIT/ML 3 ML VIAL SUBCUT ×3 (00:44→18:14)
[2023-04-02 03:56] VITALS: BP 102/74; PULSE 84; RESP 18; TEMP 36.7; O2SAT 98
[2023-04-02 06:03] LABS: Glucose, Whole Blood 167 mg/dL (60-115)
[2023-04-02] MEDS: Omeprazole/Na Bicarb Oral Susp 20 MG/10 ML UD Cup G-TUBE ×2 (06:21→17:48)
[2023-04-02 07:38] VITALS: BP 122/87; PULSE 79; RESP 20; TEMP 37.1; O2SAT 94
[2023-04-02 07:44] VITALS: BMI 25.1
--- NOTE | 2023-04-02 09:43 | P.PNIM_ITS ---
Subjective Subjective Date of Service: 04/02/23 Interval History: Stable , no new issues Physical Exam 2 Vital Signs: Vital Signs: Last Vital Signs Temp 98.8 F 04/02/23 07:38 Pulse 79 04/02/23 07:38 Resp 20 04/02/23 07:38 BP 122/87 04/02/23 07:38 Pulse Ox 94 04/02/23 07:38 O2 Del Method Room Air 04/02/23 07:38 O2 Flow Rate 30 03/20/23 13:00 FiO2 21 03/21/23 11:53 BMI result Body Mass Index 25.1 Const: Other: Appearance: Awake alert interactive (baseline). cvs: rrr, [id number] . res: air entry fair , few scattered rhonchii abd: soft,nt, bs present.Colostomy bag appears to be functioning (site is clean ,bag little liquid stool) no more oozing from abd incison area ext pulses present , no cyanosis . Objective Data Active Medications Acetaminophen (Acetaminophen 325 Mg Tablet) 650 mg G-TUBE Q6H PRN PRN Reason: Fever Last Admin: 03/31/23 16:17 Dose: 650 mg Documented By: RAMIRO Apixaban (Apixaban 5 Mg Tablet) 5 mg G-TUBE BID [facility] Last Admin: 04/02/23 07:59 Dose: 5 mg Documented By: ALVARO Dextrose (Dextrose 50 % 25 Gm/50 Ml Syringe) 25 gm IVPUSH STAT PRN; Protocol PRN Reason: Hypoglycemia Last Admin: 03/22/23 06:01 Dose: 25 gm Documented By: SHAMIR Caspofungin 50 mg/ Sodium (Chloride) 250 mls @ 250 mls/hr IV Q24H [facility] Last Infusion: 04/01/23 18:26 Dose: Infused Documented By: ARIANNAORRYesi Insulin Human Lispro (Insulin Lispro 100 Unit/Ml 3 Ml Vial) 0 unit SUBCUT Q6H [facility]; Protocol Last Admin: 04/02/23 06:22 Dose: Not Given Documented By: TARA Non-Admin Reason: Per nurse Metoclopramide HCl (Metoclopramide Hcl 10 Mg Tablet) 10 mg G-TUBE Q6H [facility] Last Admin: 04/02/23 06:21 Dose: 10 mg Documented By: HO.KUDRYAD Omeprazole (Omeprazole/Na Bicarb Oral Susp 20 Mg/10 Ml Ud Cup) 20 mg G-TUBE BID@0630,1630 [facility] Last Admin: 04/02/23 06:21 Dose: 20 mg Documented By: TARA Labs 03/31/23 06:24 03/30/23 08:17 Labs: Laboratory Results - last 24 hr 04/01/23 04/01/23 04/01/23 11:53 16:17 23:43 POC Glucose 187 H 193 H 179 H 04/02/23 05:57 POC Glucose 167 H Microbiology Microbiology Results: Microbiology 03/27/23 15:41 Blood Culture - Final Blood - Venous No growth after 5 days. 03/27/23 15:42 Blood Culture - Final Blood - Venous No growth after 5 days. Assessment and Plan (1) Anemia: Status: Acute (2) Fungemia: Status: Acute Plan 62-year-old male with past medical history significant for coronary artery disease status post CABG, paroxysmal AFib, COPD, dm 2 in the backdrop of paranoid schizophrenia presents with what likely represented aspiration from [facility].? Was intubated in emergency room and transferred to ICU.? Feedings were stopped at that time.? During ICU stay, healthcare consultant noted that there was scant output from colostomy bag.? Concern was for stricture.? Patient was maintained on NPO status and broad-spectrum antibiotics were initiated.? Patient was subsequently extubated without issue and did well in the immediate post extubation period.? Patient went back to ICU on 03/25/23 -03/26/23: bodelrine blood pressure -multifactorial ( high colostomy out , ? anemia -some slow oozing from his surgery incison area) Pressure improved with IV fluids and also received 2 PRBC. Subsequently patient was sent to floor on 03/26/2023. Acute hypoxic respiratory failure likely secondary to aspiration pneumonia intermittent fevers , has cough cxr (03/24) -slightly improving air space dis . res panel neg d/w Id dc continue Zosyn (5 days total got),tylenol prn for fevers ,wean off O2. Fungemia--likely urinary source, has had it in urine before and was treated for 1 week in February. Repeat culture negative, will get a PICC line for 21 days total per ID Open wound in abdomen, source unclear, willhave surgery look at it Dysphagia (query secondary to dysmotility)-likely secondary to overall constellation of comorbidities at the time of admission; no overt neurological event has PEG, tolerating feed Acute blood loss anemia on chronic anemia- may be slow oozing from surgery colostomy side/iv fluids contributing(dilutional) occult blood neg x2 patient received 2 and PC H&H is stable around 9.5 d/w Gi- no acute intervention. moniter h/h is around 10.5 range , eliquis started . Type 2 diabetes- continue lispro correctional scale while in-house adjust therapies as indicated Paranoid schizophrenia-patient has been off clozaril for approximately 1- 2week...? Behaviors stable reassess need when returns to [facility]. Paroxysmal atrial fibrillation-acceptable rate control presently continue Eliquis,adjust therapies as clinically indicated DNR/DNI Eliquis. ongoing hospitalization Fungemia:need iv cospofungin , repeat blood cultures pending , moniter colostomy output , urology eval for recurrent fugemia and catheter change Time Spent With Patient Time: Total time managing care of this patient today ____ minutes. Quality Stroke Does the patient have a stroke diagnosis?: No VTE Prior VTE?: No VTE Risk Level:: Medical - moderate - high VTE Device Contraindication: N/A - Device Ordered VTE Drug Contraindication: Treatment Not Tolerated
[2023-04-02 11:37] VITALS: BP 132/69; PULSE 75; RESP 20; TEMP 36.3; O2SAT 96
[2023-04-02 11:57] LABS: Glucose, Whole Blood 177 mg/dL (60-115)
[2023-04-02 15:46] VITALS: BP 122/83; PULSE 98; RESP 18; TEMP 36.7; O2SAT 97
--- NOTE | 2023-04-02 16:19 | HO.SKINPHOTO ---
Location: [facility] Category: Stage: Length: 5 Width: 8 Depth: cm Raised red area, warm to touch. MD aware Location: Category: Stage: Length: Width: Depth: cm Location: Category: Stage: Length: Width: Depth: cm Location: Category: Stage: Length: Width: Depth: cm Location: Category: Stage: Length: Width: Depth: cm Location: Category: Stage: Length: Width: Depth: cm
[2023-04-02 18:04] LABS: Vitamin K1 >2500 pg/mL (130-1500)
[2023-04-02 18:13] LABS: Glucose, Whole Blood 170 mg/dL (60-115)
[2023-04-02] MEDS: Caspofungin Acetate 50 MG in 0.9 % Sodium Chloride 250 ML 250 MG IV (18:48)
[2023-04-02 19:36] VITALS: BP 136/66; PULSE 69; RESP 20; TEMP 36.4; O2SAT 94
[2023-04-02 23:43] VITALS: BP 138/61; PULSE 72; RESP 20; TEMP 36.1; O2SAT 96
[2023-04-02 23:52] LABS: Glucose, Whole Blood 162 mg/dL (60-115)
--- NOTE | 2023-04-03 | ECG_ITS ---
Test Reason : check qtc Blood Pressure : / mmHG Vent. Rate : 078 BPM Atrial Rate : 078 BPM P-R Int : 206 ms QRS Dur : 096 ms QT Int : 422 ms P-R-T Axes : 074 008 042 degrees QTc Int : 481 ms Poor data quality, interpretation may be adversely affected Sinus rhythm with Fusion complexes ST & T wave abnormality, consider inferior ischemia ST & T wave abnormality, consider anterior ischemia Abnormal ECG When compared with ECG of 20-MAR-2023 02:32, Fusion complexes are now Present Referred By: Yandel Andersen Electronically Signed By:RICKI YUEN
[2023-04-03] MEDS: Metoclopramide HCl 10 MG TABLET G-TUBE ×3 (00:59→13:54)
[2023-04-03] MEDS: Insulin Lispro 100 UNIT/ML 3 ML VIAL SUBCUT ×3 (00:59→20:56)
[2023-04-03 03:34] VITALS: BP 134/70; PULSE 78; RESP 20; TEMP 36.1; O2SAT 95
[2023-04-03 05:50] LABS: Glucose, Whole Blood 147 mg/dL (60-115)
[2023-04-03] MEDS: Omeprazole/Na Bicarb Oral Susp 20 MG/10 ML UD Cup G-TUBE ×2 (06:03→17:06)
[2023-04-03 07:17] VITALS: BP 138/69; PULSE 82; RESP 20; TEMP 36.1; O2SAT 94
[2023-04-03 08:00] VITALS: BMI 26.0
--- NOTE | 2023-04-03 08:48 | P.PNIM_ITS ---
Subjective Subjective Date of Service: 04/03/23 Interval History: No new issues reported Physical Exam 2 Vital Signs: Vital Signs: Last Vital Signs Temp 97.0 F 04/03/23 07:17 Pulse 82 04/03/23 07:17 Resp 20 04/03/23 07:17 BP 138/69 04/03/23 07:17 Pulse Ox 94 04/03/23 07:17 O2 Del Method Room Air 04/03/23 07:17 O2 Flow Rate 30 03/20/23 13:00 FiO2 21 03/21/23 11:53 BMI result Body Mass Index 25.1 Const: Other: Appearance: Awake alert interactive (baseline). cvs: rrr, [id number] . res: air entry fair , few scattered rhonchii abd: soft,nt, bs present.Colostomy bag appears to be functioning (site is clean ,bag little liquid stool) no more oozing from abd incison area ext pulses present , no cyanosis . Objective Data Active Medications Acetaminophen (Acetaminophen 325 Mg Tablet) 650 mg G-TUBE Q6H PRN PRN Reason: Fever Last Admin: 03/31/23 16:17 Dose: 650 mg Documented By: RAMIRO Apixaban (Apixaban 5 Mg Tablet) 5 mg G-TUBE BID [facility] Last Admin: 04/02/23 21:27 Dose: 5 mg Documented By: SIDNEY Dextrose (Dextrose 50 % 25 Gm/50 Ml Syringe) 25 gm IVPUSH STAT PRN; Protocol PRN Reason: Hypoglycemia Last Admin: 03/22/23 06:01 Dose: 25 gm Documented By: SHAMIR Caspofungin 50 mg/ Sodium (Chloride) 250 mls @ 250 mls/hr IV Q24H [facility] Last Infusion: 04/02/23 20:13 Dose: Infused Documented By: SIDNEY Insulin Human Lispro (Insulin Lispro 100 Unit/Ml 3 Ml Vial) 0 unit SUBCUT Q6H [facility]; Protocol Last Admin: 04/03/23 06:10 Dose: Not Given Documented By: SIDNEY Non-Admin Reason: No Insulin Coverage Metoclopramide HCl (Metoclopramide Hcl 10 Mg Tablet) 10 mg G-TUBE Q6H [facility] Last Admin: 04/03/23 06:03 Dose: 10 mg Documented By: SIDNEY Omeprazole (Omeprazole/Na Bicarb Oral Susp 20 Mg/10 Ml Ud Cup) 20 mg G-TUBE BID@0630,1630 [facility] Last Admin: 04/03/23 06:03 Dose: 20 mg Documented By: SIDNEY Labs 03/31/23 06:24 03/30/23 08:17 Labs: Laboratory Results - last 24 hr 03/26/23 04/02/23 04/02/23 05:00 11:53 18:06 POC Glucose 177 H 170 H Vitamin K1 >2500 H 04/02/23 04/03/23 23:42 05:46 POC Glucose 162 H 147 H Vitamin K1 Microbiology Microbiology Results: Microbiology 03/24/23 14:23 Blood Culture - Final Blood - Venous Jessica glabrata 03/24/23 14:23 Blood Culture - Final Blood - Venous Jessica glabrata 03/20/23 02:52 Blood Culture - Final Blood - Venous Jessica glabrata Assessment and Plan (1) Anemia: Status: Acute (2) Fungemia: Status: Acute Plan 62-year-old male with past medical history significant for coronary artery disease status post CABG, paroxysmal AFib, COPD, dm 2 in the backdrop of paranoid schizophrenia presents with what likely represented aspiration from [facility].? Was intubated in emergency room and transferred to ICU.? Feedings were stopped at that time.? During ICU stay, flight control specialist noted that there was scant output from colostomy bag.? Concern was for stricture.? Patient was maintained on NPO status and broad-spectrum antibiotics were initiated.? Patient was subsequently extubated without issue and did well in the immediate post extubation period.? Patient went back to ICU on 03/25/23 -03/26/23: bodelrine blood pressure -multifactorial ( high colostomy out , ? anemia -some slow oozing from his surgery incison area) Pressure improved with IV fluids and also received 2 PRBC. Subsequently patient was sent to floor on 03/26/2023. Acute hypoxic respiratory failure likely secondary to aspiration pneumonia intermittent fevers , has cough cxr (03/24) -slightly improving air space dis . res panel neg d/w Id dc continue Zosyn (5 days total got),tylenol prn for fevers ,wean off O2. Fungemia--likely urinary source, has had it in urine before and was treated for 1 week in February. Repeat culture negative, will get a PICC line for 21 days total per ID Open wound in abdomen, source unclear, willhave surgery look at it Dysphagia (query secondary to dysmotility)-likely secondary to overall constellation of comorbidities at the time of admission; no overt neurological event has PEG, tolerating feed Acute blood loss anemia on chronic anemia- may be slow oozing from surgery colostomy side/iv fluids contributing(dilutional) occult blood neg x2 patient received 2 and PC H&H is stable around 9.5 d/w Gi- no acute intervention. moniter h/h is around 10.5 range , eliquis started . Type 2 diabetes- continue lispro correctional scale while in-house adjust therapies as indicated Paranoid schizophrenia-patient has been off clozaril for approximately 1- 2week...? Behaviors stable reassess need when returns to [facility]. Paroxysmal atrial fibrillation-acceptable rate control presently continue Eliquis,adjust therapies as clinically indicated DNR/DNI Eliquis. ongoing hospitalization Fungemia:need iv cospofungin , repeat blood cultures pending , moniter colostomy output , urology eval for recurrent fugemia and catheter change Time Spent With Patient Time: Total time managing care of this patient today ____ minutes. Quality Stroke Does the patient have a stroke diagnosis?: No VTE Prior VTE?: No VTE Risk Level:: Medical - moderate - high VTE Device Contraindication: N/A - Device Ordered VTE Drug Contraindication: Treatment Not Tolerated
[2023-04-03] MEDS: Apixaban 5 MG TABLET G-TUBE ×2 (09:07→20:15)
--- NOTE | 2023-04-03 10:48 | MHC.CLN ---
F/U PT CONTINUES TO TOLERATE GLUCERNA AT MAX GOAL RATE AT 85ML/HR WITH 120ML Q 8 HR PROVIDES 2040KCALS (29KCALS/KG), 85G PROTEIN (1.2G/KG), 2100ML TOTAL WATER FROM FORMULA AND FLUSHES (30ML/KG) CONTINUE TO MONITOR TOLERANCE, RESIDUALS, AND LYTES
[2023-04-03 11:05] LABS: Glucose, Whole Blood 199 mg/dL (60-115)
[2023-04-03 11:18] VITALS: BP 123/68; PULSE 76; RESP 20; TEMP 36.3; O2SAT 96
--- NOTE | 2023-04-03 13:08 | MHC.CM.PN ---
Addendum entered by Kierra Jennings RN 04/03/23 15:18: PT NOW GOING TO IR FOR PICC PLACEMENT, IR UNABLE TO PLACE EARLIER D/T TACHHYCARDIA. Addendum entered by Kierra Jennings RN 04/03/23 13:49: PER HOSPITALIST PT WILL BE HELD TONIGHT AND D/C TOMORROW. Original Note: ANTIC PT WILL D/C BACK TO [facility] AFTER PICC LINE PLACED AND THIS EVENINGS DOSE OF IV CAPSOFUNGIN, PT'S FATHER/HCP NOTIFIED AT 12:55PM AND AGREEABLE TO D/C [facility] FOR BLS TRANSPORT.
--- NOTE | 2023-04-03 13:18 | P.DS_ITS ---
DS: Providers Provider Date of Service: 04/06/23 Date of admission: 03/20/23 05:15 Primary care physician: Lamonte Jenkins DO Consults: 03/24/23 15:36 Consult to Infectious Diseases Routine Consulting Provider: [facility] Infectious Disease Reason for consultation: fuo Has provider been notified: No 03/25/23 11:01 Consult to Urology Routine Consulting Provider: Jahaira Figueroa Reason for consultation: urinary retention-unable to staright cath Has provider been notified: No 03/25/23 17:42 Consult to Critical Care Routine Consulting Provider: Michelle Jaeger Reason for consultation: level of care Has provider been notified: No 03/26/23 07:00 Consult to Gastroenterology Routine Consulting Provider: Callie Gill Reason for consultation: UGIB Has provider been notified: No 03/26/23 14:32 Consult to General Surgery Routine Consulting Provider: [facility] General Surgeons Reason for consultation: sigmoid vulvulous -s/p laprotomy-ozzing from operative area. Has provider been notified: No 03/30/23 13:18 Consult to Urology Routine Consulting Provider: Jahaira Fgiueroa Reason for consultation: canida bacteremia -possible urinary source Has provider been notified: No 04/01/23 13:14 Consult to Wound Care Routine Consulting Provider: [facility] Wound Care Management Reason for consultation: stage 2 to coccyx DS: Diagnosis Discharge Diagnosis (1) Anemia: Status: Acute (2) Fungemia: Status: Acute DS: Summary Hospital Course Hospital Course: Admission HPI Chief Complaint: weakness The patient is a 62-year-old? gentleman with underlying CAD status post CABG, AFib, COPD, diabetes? 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 to emergency department for weakness.? On arrival to emergency room patient was lethargic, saturation 70% on room air,? hypotensive and febrile to 103.1.??Laboratory data was significant for WBC? 13.3, hemoglobin 11.2, crit 34.5, 0 sodium 134, serum bicarbonate 18,? phos 2.5, PC 1.5, ?Initial blood gas 7.47// Imaging:? ?Abdominal CT: Prominent small bowel loops containing fluid possibly related to an ileus.? Lower abdominal midline 5 cm collection with some associated gas possibly postoperative hemorrhage. Infection or developing infection is a consideration. A similar finding was present previously.?ED course:?Patient received? Tylenol 975 , [id number] , ceftriaxone 1 g,? ? Zosyn, and a total of 3 L of saline will continue to be hypotensive requiring admission to the ICU Upon arrival to ICU concern for airway protection, ? patient responding to painful stimuli,? intubated emergently. 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 ? The patient was originally admitted to this hospital ICU on 03/20/2023 due to severe sepsis with shock in the setting of a nosocomial versus aspiration pneumonia, he had been hypoxic and due to concerns for airway protection he was intubated, he required vasopressors at the time and was started on Zosyn IV, vancomycin. He was extubated the next day on 03/21/2023, pressors were discontinued and the patient was transferred up to the floor; where he has been seen by infectious disease recommmended 5 days worth of Zosyn and continuing with antifungal for a total of 21 days for prior history of fungemia. ?Has been treated with Reglan resulting in good output from his colostomy and this is working fine now. ? On 03/25/23 he was transfered back to the ICU due to Hypotension, with concern that he was havig gi bleed and whe was started on IV PPI and was evaluated by GI but there was no indication for EGD or colonoscopy, he was later transitioned to oral PPI and hypotenison resolved with IVF. Patient had continued to be stable, afebrile and no hypotenison. Infectius disease is recommending finish course of 21 days of caspofungin. A picc line was inserted on 04/03/23 for this. He has been on Caspofungin since 03/25 (10 days) and need additional 11 days. It is of note that patient has been off Clozaril since admission through the ICU, and continue to be on hold and he has not exhibited any unsual behavior issues and therefore I will continue to hold this medication and may be restarted at later time. Also Lantus has been on hold to continue Metformin and sliding scale Time Spent with Patient Time attestation: Total time managing care of this patient today ____ minutes. Discharge coordination time: Greater than 30 minutes Quality: Safe Use of Opioids Does Pt have an Active Cancer Diagnosis on the Problem List?: No Quality: Stroke Does the patient have a stroke diagnosis?: No Physical Exam Vital Signs: Vital Signs: Selected Entries 04/06/23 07:42 Temperature 97.1 F Pulse Rate 81 Respiratory Rate 20 Blood Pressure 144/70 H Pulse Oximetry 96 Oxygen Delivery Me thod Room Air General: alert, no distress, not communicating Resp: CTA bilateral CVS: S1,S2,RRR GI: +BS, NT, no distention, wound with mild drainage, non-purulent Skin: No rash Neuro: motor grossly intact Psych: appropriate affect DS: Data Data Completed and Pending Completed studies during hospitalization [Text1]: Procedures Discharge Plan Discharge Anticipated Discharge Date/Time: 04/06/23 11:51 Patient Disposition: Xfer SNF Discharge Diagnosis: Fungemia, Sepsis, Ileus Referrals: [facility] [Outside] - 1 Day (RESUMPTION OF CREDIT DIRECTOR CARE) Lamonte Jenkins DO [Primary Care Provider] - 1 Week Discharge Medications: New caspofungin [Cancidas] 50 mg Recon Soln 50 mg IV Q24H Qty: 10 0RF Continued lactulose 10 gram/15 mL solution 30 ml PO DAILY Eliquis 5 mg Tablet 5 mg PO BID Qty: 60 0RF amiodarone 200 mg tablet 200 mg G-tube DAILY Rx Instructions: Take amiodarone 400 mg (2 tablets) twice daily through 03/18 Then take amiodarone 200 mg 1 tablet daily starting 03/19 sennosides [senna] 8.6 mg Tablet 8.6 mg PO DAILY PRN (Reason: Constipation) nicotine 7 mg/24 hr Patch 24 Hour 1 patch TRANSDERMAL Q24H PRN (Reason: Smoking Cessation) metoprolol tartrate 25 mg tablet 12.5 mg PO BID Protocol: Hold for SBP/HR < HOLD for SBP < : 90 HOLD for HR < : 60 atorvastatin 80 mg tablet 80 mg feeding tube BEDTIME Qty: 30 0RF levothyroxine 75 mcg tablet 75 mcg feeding tube DAILY@0600 Qty: 30 0RF ferrous sulfate 325 mg (65 mg iron) Tablet 325 mg feeding tube DAILY@1700 Qty: 20 0RF Prilosec 10 mg susp,delayed release for recon 20 mg feeding tube BID Qty: 30 0RF metformin 500 mg tablet 500 mg feeding tube BID Qty: 60 0RF Discontinued insulin glargine [Lantus Solostar U-100 Insulin] 100 unit/mL (3 mL) insulin pen 20 unit subcut BEDTIME clozapine 25 mg Tablet 50 mg PO BEDTIME Qty: 30 0RF Discharge Orders: Discharge Order (Routine); Ordered 04/04/23 Ordered By: Yandel Andersen Diet: Tube feed Activity on Discharge: As tolerated Stand Alone Forms: Patient Portal Discharge page Care Plan Goals: recovery from sepsis due to fungemia Health Concerns: fungemia, sepsis Plan of Treatment: To finish IV Caspofungin as ordered Tube feed: GLUCERNA AT MAX GOAL RATE AT 85ML/HR WITH 120ML water flush Q 8 HR Assessment: as above
[2023-04-03 15:30] LABS: Hematocrit 37.7 % (42.0-52.0); Hemoglobin 11.8 g/dl (14.0-18.0); Mean Corpuscular HGB Conc 31.3 g/dl (31.0-36.0); Mean Corpuscular Hemoglobin 26.6 pg (27.0-33.0); Mean Corpuscular Volume 84.9 fL (80.0-98.0); Mean Platelet Volume 10.5 fL (9.4-12.4); Platelet Count 361 X10*3/uL (160-400); Red Blood Count 4.44 X10*6/uL (4.60-5.80); Red Cell Distribution Width 15.8 % (11.0-16.0); White Blood Count 10.1 X10*3/uL (4.8-10.8)
[2023-04-03 16:00] VITALS: BP 125/92; PULSE 75; RESP 18; TEMP 36.4; O2SAT 97
[2023-04-03 16:33] LABS: Anion Gap 13 (12-20); Blood Urea Nitrogen 12 mg/dL (9-16); Calcium 9.6 mg/dL (8.4-10.2); Carbon Dioxide 23 mmol/L (22-29); Chloride 103 mmol/L (96-108); Creatinine Clr Calc Pharmacy 101.5; Estimated Glomerular Filt Rate > 60; Glucose Random 159 mg/dL (60-115); Sodium 135 mmol/L (135-145)
--- NOTE | 2023-04-03 17:03 | P.PICC_ITS ---
[facility] Fungemia Indication: [facility] needed Pertinent Labs: reviewed Technique: Following informed consent including risks, benefits and alternatives and using sterile technique including cap and mask, sterile gown, glove and drape, the right arm was prepped and draped in the usual sterile fashion of full barrier technique with CHG. Following completion of Bartlett Protocol the skin and soft tissues were anesthetized with 1% Lidocaine plain. Using ultrasound guidance, right basilic vein access was obtained twice by Renita Bashir RN, but unable to advance guidewire. Right basilic vein was then accessed by Todd Hollins RN on first attempt. Over an 0.018 wire through peel-away sheath, a 3 FR single lumen PASV PICC line was positioned. Catheter length is 40CM internal length, at the 0CM external ratna, for a total trimmed length of 40CM. The procedure was performed in S272. Tip verification was performed by Mikaela Bneson with Sherlock 3CG. Tip located in SVC. Ultrasound was used to document vein patency and for needle entry. A formal ultrasound picture and cardiac rhythm strip was recorded. Vascular Spline Rolling Machine Job Setter has released the line for use and it is currently dressed with a StatLock, Tegaderm, and CHG disc. Verification has been performed for blood return and line patency. Arm Circumference: 30 CM Equipment: [employer] PowerGlide Provena catheter Catheter Type: 3FR single lumen PASV PICC Lot #: [id number]
[2023-04-03] MEDS: Ferrous Sulfate 324 MG TABLET.DR PO (17:06)
[2023-04-03] MEDS: Caspofungin Acetate 50 MG in 0.9 % Sodium Chloride 250 ML 250 MG IV (17:10)
[2023-04-03 18:00] LABS: Glucose, Whole Blood 129 mg/dL (60-115)
[2023-04-03 19:24] VITALS: BP 120/71; PULSE 81; RESP 24; TEMP 37.2; O2SAT 97
[2023-04-03] MEDS: Atorvastatin Calcium 80 MG TABLET G-TUBE (20:15)
[2023-04-03] MEDS: Metoprolol Tartrate 12.5 MG HALFTAB PO (20:15)
[2023-04-03 20:54] LABS: Glucose, Whole Blood 167 mg/dL (60-115)
--- NOTE | 2023-04-04 | ECG_ITS ---
Test Reason : QT prolongation Blood Pressure : / mmHG Vent. Rate : 073 BPM Atrial Rate : 073 BPM P-R Int : 208 ms QRS Dur : 082 ms QT Int : 438 ms P-R-T Axes : 035 049 030 degrees QTc Int : 482 ms Poor data quality, interpretation may be adversely affected Normal sinus rhythm ST & T wave abnormality, consider anterior ischemia Abnormal ECG When compared with ECG of 03-APR-2023 14:09, Fusion complexes are no longer Present Referred By: Yandel Andersen Electronically Signed By:RICKI YUEN
[2023-04-04 06:15] LABS: Glucose, Whole Blood 190 mg/dL (60-115)
[2023-04-04] MEDS: Levothyroxine Sodium 75 MCG TABLET G-TUBE (06:31)
[2023-04-04] MEDS: Insulin Lispro 100 UNIT/ML 3 ML VIAL SUBCUT ×3 (06:31→18:13)
[2023-04-04] MEDS: Omeprazole/Na Bicarb Oral Susp 20 MG/10 ML UD Cup G-TUBE ×2 (06:31→16:46)
[2023-04-04 07:27] VITALS: BP 136/95; PULSE 92; RESP 16; TEMP 36.3; O2SAT 96
[2023-04-04 07:40] VITALS: BMI 25.5
[2023-04-04] MEDS: Metoprolol Tartrate 12.5 MG HALFTAB PO ×2 (09:01→21:04)
[2023-04-04] MEDS: Apixaban 5 MG TABLET G-TUBE ×2 (09:01→22:08)
[2023-04-04] MEDS: Lactulose 20 GM/30 ML SOLUTION PO (09:01)
[2023-04-04] MEDS: metFORMIN HCl 500 MG TABLET G-TUBE ×2 (09:32→21:04)
[2023-04-04] MEDS: Amiodarone HCL 200 MG TABLET PO (09:32)
--- NOTE | 2023-04-04 10:57 | MHC.CM.PN ---
Addendum entered by Maura Woods 04/04/23 13:10: [facility], THEY ARE WITHOUT THE SUPPLIES/STAFF ON THE WEEKEND NEEDED FOR PT'S CARE. ANTICIPATE DC BACK TO CENTER ON THURSDAY, 04/06. BROTHER Britney UPDATED ON CHANGE OF PLAN. MD/RN AWARE. Original Note: DP: [facility] NOT[facility]. RN AWARE. BLS TRANSPORT BOOKED FOR 5PM VIA [facility] NOTIFIED OF PENDING RETURN.
[2023-04-04 11:22] VITALS: BP 142/71; PULSE 72; RESP 18; TEMP 36.2; O2SAT 97
[2023-04-04 11:53] LABS: Glucose, Whole Blood 170 mg/dL (60-115)
[2023-04-04 16:00] VITALS: BP 136/65; PULSE 76; RESP 18; TEMP 36.9; O2SAT 94
[2023-04-04] MEDS: Ferrous Sulfate 324 MG TABLET.DR PO (16:46)
[2023-04-04 18:13] LABS: Glucose, Whole Blood 160 mg/dL (60-115)
[2023-04-04 19:17] VITALS: BP 172/69; PULSE 80; RESP 18; TEMP 36.9; O2SAT 96
[2023-04-04] MEDS: Acetaminophen 325 MG TABLET 650 MG G-TUBE (21:04)
[2023-04-04] MEDS: Atorvastatin Calcium 80 MG TABLET G-TUBE (21:04)
[2023-04-05] VITALS (7 sets, daily range): BP systolic 112–135; BP diastolic 55–71; PULSE 68–78; RESP 14–20; TEMP 36.1–37.3; O2SAT 95–98; BMI 25.2
[2023-04-05] MEDS: Insulin Lispro 100 UNIT/ML 3 ML VIAL SUBCUT ×4 (00:17→17:11)
[2023-04-05 00:19] LABS: Glucose, Whole Blood 157 mg/dL (60-115)
[2023-04-05] MEDS: Omeprazole/Na Bicarb Oral Susp 20 MG/10 ML UD Cup G-TUBE ×2 (05:44→17:11)
[2023-04-05] MEDS: Levothyroxine Sodium 75 MCG TABLET G-TUBE (05:44)
[2023-04-05 06:01] LABS: Glucose, Whole Blood 179 mg/dL (60-115)
[2023-04-05] MEDS: Lactulose 20 GM/30 ML SOLUTION PO (09:01)
[2023-04-05] MEDS: metFORMIN HCl 500 MG TABLET G-TUBE ×2 (09:01→20:44)
[2023-04-05] MEDS: Apixaban 5 MG TABLET G-TUBE ×2 (09:05→20:44)
[2023-04-05] MEDS: Amiodarone HCL 200 MG TABLET PO (09:05)
[2023-04-05] MEDS: Metoprolol Tartrate 12.5 MG HALFTAB PO ×2 (09:05→20:44)
--- NOTE | 2023-04-05 09:35 | P.PNIM_ITS ---
Subjective Subjective Date of Service: 04/05/23 Interval History: No new issues reported Physical Exam 2 Vital Signs: Vital Signs: Last Vital Signs Temp 99.2 F 04/05/23 08:00 Pulse 75 04/05/23 08:00 Resp 15 04/05/23 08:00 BP 132/65 04/05/23 08:00 Pulse Ox 96 04/05/23 08:00 O2 Del Method Room Air 04/05/23 08:00 O2 Flow Rate 30 03/20/23 13:00 FiO2 21 03/21/23 11:53 BMI result Body Mass Index 25.2 Const: Other: General: alert, no distress, not communicating Resp: CTA bilateral CVS: S1,S2,RRR GI: +BS, NT, no distention, wound with mild drainage, non-purulent Skin: No rash Neuro: motor grossly intact Psych: appropriate affect Objective Data Active Medications Acetaminophen (Acetaminophen 325 Mg Tablet) 650 mg G-TUBE Q6H PRN PRN Reason: Fever Last Admin: 04/04/23 21:04 Dose: 650 mg Documented By: PHAN Amiodarone HCl (Amiodarone Hcl 200 Mg Tablet) 200 mg PO DAILY [facility] Last Admin: 04/05/23 09:05 Dose: 200 mg Documented By: JORGE Apixaban (Apixaban 5 Mg Tablet) 5 mg G-TUBE BID [facility] Last Admin: 04/05/23 09:05 Dose: 5 mg Documented By: JORGE Atorvastatin Calcium (Atorvastatin Calcium 80 Mg Tablet) 80 mg G-TUBE BEDTIME CLOIN Last Admin: 04/04/23 21:04 Dose: 80 mg Documented By: PHAN Dextrose (Dextrose 50 % 25 Gm/50 Ml Syringe) 25 gm IVPUSH STAT PRN; Protocol PRN Reason: Hypoglycemia Last Admin: 03/22/23 06:01 Dose: 25 gm Documented By: SHAMIR Ferrous Sulfate (Ferrous Sulfate 324 Mg Tablet.) 324 mg PO DAILY@1700 [facility] Last Admin: 04/04/23 16:46 Dose: 324 mg Documented By: JORGE Insulin Human Lispro (Insulin Lispro 100 Unit/Ml 3 Ml Vial) 0 unit SUBCUT Q6H [facility]; Protocol Last Admin: 04/05/23 06:03 Dose: 2 unit Documented By: ABEL Lactulose (Lactulose 20 Gm/30 Ml Solution) 20 gm PO DAILY [facility] Last Admin: 04/05/23 09:01 Dose: 20 gm Documented By: JORGE Levothyroxine Sodium (Levothyroxine Sodium 75 Mcg Tablet) 75 mcg G-TUBE DAILY@0600 [facility] Last Admin: 04/05/23 05:44 Dose: 75 mcg Documented By: ABEL Metformin HCl (Metformin Hcl 500 Mg Tablet) 500 mg G-TUBE BID [facility] Last Admin: 04/05/23 09:01 Dose: 500 mg Documented By: JORGE Metoprolol Tartrate (Metoprolol Tartrate 12.5 Mg Halftab) 12.5 mg PO BID [facility]; Protocol Last Admin: 04/05/23 09:05 Dose: 12.5 mg Documented By: JORGE Omeprazole (Omeprazole/Na Bicarb Oral Susp 20 Mg/10 Ml Ud Cup) 20 mg G-TUBE BID@0630,1630 [facility] Last Admin: 04/05/23 05:44 Dose: 20 mg Documented By: ABEL Senna (Sennosides 8.6 Mg Tablet) 8.6 mg PO DAILY PRN PRN Reason: Constipation Labs 04/03/23 15:11 04/03/23 15:11 Labs: Laboratory Results - last 24 hr 04/04/23 04/04/23 04/05/23 11:49 18:06 00:13 POC Glucose 170 H 160 H 157 H 04/05/23 05:57 POC Glucose 179 H Assessment and Plan (1) Anemia: Status: Acute (2) Fungemia: Status: Acute Plan 62-year-old male with past medical history significant for coronary artery disease status post CABG, paroxysmal AFib, COPD, dm 2 in the backdrop of paranoid schizophrenia presents with what likely represented aspiration from [facility].? Was intubated in emergency room and transferred to ICU.? Feedings were stopped at that time.? During ICU stay, arboriculturist noted that there was scant output from colostomy bag.? Concern was for stricture.? Patient was maintained on NPO status and broad-spectrum antibiotics were initiated.? Patient was subsequently extubated without issue and did well in the immediate post extubation period.? Hypotension shock, admittted to ICU twice, resolved. Acute hypoxic respiratory failure likely secondary to aspiration pneumonia, resolved and has completed Abx for PNA Fungemia--likely urinary source, has had it in urine before and was treated for 1 week in February. Repeat culture negative, has picc line and will need 21 days total Open wound in abdomen, source unclear, has been eval by surgery no further intervention Dysphagia--has peg and tolerating tube feed Acute blood loss anemia on chronic anemia- may be slow oozing from surgery colostomy side/iv fluids contributing(dilutional) occult blood neg x2 patient received 2 and PC H&H is stable around 9.5 Type 2 diabetes- restarted metformin and continue ssi, hold lantus adjust therapies as indicated Paranoid schizophrenia-patient has been off clozaril for approximately 2weeks...? Behaviors stable reassess need when returns to [facility]. Paroxysmal atrial fibrillation-acceptable rate control presently continue Eliquis,adjust therapies as clinically indicated DNR/DNI Eliquis. ongoing hospitalization Fungemia:need iv cospofungin , repeat blood cultures pending , moniter colostomy output , urology eval for recurrent fugemia and catheter change. could not be discharge over the weekend due to lack of supply for tube feeed, discharge tomorrow Time Spent With Patient Time: Total time managing care of this patient today ____ minutes. Quality Stroke Does the patient have a stroke diagnosis?: No VTE Prior VTE?: No VTE Risk Level:: Medical - moderate - high VTE Device Contraindication: N/A - Device Ordered VTE Drug Contraindication: Treatment Not Tolerated
[2023-04-05] MEDS: Caspofungin Acetate 50 MG in 0.9 % Sodium Chloride 250 ML 250 MG IV (11:09)
[2023-04-05 12:32] LABS: Glucose, Whole Blood 188 mg/dL (60-115)
[2023-04-05 16:33] LABS: Glucose, Whole Blood 181 mg/dL (60-115)
[2023-04-05] MEDS: Ferrous Sulfate 324 MG TABLET.DR PO (17:10)
[2023-04-05] MEDS: Acetaminophen 325 MG TABLET 650 MG G-TUBE (20:44)
[2023-04-05] MEDS: Atorvastatin Calcium 80 MG TABLET G-TUBE (20:45)
[2023-04-06 01:34] LABS: Glucose, Whole Blood 154 mg/dL (60-115)
[2023-04-06] MEDS: Insulin Lispro 100 UNIT/ML 3 ML VIAL SUBCUT ×2 (01:40→12:00)
[2023-04-06 03:10] VITALS: BP 147/67; PULSE 76; RESP 18; TEMP 36.4; O2SAT 96
[2023-04-06] MEDS: Omeprazole/Na Bicarb Oral Susp 20 MG/10 ML UD Cup G-TUBE (06:39)
[2023-04-06] MEDS: Levothyroxine Sodium 75 MCG TABLET G-TUBE (06:39)
[2023-04-06 06:57] LABS: Glucose, Whole Blood 198 mg/dL (60-115)
[2023-04-06 07:42] VITALS: BP 144/70; PULSE 81; RESP 20; TEMP 36.2; O2SAT 96
[2023-04-06] MEDS: Lactulose 20 GM/30 ML SOLUTION PO (09:27)
[2023-04-06] MEDS: Apixaban 5 MG TABLET G-TUBE (09:27)
[2023-04-06] MEDS: metFORMIN HCl 500 MG TABLET G-TUBE (09:27)
[2023-04-06] MEDS: Metoprolol Tartrate 12.5 MG HALFTAB PO (09:27)
[2023-04-06] MEDS: Caspofungin Acetate 50 MG in 0.9 % Sodium Chloride 250 ML 250 MG IV (09:27)
[2023-04-06] MEDS: Amiodarone HCL 200 MG TABLET PO (09:27)
[2023-04-06 12:00] VITALS: BP 138/83; PULSE 75; RESP 20; TEMP 36.7; O2SAT 96
[2023-04-06 12:23] LABS: Glucose, Whole Blood 185 mg/dL (60-115)
== END 2023-04-06 15:00 | disposition skilled nursing facility (03) | DRG 871 ==
LOC: HO.ED 05:17 → HO.ICU 05:21 → HO.IMC 03-22 12:19 → HO.ICU 03-25 19:55 → HO.IMC 03-26 14:43
PROVIDERS: Internal Medicine; Internal Medicine Critical Care Medicine; Internal Medicine Pulmonary Disease; Physician Assistant Medical; Admitting Provider Registered Nurse Community Health; Emergency Provider Internal Medicine; PCP Hospitalist; Visit Provider Internal Medicine
DX: B37.7 Candidal sepsis (principal); G93.41 Metabolic encephalopathy; J18.9 Pneumonia, unspecified organism; R65.21 Severe sepsis with septic shock; J96.01 Acute respiratory failure with hypoxia; J69.0 Pneumonitis due to inhalation of food and vomit; J44.0 Chronic obstructive pulmonary disease with (acute) lower respiratory infection; F20.0 Paranoid schizophrenia; D62 Acute posthemorrhagic anemia; N17.9 Acute kidney failure, unspecified; K56.7 Ileus, unspecified; K92.2 Gastrointestinal hemorrhage, unspecified; I25.10 Atherosclerotic heart disease of native coronary artery without angina pectoris; Z66 Do not resuscitate; F03.90 Unspecified dementia, unspecified severity, without behavioral disturbance, psychotic disturbance, mood disturbance, and anxiety; E03.9 Hypothyroidism, unspecified; I48.0 Paroxysmal atrial fibrillation; E78.5 Hyperlipidemia, unspecified; E86.1 Hypovolemia; R13.10 Dysphagia, unspecified; D69.59 Other secondary thrombocytopenia; Z93.1 Gastrostomy status; R33.9 Retention of urine, unspecified; E11.65 Type 2 diabetes mellitus with hyperglycemia; Z20.822 Contact with and (suspected) exposure to COVID-19; Z95.5 Presence of coronary angioplasty implant and graft; E83.42 Hypomagnesemia; L89.152 Pressure ulcer of sacral region, stage 2; Z93.3 Colostomy status; Z87.891 Personal history of nicotine dependence; Z79.01 Long term (current) use of anticoagulants; Z79.84 Long term (current) use of oral hypoglycemic drugs; Z79.890 Hormone replacement therapy; Z79.899 Other long term (current) drug therapy
CPT/HCPCS: 36415; 36573; 36600; 70450; 71045; 71250; 74176; 80048; 80053; 80202; 81001; 82040; 82140; 82272; 82533; 82565; 82803; 82947; 83605; 83735; 83880; 84100; 84132; 84484; 84597; 85014; 85018; 85025; 85027; 85610; 85730; 86850; 86900; 86901; 86923; 87040; 87070; 87077; 87205; 87633; 87635; 93005; 93306; 94002; 94003; 94640; 94799; 99285; 99291; C1751; C1758; J0637; J0696; J1364; J1885; J2543; J2765; J3370; J3371; J3430; J3475; P9016; P9047; Q9957

== ENCOUNTER 2023-03-20 05:15 | Outpatient (BNV) | payer MEDICARE, MEDICAID, SELFPAY | END 2023-03-27 07:00 | PROVIDERS: Admitting Provider Registered Nurse Community Health; Emergency Provider Internal Medicine; PCP Hospitalist; Visit Provider Internal Medicine Cardiovascular Disease | DX: I34.81 Nonrheumatic mitral (valve) annulus calcification (principal) | CPT/HCPCS: 93306 ==

== ENCOUNTER → 2023-03-20 05:15 | Outpatient (BNV) | payer MEDICARE, MEDICAID, SELFPAY | PROVIDERS: Admitting Provider Registered Nurse Community Health; Emergency Provider Internal Medicine; PCP Hospitalist; Visit Provider Registered Nurse Community Health | DX: I95.9 Hypotension, unspecified (principal); K56.7 Ileus, unspecified; D64.9 Anemia, unspecified; E87.21 Acute metabolic acidosis | CPT/HCPCS: 31500; 36556; 99291; 99292 ==

== ENCOUNTER → 2023-03-20 05:15 | Outpatient (BNV) | payer MEDICARE, MEDICAID, SELFPAY | PROVIDERS: Admitting Provider Registered Nurse Community Health; Emergency Provider Internal Medicine; PCP Hospitalist; Visit Provider Internal Medicine Gastroenterology | DX: D64.9 Anemia, unspecified (principal) | CPT/HCPCS: 99232 ==

== ENCOUNTER → 2023-03-20 05:15 | Outpatient (BNV) | payer MEDICARE, MEDICAID, SELFPAY | PROVIDERS: Admitting Provider Registered Nurse Community Health; Emergency Provider Internal Medicine; PCP Hospitalist; Visit Provider Hospitalist | DX: D64.9 Anemia, unspecified (principal); B49 Unspecified mycosis | CPT/HCPCS: 99232; 99233; 99239; 99499 ==

== ENCOUNTER → 2023-03-20 05:15 | Outpatient (BNV) | payer MEDICARE, MEDICAID, SELFPAY | PROVIDERS: Admitting Provider Registered Nurse Community Health; Emergency Provider Internal Medicine; PCP Hospitalist; Visit Provider Internal Medicine Pulmonary Disease | DX: K56.7 Ileus, unspecified (principal); T17.908A Unspecified foreign body in respiratory tract, part unspecified causing other injury, initial encounter; N17.9 Acute kidney failure, unspecified; A41.9 Sepsis, unspecified organism; R65.20 Severe sepsis without septic shock; I48.0 Paroxysmal atrial fibrillation; I25.10 Atherosclerotic heart disease of native coronary artery without angina pectoris; E11.9 Type 2 diabetes mellitus without complications; F20.0 Paranoid schizophrenia; J96.01 Acute respiratory failure with hypoxia | CPT/HCPCS: 99291 ==

== ENCOUNTER → 2023-03-20 05:15 | Outpatient (BNV) | payer MEDICARE, MEDICAID, SELFPAY | PROVIDERS: Admitting Provider Registered Nurse Community Health; Emergency Provider Internal Medicine; PCP Hospitalist; Visit Provider Urology | DX: B49 Unspecified mycosis (principal); R33.9 Retention of urine, unspecified | CPT/HCPCS: 99221; 99232 ==

== ENCOUNTER → 2023-03-20 05:15 | Outpatient (BNV) | payer MEDICARE, MEDICAID, SELFPAY | PROVIDERS: Admitting Provider Registered Nurse Community Health; Emergency Provider Internal Medicine; PCP Hospitalist; Visit Provider Surgery | DX: L24.A9 Irritant contact dermatitis due friction or contact with other specified body fluids (principal) | CPT/HCPCS: 99024 ==

== ENCOUNTER → 2023-03-20 05:15 | Outpatient (BNV) | payer MEDICARE, MEDICAID, SELFPAY | PROVIDERS: Admitting Provider Registered Nurse Community Health; Emergency Provider Internal Medicine; PCP Hospitalist; Visit Provider Internal Medicine | DX: G93.40 Encephalopathy, unspecified (principal); B49 Unspecified mycosis | CPT/HCPCS: 99222 ==

== ENCOUNTER 2023-04-13 12:44 | Inpatient (IN) | payer MEDICARE, MEDICAID, SELFPAY ==
[2023-04-13] VITALS (7 sets, daily range): BP systolic 103–120; BP diastolic 66–75; PULSE 74–100; RESP 16–40; TEMP 36.1–38.3; O2SAT 93–99; BMI 22.1; BMI 22.3
--- NOTE | ~2023-04-13 | XR_ITS ---
EXAMINATION: XR CHEST CLINICAL INFORMATION: Reason for Exam tachypnea COMPARISON: Chest radiograph 04/13/[address] chest abdomen pelvis 03/20/2023 TECHNIQUE: One view of the chest FINDINGS: Lines and tubes: Median sternotomy wires. Streaky right lower lung airspace opacities likely reflecting atelectasis. No pleural effusion. No pneumothorax. Unchanged cardiomediastinal silhouette. XR/XR chest 1V IMPRESSION: Streaky right lower lung airspace opacities likely reflecting atelectasis.
--- NOTE | ~2023-04-13 | XR_ITS ---
EXAMINATION: XR CHEST CLINICAL INFORMATION: Fever, history recurrent aspiration COMPARISON: Chest 03/24/2023, 03/20/2023 TECHNIQUE: AP upright portable view of the chest was obtained. 1430. FINDINGS: There is a improving opacity in the right midlung. There is new opacity in the right lower lobe. There is new opacity at the left lung base. There is no pleural effusion. The cardiomediastinal silhouette is stable. The patient is status post median sternotomy. No acute osseous abnormality. XR/XR chest 1V IMPRESSION: 1. Improving right midlung opacity. 2. New right lower lobe and left lower lobe pneumonia.
--- NOTE | ~2023-04-13 | US_ITS ---
EXAMINATION: US VENOUS WITH DOPPLER UPPER EXTREMITY, RIGHT CLINICAL INFORMATION: Swelling COMPARISON: None available. TECHNIQUE: Ultrasound of the upper extremity is performed using compression sonography and color and pulse Doppler flow with assessment of augmentation of flow. There is also imaging and Doppler assessment of the jugular and subclavian veins. Spectral analysis with color-flow imaging is performed. FINDINGS: Respiratory variation, normal compression, and augmented flow are noted throughout the upper extremity including the axillary, brachial, cubital, and radial and ulnar veins. There is normal flow in the internal jugular and subclavian veins. There is no visible deep or superficial thrombophlebitis. There is a right upper extremity PICC line. US/US venous duplex UE RT IMPRESSION: No DVT demonstrated in the right upper extremity
--- NOTE | ~2023-04-13 | US_ITS ---
EXAMINATION: US ABDOMEN LIMITED CLINICAL INFORMATION: Elevated LFTs, fever COMPARISON: CT scan abdomen and pelvis 03/20/2023 TECHNIQUE: Real-time imaging of the right upper quadrant abdominal viscera. FINDINGS: PANCREAS: The pancreas is obscured by bowel gas. LIVER: The liver is normal in size. The liver contour is normal. Parenchymal echogenicity is normal. 1.2 x 0.7 x 0.6 cm echogenic focus in the right lobe may represent a hemangioma. There is no intrahepatic biliary duct dilatation seen. GALLBLADDER: The gallbladder is physiologically distended. Multiple mobile gallstones are present. No evidence of gallbladder wall thickening or pericholecystic fluid. COMMON BILE DUCT: Normal in caliber measuring 0.2 cm in diameter. RIGHT KIDNEY: Normal. No hydronephrosis. No renal calculi or focal parenchymal lesions. The kidney measures 11.3 cm in maximum dimension. Trace perinephric fluid is seen adjacent to the lower pole. FREE FLUID: None. US/US abdomen limited IMPRESSION: 1. 1.2 cm echogenic focus in the right lobe of the liver may represent a hemangioma. 2. Cholelithiasis. 3. Trace perinephric fluid adjacent to the lower pole of the right kidney.
--- NOTE | 2023-04-13 13:19 | ED_ITS ---
HPI - Fever General Chief Complaint: Fever Stated Complaint: FEVER 101.4,? INF OF ABD WOUND,FROM SNF PER EMS Time Seen by Provider: 04/13/23 12:58 Source: EMS Mode of arrival: EMS Limitations: altered mental status History of Present Illness HPI Narrative: Patient comes to the emergency room via ambulance from [facility]. At baseline, patient is altered but according to the staff, he is more altered than usual. Also, they noted that the patient has a fever of 101.4. The staff reported patient has known abdominal wounds and sacral wounds. Of note, patient was discharged 10 days ago from this facility, patient was treated for anemia and fungemia. Patient has a PICC line which was inserted on 04/03/2023. Patient is still on capsofungin and Augmentin. Patient is unable to give any history Related Data Home Medications Medication Instructions Recorded Confirmed lactulose 10 gram/15 mL oral 30 ml PO DAILY 12/13/21 03/20/23 solution nicotine 7 mg/24 hr daily 1 patch transdermal Q24H PRN 12/27/22 03/20/23 transdermal patch Smoking Cessation sennosides 8.6 mg tablet (senna) 8.6 mg PO DAILY PRN Constipation 12/27/22 03/20/23 metoprolol tartrate 25 mg tablet 12.5 mg PO BID 02/20/23 03/20/23 amiodarone 200 mg tablet 200 mg G-tube DAILY 03/20/23 03/20/23 Previous Rx's Medication Instructions Recorded apixaban 5 mg tablet (Eliquis) 5 mg PO BID #60 tabs 12/16/21 atorvastatin 80 mg tablet 80 mg feeding tube BEDTIME #30 tabs 03/17/23 ferrous sulfate 325 mg (65 mg 325 mg feeding tube DAILY@1700 #20 03/17/23 iron) tablet tabs levothyroxine 75 mcg tablet 75 mcg feeding tube DAILY@0600 #30 03/17/23 tabs metformin 500 mg tablet 500 mg feeding tube BID #60 tabs 03/17/23 omeprazole magnesium 10 mg oral 20 mg feeding tube BID #30 ea 03/17/23 suspension,delayed release (Prilosec) caspofungin 50 mg intravenous 50 mg IV Q24H #10 ea 04/04/23 solution (Cancidas) Allergies Allergy/AdvReac Type Severity Reaction Status Date / Time No Known Allergies Allergy Unverified 04/05/20 19:36 [No Known Allergies*] Review of Systems 2 Review of Systems: Yes Unobtainable due to mental condition [facility] Past Medical History Medical History Fungemia Candidal urinary tract infection Paroxysmal atrial fibrillation Afib CAD (coronary artery disease) Personal history of transient ischemic attack (TIA), and cerebral infarction without residual deficits Altered mental status Atherosclerotic heart disease of [place] coronary artery without angina pectoris Essential (primary) hypertension Amblyopia, 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 Paranoid schizophrenia Hyperlipidemia Hypothyroidism Anemia Encephalopathy Drug induced subacute dyskinesia Cognitive impairment Exotropia, alternating, with A pattern Hypermetropia of both eyes Dysphagia Boutonniere deformity of finger COVID-19 Type 2 diabetes mellitus COPD (chronic obstructive pulmonary disease) Dementia Surgical History Presence of aortocoronary bypass graft Social History Social History Household Members: Unknown / Unable to assess Household Members Other:: [facility] Housing: [facility] Housing Other:: [facility] Do you presently have visiting nurse or other home services: No Unable to assess alcohol history related to: Unable to respond Alcohol intake: never Patient Tobacco Use Status: Former Tobacco user Tobacco use type: Cigarette Years Smoked: SURAJ Smoked in Last 30 Days: No Use of substances other than those prescribed or required for medical reasons: No Advance Directives: Yes Advance Directives on File: Yes Advance Directives Date on File: 12/14/21 service: No Current occupational status: disabled Physical Exam 2 Vital Signs: Vital Signs: Last Vital Signs Temp 99.9 F 04/13/23 15:49 Pulse 82 04/13/23 15:49 Resp 32 H 04/13/23 15:49 BP 115/66 04/13/23 15:49 Pulse Ox 95 04/13/23 15:49 O2 Del Method Nasal Cannula 04/13/23 15:49 O2 Flow Rate 3 04/13/23 15:49 Oxygen Flow Rate 3 04/13/23 13:00 BMI result Body Mass Index 22.1 Const: Other: Appearance: Alert. Weak appearing, cachectic Eyes: Pupils equal, round and reactive to light. ENT: Pharynx normal. Dry oral mucosa Neck: Normal inspection. Neck supple. No lymph nodes noted. No crepitus CVS: Normal heart rate and rhythm. Pulses normal. Normal S1 and S2 Respiratory: No respiratory distress. Breath sounds normal. No Wheezing. No rales Abdomen: Soft, abdominal wounds healing, scant yellowish drainage, G-tube in place Skin: Skin warm and clammy.. Slightly pale skin color. Normal skin turgor. Extremities: No lower extremity edema. No Lacerations. No Rash Neuro: Weak, unable to participating cranial nerve assessment Psych: calm, cooperative Course Course Course Narrative: -all the patient's labs are pending. -last time that the patient was here in the hospital, patient was treated for fungimia with capsoofungin. -here in the ED, patient does have a fever 100.9, stable blood pressure 113/75, heart rate 92, at this time, 13:20, sepsis not suspected -patient seems dehydrated -patient is empirically being treated with IV fluids and ceftriaxone. Patient seems to be coughing, patient may have pneumonia, O2 normal. X-rays pending Medications Administered Generic Name Dose Route Start Last Admin Trade Name Freq PRN Reason Stop Dose Admin Piperacillin Sod/Tazobactam 50 mls @ 100 mls/hr 04/13/23 15:52 04/13/23 16:08 Sod 3.375 gm/ Sodium Chloride IV 04/13/23 16:21 100 mls/hr ONCE ONE Administration Discontinued Medications Generic Name Dose Route Start Last Admin Trade Name Freq PRN Reason Stop Dose Admin Acetaminophen 975 mg 04/13/23 14:32 04/13/23 15:24 Acetaminophen 325 Mg Tablet G-TUBE 04/13/23 14:33 975 mg ONCE ONE Administration Sodium Chloride 2,500 mls @ 999 mls/hr 04/13/23 13:15 04/13/23 14:01 Ns IVCONT 04/13/23 15:45 999 mls/hr .Q2H31M ONE Administration Ceftriaxone Sodium 1 gm/ 50 mls @ 100 mls/hr 04/13/23 13:15 04/13/23 15:15 Sodium Chloride IV 04/13/23 13:44 Infused ONCE ONE Infusion Medical Decision Making Medical Decision Making [facility] Narrative: -patient's white blood cell count is elevated 17.5 which is new, lactic acid within normal limits. Patient's LFTs as slightly bumped, this is new as well. -Patient does not seem to have abdominal pain. Patient states that he does not have abdominal pain. However, due to the newly elevated LFTs and fever, we will go ahead and order an ultrasound. -however, have elevated LFTs could be secondary to parenteral nutrition -ultrasound negative for acute cholecystitis or ascending cholangitis -reviewing patient's chart, patient known to aspirate -interpretation of chest x-ray, bilateral lower lobe pneumonia -patient's antibiotics: Zosyn has been added -discussed the patient with Dr. Arguello for admission Differential Diagnosis Differential Diagnoses: The differential diagnosis associated with the presentation includes (Pneumonia, UTI, ascending cholangitis, cholecystitis) Admission/Observation Consideration of admission/observation: Escalation of care including admission/observation considered Consult Healthcare Provider Management of the patient was discussed with: Hospitalist Lab Data MDM Lab Attestation statement: I reviewed the patient's lab results. 04/13/23 13:32 04/13/23 13:32 Labs: Lab Results 04/13/23 Range/Units 13:32 WBC 17.5 H (4.8-10.8) X10*3/uL RBC 4.53 L (4.60-5.80) X10*6/uL Hgb 11.9 L (14.0-18.0) g/dl Hct 37.7 L (42.0-52.0) % MCV 83.2 (80.0-98.0) fL MCH 26.3 L (27.0-33.0) pg MCHC 31.6 (31.0-36.0) g/dl RDW 15.7 (11.0-16.0) % Plt Count 295 (160-400) X10*3/uL MPV 10.5 (9.4-12.4) fL Immature Gran % (Auto) 0.6 H (0.0-0.4) % Neut % (Auto) 84.1 H (45-73) % Lymph % (Auto) 9.8 L (20-40) % [place] % (Auto) 4.8 (2-11) % Eos % (Auto) 0.5 (0-4) % Baso % (Auto) 0.2 (0-2) % Lymph # (Auto) 1.7 (1.2-4.9) X10*3/uL [place] # (Auto) 0.8 (0.1-1.2) X10*3/uL Eos # (Auto) 0.1 (0.0-0.4) X10*3/uL Baso # (Auto) 0.0 (0.0-0.2) X10*3/uL Abs Immat Gran (auto) 0.10 H (0.00-0.03) X10*3/uL Absolute Neuts (auto) 14.7 H (2.0-8.3) x10*3/uL Absolute Nucleated RBC 0.000 (0.0-0.012) X10*3/uL Nucleated RBC % (auto) 0.0 (0.0-0.2) /100WBC ESR 91 H (0-15) MM/HR Sodium 146 H (135-145) mmol/L Potassium 4.0 (3.3-5.1) mmol/L Chloride 109 H (96-108) mmol/L Carbon Dioxide 26 (22-29) mmol/L Anion Gap 15 (12-20) BUN 27 H (9-16) mg/dL Creatinine 0.91 (0.5-1.4) mg/dL Estim Creat Clear Calc 79.9 Estimated GFR > 60 Random Glucose 341 H (60-115) mg/dL Lactic Acid 1.4 (0.5-2.0) mmol/L Calcium 10.6 H D (8.4-10.2) mg/dL Magnesium 2.0 (1.6-2.6) mg/dL Total Bilirubin 0.2 (0.0-1.0) mg/dL AST 221 H (5-37) U/L ALT 189 H (0-40) U/L Alkaline Phosphatase 159 H (39-117) U/L C-Reactive Protein 26.54 H (< or = 0.50) mg/dL Total Protein 7.5 (6.5-8.0) g/dL Albumin 3.2 L (3.5-5.0) g/dL Urine Color Dark Yellow Urine Appearance Cloudy Urine pH 5.5 (5.0-9.0) Ur Specific [place] 1.025 (1.005-1.025) Urine Protein 100 (2+) H (Neg-Trace) mg/dL Urine Glucose (UA) Negative (Negative) mg/dL Urine Ketones Trace (Negative) mg/dL Urine Blood Large (3+) H (Negative) Urine Nitrite Negative (Negative) Ur Leukocyte Esterase Moderate (2+) H (Negative) Urine RBC >20 H (0-2) /HPF Urine WBC >50 H (0-5) /HPF Ur Squamous Epith Cells 0-2 (0-2) /HPF Ur Transition Epith Cell Present Ur Renal Epithelial Cell Present Urine Bacteria Trace (None Seen) Hyaline Casts 11-20 (0-2) /LPF Urine Yeast Present COVID-19 (NEEMA) Negative (Negative) COVID-19 Clin Com See Note Influenza Type A (JORGE L) Negative (Negative) Influenza Type B (JORGE L) Negative (Negative) Influenza A & B Note See Note Independent Interpretation I performed an independent interpretation of an: Plain X-Ray Radiology Impression Discussion of test interpretation with radiology: I have reviewed the radiologist's reading. Radiologist Impression: FINDINGS: There is a improving opacity in the right midlung. There is new opacity in the right lower lobe. There is new opacity at the left lung base. There is no pleural effusion. The cardiomediastinal silhouette is stable. The patient is status post median sternotomy. No acute osseous abnormality. XR/XR chest 1V IMPRESSION: 1. Improving right midlung opacity. 2. New right lower lobe and left lower lobe pneumonia. External Record Review External record reviewed: Inpatient record Chronic Conditions Patient?s care impacted by: Other (COPD, AFib) Critical Care Time Critical Care Time Critical Care Time: Yes Total Critical Care Time: 60 Attestation: I have personally provided critical care time. Time includes review of lab data, radiology results, discussion with consultants, and monitoring for potential decompensation. Intervention performed as documented. Discharge Plan Discharge Clinical Impression: Aspiration pneumonia of both lower lobes Patient Disposition: Admitted As Inpatient
[2023-04-13 13:39] LABS: MANUAL DIFF FLAG NO
[2023-04-13 13:41] LABS: Appearance Urine Cloudy; Basophils Percent Auto 0.2 % (0-2); Color Urine Dark Yellow; Eosinophils Absolute Auto 0.1 X10*3/uL (0.0-0.4); Eosinophils Percent Auto 0.5 % (0-4); Glucose Urine UA Negative (Negative); Hematocrit 37.7 % (42.0-52.0); Hemoglobin 11.9 g/dl (14.0-18.0); Imm Gran Pct Auto 0.6 % (0.0-0.4); Leukocyte Esterase Urine Moderate (2+) (Negative); Lymphocytes Absolute Auto 1.7 X10*3/uL (1.2-4.9); Lymphocytes Percent Auto 9.8 % (20-40); Mean Corpuscular HGB Conc 31.6 g/dl (31.0-36.0); Mean Corpuscular Hemoglobin 26.3 pg (27.0-33.0); Mean Corpuscular Volume 83.2 fL (80.0-98.0); Mean Platelet Volume 10.5 fL (9.4-12.4); Monocytes Absolute Auto 0.8 X10*3/uL (0.1-1.2); Monocytes Percent Auto 4.8 % (2-11); Neutrophils Absolute Auto 14.7 x10*3/uL (2.0-8.3); Neutrophils Percent Auto 84.1 % (45-73); Nitrite Urine Negative (Negative); PH 5.5 (5.0-9.0); Platelet Count 295 X10*3/uL (160-400); Red Blood Count 4.53 X10*6/uL (4.60-5.80); Red Cell Distribution Width 15.7 % (11.0-16.0); Specific Gravity - Urine 1.025 (1.005-1.025); UMIC TRIGGER UACC YES; Urine Blood Large (3+) (Negative); Urine Ketones Trace mg/dL (Negative); Urine Protein 100 (2+) mg/dL (Neg-Trace); White Blood Count 17.5 X10*3/uL (4.8-10.8)
[2023-04-13 13:51] LABS: Lactic Acid 1.4 mmol/L (0.5-2.0)
[2023-04-13 13:56] LABS: Alanine Aminotransferase 189 U/L (0-40); Albumin Level 3.2 g/dL (3.5-5.0); Alkaline Phosphatase 159 U/L (39-117); Anion Gap 15 (12-20); Aspartate Amino Transferase 221 U/L (5-37); Bilirubin Total 0.2 mg/dL (0.0-1.0); Blood Urea Nitrogen 27 mg/dL (9-16); C Reactive Protein 26.54 mg/dL (< or = 0.50); Calcium 10.6 mg/dL (8.4-10.2); Carbon Dioxide 26 mmol/L (22-29); Chloride 109 mmol/L (96-108); Creatinine Clr Calc Pharmacy 79.9; Estimated Glomerular Filt Rate > 60; Glucose Random 341 mg/dL (60-115); Sodium 146 mmol/L (135-145); Total Protein 7.5 g/dL (6.5-8.0)
[2023-04-13 13:58] LABS: Bacteria Urine Trace (None Seen); COVID-19 Test Negative (Negative); IDNOW Serial# 55D5AD1C; RBC Urine >20 /HPF (0-2); Renal Epithelial Cells Urine Present; Squamous Epithelial Cell Urine 0-2 /HPF (0-2); Transitional Epi Cells Urine Present; UACC Culture Trigger YES; WBC Urine >50 /HPF (0-5)
[2023-04-13] MEDS: cefTRIAXone sodium 1 GM in 0.9 % Sodium Chloride 50 ML IV (14:01)
[2023-04-13] MEDS: 0.9 % Sodium Chloride 2,500 ML 999 ML IVCONT (14:01)
--- NOTE | 2023-04-13 14:04 | PC.NURSE ---
pt BIBA from [facility], staff reported fever and abdominal wounds, ams. this RN noted rectal temp of 100.9, cough, small closed wound to great toe on R foot, and second toe on L foot. coccyx is broken down, bandage was removed and picture was taken and sent to MD Chaidez. picture of abd wound sent to MD Chaidez, undressed and redressed at this time. ostomy bag burped, labs sent, IV placed and fluid started. call to SNF reports new on set of symptoms over the weekend and today, they are unsure where the wounds came from but were present after recent D/C [place] [facility]. MD Chaidez aware.
[2023-04-13 14:08] LABS: IDNOW Serial# 9DB6401D; Influenza B2 Negative (Negative)
[2023-04-13 14:09] LABS: Influenza A Negative (Negative)
--- NOTE | 2023-04-13 14:23 | PC.NURSE ---
attempting to collect pts MOLST form from [facility] [place] - first fax came through unreadable. new call placed to [facility] for reattempt of MOLST
[2023-04-13] MEDS: Acetaminophen 325 MG TABLET 975 MG G-TUBE (15:24)
--- NOTE | 2023-04-13 15:30 | PC.NURSE ---
pt resting comfortably, tylenol given via Gtube for fever
[2023-04-13 15:39] LABS: Erythrocyte Sedimentation Rate 91 MM/HR (0-15)
--- NOTE | 2023-04-13 15:55 | MHC.EDTECH ---
THIS PCT ASSUMED CARE OF PT AT 1500 ,VITALS SIGN TAKEN ,TAWANA CARRILLO IS AWARE OF PT HIGH RESP ,PT IS COMFORTABLE ,PT BELONGING LIST DONE ,WILL CONTINUE TO MONITOR .
[2023-04-13] MEDS: Piperacillin Sodium/Tazobactam 3.375 GM in 0.9 % Sodium Chloride 50 ML IV (16:08)
--- NOTE | 2023-04-13 16:31 | P.HPHOSP_ITS ---
History of Present Illness Date of Service: 04/13/23 Attending physician on admission: Galen Patton Chief Complaint: cough, fever 62-year-old male with history of coronary artery disease, history of TIA, paroxysmal atrial fibrillation, hypertension paranoid schizophrenia, hypothyroidism, hyperlipidemia, unspecified dementia, gaf-fgrsdvo-pafqkgctc type 2 diabetes, COPD presented to the ED earlier today via EMS from [facility] where he resides for evaluation of cough, fever, and infected appearing wound of the abdomen. The patient is unable to provide history secondary to his dementia and cognitive impairment. The patient was recently admitted from initially to ICU due to severe sepsis with shock in the setting of a nosocomial versus aspiration pneumonia with hypoxia and was intubated for airway protection treated with vasopressors. He was stepped down to the medical floors found to have fungemia treated with antifungal therapy (completed 21 day course initiated inpt) and IV Zosyn. He was transferred back to ICU due to hypotension with concern for GI bleed but was ruled out. He was discharged on 08/08 day course of caspofungin and Augmentin. Prior to this, had three week stay for volvulus and colostomy. On arrival, patient febrile to 100.9, tachypneic to 40, and hypoxic requiring 3 L supplemental O2. He has a leukocytosis of 17.5. Creatinine 0.91, BUN 27. Sodium 146, potassium 4.0, chloride 109, glucose 341. AST 221, ALT 189. CRP 26.54, ESR 91. Chest x-ray shows improving right midlung opacity but new right lower and left lower lobe pneumonia. S abdominal ultrasound shows 1.2 cm echogenic focus in the right lobe of the liver possibly representing hemangioma as well as cholelithiasis and trace perinephric fluid adjacent to the lower pole the right kidney. In the ED has been treated with IV vancomycin, IV Zosyn, 2500 mL IV NS, and was also given 1 g ceftriaxone. 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 Paranoid schizophrenia Hyperlipidemia Hypothyroidism Anemia Encephalopathy Drug induced subacute dyskinesia Cognitive impairment Exotropia, alternating, with A pattern Hypermetropia of both eyes Dysphagia Boutonniere deformity of finger COVID-19 Type 2 diabetes mellitus COPD (chronic obstructive pulmonary disease) Dementia Surgical History Presence of aortocoronary bypass graft Social History Household Members: None Household Members Other:: [facility] Housing: [facility] Housing Other:: [facility] Do you presently have visiting nurse or other home services: No Unable to assess alcohol history related to: Unable to respond Alcohol intake: never Patient Tobacco Use Status: Former Tobacco user Tobacco use type: Cigarette Years Smoked: SURAJ Smoked in Last 30 Days: No Use of substances other than those prescribed or required for medical reasons: No Currently Displaying Signs/Symptoms of Drug Intoxication Withdrawal: No Advance Directives: Yes Advance Directives on File: Yes Advance Directives Date on File: 12/14/21 service: No Current occupational status: disabled Meds Allergies Allergy/AdvReac Type Severity Reaction Status Date / Time No Known Allergies Allergy Verified 04/13/23 23:45 [No Known Allergies*] Active Medications: Current Medications Vancomycin HCl 1,000 mg/Vancomycin HCl 750 mg/ Sodium Chloride 535 mls @ 267.5 mls/hr IV ONCE ONE Stop: 04/13/23 18:06 Home Medications Medication Instructions Recorded Confirmed Last Taken Type lactulose 10 gram/15 mL oral 30 ml PO DAILY 12/13/21 04/13/23 12/12/21 History solution nicotine 7 mg/24 hr daily 1 patch transdermal Q24H Smoking 12/27/22 04/13/23 Unknown History transdermal patch Cessation sennosides 8.6 mg tablet (senna) 8.6 mg PO DAILY PRN Constipation 12/27/22 04/13/23 Unknown History metoprolol tartrate 25 mg tablet 12.5 mg PO BID 02/20/23 04/13/23 Unknown History amiodarone 200 mg tablet 200 mg G-tube DAILY 03/20/23 04/13/23 Unknown History amoxicillin 875 mg-potassium 1 tab PO BID 04/13/23 04/13/23 Unknown History clavulanate 125 mg tablet insulin glargine 100 unit/mL (3 20 unit subcut BEDTIME 04/13/23 04/13/23 Unknown History mL) subcutaneous pen (Lantus Solostar U-100 Insulin) Physical Exam 2 Vital Signs and Narrative: Vital Signs: Last Vital Signs Temp 99.9 F 04/13/23 15:49 Pulse 82 04/13/23 15:49 Resp 32 H 04/13/23 15:49 BP 115/66 04/13/23 15:49 Pulse Ox 95 04/13/23 15:49 O2 Del Method Nasal Cannula 04/13/23 15:49 O2 Flow Rate 3 04/13/23 15:49 Oxygen Flow Rate 3 04/13/23 13:00 BMI result Body Mass Index 22.1 Constitutional - Awake and Alert, No apparent distress Eyes - PERRLA, EOMI Cardiovascular - S1S2, RRR, No edema Respiratory - Normal lung expansion, mild increased work of breathing, No respiratory distress, rhonchi bll Gastrointestinal - NT / ND; +BS; No rebound or guarding. colostomy bag in place, gtube in place Extremities - no calf tenderness bilaterally, no swelling Musculoskeletal - Normal inspection, normal ROM Skin - Warm/Dry. 1cm tunneling wound with erythematous edges and wick in place without purulent drainage noted. Stage 2 decubitus ulcer sarcum without surrounding erythema or warmth, no drainage. Neurological - Alert & oriented to self only Psychological - Appropriate affect Results Labs 04/14/23 05:27 04/14/23 05:27 Labs: Laboratory Results - last 24 hr 04/13/23 13:32 MCV 83.2 MCH 26.3 L MCHC 31.6 RDW 15.7 Plt Count 295 MPV 10.5 Immature Gran % (Auto) 0.6 H Neut % (Auto) 84.1 H Lymph % (Auto) 9.8 L [place] % (Auto) 4.8 Eos % (Auto) 0.5 Baso % (Auto) 0.2 Lymph # (Auto) 1.7 [place] # (Auto) 0.8 Eos # (Auto) 0.1 Baso # (Auto) 0.0 Abs Immat Gran (auto) 0.10 H Absolute Neuts (auto) 14.7 H Absolute Nucleated RBC 0.000 Nucleated RBC % (auto) 0.0 ESR 91 H Anion Gap 15 Estim Creat Clear Calc 79.9 Estimated GFR > 60 Random Glucose 341 H Lactic Acid 1.4 Calcium 10.6 H D Magnesium 2.0 Total Bilirubin 0.2 AST 221 H ALT 189 H Alkaline Phosphatase 159 H C-Reactive Protein 26.54 H Total Protein 7.5 Albumin 3.2 L Urine Color Dark Yellow Urine Appearance Cloudy Urine pH 5.5 Ur Specific [place] 1.025 Urine Protein 100 (2+) H Urine Glucose (UA) Negative Urine Ketones Trace Urine Blood Large (3+) H Urine Nitrite Negative Ur Leukocyte Esterase Moderate (2+) H Urine RBC >20 H Urine WBC >50 H Ur Squamous Epith Cells 0-2 Ur Transition Epith Cell Present Ur Renal Epithelial Cell Present Urine Bacteria Trace Hyaline Casts 11-20 Urine Yeast Present COVID-19 (NEEMA) Negative COVID-19 Clin Com See Note Influenza Type A (JORGE L) Negative Influenza Type B (JORGE L) Negative Influenza A & B Note See Note Imaging Radiologist's Impressions: Impressions Chest X-Ray 04/13/23 14:27 IMPRESSION: 1. Improving right midlung opacity. 2. New right lower lobe and left lower lobe pneumonia. Abdomen Ultrasound 04/13/23 14:54 IMPRESSION: 1. 1.2 cm echogenic focus in the right lobe of the liver may represent a hemangioma. 2. Cholelithiasis. 3. Trace perinephric fluid adjacent to the lower pole of the right kidney. Assessment and Plan (1) Aspiration pneumonia of both lower lobes: Status: Acute (2) Pressure injury of sacral region, stage 2: Status: Acute (3) Abdominal wound dehiscence: Status: Acute (4) Acute respiratory failure with hypoxia: Status: Resolved Plan 62-year-old male with history of coronary artery disease, history of TIA, paroxysmal atrial fibrillation, hypertension paranoid schizophrenia, hypothyroidism, hyperlipidemia, unspecified dementia, insulin-dependent type 2 diabetes, COPD admitted for aspiration pneumonia with acute hypoxemic respiratory failure. # acute aspiration pneumonia with acute hypoxemic respiratory failure and sepsis -leukocytosis 17.5, tachypneic, febrile. Lactic acid normal, no end-organ damage -CXR shows bilateral lower lobe pneumonia with concern for aspiration -given recent hospitalizations, treat with IV vancomycin and Zosyn (initiated 04/13) -NPO at baseline with G-tube, hold tube feedings at this time -Tylenol p.r.n. for fevers -continue supplemental O2 to maintain oximetry greater than 92% -follow CBC #? Abdominal wound dehiscence with infection -recent laparoscopy with question wound dehiscence and infection -IV vanco and Zosyn as above -defer further imaging to general surgery -general surgery consult # stage II decubitus ulcer sacrum -no evidence of infection -wound RN consult # paroxysmal atrial fibrillation-rate controlled -continue Eliquis for anticoagulation -continue amiodarone, metoprolol #Fungemia -Initiated on caspofungin 03/24 with 21 day course advised. Last dose 04/14 # hypertension -blood pressure reasonably controlled -continue metoprolol # hypothyroidism -continue levothyroxine # insulin-dependent type 2 diabetes -dose adjusted basal insulin to 10 units, increase once tube feeds initiated -hold on prandial insulin as tube feeds on hold -POC glucose # hyperlipidemia -continue statin DVT prophylaxis-on Eliquis DNR/DNI Patient requires inpatient stay at least 2 midnights for management of acute aspiration pneumonia with acute hypoxemic respiratory failure at risk for nosocomial infection given recent hospitalizations on broad-spectrum antibiotics and supplemental O2 Time Spent With Patient Time: Total time managing care of this patient today ____ minutes. Quality Stroke Does the patient have a stroke diagnosis?: No VTE Prior VTE?: No VTE Risk Level:: Medical - moderate - high VTE Device Contraindication: Treatment Not Indicated VTE Drug Contraindication: N/A - Med Ordered
--- NOTE | 2023-04-13 16:35 | PHA.MEDREC ---
Pharmacy Consult ? Medication Reconciliation Pharmacy has completed the medication reconciliation. Patient came from [facility] with med list. Kandice Mckenna, JasD
--- NOTE | 2023-04-13 17:11 | MHC.EDTECH ---
pt vitals sign taken ,pt was reposition with pillow underneath bottom and boosted up in bed ,foam dressing apply to coccyx .
[2023-04-13] MEDS: vancomycin HCL 1,000 MG, vancomycin HCL 750 MG in 0.9 % Sodium Chloride 500 ML 267.5 MG IV (17:25)
--- NOTE | 2023-04-13 17:37 | PHA.PROG ---
Admission Date/Time: April 13, 2023 16:27 Indication: Resp Infection Weight in k.039 kg Adjusted body weight in K kg [place] body weight in K.7 kg Obesity Dosing Indication % IBW: Serum Creatinine - Last 168 Hours 04/13/23 13:32 Creatinine 0.91 Estimated CrCl and GFR - Last 168 Hours 04/13/23 13:32 Estim Creat Clear Calc 79.9 Estimated GFR > 60 Vancomycin Loading Dose: 1750 mg Current Vancomycin Dosing Regimen: 750 mg Q12H Date and Time for next Vancomycin Level to be drawn: 04/14 @ 1500 Pharmacist Comments on Vancomycin Plan: patient received an adequate load dose in the er on 04/13 @ 1725 Maintenance dose vancomycin 750 mg Q12H is scheduled to start 04/14 @ 0500. Expected AUC 458 with a trough of 14 Patient previously receive vanco 1500 mg Q12H, however patient's SCr is no at baseline Pharmacy will monitor renal function daily Level will be drawn prior to 3rd dose to access for safety and efficacy Kandice Mckenna PharmD Vancomycin dosing will take advantage of Jinn as a clinical decision support tool that uses Bayesian modeling to calculate individual patient's pharmacokinetic parameters and forecast the patient's drug concentration time course with the target goal AUC 24 range of 400 - 600 mg/L/hr.
[2023-04-13] MEDS: 0.9 % Sodium Chloride 1,000 ML 80 ML IVCONT (18:47)
[2023-04-13 21:26] LABS: Glucose, Whole Blood 311 mg/dL (60-115)
[2023-04-13] MEDS: Metoprolol Tartrate 12.5 MG HALFTAB G-TUBE (21:41)
[2023-04-13] MEDS: Insulin Glargine,Hum.rec.anlog 100 UNIT/ML 10 ML VIAL 10 UNIT SUBCUT (21:41)
[2023-04-13] MEDS: Apixaban 5 MG TABLET G-TUBE (21:41)
[2023-04-13] MEDS: Atorvastatin Calcium 80 MG TABLET G-TUBE (21:41)
[2023-04-13] MEDS: Piperacillin Sodium/Tazobactam 4.5 GM in 0.9 % Sodium Chloride 100 ML IV (22:34)
[2023-04-14 03:14] VITALS: BP 105/64; PULSE 83; RESP 16; TEMP 36.3; O2SAT 94
[2023-04-14] MEDS: Piperacillin Sodium/Tazobactam 4.5 GM in 0.9 % Sodium Chloride 100 ML IV ×4 (04:03→21:30)
[2023-04-14] MEDS: vancomycin HCL 750 MG in 0.9 % Sodium Chloride 250 ML 265 MG IV (05:09)
[2023-04-14] MEDS: Omeprazole/Na Bicarb Oral Susp 20 MG/10 ML UD Cup G-TUBE ×2 (06:05→16:27)
[2023-04-14] MEDS: Levothyroxine Sodium 75 MCG TABLET G-TUBE (06:05)
[2023-04-14 06:46] LABS: MANUAL DIFF FLAG NO
[2023-04-14 07:04] LABS: Basophils Percent Auto 0.3 % (0-2); Eosinophils Absolute Auto 0.2 X10*3/uL (0.0-0.4); Eosinophils Percent Auto 1.5 % (0-4); Hematocrit 34.1 % (42.0-52.0); Hemoglobin 10.3 g/dl (14.0-18.0); Imm Gran Abs Auto 0.06 X10*3/uL (0.00-0.03); Imm Gran Pct Auto 0.4 % (0.0-0.4); Lymphocytes Absolute Auto 2.1 X10*3/uL (1.2-4.9); Lymphocytes Percent Auto 15.4 % (20-40); Mean Corpuscular HGB Conc 30.2 g/dl (31.0-36.0); Mean Corpuscular Hemoglobin 26.3 pg (27.0-33.0); Mean Platelet Volume 11.6 fL (9.4-12.4); Monocytes Absolute Auto 0.7 X10*3/uL (0.1-1.2); Monocytes Percent Auto 4.9 % (2-11); Neutrophils Absolute Auto 10.4 x10*3/uL (2.0-8.3); Neutrophils Percent Auto 77.5 % (45-73); Platelet Count 199 X10*3/uL (160-400); Red Blood Count 3.92 X10*6/uL (4.60-5.80); White Blood Count 13.4 X10*3/uL (4.8-10.8)
[2023-04-14 07:10] LABS: Anion Gap 16 (12-20); Blood Urea Nitrogen 20 mg/dL (9-16); Calcium 9.6 mg/dL (8.4-10.2); Carbon Dioxide 23 mmol/L (22-29); Chloride 114 mmol/L (96-108); Creatinine Clr Calc Pharmacy 96.3; Estimated Glomerular Filt Rate > 60; Glucose Random 245 mg/dL (60-115); Potassium 3.9 mmol/L (3.3-5.1); Sodium 149 mmol/L (135-145)
[2023-04-14 07:23] VITALS: BP 117/68; PULSE 75; RESP 18; TEMP 36.4; O2SAT 99
[2023-04-14 07:36] LABS: Glucose, Whole Blood 207 mg/dL (60-115)
[2023-04-14] MEDS: Amiodarone HCL 200 MG TABLET G-TUBE (08:19)
[2023-04-14] MEDS: Ferrous Sulfate 300 MG/5 ML LIQUID G-TUBE (08:19)
[2023-04-14] MEDS: Apixaban 5 MG TABLET G-TUBE ×2 (08:19→21:30)
[2023-04-14] MEDS: Lactulose 20 GM/30 ML SOLUTION G-TUBE (08:19)
[2023-04-14] MEDS: Dextrose 5 % 1,000 ML 125 ML IVCONT ×2 (08:19→23:15)
[2023-04-14] MEDS: Metoprolol Tartrate 12.5 MG HALFTAB G-TUBE ×2 (08:19→21:30)
[2023-04-14] MEDS: Nicotine 7 MG PATCH.TD24 TRANSDERMA (08:20)
[2023-04-14 08:34] LABS: Alanine Aminotransferase 117 U/L (0-40); Albumin Level 2.8 g/dL (3.5-5.0); Alkaline Phosphatase 117 U/L (39-117); Aspartate Amino Transferase 83 U/L (5-37); Bilirubin Direct 0.3 mg/dL (0.0-0.5); Bilirubin Total 0.5 mg/dL (0.0-1.0); Total Protein 6.4 g/dL (6.5-8.0)
[2023-04-14 10:31] VITALS: BMI 22.3
--- NOTE | 2023-04-14 10:35 | MHC.CLN ---
CONSULT PT WITH INCREASED NUTRITION RISK R/T PRESSURE INJURIES PT IS G-TUBE DEPENDENT AND FAMILIAR FROM PREVIOUS HOSPITAL ADMISSIONS PT IS CURRENTLY NPO IF TF NEEDED; RECOMMEND OSMOLITE 1.5 AT MAX GOAL RATE 55ML/HR CONT WITH 30ML PROSOURCE Q DAY AND 240ML FREE WATER FLUSHES Q 6 HRS TO PROVIDE 2040KCALS (30KCALS/KG), 98G PROTEIN (1.4G/KG), 1966ML TOTAL FLUID FROM FORMULA AND FLUSHES (29ML/KG) MONITOR TOLERANCE, RESIDUALS AND LYTES SEE ALSO FULL CLINICAL NUTRITION ASSESSMENT
[2023-04-14] MEDS: Caspofungin Acetate 50 MG in 0.9 % Sodium Chloride 250 ML 250 MG IV (11:01)
--- NOTE | 2023-04-14 11:14 | P.CONGS_ITS ---
History of Present Illness Consult details Consult date: 04/14/23 Narrative: 62 year old male with multiple medical comorbidities well known to surgical service who had ex lap, sigmoid resection, end colostomy for sigmoid volvulus followed by open gastrostomy tube placement in 02/2023. He was brought to the ED from [facility] where he resides for evaluation of cough, fever, and infected appearing wound of the abdomen. He had a recent admission in 04/11 for severe sepsis with shock in the setting of a nosocomial versus aspiration pneumonia with hypoxia and later found to have fungemia. He was tachypneic, hypoxic and febrile in the ED and admitted to the hospitalist service for presumed aspiration pneumonia, sepsis and started on IV vancomycin and Zosyn. General surgery was consulted for possible wound infection. 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 Paranoid schizophrenia Hyperlipidemia Hypothyroidism Anemia Encephalopathy Drug induced subacute dyskinesia Cognitive impairment Exotropia, alternating, with A pattern Hypermetropia of both eyes Dysphagia Boutonniere deformity of finger COVID-19 Type 2 diabetes mellitus COPD (chronic obstructive pulmonary disease) Dementia Surgical History Surgical History Presence of aortocoronary bypass graft Social History Social History Household Members: None Household Members Other:: [facility] Housing: Skilled Nursing Housing Other:: [facility] Do you presently have visiting nurse or other home services: No Unable to assess alcohol history related to: Unable to respond Alcohol intake: never Patient Tobacco Use Status: Former Tobacco user Tobacco use type: Cigarette Years Smoked: SURAJ Smoked in Last 30 Days: No Use of substances other than those prescribed or required for medical reasons: No Currently Displaying Signs/Symptoms of Drug Intoxication Withdrawal: No Advance Directives: Yes Advance Directives on File: Yes Advance Directives Date on File: 12/14/21 service: No Current occupational status: disabled Meds Allergies Allergy/AdvReac Type Severity Reaction Status Date / Time No Known Allergies Allergy Verified 04/13/23 23:45 [No Known Allergies*] Active Medications: Current Medications Acetaminophen (Acetaminophen 325 Mg Tablet) 650 mg G-TUBE Q6H PRN PRN Reason: Pain, Mild (Pain Scale 1-3) Amiodarone HCl (Amiodarone Hcl 200 Mg Tablet) 200 mg G-TUBE DAILY [facility] Last Admin: 04/14/23 08:19 Dose: 200 mg Apixaban (Apixaban 5 Mg Tablet) 5 mg G-TUBE BID [facility] Last Admin: 04/14/23 08:19 Dose: 5 mg Atorvastatin Calcium (Atorvastatin Calcium 80 Mg Tablet) 80 mg G-TUBE BEDTIME [facility] Last Admin: 04/13/23 21:41 Dose: 80 mg Dextrose (Dextrose 50 % 25 Gm/50 Ml Syringe) 25 gm IVPUSH Q15M PRN; Protocol PRN Reason: per Hypoglycemia Standing Ord. Ferrous Sulfate (Ferrous Sulfate 324 Mg Tablet.Dr) 324 mg PO DAILY@1700 [facility] Last Admin: 04/13/23 17:37 Dose: Not Given Ferrous Sulfate (Ferrous Sulfate 300 Mg/5 Ml Liquid) 300 mg G-TUBE DAILY [facility] Last Admin: 04/14/23 08:19 Dose: 300 mg Glucose (Glucose Gel 15 Gm Gel..Gram.) 15 gm PO Q15M PRN; Protocol PRN Reason: per Hypoglycemia Standing Ord. Piperacillin Sod/Tazobactam (Sod 4.5 gm/ Sodium Chloride) 100 mls @ 200 mls/hr IV Q6H [facility] Last Infusion: 04/14/23 10:57 Dose: Infused Caspofungin 50 mg/ Sodium (Chloride) 250 mls @ 250 mls/hr IV Q24H [facility] Stop: 04/14/23 11:59 Last Admin: 04/14/23 11:01 Dose: 250 mls/hr Vancomycin HCl 750 mg/ Sodium (Chloride) 265 mls @ 265 mls/hr IV Q12H [facility] Last Infusion: 04/14/23 06:12 Dose: Infused Dextrose (D5w) 1,000 mls @ 125 mls/hr IVCONT .Q8H [facility] Last Admin: 04/14/23 08:19 Dose: 125 mls/hr Insulin Glargine (Insulin Glargine,Hum.Rec.Anlog 100 Unit/Ml 10 Ml Vial) 10 unit SUBCUT BEDTIME [facility] Last Admin: 04/13/23 21:41 Dose: 10 unit Insulin Human Lispro (Insulin Lispro 100 Unit/Ml 3 Ml Vial) 0 unit SUBCUT QIDACHS [facility]; Protocol Lactulose (Lactulose 20 Gm/30 Ml Solution) 20 gm G-TUBE DAILY [facility] Last Admin: 04/14/23 08:19 Dose: 20 gm Levothyroxine Sodium (Levothyroxine Sodium 75 Mcg Tablet) 75 mcg G-TUBE DAILY@0600 [facility] Last Admin: 04/14/23 06:05 Dose: 75 mcg Metoprolol Tartrate (Metoprolol Tartrate 12.5 Mg Halftab) 12.5 mg G-TUBE BID [facility]; Protocol Last Admin: 04/14/23 08:19 Dose: 12.5 mg Nicotine (Nicotine 7 Mg Patch.Td24) 7 mg TRANSDERMA Q24H [facility] Last Admin: 04/14/23 08:20 Dose: 7 mg Omeprazole (Omeprazole/Na Bicarb Oral Susp 20 Mg/10 Ml Ud Cup) 20 mg G-TUBE BID@0630,1630 [facility] Last Admin: 04/14/23 06:05 Dose: 20 mg Ondansetron HCl (Ondansetron Hcl 4 Mg/2 Ml Vial) 4 mg IVPUSH Q8H PRN PRN Reason: Nausea and Vomiting Pharmacy Consult (Consult Rx Vancomycin Dosing) 1 each MISCELLANE DAILY PRN PRN Reason: Consult order Senna (Sennosides 8.6 Mg Tablet) 8.6 mg PO DAILY PRN PRN Reason: Constipation Sodium Chloride (0.9 % Sodium Chloride Flush 3 Ml Syringe) 3 ml IVFLUSH QSHIFT [facility] Last Admin: 04/14/23 07:26 Dose: Not Given Home Medications Medication Instructions Recorded Confirmed Last Taken Type lactulose 10 gram/15 mL oral 30 ml PO DAILY 12/13/21 04/13/23 12/12/21 History solution nicotine 7 mg/24 hr daily 1 patch transdermal Q24H Smoking 12/27/22 04/13/23 Unknown History transdermal patch Cessation sennosides 8.6 mg tablet (senna) 8.6 mg PO DAILY PRN Constipation 12/27/22 04/13/23 Unknown History metoprolol tartrate 25 mg tablet 12.5 mg PO BID 02/20/23 04/13/23 Unknown History amiodarone 200 mg tablet 200 mg G-tube DAILY 03/20/23 04/13/23 Unknown History amoxicillin 875 mg-potassium 1 tab PO BID 04/13/23 04/13/23 Unknown History clavulanate 125 mg tablet insulin glargine 100 unit/mL (3 20 unit subcut BEDTIME 04/13/23 04/13/23 Unknown History mL) subcutaneous pen (Lantus Solostar U-100 Insulin) Physical Exam 2 Vital Signs: Vital Signs: Last Vital Signs Temp 97.6 F 04/14/23 07:23 Pulse 75 04/14/23 07:23 Resp 18 04/14/23 07:23 BP 117/68 04/14/23 07:23 Pulse Ox 99 04/14/23 07:23 O2 Del Method Nasal Cannula 04/14/23 07:23 O2 Flow Rate 3 04/14/23 07:23 Oxygen Flow Rate 3 04/13/23 13:00 BMI result Body Mass Index 22.3 Const: General: comfortable, no acute distress and alert Resp: Effort & Inspection: normal respiratory effort GI: Other: small wound of superior aspect of incision; 2cm x 1.5 cm opening of inferior aspect of incision which was probed with qtip, fascia appears intact, no purulent drainage noted, some fibrinous exudate, no surrounding erythema G tube intact Inspection: No distended Palpation (GI): Soft to palpation, nontender, no guarding and not rigid Skin: General skin exam: no rashes or lesions noted Neuro: General: moves all extremities Results Labs 04/14/23 05:27 04/14/23 05:27 Labs: Abnormal lab results 04/13/23 04/13/23 04/14/23 Range/Units 13:32 21:22 05:27 WBC 17.5 H 13.4 H (4.8-10.8) X10*3/uL RBC 4.53 L 3.92 L (4.60-5.80) X10*6/uL Hgb 11.9 L 10.3 L (14.0-18.0) g/dl Hct 37.7 L 34.1 L (42.0-52.0) % MCH 26.3 L 26.3 L (27.0-33.0) pg MCHC 30.2 L (31.0-36.0) g/dl Immature Gran % (Auto) 0.6 H (0.0-0.4) % Neut % (Auto) 84.1 H 77.5 H (45-73) % Lymph % (Auto) 9.8 L 15.4 L (20-40) % Abs Immat Gran (auto) 0.10 H 0.06 H (0.00-0.03) X10*3/uL Absolute Neuts (auto) 14.7 H 10.4 H (2.0-8.3) x10*3/uL ESR 91 H (0-15) MM/HR Sodium 146 H 149 H (135-145) mmol/L Chloride 109 H 114 H (96-108) mmol/L BUN 27 H 20 H (9-16) mg/dL POC Glucose 311 H (60-115) mg/dL Random Glucose 341 H 245 H (60-115) mg/dL Calcium 10.6 H D (8.4-10.2) mg/dL AST 221 H 83 H (5-37) U/L ALT 189 H 117 H (0-40) U/L Alkaline Phosphatase 159 H (39-117) U/L C-Reactive Protein 26.54 H (< or = 0.50) mg/dL Total Protein 6.4 L (6.5-8.0) g/dL Albumin 3.2 L 2.8 L (3.5-5.0) g/dL Urine Protein 100 (2+) H (Neg-Trace) mg/dL Urine Blood Large (3+) H (Negative) Ur Leukocyte Esterase Moderate (2+) H (Negative) Urine RBC >20 H (0-2) /HPF Urine WBC >50 H (0-5) /HPF 04/14/23 Range/Units 07:22 WBC (4.8-10.8) X10*3/uL RBC (4.60-5.80) X10*6/uL Hgb (14.0-18.0) g/dl Hct (42.0-52.0) % MCH (27.0-33.0) pg MCHC (31.0-36.0) g/dl Immature Gran % (Auto) (0.0-0.4) % Neut % (Auto) (45-73) % Lymph % (Auto) (20-40) % Abs Immat Gran (auto) (0.00-0.03) X10*3/uL Absolute Neuts (auto) (2.0-8.3) x10*3/uL ESR (0-15) MM/HR Sodium (135-145) mmol/L Chloride (96-108) mmol/L BUN (9-16) mg/dL POC Glucose 207 H (60-115) mg/dL Random Glucose (60-115) mg/dL Calcium (8.4-10.2) mg/dL AST (5-37) U/L ALT (0-40) U/L Alkaline Phosphatase (39-117) U/L C-Reactive Protein (< or = 0.50) mg/dL Total Protein (6.5-8.0) g/dL Albumin (3.5-5.0) g/dL Urine Protein (Neg-Trace) mg/dL Urine Blood (Negative) Ur Leukocyte Esterase (Negative) Urine RBC (0-2) /HPF Urine WBC (0-5) /HPF Short CBC 04/13/23 04/14/23 Range/Units 13:32 05:27 WBC 17.5 H 13.4 H (4.8-10.8) X10*3/uL Hgb 11.9 L 10.3 L (14.0-18.0) g/dl Hct 37.7 L 34.1 L (42.0-52.0) % Plt Count 295 199 D (160-400) X10*3/uL BMP 04/13/23 04/14/23 13:32 05:27 Sodium 146 H 149 H Potassium 4.0 3.9 Chloride 109 H 114 H Carbon Dioxide 26 23 BUN 27 H 20 H Creatinine 0.91 0.76 Calcium 10.6 H D 9.6 D Liver Function 04/13/23 04/14/23 Range/Units 13:32 05:27 Total Bilirubin 0.2 0.5 (0.0-1.0) mg/dL Direct Bilirubin 0.3 (0.0-0.5) mg/dL AST 221 H 83 H (5-37) U/L ALT 189 H 117 H (0-40) U/L Alkaline Phosphatase 159 H 117 (39-117) U/L Albumin 3.2 L 2.8 L (3.5-5.0) g/dL Urine 04/13/23 Range/Units 13:32 Urine Color Dark Yellow Urine Appearance Cloudy Urine pH 5.5 (5.0-9.0) Ur Specific [place] 1.025 (1.005-1.025) Urine Protein 100 (2+) H (Neg-Trace) mg/dL Urine Glucose (UA) Negative (Negative) mg/dL All other labs normal. Assessment and Plan (1) Drainage from wound: Status: Acute Plan Overall the incision has healed well, there are small open areas that are clean appearing without evidence of infection. Continue local wound care with silver alginate packing to inferior wound and on superior wound followed by sterile dressing daily with hopes this continues to heal by secondary intention. Will follow-up p.r.n. Time Spent With Patient Time: Total time managing care of this patient today ____ minutes. Procedures Date of Service Date of Service: 04/14/23
[2023-04-14 11:45] LABS: Glucose, Whole Blood 263 mg/dL (60-115)
[2023-04-14] MEDS: Insulin Lispro 100 UNIT/ML 3 ML VIAL SUBCUT ×2 (11:53→16:27)
--- NOTE | 2023-04-14 14:16 | MHC.CM.PN ---
pt from [facility] where he will return when dcd
--- NOTE | 2023-04-14 14:54 | HO.PM.IMPN ---
Subjective Subjective Date of Service: 04/14/23 Interval History: Seen and evaluated this morning Altered, unable to provide any history No fever overnight Review of Systems Review of Systems: Yes Unobtainable due to mental status Physical Exam Vital Signs: Vital Signs: Last Vital Signs Temp 97.6 F 04/14/23 07:23 Pulse 75 04/14/23 07:23 Resp 18 04/14/23 07:23 BP 117/68 04/14/23 07:23 Pulse Ox 99 04/14/23 07:23 O2 Del Method Nasal Cannula 04/14/23 07:23 O2 Flow Rate 3 04/14/23 07:23 Oxygen Flow Rate 3 04/13/23 13:00 BMI result Body Mass Index 22.3 Const: Other: Appearance: Alert with stimulation. frail, cachectic Eyes: Pupils equal, round and reactive to light. ENT: Pharynx normal. Dry oral mucosa Neck: Normal inspection. Neck supple. No lymph nodes noted. No crepitus CVS: Normal heart rate and rhythm. Pulses normal. Normal S1 and S2 Respiratory: No respiratory distress. Breath sounds normal. No Wheezing. No rales Abdomen: Soft, abdominal wounds healing, scant yellowish drainage, G-tube in place Skin: Skin warm and clammy Extremities: No lower extremity edema. No Lacerations. No Rash Neuro: Weak, unable to participating cranial nerve assessment Psych: calm, cooperative Objective Data Active Medications Acetaminophen (Acetaminophen 325 Mg Tablet) 650 mg G-TUBE Q6H PRN PRN Reason: Pain, Mild (Pain Scale 1-3) Amiodarone HCl (Amiodarone Hcl 200 Mg Tablet) 200 mg G-TUBE DAILY [facility] Last Admin: 04/14/23 08:19 Dose: 200 mg Documented By: NATHANIEL Apixaban (Apixaban 5 Mg Tablet) 5 mg G-TUBE BID [facility] Last Admin: 04/14/23 08:19 Dose: 5 mg Documented By: NATHANIEL Atorvastatin Calcium (Atorvastatin Calcium 80 Mg Tablet) 80 mg G-TUBE BEDTIME [facility] Last Admin: 04/13/23 21:41 Dose: 80 mg Documented By: DANNA Dextrose (Dextrose 50 % 25 Gm/50 Ml Syringe) 25 gm IVPUSH Q15M PRN; Protocol PRN Reason: per Hypoglycemia Standing Ord. Ferrous Sulfate (Ferrous Sulfate 324 Mg Tablet.) 324 mg PO DAILY@1700 [facility] Last Admin: 04/13/23 17:37 Dose: Not Given Documented By: OLGA Non-Admin Reason: Patient Condition Contraindication Ferrous Sulfate (Ferrous Sulfate 300 Mg/5 Ml Liquid) 300 mg G-TUBE DAILY [facility] Last Admin: 04/14/23 08:19 Dose: 300 mg Documented By: NATHANIEL Glucose (Glucose Gel 15 Gm Gel..Gram.) 15 gm PO Q15M PRN; Protocol PRN Reason: per Hypoglycemia Standing Ord. Piperacillin Sod/Tazobactam (Sod 4.5 gm/ Sodium Chloride) 100 mls @ 200 mls/hr IV Q6H [facility] Last Infusion: 04/14/23 10:57 Dose: Infused Documented By: NATHANIEL Vancomycin HCl 750 mg/ Sodium (Chloride) 265 mls @ 265 mls/hr IV Q12H [facility] Last Infusion: 04/14/23 06:12 Dose: Infused Documented By: KELLY Dextrose (D5w) 1,000 mls @ 125 mls/hr IVCONT .Q8H [facility] Last Infusion: 04/14/23 12:07 Dose: 0 mls/hr Documented By: NATHANIEL Insulin Glargine (Insulin Glargine,Hum.Rec.Anlog 100 Unit/Ml 10 Ml Vial) 10 unit SUBCUT BEDTIME [facility] Last Admin: 04/13/23 21:41 Dose: 10 unit Documented By: DANNA Insulin Human Lispro (Insulin Lispro 100 Unit/Ml 3 Ml Vial) 0 unit SUBCUT QIDACHS [facility]; Protocol Last Admin: 04/14/23 11:53 Dose: 6 unit Documented By: NATHANIEL Lactulose (Lactulose 20 Gm/30 Ml Solution) 20 gm G-TUBE DAILY [facility] Last Admin: 04/14/23 08:19 Dose: 20 gm Documented By: NATHANIEL Levothyroxine Sodium (Levothyroxine Sodium 75 Mcg Tablet) 75 mcg G-TUBE DAILY@0600 [facility] Last Admin: 04/14/23 06:05 Dose: 75 mcg Documented By: KELLY Metoprolol Tartrate (Metoprolol Tartrate 12.5 Mg Halftab) 12.5 mg G-TUBE BID [facility]; Protocol Last Admin: 04/14/23 08:19 Dose: 12.5 mg Documented By: NATHANIEL Nicotine (Nicotine 7 Mg Patch.Td24) 7 mg TRANSDERMA Q24H [facility] Last Admin: 04/14/23 08:20 Dose: 7 mg Documented By: NATHANIEL Omeprazole (Omeprazole/Na Bicarb Oral Susp 20 Mg/10 Ml Ud Cup) 20 mg G-TUBE BID@0630,1630 [facility] Last Admin: 04/14/23 06:05 Dose: 20 mg Documented By: KELLY Ondansetron HCl (Ondansetron Hcl 4 Mg/2 Ml Vial) 4 mg IVPUSH Q8H PRN PRN Reason: Nausea and Vomiting Pharmacy Consult (Consult Rx Vancomycin Dosing) 1 each MISCELLANE DAILY PRN PRN Reason: Consult order Senna (Sennosides 8.6 Mg Tablet) 8.6 mg PO DAILY PRN PRN Reason: Constipation Sodium Chloride (0.9 % Sodium Chloride Flush 3 Ml Syringe) 3 ml IVFLUSH QSHIFT [facility] Last Admin: 04/14/23 07:26 Dose: Not Given Documented By: NATHANIEL Non-Admin Reason: IV Running Labs 04/14/23 05:27 04/14/23 05:27 Labs: Laboratory Results - last 24 hr 04/13/23 04/13/23 04/14/23 13:32 21:22 05:27 MCV 87.0 MCH 26.3 L MCHC 30.2 L RDW 16.0 Plt Count 199 D MPV 11.6 Immature Gran % (Auto) 0.4 Neut % (Auto) 77.5 H Lymph % (Auto) 15.4 L Saline % (Auto) 4.9 Eos % (Auto) 1.5 Baso % (Auto) 0.3 Lymph # (Auto) 2.1 Saline # (Auto) 0.7 Eos # (Auto) 0.2 Baso # (Auto) 0.0 Abs Immat Gran (auto) 0.06 H Absolute Neuts (auto) 10.4 H Absolute Nucleated RBC 0.000 Nucleated RBC % (auto) 0.0 ESR 91 H Anion Gap 16 Estim Creat Clear Calc 96.3 Estimated GFR > 60 POC Glucose 311 H Random Glucose 245 H Calcium 9.6 D Total Bilirubin 0.5 Direct Bilirubin 0.3 AST 83 H ALT 117 H Alkaline Phosphatase 117 Total Protein 6.4 L Albumin 2.8 L 04/14/23 04/14/23 07:22 11:41 MCV MCH MCHC RDW Plt Count MPV Immature Gran % (Auto) Neut % (Auto) Lymph % (Auto) Saline % (Auto) Eos % (Auto) Baso % (Auto) Lymph # (Auto) Saline # (Auto) Eos # (Auto) Baso # (Auto) Abs Immat Gran (auto) Absolute Neuts (auto) Absolute Nucleated RBC Nucleated RBC % (auto) ESR Anion Gap Estim Creat Clear Calc Estimated GFR POC Glucose 207 H 263 H Random Glucose Calcium Total Bilirubin Direct Bilirubin AST ALT Alkaline Phosphatase Total Protein Albumin Microbiology Microbiology Results: Microbiology 04/13/23 Unknown Urine Culture - Final Urine Catheterized - Major Catheter No growth. Assessment and Plan (1) Aspiration pneumonia of both lower lobes: Status: Acute (2) Pressure injury of sacral region, stage 2: Status: Acute (3) Pneumonia: Status: Acute Plan 62-year-old male with history of coronary artery disease, history of TIA, paroxysmal atrial fibrillation, hypertension paranoid schizophrenia, hypothyroidism, hyperlipidemia, unspecified dementia, insulin-dependent type 2 diabetes, COPD admitted for aspiration pneumonia with acute hypoxemic respiratory failure. 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 for fevers supplemental O2 to maintain oximetry greater than 92%, wean down as tolerated # Abdominal wound drainage recent laparoscopy General surgery consult # stage II decubitus ulcer sacrum no evidence of infection wound RN consult # paroxysmal atrial fibrillation-rate controlled continue Eliquis for anticoagulation continue amiodarone, metoprolol #Fungemia Initiated on caspofungin 03/24 with 21 day course advised. Last dose 04/14 # hypertension blood pressure reasonably controlled continue metoprolol # hypothyroidism continue levothyroxine # insulin-dependent type 2 diabetes dose adjusted basal insulin to 10 units, increase once tube feeds initiated hold on prandial insulin as tube feeds on hold POC glucose # hyperlipidemia continue statin DVT prophylaxis on Eliquis DNR/DNI Patient requires inpatient stay overnight for management of acute aspiration pneumonia with acute hypoxemic respiratory failure at risk for nosocomial infection given recent hospitalizations on broad-spectrum antibiotics and supplemental O2 Time Spent With Patient Time: Total time managing care of this patient today ____ minutes. Quality Stroke Does the patient have a stroke diagnosis?: No VTE Prior VTE?: No VTE Risk Level:: Medical - moderate - high VTE Device Contraindication: Treatment Not Indicated VTE Drug Contraindication: N/A - Med Ordered
[2023-04-14 15:05] VITALS: BP 125/67; PULSE 68; RESP 20; TEMP 36.6; O2SAT 99
--- NOTE | 2023-04-14 15:12 | HO.WOUND ---
Addendum entered by Erika Ayon 04/14/23 16:09: Sacral wound bed appearance was medium pink tissue and medium slough. Original Note: Wound Care Consult Reason for consult: sacral pressure injury Patient was seen in bed at the time of consult. Patient resides at a nursing facility. He has a Stage 3 pressure injury to his sacrum and a DTI to his right ischium. Foam borders removed from both areas. The right ischium dressing had no drainage. DTI area had a deep purplish center with non blanchable redness surrounding. The area measured 5.5cm x 2.6cm. Surrounding skin intact. Foam border applied to area. The sacrum dressing had a moderate amount of serosanguineous drainage. The wound edges were intact. No odor. Surrounding skin was dry. Wound area was a cluster of 3 measuring 4cm x 4.9cm x 0.1cm. Cleansed area with sea clense wound cleanser. Zinc barrier cream applied to the periwound. Alginate ag cut to wound sizes and applied to the wound beds. Covered with a foam border. Recommendation: For the DTI on the right ischium, keep area padded with a foam border. May change as needed. For the sacrum, cleanse wounds with normal saline or sea clense wound cleanser. Apply a thin layer of zinc to the periwound. Cut alginate ag (durafiber) to the wound sizes and apply to the wound beds. Cover with a foam border. Change dressing daily. If alginate ag is still dry on dressing changes, may change frequency to every other day. Patient will need frequent repositioning to keep these areas from deteriorating. Nutrition will also need to be evaluated if not aleady done to see if protein intake can be increased for wound healing. If there are any changes or questions, please feel free to reconsult wound care.
[2023-04-14 15:17] LABS: Anion Gap 11 (12-20); Blood Urea Nitrogen 17 mg/dL (9-16); Calcium 9.2 mg/dL (8.4-10.2); Carbon Dioxide 25 mmol/L (22-29); Chloride 114 mmol/L (96-108); Creatinine Clr Calc Pharmacy 97.6; Estimated Glomerular Filt Rate > 60; Glucose Random 244 mg/dL (60-115); Potassium 3.5 mmol/L (3.3-5.1); Sodium 146 mmol/L (135-145)
[2023-04-14 15:59] LABS: Vancomycin Random 10.1 mcg/mL (15-20)
[2023-04-14 16:16] LABS: Glucose, Whole Blood 201 mg/dL (60-115)
[2023-04-14] MEDS: vancomycin HCL 1,250 MG in 0.9 % Sodium Chloride 250 ML 166.67 MG IV (17:10)
[2023-04-14 19:11] VITALS: BP 114/63; PULSE 79; RESP 16; TEMP 36.1; O2SAT 96
[2023-04-14 20:35] LABS: Glucose, Whole Blood 131 mg/dL (60-115)
[2023-04-14] MEDS: Insulin Glargine,Hum.rec.anlog 100 UNIT/ML 10 ML VIAL 10 UNIT SUBCUT (21:29)
[2023-04-14] MEDS: Atorvastatin Calcium 80 MG TABLET G-TUBE (21:29)
[2023-04-15 03:35] VITALS: BP 120/67; PULSE 69; RESP 16; TEMP 36.1; O2SAT 98
[2023-04-15] MEDS: Piperacillin Sodium/Tazobactam 4.5 GM in 0.9 % Sodium Chloride 100 ML IV ×4 (03:41→21:39)
[2023-04-15] MEDS: vancomycin HCL 1,250 MG in 0.9 % Sodium Chloride 250 ML 166.66 MG IV (04:50)
[2023-04-15 06:08] LABS: Hemoglobin 9.8 g/dl (14.0-18.0); Mean Corpuscular HGB Conc 30.6 g/dl (31.0-36.0); Mean Corpuscular Hemoglobin 25.8 pg (27.0-33.0); Mean Corpuscular Volume 84.2 fL (80.0-98.0); Mean Platelet Volume 10.7 fL (9.4-12.4); Platelet Count 241 X10*3/uL (160-400); Red Cell Distribution Width 15.6 % (11.0-16.0); White Blood Count 11.4 X10*3/uL (4.8-10.8)
[2023-04-15] MEDS: Omeprazole/Na Bicarb Oral Susp 20 MG/10 ML UD Cup G-TUBE ×2 (06:13→16:39)
[2023-04-15] MEDS: Levothyroxine Sodium 75 MCG TABLET G-TUBE (06:13)
[2023-04-15 06:28] LABS: Anion Gap 11 (12-20); Blood Urea Nitrogen 13 mg/dL (9-16); Calcium 8.7 mg/dL (8.4-10.2); Carbon Dioxide 26 mmol/L (22-29); Chloride 107 mmol/L (96-108); Creatinine Clr Calc Pharmacy 90.4; Estimated Glomerular Filt Rate > 60; Potassium 3.4 mmol/L (3.3-5.1); Sodium 141 mmol/L (135-145)
[2023-04-15 06:38] LABS: Glucose Random 364 mg/dL (60-115)
[2023-04-15 07:08] VITALS: BP 114/61; PULSE 71; RESP 22; TEMP 36.5; O2SAT 91
[2023-04-15 07:34] LABS: Glucose, Whole Blood 331 mg/dL (60-115)
[2023-04-15] MEDS: Insulin Lispro 100 UNIT/ML 3 ML VIAL SUBCUT ×4 (08:20→21:08)
[2023-04-15] MEDS: Lactulose 20 GM/30 ML SOLUTION G-TUBE (08:21)
[2023-04-15] MEDS: Nicotine 7 MG PATCH.TD24 TRANSDERMA (08:21)
[2023-04-15] MEDS: Ferrous Sulfate 300 MG/5 ML LIQUID G-TUBE (08:21)
[2023-04-15] MEDS: Apixaban 5 MG TABLET G-TUBE ×2 (08:22→21:12)
[2023-04-15] MEDS: Metoprolol Tartrate 12.5 MG HALFTAB G-TUBE ×2 (08:22→21:12)
[2023-04-15] MEDS: Amiodarone HCL 200 MG TABLET G-TUBE (08:22)
[2023-04-15 08:45] VITALS: O2SAT 97
--- NOTE | 2023-04-15 10:16 | HO.PM.IMPN ---
Subjective Subjective Date of Service: 04/15/23 Interval History: no complaints Physical Exam Vital Signs: Vital Signs: Last Vital Signs Temp 97.7 F 04/15/23 07:08 Pulse 71 04/15/23 07:08 Resp 22 H 04/15/23 07:08 BP 114/61 04/15/23 07:08 Pulse Ox 97 04/15/23 08:45 O2 Del Method Nasal Cannula 04/15/23 08:45 O2 Flow Rate 2 04/15/23 08:45 Oxygen Flow Rate 3 04/13/23 13:00 BMI result Body Mass Index 22.3 Const: Other: Appearance: Alert with stimulation. frail, cachectic Eyes: Pupils equal, round and reactive to light. ENT: Pharynx normal. Dry oral mucosa Neck: Normal inspection. Neck supple. No lymph nodes noted. No crepitus CVS: Normal heart rate and rhythm. Pulses normal. Normal S1 and S2 Respiratory: No respiratory distress. Breath sounds normal. No Wheezing. No rales Abdomen: Soft, abdominal wounds healing, scant yellowish drainage, G-tube in place Skin: Skin warm and clammy Extremities: No lower extremity edema. No Lacerations. No Rash Neuro: Weak, unable to participating cranial nerve assessment Psych: calm, cooperative Objective Data Active Medications Acetaminophen (Acetaminophen 325 Mg Tablet) 650 mg G-TUBE Q6H PRN PRN Reason: Pain, Mild (Pain Scale 1-3) Amiodarone HCl (Amiodarone Hcl 200 Mg Tablet) 200 mg G-TUBE DAILY [facility] Last Admin: 04/15/23 08:22 Dose: 200 mg Documented By: MICHEAL Apixaban (Apixaban 5 Mg Tablet) 5 mg G-TUBE BID [facility] Last Admin: 04/15/23 08:22 Dose: 5 mg Documented By: MICHEAL Atorvastatin Calcium (Atorvastatin Calcium 80 Mg Tablet) 80 mg G-TUBE BEDTIME [facility] Last Admin: 04/14/23 21:29 Dose: 80 mg Documented By: TIMRISLalo Dextrose (Dextrose 50 % 25 Gm/50 Ml Syringe) 25 gm IVPUSH Q15M PRN; Protocol PRN Reason: per Hypoglycemia Standing Ord. Ferrous Sulfate (Ferrous Sulfate 300 Mg/5 Ml Liquid) 300 mg G-TUBE DAILY [facility] Last Admin: 04/15/23 08:21 Dose: 300 mg Documented By: MICHEAL Glucose (Glucose Gel 15 Gm Gel..Gram.) 15 gm PO Q15M PRN; Protocol PRN Reason: per Hypoglycemia Standing Ord. Piperacillin Sod/Tazobactam (Sod 4.5 gm/ Sodium Chloride) 100 mls @ 200 mls/hr IV Q6H [facility] Last Infusion: 04/15/23 09:34 Dose: Infused Documented By: MICHEAL Vancomycin HCl 1,250 mg/ (Sodium Chloride) 250 mls @ 166.667 mls/hr IV Q12H [facility] Last Infusion: 04/15/23 06:24 Dose: Infused Documented By: KELLY Insulin Glargine (Insulin Glargine,Hum.Rec.Anlog 100 Unit/Ml 10 Ml Vial) 10 unit SUBCUT BEDTIME [facility] Last Admin: 04/14/23 21:29 Dose: 10 unit Documented By: KELLY Insulin Human Lispro (Insulin Lispro 100 Unit/Ml 3 Ml Vial) 0 unit SUBCUT QIDACHS [facility]; Protocol Last Admin: 04/15/23 08:20 Dose: 10 unit Documented By: MICHEAL Lactulose (Lactulose 20 Gm/30 Ml Solution) 20 gm G-TUBE DAILY [facility] Last Admin: 04/15/23 08:21 Dose: 20 gm Documented By: MICHEAL Levothyroxine Sodium (Levothyroxine Sodium 75 Mcg Tablet) 75 mcg G-TUBE DAILY@0600 [facility] Last Admin: 04/15/23 06:13 Dose: 75 mcg Documented By: KELLY Metoprolol Tartrate (Metoprolol Tartrate 12.5 Mg Halftab) 12.5 mg G-TUBE BID [facility]; Protocol Last Admin: 04/15/23 08:22 Dose: 12.5 mg Documented By: MICHEAL Nicotine (Nicotine 7 Mg Patch.Td24) 7 mg TRANSDERMA Q24H [facility] Last Admin: 04/15/23 08:21 Dose: 7 mg Documented By: MICHEAL Omeprazole (Omeprazole/Na Bicarb Oral Susp 20 Mg/10 Ml Ud Cup) 20 mg G-TUBE BID@0630,1630 [facility] Last Admin: 04/15/23 06:13 Dose: 20 mg Documented By: KELLY Ondansetron HCl (Ondansetron Hcl 4 Mg/2 Ml Vial) 4 mg IVPUSH Q8H PRN PRN Reason: Nausea and Vomiting Pharmacy Consult (Consult Rx Vancomycin Dosing) 1 each MISCELLANE DAILY PRN PRN Reason: Consult order Senna (Sennosides 8.6 Mg Tablet) 8.6 mg PO DAILY PRN PRN Reason: Constipation Sodium Chloride (0.9 % Sodium Chloride Flush 3 Ml Syringe) 3 ml IVFLUSH QSHIFT [facility] Last Admin: 04/15/23 08:23 Dose: Not Given Documented By: MICHEAL Non-Admin Reason: IV Running Labs 04/15/23 05:56 04/15/23 05:56 Labs: Laboratory Results - last 24 hr 04/14/23 04/14/23 04/14/23 11:41 14:48 16:11 MCV MCH MCHC RDW Plt Count MPV Absolute Nucleated RBC Nucleated RBC % (auto) Anion Gap 11 L Estim Creat Clear Calc 97.6 Estimated GFR > 60 POC Glucose 263 H 201 H Random Glucose 244 H Calcium 9.2 Random Vancomycin 10.1 L 04/14/23 04/15/23 04/15/23 20:32 05:56 07:15 MCV 84.2 MCH 25.8 L MCHC 30.6 L RDW 15.6 Plt Count 241 MPV 10.7 Absolute Nucleated RBC 0.000 Nucleated RBC % (auto) 0.0 Anion Gap 11 L Estim Creat Clear Calc 90.4 Estimated GFR > 60 POC Glucose 131 H 331 H Random Glucose 364 H* Calcium 8.7 Random Vancomycin Microbiology Microbiology Results: Microbiology 04/13/23 13:56 Blood Culture - Preliminary Blood - Venous No growth after 24 hours. 04/13/23 13:32 Blood Culture - Preliminary Blood - Venous No growth after 24 hours. 04/13/23 Unknown Urine Culture - Final Urine Catheterized - Major Catheter No growth. Assessment and Plan (1) Aspiration pneumonia of both lower lobes: Status: Acute (2) Pressure injury of sacral region, stage 2: Status: Acute (3) Pneumonia: Status: Acute Plan 62-year-old male with history of coronary artery disease, history of TIA, paroxysmal atrial fibrillation, hypertension paranoid schizophrenia, hypothyroidism, hyperlipidemia, unspecified dementia, insulin-dependent type 2 diabetes, COPD presented with fever and acute hypoxemic respiratory failure. acute aspiration pneumonia with acute hypoxemic respiratory failure and sepsis CXR shows bilateral lower lobe pneumonia with concern for aspiration Continue IV vancomycin and Zosyn (initiated 04/13) supplemental O2 to maintain oximetry greater than 92%, wean down as tolerated dysphagia tube feeds hypernatremia resolved Abdominal wound drainage recent laparoscopy General surgery appreciated, does not appear infected stage II decubitus ulcer sacrum no evidence of infection wound RN consult paroxysmal atrial fibrillation-rate controlled continue Eliquis for anticoagulation continue amiodarone, metoprolol Fungemia completed 21 day course caspofungin 04/14 hypertension blood pressure reasonably controlled continue metoprolol hypothyroidism continue levothyroxine insulin-dependent type 2 diabetes insulin hyperlipidemia continue statin DVT prophylaxis on Eliquis DNR/DNI reason for continued hospitalization:hypoxia, monitor fevers, cultures Time Spent With Patient Time: Total time managing care of this patient today ____ minutes. Quality Stroke Does the patient have a stroke diagnosis?: No VTE Prior VTE?: No VTE Risk Level:: Medical - moderate - high VTE Device Contraindication: Treatment Not Indicated VTE Drug Contraindication: N/A - Med Ordered
--- NOTE | 2023-04-15 11:01 | P.CDIM_ITS ---
PROVIDER RESPONSE TEXT: To clarify, the appropriate diagnosis supported by the clinical indicators: Please describe any known complications: hpyerglycemia QUERY TEXT: PHYSICIAN'S DOCUMENTATION REQUEST Date of Query: 04/15/2023 10:51 AM EDT Patient Name: Alejo Shetty Admit Date: 04/13/2023 Dear Ezra Ward, A review of the medical record indicates additional documentation may be needed. Please review below and update the documentation accordingly. Clinical Indicators: Per Hospitalist Progress Note 04/15/23: insulin-dependent type 2 diabetes insulin POC Glucose 04/15/23: 331 Random Glucose 04/15/23 364 Please clarify the following regarding the Complications of Diabetes Mellitus (DM): Please describe any known complications Hyperglycemia, No complications of DM Other (explain)Clinically unable to determine (explain)Thank you, Jolene Ling RN Use of terms such as suspected, likely, concern for, or probable (associated with a specific diagnosi s that is being evaluated, monitored, or treated as if it exists) are acceptable and can be coded in the inpatient se tting, when documented at the time of discharge. Please use your independent medical judgment in providing your response. THIS QUERY IS PART OF THE PERMANENT MEDICAL RECORD
[2023-04-15 11:16] LABS: Glucose, Whole Blood 343 mg/dL (60-115)
--- NOTE | 2023-04-15 12:02 | MHC.CLN ---
F/U PATIENT IS G-TUBE DEPENDENT. TOLERATING TUBE FEEDING AT MAX GOAL RATE: OSMOLITE 1.5 AT MAX GOAL RATE 55ML/HR CONT WITH 30ML PROSOURCE Q DAY AND 240ML FREE WATER FLUSHES Q 6 HRS TO PROVIDE 2040KCALS (30KCALS/KG), 98G PROTEIN (1.4G/KG), 1966ML TOTAL FLUID FROM FORMULA AND FLUSHES (29ML/KG). REVIEWED WOUND DOC SHOWING STAGE III TO SACRUM AND DTI TO RIGHT ISCHIUM. INCREASED PROTEIN APPROPRIATE TO PROMOTE WOUND HEALING. CONTINUE CURRENT TUBE FEED ORDERS. MONITOR TOLERANCE, RESIDUALS AND LYTES.
--- NOTE | 2023-04-15 13:55 | MHC.CM.PN ---
per rounds pt still acute and not ready for dc
[2023-04-15 15:13] VITALS: BP 119/66; PULSE 65; RESP 65; TEMP 36.5; O2SAT 99
[2023-04-15 16:15] LABS: Glucose, Whole Blood 338 mg/dL (60-115)
[2023-04-15] MEDS: 0.9 % Sodium Chloride Flush 3 ML SYRINGE IVFLUSH (16:39)
[2023-04-15 18:23] LABS: Vancomycin Random 13.6 mcg/mL (15-20)
--- NOTE | 2023-04-15 18:36 | HE.PHANOTE ---
RE VANCO DOSING SCR STABLE. TROUGH RETURNED LOW AT 13.6, BUT DRAWN 3 HOURS LATE DUE TO PATIENT BEING DIFFICULT STICK. RETIMED VANCO AT SAME REGIMEN AND SCHEDULED TROUGH FOR 04/16 @1700 TO ENSURE PROPER DOSE.
[2023-04-15] MEDS: vancomycin HCL 1,250 MG in 0.9 % Sodium Chloride 250 ML 166.67 MG IV (19:35)
[2023-04-15 20:00] VITALS: BP 123/63; PULSE 67; RESP 19; TEMP 36.4; O2SAT 100
[2023-04-15 20:39] LABS: Glucose, Whole Blood 349 mg/dL (60-115)
[2023-04-15] MEDS: Insulin Glargine,Hum.rec.anlog 100 UNIT/ML 10 ML VIAL 10 UNIT SUBCUT (21:08)
[2023-04-15] MEDS: Atorvastatin Calcium 80 MG TABLET G-TUBE (21:12)
[2023-04-15 22:08] LABS: Glucose, Whole Blood 309 mg/dL (60-115)
--- NOTE | 2023-04-15 22:42 | HO.SKINPHOTO ---
Location: coccyx Category: pressure Stage: III Length: 4 Width: 2 Depth: cm Location: Category: Stage: Length: Width: Depth: cm Location: Category: Stage: Length: Width: Depth: cm Location: Category: Stage: Length: Width: Depth: cm Location: Category: Stage: Length: Width: Depth: cm Location: Category: Stage: Length: Width: Depth: cm
[2023-04-16] MEDS: 0.9 % Sodium Chloride Flush 3 ML SYRINGE IVFLUSH ×2 (00:19→08:43)
[2023-04-16 04:00] VITALS: BP 124/60; PULSE 82; RESP 16; TEMP 36; O2SAT 95
[2023-04-16] MEDS: Piperacillin Sodium/Tazobactam 4.5 GM in 0.9 % Sodium Chloride 100 ML IV ×2 (04:06→09:46)
[2023-04-16] MEDS: Levothyroxine Sodium 75 MCG TABLET G-TUBE (06:05)
[2023-04-16] MEDS: Omeprazole/Na Bicarb Oral Susp 20 MG/10 ML UD Cup G-TUBE ×2 (06:06→18:42)
[2023-04-16] MEDS: vancomycin HCL 1,250 MG in 0.9 % Sodium Chloride 250 ML 166.67 MG IV (06:24)
[2023-04-16 06:33] LABS: Hemoglobin 10.3 g/dl (14.0-18.0); Mean Corpuscular HGB Conc 31.2 g/dl (31.0-36.0); Mean Corpuscular Hemoglobin 26.1 pg (27.0-33.0); Mean Corpuscular Volume 83.5 fL (80.0-98.0); Mean Platelet Volume 10.5 fL (9.4-12.4); Platelet Count 278 X10*3/uL (160-400); Red Blood Count 3.95 X10*6/uL (4.60-5.80); Red Cell Distribution Width 15.1 % (11.0-16.0); White Blood Count 9.8 X10*3/uL (4.8-10.8)
[2023-04-16 06:49] LABS: Anion Gap 13 (12-20); Blood Urea Nitrogen 13 mg/dL (9-16); Calcium 8.8 mg/dL (8.4-10.2); Carbon Dioxide 26 mmol/L (22-29); Chloride 109 mmol/L (96-108); Creatinine Clr Calc Pharmacy 97.6; Estimated Glomerular Filt Rate > 60; Glucose Fasting 347 mg/dL (60-99); Potassium 3.9 mmol/L (3.3-5.1); Sodium 144 mmol/L (135-145)
[2023-04-16 07:22] LABS: Glucose, Whole Blood 323 mg/dL (60-115)
[2023-04-16 07:55] VITALS: BP 132/74; PULSE 65; RESP 18; TEMP 36.1; O2SAT 100
[2023-04-16] MEDS: Insulin Lispro 100 UNIT/ML 3 ML VIAL SUBCUT ×3 (08:15→21:17)
[2023-04-16] MEDS: Metoprolol Tartrate 12.5 MG HALFTAB G-TUBE ×2 (08:42→21:18)
[2023-04-16] MEDS: Apixaban 5 MG TABLET G-TUBE (08:42)
[2023-04-16] MEDS: Nicotine 7 MG PATCH.TD24 TRANSDERMA (08:42)
[2023-04-16] MEDS: Amiodarone HCL 200 MG TABLET G-TUBE (08:43)
[2023-04-16] MEDS: Lactulose 20 GM/30 ML SOLUTION G-TUBE (08:43)
[2023-04-16] MEDS: Ferrous Sulfate 300 MG/5 ML LIQUID G-TUBE (08:43)
--- NOTE | 2023-04-16 09:18 | PM.DS ---
DS: Providers Provider Date of Service: 04/17/23 Date of admission: 04/13/23 16:27 Primary care physician: Lamonte Jenkins DO Consults: 04/13/23 16:45 Consult to General Surgery Routine Consulting Provider: [facility] Reason for consultation: ?wound dehiscence/fistula suprapubic area DS: Diagnosis Discharge Diagnosis (1) Aspiration pneumonia of both lower lobes: Status: Acute (2) Pressure injury of sacral region, stage 2: Status: Acute (3) Pneumonia: Status: Acute DS: Summary Hospital Course Hospital Course: from initial hpi: 62-year-old male with history of coronary artery disease, history of TIA, paroxysmal atrial fibrillation, hypertension paranoid schizophrenia, hypothyroidism, hyperlipidemia, unspecified dementia, [id number] type 2 diabetes, COPD presented to the ED earlier today via EMS from [facility] where he resides for evaluation of cough, fever, and infected appearing wound of the abdomen. The patient is unable to provide history secondary to his dementia and cognitive impairment. The patient was recently admitted from initially to ICU due to severe sepsis with shock in the setting of a nosocomial versus aspiration pneumonia with hypoxia and was intubated for airway protection treated with vasopressors. He was stepped down to the medical floors found to have fungemia treated with antifungal therapy (completed 21 day course initiated inpt) and IV Zosyn. He was transferred back to ICU due to hypotension with concern for GI bleed but was ruled out. He was discharged on 20/ day course of caspofungin and Augmentin. Prior to this, had three week stay for volvulus and colostomy. On arrival, patient febrile to 100.9, tachypneic to 40, and hypoxic requiring 3 L supplemental O2. He has a leukocytosis of 17.5. Creatinine 0.91, BUN 27. Sodium 146, potassium 4.0, chloride 109, glucose 341. AST 221, ALT 189. CRP 26.54, ESR 91. Chest x-ray shows improving right midlung opacity but new right lower and left lower lobe pneumonia. S abdominal ultrasound shows 1.2 cm echogenic focus in the right lobe of the liver possibly representing hemangioma as well as cholelithiasis and trace perinephric fluid adjacent to the lower pole the right kidney. In the ED has been treated with IV vancomycin, IV Zosyn, 2500 mL IV NS, and was also given 1 g ceftriaxone. hospital course: Patient was admitted for acute hypoxic respiratory failure and sepsis due to acute aspiration pneumonia/pneumonitis. He was treated with IV Zosyn and will continue on Augmentin on discharge. Due to dysphagia his NPO will continue with tube feeds. Hypernatremia resolved. There was concern of abdominal wound drainage, he was seen by General surgery who felt there is no acute infection recommended continue silver alginate and dry sterile dressings. For stage II decubitus ulcer of the sacrum there is no evidence of infection, local care should be continued. For paroxysmal atrial fibrillation he was continued on Eliquis, amiodarone, metoprolol. For recent fungemia, caspofungin 3 week course was completed on 04/14. For hypertension he was continued on metoprolol. For hypothyroidism was continue on Synthroid. For diabetes with hyperglycemia was continued on insulin. For hyperlipidemia was continue on statin. patient was initially planned to be discharged 04/16/23, but on way out of hospital had epistaxis complicate by aspiration pneumonitis, was monitored overnight due to tachypnea and diaphoresis, which resolved. his eliquis will be held 48 hours. Patient is now medically stable will be discharged back to longterm facility. Time Spent with Patient Time attestation: Total time managing care of this patient today ____ minutes. Discharge coordination time: Greater than 30 minutes Quality: Safe Use of Opioids Does Pt have an Active Cancer Diagnosis on the Problem List?: No Quality: Stroke Does the patient have a stroke diagnosis?: No Physical Exam Vital Signs: Vital Signs: Last Vital Signs Temp 97.0 F 04/16/23 07:55 Pulse 65 04/16/23 07:55 Resp 18 04/16/23 07:55 BP 132/74 04/16/23 07:55 Pulse Ox 100 04/16/23 07:55 O2 Del Method Nasal Cannula 04/16/23 07:55 O2 Flow Rate 2 04/16/23 07:55 Oxygen Flow Rate 3 04/13/23 13:00 BMI result Body Mass Index 22.3 alert, no acute distress, minimally verbal, abd wounds appear clean DS: Data Data Completed and Pending Completed studies during hospitalization [Text1]: Procedures Bypass Sigmoid Colon to Cutaneous, Open Approach (02/20/23) Dilation of Sigmoid Colon, Via Natural or Artificial Opening Endoscopic (02/20/23) Insertion of Endotracheal Airway into Trachea, Via Natural or Artificial Opening (03/20/23) Insertion of Feeding Device into Stomach, Open Approach (02/20/23) Insertion of Infusion Device into Superior Vena Cava, Percutaneous Approach (03/20/23) Introduction of Vasopressor into Central Vein, Percutaneous Approach (03/20/23) Repair Face Skin, External Approach (12/27/22) Resection of Sigmoid Colon, Open Approach (02/20/23) Respiratory Ventilation, 24-96 Consecutive Hours (03/20/23) Transfusion of Nonautologous Red Blood Cells into Peripheral Vein, Percutaneous Approach (03/20/23) Ultrasonography of Superior Vena Cava, Guidance (03/20/23) Labs on day of discharge: Laboratory Results - last 24 hr 04/15/23 04/15/23 04/15/23 11:09 16:08 18:03 WBC RBC Hgb Hct MCV MCH MCHC RDW Plt Count MPV Absolute Nucleated RBC Nucleated RBC % (auto) Sodium Potassium Chloride Carbon Dioxide Anion Gap BUN Creatinine Estim Creat Clear Calc Estimated GFR POC Glucose 343 H 338 H Fasting Glucose Calcium Random Vancomycin 13.6 L 04/15/23 04/15/23 04/16/23 20:36 22:05 05:48 WBC 9.8 RBC 3.95 L Hgb 10.3 L Hct 33.0 L MCV 83.5 MCH 26.1 L MCHC 31.2 RDW 15.1 Plt Count 278 MPV 10.5 Absolute Nucleated RBC 0.000 Nucleated RBC % (auto) 0.0 Sodium 144 Potassium 3.9 Chloride 109 H Carbon Dioxide 26 Anion Gap 13 BUN 13 Creatinine 0.75 Estim Creat Clear Calc 97.6 Estimated GFR > 60 POC Glucose 349 H 309 H Fasting Glucose 347 H Calcium 8.8 Random Vancomycin 04/16/23 07:17 WBC RBC Hgb Hct MCV MCH MCHC RDW Plt Count MPV Absolute Nucleated RBC Nucleated RBC % (auto) Sodium Potassium Chloride Carbon Dioxide Anion Gap BUN Creatinine Estim Creat Clear Calc Estimated GFR POC Glucose 323 H Fasting Glucose Calcium Random Vancomycin Preliminary micro results at discharge 04/13/23 13:56 Blood Culture - Preliminary Blood - Venous No growth after 48 hours. 04/13/23 13:32 Blood Culture - Preliminary Blood - Venous No growth after 48 hours. Discharge Plan Discharge Anticipated Discharge Date/Time: 04/17/23 09:20 Patient Disposition: Xfer SNF Discharge Diagnosis: aspiration Referrals: [facility] [Outside] - 1 Day Lamonte Jenkins DO [Primary Care Provider] - 1 Week Discharge Medications: Continued lactulose 10 gram/15 mL solution 30 ml PO DAILY Eliquis 5 mg Tablet 5 mg PO BID Qty: 60 0RF amiodarone 200 mg tablet 200 mg G-tube DAILY Rx Instructions: Take amiodarone 400 mg (2 tablets) twice daily through 03/18 Then take amiodarone 200 mg 1 tablet daily starting 03/19 amoxicillin-pot clavulanate 875-125 mg Tablet 1 tab PO BID Rx Instructions: x 10 days, finish 04/18/23 insulin glargine [Lantus Solostar U-100 Insulin] 100 unit/mL (3 mL) Insulin Pen 20 unit SUBCUT BEDTIME sennosides [senna] 8.6 mg Tablet 8.6 mg PO DAILY PRN (Reason: Constipation) nicotine 7 mg/24 hr Patch 24 Hour 1 patch TRANSDERMAL Q24H metoprolol tartrate 25 mg tablet 12.5 mg PO BID Protocol: Hold for SBP/HR < HOLD for SBP < : 90 HOLD for HR < : 60 atorvastatin 80 mg tablet 80 mg feeding tube BEDTIME Qty: 30 0RF levothyroxine 75 mcg tablet 75 mcg feeding tube DAILY@0600 Qty: 30 0RF ferrous sulfate 325 mg (65 mg iron) Tablet 325 mg feeding tube DAILY@1700 Qty: 20 0RF Prilosec 10 mg susp,delayed release for recon 20 mg feeding tube BID Qty: 30 0RF metformin 500 mg tablet 500 mg feeding tube BID Qty: 60 0RF Discontinued caspofungin [Cancidas] 50 mg Recon Soln 50 mg IV Q24H Qty: 10 0RF Rx Instructions: x 9 days, finish 04/17/23 Discharge Orders: Discharge Order (Routine); Ordered 04/17/23 Ordered By: Ezra Ward Diet: tube feeds Activity on Discharge: As tolerated Stand Alone Forms: Patient Portal Discharge page Care Plan Goals: avoid aspiration Health Concerns: abd wounds, dysphagia Plan of Treatment: compelte augmentin course, aspiration precations, local wound care with silver algniat epacking and dsd, follow up surgery Assessment: see above
--- NOTE | 2023-04-16 10:24 | MHC.CM.PN ---
Addendum entered by Odalis Ybarra RN 04/16/23 15:56: UPDATE - DC CANCELLED, PT NOT MEDICALLY CLEARED AT THIS TIME. [facility] AND HCP/FATHER UPDATED. CM WILL CONTINUE TO FOLLOW. Original Note: DP: PT MEDICALLY CLEARED FOR DC. PLAN TO RETURN TO [facility] VIA BLS AT 1PM. FACILITY AWARE, DC SUMMARY SENT AND NURSE TO NURSE COMPLETED. HCP/FATHER AWARE.
[2023-04-16 11:22] LABS: Glucose, Whole Blood 321 mg/dL (60-115)
--- NOTE | 2023-04-16 15:41 | P.PNIM_ITS ---
Subjective Subjective Date of Service: 04/16/23 Interval History: epistaxis on way out of building, diaphoretic, tachypneic Physical Exam 2 Vital Signs: Vital Signs: Last Vital Signs Temp 97.0 F 04/16/23 07:55 Pulse 65 04/16/23 07:55 Resp 18 04/16/23 07:55 BP 132/74 04/16/23 07:55 Pulse Ox 100 04/16/23 07:55 O2 Del Method Nasal Cannula 04/16/23 07:55 O2 Flow Rate 2 04/16/23 07:55 Oxygen Flow Rate 3 04/13/23 13:00 BMI result Body Mass Index 22.3 diaphoretic, tachypneic, accessory muscles used Objective Data Labs 04/16/23 05:48 04/16/23 05:48 Labs: Laboratory Results - last 24 hr 04/15/23 04/15/23 04/15/23 16:08 18:03 20:36 MCV MCH MCHC RDW Plt Count MPV Absolute Nucleated RBC Nucleated RBC % (auto) Anion Gap Estim Creat Clear Calc Estimated GFR POC Glucose 338 H 349 H Fasting Glucose Calcium Random Vancomycin 13.6 L 04/15/23 04/16/23 04/16/23 22:05 05:48 07:17 MCV 83.5 MCH 26.1 L MCHC 31.2 RDW 15.1 Plt Count 278 MPV 10.5 Absolute Nucleated RBC 0.000 Nucleated RBC % (auto) 0.0 Anion Gap 13 Estim Creat Clear Calc 97.6 Estimated GFR > 60 POC Glucose 309 H 323 H Fasting Glucose 347 H Calcium 8.8 Random Vancomycin 04/16/23 11:18 MCV MCH MCHC RDW Plt Count MPV Absolute Nucleated RBC Nucleated RBC % (auto) Anion Gap Estim Creat Clear Calc Estimated GFR POC Glucose 321 H Fasting Glucose Calcium Random Vancomycin Microbiology Microbiology Results: Microbiology 04/13/23 13:56 Blood Culture - Preliminary Blood - Venous No growth after 48 hours. 04/13/23 13:32 Blood Culture - Preliminary Blood - Venous No growth after 48 hours. Assessment and Plan (1) Aspiration pneumonia of both lower lobes: Status: Acute (2) Pressure injury of sacral region, stage 2: Status: Acute (3) Pneumonia: Status: Acute Plan 62-year-old male with history of coronary artery disease, history of TIA, paroxysmal atrial fibrillation, hypertension paranoid schizophrenia, hypothyroidism, hyperlipidemia, unspecified dementia, insulin-dependent type 2 diabetes, COPD presented with fever and acute hypoxemic respiratory failure. acute aspiration pneumonia with acute hypoxemic respiratory failure and sepsis CXR shows bilateral lower lobe pneumonia with concern for aspiration Continue IV vancomycin and Zosyn (initiated 04/13) supplemental O2 to maintain oximetry greater than 92%, wean down as tolerated initally improved, planned for discharge, but had epistaxis on way out of hospital followed by diaphoresis and tachypnea, suspect aspirated on epistaxis monitor dysphagia tube feeds hypernatremia resolved Abdominal wound drainage recent laparoscopy General surgery appreciated, does not appear infected stage II decubitus ulcer sacrum no evidence of infection wound RN consult paroxysmal atrial fibrillation-rate controlled continue Eliquis for anticoagulation continue amiodarone, metoprolol Fungemia completed 21 day course caspofungin 04/14 hypertension blood pressure reasonably controlled continue metoprolol hypothyroidism continue levothyroxine insulin-dependent type 2 diabetes insulin hyperlipidemia continue statin DVT prophylaxis on Eliquis DNR/DNI reason for continued hospitalization:hypoxia, monitor fevers, cultures Time Spent With Patient Time: Total time managing care of this patient today ____ minutes. Quality Stroke Does the patient have a stroke diagnosis?: No VTE Prior VTE?: No VTE Risk Level:: Medical - moderate - high VTE Device Contraindication: Treatment Not Indicated VTE Drug Contraindication: N/A - Med Ordered
[2023-04-16 15:57] VITALS: BP 116/62; PULSE 77; RESP 16; TEMP 35.1; O2SAT 96
[2023-04-16 16:03] VITALS: TEMP 35.8
[2023-04-16 16:04] LABS: Glucose, Whole Blood 184 mg/dL (60-115)
[2023-04-16] MEDS: Amoxicillin/Potassium Clav 875 MG TABLET G-TUBE (18:43)
--- NOTE | 2023-04-16 18:50 | PC.NURSE ---
IV Vancomycin not to be given per Dr. Ward
[2023-04-16 19:25] VITALS: BP 115/78; PULSE 65; RESP 16; TEMP 36.2; O2SAT 98
[2023-04-16 20:17] LABS: Glucose, Whole Blood 247 mg/dL (60-115)
[2023-04-16] MEDS: Insulin Glargine,Hum.rec.anlog 100 UNIT/ML 10 ML VIAL 15 UNIT SUBCUT (21:18)
[2023-04-16] MEDS: Atorvastatin Calcium 80 MG TABLET G-TUBE (21:19)
--- NOTE | 2023-04-16 21:43 | PC.NURSE ---
Carolyn held per dr. Retana patient had a few episodes of nose bleed today
--- NOTE | 2023-04-16 21:47 | PC.NURSE ---
Patient was discharged today but developed epistaxis on the way out of the building,returned to his room,cold wet compress applied to right nares where pt was bleeding from,patient was seen by Dr. Andersen.oxygen cannula was changed to oxy mask,patient tolerating it well,no further episodes of bleeding this shift,romaine held tonight.
[2023-04-17 03:20] VITALS: BP 128/66; PULSE 78; RESP 16; TEMP 36; O2SAT 95
[2023-04-17] MEDS: Amoxicillin/Potassium Clav 875 MG TABLET G-TUBE (04:01)
[2023-04-17 05:10] LABS: Hematocrit 34.8 % (42.0-52.0); Hemoglobin 10.8 g/dl (14.0-18.0); Mean Corpuscular Hemoglobin 25.8 pg (27.0-33.0); Mean Corpuscular Volume 83.3 fL (80.0-98.0); Mean Platelet Volume 11.1 fL (9.4-12.4); Platelet Count 299 X10*3/uL (160-400); Red Blood Count 4.18 X10*6/uL (4.60-5.80); Red Cell Distribution Width 15.3 % (11.0-16.0); White Blood Count 9.8 X10*3/uL (4.8-10.8)
[2023-04-17 05:26] LABS: Anion Gap 16 (12-20); Blood Urea Nitrogen 13 mg/dL (9-16); Calcium 9.1 mg/dL (8.4-10.2); Carbon Dioxide 22 mmol/L (22-29); Chloride 108 mmol/L (96-108); Creatinine Clr Calc Pharmacy 103.1; Estimated Glomerular Filt Rate > 60; Glucose Fasting 325 mg/dL (60-99); Potassium 4.1 mmol/L (3.3-5.1); Sodium 142 mmol/L (135-145)
[2023-04-17] MEDS: Levothyroxine Sodium 75 MCG TABLET G-TUBE (05:42)
--- NOTE | 2023-04-17 06:46 | PC.NURSE ---
PATIENT WITH NO NOSEBLEEDS BETWEEN 11PM AND 7AM SHIFT. NO PAIN VSS.
[2023-04-17] MEDS: Omeprazole/Na Bicarb Oral Susp 20 MG/10 ML UD Cup G-TUBE (06:55)
[2023-04-17 07:13] LABS: Glucose, Whole Blood 323 mg/dL (60-115)
[2023-04-17] MEDS: Insulin Lispro 100 UNIT/ML 3 ML VIAL SUBCUT ×2 (08:23→11:53)
[2023-04-17] MEDS: Lactulose 20 GM/30 ML SOLUTION G-TUBE (08:24)
[2023-04-17] MEDS: Metoprolol Tartrate 12.5 MG HALFTAB G-TUBE (08:24)
[2023-04-17] MEDS: Nicotine 7 MG PATCH.TD24 TRANSDERMA (08:24)
[2023-04-17] MEDS: Ferrous Sulfate 300 MG/5 ML LIQUID G-TUBE (08:24)
[2023-04-17] MEDS: Amiodarone HCL 200 MG TABLET G-TUBE (08:24)
[2023-04-17] MEDS: Apixaban 5 MG TABLET G-TUBE (08:24)
--- NOTE | 2023-04-17 09:39 | MHC.CM.PN ---
JEANNIE DIEGO UPDATED WITH PLAN FOR AMBULANCE TRANSPORT ARRANGED TODAY TIME FOR TRANSPORT IS 1230 FROM [facility] [place]. [place] YOU OF PLAN
--- NOTE | 2023-04-17 10:24 | MHC.CM.PN ---
DISCHARGE UPDATE AND IMM DELIVERED VIA TELEPHONE MESSAGE TO HCP/FATHER.
[2023-04-17 10:42] VITALS: BP 117/68; PULSE 67; RESP 20; TEMP 36.3; O2SAT 97
[2023-04-17 11:01] LABS: Glucose, Whole Blood 303 mg/dL (60-115)
== END 2023-04-17 13:41 | disposition skilled nursing facility (03) | DRG 871 ==
LOC: HO.ED 15:57 → HO.EDOVER 16:40 → HO.S3 21:14
PROVIDERS: Physician Assistant Medical; Student in an Organized Health Care Education/Training Program; Admitting Provider Physician Assistant; Emergency Provider Emergency Medicine; PCP Hospitalist; Visit Provider Internal Medicine
DX: A41.9 Sepsis, unspecified organism (principal); J69.0 Pneumonitis due to inhalation of food and vomit; J96.01 Acute respiratory failure with hypoxia; F20.0 Paranoid schizophrenia; T81.31XA Disruption of external operation (surgical) wound, not elsewhere classified, initial encounter; E87.0 Hyperosmolality and hypernatremia; B49 Unspecified mycosis; F03.90 Unspecified dementia, unspecified severity, without behavioral disturbance, psychotic disturbance, mood disturbance, and anxiety; I25.10 Atherosclerotic heart disease of native coronary artery without angina pectoris; L89.152 Pressure ulcer of sacral region, stage 2; I48.0 Paroxysmal atrial fibrillation; E78.5 Hyperlipidemia, unspecified; Z66 Do not resuscitate; E03.9 Hypothyroidism, unspecified; E11.65 Type 2 diabetes mellitus with hyperglycemia; R13.10 Dysphagia, unspecified; Y83.8 Other surgical procedures as the cause of abnormal reaction of the patient, or of later complication, without mention of misadventure at the time of the procedure; R04.0 Epistaxis; Z20.822 Contact with and (suspected) exposure to COVID-19; Z93.3 Colostomy status; Z79.01 Long term (current) use of anticoagulants; Z79.4 Long term (current) use of insulin; Z79.84 Long term (current) use of oral hypoglycemic drugs; Z79.890 Hormone replacement therapy; Z79.899 Other long term (current) drug therapy
CPT/HCPCS: 36415; 71045; 76705; 80048; 80053; 80076; 80202; 81001; 82947; 83605; 83735; 85025; 85027; 85652; 86140; 87040; 87086; 87502; 87635; 93971; 99285; C1758; J0637; J0696; J2543; J3370; J3371

== ENCOUNTER → 2023-04-13 16:27 | Outpatient (BNV) | payer MEDICARE, MEDICAID, SELFPAY | PROVIDERS: Admitting Provider Physician Assistant; Emergency Provider Emergency Medicine; PCP Hospitalist; Visit Provider Physician Assistant Surgical | DX: L24.A9 Irritant contact dermatitis due friction or contact with other specified body fluids (principal) | CPT/HCPCS: 99024 ==

== ENCOUNTER → 2023-04-13 16:27 | Outpatient (BNV) | payer MEDICARE, MEDICAID, SELFPAY | PROVIDERS: Admitting Provider Physician Assistant; Emergency Provider Emergency Medicine; PCP Hospitalist; Visit Provider Physician Assistant | DX: J69.0 Pneumonitis due to inhalation of food and vomit (principal); L89.152 Pressure ulcer of sacral region, stage 2 | CPT/HCPCS: 99223; 99233; 99239 ==

== ENCOUNTER 2023-04-19 22:00 | Emergency (ER) | payer MEDICARE, MEDICAID, SELFPAY ==
--- NOTE | ~2023-04-19 | CT_ITS ---
EXAMINATION: HEAD CT WITHOUT CONTRAST CERVICAL SPINE CT WITHOUT CONTRAST CLINICAL INFORMATION: Fall. On the Eliquis COMPARISON: 03/20/2023 TECHNIQUE: Contiguous axial imaging of the head was performed without the administration of IV contrast. Examination was . Twice due to patient motion. Axial multidetector volumetric images were also performed through the cervical spine without intravenous contrast. Multiplanar reconstructed images in coronal and sagittal orientations were submitted. This CT examination was performed using dose optimization techniques as appropriate, variously including the following: *Automated exposure control *Adjustment of mA and/or kV according to patient size (this includes techniques or standardized protocols for targeted exams where dose is matched to indication/reason for exam; i.e. extremities or head) *Use of iterative reconstruction technique DOSE: 922 mGy-cm FINDINGS: HEAD: Since the prior study from one month prior, there has been development of thin, intermediate attenuation extra-axial fluid collections over both cerebral convexities, left greater than right, most consistent with subacute to chronic subdural hematomas. The left measures up to 1 cm in thickness and the right measures up to 0.8 cm in thickness. No acute hyperdense blood products are identified. The extra-axial collection is mild mass effect upon the bilateral cerebellar hemispheres without midline shift. No herniation. No evidence of acute territorial infarction. [place] to white matter differentiation is well preserved. Focal encephalomalacia is present at the inferior frontal lobes bilaterally and at the left occipital lobe posteriorly. The ventricles are normal in size and configuration. A few foci of hypoattenuation in the subcortical and periventricular white matter are most consistent with chronic microangiopathic changes. Calcific atherosclerosis is present within the cavernous segments of the internal carotid arteries. The soft tissues and osseous structures are normal. The sinuses and mastoid air cells are clear. CERVICAL SPINE: Vertebral body heights are normal. No fractures of the vertebral bodies or posterior elements. Mild left convex cervical scoliotic curvature. Vertebral alignment is otherwise normal. No subluxation. Degenerative changes are present at the craniocervical and atlantoaxial articulations, though normal alignment is maintained. Enlargement anterior osteophytes are present throughout the cervical spine and upper thoracic spine with mild loss of vertebral disc height. There is osseous fusion of the facet joints at C2-C3. Mild facet arthropathy on the right at C3-C4. Central canal and neural foramina appear patent without appreciable stenoses. No significant paravertebral soft tissue swelling. Atherosclerotic calcifications are present in the carotid arteries. Imaged portions of the lung apices are clear. CT/CT cervical spine wo IV con IMPRESSION: 1. Interval development of bilateral subacute to chronic subdural hematomas with mild mass effect upon the cerebellar hemispheres. No midline shift or herniation. 2. No acute fracture or malalignment in the cervical spine. This critical result was discussed by telephone with TAMI Siddiqi on 04/20/2023 at 12:48 AM.
[2023-04-19 22:06] VITALS: BP 141/68; BP 168/71; PULSE 100; PULSE 83; RESP 18; TEMP 36.9; O2SAT 97; BMI 28.2
--- NOTE | 2023-04-19 22:22 | ECG_ITS ---
Test Reason : FALL Blood Pressure : / mmHG Vent. Rate : 111 BPM Atrial Rate : 111 BPM P-R Int : 198 ms QRS Dur : 068 ms QT Int : 332 ms P-R-T Axes : 082 086 068 degrees QTc Int : 451 ms Poor data quality, interpretation may be adversely affected Sinus tachycardia Otherwise normal ECG When compared with ECG of 04-APR-2023 09:17, Vent. rate has increased BY 38 BPM Non-specific change in ST segment in Inferior leads Nonspecific T wave abnormality, improved in Inferior leads T wave inversion no longer evident in Anterior leads Referred By: Generic ED Physician Electronically Signed By:RICKI YUEN
[2023-04-19 22:28] LABS: Glucose, Whole Blood 238 mg/dL (60-115)
[2023-04-19 22:35] VITALS: PULSE 100; RESP 18; TEMP 36.9; O2SAT 97
--- NOTE | 2023-04-19 22:56 | ED_ITS ---
HPI - General Adult General Chief complaint: Fall Stated complaint: unwit fall, g-tube dislodged Time Seen by Provider: 04/19/23 22:56 Source: patient, EMS and RN notes reviewed Mode of arrival: EMS History of Present Illness HPI narrative: Patient is a 62-year-old male with history of T2DM, dementia, dysphagia, COPD, dyskinesia, anemia, hypothyroidism, paranoid schizophrenia, CAD status post CABG, history of TIA presenting to the ED from [facility] after on with witnessed fall from bed. States that he does not remember events leading to his fall. He denies any current complaints. He was recently discharged after being admitted for aspiration pneumonia. Facility also concerned for possible dislodgement of G-tube. Patient denies any abdominal pain. MD complaint: unwitnessed fall Onset (ago): hour(s) Associated symptoms: denies other symptoms Treatments prior to arrival: none Related Data Home Medications Medication Instructions Recorded Confirmed lactulose 10 gram/15 mL oral 30 ml PO DAILY 12/13/21 04/13/23 solution nicotine 7 mg/24 hr daily 1 patch transdermal Q24H Smoking 12/27/22 04/13/23 transdermal patch Cessation sennosides 8.6 mg tablet (senna) 8.6 mg PO DAILY PRN Constipation 12/27/22 04/13/23 metoprolol tartrate 25 mg tablet 12.5 mg PO BID 02/20/23 04/13/23 amiodarone 200 mg tablet 200 mg G-tube DAILY 03/20/23 04/13/23 amoxicillin 875 mg-potassium 1 tab PO BID 04/13/23 04/13/23 clavulanate 125 mg tablet insulin glargine 100 unit/mL (3 20 unit subcut BEDTIME 04/13/23 04/13/23 mL) subcutaneous pen (Lantus Solostar U-100 Insulin) Previous Rx's Medication Instructions Recorded apixaban 5 mg tablet (Eliquis) 5 mg PO BID #60 tabs 12/16/21 atorvastatin 80 mg tablet 80 mg feeding tube BEDTIME #30 tabs 03/17/23 ferrous sulfate 325 mg (65 mg 325 mg feeding tube DAILY@1700 #20 03/17/23 iron) tablet tabs levothyroxine 75 mcg tablet 75 mcg feeding tube DAILY@0600 #30 03/17/23 tabs metformin 500 mg tablet 500 mg feeding tube BID #60 tabs 03/17/23 omeprazole magnesium 10 mg oral 20 mg feeding tube BID #30 ea 03/17/23 suspension,delayed release (Prilosec) Allergies Allergy/AdvReac Type Severity Reaction Status Date / Time No Known Allergies Allergy Verified 04/13/23 23:45 [No Known Allergies*] Review of Systems Review of Systems: As per HPI. 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 Paranoid schizophrenia Hyperlipidemia Hypothyroidism Anemia Encephalopathy Drug induced subacute dyskinesia Cognitive impairment Exotropia, alternating, with A pattern Hypermetropia of both eyes Dysphagia Boutonniere deformity of finger COVID-19 Type 2 diabetes mellitus COPD (chronic obstructive pulmonary disease) Dementia Surgical History Presence of aortocoronary bypass graft Social History Social History Household Members: None Household Members Other:: [facility] Housing: [facility] Other:: [facility] Do you presently have visiting nurse or other home services: No Unable to assess alcohol history related to: Unable to respond Alcohol intake: former Patient Tobacco Use Status: Former Tobacco user Tobacco use type: Cigarette Years Smoked: SURAJ Smoked in Last 30 Days: No Use of substances other than those prescribed or required for medical reasons: No Advance Directives: Yes Advance Directives on File: Yes Advance Directives Date on File: 12/14/21 service: No Current occupational status: disabled Physical Exam ED Vital Signs: Vital Signs - 24 hr 04/19/23 22:06 04/19/23 22:35 04/19/23 23:57 Temperature 98.4 F 98.4 F Pulse Rate 100 100 104 H Respiratory Rate 18 18 31 H Blood Pressure 141/68 H 147/78 H Pulse Oximetry 97 97 97 Oxygen Delivery Method Room Air Room Air BMI result Body Mass Index 28.2 Vital signs have been reviewed and appear to be correct. Blood pressure normal. Heart rate normal. Respiratory rate normal. Temperature normal. Oxygen saturation normal. Const General: cooperative, no acute distress, alert and awake Nutritional Appearance: cachectic Orientation/consciousness: oriented to person Limitations: altered mental status and physical limitations [facility] Head: Yes No palpable skull fracture present, Yes atraumatic, No Waterman's sign, No raccoon eyes and No periorbital ecchymosis Ears: hearing grossly normal bilaterally, TM's normal bilaterally and EAC's normal General nose exam: Normal external nose present, Normal nasal mucous membranes and turbinates present and No nasal discharge present Face and sinus: Yes normal facial exam and Yes sinuses nontender Mouth: oropharynx normal Eyes General: appearance normal, both eyes and all related structures Pupils: Equal, round and reactive pupils present EOM: EOMs intact bilaterally Neck Neck: Yes normal visual inspection Chest Chest palpation & inspection: normal inspection of the chest and normal palpation of entire chest wall Resp Effort & Inspection: normal respiratory effort Auscultation: diminished lung sounds diffuse Cardio Rate: regular rate Rhythm: regular rhythm Heart sounds: S1 normal heart sound present and S2 normal heart sound present GI Other: ostomy present Inspection: Yes G-tube present (mild surrounding erythema, no discharge, flushes easily) and Yes other (healing wound to mid abdomen) Palpation (GI): Soft to palpation and nontender Other: indwelling urinary catheter in place on arrival Skin General skin exam: elasticity normal and turgor normal Neuro General: oriented to person Cranial nerves: Yes Equal, round and reactive pupils present Extrem General: Yes no pedal edema and Yes no calf tenderness Psych Attitude: cooperative Medical Decision Making Medical Decision Making MDM Narrative: Patient is a 62-year-old male with history of T2DM, dementia, dysphagia, COPD, dyskinesia, anemia, hypothyroidism, paranoid schizophrenia, CAD status post CABG, history of TIA presenting to the ED from [facility] after on with witnessed fall from bed. On exam patient is awake, alert, A+Ox1, VS WNL, afebrile, nontoxic appearing in no acute distress, physical exam findings as above. Given reported symptoms and physical exam findings, initial differential includes ICH, skull fracture, cervical fracture, dislodged G tube. Labs notable for no leukocytosis, mild anemia improved from recent visit, mildly elevated glucose. UA positive for 2+ leukocytes, 21-50 WBCs, however no bacteria, feel this likely represents colonization and not acute infection. 00:55 Received call from radiologist, Dr. Gallagher regarding results of CT head which revealed subacute to chronic subdural hematomas with mild mass effect on the cerebellar hemispheres without midline shift or herniation, new since CT head one month prior. No acute c-spine fracture. Call placed to [facility] to discuss transfer. 01:[address] Scales from trauma regarding transfer. He will accept patient in the ED as a trauma consult. Elevator Technician coordinating transport. Will upload images. Differential Diagnosis Differential Diagnoses: The differential diagnosis associated with the presentat ion includes As per [facility]. Lab Data [facility] Lab Attestation statement: I reviewed the patient's lab results. As per [facility] Labs: Lab Results 04/19/23 04/19/23 Range/Units 22:19 23:33 POC Glucose 238 H (60-115) mg/dL Urine Color [place] A Urine Appearance Cloudy Urine pH 6.5 (5.0-9.0) Ur Specific [place] 1.020 (1.005-1.025) Urine Protein 30 (1+) H (Neg-Trace) mg/dL Urine Glucose (UA) Negative (Negative) mg/dL Urine Ketones Negative (Negative) mg/dL Urine Blood Large (3+) H (Negative) Urine Nitrite Negative (Negative) Ur Leukocyte Esterase Moderate (2+) H (Negative) Urine RBC >20 H (0-2) /HPF Urine WBC 21-50 H (0-5) /HPF Ur Squamous Epith Cells 0-2 (0-2) /HPF Urine Bacteria None Seen (None Seen) Hyaline Casts 6-10 (0-2) /LPF Independent Interpretation I performed an independent interpretation of an: CT Scan Interpretation: I independently reviewed the CT scans and agree with the radiologist's interpretation. Radiology Impression Discussion of test interpretation with radiology: I have reviewed the radiologist's reading. Radiologist Impression: CT/CT head/brain wo IV con IMPRESSION: 1. Interval development of bilateral subacute to chronic subdural hematomas with mild mass effect upon the cerebellar hemispheres. No midline shift or herniation. 2. No acute fracture or malalignment in the cervical spine. External Record Review External record reviewed: Inpatient record, Office record and Outpatient record Discharge Plan Discharge Clinical Impression: Bilateral subdural hematomas Patient Disposition: [facility] Transfer Details: to [facility] ED as trauma consult accepting Dr. Scales Prescriptions: No Action lactulose 10 gram/15 mL solution 30 ml PO DAILY Eliquis 5 mg Tablet 5 mg PO BID Qty: 60 0RF Hold Instructions: Resume on 04/18/23. amiodarone 200 mg tablet 200 mg G-tube DAILY Rx Instructions: Take amiodarone 400 mg (2 tablets) twice daily through 03/18 Then take amiodarone 200 mg 1 tablet daily starting 03/19 amoxicillin-pot clavulanate 875-125 mg Tablet 1 tab PO BID Rx Instructions: x 10 days, finish 04/18/23 insulin glargine [Lantus Solostar U-100 Insulin] 100 unit/mL (3 mL) Insulin Pen 20 unit SUBCUT BEDTIME sennosides [senna] 8.6 mg Tablet 8.6 mg PO DAILY PRN (Reason: Constipation) nicotine 7 mg/24 hr Patch 24 Hour 1 patch TRANSDERMAL Q24H metoprolol tartrate 25 mg tablet 12.5 mg PO BID Protocol: Hold for SBP/HR < HOLD for SBP < : 90 HOLD for HR < : 60 atorvastatin 80 mg tablet 80 mg feeding tube BEDTIME Qty: 30 0RF levothyroxine 75 mcg tablet 75 mcg feeding tube DAILY@0600 Qty: 30 0RF ferrous sulfate 325 mg (65 mg iron) Tablet 325 mg feeding tube DAILY@1700 Qty: 20 0RF Prilosec 10 mg susp,delayed release for recon 20 mg feeding tube BID Qty: 30 0RF metformin 500 mg tablet 500 mg feeding tube BID Qty: 60 0RF
--- NOTE | 2023-04-19 23:10 | PC.NURSE ---
Took over care at 11:10pm from RN Keshia, provider into assess pt with this RN at the bedside. pt awaiting CT/SCan, G-Tube intact and flushing. Will continue to monitor.
[2023-04-19 23:42] LABS: Appearance Urine Cloudy; Color Urine Orange; Glucose Urine UA Negative (Negative); Leukocyte Esterase Urine Moderate (2+) (Negative); Nitrite Urine Negative (Negative); PH 6.5 (5.0-9.0); UMIC TRIGGER UACC YES; Urine Blood Large (3+) (Negative); Urine Ketones Negative (Negative); Urine Protein 30 (1+) mg/dL (Neg-Trace)
--- NOTE | 2023-04-19 23:50 | PC.NURSE ---
pt back ct scan .
[2023-04-19 23:51] LABS: Bacteria Urine None Seen (None Seen); RBC Urine >20 /HPF (0-2); Squamous Epithelial Cell Urine 0-2 /HPF (0-2); UACC Culture Trigger YES; WBC Urine 21-50 /HPF (0-5)
[2023-04-19 23:57] VITALS: BP 147/78; PULSE 104; RESP 31; O2SAT 97
--- NOTE | 2023-04-20 01:42 | PC.NURSE ---
pt is resting in bed, no sign of distress at this time. Plan is for pt to be transferred to [facility]. Will continue to monitor.
--- NOTE | 2023-04-20 03:52 | PC.NURSE ---
Went to assess pt, pt diaphoretic , poc checked. will continue to monitor.
--- NOTE | 2023-04-20 03:56 | PC.NURSE ---
pt is responding to question appropriately. completed bed change and pt reposition for comfort.
[2023-04-20 03:57] LABS: Glucose, Whole Blood 240 mg/dL (60-115)
[2023-04-20 04:02] VITALS: BP 121/77; PULSE 106; RESP 32; TEMP 37.3; O2SAT 98
--- NOTE | 2023-04-20 04:30 | PC.NURSE ---
EMS at bedside for transport. Report given. This RN to call [facility] for nurse to nurse.
--- NOTE | 2023-04-20 04:42 | PC.NURSE ---
This RN attempting to contact [facility] for report. Per [place], RN to call back for report.
== END 2023-04-20 04:45 | disposition short-term general hospital (02) ==
PROVIDERS: Registered Nurse Emergency; Emergency Provider Emergency Medicine; PCP Hospitalist
DX: S06.5XAA Traumatic subdural hemorrhage with loss of consciousness status unknown, initial encounter (principal); R51.9 Headache, unspecified; M54.2 Cervicalgia; R00.0 Tachycardia, unspecified; X58.XXXA Exposure to other specified factors, initial encounter; Y93.9 Activity, unspecified; Y92.9 Unspecified place or not applicable; Y99.9 Unspecified external cause status; Z79.899 Other long term (current) drug therapy
CPT/HCPCS: 70450; 72125; 81001; 82947; 87086; 93005; 99285

== ENCOUNTER 2023-05-30 17:25 | Emergency (ER) | payer MEDICARE, MEDICAID, SELFPAY ==
--- NOTE | ~2023-05-30 | XR_ITS ---
EXAMINATION: XR ABDOMEN KUB CLINICAL INDICATION: G-tube placement. COMPARISON: CT dated 03/20/2023 TECHNIQUE: AP view of the abdomen. FINDINGS: Moderate to large thymus stool in the colon. Gastrostomy tube is in place with tip terminating over the central pelvis. Nondilated bowel gas pattern. Bones are osteopenic. No gross evidence of free air on this supine study. XR/XR abdomen 1V IMPRESSION: 1. Gastrostomy tube tip terminates over the central pelvis. 2. Moderate to large volume stool in the colon.
[2023-05-30 17:34] VITALS: BP 109/69; BP 110/70; PULSE 80; RESP 16; TEMP 36.6; O2SAT 95; O2SAT 98
[2023-05-30 17:38] LABS: Glucose, Whole Blood 61 mg/dL (60-115)
[2023-05-30 18:01] VITALS: BP 109/69; PULSE 79; RESP 16; TEMP 36.5; O2SAT 95
--- NOTE | 2023-05-30 19:55 | ED_ITS ---
HPI - General Adult General Chief complaint: General Medical Stated complaint: g tube problem Time Seen by Provider: 05/30/23 18:39 Source: EMS and RN notes reviewed Mode of arrival: EMS Limitations: physical limitation History of Present Illness HPI narrative: Patient is a 62-year-old male with history of T2 dm, dementia, dysphagia, COPD, dyskinesia, anemia, hypothyroidism, paranoid schizophrenia, CAD status post CABG, history of TIA presenting to the ED from [facility] with concerns regarding G tube functioning. Nurse there reported to EMS that she felt the patient's abdomen surrounding the insertion site was firm, that there was difficulty flushing the tube, and that patient had a blood glucose level of 69 at [facility]. EMS reported glucose of 90. Patient unable to report history. MD complaint: G tube dysfunction Onset (ago): hour(s) Location: abdomen Associated symptoms: denies other symptoms Treatments prior to arrival: none Related Data Home Medications Medication Instructions Recorded Confirmed lactulose 10 gram/15 mL oral 30 ml PO DAILY 12/13/21 04/13/23 solution nicotine 7 mg/24 hr daily 1 patch transdermal Q24H Smoking 12/27/22 04/13/23 transdermal patch Cessation sennosides 8.6 mg tablet (senna) 8.6 mg PO DAILY PRN Constipation 12/27/22 04/13/23 metoprolol tartrate 25 mg tablet 12.5 mg PO BID 02/20/23 04/13/23 amiodarone 200 mg tablet 200 mg G-tube DAILY 03/20/23 04/13/23 amoxicillin 875 mg-potassium 1 tab PO BID 04/13/23 04/13/23 clavulanate 125 mg tablet insulin glargine 100 unit/mL (3 20 unit subcut BEDTIME 04/13/23 04/13/23 mL) subcutaneous pen (Lantus Solostar U-100 Insulin) Previous Rx's Medication Instructions Recorded apixaban 5 mg tablet (Eliquis) 5 mg PO BID #60 tabs 12/16/21 atorvastatin 80 mg tablet 80 mg feeding tube BEDTIME #30 tabs 03/17/23 ferrous sulfate 325 mg (65 mg 325 mg feeding tube DAILY@1700 #20 03/17/23 iron) tablet tabs levothyroxine 75 mcg tablet 75 mcg feeding tube DAILY@0600 #30 03/17/23 tabs metformin 500 mg tablet 500 mg feeding tube BID #60 tabs 03/17/23 omeprazole magnesium 10 mg oral 20 mg feeding tube BID #30 ea 03/17/23 suspension,delayed release (Prilosec) Allergies Allergy/AdvReac Type Severity Reaction Status Date / Time No Known Allergies Allergy Verified 05/30/23 17:40 [No Known Allergies*] Review of Systems Review of Systems: As per HPI. 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 Paranoid schizophrenia Hyperlipidemia Hypothyroidism Anemia Encephalopathy Drug induced subacute dyskinesia Cognitive impairment Exotropia, alternating, with A pattern Hypermetropia of both eyes Dysphagia Boutonniere deformity of finger COVID-19 Type 2 diabetes mellitus COPD (chronic obstructive pulmonary disease) Dementia Surgical History Presence of aortocoronary bypass graft Social History Social History Household Members: None Household Members Other:: [facility] Housing: [facility] Housing Other:: [facility] Do you presently have visiting nurse or other home services: No Unable to assess alcohol history related to: Unable to respond Alcohol intake: former Patient Tobacco Use Status: Former Tobacco user Tobacco use type: Cigarette Years Smoked: SURAJ Smoked in Last 30 Days: No Use of substances other than those prescribed or required for medical reasons: No Advance Directives: Yes Advance Directives on File: Yes Advance Directives Date on File: 12/14/21 service: No Current occupational status: disabled Physical Exam ED Vital Signs: Vital Signs - 24 hr 05/30/23 17:34 05/30/23 18:01 Temperature 97.8 F 97.7 F Pulse Rate 80 79 Respiratory Rate 16 16 Blood Pressure 109/69 109/69 Pulse Oximetry 95 95 Oxygen Delivery Method Room Air Room Air BMI result Body Mass Index 20.0 Vital signs have been reviewed and appear to be correct. Blood pressure normal. Heart rate normal. Respiratory rate normal. Temperature normal. Oxygen saturation normal. Const General: no acute distress, alert and awake Nutritional Appearance: cachectic Limitations: altered mental status and physical limitations [facility] Mouth: moist mucous membranes abnormal (dry) Throat: Yes posterior oropharynx normal and Yes uvula midline Eyes Pupils: Equal, round and reactive pupils present Neck Neck: Yes supple Lymphatic: no lymphadenopathy noted Resp Effort & Inspection: normal respiratory effort Auscultation: clear to auscultation bilaterally Cardio Rate: regular rate Rhythm: regular rhythm Heart sounds: S1 normal heart sound present and S2 normal heart sound present GI Inspection: Yes G-tube present (small amount of dried blood surrounding tube) Palpation (GI): Soft to palpation and nontender Auscultation: normoactive bowel sounds Skin General skin exam: elasticity normal and turgor normal Neuro Cranial nerves: Yes Equal, round and reactive pupils present Medications Administered Discontinued Medications Generic Name Dose Route Start Last Admin Trade Name Freq PRN Reason Stop Dose Admin Dextrose 12.5 gm 05/30/23 20:54 05/30/23 21:05 Dextrose 50 % 25 Gm/50 Ml Syringe IVPUSH 05/30/23 20:55 12.5 gm ONCE ONE Administration Medical Decision Making Medical Decision Making [facility] Narrative: Patient is a 62-year-old male with history of T2 dm, dementia, dysphagia, COPD, dyskinesia, anemia, hypothyroidism, paranoid schizophrenia, CAD status post CABG, history of TIA presenting to the ED from [facility] with concerns regarding G tube functioning. On exam patient is awake, alert, VS WNL, afebrile, physical exam findings as above. Given reported symptoms and physical exam findings, initial differential includes G tube dysfunction, hypoglycemia. Labs notable for POC glucose of 61 which improved to 98 after dextrose. X-ray notable for G tube in place. My interpretation is in agreement with the radiologist's interpretation. Nurse able to flush tube easily in the ED. Dr. Hopson assessed patient as well and agrees tube appears patent. Patient stable for discharge back to [facility], advised staff to follow up with GI for further evaluation. Differential Diagnosis Differential Diagnoses: The differential diagnosis associated with the presentation includes As per [facility]. Lab Data [facility] Lab Attestation statement: I reviewed the patient's lab results. As per [facility] Labs: Lab Results 05/30/23 05/30/23 05/30/23 Range/Units 17:34 20:50 22:00 POC Glucose 61 60 98 (60-115) mg/dL Independent Interpretation I performed an independent interpretation of an: Plain X-Ray Interpretation: G tube in place Radiology Impression Discussion of test interpretation with radiology: I have reviewed the radiologist's reading. Radiologist Impression: XR/XR abdomen 1V IMPRESSION: 1. Gastrostomy tube tip terminates over the central pelvis. 2. Moderate to large volume stool in the colon. External Record Review External record reviewed: Inpatient record, Office record and Outpatient record Discharge Plan Discharge Clinical Impression: Gastrostomy tube dysfunction Patient Disposition: Xfer [facility] Transfer Details: Patient to return to [facility] Instructions: How to Use and Care for Your PEG Tube (ED) Additional Instructions: Alejo was evaluated in the emergency department today for G tube concerns. His tube was able to be flushed easily in the emergency department. His evaluation does not show evidence of conditions requiring emergent treatment at this time. Please follow up with his peoplesoft developer for further evaluation. Prescriptions: No Action lactulose 10 gram/15 mL solution 30 ml PO DAILY Eliquis 5 mg Tablet 5 mg PO BID Qty: 60 0RF Hold Instructions: Resume on 04/18/23. amiodarone 200 mg tablet 200 mg G-tube DAILY Rx Instructions: Take amiodarone 400 mg (2 tablets) twice daily through 03/18 Then take amiodarone 200 mg 1 tablet daily starting 03/19 amoxicillin-pot clavulanate 875-125 mg Tablet 1 tab PO BID Rx Instructions: x 10 days, finish 04/18/23 insulin glargine [Lantus Solostar U-100 Insulin] 100 unit/mL (3 mL) Insulin Pen 20 unit SUBCUT BEDTIME sennosides [senna] 8.6 mg Tablet 8.6 mg PO DAILY PRN (Reason: Constipation) nicotine 7 mg/24 hr Patch 24 Hour 1 patch TRANSDERMAL Q24H metoprolol tartrate 25 mg tablet 12.5 mg PO BID Protocol: Hold for SBP/HR < HOLD for SBP < : 90 HOLD for HR < : 60 atorvastatin 80 mg tablet 80 mg feeding tube BEDTIME Qty: 30 0RF levothyroxine 75 mcg tablet 75 mcg feeding tube DAILY@0600 Qty: 30 0RF ferrous sulfate 325 mg (65 mg iron) Tablet 325 mg feeding tube DAILY@1700 Qty: 20 0RF Prilosec 10 mg susp,delayed release for recon 20 mg feeding tube BID Qty: 30 0RF metformin 500 mg tablet 500 mg feeding tube BID Qty: 60 0RF Referrals: [facility] [place] Gastroenterology Services [Provider Group]
--- NOTE | 2023-05-30 20:57 | PC.NURSE ---
poc 60; Odalis HERR aware.
[2023-05-30] MEDS: Dextrose 50 % 25 GM/50 ML SYRINGE IVPUSH (21:05)
[2023-05-30 21:08] LABS: Glucose, Whole Blood 60 mg/dL (60-115)
[2023-05-30 22:03] LABS: Glucose, Whole Blood 98 mg/dL (60-115)
--- NOTE | 2023-05-30 22:21 | PC.NURSE ---
reheck poc 98.
--- NOTE | 2023-05-30 23:14 | PC.NURSE ---
g-tube flushed per Odalis M[employer] B[employer]CH TRIMMER request; flush easily; nonadherent dressing applied around gtube.
[2023-05-30 23:18] VITALS: BP 115/69; PULSE 83; RESP 16; TEMP 36.8; O2SAT 97
--- NOTE | 2023-05-30 23:19 | MHC.EDTECH ---
500 ml urine emptied from [facility]inn
--- NOTE | 2023-05-31 | MHC.EDTECH ---
call out to jessica at [phone] to book transport for pt back SNF, estimated eta given was [id number]
--- NOTE | 2023-05-31 02:15 | PC.NURSE ---
report called to [facility] rn. pt d/c with jessica.
== END 2023-05-31 02:16 ==
PROVIDERS: Emergency Provider Student in an Organized Health Care Education/Training Program; PCP Hospitalist
DX: K94.29 Other complications of gastrostomy (principal); E11.9 Type 2 diabetes mellitus without complications; I10 Essential (primary) hypertension; E78.5 Hyperlipidemia, unspecified; I48.91 Unspecified atrial fibrillation; Z87.891 Personal history of nicotine dependence; Z79.4 Long term (current) use of insulin; Z79.01 Long term (current) use of anticoagulants; Z79.899 Other long term (current) drug therapy
CPT/HCPCS: 74018; 82947; 96374; 99284

== ENCOUNTER 2023-06-05 01:13 | Emergency (ER) | payer MEDICARE, MEDICAID, SELFPAY ==
[2023-06-05] VITALS (7 sets, daily range): BP systolic 101–126; BP diastolic 61–66; PULSE 77–89; RESP 13–20; TEMP 36.3–36.9; O2SAT 99–100; BMI 25.0
--- NOTE | ~2023-06-05 | XR_ITS ---
EXAMINATION: XR ABDOMEN KUB CLINICAL INDICATION: Placement of G-tube. COMPARISON: 05/30/2023 TECHNIQUE: AP view of the abdomen. FINDINGS: There has been injection of 30 mL Gastrografin and 30 mL of water into a G-tube by the provider. A portable view of the abdomen was obtained following injection demonstrating opacification of the small bowel. No extraluminal contrast extravasation is suggested on the basis of these static films. Severe constipation. XR/XR KUB IMPRESSION: As above.
--- NOTE | 2023-06-05 06:51 | ED_ITS ---
HPI - General Adult General Chief complaint: General Medical Stated complaint: G-Tube pulled out Time Seen by Provider: 06/05/23 06:22 Source: RN notes reviewed Mode of arrival: EMS Limitations: physical limitation History of Present Illness HPI narrative: Patient is a 62-year-old male with history of T2 dm, dementia, dysphagia, COPD, dyskinesia, anemia, hypothyroidism, paranoid schizophrenia, CAD status post CAB G, history of TIA presenting [facility] ED [facility] for [facility] G tube. Staff report that patient pulled at his G tube and they are concerned it is dislodged. Patient denies any pain to the area. No report of vomiting or difficulty flushing tube. MD complaint: G tube concern Onset (ago): hour(s) Location: abdomen Treatments prior to arrival: none Related Data Home Medications Medication Instructions Recorded Confirmed lactulose 10 gram/15 mL oral 30 ml PO DAILY 12/13/21 04/13/23 solution nicotine 7 mg/24 hr daily 1 patch transdermal Q24H Smoking 12/27/22 04/13/23 transdermal patch Cessation sennosides 8.6 mg tablet (senna) 8.6 mg PO DAILY PRN Constipation 12/27/22 04/13/23 metoprolol tartrate 25 mg tablet 12.5 mg PO BID 02/20/23 04/13/23 amiodarone 200 mg tablet 200 mg G-tube DAILY 03/20/23 04/13/23 amoxicillin 875 mg-potassium 1 tab PO BID 04/13/23 04/13/23 clavulanate 125 mg tablet insulin glargine 100 unit/mL (3 20 unit subcut BEDTIME 04/13/23 04/13/23 mL) subcutaneous pen (Lantus Solostar U-100 Insulin) Previous Rx's Medication Instructions Recorded apixaban 5 mg tablet (Eliquis) 5 mg PO BID #60 tabs 12/16/21 atorvastatin 80 mg tablet 80 mg feeding tube BEDTIME #30 tabs 03/17/23 ferrous sulfate 325 mg (65 mg 325 mg feeding tube DAILY@1700 #20 03/17/23 iron) tablet tabs levothyroxine 75 mcg tablet 75 mcg feeding tube DAILY@0600 #30 03/17/23 tabs metformin 500 mg tablet 500 mg feeding tube BID #60 tabs 03/17/23 omeprazole magnesium 10 mg oral 20 mg feeding tube BID #30 ea 03/17/23 suspension,delayed release (Prilosec) Allergies Allergy/AdvReac Type Severity Reaction Status Date / Time No Known Allergies Allergy Verified 06/05/23 01:28 [No Known Allergies*] Review of Systems Review of Systems: As per HPI Yes all other systems are reviewed and are negative [facility] Past Medical History Medical History Fungemia Candidal urinary tract infection Paroxysmal atrial fibrillation Afib CAD (coronary artery disease) Personal history of transient ischemic attack (TIA), and cerebral infarction without residual deficits Altered mental status Atherosclerotic heart disease of [place] coronary artery without angina pectoris Essential (primary) hypertension Amblyopia, 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 Paranoid schizophrenia Hyperlipidemia Hypothyroidism Anemia Encephalopathy Drug induced subacute dyskinesia Cognitive impairment Exotropia, alternating, with A pattern Hypermetropia of both eyes Dysphagia Boutonniere deformity of finger COVID-19 Type 2 diabetes mellitus COPD (chronic obstructive pulmonary disease) Dementia Surgical History Presence of aortocoronary bypass graft Social History Social History Household Members: None Household Members Other:: [facility] Housing: [facility] Other:: [facility] Do you presently have visiting nurse or other home services: No Unable to assess alcohol history related to: Unable to respond Alcohol intake: former Patient Tobacco Use Status: Former Tobacco user Tobacco use type: Cigarette Years Smoked: SURAJ Advance Directives: Yes Advance Directives on File: Yes Advance Directives Date on File: 12/14/21 service: No Current occupational status: disabled Physical Exam ED Vital Signs: Vital Signs - 24 hr 06/05/23 01:23 06/05/23 02:22 06/05/23 05:41 Temperature 98.4 F 97.4 F 98.0 F Pulse Rate 77 77 84 Respiratory Rate 20 17 17 Blood Pressure 105/66 109/65 101/65 Pulse Oximetry 99 99 100 Oxygen Delivery Method Room Air Nasal Cannula Room Air Oxygen Flow Rate 2 06/05/23 07:35 Temperature 97.6 F Pulse Rate 77 Respiratory Rate 16 Blood Pressure 105/65 Pulse Oximetry 100 Oxygen Delivery Method Nasal Cannula Oxygen Flow Rate 2 BMI result Body Mass Index 25.0 Vital signs have been reviewed and appear to be correct. Blood pressure normal. Heart rate normal. Respiratory rate normal. Temperature normal. Oxygen saturation normal. Const General: no acute distress, alert and awake Nutritional Appearance: thin Limitations: altered mental status and physical limitations HENMT Head: Yes atraumatic Ears: hearing grossly normal bilaterally General nose exam: Normal external nose present Mouth: Normal oral and palatal mucosa present Throat: Yes posterior oropharynx normal Eyes Pupils: Equal, round and reactive pupils present Neck Neck: Yes supple Resp Effort & Inspection: normal respiratory effort Auscultation: clear to auscultation bilaterally Cardio Rate: regular rate Rhythm: regular rhythm Heart sounds: S1 normal heart sound present and S2 normal heart sound present GI Inspection: Yes G-tube present (no surrounding erythema) Palpation (GI): Soft to palpation and nontender Skin General skin exam: elasticity normal and turgor normal Neuro Cranial nerves: Yes Equal, round and reactive pupils present Medical Decision Making Medical Decision Making [facility] Narrative: Patient is a 62-year-old male with history of T2 dm, dementia, dysphagia, COPD, dyskinesia, anemia, hypothyroidism, paranoid schizophrenia, CAD status post CABG, history of TIA presenting to the ED from [facility] for evaluation of G tube. On exam patient is awake, alert, VS WNL, afebrile, physical exam findings as above. Given reported symptoms and physical exam findings, initial differential includes dislodged G tube. X-ray notable for no extravasation. My interpretation is in agreement with the radiologist's interpretation. Tube flushes easily on exam. Patient stable for discharge back to facility. Differential Diagnosis Differential Diagnoses: The differential diagnosis associated with the presentation includes As per [facility] Independent Interpretation I performed an independent interpretation of an: Plain X-Ray Interpretation: No extravasation noted on x-ray Radiology Impression Discussion of test interpretation with radiology: I have reviewed the radiologist's reading. Radiologist Impression: FINDINGS: There has been injection of 30 mL Gastrografin and 30 mL of water into a G-tube by the provider. A portable view of the abdomen was obtained following injection demonstrating opacification of the small bowel. No extraluminal contrast extravasation is suggested on the basis of these static films. Severe constipation. XR/XR KUB IMPRESSION: As above. External Record Review External record reviewed: Inpatient record, Office record and Outpatient record Discharge Plan Discharge Clinical Impression: Gastrostomy tube in place Patient Disposition: Xfer [facility] Transfer Details: return to [facility] Additional Instructions: Alejo was seen in the emergency department today for concern of G-tube dislodgement. His evaluation, including x-ray, shows the tube is in place and flushes easily. Please follow-up with his primary care provider for any other concerns. Prescriptions: No Action lactulose 10 gram/15 mL solution 30 ml PO DAILY Eliquis 5 mg Tablet 5 mg PO BID Qty: 60 0RF Hold Instructions: Resume on 04/18/23. amiodarone 200 mg tablet 200 mg G-tube DAILY Rx Instructions: Take amiodarone 400 mg (2 tablets) twice daily through 03/18 Then take amiodarone 200 mg 1 tablet daily starting 03/19 amoxicillin-pot clavulanate 875-125 mg Tablet 1 tab PO BID Rx Instructions: x 10 days, finish 04/18/23 insulin glargine [Lantus Solostar U-100 Insulin] 100 unit/mL (3 mL) Insulin Pen 20 unit SUBCUT BEDTIME sennosides [senna] 8.6 mg Tablet 8.6 mg PO DAILY PRN (Reason: Constipation) nicotine 7 mg/24 hr Patch 24 Hour 1 patch TRANSDERMAL Q24H metoprolol tartrate 25 mg tablet 12.5 mg PO BID Protocol: Hold for SBP/HR < HOLD for SBP < : 90 HOLD for HR < : 60 atorvastatin 80 mg tablet 80 mg feeding tube BEDTIME Qty: 30 0RF levothyroxine 75 mcg tablet 75 mcg feeding tube DAILY@0600 Qty: 30 0RF ferrous sulfate 325 mg (65 mg iron) Tablet 325 mg feeding tube DAILY@1700 Qty: 20 0RF Prilosec 10 mg susp,delayed release for recon 20 mg feeding tube BID Qty: 30 0RF metformin 500 mg tablet 500 mg feeding tube BID Qty: 60 0RF
--- NOTE | 2023-06-05 10:29 | PC.NURSE ---
hand off report called to [facility] for pt transport back to facility
== END 2023-06-05 14:08 ==
PROVIDERS: Emergency Provider Emergency Medicine; PCP Hospitalist
DX: R10.9 Unspecified abdominal pain (principal); Z43.1 Encounter for attention to gastrostomy; Z79.899 Other long term (current) drug therapy; Z87.891 Personal history of nicotine dependence
CPT/HCPCS: 74018; 99283; 99284

== ENCOUNTER 2023-06-10 00:18 | Emergency (ER) | payer MEDICARE, MEDICAID, SELFPAY ==
[2023-06-10 00:29] VITALS: BP 109/70; BP 142/72; PULSE 85; PULSE 87; RESP 18; TEMP 36.8; O2SAT 96; O2SAT 98; BMI 20.2
[2023-06-10 00:35] LABS: Glucose, Whole Blood 52 mg/dL (60-115)
[2023-06-10 01:04] LABS: MANUAL DIFF FLAG NO
[2023-06-10 01:05] LABS: Basophils Absolute Auto 0.1 X10*3/uL (0.0-0.2); Basophils Percent Auto 0.8 % (0-2); Eosinophils Absolute Auto 0.1 X10*3/uL (0.0-0.4); Eosinophils Percent Auto 1.2 % (0-4); Hematocrit 32.8 % (42.0-52.0); Hemoglobin 10.5 g/dl (14.0-18.0); Imm Gran Abs Auto 0.04 X10*3/uL (0.00-0.03); Imm Gran Pct Auto 0.4 % (0.0-0.4); Lymphocytes Absolute Auto 2.1 X10*3/uL (1.2-4.9); Lymphocytes Percent Auto 22.9 % (20-40); Mean Corpuscular Hemoglobin 26.4 pg (27.0-33.0); Mean Corpuscular Volume 82.4 fL (80.0-98.0); Mean Platelet Volume 9.3 fL (9.4-12.4); Monocytes Absolute Auto 0.8 X10*3/uL (0.1-1.2); Monocytes Percent Auto 8.4 % (2-11); Neutrophils Absolute Auto 6.1 x10*3/uL (2.0-8.3); Neutrophils Percent Auto 66.3 % (45-73); Platelet Count 361 X10*3/uL (160-400); Red Blood Count 3.98 X10*6/uL (4.60-5.80); Red Cell Distribution Width 19.2 % (11.0-16.0); White Blood Count 9.2 X10*3/uL (4.8-10.8)
--- NOTE | 2023-06-10 01:17 | ED.GENADULT ---
HPI - General Adult General Chief complaint: General Medical Stated complaint: GTube issue/Diabetic Time Seen by Provider: 06/10/23 00:42 History of Present Illness HPI narrative: Patient is a 62-year-old male presents today with having a possible G-tube issue. Patient had a CT scan of the abdomen done earlier at [facility] showed a possible intussusception around the G-tube. A subsequent x-ray confirm good placement of the tube. Patient for unknown reason was sent to the emergency department for further evaluation. He was unable to give detailed history he did not receive his full 2 ft. Patient came to the emergency department. Related Data Home Medications Medication Instructions Recorded Confirmed lactulose 10 gram/15 mL oral 30 ml PO DAILY 12/13/21 04/13/23 solution nicotine 7 mg/24 hr daily 1 patch transdermal Q24H Smoking 12/27/22 04/13/23 transdermal patch Cessation sennosides 8.6 mg tablet (senna) 8.6 mg PO DAILY PRN Constipation 12/27/22 04/13/23 metoprolol tartrate 25 mg tablet 12.5 mg PO BID 02/20/23 04/13/23 amiodarone 200 mg tablet 200 mg G-tube DAILY 03/20/23 04/13/23 amoxicillin 875 mg-potassium 1 tab PO BID 04/13/23 04/13/23 clavulanate 125 mg tablet insulin glargine 100 unit/mL (3 20 unit subcut BEDTIME 04/13/23 04/13/23 mL) subcutaneous pen (Lantus Solostar U-100 Insulin) Previous Rx's Medication Instructions Recorded apixaban 5 mg tablet (Eliquis) 5 mg PO BID #60 tabs 12/16/21 atorvastatin 80 mg tablet 80 mg feeding tube BEDTIME #30 tabs 03/17/23 ferrous sulfate 325 mg (65 mg 325 mg feeding tube DAILY@1700 #20 03/17/23 iron) tablet tabs levothyroxine 75 mcg tablet 75 mcg feeding tube DAILY@0600 #30 03/17/23 tabs metformin 500 mg tablet 500 mg feeding tube BID #60 tabs 03/17/23 omeprazole magnesium 10 mg oral 20 mg feeding tube BID #30 ea 03/17/23 suspension,delayed release (Prilosec) Allergies Allergy/AdvReac Type Severity Reaction Status Date / Time No Known Allergies Allergy Verified 06/05/23 01:28 [No Known Allergies*] Review of Systems Review of Systems: Unable to obtain review of systems [facility] Past Medical History Medical History Urinary retention Fungemia Candidal urinary tract infection Paroxysmal atrial fibrillation Afib CAD (coronary artery disease) Personal history of transient ischemic attack (TIA), and cerebral infarction without residual deficits Altered mental status Atherosclerotic heart disease of [place] coronary artery without angina pectoris Essential (primary) hypertension Amblyopia, 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 Paranoid schizophrenia Hyperlipidemia Hypothyroidism Anemia Encephalopathy Drug induced subacute dyskinesia Cognitive impairment Exotropia, alternating, with A pattern Hypermetropia of both eyes Dysphagia Boutonniere deformity of finger COVID-19 Type 2 diabetes mellitus COPD (chronic obstructive pulmonary disease) Dementia Surgical History S/P colectomy (~02/23/23) Presence of aortocoronary bypass graft Social History Household Members: None Household Members Other:: [facility] Housing: Senior Living Housing Other:: [facility] Do you presently have visiting nurse or other home services: No Unable to assess alcohol history related to: Unable to respond Alcohol intake: former Patient Tobacco Use Status: Former Tobacco user Tobacco use type: Cigarette Years Smoked: SURAJ Advance Directives: Yes Advance Directives on File: Yes Advance Directives Date on File: 12/14/21 service: No Current occupational status: disabled Physical Exam ED Vital Signs: Vital Signs - 24 hr 06/10/23 00:29 06/10/23 02:00 Temperature 98.2 F Pulse Rate 87 78 Respiratory Rate 18 20 Blood Pressure 109/70 113/69 Pulse Oximetry 96 98 Oxygen Delivery Method Room Air Nasal Cannula Oxygen Flow Rate 2 BMI result Body Mass Index 20.2 Appearance: Alert. . No acute distress. Eyes: Pupils equal, round and reactive to light. ENT: Pharynx normal. Neck: Normal inspection. Neck supple. No lymph nodes noted. No crepitus CVS: Normal heart rate and rhythm. Pulses normal. Normal S1 and S2 Respiratory: No respiratory distress. Breath sounds normal. No Wheezing. No rales Abdomen: Soft and nontender. No rigidity. No distention. good BS x4 Skin: Skin warm and dry. Normal skin color. Normal skin turgor. Extremities: No lower extremity edema. Neurovascular intact to all extremities. No Lacerations. No Rash Neuro: No sensory deficit. Contracted, No slurred speech Medical Decision Making Medical Decision Making [facility] Narrative: Patient's G-tube was flushed. The G-tube is working. There is no distress. Patient's colostomy bag was replaced. Nursing placed a phone call to the long-term. Willing to take the patient home no other concerns. Review patient's note from [facility] patient earlier had a CT scan which showed an intussusception around the G-tube. After some manipulation a repeat KUB was done which showed contrast flowing. No evidence of intussusception. Patient is currently in stable condition. Will discharge back to the long-term Differential Diagnosis Differential Diagnoses: The differential diagnosis associated with the presentation includes Malfunction G-tube Admission/Observation Consideration of admission/observation: Escalation of care including admission/observation considered No need to admit as G-tube is working Lab Data [facility] Lab Attestation statement: I reviewed the patient's lab results. 06/10/23 01:00 06/10/23 01:00 Labs: Lab Results 06/10/23 06/10/23 06/10/23 Range/Units 00:30 01:00 01:25 WBC 9.2 (4.8-10.8) X10*3/uL RBC 3.98 L (4.60-5.80) X10*6/uL Hgb 10.5 L (14.0-18.0) g/dl Hct 32.8 L (42.0-52.0) % MCV 82.4 (80.0-98.0) fL MCH 26.4 L (27.0-33.0) pg MCHC 32.0 (31.0-36.0) g/dl RDW 19.2 H (11.0-16.0) % Plt Count 361 (160-400) X10*3/uL MPV 9.3 L (9.4-12.4) fL Immature Gran % (Auto) 0.4 (0.0-0.4) % Neut % (Auto) 66.3 (45-73) % Lymph % (Auto) 22.9 (20-40) % [place] % (Auto) 8.4 (2-11) % Eos % (Auto) 1.2 (0-4) % Baso % (Auto) 0.8 (0-2) % Lymph # (Auto) 2.1 (1.2-4.9) X10*3/uL [place] # (Auto) 0.8 (0.1-1.2) X10*3/uL Eos # (Auto) 0.1 (0.0-0.4) X10*3/uL Baso # (Auto) 0.1 (0.0-0.2) X10*3/uL Abs Immat Gran (auto) 0.04 H (0.00-0.03) X10*3/uL Absolute Neuts (auto) 6.1 (2.0-8.3) x10*3/uL Absolute Nucleated RBC 0.000 (0.0-0.012) X10*3/uL Nucleated RBC % (auto) 0.0 (0.0-0.2) /100WBC Sodium 138 (135-145) mmol/L Potassium 4.1 (3.3-5.1) mmol/L Chloride 104 (96-108) mmol/L Carbon Dioxide 23 (22-29) mmol/L Anion Gap 15 (12-20) BUN 13 (9-16) mg/dL Creatinine 0.60 (0.5-1.4) mg/dL Estim Creat Clear Calc 107.6 Estimated GFR > 60 POC Glucose 52 L* 181 H (60-115) mg/dL Random Glucose 50 L* (60-115) mg/dL Calcium 9.3 (8.4-10.2) mg/dL Total Bilirubin 0.6 (0.0-1.0) mg/dL AST 24 (5-37) U/L ALT 13 (0-40) U/L Alkaline Phosphatase 79 (39-117) U/L Total Protein 7.1 (6.5-8.0) g/dL Albumin 3.1 L (3.5-5.0) g/dL External Record Review X-ray finding from [facility] Prescription Management No need for additional medication as G-tube is working Discharge Plan Discharge Clinical Impression: Gastrostomy tube dysfunction Patient Disposition: Home, Self-Care Instructions: How to Use and Care for Your PEG Tube (ED) Prescriptions: No Action lactulose 10 gram/15 mL solution 30 ml PO DAILY Eliquis 5 mg Tablet 5 mg PO BID Qty: 60 0RF Hold Instructions: Resume on 04/18/23. amiodarone 200 mg tablet 200 mg G-tube DAILY Rx Instructions: Take amiodarone 400 mg (2 tablets) twice daily through 03/18 Then take amiodarone 200 mg 1 tablet daily starting 03/19 amoxicillin-pot clavulanate 875-125 mg Tablet 1 tab PO BID Rx Instructions: x 10 days, finish 04/18/23 insulin glargine [Lantus Solostar U-100 Insulin] 100 unit/mL (3 mL) Insulin Pen 20 unit SUBCUT BEDTIME sennosides [senna] 8.6 mg Tablet 8.6 mg PO DAILY PRN (Reason: Constipation) nicotine 7 mg/24 hr Patch 24 Hour 1 patch TRANSDERMAL Q24H metoprolol tartrate 25 mg tablet 12.5 mg PO BID Protocol: Hold for SBP/HR < HOLD for SBP < : 90 HOLD for HR < : 60 atorvastatin 80 mg tablet 80 mg feeding tube BEDTIME Qty: 30 0RF levothyroxine 75 mcg tablet 75 mcg feeding tube DAILY@0600 Qty: 30 0RF ferrous sulfate 325 mg (65 mg iron) Tablet 325 mg feeding tube DAILY@1700 Qty: 20 0RF Prilosec 10 mg susp,delayed release for recon 20 mg feeding tube BID Qty: 30 0RF metformin 500 mg tablet 500 mg feeding tube BID Qty: 60 0RF Referrals: Lamonte Jenkins DO [Primary Care Provider] - 06/12/23
[2023-06-10 01:22] LABS: Alanine Aminotransferase 13 U/L (0-40); Albumin Level 3.1 g/dL (3.5-5.0); Alkaline Phosphatase 79 U/L (39-117); Anion Gap 15 (12-20); Aspartate Amino Transferase 24 U/L (5-37); Bilirubin Total 0.6 mg/dL (0.0-1.0); Blood Urea Nitrogen 13 mg/dL (9-16); Calcium 9.3 mg/dL (8.4-10.2); Carbon Dioxide 23 mmol/L (22-29); Chloride 104 mmol/L (96-108); Creatinine Clr Calc Pharmacy 107.6; Estimated Glomerular Filt Rate > 60; Potassium 4.1 mmol/L (3.3-5.1); Sodium 138 mmol/L (135-145); Total Protein 7.1 g/dL (6.5-8.0)
[2023-06-10 01:23] LABS: Glucose Random 50 mg/dL (60-115)
[2023-06-10 01:30] LABS: Glucose, Whole Blood 181 mg/dL (60-115)
[2023-06-10 02:00] VITALS: BP 113/69; PULSE 78; RESP 20; O2SAT 98
--- NOTE | 2023-06-10 03:48 | PC.NURSE ---
late entry - pt [facility]. per ems pt was [place] [facility] [place] in the day for ? g tube dislodgment as facility was unable to flush g tube or administer meds/feedings. pt arrived with poc of 50 as facility not able to feed pt and he is diabetic. iv line placed and 1 amp dextrose administered per MD verbal order. verified with second RN Marybeth. at this time MD and RN here have assessed pt g tube, cleaned the area, changed the dressing, able to pull back on g tube and able to administer 60+cc saline flush with no issues. MD confirming no issues with g tube - does not need to be replaced at this time. facility aware [facility] [place] proper size Fr g tube for the patient anyway. facility aware pt will be returning and g tube flushing , new dressing in place with no issues.
[2023-06-10 04:00] VITALS: BP 121/77; PULSE 84; RESP 24; O2SAT 100
--- NOTE | 2023-06-10 04:22 | MHC.EDTECH ---
CALL OUT TO PIPE AT [phone] TO BOOK TRANSPORT FOR PT BACK TO SNF, ESTIMATED ETA GIVEN WAS [phone]
[2023-06-10 04:55] LABS: Glucose, Whole Blood 99 mg/dL (60-115)
== END 2023-06-10 05:23 | disposition home or self-care (01) ==
PROVIDERS: Emergency Provider Emergency Medicine Emergency Medical Services; PCP Hospitalist
DX: K94.23 Gastrostomy malfunction (principal); E11.9 Type 2 diabetes mellitus without complications; E78.5 Hyperlipidemia, unspecified; E03.9 Hypothyroidism, unspecified; I48.0 Paroxysmal atrial fibrillation; Z79.899 Other long term (current) drug therapy
CPT/HCPCS: 36415; 80053; 82947; 85025; 99283

== ENCOUNTER → 2023-06-30 12:45 | Outpatient (BNV) | payer MEDICARE, MEDICAID, SELFPAY | PROVIDERS: PCP Hospitalist; Visit Provider Internal Medicine Pulmonary Disease | DX: J96.21 Acute and chronic respiratory failure with hypoxia (principal) | CPT/HCPCS: 94060; 94729 ==

== ENCOUNTER 2023-06-30 12:55 | Outpatient (REF) | payer MEDICARE, MEDICAID, SELFPAY ==
--- NOTE | 2023-06-30 13:55 | PFT_ITS ---
Flows: FEV1: 44 % of predicted at 1.42 L FVC: 70 % of predicted at 2.94 L FEV1/FVC: 48 % Bronchodilator response: Absent Volumes: Patient unable to perform Diffusion capacity: Severely decreased Impression: Severe obstructive ventilatory defect with no bronchodilator response. Decreased diffusion capacity suggests emphysema. Patient was unable to perform lung volume maneuvers. MTDD
== END 2023-06-30 12:56 | disposition home or self-care (01) ==
LOC: HO.RESP 12:55
PROVIDERS: PCP Hospitalist; Visit Provider Hospitalist
DX: J96.21 Acute and chronic respiratory failure with hypoxia (principal); J44.9 Chronic obstructive pulmonary disease, unspecified
CPT/HCPCS: 94010; 94727; 94729

== ENCOUNTER 2023-07-29 08:58 | Outpatient (REF) | payer MEDICARE, MEDICAID, SELFPAY ==
--- NOTE | ~2023-07-29 | CT_ITS ---
EXAMINATION: CT HEAD WITHOUT CONTRAST CLINICAL INFORMATION: Follow-up subdural. COMPARISON: CT scan of the head and cervical spine 04/19/2023. CT scan of the head, facial bones and cervical spine 12/27/2022. TECHNIQUE: Multidetector CT imaging of the head was obtained without the use of intravenous contrast. Coronal and sagittal reformatted images were generated at the technologist workstation. This CT examination was performed using dose optimization techniques as appropriate, variously including the following: *Automated exposure control *Adjustment of mA and/or kV according to patient size (this includes techniques or standardized protocols for targeted exams where dose is matched to indication/reason for exam; i.e. extremities or head) *Use of iterative reconstruction technique DLP: 671 mGy-cm. FINDINGS: The study redemonstrates minimally hyperdense extra-axial collections over the cerebral hemispheres bilaterally, more prominent on the left. The collection on the left has a maximum thickness of 0.6 cm in the right collection has a thickness of 0.5 cm, and these are decreased compared to prior imaging. There is no mass effect on the adjacent sulci. There is no midline shift. There is no evidence of acute hemorrhage or territorial infarct. The study redemonstrates areas of gliosis in the inferior frontal lobes bilaterally and in the left occipital lobe, consistent with gliotic and encephalomalacia. There are moderate atheromatous calcifications of the cavernous internal carotid arteries bilaterally. The study redemonstrates irregularity of the nasal bones bilaterally, consistent with sequelae of prior trauma. The nasal septum is deviated to the left. There is cerumen in the bilateral external artery canals. The paravertebral soft tissues are unremarkable. 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 The mastoid air cells and the visualized paranasal sinuses are well-aerated. CT/CT head/brain wo IV con IMPRESSION: 1. The study redemonstrates minimally hyperdense extra-axial collections over the cerebral hemispheres bilaterally, more prominent on the left and these are decreased compared to prior imaging. There is no mass effect on the adjacent sulci. There is no midline shift. 2. 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 3. There are sequelae of chronic infarcts in the bilateral inferior frontal lobes and in the left occipital lobe. 4. Irregularity of the bilateral nasal bones is consistent with history of prior trauma.
== END 2023-07-29 08:59 | disposition home or self-care (01) ==
LOC: HO.CT 08:58
PROVIDERS: PCP Hospitalist; Visit Provider Hospitalist
DX: S06.5X0D Traumatic subdural hemorrhage without loss of consciousness, subsequent encounter (principal)
CPT/HCPCS: 70450

== ENCOUNTER 2023-08-21 10:55 | Outpatient (REF) | payer MEDICARE, MEDICAID, SELFPAY ==
--- NOTE | ~2023-08-21 | XR_ITS ---
EXAMINATION: XR ABDOMEN KUB CLINICAL INDICATION: For assessment of gastrostomy tube placement. COMPARISON: KUB dated 06/05/2023. TECHNIQUE: AP view of the abdomen. FINDINGS: The bowel gas pattern is normal with no evidence of ileus or obstruction. No gross free intraperitoneal air is seen. A gastrostomy tube projects in the expected vicinity of the distal gastric body, with balloon inflated. A Major catheter is noted. No unusual soft tissue calcifications are noted. There are pelvic phleboliths and atherosclerotic calcifications. There is no acute osseous abnormality. XR/XR KUB IMPRESSION: A gastrostomy tube projects in the expected vicinity of the distal gastric body, with balloon inflated.
== END 2023-08-21 10:56 | disposition home or self-care (01) ==
LOC: HO.XRAY 10:55
PROVIDERS: PCP Hospitalist; Visit Provider Internal Medicine Gastroenterology
DX: Z93.1 Gastrostomy status (principal)
CPT/HCPCS: 74018; 99212

== ENCOUNTER 2023-08-21 10:55 | Outpatient (AMB) | payer MEDICARE, MEDICAID, SELFPAY ==
[2023-08-21 10:57] VITALS: BP 88/53; PULSE 99; BMI 19.3
--- NOTE | 2023-08-21 10:57 | MHC.OFFVIS ---
Intake Vital Signs 08/21/23 10:57 Height 5 ft 8 in Weight 127 lb BMI 19.3 BP 88/53 L Blood Pressure Location Lt brachial Position Sitting Pulse 99 Intake Visit Reasons: ER follow up for peg tube. Intake Note: Alejo presents in the office as a ER follow up regarding a peg tube. CC: This is a initial consult for g tube complications. G tube replaced for J Tube on 06/08/23 at [facility] [place] - Port broken and needs replacement. Losing weight. Operations Manager Assistant Required: No Allergies No Known Allergies [No Known Allergies*] Allergy (Verified 08/21/23 11:00) HPI ER follow up for peg tube. HPI Details 62 yr old m with hx of dementia, COPD, dm 2, dysphagia, dyskinesia, anemia, hypothyroidism, paranoid schizophrenia, CAD s/p CABG, history of TIA and brain injury here for feeding tube assessment Patient had tube placed ? [facility], documentation keeps saying G tube was swapped out for J tube, but the tube itself has ports labelled as gastric no jejunal labelled port seen Patient has minimal verbalization at baseline PMH:dementia, COPD, dm 2, dysphagia, dyskinesia, anemia, hypothyroidism, paranoid schizophrenia, CAD s/p CABG, history of TIA PSH:embolization SH: lives in care facility FH: unknown ROS: unable to obtain EXAM: GENERAL: The patient is dishevelled VITAL SIGNS:see workflow HEENT: Nonicteric sclerae, PERRLA, EOMI. Oropharynx clear. Moist mucous membranes. Conjunctivae appear well perfused. No thyroid mass. CHEST: Chest wall is nontender. HEART: Regular rate and rhythm without murmurs. LUNGS: Clear to auscultation bilaterally. ABDOMEN: Soft, positive bowel sounds, nontender, no organomegaly.no flank tenderness--feeding tube noted with friable granulation tissue treated with silver nitrate and colostomy SKIN: No rash, no excessive bruising, petechiae, or purpura. NEUROLOGIC: Cranial nerves II-XII intact without motor/sensory deficit. Psych: dementia-minimal verbal A/P: 1/ Feeding tube, documentation keeps saying J tube but appears to be a G tube with no port labelled jejunal 2/ Barretts 3/ granulation tissue--treated with silver nitrate Plan: 1/ KUB 2/ EGD for assessment for Barretts and tube, if G tube will replace, if G-J refer IR --stop eliquis for 2 d before [facility] Medical History Urinary retention Fungemia Candidal urinary tract infection Paroxysmal atrial fibrillation Afib CAD (coronary artery disease) Personal history of transient ischemic attack (TIA), and cerebral infarction without residual deficits Altered mental status Atherosclerotic heart disease of [place] coronary artery without angina pectoris Essential (primary) hypertension Amblyopia, 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 Paranoid schizophrenia Hyperlipidemia Hypothyroidism Anemia Encephalopathy Drug induced subacute dyskinesia Cognitive impairment Exotropia, alternating, with A pattern Hypermetropia of both eyes Dysphagia Boutonniere deformity of finger COVID-19 Type 2 diabetes mellitus COPD (chronic obstructive pulmonary disease) Dementia Surgical History S/P colectomy (~02/23/23) Presence of aortocoronary bypass graft Social History Household Members: None Household Members Other:: [facility] Housing: Retirement Housing Other:: [facility] Do you presently have visiting nurse or other home services: No Unable to assess alcohol history related to: Unable to respond Alcohol intake: former Comment: 1 TO 1 SITTER PRESENT Patient Tobacco Use Status: Former Tobacco user Tobacco use type: Cigarette Years Smoked: SURAJ Advance Directives Date on File: 12/14/21 service: No Current occupational status: disabled Physical Exam Vital Signs: Last Vital Signs Pulse 99 08/21/23 10:57 BP 88/53 L 08/21/23 10:57 BMI result Body Mass Index 19.3 Assessment & Plan Assessment & Plan (1) G tube feedings: Code(s): Z93.1 - Gastrostomy status Plan: A/P: 1/ Feeding tube, documentation keeps saying J tube but appears to be a G tube with no port labelled jejunal 2/ Barretts 3/ granulation tissue--treated with silver nitrate Plan: 1/ KUB 2/ EGD for assessment for Barretts and tube, if G tube will replace, if G-J refer IR --stop eliquis for 2 d before Orders: Orders XR KUB Today Z93.1 - Gastrostomy status Coding Level of Care Code Est Pt Level 3 (46234) Diagnoses G tube feedings Z93.1 Comment silver nitrate also applied to granulation tissue
== END 2023-08-21 11:54 | disposition home or self-care (01) ==
PROVIDERS: PCP Hospitalist; Visit Provider Internal Medicine Gastroenterology
DX: Z93.1 Gastrostomy status (principal)
CPT/HCPCS: 99213

== ENCOUNTER 2023-08-27 10:55 | Outpatient (REF) | payer MEDICARE, MEDICAID, SELFPAY ==
--- NOTE | ~2023-08-27 | MR_ITS ---
EXAMINATION: MR ABDOMEN WITHOUT AND WITH CONTRAST CLINICAL INFORMATION: 1 cm well-circumscribed low-density lesion in the spleen. COMPARISON: Abdominal ultrasound 04/13/2023 CT abdomen pelvis 03/20/2023 TECHNIQUE: MRI of the abdomen before and after the IV administration of 5.5 mL of Gadavist was obtained using routine sequences. FINDINGS: LUNG BASES: The visualized lung bases are unremarkable. KIDNEYS AND URETERS: Bosniak 1 benign-appearing left renal cysts, no imaging follow-up recommended. GALLBLADDER: Unremarkable. LIVER AND BILIARY TREE: Liver is mildly enlarged measuring 19.8 cm in span, previously 21 cm. No intra or extrahepatic biliary duct dilatation. PANCREAS: Unremarkable SPLEEN: A 1.2 cm T2 bright simple cyst in the spleen. ADRENAL GLANDS: Unremarkable GASTROINTESTINAL TRACT: Percutaneous gastrostomy tube in place. Left lower quadrant ostomy. LYMPH NODES: No lymphadenopathy. VASCULAR: Unremarkable ABDOMINAL WALL: Unremarkable. OSSEOUS STRUCTURES: Median sternotomy wires. MR/MR abdomen wo/w con IMPRESSION: 1. Liver is mildly enlarged measuring 19.8 cm in span and is slightly decreased from prior. 2. A 1.2 cm T2 bright simple cyst in the spleen.
[2023-08-27] MEDS: gadobutroL 7.5 ML VIAL IVPUSH (12:11)
== END 2023-08-27 10:56 | disposition home or self-care (01) ==
LOC: HO.MRI 10:55
PROVIDERS: PCP Hospitalist; Visit Provider Hospitalist
DX: D73.89 Other diseases of spleen (principal); Z93.1 Gastrostomy status
CPT/HCPCS: 74183; A9585

== ENCOUNTER 2023-09-03 07:38 | Day surgery (SDC) | payer MEDICARE, MEDICAID, SELFPAY ==
--- NOTE | 2023-09-02 11:01 | HO.ANESPROP2 ---
Documented by User: Amanda Salas NP 09/02/23 11:48 HPI - Anesthesia Eval Consult details Narrative: 62yo M for Upper Endoscopy, Gastrostmy Tube Replacement if needed [facility] resident with complect PMHx Eliquis for afib s/p sigmoid resection and G tube placement [place]2023 [facility] [place] with aspiration pna PMFSH Active Problems Active Problems: All Active Problems (Updated 08/21/23 @ 11:25 by Shari Bradley MD) G tube feedings (Acute) Abdominal wound dehiscence (Acute) Aspiration pneumonia of both lower lobes (Acute) Pressure injury of sacral region, stage 2 (Acute) Drainage from wound (Acute) Fungemia (Acute) Encephalopathy (Acute) Pneumonia (Acute) Dysphagia (Acute) Hypoalbuminemia (Acute) Pneumonia (Acute) Swallowing problem (Acute) Open displaced fracture of nasal bone (Acute) Fracture of nasal septum (Acute) Past Medical History Medical History Urinary retention Fungemia Candidal urinary tract infection Paroxysmal atrial fibrillation Afib CAD (coronary artery disease) Personal history of transient ischemic attack (TIA), and cerebral infarction without residual deficits Altered mental status Atherosclerotic heart disease of [place] coronary artery without angina pectoris Essential (primary) hypertension Amblyopia, 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 Paranoid schizophrenia Hyperlipidemia Hypothyroidism Anemia Encephalopathy Drug induced subacute dyskinesia Cognitive impairment Exotropia, alternating, with A pattern Hypermetropia of both eyes Dysphagia Boutonniere deformity of finger COVID-19 Type 2 diabetes mellitus COPD (chronic obstructive pulmonary disease) Dementia Family History Family history of problems with anesthesia: No Surgical History Surgical History S/P colectomy (~02/23/23) Presence of aortocoronary bypass graft History of Problems with Anesthesia: No Social History Social History Household Members: None Household Members Other:: [facility] Housing: Residential Housing Other:: [facility] Do you presently have visiting nurse or other home services: No Unable to assess alcohol history related to: Unable to respond Alcohol intake: former Comment: 1 TO 1 SITTER PRESENT Patient Tobacco Use Status: Former Tobacco user Tobacco use type: Cigarette Years Smoked: SURAJ Are you DNR?: Yes Advance Directives: No Advance Directives Information Provided: Yes Advance Directives Date on File: 12/14/21 service: No Current occupational status: disabled Meds Allergies Allergy/AdvReac Type Severity Reaction Status Date / Time No Known Allergies Allergy Verified 08/21/23 11:00 [No Known Allergies*] Home Medications Medication Instructions Recorded Confirmed Last Taken Type lactulose 10 gram/15 mL oral 30 ml PO DAILY 12/13/21 04/13/23 12/12/21 History solution sennosides 8.6 mg tablet (senna) 8.6 mg PO DAILY PRN Constipation 12/27/22 04/13/23 Unknown History metoprolol tartrate 25 mg tablet 12.5 mg PO BID 02/20/23 04/13/23 09/03/23 History insulin glargine 100 unit/mL (3 20 unit subcut BEDTIME 04/13/23 04/13/23 Unknown History mL) subcutaneous pen (Lantus Solostar U-100 Insulin) clozapine 100 mg tablet 125 mg PO BID 08/21/23 Unknown History glucagon 1 mg solution for 1 mg subcut Q20M PRN 08/21/23 Unknown History injection lansoprazole 15 mg capsule,delayed 15 mg feeding tube DAILY 08/21/23 Unknown History release (Acid Tool Sharpener (lansoprazole)) levothyroxine 75 mcg tablet 88 mcg feeding tube DAILY@0600 08/21/23 Unknown History naloxone 0.4 mg/mL injection 0.4 mg subcut Q2M PRN 08/21/23 Unknown History solution tramadol 50 mg tablet 50 mg PO DAILY 08/21/23 Unknown History amiodarone 200 mg tablet 200 mg PO DAILY 09/02/23 09/02/23 Unknown History Exam Pertinent Lab Results Pertinent Lab Results: Laboratory Tests 06/10/23 01:00 WBC 9.2 Hgb 10.5 L Hct 32.8 L Plt Count 361 Sodium 138 Potassium 4.1 Chloride 104 Carbon Dioxide 23 BUN 13 Creatinine 0.60 Narrative Narrative: EKG 04/2023 Vent. Rate : 111 BPM Atrial Rate : 111 BPM P-R Int : 198 ms QRS Dur : 068 ms QT Int : 332 ms P-R-T Axes : 082 086 068 degrees QTc Int : 451 ms Poor data quality, interpretation may be adversely affected Sinus tachycardia Otherwise normal ECG When compared with ECG of 04-APR-2023 09:17, Vent. rate has increased BY 38 BPM Non-specific change in ST segment in Inferior leads Nonspecific T wave abnormality, improved in Inferior leads T wave inversion no longer evident in Anterior leads Assessment and Plan Assessment Anesthesia Assessment: Chart Reviewed Final Anesthetic Review Family History of Problems with Anesthesia: No History of Problems with Anesthesia: No Documented by User: Bob Zarate MD 09/03/23 08:57 HPI - Anesthesia Eval Consult details Narrative: 62yo M for Upper Endoscopy, Gastrostmy Tube Replacement if needed [facility] resident with complect PMHx. H/o paranoid schizophrenia and dementia. 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 Paranoid schizophrenia Hyperlipidemia Hypothyroidism Anemia Encephalopathy Drug induced subacute dyskinesia Cognitive impairment Exotropia, alternating, with A pattern Hypermetropia of both eyes Dysphagia Boutonniere deformity of finger COVID-19 Type 2 diabetes mellitus COPD (chronic obstructive pulmonary disease) Dementia Surgical History Surgical History S/P colectomy (~02/23/23) Presence of aortocoronary bypass graft Social History Social History Household Members: None Household Members Other:: [facility] Housing: Residential Housing Other:: [facility] Do you presently have visiting nurse or other home services: No Unable to assess alcohol history related to: Unable to respond Alcohol intake: former Comment: 1 TO 1 SITTER PRESENT Patient Tobacco Use Status: Former Tobacco user Tobacco use type: Cigarette Years Smoked: SURAJ Are you DNR?: Yes Advance Directives: No Advance Directives Information Provided: Yes Advance Directives Date on File: 12/14/21 service: No Current occupational status: disabled Meds Allergies Allergy/AdvReac Type Severity Reaction Status Date / Time No Known Allergies Allergy Verified 08/21/23 11:00 [No Known Allergies*] Home Medications Medication Instructions Recorded Confirmed Last Taken Type lactulose 10 gram/15 mL oral 30 ml PO DAILY 12/13/21 04/13/23 12/12/21 History solution sennosides 8.6 mg tablet (senna) 8.6 mg PO DAILY PRN Constipation 12/27/22 04/13/23 Unknown History metoprolol tartrate 25 mg tablet 12.5 mg PO BID 02/20/23 04/13/23 09/03/23 History insulin glargine 100 unit/mL (3 20 unit subcut BEDTIME 04/13/23 04/13/23 Unknown History mL) subcutaneous pen (Lantus Solostar U-100 Insulin) clozapine 100 mg tablet 125 mg PO BID 08/21/23 Unknown History glucagon 1 mg solution for 1 mg subcut Q20M PRN 08/21/23 Unknown History injection lansoprazole 15 mg capsule,delayed 15 mg feeding tube DAILY 08/21/23 Unknown History release (Acid Tool Sharpener (lansoprazole)) levothyroxine 75 mcg tablet 88 mcg feeding tube DAILY@0600 08/21/23 Unknown History naloxone 0.4 mg/mL injection 0.4 mg subcut Q2M PRN 08/21/23 Unknown History solution tramadol 50 mg tablet 50 mg PO DAILY 08/21/23 Unknown History amiodarone 200 mg tablet 200 mg PO DAILY 09/02/23 09/02/23 Unknown History Exam Airway Mallampati Class: II TM Dist: >3cm Neck ROM: Full Denture: Upper and Lower Heart: s/p CABG. No information about his cardiac risk, so no judgment can be made. He is mostly wheelchair bound. Lungs: ok Assessment and Plan Assessment Anesthesia Assessment: Anesthesia Plan Discussed Final Anesthetic Review NPO: Yes ASA Class: IV Final Preanesthetic Review: No Changes in Pt Med Stat, Meds/Allgs Chart Reviewed, Consent Obtained/Reviewed and Anes Risks/Benef Reviewed Patient Risk: High Procedure Risk: Intermediate Anesthetic Plan Anesthetic Plan: Agree w/ Assess. and Plan and TIVA Disposition: Standard PACU
[2023-09-02 15:24] VITALS: BMI 19.5
[2023-09-03 07:35] VITALS: BMI 19.5
[2023-09-03] MEDS: Lactated Ringers 1,000 ML 100 ML IVCONT (08:18)
[2023-09-03 08:21] LABS: Glucose, Whole Blood 215 mg/dL (60-115)
--- NOTE | 2023-09-03 08:48 | MHC.SHP ---
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 Relevant Family History (Specify if Yes): No Relevant Social History: None Present Medications: see Short Stay Collaborative assessment Medical History: Significant History (Urinary retention Fungemia Candidal urinary tract infection Paroxysmal atrial fibrillation Afib CAD (coronary artery disease) Personal history of transient ischemic attack (TIA), and cerebral infarction without residual deficits Altered mental status Atherosclerotic heart disease of [place] coronary ) History of Previous Operations: Relevant previous surgery/procedure and date(s) ( S/P colectomy (~02/23/23) Presence of aortocoronary bypass graft) Allergies: Allergies Allergy/AdvReac Type Severity Reaction Status Date / Time No Known Allergies Allergy Verified 08/21/23 11:00 [No Known Allergies*] Review of Systems Sugical H&P ROS: Negative: Constitution, Cardiovascular, Respiratory, Neurological, Psychiatric, Hem-Onc, Allergic/Immunologic, Gastrointestinal, Genitourinary, Musculoskeletal, Integumentary, Endocrine and Eyes/Ears/Nose/Throat Exam Surgical H&P Exam: Normal: HEENT, Normal: Heart, Normal: Lungs, Normal: Extremities, Normal: Abdomen and Normal: Skin and Significant Findings: Neurological (non verbal, dementia ) Plan Diagnosis/Plan: Unchanged I have reviewed the history and physical and performed a pertinent physical examination on my patient. No changes have occurred unless specified. EGD for assessment of barretts and possibel g tube change Time Spent With Patient Time: Total time managing care of this patient today ____ minutes.
--- NOTE | 2023-09-03 08:50 | P.OP_ITS ---
Operative Note Operative Note Date of Service: 09/03/23 Narrative: Procedure Description: EGD Indication: hx of barretts and possible G tube change Anesthesia: MAC FLEXIBLE TRANSORAL UPPER GASTROINTESTINAL ENDOSCOPY UPPER ENDOSCOPY Consent: Indications for the procedure and potential complications of bleeding, perforation, reaction to medications and missed diagnosis were discussed with the patient and informed consent was obtained. Instrument: Olympus GIF H 190 J mid size upper endoscope Monitoring: Vital signs and clinical assessment, continuous EKG monitoring, Pulse oximetry, Carbon Dioxide monitoring and blood pressure monitoring were done throughout the procedure. Procedure: The patient was placed in the left lateral decubitis position and pre-procedure medications were administered and a bite block was placed. The endoscope was inserted into the mouth and advanced under direct vision to the third part of duodenum. A careful inspection was made as the upper endoscope was withdrawn including a retroflexed examination of the proximal stomach; Findings and interventions are described below. Findings: Larynx:normal Esophagus: GE junction at 35 cm, diaphragm hiatus at 40 cm, 5 cm hiatal hernia noted and salmon pink mucosa noted, C10, M11 by [place] classification, bx taken per [place] protocol. there was a stricture at 25 cm and unable to get the scope past so this was dilated with 11 mm ballon which allowed the scope to pass. Stomach: Normal mucosa. Grade 2 flap valve on retroflexed examination of the cardia. g tube noted with balloon prolapsed into the duodenal bulb --this was withdrawn and a 22 Fr G tube placed, with good position and noted to be tight, external bumper placed at 4 cm. Duodenum: Normal bulb and descending duodenum, Intervention: Biopsies as noted above, balloon dilation, G tube replacement Impression/Findings: hiatal hernia long segment Barretts esophageal stricture PLAN: await bx, depending on results can decide on follow up EGD
[2023-09-03 09:44] VITALS: BP 96/58; PULSE 96; RESP 16; TEMP 36.1; O2SAT 98
[2023-09-03 09:59] VITALS: BP 101/62; PULSE 78; RESP 20; TEMP 36.1; O2SAT 99
== END 2023-09-03 10:43 | disposition home or self-care (01) ==
PROVIDERS: PCP Hospitalist; Visit Provider Internal Medicine Gastroenterology
PROC: 0DJ08ZZ Inspection of Upper Intestinal Tract, Via Natural or Artificial Opening Endoscopic (ICD-10-PCS; CPT 43235; principal; 2023-09-03 09:00)
PROC: (CPT 43249; 2023-09-03 09:00)
DX: K22.70 Barrett's esophagus without dysplasia (principal); K44.9 Diaphragmatic hernia without obstruction or gangrene; K22.2 Esophageal obstruction; E11.9 Type 2 diabetes mellitus without complications; I10 Essential (primary) hypertension; E78.5 Hyperlipidemia, unspecified; I48.0 Paroxysmal atrial fibrillation; Z93.1 Gastrostomy status; Z86.73 Personal history of transient ischemic attack (TIA), and cerebral infarction without residual deficits; Z79.01 Long term (current) use of anticoagulants; Z79.4 Long term (current) use of insulin
CPT/HCPCS: 43249; 43239; 43246; 82947; 88305; C1726; J1596; J2704

== ENCOUNTER → 2023-09-03 07:38 | Outpatient (BNV) | payer MEDICARE, MEDICAID, SELFPAY | PROVIDERS: PCP Hospitalist; Visit Provider Internal Medicine Gastroenterology | DX: K22.70 Barrett's esophagus without dysplasia (principal); Z93.1 Gastrostomy status | CPT/HCPCS: 43246; 43249 ==

== ENCOUNTER 2023-09-11 09:40 | Emergency (ER) | payer MEDICARE, MEDICAID, SELFPAY ==
--- NOTE | ~2023-09-11 | XR_ITS ---
EXAMINATION: XR CHEST CLINICAL INFORMATION: Shortness of breath and leukocytosis acute mental status change COMPARISON: 04/16/[address] scan from 03/20/2023 TECHNIQUE: Chest AP upright portable exam FINDINGS: There are patchy airspace disease in the left lower lobe, suggestive for pneumonia. There are possibly mildly increased interstitial markings in the right lung and left upper lobe. Cardiomediastinal silhouette is normal. Patient is status post median sternotomy for CABG. There is no pleural effusion. XR/XR chest 1V IMPRESSION: Left lower lobe pneumonia.
--- NOTE | 2023-09-11 09:48 | ECG_ITS ---
Test Reason : ams, hypotensive Blood Pressure : / mmHG Vent. Rate : 090 BPM Atrial Rate : 090 BPM P-R Int : 210 ms QRS Dur : 086 ms QT Int : 372 ms P-R-T Axes : 083 055 110 degrees QTc Int : 455 ms Sinus rhythm with 1st degree A-V block Nonspecific T wave abnormality Abnormal ECG When compared with ECG of 19-APR-2023 22:28, Nonspecific T wave abnormality, worse in Inferior leads Nonspecific T wave abnormality, worse in Anterolateral leads Referred By: Bev Sewell Electronically Signed By:ANDREW DAVIS MD
--- NOTE | 2023-09-11 09:49 | ED_ITS ---
HPI - General Adult General Chief complaint: Altered Mental Status Stated complaint: cough fever tarru stool Time Seen by Provider: 09/11/23 09:47 Source: EMS Mode of arrival: EMS Limitations: other (AMS ) History of Present Illness HPI narrative: 62 years old hx of aspiration pna, AFIB on eliquis, encephalopathy, DM, COPD, pnumonitis, colostomy in place, hypothyroidim, HLD, HTN, schiozphrenia, cognative impaiment coming from [facility] with suspected GI bleed noted to have tarry stool this am. Also concerned of labs that were obtained on 09/11 at 0730 which showed anemia (HBG 6.8, HCT 21.5) and on 09/03 HGB 10.5 HCT 32.1. Patient on eliquis for Afib. Unable to obtain history from patient due to AMS hx from EMS and pervious notes. Related Data Home Medications Medication Instructions Recorded Confirmed lactulose 10 gram/15 mL oral 30 ml PO DAILY 12/13/21 04/13/23 solution sennosides 8.6 mg tablet (senna) 8.6 mg PO DAILY PRN Constipation 12/27/22 04/13/23 metoprolol tartrate 25 mg tablet 12.5 mg PO BID 02/20/23 04/13/23 insulin glargine 100 unit/mL (3 20 unit subcut BEDTIME 04/13/23 04/13/23 mL) subcutaneous pen (Lantus Solostar U-100 Insulin) clozapine 100 mg tablet 125 mg PO BID 08/21/23 glucagon 1 mg solution for 1 mg subcut Q20M PRN 08/21/23 injection lansoprazole 15 mg capsule,delayed 15 mg feeding tube DAILY 08/21/23 release (Acid Refrigeration Specialist (lansoprazole)) levothyroxine 75 mcg tablet 88 mcg feeding tube DAILY@0600 08/21/23 naloxone 0.4 mg/mL injection 0.4 mg subcut Q2M PRN 08/21/23 solution tramadol 50 mg tablet 50 mg PO DAILY 08/21/23 amiodarone 200 mg tablet 200 mg PO DAILY 09/02/23 09/02/23 Previous Rx's Medication Instructions Recorded apixaban 5 mg tablet (Eliquis) 5 mg PO BID #60 tabs 12/16/21 atorvastatin 80 mg tablet 80 mg feeding tube BEDTIME #30 tabs 03/17/23 ferrous sulfate 325 mg (65 mg 325 mg feeding tube DAILY@1700 #20 03/17/23 iron) tablet tabs metformin 500 mg tablet 500 mg feeding tube BID #60 tabs 03/17/23 omeprazole magnesium 10 mg oral 20 mg feeding tube BID #30 ea 03/17/23 suspension,delayed release (Prilosec) cefuroxime axetil 250 mg tablet 250 mg PO BID 7 days #14 tabs 09/11/23 Allergies Allergy/AdvReac Type Severity Reaction Status Date / Time No Known Allergies Allergy Verified 09/11/23 09:57 [No Known Allergies*] Review of Systems 2 Review of Systems: Yes Unobtainable due to mental status PMFSH Past Medical History Attestation statement: The following information was validated with the patient. 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 Paranoid schizophrenia Hyperlipidemia Hypothyroidism Anemia Encephalopathy Drug induced subacute dyskinesia Cognitive impairment Exotropia, alternating, with A pattern Hypermetropia of both eyes Dysphagia [place]out[place]niere deformity of finger COVID-19 Type 2 diabetes mellitus COPD (chronic obstructive pulmonary disease) Dementia Surgical History S/P colectomy (~02/23/23) Presence of aortocoronary bypass graft Social History Social History Household Members: None Household Members Other:: [facility] Housing: [facility] Other:: [facility] Do you presently have visiting nurse or other home services: No Unable to assess alcohol history related to: Unable to respond Alcohol intake: former Comment: 1 TO 1 SITTER PRESENT Patient Tobacco Use Status: Former Tobacco user Tobacco use type: Cigarette Years Smoked: SURAJ Advance Directives: Yes Advance Directives on File: Yes Advance Directives Date on File: 12/14/21 service: No Current occupational status: disabled Physical Exam ED Vital Signs: Vital Signs - 24 hr 09/11/23 09:53 09/11/23 10:13 09/11/23 11:03 Temperature 100.4 F Pulse Rate 92 91 92 Respiratory Rate 20 16 16 Blood Pressure 81/47 L 83/45 L 85/47 L Pulse Oximetry 92 93 Oxygen Delivery Method Room Air Room Air Room Air BMI result Body Mass Index 20.5 Vital signs stable Appearance:Patient opens eyes to voice, appears sick. Head: Normocephalic, atraumatic, no step-offs or deformities Eyes: Pupils equal, round and reactive to light.? ENT: Pharynx normal.? Neck: Normal inspection.? Neck supple.? CVS: Normal heart rate and rhythm.? Pulses normal.? Respiratory: No respiratory distress.? Breath sounds normal.? Abdomen: Soft and nontender.? Skin: Skin warm and dry.? Normal skin color.? Normal skin turgor.? Extremities: No lower extremity edema.? No calf ttp. Global weakness. Moving all extremities however week. Back: No midline tenderness, no C-spine tenderness, full range of motion, no CVA tenderness bilaterally Neuro: Patient not answering questions or following commands. Patient confused. Unable to assess cranial nerves. Course Reevaluation(s) Reevaluation #1: CBC leukocytosis 18.1 I am concerned for possible urosepsis. Infection suspected blood cultures lactic acid and fluids ordered. Also noted to have a low hemoglobin and hematocrit with a normocytic anemia and a positive OBS concerning for acute lower GI bleed. Patient is on Eliquis. Will stop this medication at this time. Will order packed red blood cells 1 unit. Normal platelets. Chemistry pending. Lactic acid 2.7 again I suspect infection secondary to urinary tract infection. UA with gross infection supporting likely diagnosis. Time: 10:39 Reevaluation #2: Chemistry with elevated BUN likely secondary to poor p.o. intake/dehydration. Troponin negative. No signs of rhabdomyolysis. Patient receiving antibiotics. GI bleeding steady pending. Then hospital admission Time: 11:00 Reevaluation #3: Spoke to patients health care proxy brother Lonny and explained brothers medical condition at this time is ok with antibiotics for UTI. But doesn't want blood on his brother at this time. Time: 11:01 Additional Reevaluation(s): Patient's primary care provider/hospitalist on today Dr. Aburto also spoke to patient's brother, after a long discussion all in agreement and Alejo will be made ENGINEER BYPRODUCT, patient does not need to get a CT scan at this time, he will return back to [facility]. At this time ambulance will be called. Medications Administered Discontinued Medications Generic Name Dose Route Start Last Admin Trade Name Freq PRN Reason Stop Dose Admin Acetaminophen 650 mg 09/11/23 10:46 09/11/23 11:03 Acetaminophen Supp 650 Mg Supp.Rect ID 09/11/23 10:47 650 mg ONCE ONE Administration Sodium Chloride 500 mls @ 500 mls/hr 09/11/23 10:30 09/11/23 10:10 Ns IV 09/11/23 11:29 500 mls/hr .Q1H COLIN Administration Ceftriaxone Sodium 1 gm/ 50 mls @ 100 mls/hr 09/11/23 10:20 09/11/23 10:25 Sodium Chloride IV 09/11/23 10:49 100 mls/hr ONCE ONE Administration Medical Decision Making Medical Decision Making MDM Narrative: 62-year-old male presents from [facility] with suspected lower GI bleed. Dark tarry stool this morning. Noted to be anemic on routine labs this morning. As well as have a leukocytosis here Physical exam patient moving all extremities however global weakness. Unable to answer questions. History and physical exam concerning for acute blood loss anemia likely secondary to lower GI bleed. Will rule out metabolic derangements and UTI. Will obtain labs, urine, imaging. Differential Diagnosis Differential Diagnoses: The differential diagnosis associated with the presentation includes History and physical exam concerning for acute blood loss anemia likely secondary to lower GI bleed. Will rule out metabolic derangements and UTI. Admission/Observation Consideration of admission/observation: Escalation of care including admission/observation considered Likely Consult Healthcare Provider Management of the patient was discussed with: Hospitalist Lab Data [facility] Lab Attestation statement: I reviewed the patient's lab results. 09/11/23 10:13 09/11/23 10:12 Labs: Lab Results 09/11/23 09/11/23 09/11/23 Range/Units 09:56 10:03 10:12 WBC (4.8-10.8) X10*3/uL RBC (4.60-5.80) X10*6/uL Hgb (14.0-18.0) g/dl Hct (42.0-52.0) % MCV (80.0-98.0) fL MCH (27.0-33.0) pg MCHC (31.0-36.0) g/dl RDW (11.0-16.0) % Plt Count (160-400) X10*3/uL MPV (9.4-12.4) fL Immature Gran % (Auto) (0.0-0.4) % Neut % (Auto) (45-73) % Lymph % (Auto) (20-40) % [place] % (Auto) (2-11) % Eos % (Auto) (0-4) % Baso % (Auto) (0-2) % Lymph # (Auto) (1.2-4.9) X10*3/uL [place] # (Auto) (0.1-1.2) X10*3/uL Eos # (Auto) (0.0-0.4) X10*3/uL Baso # (Auto) (0.0-0.2) X10*3/uL Abs Immat Gran (auto) (0.00-0.03) X10*3/uL Absolute Neuts (auto) (2.0-8.3) x10*3/uL Absolute Nucleated RBC (0.0-0.012) X10*3/uL Nucleated RBC % (auto) (0.0-0.2) /100WBC PT (11.1-13.3) SEC INR (0.9-1.1) Sodium 141 (135-145) mmol/L Potassium 4.3 (3.3-5.1) mmol/L Chloride 104 (96-108) mmol/L Carbon Dioxide 27 (22-29) mmol/L Anion Gap 14 (12-20) BUN 26 H (9-16) mg/dL Creatinine 0.89 (0.5-1.4) mg/dL Estim Creat Clear Calc 73.5 Estimated GFR > 60 POC Glucose 272 H (60-115) mg/dL Random Glucose 277 H (60-115) mg/dL Lactic Acid (0.5-2.0) mmol/L Calcium 9.6 (8.4-10.2) mg/dL Magnesium 1.8 (1.6-2.6) mg/dL Total Bilirubin 0.3 (0.0-1.0) mg/dL AST 15 (5-37) U/L ALT 16 (0-40) U/L Alkaline Phosphatase 142 H (39-117) U/L Total Creatine Kinase 18 L (38-174) U/L Troponin I High Sens (<3.5-35.0) ng/L B-Natriuretic Peptide 58 (<100) pg/mL Total Protein 6.9 (6.5-8.0) g/dL Albumin 3.4 L (3.5-5.0) g/dL Lipase 9 (8-78) U/L Urine Color Dark Yellow Urine Appearance Turbid Urine pH 6.5 (5.0-9.0) Ur Specific [place] 1.025 (1.005-1.025) Urine Protein 30 (1+) H (Neg-Trace) mg/dL Urine Glucose (UA) Negative (Negative) mg/dL Urine Ketones Trace (Negative) mg/dL Urine Blood Small (1+) H (Negative) Urine Nitrite Positive H (Negative) Ur Leukocyte Esterase Large (3+) H (Negative) Urine RBC 6-10 H (0-2) /HPF Urine WBC >50 H (0-5) /HPF Ur Squamous Epith Cells 0-2 (0-2) /HPF Urine Bacteria 4+ (None Seen) Hyaline Casts 11-20 (0-2) /LPF Stool Occult Blood POSITIVE (NEGATIVE) Urine Opiates Screen Not Detected (Not Detect) Urine Fentanyl Screen Not Detected (Not Detect) Ur Barbiturates Screen Not Detected (Not Detect) Ur Phencyclidine Scrn Not Detected (Not Detect) Ur Amphetamines Screen POSITIVE H (Not Detect) U Benzodiazepines Scrn Not Detected (Not Detect) Urine Cocaine Screen Not Detected (Not Detect) U Marijuana (THC) Screen Not Detected (Not Detect) Ethyl Alcohol < 10 mg/dL COVID-19 (NEEMA) (Negative) COVID-19 Clin Com Blood Type O Positive Antibody Screen NEGATIVE Crossmatch See Detail 09/11/23 Range/Units 10:13 WBC 18.1 H (4.8-10.8) X10*3/uL RBC 2.44 L D (4.60-5.80) X10*6/uL Hgb 6.9 L* D (14.0-18.0) g/dl Hct 21.4 L D (42.0-52.0) % MCV 87.7 (80.0-98.0) fL MCH 28.3 (27.0-33.0) pg MCHC 32.2 (31.0-36.0) g/dl RDW 18.8 H (11.0-16.0) % Plt Count 189 D (160-400) X10*3/uL MPV 11.2 (9.4-12.4) fL Immature Gran % (Auto) 0.6 H (0.0-0.4) % Neut % (Auto) 87.7 H (45-73) % Lymph % (Auto) 6.7 L (20-40) % [place] % (Auto) 4.8 (2-11) % Eos % (Auto) 0.0 (0-4) % Baso % (Auto) 0.2 (0-2) % Lymph # (Auto) 1.2 (1.2-4.9) X10*3/uL [place] # (Auto) 0.9 (0.1-1.2) X10*3/uL Eos # (Auto) 0.0 (0.0-0.4) X10*3/uL Baso # (Auto) 0.0 (0.0-0.2) X10*3/uL Abs Immat Gran (auto) 0.11 H (0.00-0.03) X10*3/uL Absolute Neuts (auto) 15.8 H (2.0-8.3) x10*3/uL Absolute Nucleated RBC 0.070 H (0.0-0.012) X10*3/uL Nucleated RBC % (auto) 0.4 H (0.0-0.2) /100WBC PT 19.1 H D (11.1-13.3) SEC INR 1.6 H (0.9-1.1) Sodium (135-145) mmol/L Potassium (3.3-5.1) mmol/L Chloride (96-108) mmol/L Carbon Dioxide (22-29) mmol/L Anion Gap (12-20) BUN (9-16) mg/dL Creatinine (0.5-1.4) mg/dL Estim Creat Clear Calc Estimated GFR POC Glucose (60-115) mg/dL Random Glucose (60-115) mg/dL Lactic Acid 2.7 H* (0.5-2.0) mmol/L Calcium (8.4-10.2) mg/dL Magnesium (1.6-2.6) mg/dL Total Bilirubin (0.0-1.0) mg/dL AST (5-37) U/L ALT (0-40) U/L Alkaline Phosphatase (39-117) U/L Total Creatine Kinase (38-174) U/L Troponin I High Sens < 2.7 D (<3.5-35.0) ng/L B-Natriuretic Peptide (<100) pg/mL Total Protein (6.5-8.0) g/dL Albumin (3.5-5.0) g/dL Lipase (8-78) U/L Urine Color Urine Appearance Urine pH (5.0-9.0) Ur Specific [place] (1.005-1.025) Urine Protein (Neg-Trace) mg/dL Urine Glucose (UA) (Negative) mg/dL Urine Ketones (Negative) mg/dL Urine Blood (Negative) Urine Nitrite (Negative) Ur Leukocyte Esterase (Negative) Urine RBC (0-2) /HPF Urine WBC (0-5) /HPF Ur Squamous Epith Cells (0-2) /HPF Urine Bacteria (None Seen) Hyaline Casts (0-2) /LPF Stool Occult Blood (NEGATIVE) Urine Opiates Screen (Not Detect) Urine Fentanyl Screen (Not Detect) Ur Barbiturates Screen (Not Detect) Ur Phencyclidine Scrn (Not Detect) Ur Amphetamines Screen (Not Detect) U Benzodiazepines Scrn (Not Detect) Urine Cocaine Screen (Not Detect) U Marijuana (THC) Screen (Not Detect) Ethyl Alcohol mg/dL COVID-19 (NEEMA) Negative (Negative) COVID-19 Clin Com See Note Blood Type Antibody Screen Crossmatch Independent Interpretation I performed an independent interpretation of an: EKG and CT Scan Radiology Impression Discussion of test interpretation with radiology: I have reviewed the radiologist's reading. External Record Review External record reviewed: Inpatient record, Office record, Outpatient record, Prior outpatient labs, Prior outpatient radiology, Primary care record and Outside ED record Chronic Conditions Patient?s care impacted by: Diabetes, Hypertension and Other (Please refer to HPI) Critical Care Time Critical Care Time Critical Care Time: Yes Total Critical Care Time: 60 Attestation: I I attest to this time spent taking care of the patient, obtaining history, physical, reviewing labs, imaging, speaking to my attending, speaking to specialist. Discharge Plan Discharge Clinical Impression: Acute GI bleeding, Acute UTI Patient Disposition: Home, Self-Care Instructions: Urinary Tract Infection in Men (ED) Additional Instructions: Take your medications as prescribed. If you were prescribed antibiotics today, it is important that you take your medication to their entirety, do not skip any doses, do not finish them early. Follow-up with your primary care provider this week. Return to the emergency department with new or worsening symptoms. Such as fevers, chills, chest pain, shortness of breath, nausea, vomiting, dizziness, headache, vision changes, lethargy In case of emergency call 911 Prescriptions: New cefuroxime axetil 250 mg tablet 250 mg PO BID 7 Days Qty: 14 0RF No Action lactulose 10 gram/15 mL solution 30 ml PO DAILY Eliquis 5 mg Tablet 5 mg PO BID Qty: 60 0RF Hold Instructions: Resume on 04/18/23. insulin glargine [Lantus Solostar U-100 Insulin] 100 unit/mL (3 mL) Insulin Pen 20 unit SUBCUT BEDTIME amiodarone 200 mg tablet 200 mg PO DAILY sennosides [senna] 8.6 mg Tablet 8.6 mg PO DAILY PRN (Reason: Constipation) metoprolol tartrate 25 mg tablet 12.5 mg PO BID Protocol: Hold for SBP/HR < HOLD for SBP < : 90 HOLD for HR < : 60 atorvastatin 80 mg tablet 80 mg feeding tube BEDTIME Qty: 30 0RF ferrous sulfate 325 mg (65 mg iron) Tablet 325 mg feeding tube DAILY@1700 Qty: 20 0RF Prilosec 10 mg susp,delayed release for recon 20 mg feeding tube BID Qty: 30 0RF metformin 500 mg tablet 500 mg feeding tube BID Qty: 60 0RF clozapine 100 mg tablet 125 mg PO BID glucagon 1 mg recon soln 1 mg subcut Q20M PRN Rx Instructions: until target blood sugar attained lansoprazole [Acid Refrigeration Specialist (lansoprazole)] 15 mg capsule,delayed release(DR/EC) 15 mg feeding tube DAILY naloxone 0.4 mg/mL solution 0.4 mg subcut Q2M PRN Rx Instructions: NTExceed 10 mg total dose/episode tramadol 50 mg tablet 50 mg PO DAILY levothyroxine 75 mcg tablet 88 mcg feeding tube DAILY@0600 Referrals: Lamonte Jenkins DO [Primary Care Provider] - 2 days
[2023-09-11 09:53] VITALS: BP 81/47; BP 92/56; PULSE 92; RESP 20; TEMP 38; O2SAT 92; O2SAT 94; BMI 20.5
[2023-09-11 10:00] LABS: Glucose, Whole Blood 272 mg/dL (60-115)
[2023-09-11] MEDS: 0.9 % Sodium Chloride 500 ML IV (10:10)
[2023-09-11 10:11] LABS: OBS Int Ctl Valid YES; OBS1 POSITIVE (NEGATIVE)
[2023-09-11 10:13] VITALS: BP 83/45; PULSE 91; RESP 16; O2SAT 93
[2023-09-11 10:15] LABS: Appearance Urine Turbid; Color Urine Dark Yellow; Glucose Urine UA Negative (Negative); Leukocyte Esterase Urine Large (3+) (Negative); Nitrite Urine Positive (Negative); PH 6.5 (5.0-9.0); Specific Gravity - Urine 1.025 (1.005-1.025); UMIC TRIGGER UACC YES; Urine Blood Small (1+) (Negative); Urine Ketones Trace mg/dL (Negative); Urine Protein 30 (1+) mg/dL (Neg-Trace)
[2023-09-11 10:23] LABS: MANUAL DIFF FLAG NO
[2023-09-11] MEDS: cefTRIAXone sodium 1 GM in 0.9 % Sodium Chloride 50 ML IV (10:25)
[2023-09-11 10:28] LABS: Amphetamine Screen Urine POSITIVE (Not Detect); Barbiturates, Urine Not Detected (Not Detect); Benzodiazepines Screen Urine Not Detected (Not Detect); Cannabinoid Screen Urine Not Detected (Not Detect); Cocaine Screen Urine Not Detected (Not Detect); Fentanyl, urine Not Detected (Not Detect); Opiate Screen Urine Not Detected (Not Detect); Phencyclidine Screen Urine Not Detected (Not Detect)
[2023-09-11 10:29] LABS: Basophils Percent Auto 0.2 % (0-2); Hematocrit 21.4 % (42.0-52.0); Imm Gran Abs Auto 0.11 X10*3/uL (0.00-0.03); Imm Gran Pct Auto 0.6 % (0.0-0.4); Lymphocytes Absolute Auto 1.2 X10*3/uL (1.2-4.9); Lymphocytes Percent Auto 6.7 % (20-40); Mean Corpuscular HGB Conc 32.2 g/dl (31.0-36.0); Mean Corpuscular Hemoglobin 28.3 pg (27.0-33.0); Mean Corpuscular Volume 87.7 fL (80.0-98.0); Mean Platelet Volume 11.2 fL (9.4-12.4); Monocytes Absolute Auto 0.9 X10*3/uL (0.1-1.2); Monocytes Percent Auto 4.8 % (2-11); NRBC Pct Auto 0.4 /100WBC (0.0-0.2); Neutrophils Absolute Auto 15.8 x10*3/uL (2.0-8.3); Neutrophils Percent Auto 87.7 % (45-73); Platelet Count 189 X10*3/uL (160-400); Red Blood Count 2.44 X10*6/uL (4.60-5.80); Red Cell Distribution Width 18.8 % (11.0-16.0); White Blood Count 18.1 X10*3/uL (4.8-10.8)
[2023-09-11 10:30] LABS: INTERNATIONAL NORM RATIO 1.6 (0.9-1.1); Prothrombin Time 19.1 SEC (11.1-13.3)
[2023-09-11 10:33] LABS: Bacteria Urine 4+ (None Seen); Squamous Epithelial Cell Urine 0-2 /HPF (0-2); UACC Culture Trigger YES; WBC Urine >50 /HPF (0-5)
[2023-09-11 10:34] LABS: Hemoglobin 6.9 g/dl (14.0-18.0)
[2023-09-11 10:38] LABS: Lactic Acid 2.7 mmol/L (0.5-2.0)
[2023-09-11 10:41] LABS: Alanine Aminotransferase 16 U/L (0-40); Albumin Level 3.4 g/dL (3.5-5.0); Alkaline Phosphatase 142 U/L (39-117); Anion Gap 14 (12-20); Aspartate Amino Transferase 15 U/L (5-37); Bilirubin Total 0.3 mg/dL (0.0-1.0); Blood Urea Nitrogen 26 mg/dL (9-16); Calcium 9.6 mg/dL (8.4-10.2); Carbon Dioxide 27 mmol/L (22-29); Chloride 104 mmol/L (96-108); Creatinine Clr Calc Pharmacy 73.5; Estimated Glomerular Filt Rate > 60; Glucose Random 277 mg/dL (60-115); Lipase 9 U/L (8-78); Magnesium 1.8 mg/dL (1.6-2.6); Potassium 4.3 mmol/L (3.3-5.1); Sodium 141 mmol/L (135-145); Total Protein 6.9 g/dL (6.5-8.0)
[2023-09-11 10:42] LABS: COVID-19 Test Negative (Negative); IDNOW Serial# 55D5AD1C
[2023-09-11 10:43] LABS: Ethanol < 10 mg/dL
[2023-09-11 10:45] LABS: B Type Natriuretic Peptide 58 pg/mL (<100)
[2023-09-11 10:51] LABS: Troponin-I High Sensitivity < 2.7 ng/L (<3.5-35.0)
--- NOTE | 2023-09-11 10:57 | PC.NURSE ---
Provider aware of BP continuing in the 80's, fluids running per MAR, pt remains pale diaphoretic, RN at bedside placing US IV, will give MN APAP once IV placed.
[2023-09-11 11:03] VITALS: BP 85/47; PULSE 92; RESP 16
[2023-09-11] MEDS: Acetaminophen Supp 650 MG SUPP.RECT PR (11:03)
--- NOTE | 2023-09-11 11:04 | PC.NURSE ---
500cc fluid running, sepsis fluids to start after 500cc finishes.
--- NOTE | 2023-09-11 11:19 | PC.NURSE ---
Goals of care conversation happening between family and providers, blood transfusion d/c at this time. Awaiting further goals of care
--- NOTE | 2023-09-11 11:28 | P.EN_ITS ---
Event Note Date of Service: 09/11/23 Event Note: 62-year-old male well known to me from [facility] presents with recurrent GI bleed and profound anemia. Patient is hypotensive as well. He has had multiple presentations similar to this in past. Call placed to Lonny Graff his proxy. After discussion with Lonny all in agreement that Aleoj to be made CIVIL PREPAREDNESS OFFICER and return to [facility]. I will make arrangements for CIVIL PREPAREDNESS OFFICER and follow him there Time Spent With Patient Time: Total time managing care of this patient today ____ minutes.
--- NOTE | 2023-09-11 11:28 | PM.EVENT ---
Event Note Date of Service: 09/11/23 Event Note: 62-year-old male well known to me from [facility] presents with recurrent GI bleed and profound anemia. Patient is hypotensive as well. He has had multiple presentations similar to this in past. Call placed to Lonny Graff his proxy. After discussion with Lonny all in agreement that Alejo to be made CLINICAL RESOURCE NURSE and return to [facility]. I will make arrangements for CLINICAL RESOURCE NURSE and follow him there Time Spent With Patient Time: Total time managing care of this patient today ____ minutes.
--- NOTE | 2023-09-11 11:39 | PC.NURSE ---
Pt is to transition to WALLP[employer]ER [employer], no further interventions being taken, pt to be transferred back to [facility] by ambulance
[2023-09-11 12:21] LABS: Reflex Lactate? Lactic Acid Added
[2023-09-11 12:33] VITALS: BP 80/48; PULSE 90; RESP 15; O2SAT 95
== END 2023-09-11 13:30 | disposition home or self-care (01) ==
PROVIDERS: Physician Assistant; Emergency Provider Emergency Medicine; PCP Hospitalist
DX: K92.2 Gastrointestinal hemorrhage, unspecified (principal); N39.0 Urinary tract infection, site not specified; K92.1 Melena; I10 Essential (primary) hypertension; J44.9 Chronic obstructive pulmonary disease, unspecified; E11.9 Type 2 diabetes mellitus without complications; I48.91 Unspecified atrial fibrillation; E03.9 Hypothyroidism, unspecified; G31.84 Mild cognitive impairment of uncertain or unknown etiology; D64.9 Anemia, unspecified; Z79.01 Long term (current) use of anticoagulants; Z11.52 Encounter for screening for COVID-19; Z79.899 Other long term (current) drug therapy
CPT/HCPCS: 71045; 80053; 80307; 81001; 82272; 82550; 82947; 83605; 83690; 83735; 83880; 84484; 85025; 85610; 86850; 86900; 86901; 86923; 87040; 87086; 87635; 93005; 96374; 99285; J0696

== ENCOUNTER → 2023-09-11 09:48 | Outpatient (BNV) | payer MEDICARE, MEDICAID, SELFPAY | PROVIDERS: Emergency Provider Emergency Medicine; PCP Hospitalist; Visit Provider Internal Medicine Cardiovascular Disease | DX: I95.9 Hypotension, unspecified (principal) | CPT/HCPCS: 93010 ==